=== PATIENT | male | born 1985 | race Caucasian/White ===

== ENCOUNTER 2017-11-04 05:21 | Inpatient (IN) ==
[2017-11-04 05:57] LABS: Baso % (Auto) 0.2 % (0.0-2.0); Eos # (Auto) 0.1 th/mm3 (0.0-0.4); Eos % (Auto) 0.4 % (0.0-4.0); Hematocrit 36.4 % (39.0-51.0); Hemoglobin 12.6 gm/dL (13.0-17.0); Lymph # (Auto) 0.5 th/mm3 (1.0-4.8); Lymph % (Auto) 3.2 % (9.0-44.0); Mean Corpuscular HGB Conc 34.7 % (32.0-36.0); Mean Corpuscular Hemoglobin 28.3 pg (27.0-34.0); Mean Corpuscular Volume 81.5 fL (80.0-100.0); Mean Platelet Volume 10.7 fL (7.0-11.0); Mono # (Auto) 0.8 th/mm3 (0.0-0.9); Mono % (Auto) 4.8 % (0.0-8.0); Neut # (Auto) 14.6 th/mm3 (1.8-7.7); Neut % (Auto) 91.4 % (16.0-70.0); Platelet Count 112 th/mm3 (150-450); Red Blood Count 4.47 mil/mm3 (4.50-5.90); Red Cell Distribution Width 12.9 % (11.6-17.2)
[2017-11-04 06:12] LABS: Activated Partial Thrombo Time 44.8 sec (24.3-30.1); Prothrombin Time 91.7 sec (9.8-11.6)
[2017-11-04 06:14] LABS: INR 9.2 Ratio
--- NOTE | 2017-11-04 06:14 | ED ---
HPI General Chief complaint: Altered Mental Status Stated complaint: Poss OD Time Seen by Provider: 11/04/17 05:39 Source: patient and EMS Mode of arrival: EMS Limitations: altered mental status History of Present Illness HPI narrative: The patient is a 31 year old male who presents to the [facility] emergency department with a history of being found on the kitchen floor by friends prior to arrival. The patient according to ambulance services had suspected overdose, however the patient was unable or unwilling to say what drugs he has taken. The patient was noted to have difficulty moving his right upper and right lower extremity on arrival. The patient also was experiencing an expressive aphasia. Stroke alert was called by me. The patient's history was limited due to the expressive aphasia. The patient was only able to say his name with difficulty. The patient also seem to have difficulty understanding commands as when asked to follow commands he would repeatedly say "when." And again was unable or unwilling to cooperate. The patient was unable to provide any of his past medical history. The patient's medical history was obtained from reviewing the electronic medical record. The patient intermittently is crying on exam on examination. He was able to state that he does not feel well. He denies having any nausea. A review of the electronic medical record reveals that the patient was just recently in the emergency department for evaluation of headache, myalgias, low back pain. Patient had reported IV drug use of heroin at that time. Evaluation was done on October 30, 2017, 5 days ago. The patient underwent blood work which revealed a mild hypokalemia, T scan of the brain that showed no acute abnormality, T-spine and L -spine MRI that showed no patient was noted to be tachycardic and did have blood cultures done at that time that all grew out Staphylococcus aureus. Related Data Home Medications Medication Instructions Recorded Confirmed No Known Home Medications 11/04/17 11/04/17 Allergies Allergy/AdvReac Type Severity Reaction Status Date / Time No Known Allergies Allergy Unverified 10/30/17 21:54 Review of Systems ROS Unobtainable unobtainable due to mental status (Patient is a poor historian with expressive aphasia.) PMFSH History History Provided By: Patient Medical History Medical History IV drug user (Acute) Diabetes (Acute) Hypertension (Acute) Social History Social History Substance History: Unable to Obtain Second Hand Smoke Exposure: No Smoking Status: Unknown if ever smoked How Often Do You Have a Drink Containing Alcohol: Unable to Obtain Recent Travel in [facility] within the Last 8 Weeks: No Recent Out of Country Travel within the Last 8 Weeks: No Exam Const General: no acute distress and well developed Nutritional Appearance: well nourished Orientation: awake, oriented to person, not oriented to place, not oriented to time and confused Limitations: altered mental status [facility] Head: normocephalic and atraumatic Nose: no nasal discharge and no epistaxis Mouth: moist mucous membranes Throat: posterior oropharynx normal Eyes Sclera: normal sclerae Pupils: PERRL Neck Neck: no meningeal signs, trachea midline and no JVD Resp Effort & Inspection: no use of accessory muscles Auscultation: clear to auscultation bilaterally Cardio Rate: regular rate Rhythm: regular rhythm Heart Sounds: no murmurs GI Inspection: non-distended Palpation: soft, no hepatosplenomegaly and nontender Back/Spine/Pelvis Back: no CVA tenderness Cervical Spine: No cervical spinal tenderness Thoracic/Lumbar Spine: No thoracic spinal tenderness and No lumbar spinal tenderness Skin General: dry skin (warm) and other (Patient is noted to have track fan extremities. The patient is noted on examination of his palms to have what appears to be osler's nodes, erythematous nodules palms.) Neuro General: alert, awake and oriented (Person, however not place, time, or situation) Cranial Nerves: CN's II-XI intact bilaterally Speech: expressive aphasia and receptive aphasia Motor: muscle tone abnormal (Flaccid paralysis right lower extremity, paresis of the right upper extremity) Sensory Exam: other (Decreased sensation in the right upper and right lower extremity) Coordination: other (Uncooperative with coordination testing) Extrem General: normal to inspection, no clubbing, no cyanosis and no edema Psych Mood: congruent mood Affect: normal affect Judgment: judgment good Course Consultations Consultation #1: The patient's case including history, pertinent physical examination findings, and laboratory studies were discussed with Dr. Barton, the neurosurgeon, at approximately 6:15 AM. It was agreed that the patient would be admitted to the piano sounding board matcher's service. Consultation #2: The patient's case including history, pertinent physical examination findings, and laboratory studies were discussed with Dr Grimm, the piano sounding board matcher, at approximately 6:20 AM. It was agreed that the patient would be admitted to his service. Initial Documented Vital Signs Pulse Oximetry 98 11/04/17 05:35 Last Documented Vital Signs Temperature 98.9 F 11/04/17 06:05 Pulse Rate 107 H 11/04/17 07:02 Respiratory Rate 16 11/04/17 07:02 Blood Pressure 117/55 L 11/04/17 07:02 Pulse Oximetry 98 11/04/17 07:03 Critical Care Time Critical Care Time: Yes Total Critical Care Time: 38 Attestation: Aggregate critical care time was a 38 minutes. Time to perform other separately billable procedures was not included in the critical care time. My time did not include minutes spent treating any other patients simultaneously or on activities that did not directly contribute to the patient's treatment. The services I provided to this patient were to treat and/or prevent clinically significant deterioration that could result in: I provided critical care services requiring my management, as noted below: Chart data review, documentation time, medication orders and management, vital sign assessments/reviewing monitor data, ordering and reviewing lab tests, ordering and interpreting/reviewing x-rays and diagnostic studies, care of the patient and discussion of the patient with the admitting physicians. NIH Stroke Scale NIHSS Time Completed NIHSS Time Completed: 05:46 NIH Stroke Scale Level of Consciousness: 1-Drowsy Orientation Questions: 1-One task correct Responds to Commands: 1-One task correct Gaze Eye Movement: 0-Horizontal movement WNL Visual Abreu: 0-No visual field defect Facial Movement: 0-Normal Motor Functions Arm LEFT: 0-No drift Motor Functions Arm RIGHT: 2-Falls before 10 seconds Motor Functions Leg LEFT: 0-No drift Motor Functions Leg RIGHT: 3-No effort against gravity Limb Ataxia: 0-No ataxia Sensory Loss: 1-Mild sensory loss Best Language: 1-Mild aphasia Articulation: 0-Normal Extinction or Inattention Sensory: 0-Absent Total: 10 Medical Decision Making MDM Narrative Medical decision making narrative: During the course of the patient's emergency department visit, the patient's history, examination, and differential diagnosis were reviewed with the patient. The patient was placed on a cardiac care unit nurse with oximetry and frequent blood pressure monitoring. The patient had IV access obtained and blood work sent for analysis. A diagnostic evaluation was started regarding this patient's new neurologic symptoms. A stroke alert was called. The patient's case was initially discussed with Dr. Laureano. At the time of onset of symptoms is unknown, he reports that the patient is not a TPA candidate. The patient was initially provided normal saline IV fluids at 70 mL/h. The patient's head of the bed was placed flat. Dr. Ellis, the radiologist, called regarding the patient CT scan of the brain findings. The patient's CT scan of the brain revealed new subcortical white matter infarct posteriorly in the right parietal lobe, also appears to be some faint subarachnoid hemorrhage over the high parietal convexities, no fracture. The patient's INR was noted to be 9.2. A call was placed out to the neurosurgeon. I spoke to Dr. Barton regarding this patient's case. He agreed with the plan to proceed with MRI of the brain with and without contrast after the patient's history, examination, and laboratory to studies were discussed with him. As the hospital is out of [facility], he agreed with the plan to proceed with administration of fresh frozen plasma. I then spoke to Dr. Grimm, the piano sounding board matcher on-call who did agree to have the patient for further evaluation and treatment at this time. The patient's other laboratory studies are remarkable for a white count of 16, toxic vacuolation present, toxic granulation present, platelets 112, neutrophil predominance at 91.4, hemoglobin is 12.6. PT 91.7, fibrinogen 555, PTT 44.8, VBG reveals a pH of 7.48, bicarb 26.2, chemistry is remarkable for a lactic acid of 2.3, troponin I 0.48, sodium 132, potassium 2.9, chloride 94, total protein 8.6, total bilirubin is 1.1, sodium 134, alk phos 149, urinalysis shows 30 protein moderate occult blood few mucus. Salicylate is 28.1. CTA of the head and neck showed no acute abnormality. The patient's chest x- ray shows a patchy left perihilar and right basilar airspace disease with possible developing right-sided effusion. The patient was admitted to the hospital in critical condition and sent to a bed under the care of the piano sounding board matcher's service. Differential Diagnosis Differential Diagnosis: Septic embolization to the brain, versus endocarditis, versus ischemic stroke, versus intracranial hemorrhage, versus encephalopathy related to sepsis Medical Records Medical records reviewed: Yes I reviewed the patient's medical records. Lab Data Lab results reviewed: Yes I reviewed the patient's lab results. Result diagrams: 11/04/17 05:45 Lab Results 11/04/17 11/04/17 11/04/17 Range/Units 05:45 05:45 05:45 WBC 16.0 H (4.0-11.0) th/mm3 RBC 4.47 L (4.50-5.90) mil/mm3 Hgb 12.6 L (13.0-17.0) gm/dL POC Hgb (Calc) 12.6 L (13.0-17.0) g/dL Hct 36.4 L (39.0-51.0) % POC Hct 37.0 L (39-51.0) % MCV 81.5 (80.0-100.0) fL MCH 28.3 (27.0-34.0) pg MCHC 34.7 (32.0-36.0) % RDW 12.9 (11.6-17.2) % Plt Count 112 L (150-450) th/mm3 MPV 10.7 (7.0-11.0) fL Prelim Diff (Auto) Slide review pending Neut % (Auto) 91.4 H (16.0-70.0) % Lymph % (Auto) 3.2 L (9.0-44.0) % [place] % (Auto) 4.8 (0.0-8.0) % Eos % (Auto) 0.4 (0.0-4.0) % Baso % (Auto) 0.2 (0.0-2.0) % Neut # (Auto) 14.6 H (1.8-7.7) th/mm3 Lymph # (Auto) 0.5 L (1.0-4.8) th/mm3 [place] # (Auto) 0.8 (0.0-0.9) th/mm3 Eos # (Auto) 0.1 (0.0-0.4) th/mm3 Baso # (Auto) 0.0 (0.0-0.2) th/mm3 WBC Differential Manual diff final Seg Neuts % (Manual) 79 H (16-70) % Band Neuts % (Manual) 8 H (0-6) % Lymphocytes % (Manual) 5 L (9-44) % Monocytes % (Manual) 6 (0-8) % Metamyelocytes % (Man) 2 H (0-1) % Abs Neuts (Manual) 14.2 H (1.8-7.7) th/mm3 Nucleated RBCs/100 WBC 1 H (0-0) /100 WBC Differential Comment . Toxic Granulation 1+ H (None) Toxic Vacuolation Present H (None) Platelet Estimate Low L (Normal) Platelet Morphology Normal (Normal) RBC Morphology Normal (Normal) PT 91.7 H (9.8-11.6) sec INR 9.2 H* Ratio APTT 44.8 H (24.3-30.1) sec Fibrinogen 555 H (227-377) mg/dL Puncture Site Patient Temperature VBG pH (7.360-7.400) VBG pCO2 (44-48) mmHG VBG pO2 (35-40) mmHG VBG HCO3 (22-26) mmol/L VBG O2 Saturation (70-76) % VBG O2 Content (9.0-17.0) Vol % VBG Base Excess (-2-2) mmol/L VBG Carboxyhemoglobin (0-4) % VBG Methemoglobin (0-2) % Hemoglobin (12.0-16.0) G/DL O2 Delivery Device Liter Flow L/M Inspired O2 % Critical Value POC Sodium 132 L (137-144) mmol/L POC Potassium 2.9 L* (3.6-5.0) mmol/L POC Chloride 94 L (102-111) mmol/L POC BUN 21 (5-21) mg/dL POC Creatinine 1.3 (0.6-1.3) mg/dL POC Glucose 108 (68-110) mg/dL Lactic Acid (0.4-2.0) mmol/L Total Creatine Kinase 52 (39-308) U/L Troponin I 0.48 H (0.02-0.05) ng/mL Urine Color (Yellw/Straw) Urine Clarity (Clear) Urine pH (5.0-8.5) Ur Specific [place] (1.002-1.035) Urine Protein (Neg-Trace) mg/dL Urine Glucose (UA) (Negative) mg/dL Urine Ketones (Negative) mg/dL Urine Occult Blood (Negative) Urine Nitrate (Negative) Urine Bilirubin (Negative) Urine Urobilinogen (Less than 2) mg/dL Ur Leukocyte Esterase (Negative) Urine RBC (0-3) /hpf Urine WBC (0-5) /hpf Amorphous Sediment (None) /hpf Urine Mucus (Occasional) /lpf Micro UA Comment Urine Culture Comments Salicylates (2.8-20.0) mg/dL Serum Alcohol Less than 3 (0-5) mg/dL Blood Type Blood Type Recheck Antibody Screen 11/04/17 11/04/17 11/04/17 Range/Units 05:45 05:45 05:45 WBC (4.0-11.0) th/mm3 RBC (4.50-5.90) mil/mm3 Hgb (13.0-17.0) gm/dL POC Hgb (Calc) (13.0-17.0) g/dL Hct (39.0-51.0) % POC Hct (39-51.0) % MCV (80.0-100.0) fL MCH (27.0-34.0) pg MCHC (32.0-36.0) % RDW (11.6-17.2) % Plt Count (150-450) th/mm3 MPV (7.0-11.0) fL Prelim Diff (Auto) Neut % (Auto) (16.0-70.0) % Lymph % (Auto) (9.0-44.0) % [place] % (Auto) (0.0-8.0) % Eos % (Auto) (0.0-4.0) % Baso % (Auto) (0.0-2.0) % Neut # (Auto) (1.8-7.7) th/mm3 Lymph # (Auto) (1.0-4.8) th/mm3 [place] # (Auto) (0.0-0.9) th/mm3 Eos # (Auto) (0.0-0.4) th/mm3 Baso # (Auto) (0.0-0.2) th/mm3 WBC Differential Seg Neuts % (Manual) (16-70) % Band Neuts % (Manual) (0-6) % Lymphocytes % (Manual) (9-44) % Monocytes % (Manual) (0-8) % Metamyelocytes % (Man) (0-1) % Abs Neuts (Manual) (1.8-7.7) th/mm3 Nucleated RBCs/100 WBC (0-0) /100 WBC Differential Comment Toxic Granulation (None) Toxic Vacuolation (None) Platelet Estimate (Normal) Platelet Morphology (Normal) RBC Morphology (Normal) PT (9.8-11.6) sec INR Ratio APTT (24.3-30.1) sec Fibrinogen (227-377) mg/dL Puncture Site Patient Temperature VBG pH (7.360-7.400) VBG pCO2 (44-48) mmHG VBG pO2 (35-40) mmHG VBG HCO3 (22-26) mmol/L VBG O2 Saturation (70-76) % VBG O2 Content (9.0-17.0) Vol % VBG Base Excess (-2-2) mmol/L VBG Carboxyhemoglobin (0-4) % VBG Methemoglobin (0-2) % Hemoglobin (12.0-16.0) G/DL O2 Delivery Device Liter Flow L/M Inspired O2 % Critical Value POC Sodium (137-144) mmol/L POC Potassium (3.6-5.0) mmol/L POC Chloride (102-111) mmol/L POC BUN (5-21) mg/dL POC Creatinine (0.6-1.3) mg/dL POC Glucose (68-110) mg/dL Lactic Acid (0.4-2.0) mmol/L Total Creatine Kinase (39-308) U/L Troponin I (0.02-0.05) ng/mL Urine Color (Yellw/Straw) Urine Clarity (Clear) Urine pH (5.0-8.5) Ur Specific [place] (1.002-1.035) Urine Protein (Neg-Trace) mg/dL Urine Glucose (UA) (Negative) mg/dL Urine Ketones (Negative) mg/dL Urine Occult Blood (Negative) Urine Nitrate (Negative) Urine Bilirubin (Negative) Urine Urobilinogen (Less than 2) mg/dL Ur Leukocyte Esterase (Negative) Urine RBC (0-3) /hpf Urine WBC (0-5) /hpf Amorphous Sediment (None) /hpf Urine Mucus (Occasional) /lpf Micro UA Comment Urine Culture Comments Salicylates 28.1 H (2.8-20.0) mg/dL Serum Alcohol Cancelled (0-5) mg/dL Blood Type B Positive Blood Type Recheck Required Antibody Screen Negative 07/23/18 07/23/18 07/23/18 Range/Units 05:45 06:20 06:45 WBC (4.0-11.0) th/mm3 RBC (4.50-5.90) mil/mm3 Hgb (13.0-17.0) gm/dL POC Hgb (Calc) (13.0-17.0) g/dL Hct (39.0-51.0) % POC Hct (39-51.0) % MCV (80.0-100.0) fL MCH (27.0-34.0) pg MCHC (32.0-36.0) % RDW (11.6-17.2) % Plt Count (150-450) th/mm3 MPV (7.0-11.0) fL Prelim Diff (Auto) Neut % (Auto) (16.0-70.0) % Lymph % (Auto) (9.0-44.0) % [place] % (Auto) (0.0-8.0) % Eos % (Auto) (0.0-4.0) % Baso % (Auto) (0.0-2.0) % Neut # (Auto) (1.8-7.7) th/mm3 Lymph # (Auto) (1.0-4.8) th/mm3 [place] # (Auto) (0.0-0.9) th/mm3 Eos # (Auto) (0.0-0.4) th/mm3 Baso # (Auto) (0.0-0.2) th/mm3 WBC Differential Seg Neuts % (Manual) (16-70) % Band Neuts % (Manual) (0-6) % Lymphocytes % (Manual) (9-44) % Monocytes % (Manual) (0-8) % Metamyelocytes % (Man) (0-1) % Abs Neuts (Manual) (1.8-7.7) th/mm3 Nucleated RBCs/100 WBC (0-0) /100 WBC Differential Comment Toxic Granulation (None) Toxic Vacuolation (None) Platelet Estimate (Normal) Platelet Morphology (Normal) RBC Morphology (Normal) PT (9.8-11.6) sec INR Ratio APTT (24.3-30.1) sec Fibrinogen Cancelled (227-377) mg/dL Puncture Site Patient Temperature VBG pH (7.360-7.400) VBG pCO2 (44-48) mmHG VBG pO2 (35-40) mmHG VBG HCO3 (22-26) mmol/L VBG O2 Saturation (70-76) % VBG O2 Content (9.0-17.0) Vol % VBG Base Excess (-2-2) mmol/L VBG Carboxyhemoglobin (0-4) % VBG Methemoglobin (0-2) % Hemoglobin (12.0-16.0) G/DL O2 Delivery Device Liter Flow L/M Inspired O2 % Critical Value POC Sodium (137-144) mmol/L POC Potassium (3.6-5.0) mmol/L POC Chloride (102-111) mmol/L POC BUN (5-21) mg/dL POC Creatinine (0.6-1.3) mg/dL POC Glucose (68-110) mg/dL Lactic Acid 2.3 H (0.4-2.0) mmol/L Total Creatine Kinase (39-308) U/L Troponin I (0.02-0.05) ng/mL Urine Color Yellow (Yellw/Straw) Urine Clarity Hazy H (Clear) Urine pH 5.0 (5.0-8.5) Ur Specific [place] 1.017 (1.002-1.035) Urine Protein 30 H (Neg-Trace) mg/dL Urine Glucose (UA) Negative (Negative) mg/dL Urine Ketones Trace (Negative) mg/dL Urine Occult Blood Moderate H (Negative) Urine Nitrate Negative (Negative) Urine Bilirubin Negative (Negative) Urine Urobilinogen 2.0 H (Less than 2) mg/dL Ur Leukocyte Esterase Negative (Negative) Urine RBC 3 (0-3) /hpf Urine WBC 5 (0-5) /hpf Amorphous Sediment Occasional H (None) /hpf Urine Mucus Few H (Occasional) /lpf Micro UA Comment Cath-culture not ind Urine Culture Comments Cath-cult not ind Salicylates (2.8-20.0) mg/dL Serum Alcohol (0-5) mg/dL Blood Type Blood Type Recheck Antibody Screen 11/04/17 Range/Units 06:45 WBC (4.0-11.0) th/mm3 RBC (4.50-5.90) mil/mm3 Hgb (13.0-17.0) gm/dL POC Hgb (Calc) (13.0-17.0) g/dL Hct (39.0-51.0) % POC Hct (39-51.0) % MCV (80.0-100.0) fL MCH (27.0-34.0) pg MCHC (32.0-36.0) % RDW (11.6-17.2) % Plt Count (150-450) th/mm3 MPV (7.0-11.0) fL Prelim Diff (Auto) Neut % (Auto) (16.0-70.0) % Lymph % (Auto) (9.0-44.0) % [place] % (Auto) (0.0-8.0) % Eos % (Auto) (0.0-4.0) % Baso % (Auto) (0.0-2.0) % Neut # (Auto) (1.8-7.7) th/mm3 Lymph # (Auto) (1.0-4.8) th/mm3 [place] # (Auto) (0.0-0.9) th/mm3 Eos # (Auto) (0.0-0.4) th/mm3 Baso # (Auto) (0.0-0.2) th/mm3 WBC Differential Seg Neuts % (Manual) (16-70) % Band Neuts % (Manual) (0-6) % Lymphocytes % (Manual) (9-44) % Monocytes % (Manual) (0-8) % Metamyelocytes % (Man) (0-1) % Abs Neuts (Manual) (1.8-7.7) th/mm3 Nucleated RBCs/100 WBC (0-0) /100 WBC Differential Comment Toxic Granulation (None) Toxic Vacuolation (None) Platelet Estimate (Normal) Platelet Morphology (Normal) RBC Morphology (Normal) PT (9.8-11.6) sec INR Ratio APTT (24.3-30.1) sec Fibrinogen (227-377) mg/dL Puncture Site By electric meter installer from iv Patient Temperature 98.6 VBG pH 7.48 H (7.360-7.400) VBG pCO2 35 L (44-48) mmHG VBG pO2 25 L* (35-40) mmHG VBG HCO3 26 (22-26) mmol/L VBG O2 Saturation 39 L (70-76) % VBG O2 Content 7.1 L (9.0-17.0) Vol % VBG Base Excess 2.9 H (-2-2) mmol/L VBG Carboxyhemoglobin 0.9 (0-4) % VBG Methemoglobin 0.7 (0-2) % Hemoglobin 12.9 (12.0-16.0) G/DL O2 Delivery Device Nasal cannula Liter Flow 2.00 L/M Inspired O2 21 % Critical Value Yes POC Sodium (137-144) mmol/L POC Potassium (3.6-5.0) mmol/L POC Chloride (102-111) mmol/L POC BUN (5-21) mg/dL POC Creatinine (0.6-1.3) mg/dL POC Glucose (68-110) mg/dL Lactic Acid (0.4-2.0) mmol/L Total Creatine Kinase (39-308) U/L Troponin I (0.02-0.05) ng/mL Urine Color (Yellw/Straw) Urine Clarity (Clear) Urine pH (5.0-8.5) Ur Specific [place] (1.002-1.035) Urine Protein (Neg-Trace) mg/dL Urine Glucose (UA) (Negative) mg/dL Urine Ketones (Negative) mg/dL Urine Occult Blood (Negative) Urine Nitrate (Negative) Urine Bilirubin (Negative) Urine Urobilinogen (Less than 2) mg/dL Ur Leukocyte Esterase (Negative) Urine RBC (0-3) /hpf Urine WBC (0-5) /hpf Amorphous Sediment (None) /hpf Urine Mucus (Occasional) /lpf Micro UA Comment Urine Culture Comments Salicylates (2.8-20.0) mg/dL Serum Alcohol (0-5) mg/dL Blood Type Blood Type Recheck Antibody Screen Imaging Data Radiologist's impression: Chest X-Ray 11/04/17 05:39 CONCLUSION: 1. Patchy left perihilar and right basilar airspace disease with possible developing right-sided effusion. 2. Lungs are hypoinflated. Head CT 11/04/17 05:39 CONCLUSION: 1. There appear to be new, subcortical white matter infarct posteriorly in the right parietal lobe. 2. There also appears to be some faint subarachnoid hemorrhage over the high parietal convex cities bilaterally 3. No fractures, Report was called by [ Dr. Ellis to Dr. Sloan in the ED at 0614 hours] Head CTA 11/04/17 05:39 CONCLUSION: 1. Patient is left vertebral dominant. 2. Otherwise, intracranial vessels are all patent without embolic or aneurysmal disease. Neck CTA 11/04/17 05:39 CONCLUSION: 1. Patient is left vertebral dominant. 2. Otherwise, arch and cervical vessels are patent throughout. Discharge Plan Discharge Disposition Patient Disposition: 30 Still Patient Discharge Condition Condition: Critical Discharge Details Diagnosis: Neurologic abnormality, Altered mental status, Sepsis Physicians Team ED Provider: Yodit Sloan Primary Care Provider: Primary Care Anisa Dotson Attending Provider: Stephen Grimm Other Providers: Barrera Robb ; Ambrosio Barton ; Clara Tellez Status ED Status: Admitted Patient
[2017-11-04 06:15] LABS: Creatine Kinase 52 U/L (39-308); Troponin I 0.48 ng/mL (0.02-0.05)
--- NOTE | 2017-11-04 06:16 | CT ---
EXAM DATE: 11/04/2017 6:05 AM EDT AGE/SEX: 31 years / Male INDICATIONS: Stroke Alert. Altered mental status. CLINICAL DATA: This is the patient's initial encounter. Patient reports that signs and symptoms have been present for 1 day and indicates a pain score of 0/10. MEDICAL/SURGICAL HISTORY: None. None. RADIATION DOSE: 56.34 CTDI (mGy) [place] [facility] [place]. . TECHNIQUE: CT of the head without contrast. Using automated exposure control and adjustment of the mA and/or kV according to patient size, radiation dose was kept as low as reasonably achievable to ob tain optimal diagnostic quality images. DICOM format image data is available electronically for revi ew and comparison. FINDINGS: Cerebrum: The ventricles are normal for age. Faint area of hypodensity in the peripheral white matte r posteriorly in the right parietal lobe. There appears to be some faint subarachnoid hemorrhage in the perivertexl sulci bilaterally. No extraaxial fluid collections are seen. Posterior Fossa: The cerebellum and brainstem are intact. The 4th ventricle is midline. The cerebe llopontine angle is unremarkable. Extracranial: The visualized portion of the orbits is intact. Skull: The calvaria is intact. No evidence of skull fracture. CONCLUSION: 1. There appear to be new, subcortical white matter infarct posteriorly in the right parietal lobe. 2. There also appears to be some faint subarachnoid hemorrhage over the high parietal convex cities bilaterally 3. No fractures, Report was called by [ Dr. Ellis to Dr. Sloan in the ED at 0614 hours] Electronically signed by: Javier Ellis MD 11/04/2017 6:15 AM EDT
--- NOTE | 2017-11-04 06:20 | CT ---
EXAM DATE: 11/04/2017 6:07 AM EDT AGE/SEX: 31 years / Male INDICATIONS: Stroke alert; patient is non responsive and does not move his right leg. CLINICAL DATA: This is the patient's initial encounter. Patient reports that signs and symptoms have been present for 1 day and indicates a pain score of Nonresponsive. MEDICAL/SURGICAL HISTORY: Non-responsive. Non-responsive. RADIATION DOSE: 9.74 CTDI (mGy) ; Combined studies [place]PAR[place]: [facility] [place]. . TECHNIQUE: Volumetric scanning was performed using a multi-row detector CT scanner during bolus infu alexsandra of 100 ml Visipaque 320 (iodixanol) nonionic water-soluble contrast as a cumulative dose for mu ltiple exams. The data was post processed with a variety of visualization algorithms including full volume maximum intensity projection, multi-planar sliding thin slab reformation, curved planar refor mation, and surface rendering techniques. Using automated exposure control and adjustment of the mA and/or kV according to patient size, radiation dose was kept as low as reasonably achievable to obtai n optimal diagnostic quality images. DICOM format image data is available electronically for review and comparison. FINDINGS: There is excellent visualization of the major intracranial arteries out to the second-order branch ve ssels. There is no evidence for aneurysm, vessel truncation or stenosis, and no evidence for vascula r malformation. Patient is left vertebral dominant with the right vertebral possibly terminating in PICA branch CONCLUSION: 1. Patient is left vertebral dominant. 2. Otherwise, intracranial vessels are all patent without embolic or aneurysmal disease. Electronically signed by: Javier Ellis MD 11/04/2017 6:19 AM EDT
--- NOTE | 2017-11-04 06:21 | XR ---
EXAM DATE: 11/04/2017 6:16 AM EDT AGE/SEX: 31 years / Male INDICATIONS: Stroke alert. CLINICAL DATA: This is the patient's initial encounter. Patient reports that signs and symptoms have been present for 1 day and indicates a pain score of 0/10. MEDICAL/SURGICAL HISTORY: None. None. COMPARISON: [facility] – [place], CHEST 1V SINGLE AP, 10/30/2017. . FINDINGS: Lungs are hypoinflated. Interval development of some left perihilar density possibly representing ate lectasis. Right basilar consolidation with possible associated effusion CONCLUSION: 1. Patchy left perihilar and right basilar airspace disease with possible developing right-sided eff usion. 2. Lungs are hypoinflated. Electronically signed by: Javier Ellis MD 11/04/2017 6:20 AM EDT
[2017-11-04] MEDS ORDERED: Vancomycin Inj 1 GM/200 ML PIGGYBACK IV.SIG ONE (06:29)
--- NOTE | 2017-11-04 06:31 | CT ---
EXAM DATE: 11/04/2017 6:26 AM EDT AGE/SEX: 31 years / Male INDICATIONS: Stroke alert; patient non responsive. CLINICAL DATA: This is the patient's initial encounter. Patient reports that signs and symptoms have been present for 1 day and indicates a pain score of Nonresponsive. MEDICAL/SURGICAL HISTORY: Non-responsive. Non-responsive. RADIATION DOSE: 9.74 CTDI (mGy) ; Combined studies COMPARISON: No prior exams available for comparison. TECHNIQUE: Volumetric scanning was performed using a multirow detector CT scanner during bolus infus ion of 100 ml Visipaque 320 (iodixanol) nonionic water-soluble contrast as a cumulative dose for mul tiple exams. The data was postprocessed with a variety of visualization algorithms including full-v olume maximum intensity projection, multiplanar sliding thin-slab reformation, curved-planar reformat ion, and surface-rendering techniques. Using automated exposure control and adjustment of the mA and /or kV according to patient size, radiation dose was kept as low as reasonably achievable to obtain o ptimal diagnostic quality images. DICOM format image data is available electronically for review and comparison. Elevated flow velocities and ICA/CCA ratios have been found to correlate with increased degrees of ve ssel stenosis, calculated as percentage of diameter relative to a normal segment of distal ICA/CCA. FINDINGS: Aortic Arch: There is a three-vessel origin of the great vessels from the aorta. No evidence of ost ial narrowing Right Carotid: The common carotid artery is intact. The carotid bulb has a normal configuration wit hout ulceration or narrowing. The internal carotid artery lumen is smooth without stenosis. The ext ernal carotid artery is intact. Left Carotid: The common carotid artery is intact. The carotid bulb has a normal configuration with out ulceration or narrowing. The internal carotid artery lumen is smooth without stenosis. The exte rnal carotid artery is intact. Vertebrals: Patient is left vertebral dominant. Both vertebrals are patent CONCLUSION: 1. Patient is left vertebral dominant. 2. Otherwise, arch and cervical vessels are patent throughout. Electronically signed by: Javier Ellis MD 11/04/2017 6:30 AM EDT
[2017-11-04] MEDS ORDERED: Potassium Chlor 40 mEq Premix 40 MEQ/100 ML PIGGYBACK IV.SIG PRN ×2 (06:34)
[2017-11-04] MEDS ORDERED: Potassium Chlor 20 mEq Premix 20 MEQ/100 ML PIGGYBACK IV.SIG PRN (06:34)
[2017-11-04] MEDS ORDERED: Magnesium Oxide 400 MG Tablet PO PRN (06:34)
[2017-11-04] MEDS ORDERED: Potassium Chloride 25 MEQ Effervescent Tablet PO PRN (06:34)
[2017-11-04] MEDS ORDERED: Sodium Phosphate Inj 30 MMOL in Sodium Chlor 0.9% Inj 250 ML IV.SIG PRN (06:34)
[2017-11-04] MEDS ORDERED: Potassium Phosphate Inj 30 MMOL in Sodium Chlor 0.9% Inj 250 ML IV.SIG PRN (06:34)
[2017-11-04] MEDS ORDERED: Potassium Phosphate 500 MG Soluble Tablet PO PRN ×2 (06:34)
[2017-11-04] MEDS ORDERED: Magnesium Sulfate Inj 2 GM in Sodium Chlor 0.9% Inj 96 ML IV.SIG PRN (06:34)
[2017-11-04] MEDS ORDERED: Magnesium Sulfate Inj 4 GM in Sodium Chlor 0.9% Inj 92 ML IV.SIG PRN (06:34)
[2017-11-04 06:45] LABS: Lymphocytes 5 % (9-44); Metamyelocytes 2 % (0-1); Monocytes 6 % (0-8); Tallied Nucleated RBC 1 (0-0)
[2017-11-04 06:46] LABS: Platelet Morphology Normal (Normal); RBC Morphology Normal (Normal); Toxic Granulation 1+; Toxic Vacuolation Present
[2017-11-04] MEDS: Sod Chloride 0.9% Inj 1,000 ML IV.CONT SCH ×2 (06:47→21:19)
[2017-11-04 06:55] LABS: VBG Base Excess 2.9 mmol/L (-2-2); VBG Blood Gas Oxygen Content 7.1 Vol % (9.0-17.0); VBG PCO2 35 mmHG (44-48); VBG PH 7.48 (7.360-7.400)
[2017-11-04 06:56] LABS: VBG PO2 25 mmHG (35-40)
[2017-11-04] MEDS ORDERED: Sodium Chlor 0.9% Inj 250 ML IV.SIG SCH ×2 (07:00→09:00)
[2017-11-04 07:14] LABS: Amorphous Sediment,Urine Occasional /hpf; Bilirubin,Urine Negative (Negative); Clarity,Urine Hazy (Clear); Color,Urine Yellow (Yellw/Straw); Glucose,Urine (UA) Negative (Negative); Leukocyte Esterase,Urine Negative (Negative); Mucus,Urine Few /lpf (Occasional); Nitrite,Urine Negative (Negative); Specific Gravity,Urine 1.017 (1.002-1.035)
[2017-11-04 07:28] LABS: Amphetamine Urine With Conf Neg (Neg); Benzodiazepine Urine With Conf Neg (Neg)
[2017-11-04] MEDS: Pantoprazole Inj 40 MG Vial IV.PUSH SCH (08:18)
[2017-11-04] MEDS ORDERED: Vancomycin Inj 1,000 MG in Sodium Chlor 0.9% Inj 250 ML IV.SIG ONE (09:00)
--- NOTE | 2017-11-04 09:47 | MB ---
cc: Barrera Hatfield MD DATE: 11/04/2017 HISTORY OF PRESENT ILLNESS: This patient is a 31-year-old man with IV heroin use who came in last night as a possible stroke alert. He was found on the kitchen floor by friends. He couldn't move the right side well. Appeared to have expressive aphasia. CT showed some hemorrhage in the left frontal sulci and what appears to be an old right parietal infarct. CTA of the neck and akhiok of [place] read as negative. He was recently in the ER 10/30/2017 for headache, myalgia low back pain. He had some mild hypokalemia. CT of the brain was negative. MRI of the cervical and LS spine were negative for any abscess. He had Staphylococcus aureus grew out of a blood culture. It is unclear to me what his disposition was after that. Evidently, he had a head CT done on 10/30/2017 but I cannot seem to locate that in the computer in the old or new file, but it is reported that there was a new stroke in the right parietal area. The patient is not a tPA on this admission due to the hemorrhage. Unable to find any other significant past medical history on him. CURRENT MEDICATIONS: 1. Ceftriaxone. 2. Protonix. 3. Vancomycin. PHYSICAL EXAMINATION: VITAL SIGNS: He is afebrile, heart rate 114, sinus rhythm, 132/60. NECK: There are no carotid bruits. HEART: I did not detect a heart murmur. Regular rhythm and rate at this time. NEUROLOGIC: He does appear to be aphasic both receptive and expressive. It is hard to tell if his visual watts are full or not. He does not really follow commands well for me. He is definitely moving his left side much better than the right. He appears to be possibly a 0/5 in the right lower extremity and possibly a 2-3/5 in the right upper extremity. A mild right facial droop is noted. There is some ankle clonus on the right side, but toes are downgoing bilaterally. He is awake and alert, makes good eye contact. IMAGING: CTAs as noted above. LABORATORY DATA: White count 16,000, hematocrit 37, platelet count 112. His INR is 9.2. ABG 7.48, 35 with pO2 of 25. I am not sure that is not a venous stick. Basic metabolic profile, creatinine was normal, potassium 2.9, sodium 132. UA is basically negative. Urine drug screen positive for marijuana, positive for opiates and normal LFTs on 10/30/2017. 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 Seizure could be another possibility. He has a high index suspicion for endocarditis. RECOMMENDATIONS: We will get an echocardiogram, MRI of the brain and EEG and some other blood work. It is unclear to me why his INR is so high. I will repeat that. I would recommend having ID to see. Defer to the med team for that. MD MADIHA Paez/OLIVE , 09:04 AM , 09:45 AM
--- NOTE | 2017-11-04 10:01 | P.HPCC ---
History of Present Illness Service: Critical care medicine Primary Care Physician: No Primary Care Physician Chief Complaint: right sided weakness History of Present Illness: This is a 31yM who recently presented to the emergency department on 10/30 with subjective fevers and back pain. At that time he was given an MRI of the spine due to his IV drug use and concern for endocarditis. His MRI spine was negative and he was discharged home. Blood cultures that were drawn at that time returned 4 out of 4 bottles with MSSA. Patient was attempted to be contacted at his home to return for medical attention, but he was unable to be contacted. He represents today with acute altered mental status and was found on the floor of his apartment. He is aphasic and has significant right-sided hemiparesis/weakness. CT brain demonstrates a small amount of subarachnoid blood and small areas of decreased density suggestive of acute infarcts. MRI confirms multiple small areas of infarct. I evaluated the patient and he is quite altered and aphasic and no additional information is available from him. I performed bedside critical care ultrasonography which demonstrates a large mobile mass on the aortic valve with associated severe aortic regurgitation. No pericardial effusion. In addition all this, the patient has a new finding of an INR of 9.8 as well as an elevated salicylate level of 28. Given there is recent community history seated to suggest that some of the IV drugs in the area have been contaminated with rapid poison and or Coumadin/warfarin, I have a high degree of suspicion that the patient may have injected contaminated IV drugs. I have contacted poison control who is following along. We have ordered 4 units of FFP emergently to be released to the patient. We have called pharmacy and due to a national shortage of the drug, we do not have any [facility]ra available. I have also ordered FEIBA as an alternative to K [facility]ra. Inpatient Certification: I certify that the inpatient services were ordered in accordance with Medicare regulations governing the order. This includes certification that hospital inpatient services are reasonable and necessary and in the case of services not specified as inpatient-only under 42 CFR 419.22(n), that they are appropriately provided as inpatient services in accordance to with the 2-midnight benchmark under 43 CFR 412.3(e) Estimated Total Length of Stay (Days): 7 Plans for Post Hospital Care: Not yet determined Review of Systems unobtainable due to mental condition, unobtainable due to mental status PMFSH - History History Provided By: Medical Record - Medical / Surgical Hx Neg / Unobtainable Medical Problems Denied: Unable to Obtain Surgical History: Unable to Obtain - Medical History Medical History: Medical History (Last Updated 11/04/17 @ 06:18 by Yodit Sloan MD) IV drug user Diabetes Hypertension - Tobacco History Second Hand Smoke Exposure: No Smoking Status: Unknown if ever smoked - Alcohol History How Often Do You Have a Drink Containing Alcohol: Unable to Obtain - Substance Use History Substance History: Unable to Obtain - Travel History Recent Travel in the [place] Within the Last 8 Weeks: No Recent Travel Out of the Country Within the Last 8 Weeks: No - Immunization History Tetanus Immunization: Unable to Assess Hx Influenza Vaccine This Season: Unable to Assess Medications and Allergies Active Medications: Active Medications Albuterol (Duoneb Neb (Prn)) 1 ampul NEB Q2HR NEB PRN PRN Reason: WHEEZING Chlorhexidine Gluconate (Chlorhexidine 2% Cloth) 3 pack TOPICAL DAILY@0400 JONATHON Stop: 11/10/17 03:59 Chlorhexidine Gluconate (Chlorhexidine 2% Cloth) 3 pack TOPICAL DAILY@0400 PRN PRN Reason: Extra cloth needed Stop: 11/10/17 03:59 Sodium Chloride (Ns Inj) 1,000 mls @ 70 mls/hr IV.CONT .[id number] JONATHON Last Admin: 11/04/17 06:47 Dose: 70 mls/hr Sodium Chloride (Ns Inj) 250 mls @ 15 mls/hr IV.SIG ONCE JONATHON Stop: 11/04/17 23:39 Last Admin: 11/04/17 08:44 Dose: Not Given Magnesium Sulfate Inj 4 gm/ (Sodium Chloride) 100 mls @ 50 mls/hr IV.SIG UNSCH PRN PRN Reason: For Magnesium 0.9 - 1.1 mg/dL Magnesium Sulfate Inj 2 gm/ (Sodium Chloride) 100 mls @ 50 mls/hr IV.SIG UNSCH PRN PRN Reason: For Magnesium 1.2 - 1.6 mg/dL Potassium Chloride (Kcl 40 Meq Premix Inj) 40 meq in 100 mls @ 25 mls/hr IV.SIG Q2H PRN PRN Reason: For Potassium 2.8 - 3.2 mEq/L Potassium Chloride (Kcl 20 Meq Premix Inj) 20 meq in 100 mls @ 50 mls/hr IV.SIG Q2H PRN PRN Reason: For Potassium 3.3 - 3.5 mEq/L Potassium Chloride (Kcl 40 Meq Premix Inj) 40 meq in 100 mls @ 25 mls/hr IV.SIG UNSCH PRN PRN Reason: For Potassium 3.3 - 3.5 mEq/L Potassium Chloride (Kcl 20 Meq Premix Inj) 20 meq in 100 mls @ 50 mls/hr IV.SIG Q2H PRN PRN Reason: For Potassium 2.8 - 3.2 mEq/L Last Admin: 11/04/17 08:19 Dose: 50 mls/hr Potassium Phosphate 30 mmol/ (Sodium Chloride) 260 mls @ 42 mls/hr IV.SIG UNSCH PRN PRN Reason: SEE LABEL COMMENTS Sodium Phosphate 30 mmol/ (Sodium Chloride) 260 mls @ 42 mls/hr IV.SIG UNSCH PRN PRN Reason: For Phosphorus < 2.5 mg/dL Ceftriaxone Sodium 2,000 mg/ (Sodium Chloride) 100 mls @ 200 mls/hr IV.SIG Q12H JONATHON Sodium Chloride (Ns Inj) 250 mls @ 15 mls/hr IV.SIG ONCE [facility] Stop: 11/05/17 01:39 Magnesium Oxide (Mag-Ox) 800 mg PO UNSCH PRN PRN Reason: For Magnesium 1.2 - 1.6 mg/dL Ondansetron HCl (Zofran Odt) 4 mg PO Q6H PRN PRN Reason: NAUSEA OR VOMITING Pantoprazole Sodium (Protonix Inj) 40 mg IV.PUSH DAILY [facility] Last Admin: 11/04/17 08:18 Dose: 40 mg Potassium Bicarb/Potassium Chloride (K-Lyte Cl Eff) 50 meq PO UNSCH PRN PRN Reason: For Potassium 3.3 - 3.5 mEq/L Potassium Phosphate (K-Phos Original) 2,000 mg PO UNSCH PRN PRN Reason: SEE LABEL COMMENTS Potassium Phosphate (K-Phos Original) 2,000 mg PO Q4H PRN PRN Reason: Phosphorus Less Than 2.5 mg/dL Sodium Chloride (Ns Flush) 2 ml IV.FLUSH BID [facility] Last Admin: 11/04/17 08:18 Dose: 2 ml Sodium Chloride (Ns Flush) 2 ml IV.FLUSH PRN PRN PRN Reason: FLUSH AFTER USING IV ACCESS Allergies Allergy/AdvReac Type Severity Reaction Status Date / Time No Known Allergies Allergy Unverified 10/30/17 21:54 Home Medications Medication Instructions Recorded Confirmed Type No Known Home Medications 11/04/17 11/04/17 History Results - Labs CBC & Chem 7: 11/04/17 05:45 11/04/17 15:50 Labs: Short CBC 11/04/17 Range/Units 05:45 WBC 16.0 H (4.0-11.0) th/mm3 Hgb 12.6 L (13.0-17.0) gm/dL Hct 36.4 L (39.0-51.0) % Plt Count 112 L (150-450) th/mm3 Cardiac Enzymes 11/04/17 Range/Units 05:45 Total Creatine Kinase 52 (39-308) U/L Troponin I 0.48 H (0.02-0.05) ng/mL Urine 11/04/17 Range/Units 06:20 Urine Color Yellow (Yellw/Straw) Urine Clarity Hazy H (Clear) Urine pH 5.0 (5.0-8.5) Ur Specific [place] 1.017 (1.002-1.035) Urine Protein 30 H (Neg-Trace) mg/dL Urine Glucose (UA) Negative (Negative) mg/dL - Imaging Impressions Chest X-Ray 11/04/17 05:39 CONCLUSION: 1. Patchy left perihilar and right basilar airspace disease with possible developing right-sided effusion. 2. Lungs are hypoinflated. Head CT 11/04/17 05:39 CONCLUSION: 1. There appear to be new, subcortical white matter infarct posteriorly in the right parietal lobe. 2. There also appears to be some faint subarachnoid hemorrhage over the high parietal convex cities bilaterally 3. No fractures, Report was called by [ Dr. Ellis to Dr. Sloan in the ED at 0614 hours] Head CTA 11/04/17 05:39 CONCLUSION: 1. Patient is left vertebral dominant. 2. Otherwise, intracranial vessels are all patent without embolic or aneurysmal disease. Neck CTA 11/04/17 05:39 CONCLUSION: 1. Patient is left vertebral dominant. 2. Otherwise, arch and cervical vessels are patent throughout. Exam Vital signs: Vital Signs 11/04/17 05:35 11/04/17 06:05 11/04/17 06:09 Temperature 37.2 C Pulse Rate 114 H Respiratory Rate 14 Blood Pressure 132/60 Pulse Oximetry 98 98 95 11/04/17 06:19 11/04/17 07:02 11/04/17 07:03 Temperature Pulse Rate 107 H Respiratory Rate 16 Blood Pressure 117/55 L Pulse Oximetry 94 L 98 11/04/17 07:44 11/04/17 09:41 Temperature Pulse Rate 110 H Respiratory Rate 14 Blood Pressure 119/57 L 124/76 Pulse Oximetry 95 Narrative: GENERAL: Young male, lying in bed in distress HEENT: Normocephalic. Atraumatic. Pupils 3 mm, equal, round, reactive, conjugate. Mucous membranes are moist NECK: Trachea is midline. There is no JVD. CHEST: Equal chest rise. Nasal cannula oxygen. CARDIOVASCULAR: Tachycardic rate, regular rhythm. Sinus. ABDOMEN: Soft, nontender, nondistended. No guarding. MUSCULOSKELETAL: Pulses 2+. No peripheral edema. Multiple linear scars over the bilateral upper and lower extremities consistent with needle fan. Positive Jan[place]ay lesions. NEUROLOGICAL: RASS -1. Both expressive and receptive aphasia. Musculoskeletal strength on the right is 1/5 in both the upper and lower extremities. Musculoskeletal strength on the left is 5 out of 5. Sensation is difficult to assess due to the patient's aphasia. Septic Shock Reassessment Septic shock perfusion: reassessment completed Caprini VTE Risk Assessment Caprini VTE Risk Assessment: Moderate/High Risk (score >= 2) VTE Pharmacological Exception Reason: Intracranial lesions Caprini Risk Assessment Model: Point Value = 1 Point Value = 2 Point Value = 3 Point Value = 5 Age 41-60 Minor surgery BMI > 25 kg/m2 Swollen legs Varicose veins or History of unexplained or recurrent spontaneous Oral contraceptives or hormone replacement Sepsis (< 1 month) Serious lung disease, including pneumonia (< 1 month) Abnormal pulmonary function Acute myocardial infarction Congestive heart failure (< 1 month) History of inflammatory bowel disease Medical patient at bed rest Age 61-74 Arthroscopic surgery Major open surgery (> 45 min) Laparoscopic surgery (> 45 min) Malignancy Confined to bed (> 72 hours) Immobilizing plaster cast Central venous access Age >= 75 History of VTE Family history of VTE Factor V Leiden Prothrombin [id number] Lupus anticoagulant Anticardiolipin antibodies Elevated serum homocysteine Heparin-induced thrombocytopenia Other congenital or acquired thrombophilia Stroke (< 1 month) Elective arthroplasty Hip, pelvis, or leg fracture Acute spinal cord injury (< 1 month) Prophylaxis Regimen: Total Risk Factor Score Risk Level Prophylaxis Regimen 0-1 Low Early ambulation 2 Moderate Order ONE of the following: *Sequential Compression Device (SCD) *Heparin 5000 units SQ BID 3-4 Higher Order ONE of the following medications: *Heparin 5000 units SQ TID *Enoxaparin/Lovenox 40 mg SQ daily (WT < 150 kg, CrCl > 30 mL/min) *Enoxaparin/Lovenox 30 mg SQ daily (WT < 150 kg, CrCl > 10-29 mL/min) *Enoxaparin/Lovenox 30 mg SQ BID (WT < 150 kg, CrCl > 30 mL/min) AND/OR *Sequential Compression Device (SCD) 5 or more Highest Order ONE of the following medications: *Heparin 5000 units SQ TID (Preferred with Epidurals) *Enoxaparin/Lovenox 40 mg SQ daily (WT < 150 kg, CrCl > 30 mL/min) *Enoxaparin/Lovenox 30 mg SQ daily (WT < 150 kg, CrCl > 10-29 mL/min) *Enoxaparin/Lovenox 30 mg SQ BID (WT < 150 kg, CrCl > 30 mL/min) AND *Sequential Compression Device (SCD) Assessment and Plan - Assessment and Plan Plan: Assessment: 31-year-old male with 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 Patient remains very critically ill. We will need to admit him to the ICU for frequent neuro monitoring, emergent reversal of coagulopathy, and management of his multiorgan system failure. Plan by systems: Neurologic: Acute 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 Acute aphasia Right sided weakness Hemorrhagic Conversion Subarachnoid hemorrhage IV drug abuse - frequent neuro checks - avoid long-acting sedatives - MRI brain - neurosurgery consultation - EEG: no evidence of ictal activity Respiratory: Wean oxygen for goal SPO2 greater than 92% PT consult Cardiovascular: Mixed septic/cardiogenic shock Severe aortic regurgitation Large aortic valve vegetation 1x1.7cm Mild aortic stenosis from vegetation NS @ 70cc/hr trend lactates Renal: Acute kidney injury - place fontaine - monitor uop - secondary to poor perfusion from cardiac output and severe sepsis -- Strict I/Os FEN/GI: Lactic Acidosis Acute protein calorie malnutrition- severe NPO swallow eval ICU electrolyte protocol mivf trend lactate Heme/ID: Severe coagulopathy: suspected contaminated iv drugs with Rat Poison/Coumadin/ Warfarin Salicylate Poisoning: suspected contaminated IV drugs - recent history is absent for coagulopathy - stat 4 ffp and recheck - vit K 10 SQ - poison control involved - basic UDS +opiates and canabinoids. detailed UDS still pending - there have been reports of contaminated bath salts. in addition to detailed UDS, specific Bath Salts metabolites sent to reference lab. - salicylate levels downtrending. Endocrine: -- SSI Prophylaxis: GI Prophylaxis protonix DVT Prophylaxis -- SCDs holding pharmacologic DVT prophylaxis in the setting of hemorrhagic conversion. Lines: marito fontaine Dispo: admit to ICU. critically ill. This patient remains critically ill with one or more organ systems which are or may become a threat to life. I have spent in excess of 82 minutes discontinuously in the care and management of this patient. This time is exclusive of procedures, and includes, but is not limited to, evaluation of the patient, review of the medical record, discussions with family, consultants, nursing staff, or respiratory therapy, and documentation in the medical record. Frequently reevaluated the patient on a number of discussions with state poison control.
--- NOTE | 2017-11-04 10:58 | P.CONID ---
History of Present Illness Service: Infectious disease Consult date: 11/04/17 Requesting Physician: Stephen Grimm Reason for Consult: Evaluate patient with possible endocarditis Primary Care Provider: No Primary Care Physician Chief Complaint: right sided weakness History of Present Illness: Patient seen and examined. Records reviewed. Patient is a 31-year-old male, who initially presented to [facility] emergency room October 30 complaining of 3 day history of headache. He gave a history of IV drug use. He was not febrile during that visit. WBC was normal. He underwent CT of the brain which was negative. Also underwent MRI of the thoracic and lumbar spine which were both negative for any infection. 2 blood cultures were done at that time and he was discharged. He came back to the hospital after his friends found him on the kitchen floor. He was reportedly unable to move his right side. And he was also noted to have some difficulty speaking. He remains afebrile. His white count is elevated. His CT of the head is now showing some findings in the right parietal area, as well as faint subarachnoid hemorrhage. CTA of the neck is negative. He has evidence of right-sided weakness, as well as expressive aphasia. The 2 blood cultures done on his ED visit is now reported as growing MSSA. Infectious disease consultation has been requested to evaluate the patient. Review of Systems unobtainable due to mental status PMFSH - History History Provided By: Patient - Medical History Medical History: Medical History (Last Updated 11/04/17 @ 06:18 by Yodit Sloan MD) IV drug user Diabetes Hypertension - Tobacco History Second Hand Smoke Exposure: No Smoking Status: Unknown if ever smoked - Alcohol History How Often Do You Have a Drink Containing Alcohol: Unable to Obtain - Substance Use History Substance History: Unable to Obtain - Travel History Recent Travel in the [place] Within the Last 8 Weeks: No Recent Travel Out of the Country Within the Last 8 Weeks: No - Immunization History Tetanus Immunization: Unable to Assess Hx Influenza Vaccine This Season: Unable to Assess Medications and Allergies Active Medications: Active Medications Albuterol (Duoneb Neb (Prn)) 1 ampul NEB Q2HR NEB PRN PRN Reason: WHEEZING Chlorhexidine Gluconate (Chlorhexidine 2% Cloth) 3 pack TOPICAL DAILY@0400 JONATHON Stop: 11/10/17 03:59 Chlorhexidine Gluconate (Chlorhexidine 2% Cloth) 3 pack TOPICAL DAILY@0400 PRN PRN Reason: Extra cloth needed Stop: 11/10/17 03:59 Sodium Chloride (Ns Inj) 1,000 mls @ 70 mls/hr IV.CONT .[id number] JONATHON Last Admin: 11/04/17 06:47 Dose: 70 mls/hr Sodium Chloride (Ns Inj) 250 mls @ 15 mls/hr IV.SIG ONCE JONATHON Stop: 11/04/17 23:39 Last Admin: 11/04/17 08:44 Dose: Not Given Magnesium Sulfate Inj 4 gm/ (Sodium Chloride) 100 mls @ 50 mls/hr IV.SIG UNSCH PRN PRN Reason: For Magnesium 0.9 - 1.1 mg/dL Magnesium Sulfate Inj 2 gm/ (Sodium Chloride) 100 mls @ 50 mls/hr IV.SIG UNSCH PRN PRN Reason: For Magnesium 1.2 - 1.6 mg/dL Potassium Chloride (Kcl 40 Meq Premix Inj) 40 meq in 100 mls @ 25 mls/hr IV.SIG Q2H PRN PRN Reason: For Potassium 2.8 - 3.2 mEq/L Potassium Chloride (Kcl 20 Meq Premix Inj) 20 meq in 100 mls @ 50 mls/hr IV.SIG Q2H PRN PRN Reason: For Potassium 3.3 - 3.5 mEq/L Potassium Chloride (Kcl 40 Meq Premix Inj) 40 meq in 100 mls @ 25 mls/hr IV.SIG UNSCH PRN PRN Reason: For Potassium 3.3 - 3.5 mEq/L Potassium Chloride (Kcl 20 Meq Premix Inj) 20 meq in 100 mls @ 50 mls/hr IV.SIG Q2H PRN PRN Reason: For Potassium 2.8 - 3.2 mEq/L Last Admin: 11/04/17 08:19 Dose: 50 mls/hr Potassium Phosphate 30 mmol/ (Sodium Chloride) 260 mls @ 42 mls/hr IV.SIG UNSCH PRN PRN Reason: SEE LABEL COMMENTS Sodium Phosphate 30 mmol/ (Sodium Chloride) 260 mls @ 42 mls/hr IV.SIG UNSCH PRN PRN Reason: For Phosphorus < 2.5 mg/dL Ceftriaxone Sodium 2,000 mg/ (Sodium Chloride) 100 mls @ 200 mls/hr IV.SIG Q12H JONATHON Sodium Chloride (Ns Inj) 250 mls @ 15 mls/hr IV.SIG ONCE JONATHON Stop: 11/05/17 01:39 Magnesium Oxide (Mag-Ox) 800 mg PO UNSCH PRN PRN Reason: For Magnesium 1.2 - 1.6 mg/dL Ondansetron HCl (Zofran Odt) 4 mg PO Q6H PRN PRN Reason: NAUSEA OR VOMITING Pantoprazole Sodium (Protonix Inj) 40 mg IV.PUSH DAILY JONATHON Last Admin: 11/04/17 08:18 Dose: 40 mg Potassium Bicarb/Potassium Chloride (K-Lyte Cl Eff) 50 meq PO UNSCH PRN PRN Reason: For Potassium 3.3 - 3.5 mEq/L Potassium Phosphate (K-Phos Original) 2,000 mg PO UNSCH PRN PRN Reason: SEE LABEL COMMENTS Potassium Phosphate (K-Phos Original) 2,000 mg PO Q4H PRN PRN Reason: Phosphorus Less Than 2.5 mg/dL Sodium Chloride (Ns Flush) 2 ml IV.FLUSH BID JONATHON Last Admin: 11/04/17 08:18 Dose: 2 ml Sodium Chloride (Ns Flush) 2 ml IV.FLUSH PRN PRN PRN Reason: FLUSH AFTER USING IV ACCESS Allergies Allergy/AdvReac Type Severity Reaction Status Date / Time No Known Allergies Allergy Unverified 10/30/17 21:54 Home Medications Medication Instructions Recorded Confirmed Type No Known Home Medications 11/04/17 11/04/17 History Exam Vital signs: Vital Signs 11/04/17 05:35 11/04/17 06:05 11/04/17 06:09 Temperature 98.9 F Pulse Rate 114 H Respiratory Rate 14 Blood Pressure 132/60 Pulse Oximetry 98 98 95 11/04/17 06:19 11/04/17 07:02 11/04/17 07:03 Temperature Pulse Rate 107 H Respiratory Rate 16 Blood Pressure 117/55 L Pulse Oximetry 94 L 98 11/04/17 07:44 11/04/17 09:41 Temperature Pulse Rate 110 H Respiratory Rate 14 Blood Pressure 119/57 L 124/76 Pulse Oximetry 95 Narrative: Physical Examination GENERAL: Patient is a well-nourished, well-developed male, awake and alert, not in respiratory distress. he is following commands, but did not speak SKIN: Warm and dry. Has red embolic lesions in BLE. Has Embolic lesions on L hand HEAD: Atraumatic. Normocephalic. No temporal wasting, or tenderness. EYES: [place] conjunctiva. Has petechia on L conjunctiva. Pupils equal, round and reactive to light. Extraocular movements full and intact. No scleral icterus. No injection or drainage. EARS, NOSE AND THROAT: Nose without bleeding or purulent nasal discharge. No sinus tenderness. Mucous membranes pink and moist. NECK: Trachea midline. Supple and not tender, no meningeal signs CARDIOVASCULAR: Regular rate and rhythm. Tachycardic. Has murmur L precordium. RESPIRATORY: Clear to auscultation. Breath sounds equal bilaterally. No rales , wheezing or rhonchi ABDOMEN: Soft, non-tender, nondistended. Bowel sounds present and normoactive. No guarding. No rebound. No organomegaly. EXTREMITIES: No clubbing, cyanosis, or edema. No joint effusion. No calf tenderness. Well perfused and warm. NEUROLOGICAL: Awake and alert. Not speaking when I examined him. Following commands. Has decreased nasolabial fold on R side, tongue to R. Not mocing his RUE, has 1/5 on his RLE. Good strength LUE and LLE. PSYCHIATRIC: Cooperative. LINE: No evidence of infection Results - Labs CBC & Chem 7: 11/04/17 05:45 Labs: Laboratory Results - last 24 hr 11/04/17 11/04/17 11/04/17 05:45 05:45 05:45 WBC 16.0 H RBC 4.47 L Hgb 12.6 L POC Hgb (Calc) 12.6 L Hct 36.4 L POC Hct 37.0 L MCV 81.5 MCH 28.3 MCHC 34.7 RDW 12.9 Plt Count 112 L MPV 10.7 Prelim Diff (Auto) Slide review pending Neut % (Auto) 91.4 H Lymph % (Auto) 3.2 L [place] % (Auto) 4.8 Eos % (Auto) 0.4 Baso % (Auto) 0.2 Neut # (Auto) 14.6 H Lymph # (Auto) 0.5 L [place] # (Auto) 0.8 Eos # (Auto) 0.1 Baso # (Auto) 0.0 WBC Differential Manual diff final Seg Neuts % (Manual) 79 H Band Neuts % (Manual) 8 H Lymphocytes % (Manual) 5 L Monocytes % (Manual) 6 Metamyelocytes % (Man) 2 H Abs Neuts (Manual) 14.2 H Nucleated RBCs/100 WBC 1 H Differential Comment . Toxic Granulation 1+ H Toxic Vacuolation Present H Platelet Estimate Low L Platelet Morphology Normal RBC Morphology Normal PT 91.7 H INR 9.2 H* APTT 44.8 H Fibrinogen 555 H Puncture Site Patient Temperature VBG pH VBG pCO2 VBG pO2 VBG HCO3 VBG O2 Saturation VBG O2 Content VBG Base Excess VBG Carboxyhemoglobin VBG Methemoglobin Hemoglobin O2 Delivery Device Liter Flow Inspired O2 Critical Value POC Sodium 132 L POC Potassium 2.9 L* POC Chloride 94 L POC BUN 21 POC Creatinine 1.3 POC Glucose 108 Lactic Acid Total Creatine Kinase 52 Troponin I 0.48 H Urine Color Urine Clarity Urine pH Ur Specific [place] Urine Protein Urine Glucose (UA) Urine Ketones Urine Occult Blood Urine Nitrate Urine Bilirubin Urine Urobilinogen Ur Leukocyte Esterase Urine RBC Urine WBC Amorphous Sediment Urine Mucus Micro UA Comment Urine Culture Comments Salicylates Urine Opiates Screen Acetaminophen Ur Barbiturates Screen Ur Amphetamine Screen U Benzodiazepines Scrn Urine Cocaine Screen U Cannabinoids Screen Serum Alcohol Less than 3 Blood Type Blood Type Recheck Antibody Screen 11/04/17 11/04/17 11/04/17 05:45 05:45 05:45 WBC RBC Hgb POC Hgb (Calc) Hct POC Hct MCV MCH MCHC RDW Plt Count MPV Prelim Diff (Auto) Neut % (Auto) Lymph % (Auto) [place] % (Auto) Eos % (Auto) Baso % (Auto) Neut # (Auto) Lymph # (Auto) [place] # (Auto) Eos # (Auto) Baso # (Auto) WBC Differential Seg Neuts % (Manual) Band Neuts % (Manual) Lymphocytes % (Manual) Monocytes % (Manual) Metamyelocytes % (Man) Abs Neuts (Manual) Nucleated RBCs/100 WBC Differential Comment Toxic Granulation Toxic Vacuolation Platelet Estimate Platelet Morphology RBC Morphology PT INR APTT Fibrinogen Puncture Site Patient Temperature VBG pH VBG pCO2 VBG pO2 VBG HCO3 VBG O2 Saturation VBG O2 Content VBG Base Excess VBG Carboxyhemoglobin VBG Methemoglobin Hemoglobin O2 Delivery Device Liter Flow Inspired O2 Critical Value POC Sodium POC Potassium POC Chloride POC BUN POC Creatinine POC Glucose Lactic Acid Total Creatine Kinase Troponin I Urine Color Urine Clarity Urine pH Ur Specific [place] Urine Protein Urine Glucose (UA) Urine Ketones Urine Occult Blood Urine Nitrate Urine Bilirubin Urine Urobilinogen Ur Leukocyte Esterase Urine RBC Urine WBC Amorphous Sediment Urine Mucus Micro UA Comment Urine Culture Comments Salicylates Urine Opiates Screen Acetaminophen Less than 2.0 L Ur Barbiturates Screen Ur Amphetamine Screen U Benzodiazepines Scrn Urine Cocaine Screen U Cannabinoids Screen Serum Alcohol Cancelled Blood Type B Positive Blood Type Recheck Required Antibody Screen Negative 11/04/17 11/04/17 11/04/17 05:45 05:45 06:20 WBC RBC Hgb POC Hgb (Calc) Hct POC Hct MCV MCH MCHC RDW Plt Count MPV Prelim Diff (Auto) Neut % (Auto) Lymph % (Auto) [place] % (Auto) Eos % (Auto) Baso % (Auto) Neut # (Auto) Lymph # (Auto) [place] # (Auto) Eos # (Auto) Baso # (Auto) WBC Differential Seg Neuts % (Manual) Band Neuts % (Manual) Lymphocytes % (Manual) Monocytes % (Manual) Metamyelocytes % (Man) Abs Neuts (Manual) Nucleated RBCs/100 WBC Differential Comment Toxic Granulation Toxic Vacuolation Platelet Estimate Platelet Morphology RBC Morphology PT INR APTT Fibrinogen Cancelled Puncture Site Patient Temperature VBG pH VBG pCO2 VBG pO2 VBG HCO3 VBG O2 Saturation VBG O2 Content VBG Base Excess VBG Carboxyhemoglobin VBG Methemoglobin Hemoglobin O2 Delivery Device Liter Flow Inspired O2 Critical Value POC Sodium POC Potassium POC Chloride POC BUN POC Creatinine POC Glucose Lactic Acid Total Creatine Kinase Troponin I Urine Color Yellow Urine Clarity Hazy H Urine pH 5.0 Ur Specific [place] 1.017 Urine Protein 30 H Urine Glucose (UA) Negative Urine Ketones Trace Urine Occult Blood Moderate H Urine Nitrate Negative Urine Bilirubin Negative Urine Urobilinogen 2.0 H Ur Leukocyte Esterase Negative Urine RBC 3 Urine WBC 5 Amorphous Sediment Occasional H Urine Mucus Few H Micro UA Comment Cath-culture not ind Urine Culture Comments Cath-cult not ind Salicylates 28.1 H Urine Opiates Screen Acetaminophen Ur Barbiturates Screen Ur Amphetamine Screen U Benzodiazepines Scrn Urine Cocaine Screen U Cannabinoids Screen Serum Alcohol Blood Type Blood Type Recheck Antibody Screen 11/04/17 11/04/17 11/04/17 06:20 06:45 06:45 WBC RBC Hgb POC Hgb (Calc) Hct POC Hct MCV MCH MCHC RDW Plt Count MPV Prelim Diff (Auto) Neut % (Auto) Lymph % (Auto) [place] % (Auto) Eos % (Auto) Baso % (Auto) Neut # (Auto) Lymph # (Auto) [place] # (Auto) Eos # (Auto) Baso # (Auto) WBC Differential Seg Neuts % (Manual) Band Neuts % (Manual) Lymphocytes % (Manual) Monocytes % (Manual) Metamyelocytes % (Man) Abs Neuts (Manual) Nucleated RBCs/100 WBC Differential Comment Toxic Granulation Toxic Vacuolation Platelet Estimate Platelet Morphology RBC Morphology PT INR APTT Fibrinogen Puncture Site By psychiatric rn from iv Patient Temperature 98.6 VBG pH 7.48 H VBG pCO2 35 L VBG pO2 25 L* VBG HCO3 26 VBG O2 Saturation 39 L VBG O2 Content 7.1 L VBG Base Excess 2.9 H VBG Carboxyhemoglobin 0.9 VBG Methemoglobin 0.7 Hemoglobin 12.9 O2 Delivery Device Nasal cannula Liter Flow 2.00 Inspired O2 21 Critical Value Yes POC Sodium POC Potassium POC Chloride POC BUN POC Creatinine POC Glucose Lactic Acid 2.3 H Total Creatine Kinase Troponin I Urine Color Urine Clarity Urine pH Ur Specific [place] Urine Protein Urine Glucose (UA) Urine Ketones Urine Occult Blood Urine Nitrate Urine Bilirubin Urine Urobilinogen Ur Leukocyte Esterase Urine RBC Urine WBC Amorphous Sediment Urine Mucus Micro UA Comment Urine Culture Comments Salicylates Urine Opiates Screen Pos H Acetaminophen Ur Barbiturates Screen Neg Ur Amphetamine Screen Neg U Benzodiazepines Scrn Neg Urine Cocaine Screen Neg U Cannabinoids Screen Pos H Serum Alcohol Blood Type Blood Type Recheck Antibody Screen - Imaging Impressions Chest X-Ray 11/04/17 05:39 CONCLUSION: 1. Patchy left perihilar and right basilar airspace disease with possible developing right-sided effusion. 2. Lungs are hypoinflated. Head CT 11/04/17 05:39 CONCLUSION: 1. There appear to be new, subcortical white matter infarct posteriorly in the right parietal lobe. 2. There also appears to be some faint subarachnoid hemorrhage over the high parietal convex cities bilaterally 3. No fractures, Head CTA 11/04/17 05:39 CONCLUSION: 1. Patient is left vertebral dominant. 2. Otherwise, intracranial vessels are all patent without embolic or aneurysmal disease. Neck CTA 11/04/17 05:39 CONCLUSION: 1. Patient is left vertebral dominant. 2. Otherwise, arch and cervical vessels are patent throughout. Assessment and Plan - Plan Impression MSSA sepsis L sided endocarditis, due to IVDU CVA with R sided weakness, aphasia, due to embolic event from his IE IVDU Recommendation Follow blood C/S to document clearing Echo IV Oxacillin Stop Rocephin Follow results of work-up Monitor progress I will follow along with you Thank you for this consultation
[2017-11-04] MEDS ORDERED: Vancomycin Consult Pharmacy 1 EACH OTHER SCH (10:59)
[2017-11-04 11:45] LABS: Prothrombin Time 100.9 sec (9.8-11.6)
[2017-11-04 11:58] LABS: Albumin 2.1 g/dL (3.4-5.0); T4 (Thyroxine) 5.3 mcg/dL (4.5-12.1)
[2017-11-04 11:59] LABS: Chol/HDL Ratio 9.28 Ratio
[2017-11-04 12:08] LABS: INR 10.1 Ratio
[2017-11-04 12:13] LABS: Thyroid Stimulating Hormone 0.13 uIU/mL (0.358-3.740)
[2017-11-04 12:23] LABS: Total Protein 6.9 g/dL (6.4-8.2)
--- NOTE | 2017-11-04 12:57 | P.CONNS ---
History of Present Illness Service: Neurosurgery Consult date: 11/04/17 Requesting Physician: Yodit Sloan Reason for Consult: Subarachnoid hemorrhage Primary Care Provider: No Primary Care Physician Chief Complaint: right sided weakness History of Present Illness: 31 year old male who presents to the [facility] emergency department with a history of being found on the kitchen floor by friends prior to arrival. The patient according to ambulance services had suspected overdose, however the patient was unable or unwilling to say what drugs he has taken. The patient was noted to have difficulty moving his right upper and right lower extremity on arrival with an expressive aphasia. He was able to state that he does not feel well. He denies having any nausea. A review of the electronic medical record reveals that the patient was just recently in the emergency department for evaluation of headache, myalgias, low back pain. Patient had reported IV drug use of heroin at that time. Evaluation was done on October 30, 2017, 5 days ago. The patient underwent blood work which revealed a mild hypokalemia, CT scan of the brain showed no acute abnormality, patient was noted to be tachycardic and did have blood cultures done at that time that all grew out Staphylococcus aureus. Patient has aphasia with dysarthric speech and cannot relate much of the history. CT of the head obtained reveals right parietal stroke likely embolic as well as small areas of subarachnoid hemorrhage overlying the convexities bilaterally without any mass-effect or midline shift. He also has a severe coagulopathy and FFP transfusions have been ordered but pending. Review of Systems unobtainable due to mental condition Neurologic: Reports abnormal speech, Reports localized weakness, Reports unsteadiness PMFSH - History History Provided By: Patient - Medical History Medical History: Medical History (Last Updated 11/04/17 @ 06:18 by Yodit Sloan MD) IV drug user Diabetes Hypertension - Tobacco History Second Hand Smoke Exposure: No Smoking Status: Unknown if ever smoked - Alcohol History How Often Do You Have a Drink Containing Alcohol: Unable to Obtain - Substance Use History Substance History: Unable to Obtain - Travel History Recent Travel in the [place] Within the Last 8 Weeks: No Recent Travel Out of the Country Within the Last 8 Weeks: No - Immunization History Tetanus Immunization: Unable to Assess Hx Influenza Vaccine This Season: Unable to Assess Medications and Allergies Active Medications: Active Medications Albuterol (Duoneb Neb (Prn)) 1 ampul NEB Q2HR NEB PRN PRN Reason: WHEEZING Chlorhexidine Gluconate (Chlorhexidine 2% Cloth) 3 pack TOPICAL DAILY@0400 JONATHON Stop: 11/10/17 03:59 Chlorhexidine Gluconate (Chlorhexidine 2% Cloth) 3 pack TOPICAL DAILY@0400 PRN PRN Reason: Extra cloth needed Stop: 11/10/17 03:59 Sodium Chloride (Ns Inj) 1,000 mls @ 70 mls/hr IV.CONT .[id number] [facility] Last Admin: 11/04/17 06:47 Dose: 70 mls/hr Sodium Chloride (Ns Inj) 250 mls @ 15 mls/hr IV.SIG ONCE JONATHON Stop: 11/04/17 23:39 Last Admin: 11/04/17 08:44 Dose: Not Given Magnesium Sulfate Inj 4 gm/ (Sodium Chloride) 100 mls @ 50 mls/hr IV.SIG UNSCH PRN PRN Reason: For Magnesium 0.9 - 1.1 mg/dL Magnesium Sulfate Inj 2 gm/ (Sodium Chloride) 100 mls @ 50 mls/hr IV.SIG UNSCH PRN PRN Reason: For Magnesium 1.2 - 1.6 mg/dL Potassium Chloride (Kcl 40 Meq Premix Inj) 40 meq in 100 mls @ 25 mls/hr IV.SIG Q2H PRN PRN Reason: For Potassium 2.8 - 3.2 mEq/L Potassium Chloride (Kcl 20 Meq Premix Inj) 20 meq in 100 mls @ 50 mls/hr IV.SIG Q2H PRN PRN Reason: For Potassium 3.3 - 3.5 mEq/L Potassium Chloride (Kcl 40 Meq Premix Inj) 40 meq in 100 mls @ 25 mls/hr IV.SIG UNSCH PRN PRN Reason: For Potassium 3.3 - 3.5 mEq/L Potassium Chloride (Kcl 20 Meq Premix Inj) 20 meq in 100 mls @ 50 mls/hr IV.SIG Q2H PRN PRN Reason: For Potassium 2.8 - 3.2 mEq/L Last Admin: 11/04/17 08:19 Dose: 50 mls/hr Potassium Phosphate 30 mmol/ (Sodium Chloride) 260 mls @ 42 mls/hr IV.SIG UNSCH PRN PRN Reason: SEE LABEL COMMENTS Sodium Phosphate 30 mmol/ (Sodium Chloride) 260 mls @ 42 mls/hr IV.SIG UNSCH PRN PRN Reason: For Phosphorus < 2.5 mg/dL Sodium Chloride (Ns Inj) 250 mls @ 15 mls/hr IV.SIG ONCE JONATHON Stop: 11/05/17 01:39 Oxacillin Sodium 2 gm/ Sodium (Chloride) 100 mls @ 200 mls/hr IV.SIG Q4H JONATHON Magnesium Oxide (Mag-Ox) 800 mg PO UNSCH PRN PRN Reason: For Magnesium 1.2 - 1.6 mg/dL Ondansetron HCl (Zofran Odt) 4 mg PO Q6H PRN PRN Reason: NAUSEA OR VOMITING Pantoprazole Sodium (Protonix Inj) 40 mg IV.PUSH DAILY JONATHON Last Admin: 11/04/17 08:18 Dose: 40 mg Potassium Bicarb/Potassium Chloride (K-Lyte Cl Eff) 50 meq PO UNSCH PRN PRN Reason: For Potassium 3.3 - 3.5 mEq/L Potassium Phosphate (K-Phos Original) 2,000 mg PO UNSCH PRN PRN Reason: SEE LABEL COMMENTS Potassium Phosphate (K-Phos Original) 2,000 mg PO Q4H PRN PRN Reason: Phosphorus Less Than 2.5 mg/dL Sodium Chloride (Ns Flush) 2 ml IV.FLUSH BID JONATHON Last Admin: 11/04/17 08:18 Dose: 2 ml Sodium Chloride (Ns Flush) 2 ml IV.FLUSH PRN PRN PRN Reason: FLUSH AFTER USING IV ACCESS Allergies Allergy/AdvReac Type Severity Reaction Status Date / Time No Known Allergies Allergy Unverified 10/30/17 21:54 Home Medications Medication Instructions Recorded Confirmed Type No Known Home Medications 11/04/17 11/04/17 History Exam Vital signs: Vital Signs 11/04/17 05:35 11/04/17 06:05 11/04/17 06:09 Temperature 98.9 F Pulse Rate 114 H Respiratory Rate 14 Blood Pressure 132/60 Pulse Oximetry 98 98 95 11/04/17 06:19 11/04/17 07:02 11/04/17 07:03 Temperature Pulse Rate 107 H Respiratory Rate 16 Blood Pressure 117/55 L Pulse Oximetry 94 L 98 11/04/17 07:44 11/04/17 09:41 Temperature Pulse Rate 110 H Respiratory Rate 14 Blood Pressure 119/57 L 124/76 Pulse Oximetry 95 - Constitutional no acute distress, average body habitus, cooperative - Routine HEENT Exam Head: Present: normocephalic, atraumatic Eye: Present: EOMI, PERRL ENT: Present: mucous membranes moist, oropharynx clear, nares patent, external ear normal - Routine Neck Exam Present: supple, full ROM - Routine Respiratory Exam Present: CTA bilaterally - Routine Cardiovascular Exam Present: RRR, S1, S2, murmur - Routine Abdominal Exam Present: soft, normoactive bowel sounds - Routine Extremities Exam Comments: He has several areas of needle fan and ecchymosis in the upper extremities and hands and petechiae in the lower extremities - Routine Skin Exam Present: petechiae, ecchymosis - Routine Neurological Exam Present: alert, sensory deficit, motor deficit, facial asymmetry He is alert with a severe expressive aphasia and dysarthric speech, pupils are equal reactive he has a right facial droop and inability to close the right eye completely, right hemiplegia in the upper extremity and the dense paresis 1/5 in the lower extremity. He moves the left arm and leg spontaneously. Follows simple commands but cannot follow complex commands. - Routine Psychiatric Exam Present: cooperative, unable to assess Results - Laboratory Findings CBC and BMP: 11/04/17 05:45 Abnormal lab findings: Abnormal Labs 11/04/17 11/04/17 11/04/17 05:45 05:45 05:45 WBC 16.0 H RBC 4.47 L Hgb 12.6 L POC Hgb (Calc) 12.6 L Hct 36.4 L POC Hct 37.0 L Plt Count 112 L Neut % (Auto) 91.4 H Lymph % (Auto) 3.2 L Neut # (Auto) 14.6 H Lymph # (Auto) 0.5 L Seg Neuts % (Manual) 79 H Band Neuts % (Manual) 8 H Lymphocytes % (Manual) 5 L Metamyelocytes % (Man) 2 H Abs Neuts (Manual) 14.2 H Nucleated RBCs/100 WBC 1 H Toxic Granulation 1+ H Toxic Vacuolation Present H Platelet Estimate Low L ESR PT 91.7 H INR 9.2 H* APTT 44.8 H Fibrinogen 555 H VBG pH VBG pCO2 VBG pO2 VBG O2 Saturation VBG O2 Content VBG Base Excess POC Sodium 132 L POC Potassium 2.9 L* POC Chloride 94 L Lactic Acid Direct Bilirubin Alkaline Phosphatase Troponin I 0.48 H Albumin Triglycerides Cholesterol HDL Cholesterol TSH Urine Clarity Urine Protein Urine Occult Blood Urine Urobilinogen Amorphous Sediment Urine Mucus Salicylates Urine Opiates Screen Acetaminophen U Cannabinoids Screen 11/04/17 11/04/17 11/04/17 05:45 05:45 05:45 WBC RBC Hgb POC Hgb (Calc) Hct POC Hct Plt Count Neut % (Auto) Lymph % (Auto) Neut # (Auto) Lymph # (Auto) Seg Neuts % (Manual) Band Neuts % (Manual) Lymphocytes % (Manual) Metamyelocytes % (Man) Abs Neuts (Manual) Nucleated RBCs/100 WBC Toxic Granulation Toxic Vacuolation Platelet Estimate ESR 70 H PT INR APTT Fibrinogen VBG pH VBG pCO2 VBG pO2 VBG O2 Saturation VBG O2 Content VBG Base Excess POC Sodium POC Potassium POC Chloride Lactic Acid Direct Bilirubin Alkaline Phosphatase Troponin I Albumin Triglycerides Cholesterol HDL Cholesterol TSH Urine Clarity Urine Protein Urine Occult Blood Urine Urobilinogen Amorphous Sediment Urine Mucus Salicylates 28.1 H Urine Opiates Screen Acetaminophen Less than 2.0 L U Cannabinoids Screen 11/04/17 11/04/17 11/04/17 06:20 06:20 06:45 WBC RBC Hgb POC Hgb (Calc) Hct POC Hct Plt Count Neut % (Auto) Lymph % (Auto) Neut # (Auto) Lymph # (Auto) Seg Neuts % (Manual) Band Neuts % (Manual) Lymphocytes % (Manual) Metamyelocytes % (Man) Abs Neuts (Manual) Nucleated RBCs/100 WBC Toxic Granulation Toxic Vacuolation Platelet Estimate ESR PT INR APTT Fibrinogen VBG pH VBG pCO2 VBG pO2 VBG O2 Saturation VBG O2 Content VBG Base Excess POC Sodium POC Potassium POC Chloride Lactic Acid 2.3 H Direct Bilirubin Alkaline Phosphatase Troponin I Albumin Triglycerides Cholesterol HDL Cholesterol TSH Urine Clarity Hazy H Urine Protein 30 H Urine Occult Blood Moderate H Urine Urobilinogen 2.0 H Amorphous Sediment Occasional H Urine Mucus Few H Salicylates Urine Opiates Screen Pos H Acetaminophen U Cannabinoids Screen Pos H 11/04/17 11/04/17 11/04/17 06:45 11:15 11:15 WBC RBC Hgb POC Hgb (Calc) Hct POC Hct Plt Count Neut % (Auto) Lymph % (Auto) Neut # (Auto) Lymph # (Auto) Seg Neuts % (Manual) Band Neuts % (Manual) Lymphocytes % (Manual) Metamyelocytes % (Man) Abs Neuts (Manual) Nucleated RBCs/100 WBC Toxic Granulation Toxic Vacuolation Platelet Estimate ESR PT 100.9 H INR 10.1 H* APTT Fibrinogen VBG pH 7.48 H VBG pCO2 35 L VBG pO2 25 L* VBG O2 Saturation 39 L VBG O2 Content 7.1 L VBG Base Excess 2.9 H POC Sodium POC Potassium POC Chloride Lactic Acid Direct Bilirubin 0.3 H Alkaline Phosphatase 123 H Troponin I Albumin 2.1 L Triglycerides Cholesterol HDL Cholesterol TSH Urine Clarity Urine Protein Urine Occult Blood Urine Urobilinogen Amorphous Sediment Urine Mucus Salicylates Urine Opiates Screen Acetaminophen U Cannabinoids Screen 11/04/17 11/04/17 11/04/17 11:15 11:15 11:15 WBC RBC Hgb POC Hgb (Calc) Hct POC Hct Plt Count Neut % (Auto) Lymph % (Auto) Neut # (Auto) Lymph # (Auto) Seg Neuts % (Manual) Band Neuts % (Manual) Lymphocytes % (Manual) Metamyelocytes % (Man) Abs Neuts (Manual) Nucleated RBCs/100 WBC Toxic Granulation Toxic Vacuolation Platelet Estimate ESR PT INR APTT Fibrinogen VBG pH VBG pCO2 VBG pO2 VBG O2 Saturation VBG O2 Content VBG Base Excess POC Sodium POC Potassium POC Chloride Lactic Acid Direct Bilirubin Alkaline Phosphatase Troponin I Albumin Triglycerides 190 H Cholesterol 65 L HDL Cholesterol 7.0 L TSH 0.130 L Urine Clarity Urine Protein Urine Occult Blood Urine Urobilinogen Amorphous Sediment Urine Mucus Salicylates 25.0 H Urine Opiates Screen Acetaminophen U Cannabinoids Screen - Diagnostic Findings Additional findings: Impressions Chest X-Ray 11/04/17 05:39 CONCLUSION: 1. Patchy left perihilar and right basilar airspace disease with possible developing right-sided effusion. 2. Lungs are hypoinflated. Head CT 11/04/17 05:39 CONCLUSION: 1. There appear to be new, subcortical white matter infarct posteriorly in the right parietal lobe. 2. There also appears to be some faint subarachnoid hemorrhage over the high parietal convex cities bilaterally 3. No fractures, Report was called by [ Dr. Ellis to Dr. Sloan in the ED at 0614 hours] Head CTA 11/04/17 05:39 CONCLUSION: 1. Patient is left vertebral dominant. 2. Otherwise, intracranial vessels are all patent without embolic or aneurysmal disease. Neck CTA 11/04/17 05:39 CONCLUSION: 1. Patient is left vertebral dominant. 2. Otherwise, arch and cervical vessels are patent throughout. Assessment and Plan - Assessment (1) Stroke, embolic Code(s): I63.9 - Cerebral infarction, unspecified Status: Acute (2) Subarachnoid hemorrhage Code(s): I60.9 - Nontraumatic subarachnoid hemorrhage, unspecified Status: Acute (3) IV drug abuse Code(s): F19.10 - Other psychoactive substance abuse, uncomplicated Status: Acute (4) Coagulopathy Code(s): D68.9 - Coagulation defect, unspecified Status: Acute - Plan 31-year-old gentleman with a history of IV drug abuse and staph aureus septicemia with right parietal embolic stroke. He also has a severely elevated up with the with a small areas of bilateral convexity subarachnoid hemorrhage without any underlying cerebral aneurysm or vascular abnormality and CT angiogram of the brain. Agree with further workup with MRI scan of the brain with and without contrast to evaluate for septic emboli as well as cardiac workup for endocarditis. Correct the coagulopathy to reduce risk of further hemorrhage. He does not require any neurosurgical intervention at this point.
[2017-11-04] MEDS ORDERED: Gadobutrol PF 10 MMOL/10 ML Vial (for RAD) IV.SIG ONE (13:34)
[2017-11-04] MEDS ORDERED: Anti-Inhibitor Coagulant Complex Inj 500 UNITS Vial IV.PUSH STA (13:36)
--- NOTE | 2017-11-04 13:39 | MR ---
EXAM DATE: 11/04/2017 1:12 PM EDT AGE/SEX: 31 years / Male INDICATIONS: Altered mental status. CLINICAL DATA: This is the patient's initial encounter. Patient reports that signs and symptoms have been present for 1 day and indicates a pain score of Nonresponsive. MEDICAL/SURGICAL HISTORY: . IVDA. . unknown COMPARISON: No prior exams available for comparison. TECHNIQUE: Multiplanar, multisequence examination of the brain was performed without and with 8 ml Ga davist (gadobutrol) contrast as a single exam dose. FINDINGS: There is a large area of restricted diffusion in the left posterior MCA distribution involving the th ird fourth and fifth sylvian branches. Focal restricted diffusion is seen in the head of the caudate on the left and the right occipital region. These findings would suggest an embolic process. There is no parenchymal hemorrhage at yet. Small scattered hemosiderin deposits are seen throughout t he brain. Ventricular size is appropriate There are no extra-axial fluid collections appreciated Posterior fossa appears normal The basilar artery is patent. Both carotids are patent at the skull base. The main segments of the an terior cerebral artery middle cerebral arteries are patent by MRI. I cannot confirm subtle hemorrhage with a high parietal areas. Subacute subarachnoid hemorrhage is di fficult to see by MRI. CONCLUSION: 1. Acute infarcts as described above suggesting embolic occlusion as described above. Largest areas in the left posterior sylvian region. Electronically signed by: Jairo Gamez MD 11/04/2017 1:38 PM EDT
--- NOTE | 2017-11-04 16:33 | MG ---
cc: Barrera Hatfield MD EEG NUMBER: [id number] INDICATIONS: Stroke Alert. Bilateral strokes, large left MCA infarct. FINDINGS: Bifrontal 2 Hz delta slowing is noted. Hyperventilation is not performed. This is on a background of normal alpha and beta rhythms. Slowing is a little bit more prominent on the left than the right. No epileptiform or seizure activity is seen. Photic stimulation is performed without significant posterior driving. IMPRESSION: Bifrontal slowing consistent with a moderate diffuse encephalopathy, a little bit more on the left side accounting for the stroke, but no seizure activity is seen. MD MADIHA Paez/SHAWN , 03:59 PM , 04:32 PM
[2017-11-04] MEDS ORDERED: Anti-Inhibitor Coagulant Complex Inj 500 UNITS Vial IV.SIG STA (18:00)
[2017-11-04 18:26] LABS: Activated Partial Thrombo Time 39.1 sec (24.3-30.1); INR 2.1 Ratio; Prothrombin Time 20.9 sec (9.8-11.6)
[2017-11-04 18:29] LABS: Alanine Aminotransferase 18 U/L (12-78); Albumin 2.4 g/dL (3.4-5.0); Alkaline Phosphatase 116 U/L (45-117); Anion Gap 9 meq/L (5-15); Aspartate Aminotransferase 24 U/L (15-37); Blood Urea Nitrogen 19 mg/dL (7-18); Calcium 7.7 mg/dL (8.5-10.1); Carbon Dioxide 26.1 meq/L (21.0-32.0); Chloride 102 meq/L (98-107); Glomerular Filtration Rate 70 mL/min (>89); Glucose,Random 91 mg/dL (74-106); Sodium 137 meq/L (136-145); Total Protein 7.4 g/dL (6.4-8.2)
[2017-11-04 18:35] LABS: Potassium 2.9 meq/L (3.5-5.1)
--- NOTE | 2017-11-04 18:35 | ECHRPT ---
Indication: POSS SEPSIS, ENDOCARDITIS CONCLUSIONS The left ventricular systolic function is normal with an estimated ejection fraction in the range of 60-65%. Trace mitral valve regurgitation. Large vegetation noted on the aortic valve (1.7cm x 1.0cm) Mild obstruction of the aortic valve due to vegetation with a mean gradient of 11 mmHg Severe eccentric aortic regurgitation There is trace tricuspid valve regurgitation. BP: / HR: Rhythm: Sinus MEASUREMENTS (Male / Female) Normal Values Technical Quality:Fair 2D ECHO LV Diastolic Diameter PLAX 5.6 cm 4.2 - 5.9 / 3.9 - 5.3 cm LV Systolic Diameter PLAX 3.7 cm IVS Diastolic Thickness 0.8 cm 0.6 - 1.0 / 0.6 - 0.9 cm LVPW Diastolic Thickness 0.8 cm 0.6 - 1.0 / 0.6 - 0.9 cm LV Relative Wall Thickness 0.3 RV Internal Dim ED PLAX 1.9 cm LVOT Diameter 1.8 cm Aortic Root Diameter 2.5 cm LA Systolic Diameter LX 3.2 cm 3.0 - 4.0 / 2.7 - 3.8 cm M-MODE AV Cusp Separation MM 1.9 cm DOPPLER AV Peak Velocity 216.0 cm/s AV Peak Gradient 18.7 mmHg AV Mean Gradient 11.0 mmHg AV Velocity Time Integral 38.2 cm AI Peak Velocity 406.0 cm/s AI Peak Gradient 65.9 mmHg AI Pressure Half Time 112.0 ms LVOT Peak Velocity 137.0 cm/s LVOT Peak Gradient 7.5 mmHg LVOT Velocity Time Integral 23.8 cm AV Area Cont Eq vti 1.6 cm AV Area Cont Eq pk 1.6 cm Mitral E Point Velocity 117.0 cm/s Mitral A Point Velocity 57.4 cm/s Mitral E to A Ratio 2.0 PV Peak Velocity 70.7 cm/s PV Peak Gradient 2.0 mmHg FINDINGS LEFT VENTRICLE The left ventricular systolic function is normal with an estimated ejection fraction in the range of 60-65%. Normal left ventricular size. Wall thickness is normal. RIGHT VENTRICLE Normal right ventricular size and systolic function. LEFT ATRIUM The left atrial size is normal. RIGHT ATRIUM The right atrial size is normal. ATRIAL SEPTUM No atrial level shunt is demonstrated by color flow Doppler interrogation. AORTA The aortic root and proximal ascending aorta are normal in size on limited imaging. MITRAL VALVE Grossly normal Trace mitral valve regurgitation. No mitral valve stenosis. AORTIC VALVE Trileaflet aortic valve. Large vegetation noted on the aortic valve (1.7cm x 1.0cm) Mild obstruction with a mean gradient of 11 mmHg Severe eccentric aortic regurgitation TRICUSPID VALVE Structurally normal tricuspid valve. There is trace tricuspid valve regurgitation. No tricuspid valve stenosis. PULMONARY VALVE Trivial pulmonary valve regurgitation. VESSELS The inferior vena cava is normal in size. PERICARDIUM No pericardial effusion. Jessee Feng DO (Electronically Signed) Final Date:04 November 2017 18:33
[2017-11-04] MEDS ORDERED: Potassium Chloride 25 MEQ Effervescent Tablet PO SCH (19:15)
[2017-11-04] MEDS ORDERED: Potassium Chlor 40 mEq Premix 40 MEQ/100 ML PIGGYBACK IV.SIG ONE (19:15)
[2017-11-04] MEDS ORDERED: Phytonadione Inj 10 MG/ML Vial SQ ONE (20:17)
[2017-11-04] MEDS: Potassium Chlor 20 mEq Premix 20 MEQ/100 ML PIGGYBACK IV.SIG PRN (21:37)
[2017-11-04 23:07] LABS: Hepatitits B Surface Antigen Nonreactive (Nonreactive)
[2017-11-04 23:37] LABS: Hepatitis A IgM Antibody Nonreactive (Nonreactive)
--- NOTE | 2017-11-04 23:39 | ECG ---
Date Performed: 11/04/2017 Time Performed: 05:42:28 PTAGE: 31 years EKG: SINUS TACHYCARDIA NONSPECIFIC ST & T-WAVE ABNORMALITY ABNORMAL RHYTHM ECG NO PREVIOUS TRACING DOCTOR: Jessee Feng Interpretating Date/Time 11/04/2017 23:38:23
[2017-11-04] MEDS ORDERED: Propofol Inj 500 MG/50 ML Vial ONE (23:46)
[2017-11-04] MEDS ORDERED: Etomidate Inj 40 MG/20 ML Vial IV.PUSH ONE (23:54)
[2017-11-05] MEDS ORDERED: Midazolam 50 MG/50 ML Inj 50 MG/50 ML BAG IV.CONT PRN (00:04)
[2017-11-05] MEDS ORDERED: Propofol 1000 mg/100 ml Inj 1,000 MG/100 ML BOTTLE IV.CONT PRN (00:11)
[2017-11-05] MEDS ORDERED: Propofol Inj 500 MG/50 ML Vial ONE (00:33)
[2017-11-05] MEDS ORDERED: NEED HT & WT OTHER SCH (01:00)
--- NOTE | 2017-11-05 01:07 | XR ---
EXAM DATE: 11/05/2017 1:04 AM EDT AGE/SEX: 31 years / Male INDICATIONS: Central line placement. CLINICAL DATA: This is the patient's subsequent encounter. Patient reports that signs and symptoms h ave been present for 4 - 6 days and indicates a pain score of Nonresponsive. MEDICAL/SURGICAL HISTORY: None. None. COMPARISON: [facility] [place], CHEST 1V SINGLE AP, 11/04/2017. . FINDINGS: A single AP view of the chest demonstrates worsening bilateral patchy airspace disease. Possible smal l right-sided effusion. Interval placement of an endotracheal tube which is appropriately positioned above the delon. Right subclavian central venous catheter with the tip projecting over the central v enous system. No pneumothorax. Nasogastric tube with the tip curled in the gastric fundus CONCLUSION: 1. . Worsening bilateral patchy airspace disease. Probable associated right-sided effusion. 2. Interval placement of a right subclavian central venous catheter, endotracheal and nasogastric tu bes as detailed above. All appear to be appropriately positioned. No pneumothorax. Electronically signed by: Javier Ellis MD 11/05/2017 1:06 AM EDT
[2017-11-05] MEDS: Potassium Chlor 20 mEq Premix 20 MEQ/100 ML PIGGYBACK IV.SIG PRN (01:16)
[2017-11-05] MEDS: fentaNYL 10 mcg/mL Premix Drip 2,500 MCG/250 ML BAG IV.SIG PRN ×2 (01:17→14:27)
[2017-11-05] MEDS: Propofol 1000 mg/100 ml Inj 1,000 MG/100 ML BOTTLE IV.CONT PRN ×3 (01:19→22:41)
[2017-11-05] MEDS: Midazolam 50 MG/50 ML Inj 50 MG/50 ML BAG IV.CONT PRN ×3 (01:20→12:00)
--- NOTE | 2017-11-05 01:20 | P.PCN ---
Date of procedure: 11/05/17 Pre-op diagnosis: Shock Post-op diagnosis: same Procedure: Central line placement A time-out was completed verifying correct patient, procedure, site, positioning , and special equipment if applicable. The patient was placed in a dependent position appropriate for central line placement based on the vein to be cannulated. The patients right shoulder was prepped and draped in sterile fashion. 1% Lidocaine was used to anesthetize the surrounding skin area. A triple lumen 9-Green[place] Cordis catheter was introduced into the the right subclavian vein using the Seldinger technique. The catheter was threaded smoothly over the guide wire and appropriate blood return was obtained. Each lumen of the catheter was evacuated of air and flushed with sterile saline. The catheter was then sutured in place to the skin and a sterile dressing applied. Perfusion to the extremity distal to the point of catheter insertion was checked and found to be adequate. Estimated Blood Loss: 1ml The patient tolerated the procedure well and there were no complications. Anesthesia: local Condition: critical
--- NOTE | 2017-11-05 01:21 | P.PCN ---
Date of procedure: 11/05/17 Pre-op diagnosis: Respiratory failure Post-op diagnosis: same Procedure: Endotracheal Intubation A time-out was completed verifying correct patient, procedure, site, positioning , and special equipment if applicable. The patient was placed in a flat position. Sedation was obtained using Etomidate 20mg. The patient was easily ventilated using an ambu bag. The [employer]/ MAC 4 BLADE was used and inserted into the oropharynx at which time there was a Grade 1 view of the vocal cords. A 8-central african endotracheal tube was inserted and visualized going through the vocal cords. The stylette was removed. Colorimetric change was visualized on the CO2 meter. Breath sounds were heard in both lung watts equally. The endotracheal tube was placed at 23 cm, measured at the teeth. A chest x-ray was ordered to assess for pneumothorax and verify endotrachealtube placement. Estimated Blood Loss: 0 The patient tolerated the procedure well and there were no complications.
[2017-11-05 01:42] LABS: Activated Partial Thrombo Time 28.5 sec (24.3-30.1); INR 1.1 Ratio; Prothrombin Time 11.1 sec (9.8-11.6)
[2017-11-05 01:43] LABS: ABG Base Excess 3.9 mmol/L (-2-2); ABG PCO2 33 mmHg (38-42); ABG PO2 195 mmHg (61-120)
[2017-11-05 01:50] LABS: Hematocrit 26.9 % (39.0-51.0); Hemoglobin 9.4 gm/dL (13.0-17.0)
[2017-11-05 04:49] LABS: Amorphous Sediment,Urine Rare /hpf; Bacteria,Urine Rare /hpf; Bilirubin,Urine Negative (Negative); Clarity,Urine Hazy (Clear); Color,Urine Yellow (Yellw/Straw); Glucose,Urine (UA) Negative (Negative); Hyaline Casts,Urine 1 /lpf (0-3); Leukocyte Esterase,Urine Negative (Negative); Mucus,Urine Few /lpf (Occasional); Nitrite,Urine Negative (Negative); Squamous Epithelial Cell,Urine <1 /hpf (0-5); Urobilinogen,Urine 4 or Greater mg/dL (Less than 2)
[2017-11-05] MEDS: Chlorhexidine Gluconate 2% 1 Pack (2 Cloths) TOPICAL SCH (05:03)
[2017-11-05 05:27] LABS: Hematocrit 27.5 % (39.0-51.0); Hemoglobin 9.6 gm/dL (13.0-17.0); Mean Corpuscular HGB Conc 34.9 % (32.0-36.0); Mean Corpuscular Hemoglobin 28.7 pg (27.0-34.0); Mean Corpuscular Volume 82.4 fL (80.0-100.0); Mean Platelet Volume 11.1 fL (7.0-11.0); Platelet Count 83 th/mm3 (150-450); Red Blood Count 3.34 mil/mm3 (4.50-5.90); Red Cell Distribution Width 12.9 % (11.6-17.2); White Blood Count 9.6 th/mm3 (4.0-11.0)
[2017-11-05 05:35] LABS: Activated Partial Thrombo Time 28.5 sec (24.3-30.1); INR 1.1 Ratio; Prothrombin Time 10.7 sec (9.8-11.6)
[2017-11-05 05:48] LABS: Alanine Aminotransferase 17 U/L (12-78); Albumin 2.4 g/dL (3.4-5.0); Anion Gap 7 meq/L (5-15); Aspartate Aminotransferase 24 U/L (15-37); Blood Urea Nitrogen 23 mg/dL (7-18); Calcium 7.5 mg/dL (8.5-10.1); Carbon Dioxide 29.4 meq/L (21.0-32.0); Chloride 106 meq/L (98-107); Glomerular Filtration Rate 64 mL/min (>89); Glucose,Random 92 mg/dL (74-106); Magnesium 2.9 mg/dL (1.5-2.5); Potassium 3.5 meq/L (3.5-5.1); Sodium 142 meq/L (136-145)
[2017-11-05 05:52] LABS: Alkaline Phosphatase 98 U/L (45-117); Phosphorus 2.8 mg/dL (2.5-4.9); Prealbumin 11 mg/dL (20-40); Total Protein 7.1 g/dL (6.4-8.2)
[2017-11-05] MEDS: Pantoprazole Inj 40 MG Vial IV.PUSH SCH (08:36)
--- NOTE | 2017-11-05 08:43 | P.PNNEU ---
Subjective Subjective Comments: put on vent overnoc for resp disetress Active Medications: Active Medications Albuterol (Duoneb Neb (Prn)) 1 ampul NEB Q2HR NEB PRN PRN Reason: WHEEZING Chlorhexidine Gluconate (Chlorhexidine 2% Cloth) 3 pack TOPICAL DAILY@0400 [facility] Stop: 11/10/17 03:59 Last Admin: 11/05/17 05:03 Dose: 3 pack Chlorhexidine Gluconate (Chlorhexidine 2% Cloth) 3 pack TOPICAL DAILY@0400 PRN PRN Reason: Extra cloth needed Stop: 11/10/17 03:59 Midazolam HCl (Versed Inj) 50 mg in 50 mls @ 2 mls/hr IV.CONT TITRATE PRN; Protocol PRN Reason: Per Protocol Last Admin: 11/05/17 03:45 Dose: 10 mg/hr, 10 mls/hr Fentanyl (Fentanyl 10 Mcg/Ml Premix Drip) 2,500 mcg in 250 mls @ 5 mls/hr IV.SIG TITRATE PRN; Protocol PRN Reason: Per Protocol Last Titration: 11/05/17 03:39 Dose: 150 mcg/hr, 15 mls/hr Propofol (Diprivan 1000 Mg/100 Ml Inj) 1,000 mg in 100 mls @ 2.448 mls/hr IV.CONT TITRATE PRN; Protocol PRN Reason: Per Protocol Last Titration: 11/05/17 01:30 Dose: 30 mcg/kg/min, 14.69 mls/hr Sodium Chloride (Ns Inj) 1,000 mls @ 70 mls/hr IV.CONT .[id number] [facility] Last Admin: 11/04/17 21:19 Dose: 70 mls/hr Magnesium Sulfate Inj 4 gm/ (Sodium Chloride) 100 mls @ 50 mls/hr IV.SIG UNSCH PRN PRN Reason: For Magnesium 0.9 - 1.1 mg/dL Magnesium Sulfate Inj 2 gm/ (Sodium Chloride) 100 mls @ 50 mls/hr IV.SIG UNSCH PRN PRN Reason: For Magnesium 1.2 - 1.6 mg/dL Potassium Chloride (Kcl 40 Meq Premix Inj) 40 meq in 100 mls @ 25 mls/hr IV.SIG Q2H PRN PRN Reason: For Potassium 2.8 - 3.2 mEq/L Potassium Chloride (Kcl 20 Meq Premix Inj) 20 meq in 100 mls @ 50 mls/hr IV.SIG Q2H PRN PRN Reason: For Potassium 3.3 - 3.5 mEq/L Last Infusion: 11/05/17 07:00 Dose: Infused Potassium Chloride (Kcl 40 Meq Premix Inj) 40 meq in 100 mls @ 25 mls/hr IV.SIG UNSCH PRN PRN Reason: For Potassium 3.3 - 3.5 mEq/L Potassium Chloride (Kcl 20 Meq Premix Inj) 20 meq in 100 mls @ 50 mls/hr IV.SIG Q2H PRN PRN Reason: For Potassium 2.8 - 3.2 mEq/L Last Infusion: 11/05/17 07:00 Dose: Infused Potassium Phosphate 30 mmol/ (Sodium Chloride) 260 mls @ 42 mls/hr IV.SIG UNSCH PRN PRN Reason: SEE LABEL COMMENTS Sodium Phosphate 30 mmol/ (Sodium Chloride) 260 mls @ 42 mls/hr IV.SIG UNSCH PRN PRN Reason: For Phosphorus < 2.5 mg/dL Oxacillin Sodium 2 gm/ Sodium (Chloride) 100 mls @ 200 mls/hr IV.SIG Q4H [facility] Last Admin: 11/05/17 08:36 Dose: 200 mls/hr Magnesium Oxide (Mag-Ox) 800 mg PO UNSCH PRN PRN Reason: For Magnesium 1.2 - 1.6 mg/dL Ondansetron HCl (Zofran Odt) 4 mg PO Q6H PRN PRN Reason: NAUSEA OR VOMITING Pantoprazole Sodium (Protonix Inj) 40 mg IV.PUSH DAILY [facility] Last Admin: 11/05/17 08:36 Dose: 40 mg Potassium Bicarb/Potassium Chloride (K-Lyte Cl Eff) 50 meq PO ONCE [facility] Last Admin: 11/04/17 21:31 Dose: 50 meq Potassium Bicarb/Potassium Chloride (K-Lyte Cl Eff) 50 meq PO UNSCH PRN PRN Reason: For Potassium 3.3 - 3.5 mEq/L Potassium Phosphate (K-Phos Original) 2,000 mg PO UNSCH PRN PRN Reason: SEE LABEL COMMENTS Potassium Phosphate (K-Phos Original) 2,000 mg PO Q4H PRN PRN Reason: Phosphorus Less Than 2.5 mg/dL Sodium Chloride (Ns Flush) 2 ml IV.FLUSH BID [facility] Last Admin: 11/05/17 08:37 Dose: 2 ml Sodium Chloride (Ns Flush) 2 ml IV.FLUSH PRN PRN PRN Reason: FLUSH AFTER USING IV ACCESS Allergies/Adverse Reactions: Allergies Allergy/AdvReac Type Severity Reaction Status Date / Time No Known Allergies Allergy Unverified 10/30/17 21:54 Physical Exam Vital signs: Vital Signs 11/04/17 09:41 11/04/17 11:00 11/04/17 12:00 Temperature 98.0 F 98.4 F Pulse Rate 108 H 106 H Respiratory Rate 26 H 28 H Blood Pressure 124/76 124/59 L 125/57 L Pulse Oximetry 94 L 11/04/17 13:00 11/04/17 13:46 11/04/17 13:50 Temperature 98.6 F 98.3 F 98.3 F Pulse Rate 103 H 103 H Respiratory Rate 26 H 27 H Blood Pressure 130/60 130/60 Pulse Oximetry 99 100 11/04/17 13:58 11/04/17 14:00 11/04/17 14:01 Temperature 98.3 F 98.1 F 98.3 F Pulse Rate 101 H 102 H 103 H Respiratory Rate 27 H 27 H 29 H Blood Pressure 124/57 L 128/61 128/61 Pulse Oximetry 97 91 L 98 11/04/17 14:14 11/04/17 14:19 11/04/17 15:00 Temperature 99.5 F 99.0 F 98.0 F Pulse Rate 102 H 10 L 108 H Respiratory Rate 22 30 H 30 H Blood Pressure 129/58 L 127/86 122/56 L Pulse Oximetry 95 98 97 11/04/17 16:00 11/04/17 17:00 11/04/17 18:00 Temperature 97.9 F 98.0 F 97.4 F L Pulse Rate 106 H 104 H 102 H Respiratory Rate 31 H 32 H 30 H Blood Pressure 121/56 L 127/59 L 127/59 L Pulse Oximetry 95 94 L 97 11/04/17 20:00 11/04/17 20:16 11/04/17 21:02 Temperature 99.2 F 98.0 F Pulse Rate 104 H 100 H Respiratory Rate 22 Blood Pressure 134/60 118/57 L Pulse Oximetry 94 L 100 100 11/04/17 21:56 11/04/17 22:02 11/04/17 22:04 Temperature 99.2 F 99.2 F 99.1 F Pulse Rate 103 H 103 H 102 H Respiratory Rate 22 22 24 Blood Pressure 127/58 L 116/57 L 113/56 L Pulse Oximetry 98 96 11/04/17 22:10 11/04/17 22:46 11/04/17 23:02 Temperature 99.1 F 99.1 F 98.9 F Pulse Rate 102 H 103 H 105 H Respiratory Rate 24 25 H Blood Pressure 113/56 L 112/57 L 111/56 L Pulse Oximetry 96 95 93 L 11/05/17 00:00 11/05/17 00:51 11/05/17 04:00 Temperature 99.1 F 99.1 F Pulse Rate 114 H 114 H Respiratory Rate 24 Blood Pressure 147/67 H 147/67 H Pulse Oximetry 87 L 100 87 L 11/05/17 04:37 11/05/17 08:06 Temperature Pulse Rate Respiratory Rate 14 14 Blood Pressure Pulse Oximetry 97 99 Intake & Output 11/04/17 11/05/17 11/05/17 18:59 06:59 18:59 Intake Total 1408 / 1408 2432 / 2432 701 / 701 Output Total 2650 / 2650 600 / 600 Balance -1242 / -1242 1832 / 1832 701 / 701 Weight 81.6 kg Intake: IV 200 / 200 1250 / 1250 701 / 701 Versed Inj 50 mg In 50 ml @ 2 50 / 50 MG/HR 2 mls/hr IV.CONT TITRATE PRN Rx#:[id number] NS Inj 1,000 ML @ 70 mls/hr IV. 1000 / 1000 CONT .[id number] [facility]ONATH[facility] Rx#:[id number] Prostaphlin Inj 2 GM In NS Inj 200 / 200 100 / 100 100 / 100 100 ML @ 200 mls/hr IV.SIG Q4H [facility] Rx#:[id number] KCl 20 mEq Premix Inj 20 meq In 100 / 100 200 / 200 100 ml @ 50 mls/hr IV.SIG Q2H PRN Rx#:[id number] Oral 0 / 0 0 / 0 Intake (Blood Product) Amt 1208 / 1208 1182 / 1182 Liquid Plasma Cp2d Unit 275 / 275 [id number] Plasma Thawed 5 Day Cp2d Unit 339 / 339 [id number] Plasma Thawed 5 Day Cp2d Unit 335 / 335 [id number] Plasma Thawed 5 Day Cp2d Unit 307 / 307 [id number] Plasma Thawed 5 Day Cp2d Unit 307 / 307 [id number] Plasma Thawed 5 Day Cp2d Unit 325 / 325 [id number] Plasma Thawed 5 Day Cp2d Unit 301 / 301 [id number] Plasma Thawed 5 Day Cp2d Unit 201 / 201 [id number] Output: Urine 2650 / 2650 600 / 600 Other: Post Void Residual 1 # Voids 4 1 Weight On Admission 81.6 kg Narrative: pupil pinpoint no clonus fully sedated - Urinary Catheter Management Straight Cath placed during this visit: no Reason for continuing: Not indwelling catheter Objective Laboratory Results - last 24 hr 11/04/17 11/04/17 11/04/17 05:45 11:15 11:15 WBC RBC Hgb Hct MCV MCH MCHC RDW Plt Count MPV ESR 70 H PT INR APTT Puncture Site Patient Temperature O2 Saturation ABG pH ABG pCO2 ABG pO2 ABG HCO3 ABG O2 Content ABG Base Excess ABG Methemoglobin Eliel Test Hemoglobin Carboxyhemoglobin O2 Delivery Device Vent Setting Inspired O2 Critical Value Sodium Potassium Chloride Carbon Dioxide Anion Gap BUN Creatinine Estimated GFR Random Glucose Lactic Acid 1.7 Calcium Phosphorus Magnesium Total Bilirubin Direct Bilirubin Indirect Bilirubin AST ALT Alkaline Phosphatase Total Protein Albumin Prealbumin Triglycerides Cholesterol LDL Cholesterol, Calc HDL Cholesterol Cholesterol/HDL Ratio Vitamin B12 TSH Thyroxine (T4) Urine Color Urine Clarity Urine pH Ur Specific [place] Urine Protein Urine Glucose (UA) Urine Ketones Urine Occult Blood Urine Nitrate Urine Bilirubin Urine Urobilinogen Ur Leukocyte Esterase Urine RBC Urine WBC Ur Squamous Epith Cells Amorphous Sediment Urine Bacteria Hyaline Casts Urine Mucus Micro UA Comment Urine Culture Comments Ur Bath Salts Panel Salicylates Hepatitis A IgM Ab Hep Bs Antigen Hep B Core IgM Ab Hep C IgG Ab Blood Bank Comment 11/04/17 11/04/17 11/04/17 11:15 11:15 11:15 WBC RBC Hgb Hct MCV MCH MCHC RDW Plt Count MPV ESR PT 100.9 H INR 10.1 H* APTT Puncture Site Patient Temperature O2 Saturation ABG pH ABG pCO2 ABG pO2 ABG HCO3 ABG O2 Content ABG Base Excess ABG Methemoglobin Eliel Test Hemoglobin Carboxyhemoglobin O2 Delivery Device Vent Setting Inspired O2 Critical Value Sodium Potassium Chloride Carbon Dioxide Anion Gap BUN Creatinine Estimated GFR Random Glucose Lactic Acid Calcium Phosphorus Magnesium Total Bilirubin 0.5 Direct Bilirubin 0.3 H Indirect Bilirubin 0.2 AST 23 23 ALT 17 Alkaline Phosphatase 123 H Total Protein 6.9 D Albumin 2.1 L Prealbumin Triglycerides Cholesterol LDL Cholesterol, Calc HDL Cholesterol Cholesterol/HDL Ratio Vitamin B12 415 TSH 0.130 L Thyroxine (T4) 5.3 Urine Color Urine Clarity Urine pH Ur Specific [place] Urine Protein Urine Glucose (UA) Urine Ketones Urine Occult Blood Urine Nitrate Urine Bilirubin Urine Urobilinogen Ur Leukocyte Esterase Urine RBC Urine WBC Ur Squamous Epith Cells Amorphous Sediment Urine Bacteria Hyaline Casts Urine Mucus Micro UA Comment Urine Culture Comments Ur Bath Salts Panel Salicylates Hepatitis A IgM Ab Hep Bs Antigen Hep B Core IgM Ab Hep C IgG Ab Blood Bank Comment 11/04/17 11/04/17 11/04/17 11:15 11:15 15:50 WBC RBC Hgb Hct MCV MCH MCHC RDW Plt Count MPV ESR PT INR APTT Puncture Site Patient Temperature O2 Saturation ABG pH ABG pCO2 ABG pO2 ABG HCO3 ABG O2 Content ABG Base Excess ABG Methemoglobin Eliel Test Hemoglobin Carboxyhemoglobin O2 Delivery Device Vent Setting Inspired O2 Critical Value Sodium 137 Potassium 2.9 L* Chloride 102 Carbon Dioxide 26.1 Anion Gap 9 BUN 19 H Creatinine 1.20 Estimated GFR 70 L Random Glucose 91 Lactic Acid Calcium 7.7 L Phosphorus Magnesium Total Bilirubin 0.6 Direct Bilirubin Indirect Bilirubin AST 24 ALT 18 Alkaline Phosphatase 116 Total Protein 7.4 Albumin 2.4 L Prealbumin Triglycerides 190 H Cholesterol 65 L LDL Cholesterol, Calc 20 HDL Cholesterol 7.0 L Cholesterol/HDL Ratio 9.28 Vitamin B12 TSH Thyroxine (T4) Urine Color Urine Clarity Urine pH Ur Specific [place] Urine Protein Urine Glucose (UA) Urine Ketones Urine Occult Blood Urine Nitrate Urine Bilirubin Urine Urobilinogen Ur Leukocyte Esterase Urine RBC Urine WBC Ur Squamous Epith Cells Amorphous Sediment Urine Bacteria Hyaline Casts Urine Mucus Micro UA Comment Urine Culture Comments Ur Bath Salts Panel Salicylates 25.0 H Hepatitis A IgM Ab Hep Bs Antigen Hep B Core IgM Ab Hep C IgG Ab Blood Bank Comment 11/04/17 11/04/17 11/04/17 15:50 19:03 21:00 WBC RBC Hgb Hct MCV MCH MCHC RDW Plt Count MPV ESR PT 20.9 H D INR 2.1 APTT 39.1 H Puncture Site Patient Temperature O2 Saturation ABG pH ABG pCO2 ABG pO2 ABG HCO3 ABG O2 Content ABG Base Excess ABG Methemoglobin Eliel Test Hemoglobin Carboxyhemoglobin O2 Delivery Device Vent Setting Inspired O2 Critical Value Sodium Potassium Chloride Carbon Dioxide Anion Gap BUN Creatinine Estimated GFR Random Glucose Lactic Acid Calcium Phosphorus Magnesium Total Bilirubin Direct Bilirubin Indirect Bilirubin AST ALT Alkaline Phosphatase Total Protein Albumin Prealbumin Triglycerides Cholesterol LDL Cholesterol, Calc HDL Cholesterol Cholesterol/HDL Ratio Vitamin B12 TSH Thyroxine (T4) Urine Color Urine Clarity Urine pH Ur Specific [place] Urine Protein Urine Glucose (UA) Urine Ketones Urine Occult Blood Urine Nitrate Urine Bilirubin Urine Urobilinogen Ur Leukocyte Esterase Urine RBC Urine WBC Ur Squamous Epith Cells Amorphous Sediment Urine Bacteria Hyaline Casts Urine Mucus Micro UA Comment Urine Culture Comments Ur Bath Salts Panel Cancelled Salicylates Hepatitis A IgM Ab Hep Bs Antigen Hep B Core IgM Ab Hep C IgG Ab Blood Bank Comment 11/04/17 11/05/17 11/05/17 21:13 01:11 01:15 WBC RBC Hgb Hct MCV MCH MCHC RDW Plt Count MPV ESR PT 11.1 INR 1.1 APTT 28.5 D Puncture Site Right radial Patient Temperature 98.6 O2 Saturation 98 ABG pH 7.52 H* ABG pCO2 33 L ABG pO2 195 H ABG HCO3 27 H ABG O2 Content 17.9 ABG Base Excess 3.9 H ABG Methemoglobin 0.9 Eliel Test Present Hemoglobin 12.7 Carboxyhemoglobin 0.8 O2 Delivery Device Ventilator Vent Setting Prvc/ac Inspired O2 100 Critical Value Yes Sodium Potassium Chloride Carbon Dioxide Anion Gap BUN Creatinine Estimated GFR Random Glucose Lactic Acid Calcium Phosphorus Magnesium Total Bilirubin Direct Bilirubin Indirect Bilirubin AST ALT Alkaline Phosphatase Total Protein Albumin Prealbumin Triglycerides Cholesterol LDL Cholesterol, Calc HDL Cholesterol Cholesterol/HDL Ratio Vitamin B12 TSH Thyroxine (T4) Urine Color Urine Clarity Urine pH Ur Specific [place] Urine Protein Urine Glucose (UA) Urine Ketones Urine Occult Blood Urine Nitrate Urine Bilirubin Urine Urobilinogen Ur Leukocyte Esterase Urine RBC Urine WBC Ur Squamous Epith Cells Amorphous Sediment Urine Bacteria Hyaline Casts Urine Mucus Micro UA Comment Urine Culture Comments Ur Bath Salts Panel Salicylates Hepatitis A IgM Ab Nonreactive Hep Bs Antigen Nonreactive Hep B Core IgM Ab Nonreactive Hep C IgG Ab Reactive H Blood Bank Comment 11/05/17 11/05/17 11/05/17 01:34 01:34 04:00 WBC 9.6 RBC 3.34 L Hgb 9.4 L D 9.6 L Hct 26.9 L 27.5 L MCV 82.4 MCH 28.7 MCHC 34.9 RDW 12.9 Plt Count 83 L MPV 11.1 H ESR PT INR APTT Puncture Site Patient Temperature O2 Saturation ABG pH ABG pCO2 ABG pO2 ABG HCO3 ABG O2 Content ABG Base Excess ABG Methemoglobin Eliel Test Hemoglobin Carboxyhemoglobin O2 Delivery Device Vent Setting Inspired O2 Critical Value Sodium Potassium Chloride Carbon Dioxide Anion Gap BUN Creatinine Estimated GFR Random Glucose Lactic Acid Calcium Phosphorus Magnesium Total Bilirubin Direct Bilirubin Indirect Bilirubin AST ALT Alkaline Phosphatase Total Protein Albumin Prealbumin Triglycerides Cholesterol LDL Cholesterol, Calc HDL Cholesterol Cholesterol/HDL Ratio Vitamin B12 TSH Thyroxine (T4) Urine Color Yellow Urine Clarity Hazy H Urine pH 5.0 Ur Specific [place] 1.020 Urine Protein 30 H Urine Glucose (UA) Negative Urine Ketones Negative Urine Occult Blood Moderate H Urine Nitrate Negative Urine Bilirubin Negative Urine Urobilinogen 4 or greater Ur Leukocyte Esterase Negative Urine RBC 1 Urine WBC 5 Ur Squamous Epith Cells <1 Amorphous Sediment Rare H Urine Bacteria Rare H Hyaline Casts 1 Urine Mucus Few H Micro UA Comment Cath-culture ind Urine Culture Comments Cath-cult indicated Ur Bath [place] Panel Salicylates Hepatitis A IgM Ab Hep Bs Antigen Hep B Core IgM Ab Hep C IgG Ab Blood Bank Comment 11/05/17 11/05/17 04:00 04:00 WBC RBC Hgb Hct MCV MCH MCHC RDW Plt Count MPV ESR PT 10.7 INR 1.1 APTT 28.5 Puncture Site Patient Temperature O2 Saturation ABG pH ABG pCO2 ABG pO2 ABG HCO3 ABG O2 Content ABG Base Excess ABG Methemoglobin Eliel Test Hemoglobin Carboxyhemoglobin O2 Delivery Device Vent Setting Inspired O2 Critical Value Sodium 142 Potassium 3.5 Chloride 106 Carbon Dioxide 29.4 Anion Gap 7 BUN 23 H Creatinine 1.29 Estimated GFR 64 L Random Glucose 92 Lactic Acid Calcium 7.5 L Phosphorus 2.8 Magnesium 2.9 H Total Bilirubin 0.5 Direct Bilirubin Indirect Bilirubin AST 24 ALT 17 Alkaline Phosphatase 98 Total Protein 7.1 Albumin 2.4 L Prealbumin 11 L Triglycerides Cholesterol LDL Cholesterol, Calc HDL Cholesterol Cholesterol/HDL Ratio Vitamin B12 TSH Thyroxine (T4) Urine Color Urine Clarity Urine pH Ur Specific [place] Urine Protein Urine Glucose (UA) Urine Ketones Urine Occult Blood Urine Nitrate Urine Bilirubin Urine Urobilinogen Ur Leukocyte Esterase Urine RBC Urine WBC Ur Squamous Epith Cells Amorphous Sediment Urine Bacteria Hyaline Casts Urine Mucus Micro UA Comment Urine Culture Comments Ur [place] Panel Salicylates Hepatitis A IgM Ab Hep Bs Antigen Hep B Core IgM Ab Hep C IgG Ab Blood Bank Comment Microbiology 11/04/17 06:40 Aerobic Blood Culture - Preliminary Blood - Peripheral gram positive cocci 11/04/17 06:45 Anaerobic Blood Culture - Preliminary Blood - Peripheral gram positive cocci Review/Management - Review/Management Plan: imp mri mult bilat cva inc large left mca cva recheck ct make sure no mass effect eeg neg likley endocarditis
--- NOTE | 2017-11-05 09:21 | CT ---
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 Please evaluate for mass effect. CLINICAL DATA: This is the patient's subsequent encounter. Patient reports that signs and symptoms h ave been present for 1 day and indicates a pain score of Nonresponsive. MEDICAL/SURGICAL HISTORY: Hypertension. Diabetes. None. RADIATION DOSE: 57.47 CTDI (mGy) COMPARISON: [facility] [place] W/O CONTRAST, 11/04/2017. . TECHNIQUE: CT of the head without contrast. Using automated exposure control and adjustment of the mA and/or kV according to patient size, radiation dose was kept as low as reasonably achievable to ob tain optimal diagnostic quality images. DICOM format image data is available electronically for revi ew and comparison. FINDINGS: Compared to the most recent head CT there is new edema involving the left temporal lobe and area nga uring up to approximately 6.8 x 4.1 cm. There is effacement of the sulci. There is no mass effect on the lateral ventricles which remain within normal limits. There is no midline shift. There is also willis btle low density edema in the right right occipital watershed region best seen on image #18. There is subtle low density edema in the left caudate nucleus the site of small area of restricted diffusion on the MRI. The previously noted apparent subarachnoid hemorrhage seen on the prior CT is no longer d istinctly visualized. There is no new hemorrhage or mass effect. The posterior fossa and brainstem remain unremarkable. The bone windows remain unremarkable. CONCLUSION: 1. New large area of edema in the left middle cerebral artery territory at site of infarction. There is no significant mass effect or midline shift. 2. Cerebellar areas of edema involving the right temporal parietal watershed region as well as the l eft caudate nucleus at site of restricted diffusion seen on MRI. 3. The previously noted apparent subtle subarachnoid hemorrhage over the high parietal convexities i s no longer distinctly visualized. 4. No new hemorrhage. Electronically signed by: Bartolo Yen MD 11/05/2017 9:20 AM EDT
--- NOTE | 2017-11-05 09:40 | P.PNCC ---
Subjective Subjective Remarks/Hospital Course: This is a 31yM who recently presented to the emergency department on 10/30 with subjective fevers and back pain. At that time he was given an MRI of the spine due to his IV drug use and concern for endocarditis. His MRI spine was negative and he was discharged home. Blood cultures that were drawn at that time returned 4 out of 4 bottles with MSSA. Patient was attempted to be contacted at his home to return for medical attention, but he was unable to be contacted. He represents today with acute altered mental status and was found on the floor of his apartment. He is aphasic and has significant right-sided hemiparesis/weakness. CT brain demonstrates a small amount of subarachnoid blood and small areas of decreased density suggestive of acute infarcts. MRI confirms multiple small areas of infarct. I evaluated the patient and he is quite altered and aphasic and no additional information is available from him. I performed bedside critical care ultrasonography which demonstrates a large mobile mass on the aortic valve with associated severe aortic regurgitation. No pericardial effusion. In addition all this, the patient has a new finding of an INR of 9.8 as well as an elevated salicylate level of 28. Given there is recent community history seated to suggest that some of the IV drugs in the area have been contaminated with rapid poison and or Coumadin/warfarin, I have a high degree of suspicion that the patient may have injected contaminated IV drugs. I have contacted poison control who is following along. We have ordered 4 units of FFP emergently to be released to the patient. We have called pharmacy and due to a national shortage of the drug, we do not have any K Centra available. I have also ordered FEIBA as an alternative to K Centra. 11/05: INR has been corrected to normal. Repeat head CT shows no evidence of additional bleed. Noteworthy on head CT is new edema involving most of the temporal lobe on the left side, arising in the area of ischemic infarct. Other smaller defects are noted bilaterally. Blood cultures are growing MSSA, consistent with his IV drug use and aortic valve vegetation. Objective Vital Signs / I&O: Vital Signs 11/04/17 09:41 11/04/17 11:00 11/04/17 12:00 Temperature 98.0 F 98.4 F Pulse Rate 108 H 106 H Respiratory Rate 26 H 28 H Blood Pressure 124/76 124/59 L 125/57 L Pulse Oximetry 94 L 11/04/17 13:00 11/04/17 13:46 11/04/17 13:50 Temperature 98.6 F 98.3 F 98.3 F Pulse Rate 103 H 103 H Respiratory Rate 26 H 27 H Blood Pressure 130/60 130/60 Pulse Oximetry 99 100 11/04/17 13:58 11/04/17 14:00 11/04/17 14:01 Temperature 98.3 F 98.1 F 98.3 F Pulse Rate 101 H 102 H 103 H Respiratory Rate 27 H 27 H 29 H Blood Pressure 124/57 L 128/61 128/61 Pulse Oximetry 97 91 L 98 11/04/17 14:14 11/04/17 14:19 11/04/17 15:00 Temperature 99.5 F 99.0 F 98.0 F Pulse Rate 102 H 10 L 108 H Respiratory Rate 22 30 H 30 H Blood Pressure 129/58 L 127/86 122/56 L Pulse Oximetry 95 98 97 11/04/17 16:00 11/04/17 17:00 11/04/17 18:00 Temperature 97.9 F 98.0 F 97.4 F L Pulse Rate 106 H 104 H 102 H Respiratory Rate 31 H 32 H 30 H Blood Pressure 121/56 L 127/59 L 127/59 L Pulse Oximetry 95 94 L 97 11/04/17 20:00 11/04/17 20:16 11/04/17 21:02 Temperature 99.2 F 98.0 F Pulse Rate 104 H 100 H Respiratory Rate 22 Blood Pressure 134/60 118/57 L Pulse Oximetry 94 L 100 100 11/04/17 21:56 11/04/17 22:02 11/04/17 22:04 Temperature 99.2 F 99.2 F 99.1 F Pulse Rate 103 H 103 H 102 H Respiratory Rate 22 22 24 Blood Pressure 127/58 L 116/57 L 113/56 L Pulse Oximetry 98 96 11/04/17 22:10 11/04/17 22:46 11/04/17 23:02 Temperature 99.1 F 99.1 F 98.9 F Pulse Rate 102 H 103 H 105 H Respiratory Rate 24 25 H Blood Pressure 113/56 L 112/57 L 111/56 L Pulse Oximetry 96 95 93 L 11/05/17 00:00 11/05/17 00:51 11/05/17 04:00 Temperature 99.1 F 99.1 F Pulse Rate 114 H 114 H Respiratory Rate 24 Blood Pressure 147/67 H 147/67 H Pulse Oximetry 87 L 100 87 L 11/05/17 04:37 11/05/17 08:06 Temperature Pulse Rate Respiratory Rate 14 14 Blood Pressure Pulse Oximetry 97 99 Intake & Output 11/04/17 11/05/17 11/05/17 18:59 06:59 18:59 Intake Total 1408 / 1408 2432 / 2432 701 / 701 Output Total 2650 / 2650 600 / 600 Balance -1242 / -1242 1832 / 1832 701 / 701 Weight 81.6 kg Intake: IV 200 / 200 1250 / 1250 701 / 701 Versed Inj 50 mg In 50 ml @ 2 50 / 50 MG/HR 2 mls/hr IV.CONT TITRATE PRN Rx#:[id number] NS Inj 1,000 ML @ 70 mls/hr IV. 1000 / 1000 CONT .[id number] [facility] Rx#:[id number] Prostaphlin Inj 2 GM In NS Inj 200 / 200 100 / 100 100 / 100 100 ML @ 200 mls/hr IV.SIG Q4H [facility] Rx#:[id number] KCl 20 mEq Premix Inj 20 meq In 100 / 100 200 / 200 100 ml @ 50 mls/hr IV.SIG Q2H PRN Rx#:[id number] Oral 0 / 0 0 / 0 Intake (Blood Product) Amt 1208 / 1208 1182 / 1182 Liquid Plasma Cp2d Unit 275 / 275 [id number] Plasma Thawed 5 Day Cp2d Unit 339 / 339 [id number] Plasma Thawed 5 Day Cp2d Unit 335 / 335 [id number] Plasma Thawed 5 Day Cp2d Unit 307 / 307 [id number] Plasma Thawed 5 Day Cp2d Unit 307 / 307 [id number] Plasma Thawed 5 Day Cp2d Unit 325 / 325 [id number] Plasma Thawed 5 Day Cp2d Unit 301 / 301 [id number] Plasma Thawed 5 Day Cp2d Unit 201 / 201 [id number] Output: Urine 2650 / 2650 600 / 600 Other: Post Void Residual 1 # Voids 4 1 Weight On Admission 81.6 kg Result Diagrams: 11/05/17 04:00 11/05/17 04:00 Objective Remarks: - Imaging Impressions Chest X-Ray 11/04/17 05:39 CONCLUSION: 1. Patchy left perihilar and right basilar airspace disease with possible developing right-sided effusion. 2. Lungs are hypoinflated. Head CT 11/04/17 05:39 CONCLUSION: 1. There appear to be new, subcortical white matter infarct posteriorly in the right parietal lobe. 2. There also appears to be some faint subarachnoid hemorrhage over the high parietal convex [place] bilaterally 3. No fractures, Report was called by [ Dr. Ellis to Dr. Sloan in the ED at 0614 hours] Head CTA 11/04/17 05:39 CONCLUSION: 1. Patient is left vertebral dominant. 2. Otherwise, intracranial vessels are all patent without embolic or aneurysmal disease. Neck CTA 11/04/17 05:39 CONCLUSION: 1. Patient is left vertebral dominant. 2. Otherwise, arch and cervical vessels are patent throughout. PE: GENERAL: Young male, intubated and on mechanical ventilation HEENT: Normocephalic. Atraumatic. Pupils 3 mm, equal, round, reactive, conjugate. Mucous membranes are moist NECK: Trachea is midline. Orotracheal route intubation. CHEST: Equal chest rise. Nasal cannula oxygen. Few crackles, no wheezes. CARDIOVASCULAR: Tachycardia, regular rhythm. Sinus. Neck veins are full. ABDOMEN: Soft, nontender, nondistended. No guarding. Bowel sounds sparse. MUSCULOSKELETAL: Pulses dp 2+. No peripheral edema. Multiple linear scars over the bilateral upper and lower extremities consistent with needle fan. Positive [place] lesions. NEUROLOGICAL: RASS -2. Musculoskeletal strength on the right is 1/5 at best in both the upper and lower extremities. Musculoskeletal strength on the left is 5 out of 5. Withdraws left side extremities to noxious stimulation. 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 Patient remains very critically ill. We will need to admit him to the ICU for frequent neuro monitoring, emergent reversal of coagulopathy, and management of his multiorgan system failure. Plan by systems: Neurologic: Acute 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 Acute aphasia Right sided weakness Hemorrhagic Conversion Subarachnoid hemorrhage IV drug abuse - frequent neuro checks - avoid long-acting sedatives - MRI brain - neurosurgery consultation - EEG: no evidence of ictal activity -Worsening edema left temporal lobe on CAT scan. Respiratory: -Required intubation for inability to control airway last night. Cardiovascular: Mixed septic/cardiogenic shock Severe aortic regurgitation Large aortic valve vegetation 1x1.7cm Mild aortic stenosis from vegetation NS @ 50cc/hr Renal: Acute kidney injury - place fontaine - monitor uop - secondary to poor perfusion from cardiac output and severe sepsis -- Strict I/Os FEN/GI: Lactic Acidosis Acute protein calorie malnutrition- severe, temporal muscle wasting Start tube feedings ICU electrolyte protocol mivf trend lactate Heme/ID: Severe coagulopathy: suspected contaminated iv drugs with Rat Poison/Coumadin/ Warfarin Salicylate Poisoning: suspected contaminated IV drugs - recent history is absent for coagulopathy - stat 4 ffp and recheck - vit K 10 SQ - poison control involved - basic UDS +opiates and canabinoids. detailed UDS still pending - there have been reports of contaminated bath salts. in addition to detailed UDS, specific Bath Salts metabolites sent to reference lab. - salicylate levels downtrending. -INR now corrected after Feiba. Endocrine: -- SSI Prophylaxis: GI Prophylaxis protonix DVT Prophylaxis -- SCDs holding pharmacologic DVT prophylaxis due to risks of hemorrhagic conversion Lines: marito fontaine Overall impression: This gentleman is critically ill with systemic sepsis and organ dysfunction. Due to deteriorating status she required intubation and mechanical ventilation last night which will need to be continued. This is clearly bacterial endocarditis involving the [place] aortic valve and associated with embolic brain infarcts. His prognosis is guarded at best. Critical care time 45 minutes aside from procedures.
--- NOTE | 2017-11-05 10:27 | P.PNID ---
Subjective Remarks: Patient is a 31-year-old male, who initially presented to [place] emergency room October 30 complaining of 3 day history of headache. He gave a history of IV drug use. He was not febrile during that visit. WBC was normal. He underwent CT of the brain which was negative. Also underwent MRI of the thoracic and lumbar spine which were both negative for any infection. 2 blood cultures were done at that time and he was discharged. He came back to the hospital after his friends found him on the kitchen floor. He was reportedly unable to move his right side. And he was also noted to have some difficulty speaking. He remains afebrile. His white count is elevated. His CT of the head is now showing some findings in the right parietal area, as well as faint subarachnoid hemorrhage. CTA of the neck is negative. He has evidence of right-sided weakness, as well as expressive aphasia. The 2 blood cultures done on his ED visit is now reported as growing MSSA. Infectious disease consultation has been requested to evaluate the patient. Notes reviewed D/W RN Intubated early AM for increased respiratory distress MRI head, with multiple areas of infarct CT head repeat, with edema in temporal lobe BC with MSSA Temps ok BP ok Sedated on the vent CXR with increased infiltrates Antibiotics: Oxacillin Lines: R central line Past Medical History: Diabetes Hypertension IVDU Allergies/Adverse Reactions: Allergies No Known Allergies Allergy (Unverified 10/30/17 21:54) Objective Vital Signs 11/04/17 11:00 11/04/17 12:00 11/04/17 13:00 Temperature 98.0 F 98.4 F 98.6 F Pulse Rate 108 H 106 H Respiratory Rate 26 H 28 H Blood Pressure 124/59 L 125/57 L Pulse Oximetry 94 L 11/04/17 13:46 11/04/17 13:50 11/04/17 13:58 Temperature 98.3 F 98.3 F 98.3 F Pulse Rate 103 H 103 H 101 H Respiratory Rate 26 H 27 H 27 H Blood Pressure 130/60 130/60 124/57 L Pulse Oximetry 99 100 97 11/04/17 14:00 11/04/17 14:01 11/04/17 14:14 Temperature 98.1 F 98.3 F 99.5 F Pulse Rate 102 H 103 H 102 H Respiratory Rate 27 H 29 H 22 Blood Pressure 128/61 128/61 129/58 L Pulse Oximetry 91 L 98 95 11/04/17 14:19 11/04/17 15:00 11/04/17 16:00 Temperature 99.0 F 98.0 F 97.9 F Pulse Rate 10 L 108 H 106 H Respiratory Rate 30 H 30 H 31 H Blood Pressure 127/86 122/56 L 121/56 L Pulse Oximetry 98 97 95 11/04/17 17:00 11/04/17 18:00 11/04/17 20:00 Temperature 98.0 F 97.4 F L 99.2 F Pulse Rate 104 H 102 H 104 H Respiratory Rate 32 H 30 H Blood Pressure 127/59 L 127/59 L 134/60 Pulse Oximetry 94 L 97 94 L 11/04/17 20:16 11/04/17 21:02 11/04/17 21:56 Temperature 98.0 F 99.2 F Pulse Rate 100 H 103 H Respiratory Rate 22 22 Blood Pressure 118/57 L 127/58 L Pulse Oximetry 100 100 98 11/04/17 22:02 11/04/17 22:04 11/04/17 22:10 Temperature 99.2 F 99.1 F 99.1 F Pulse Rate 103 H 102 H 102 H Respiratory Rate 22 24 24 Blood Pressure 116/57 L 113/56 L 113/56 L Pulse Oximetry 96 96 11/04/17 22:46 11/04/17 23:02 11/05/17 00:00 Temperature 99.1 F 98.9 F 99.1 F Pulse Rate 103 H 105 H 114 H Respiratory Rate 25 H Blood Pressure 112/57 L 111/56 L 147/67 H Pulse Oximetry 95 93 L 87 L 11/05/17 00:51 11/05/17 04:00 11/05/17 04:37 Temperature 99.1 F Pulse Rate 114 H Respiratory Rate 24 14 Blood Pressure 147/67 H Pulse Oximetry 100 87 L 97 11/05/17 08:06 Temperature Pulse Rate Respiratory Rate 14 Blood Pressure Pulse Oximetry 99 Intake & Output 11/04/17 11/05/17 11/05/17 18:59 06:59 18:59 Intake Total 1408 / 1408 2432 / 2432 701 / 701 Output Total 2650 / 2650 600 / 600 Balance -1242 / -1242 1832 / 1832 701 / 701 Weight 81.6 kg Intake: IV 200 / 200 1250 / 1250 701 / 701 Versed Inj 50 mg In 50 ml @ 2 50 / 50 MG/HR 2 mls/hr IV.CONT TITRATE PRN Rx#:[id number] NS Inj 1,000 ML @ 70 mls/hr IV. 1000 / 1000 CONT .[id number] [facility] Rx#:[id number] Prostaphlin Inj 2 GM In NS Inj 200 / 200 100 / 100 100 / 100 100 ML @ 200 mls/hr IV.SIG Q4H [facility] Rx#:[id number] KCl 20 mEq Premix Inj 20 meq In 100 / 100 200 / 200 100 ml @ 50 mls/hr IV.SIG Q2H PRN Rx#:[id number] Oral 0 / 0 0 / 0 Intake (Blood Product) Amt 1208 / 1208 1182 / 1182 Liquid Plasma Cp2d Unit 275 / 275 [id number] Plasma Thawed 5 Day Cp2d Unit 339 / 339 [id number] Plasma Thawed 5 Day Cp2d Unit 335 / 335 [id number] Plasma Thawed 5 Day Cp2d Unit 307 / 307 [id number] Plasma Thawed 5 Day Cp2d Unit 307 / 307 [id number] Plasma Thawed 5 Day Cp2d Unit 325 / 325 [id number] Plasma Thawed 5 Day Cp2d Unit 301 / 301 [id number] Plasma Thawed 5 Day Cp2d Unit 201 / 201 [id number] Output: Urine 2650 / 2650 600 / 600 Other: Post Void Residual 1 # Voids 4 1 Weight On Admission 81.6 kg 11/04/17 06:45 Blood - Peripheral Aerobic Blood Culture - Pending 11/04/17 06:45 Blood - Peripheral Anaerobic Blood Culture - Preliminary Staphylococcus aureus 11/04/17 06:40 Blood - Peripheral Aerobic Blood Culture - Preliminary Staphylococcus aureus 11/04/17 06:40 Blood - Peripheral Anaerobic Blood Culture - Pending 11/05/17 04:22 Blood - Peripheral Aerobic Blood Culture - Pending 11/05/17 04:22 Blood - Peripheral Anaerobic Blood Culture - Pending 11/05/17 01:34 Catheterized Urine Urine Culture - Pending Lab - Hematology Results 11/04/17 11/04/17 11/04/17 05:45 05:45 05:45 WBC 16.0 H RBC 4.47 L Hgb 12.6 L POC Hgb (Calc) 12.6 L Hct 36.4 L POC Hct 37.0 L MCV 81.5 MCH 28.3 MCHC 34.7 RDW 12.9 Plt Count 112 L MPV 10.7 Prelim Diff (Auto) Slide review pending Neut % (Auto) 91.4 H Lymph % (Auto) 3.2 L Dickenson % (Auto) 4.8 Eos % (Auto) 0.4 Baso % (Auto) 0.2 Neut # (Auto) 14.6 H Lymph # (Auto) 0.5 L [place] # (Auto) 0.8 Eos # (Auto) 0.1 Baso # (Auto) 0.0 WBC Differential Manual diff final Seg Neuts % (Manual) 79 H Band Neuts % (Manual) 8 H Lymphocytes % (Manual) 5 L Monocytes % (Manual) 6 Metamyelocytes % (Man) 2 H Abs Neuts (Manual) 14.2 H Nucleated RBCs/100 WBC 1 H Differential Comment . Toxic Granulation 1+ H Toxic Vacuolation Present H Platelet Estimate Low L Platelet Morphology Normal RBC Morphology Normal ESR 70 H 11/05/17 11/05/17 01:34 04:00 WBC 9.6 RBC 3.34 L Hgb 9.4 L D 9.6 L POC Hgb (Calc) Hct 26.9 L 27.5 L POC Hct MCV 82.4 MCH 28.7 MCHC 34.9 RDW 12.9 Plt Count 83 L MPV 11.1 H Prelim Diff (Auto) Neut % (Auto) Lymph % (Auto) Dickenson % (Auto) Eos % (Auto) Baso % (Auto) Neut # (Auto) Lymph # (Auto) [place]enson # (Auto) Eos # (Auto) Baso # (Auto) WBC Differential Seg Neuts % (Manual) Band Neuts % (Manual) Lymphocytes % (Manual) Monocytes % (Manual) Metamyelocytes % (Man) Abs Neuts (Manual) Nucleated RBCs/100 WBC Differential Comment Toxic Granulation Toxic Vacuolation Platelet Estimate Platelet Morphology RBC Morphology ESR Lab - Chemistry Results 11/04/17 11/04/17 11/04/17 05:45 06:45 11:15 POC Sodium 132 L Sodium POC Potassium 2.9 L* Potassium POC Chloride 94 L Chloride Carbon Dioxide Anion Gap POC BUN 21 BUN Creatinine POC Creatinine 1.3 Estimated GFR POC Glucose 108 Random Glucose Lactic Acid 2.3 H 1.7 Calcium Phosphorus Magnesium Total Bilirubin Direct Bilirubin Indirect Bilirubin AST ALT Alkaline Phosphatase Total Creatine Kinase 52 Troponin I 0.48 H Total Protein Albumin Prealbumin Triglycerides Cholesterol LDL Cholesterol, Calc HDL Cholesterol Cholesterol/HDL Ratio Vitamin B12 TSH Thyroxine (T4) 11/04/17 11/04/17 11/04/17 11:15 11:15 11:15 POC Sodium Sodium POC Potassium Potassium POC Chloride Chloride Carbon Dioxide Anion Gap POC BUN BUN Creatinine POC Creatinine Estimated GFR POC Glucose Random Glucose Lactic Acid Calcium Phosphorus Magnesium Total Bilirubin 0.5 Direct Bilirubin 0.3 H Indirect Bilirubin 0.2 AST 23 23 ALT 17 Alkaline Phosphatase 123 H Total Creatine Kinase Troponin I Total Protein 6.9 D Albumin 2.1 L Prealbumin Triglycerides 190 H Cholesterol 65 L LDL Cholesterol, Calc 20 HDL Cholesterol 7.0 L Cholesterol/HDL Ratio 9.28 Vitamin B12 415 TSH 0.130 L Thyroxine (T4) 5.3 11/04/17 11/05/17 15:50 04:00 POC Sodium Sodium 137 142 POC Potassium Potassium 2.9 L* 3.5 POC Chloride Chloride 102 106 Carbon Dioxide 26.1 29.4 Anion Gap 9 7 POC BUN BUN 19 H 23 H Creatinine 1.20 1.29 POC Creatinine Estimated GFR 70 L 64 L POC Glucose Random Glucose 91 92 Lactic Acid Calcium 7.7 L 7.5 L Phosphorus 2.8 Magnesium 2.9 H Total Bilirubin 0.6 0.5 Direct Bilirubin Indirect Bilirubin AST 24 24 ALT 18 17 Alkaline Phosphatase 116 98 Total Creatine Kinase Troponin I Total Protein 7.4 7.1 Albumin 2.4 L 2.4 L Prealbumin 11 L Triglycerides Cholesterol LDL Cholesterol, Calc HDL Cholesterol Cholesterol/HDL Ratio Vitamin B12 TSH Thyroxine (T4) Imaging: ITS Impressions Head CTA 11/04/17 05:39 CONCLUSION: 1. Patient is left vertebral dominant. 2. Otherwise, intracranial vessels are all patent without embolic or aneurysmal disease. Neck CTA 11/04/17 05:39 CONCLUSION: 1. Patient is left vertebral dominant. 2. Otherwise, arch and cervical vessels are patent throughout. Head MRI 11/04/17 06:36 CONCLUSION: 1. Acute infarcts as described above suggesting embolic occlusion as described above. Largest areas in the left posterior [place] region. Chest X-Ray 11/05/17 00:32 CONCLUSION: 1. . Worsening bilateral patchy airspace disease. Probable associated right- sided effusion. 2. Interval placement of a right subclavian central venous catheter, endotracheal and nasogastric tubes as detailed above. All appear to be appropriately positioned. No pneumothorax. Head CT 11/05/17 08:43 CONCLUSION: 1. New large area of edema in the left middle cerebral artery territory at site of infarction. There is no significant mass effect or midline shift. 2. Cerebellar areas of edema involving the right temporal parietal watershed region as well as the left caudate nucleus at site of restricted diffusion seen on MRI. 3. The previously noted apparent subtle subarachnoid hemorrhage over the high parietal convexities is no longer distinctly visualized. 4. No new hemorrhage. Physical Exam: GENERAL: Patient is a well-nourished, well-developed male, sedated on the vent, NAD SKIN: Warm and dry. Has red embolic lesions in BLE. Has Embolic lesions on L hand HEAD: Atraumatic. Normocephalic. No temporal wasting, or tenderness. EYES: [place] conjunctiva. Has petechia on L conjunctiva. Pupils equal, round and reactive to light. Extraocular movements full and intact. No scleral icterus. No injection or drainage. EARS, NOSE AND THROAT: Nose without bleeding or purulent nasal discharge. No sinus tenderness. Mucous membranes pink and moist. NECK: Trachea midline. Supple and not tender, no meningeal signs CARDIOVASCULAR: Regular rate and rhythm. RESPIRATORY: Clear to auscultation. Breath sounds equal bilaterally. No rales , wheezing or rhonchi ABDOMEN: Soft, nondistended. Bowel sounds present and normoactive. No reaction to palpation. EXTREMITIES: No clubbing, cyanosis, or edema. No joint effusion. NEUROLOGICAL: Sedated on the vent PSYCHIATRIC: Unable to assess LINE: No evidence of infection Assessment and Plan - Plan Impression MSSA sepsis L sided endocarditis, due to IVDU CVA with R sided weakness, aphasia, due to embolic event from his IE IVDU Respiratory failure, has bilateral infiltrates Recommendation Follow blood C/S to document clearing Await Echo IV Oxacillin Check sputum C/S Add Levaquin Follow results of work-up Monitor progress D/W HAN
[2017-11-05] MEDS: Sod Chloride 0.9% Inj 1,000 ML IV.CONT SCH (11:58)
--- NOTE | 2017-11-05 12:39 | P.DIET ---
Nutritional Evaluation Type of nutrition evaluation: initial Nutrition consult regarding: Tube Feeding Objective - Diagnosis Sepsis, Stroke Symptoms, r/o septic emboli of the brain - Objective % IBW: 126 (IBW = 142#) Body Weight Used for Calculations: Actual (81.6 kg) Energy Needs - Lower Range (kCal/kg): 25 Energy Needs - Upper Range (kCal/kg): 30 Lower Limit kCal/kg (kCals): 2,040 Lower Limit Protein Factor (Grams per Kg): 1.2 Upper Limit Protein Factor (Grams per Kg): 1.6 Lower Protein Needs (Protein): 98 Upper Protein Needs (Protein): 131 Dietitian Reviewed in Medical Record: Curent medications, Intake & Output, Labs , Tube feeding Objective Comments: Med hx includes IVDU, DM, HTN Assessment Assessment: Pt is critically ill, vented/sedated and needs TFing to meet nutritional needs. Current order is for Glucerna 1.5 @ 55 mls/hr goal. To better meet needs, recommend goal rate of 60 mls/hr to provide 2160 kcals, 119 gms protein and 1093 mls of free water. Some additional kcals will be provided by propofol (1.1 kcal/ml). Recommendations: Glucerna 1.5 @ 60 mls/hr goal Dietitian to Monitor: Lab values, Glucose level, Intake & Output, Tube feeding tolerance, Weight change, Medical course
[2017-11-05] MEDS: Acetaminophen 325 MG Tablet PO PRN (21:31)
[2017-11-06 04:22] LABS: INR 1.1 Ratio
[2017-11-06] MEDS: Chlorhexidine Gluconate 2% 1 Pack (2 Cloths) TOPICAL PRN (04:37)
[2017-11-06] MEDS: Chlorhexidine Gluconate 2% 1 Pack (2 Cloths) TOPICAL SCH (04:37)
[2017-11-06 04:45] LABS: Alanine Aminotransferase 18 U/L (12-78); Albumin 2.1 g/dL (3.4-5.0); Alkaline Phosphatase 103 U/L (45-117); Anion Gap 7 meq/L (5-15); Aspartate Aminotransferase 32 U/L (15-37); Blood Urea Nitrogen 24 mg/dL (7-18); Calcium 7.6 mg/dL (8.5-10.1); Carbon Dioxide 27.7 meq/L (21.0-32.0); Chloride 111 meq/L (98-107); Glomerular Filtration Rate 80 mL/min (>89); Glucose,Random 116 mg/dL (74-106); Magnesium 2.8 mg/dL (1.5-2.5); Phosphorus 4.6 mg/dL (2.5-4.9); Potassium 3.8 meq/L (3.5-5.1); Sodium 146 meq/L (136-145); Total Protein 7.4 g/dL (6.4-8.2)
[2017-11-06 04:53] LABS: Hematocrit 30.1 % (39.0-51.0); Hemoglobin 10.2 gm/dL (13.0-17.0); Mean Corpuscular HGB Conc 33.8 % (32.0-36.0); Mean Corpuscular Hemoglobin 28.3 pg (27.0-34.0); Mean Corpuscular Volume 83.6 fL (80.0-100.0); Platelet Count 113 th/mm3 (150-450); Red Cell Distribution Width 13.1 % (11.6-17.2); White Blood Count 9.7 th/mm3 (4.0-11.0)
--- NOTE | 2017-11-06 07:58 | P.PNNEU ---
Subjective Subjective Comments: sr Active Medications: Active Medications Acetaminophen (Tylenol) 650 mg PO Q6H PRN PRN Reason: TEMPERATURE > 101 F Last Admin: 11/05/17 21:31 Dose: 650 mg Albuterol (Duoneb Neb (Prn)) 1 ampul NEB Q2HR NEB PRN PRN Reason: WHEEZING Chlorhexidine Gluconate (Chlorhexidine 2% Cloth) 3 pack TOPICAL DAILY@0400 JONATHON Stop: 11/10/17 03:59 Last Admin: 11/06/17 04:37 Dose: 3 pack Chlorhexidine Gluconate (Chlorhexidine 2% Cloth) 3 pack TOPICAL DAILY@0400 PRN PRN Reason: Extra cloth needed Stop: 11/10/17 03:59 Last Admin: 11/06/17 04:37 Dose: 3 pack Midazolam HCl (Versed Inj) 50 mg in 50 mls @ 2 mls/hr IV.CONT TITRATE PRN; Protocol PRN Reason: Per Protocol Last Titration: 11/05/17 15:30 Dose: 0 mg/hr, 0 mls/hr Fentanyl (Fentanyl 10 Mcg/Ml Premix Drip) 2,500 mcg in 250 mls @ 5 mls/hr IV.SIG TITRATE PRN; Protocol PRN Reason: Per Protocol Last Titration: 11/05/17 20:01 Dose: 100 mcg/hr, 10 mls/hr Propofol (Diprivan 1000 Mg/100 Ml Inj) 1,000 mg in 100 mls @ 2.448 mls/hr IV.CONT TITRATE PRN; Protocol PRN Reason: Per Protocol Last Admin: 11/05/17 22:41 Dose: 10 mcg/kg/min, 4.9 mls/hr Levofloxacin/Dextrose (Levaquin 750 Mg Premix Inj) 150 mls @ 100 mls/hr IV.SIG Q24H [facility] Last Infusion: 11/05/17 13:31 Dose: Infused Sodium Chloride (Ns Inj) 1,000 mls @ 70 mls/hr IV.CONT .[id number] [facility] Last Admin: 11/05/17 11:58 Dose: 70 mls/hr Magnesium Sulfate Inj 4 gm/ (Sodium Chloride) 100 mls @ 50 mls/hr IV.SIG UNSCH PRN PRN Reason: For Magnesium 0.9 - 1.1 mg/dL Magnesium Sulfate Inj 2 gm/ (Sodium Chloride) 100 mls @ 50 mls/hr IV.SIG UNSCH PRN PRN Reason: For Magnesium 1.2 - 1.6 mg/dL Potassium Chloride (Kcl 40 Meq Premix Inj) 40 meq in 100 mls @ 25 mls/hr IV.SIG Q2H PRN PRN Reason: For Potassium 2.8 - 3.2 mEq/L Potassium Chloride (Kcl 20 Meq Premix Inj) 20 meq in 100 mls @ 50 mls/hr IV.SIG Q2H PRN PRN Reason: For Potassium 3.3 - 3.5 mEq/L Last Infusion: 11/05/17 07:00 Dose: Infused Potassium Chloride (Kcl 40 Meq Premix Inj) 40 meq in 100 mls @ 25 mls/hr IV.SIG UNSCH PRN PRN Reason: For Potassium 3.3 - 3.5 mEq/L Last Infusion: 11/06/17 02:06 Dose: Infused Potassium Chloride (Kcl 20 Meq Premix Inj) 20 meq in 100 mls @ 50 mls/hr IV.SIG Q2H PRN PRN Reason: For Potassium 2.8 - 3.2 mEq/L Last Infusion: 11/05/17 07:00 Dose: Infused Potassium Phosphate 30 mmol/ (Sodium Chloride) 260 mls @ 42 mls/hr IV.SIG UNSCH PRN PRN Reason: SEE LABEL COMMENTS Sodium Phosphate 30 mmol/ (Sodium Chloride) 260 mls @ 42 mls/hr IV.SIG UNSCH PRN PRN Reason: For Phosphorus < 2.5 mg/dL Oxacillin Sodium 2 gm/ Sodium (Chloride) 100 mls @ 200 mls/hr IV.SIG Q4H JONATHON Last Infusion: 11/06/17 05:07 Dose: Infused Magnesium Oxide (Mag-Ox) 800 mg PO UNSCH PRN PRN Reason: For Magnesium 1.2 - 1.6 mg/dL Ondansetron HCl (Zofran Odt) 4 mg PO Q6H PRN PRN Reason: NAUSEA OR VOMITING Pantoprazole Sodium (Protonix Inj) 40 mg IV.PUSH DAILY JONATHON Last Admin: 11/05/17 08:36 Dose: 40 mg Potassium Bicarb/Potassium Chloride (K-Lyte Cl Eff) 50 meq PO ONCE JONATHON Last Admin: 11/04/17 21:31 Dose: 50 meq Potassium Bicarb/Potassium Chloride (K-Lyte Cl Eff) 50 meq PO UNSCH PRN PRN Reason: For Potassium 3.3 - 3.5 mEq/L Potassium Phosphate (K-Phos Original) 2,000 mg PO UNSCH PRN PRN Reason: SEE LABEL COMMENTS Potassium Phosphate (K-Phos Original) 2,000 mg PO Q4H PRN PRN Reason: Phosphorus Less Than 2.5 mg/dL Sodium Chloride (Ns Flush) 2 ml IV.FLUSH BID JONATHON Last Admin: 11/05/17 20:01 Dose: 2 ml Sodium Chloride (Ns Flush) 2 ml IV.FLUSH PRN PRN PRN Reason: FLUSH AFTER USING IV ACCESS Allergies/Adverse Reactions: Allergies Allergy/AdvReac Type Severity Reaction Status Date / Time No Known Allergies Allergy Unverified 10/30/17 21:54 Physical Exam Vital signs: Vital Signs 11/05/17 08:00 11/05/17 08:06 11/05/17 09:00 Temperature 98.2 F Pulse Rate 80 76 Respiratory Rate 14 14 Blood Pressure 101/55 L Pulse Oximetry 99 99 11/05/17 11:11 11/05/17 12:00 11/05/17 15:47 Temperature 97.8 F Pulse Rate 79 Respiratory Rate 14 14 15 Blood Pressure 111/56 L Pulse Oximetry 99 100 11/05/17 16:00 11/05/17 19:59 11/05/17 20:00 Temperature 98.1 F 102.2 F H Pulse Rate 88 96 H Respiratory Rate 15 21 18 Blood Pressure 118/58 L 132/56 L Pulse Oximetry 100 96 96 11/06/17 00:00 11/06/17 03:28 11/06/17 04:00 Temperature 100.4 F H 99.5 F Pulse Rate 92 H 90 Respiratory Rate 17 17 17 Blood Pressure 128/58 L 127/57 L Pulse Oximetry 98 98 99 Intake & Output 11/05/17 11/06/17 11/06/17 18:59 06:59 18:59 Intake Total 2742 / 2742 986 / 986 Output Total 700 / 700 850 / 850 Balance 2041 / 2041 136 / 136 Weight 82.7 kg Intake: IV 2551 / 2551 500 / 500 Versed Inj 50 mg In 50 ml @ 2 50 / 50 MG/HR 2 mls/hr IV.CONT TITRATE PRN Rx#:[id number] Diprivan 1000 mg/100 ml Inj 1, 100 / 100 100 / 100 000 mg In 100 ml @ 5 MCG/KG/MIN 2.448 mls/hr IV.CONT TITRATE PRN Rx#:[id number] NS Inj 1,000 ML @ 70 mls/hr IV. 1000 / 1000 CONT .[id number] JONATHON Rx#:[id number] Levaquin 750 mg Premix Inj 150 150 / 150 ML @ 100 mls/hr IV.SIG Q24H JONATHON Rx#:[id number] Prostaphlin Inj 2 GM In NS Inj 400 / 400 300 / 300 100 ML @ 200 mls/hr IV.SIG Q4H JONATHON Rx#:[id number] KCl 20 mEq Premix Inj 20 meq In 200 / 200 100 ml @ 50 mls/hr IV.SIG Q2H PRN Rx#:[id number] KCl 40 mEq Premix Inj 40 meq In 100 / 100 100 ml @ 25 mls/hr IV.SIG UNSCH PRN Rx#:[id number] fentaNYL 10 mcg/mL Premix Drip 250 / 250 2,500 mcg In 250 ml @ 50 MCG/HR 5 mls/hr IV.SIG TITRATE PRN Rx #:[id number] Tube Feeding 191 / 191 486 / 486 Output: Urine Amount (Catheter) 700 / 700 850 / 850 Straight 700 / 700 850 / 850 Other: Date of Last Bowel Movement 11/05/17 # Bowel Movements 0 0 Narrative: pupil = acc to nurse some left movement on sedation vacation last pm now sedated - Urinary Catheter Management Straight Cath placed during this visit: no Reason for continuing: Not indwelling catheter Objective Laboratory Results - last 24 hr 11/05/17 11/05/17 11/06/17 12:09 19:45 03:40 WBC 9.7 RBC 3.60 L Hgb 10.2 L Hct 30.1 L MCV 83.6 MCH 28.3 MCHC 33.8 RDW 13.1 Plt Count 113 L D MPV 11.0 PT INR Sodium Potassium 3.4 L Chloride Carbon Dioxide Anion Gap BUN Creatinine Estimated GFR Random Glucose Calcium Phosphorus Magnesium Total Bilirubin AST ALT Alkaline Phosphatase Total Protein Albumin Nasal Screen MRSA (PCR) Not detected 11/06/17 11/06/17 03:40 03:40 WBC RBC Hgb Hct MCV MCH MCHC RDW Plt Count MPV PT 11.0 INR 1.1 Sodium 146 H Potassium 3.8 Chloride 111 H Carbon Dioxide 27.7 Anion Gap 7 BUN 24 H Creatinine 1.06 Estimated GFR 80 L Random Glucose 116 H Calcium 7.6 L Phosphorus 4.6 D Magnesium 2.8 H Total Bilirubin 0.6 AST 32 ALT 18 Alkaline Phosphatase 103 Total Protein 7.4 Albumin 2.1 L Nasal Screen MRSA (PCR) Microbiology 11/05/17 04:22 Aerobic Blood Culture - Preliminary Blood - Peripheral gram positive cocci 11/04/17 06:40 Aerobic Blood Culture - Preliminary Blood - Peripheral Staphylococcus aureus Anaerobic Blood Culture - Preliminary gram positive cocci 11/04/17 06:45 Aerobic Blood Culture - Preliminary Blood - Peripheral gram positive cocci Anaerobic Blood Culture - Preliminary Staphylococcus aureus Review/Management - Review/Management Plan: imp mri mult bilat cva inc large left mca cva recheck ct make sure no mass effect yest large but no mass effect recheck today eeg neg aortic valve endocarditis
--- NOTE | 2017-11-06 08:05 | P.PNCC ---
Subjective Subjective Remarks/Hospital Course: This is a 31yM who recently presented to the emergency department on 10/30 with subjective fevers and back pain. At that time he was given an MRI of the spine due to his IV drug use and concern for endocarditis. His MRI spine was negative and he was discharged home. Blood cultures that were drawn at that time returned 4 out of 4 bottles with MSSA. Patient was attempted to be contacted at his home to return for medical attention, but he was unable to be contacted. He represents today with acute altered mental status and was found on the floor of his apartment. He is aphasic and has significant right-sided hemiparesis/weakness. CT brain demonstrates a small amount of subarachnoid blood and small areas of decreased density suggestive of acute infarcts. MRI confirms multiple small areas of infarct. I evaluated the patient and he is quite altered and aphasic and no additional information is available from him. I performed bedside critical care ultrasonography which demonstrates a large mobile mass on the aortic valve with associated severe aortic regurgitation. No pericardial effusion. In addition all this, the patient has a new finding of an INR of 9.8 as well as an elevated salicylate level of 28. Given there is recent community history seated to suggest that some of the IV drugs in the area have been contaminated with rapid poison and or Coumadin/warfarin, I have a high degree of suspicion that the patient may have injected contaminated IV drugs. I have contacted poison control who is following along. We have ordered 4 units of FFP emergently to be released to the patient. We have called pharmacy and due to a national shortage of the drug, we do not have any K [facility]ra available. I have also ordered FEIBA as an alternative to K Centra. 11/05: INR has been corrected to normal. Repeat head CT shows no evidence of additional bleed. Noteworthy on head CT is new edema involving most of the temporal lobe on the left side, arising in the area of ischemic infarct. Other smaller defects are noted bilaterally. Blood cultures are growing MSSA, consistent with his IV drug use and aortic valve vegetation. Bilateral lung infiltrates noted on today's chest x-ray consistent with prehospital aspiration. 11/06: Tolerating spontaneous breathing trial with acceptable pressure support but oxygenation markedly impaired due to prehospital aspiration pneumonitis. No change in neurologic status. Cultures continued to be positive for staph aureus. Objective Vital Signs / I&O: Vital Signs 11/05/17 08:06 11/05/17 09:00 11/05/17 11:11 Temperature Pulse Rate 76 Respiratory Rate 14 14 Blood Pressure Pulse Oximetry 99 99 11/05/17 12:00 11/05/17 15:47 11/05/17 16:00 Temperature 97.8 F 98.1 F Pulse Rate 79 88 Respiratory Rate 14 15 15 Blood Pressure 111/56 L 118/58 L Pulse Oximetry 100 100 11/05/17 19:59 11/05/17 20:00 11/06/17 00:00 Temperature 102.2 F H 100.4 F H Pulse Rate 96 H 92 H Respiratory Rate 21 18 17 Blood Pressure 132/56 L 128/58 L Pulse Oximetry 96 96 98 11/06/17 03:28 11/06/17 04:00 Temperature 99.5 F Pulse Rate 90 Respiratory Rate 17 17 Blood Pressure 127/57 L Pulse Oximetry 98 99 Intake & Output 11/05/17 11/06/17 11/06/17 18:59 06:59 18:59 Intake Total 2742 / 2742 986 / 986 Output Total 700 / 700 850 / 850 Balance 2042 / 2042 136 / 136 Weight 82.7 kg Intake: IV 2551 / 2551 500 / 500 Versed Inj 50 mg In 50 ml @ 2 50 / 50 MG/HR 2 mls/hr IV.CONT TITRATE PRN Rx#:[id number] Diprivan 1000 mg/100 ml Inj 1, 100 / 100 100 / 100 000 mg In 100 ml @ 5 MCG/KG/MIN 2.448 mls/hr IV.CONT TITRATE PRN Rx#:[id number] NS Inj 1,000 ML @ 70 mls/hr IV. 1000 / 1000 CONT .[id number] JONATHON Rx#:[id number] Levaquin 750 mg Premix Inj 150 150 / 150 ML @ 100 mls/hr IV.SIG Q24H JONATHON Rx#:[id number] Prostaphlin Inj 2 GM In NS Inj 400 / 400 300 / 300 100 ML @ 200 mls/hr IV.SIG Q4H JONATHON Rx#:[id number] KCl 20 mEq Premix Inj 20 meq In 200 / 200 100 ml @ 50 mls/hr IV.SIG Q2H PRN Rx#:[id number] KCl 40 mEq Premix Inj 40 meq In 100 / 100 100 ml @ 25 mls/hr IV.SIG UNSCH PRN Rx#:[id number] fentaNYL 10 mcg/mL Premix Drip 250 / 250 2,500 mcg In 250 ml @ 50 MCG/HR 5 mls/hr IV.SIG TITRATE PRN Rx #:[id number] Tube Feeding 191 / 191 486 / 486 Output: Urine Amount (Catheter) 700 / 700 850 / 850 Straight 700 / 700 850 / 850 Other: Date of Last Bowel Movement 11/05/17 # Bowel Movements 0 0 Result Diagrams: 11/06/17 03:40 11/06/17 03:40 Objective Remarks: - Imaging Impressions Chest X-Ray 11/04/17 05:39 CONCLUSION: 1. Patchy left perihilar and right basilar airspace disease with possible developing right-sided effusion. 2. Lungs are hypoinflated. Head CT 11/04/17 05:39 CONCLUSION: 1. There appear to be new, subcortical white matter infarct posteriorly in the right parietal lobe. 2. There also appears to be some faint subarachnoid hemorrhage over the high parietal convex [place] bilaterally 3. No fractures, Report was called by [ Dr. Ellis to Dr. Sloan in the ED at 0614 hours] Head CTA 11/04/17 05:39 CONCLUSION: 1. Patient is left vertebral dominant. 2. Otherwise, intracranial vessels are all patent without embolic or aneurysmal disease. Neck CTA 11/04/17 05:39 CONCLUSION: 1. Patient is left vertebral dominant. 2. Otherwise, arch and cervical vessels are patent throughout. PE: GENERAL: Young male, intubated and on mechanical ventilation HEENT: Normocephalic. Atraumatic. Pupils 3 mm, equal, round, reactive, conjugate. Mucous membranes are moist NECK: Trachea is midline. Orotracheal route intubation. CHEST: Equal chest rise. Nasal cannula oxygen. Few crackles, no wheezes. CARDIOVASCULAR: Tachycardia, regular rhythm. Sinus. Neck veins are full. ABDOMEN: Soft, nontender, nondistended. No guarding. Bowel sounds sparse. MUSCULOSKELETAL: Pulses dp 2+. No peripheral edema. Multiple linear scars over the bilateral upper and lower extremities consistent with needle fan. Positive [place] lesions. NEUROLOGICAL: RASS -2. Musculoskeletal strength on the right is 1/5 at best in both the upper and lower extremities. Musculoskeletal strength on the left is 4 out of 5. Withdraws left side extremities to noxious stimulation. Question left hand grasp. 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 Patient remains very critically ill. We will need to admit him to the ICU for frequent neuro monitoring, emergent reversal of coagulopathy, and management of his multiorgan system failure. Plan by systems: Neurologic: Acute 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 Acute aphasia Right sided weakness Hemorrhagic Conversion Subarachnoid hemorrhage IV drug abuse - frequent neuro checks - avoid long-acting sedatives - MRI brain - neurosurgery consultation - EEG: no evidence of ictal activity -Worsening edema left temporal lobe on CAT scan. Respiratory: Hypoxemic respiratory failure Prehospital aspiration pneumonitis -Required intubation for inability to control airway last night. -Elevated PEEP to 12 required. - Cardiovascular: Mixed septic/cardiogenic shock Severe aortic regurgitation Large aortic valve vegetation 1x1.7cm Mild aortic stenosis from vegetation NS @ 50cc/hr Renal: Acute kidney injury - place fontaine - monitor uop - secondary to poor perfusion from cardiac output and severe sepsis -- Strict I/Os FEN/GI: Lactic Acidosis Acute protein calorie malnutrition- severe, temporal muscle wasting Start tube feedings ICU electrolyte protocol mivf trend lactate Heme/ID: Severe coagulopathy: suspected contaminated iv drugs with Rat Poison/Coumadin/ Warfarin Salicylate Poisoning: suspected contaminated IV drugs - recent history is absent for coagulopathy - stat 4 ffp and recheck - vit K 10 SQ - poison control involved - basic UDS +opiates and canabinoids. detailed UDS still pending - there have been reports of contaminated bath salts. in addition to detailed UDS, specific Bath Salts metabolites sent to reference lab. - salicylate levels downtrending. -INR now corrected after Feiba. Endocrine: -- SSI Prophylaxis: GI Prophylaxis protonix DVT Prophylaxis -- SCDs holding pharmacologic DVT prophylaxis due to risks of hemorrhagic conversion Lines: marito fontaine Overall impression: This gentleman is critically ill with systemic sepsis and organ dysfunction. Due to deteriorating status she required intubation and mechanical ventilation last night which will need to be continued. This is clearly bacterial endocarditis involving the [place] aortic valve and associated with embolic brain infarcts. His prognosis is guarded at best. Critical care time 40 minutes aside from procedures.
[2017-11-06] MEDS: Sod Chloride 0.9% Inj 1,000 ML IV.CONT SCH ×2 (08:22→14:15)
[2017-11-06] MEDS: Pantoprazole Inj 40 MG Vial IV.PUSH SCH (08:23)
--- NOTE | 2017-11-06 08:51 | P.PNID ---
Subjective Remarks: Patient is a 31-year-old male, who initially presented to [facility] emergency room October 30 complaining of 3 day history of headache. He gave a history of IV drug use. He was not febrile during that visit. WBC was normal. He underwent CT of the brain which was negative. Also underwent MRI of the thoracic and lumbar spine which were both negative for any infection. 2 blood cultures were done at that time and he was discharged. He came back to the hospital after his friends found him on the kitchen floor. He was reportedly unable to move his right side. And he was also noted to have some difficulty speaking. He remains afebrile. His white count is elevated. His CT of the head is now showing some findings in the right parietal area, as well as faint subarachnoid hemorrhage. CTA of the neck is negative. He has evidence of right-sided weakness, as well as expressive aphasia. The 2 blood cultures done on his ED visit is now reported as growing MSSA. Infectious disease consultation has been requested to evaluate the patient. Notes reviewed D/W RN Febrile last night BP ok On the vent Not a lot of ET secretions BC still (+) MSSA 11/05 MRI head, with multiple areas of infarct CT head repeat, with edema in temporal lobe CXR with increased infiltrates Echocardiogram: The left ventricular systolic function is normal with an estimated ejection fraction in the range of 60-65%. Trace mitral valve regurgitation. Large vegetation noted on the aortic valve (1.7cm x 1.0cm) Mild obstruction of the aortic valve due to vegetation with a mean gradient of 11 mmHg Severe eccentric aortic regurgitation There is trace tricuspid valve regurgitation. Antibiotics: Oxacillin Levaquin Lines: R central line Past Medical History: Diabetes Hypertension IVDU Allergies/Adverse Reactions: Allergies No Known Allergies Allergy (Unverified 10/30/17 21:54) Objective Vital Signs 11/05/17 09:00 11/05/17 11:11 11/05/17 12:00 Temperature 97.8 F Pulse Rate 76 79 Respiratory Rate 14 14 Blood Pressure 111/56 L Pulse Oximetry 99 100 11/05/17 15:47 11/05/17 16:00 11/05/17 19:59 Temperature 98.1 F Pulse Rate 88 Respiratory Rate 15 15 21 Blood Pressure 118/58 L Pulse Oximetry 100 96 11/05/17 20:00 11/06/17 00:00 11/06/17 03:28 Temperature 102.2 F H 100.4 F H Pulse Rate 96 H 92 H Respiratory Rate 18 17 17 Blood Pressure 132/56 L 128/58 L Pulse Oximetry 96 98 98 11/06/17 04:00 11/06/17 08:14 Temperature 99.5 F Pulse Rate 90 Respiratory Rate 17 Blood Pressure 127/57 L Pulse Oximetry 99 97 Intake & Output 11/05/17 11/06/17 11/06/17 18:59 06:59 18:59 Intake Total 274 / 2742 1985 Output Total 700 / 700 850 / 850 Balance 2041 / 2041 1136 / 1136 Weight 82.7 kg Intake: IV 2551 / 2551 1500 / 1500 Versed Inj 50 mg In 50 ml @ 2 50 / 50 MG/HR 2 mls/hr IV.CONT TITRATE PRN Rx#:[id number] Diprivan 1000 mg/100 ml Inj 1, 100 / 100 100 / 100 000 mg In 100 ml @ 5 MCG/KG/MIN 2.448 mls/hr IV.CONT TITRATE PRN Rx#:[id number] NS Inj 1,000 ML @ 70 mls/hr IV. 1000 / 1000 1000 / 1000 CONT .[id number] JONATHON Rx#:[id number] Levaquin 750 mg Premix Inj 150 150 / 150 ML @ 100 mls/hr IV.SIG Q24H JONATHON Rx#:[id number] Prostaphlin Inj 2 GM In NS Inj 400 / 400 300 / 300 100 ML @ 200 mls/hr IV.SIG Q4H JONATHON Rx#:[id number] KCl 20 mEq Premix Inj 20 meq In 200 / 200 100 ml @ 50 mls/hr IV.SIG Q2H PRN Rx#:[id number] KCl 40 mEq Premix Inj 40 meq In 100 / 100 100 ml @ 25 mls/hr IV.SIG UNSCH PRN Rx#:[id number] fentaNYL 10 mcg/mL Premix Drip 250 / 250 2,500 mcg In 250 ml @ 50 MCG/HR 5 mls/hr IV.SIG TITRATE PRN Rx #:[id number] Tube Feeding 191 / 191 486 / 486 Output: Urine Amount (Catheter) 700 / 700 850 / 850 Straight 700 / 700 850 / 850 Other: Date of Last Bowel Movement 11/05/17 # Bowel Movements 0 0 11/06/17 05:39 Blood - Peripheral Aerobic Blood Culture - Pending 11/06/17 05:39 Blood - Peripheral Anaerobic Blood Culture - Pending 11/05/17 04:22 Blood - Peripheral Aerobic Blood Culture - Preliminary gram positive cocci 11/05/17 04:22 Blood - Peripheral Anaerobic Blood Culture - Pending 11/05/17 11:40 Sputum - Endotracheal Gram Stain - Pending 11/05/17 11:40 Sputum - Endotracheal Sputum Culture - Pending 11/04/17 06:40 Blood - Peripheral Aerobic Blood Culture - Preliminary Staphylococcus aureus 11/04/17 06:40 Blood - Peripheral Anaerobic Blood Culture - Preliminary gram positive cocci 11/04/17 06:45 Blood - Peripheral Aerobic Blood Culture - Preliminary gram positive cocci 11/04/17 06:45 Blood - Peripheral Anaerobic Blood Culture - Preliminary Staphylococcus aureus 11/05/17 01:34 Catheterized Urine Urine Culture - Pending Lab - Hematology Results 11/04/17 11/05/17 11/05/17 05:45 01:34 04:00 WBC 9.6 RBC 3.34 L Hgb 9.4 L D 9.6 L Hct 26.9 L 27.5 L MCV 82.4 MCH 28.7 MCHC 34.9 RDW 12.9 Plt Count 83 L MPV 11.1 H ESR 70 H 11/06/17 03:40 WBC 9.7 RBC 3.60 L Hgb 10.2 L Hct 30.1 L MCV 83.6 MCH 28.3 MCHC 33.8 RDW 13.1 Plt Count 113 L D MPV 11.0 ESR Lab - Chemistry Results 11/04/17 11/04/17 11/04/17 11:15 11:15 11:15 Sodium Potassium Chloride Carbon Dioxide Anion Gap BUN Creatinine Estimated GFR Random Glucose Lactic Acid 1.7 Calcium Phosphorus Magnesium Total Bilirubin 0.5 Direct Bilirubin 0.3 H Indirect Bilirubin 0.2 AST 23 23 ALT 17 Alkaline Phosphatase 123 H Total Protein 6.9 D Albumin 2.1 L Prealbumin Triglycerides Cholesterol LDL Cholesterol, Calc HDL Cholesterol Cholesterol/HDL Ratio Vitamin B12 415 TSH 0.130 L Thyroxine (T4) 5.3 11/04/17 11/04/17 11/05/17 11:15 15:50 04:00 Sodium 137 142 Potassium 2.9 L* 3.5 Chloride 102 106 Carbon Dioxide 26.1 29.4 Anion Gap 9 7 BUN 19 H 23 H Creatinine 1.20 1.29 Estimated GFR 70 L 64 L Random Glucose 91 92 Lactic Acid Calcium 7.7 L 7.5 L Phosphorus 2.8 Magnesium 2.9 H Total Bilirubin 0.6 0.5 Direct Bilirubin Indirect Bilirubin AST 24 24 ALT 18 17 Alkaline Phosphatase 116 98 Total Protein 7.4 7.1 Albumin 2.4 L 2.4 L Prealbumin 11 L Triglycerides 190 H Cholesterol 65 L LDL Cholesterol, Calc 20 HDL Cholesterol 7.0 L Cholesterol/HDL Ratio 9.28 Vitamin B12 TSH Thyroxine (T4) 11/05/17 11/06/17 19:45 03:40 Sodium 146 H Potassium 3.4 L 3.8 Chloride 111 H Carbon Dioxide 27.7 Anion Gap 7 BUN 24 H Creatinine 1.06 Estimated GFR 80 L Random Glucose 116 H Lactic Acid Calcium 7.6 L Phosphorus 4.6 D Magnesium 2.8 H Total Bilirubin 0.6 Direct Bilirubin Indirect Bilirubin AST 32 ALT 18 Alkaline Phosphatase 103 Total Protein 7.4 Albumin 2.1 L Prealbumin Triglycerides Cholesterol LDL Cholesterol, Calc HDL Cholesterol Cholesterol/HDL Ratio Vitamin B12 TSH Thyroxine (T4) Imaging: ITS Impressions Head CTA 11/04/17 05:39 CONCLUSION: 1. Patient is left vertebral dominant. 2. Otherwise, intracranial vessels are all patent without embolic or aneurysmal disease. Neck CTA 11/04/17 05:39 CONCLUSION: 1. Patient is left vertebral dominant. 2. Otherwise, arch and cervical vessels are patent throughout. Head MRI 11/04/17 06:36 CONCLUSION: 1. Acute infarcts as described above suggesting embolic occlusion as described above. Largest areas in the left posterior sylvian region. Chest X-Ray 11/05/17 00:32 CONCLUSION: 1. . Worsening bilateral patchy airspace disease. Probable associated right- sided effusion. 2. Interval placement of a right subclavian central venous catheter, endotracheal and nasogastric tubes as detailed above. All appear to be appropriately positioned. No pneumothorax. Head CT 11/05/17 08:43 CONCLUSION: 1. New large area of edema in the left middle cerebral artery territory at site of infarction. There is no significant mass effect or midline shift. 2. Cerebellar areas of edema involving the right temporal parietal watershed region as well as the left caudate nucleus at site of restricted diffusion seen on MRI. 3. The previously noted apparent subtle subarachnoid hemorrhage over the high parietal convexities is no longer distinctly visualized. 4. No new hemorrhage. Physical Exam: GENERAL: Moves L side spontaneously, on the vent, NAD SKIN: Warm and dry. Has resolving red embolic lesions in BLE. Has Embolic lesions on L hand, improving HEAD: Atraumatic. Normocephalic. No temporal wasting, or tenderness. EYES: [place] conjunctiva. Has petechia on L conjunctiva. Pupils equal, round and reactive to light. No scleral icterus. No injection or drainage. EARS, NOSE AND THROAT: Nose without bleeding or purulent nasal discharge. No sinus tenderness. Mucous membranes pink and moist. NECK: Trachea midline. Supple and not tender, no meningeal signs CARDIOVASCULAR: Regular rate and rhythm. RESPIRATORY: Clear to auscultation. Breath sounds equal bilaterally. No rales , wheezing or rhonchi ABDOMEN: Soft, nondistended. Bowel sounds present and normoactive. No reaction to palpation. EXTREMITIES: No clubbing, cyanosis, or edema. No joint effusion. NEUROLOGICAL: Sedated on the vent, moves L side spontaneously, withdraws to pain on L PSYCHIATRIC: Unable to assess LINE: No evidence of infection Assessment and Plan - Plan Impression MSSA sepsis L sided endocarditis, due to IVDU - has large vegetation AV, causing mild obstruction CVA with R sided weakness, aphasia, due to embolic event from his IE IVDU Respiratory failure, has bilateral infiltrates Recommendation Follow blood C/S to document clearing Continue IV Oxacillin Add Rifampin for synergy Continue Levaquin Check sputum C/S Get CTS to evaluate large AV vegetation Monitor progress D/W HAN
--- NOTE | 2017-11-06 09:39 | CT ---
EXAM DATE: 11/06/2017 9:32 AM EDT AGE/SEX: 31 years / Male INDICATIONS: Hemiparesis. CLINICAL DATA: This is the patient's initial encounter. Patient reports that signs and symptoms have been present for 1 day and indicates a pain score of Nonresponsive. MEDICAL/SURGICAL HISTORY: Hypertension. Diabetes mellitus type II. None. RADIATION DOSE: 37.03 CTDI (mGy) [place] [facility] [place]04/[place]. . No external comparison. TECHNIQUE: CT of the head without contrast. Using automated exposure control and adjustment of the mA and/or kV according to patient size, radiation dose was kept as low as reasonably achievable to ob tain optimal diagnostic quality images. DICOM format image data is available electronically for revi ew and comparison. FINDINGS: There is a persistent large area of cytotoxic edema involving the left temporoparietal lobe as well a s focal edema involving the head of the left caudate nucleus consistent with known acute infarction i nvolving the left middle cerebral artery. There is a small area of edema involving the right posterio r parietal occipital lobe which is stable. No acute hemorrhage, midline shift, extra-axial bleed or v entriculomegaly is noted. CONCLUSION: 1. Persistent large area of cytotoxic edema involving the left temporoparietal lobe as well as focal edema involving the head of the left caudate nucleus consistent with known acute infarction involvin g the left middle cerebral artery. There is a small area of edema involving the right posterior parie keith occipital lobe which is stable. 2. No acute hemorrhage, midline shift, extra-axial bleed or ventriculomegaly. Electronically signed by: Dale Paiz MD 11/06/2017 9:38 AM EDT
[2017-11-06] MEDS: fentaNYL 10 mcg/mL Premix Drip 2,500 MCG/250 ML BAG IV.SIG PRN (13:02)
[2017-11-06] MEDS: Propofol 1000 mg/100 ml Inj 1,000 MG/100 ML BOTTLE IV.CONT PRN (15:45)
--- NOTE | 2017-11-06 16:03 | MR ---
This report includes an Addendum and supersedes previous reports for this exam. ADDENDUM Minimal ischemic changes are present in the left cerebellar hemisphere that may be associated with some subtle hemorrhage as well. Electronically signed by: Jairo Gamez MD 11/04/2017 3:38 PM EDT EXAM DATE: 11/04/2017 1:12 PM EDT AGE/SEX: 31 years / Male INDICATIONS: Altered mental status. CLINICAL DATA: This is the patient's initial encounter. Patient reports that signs and symptoms have been present for 1 day and indicates a pain score of Nonresponsive. MEDICAL/SURGICAL HISTORY: . IVDA. . unknown COMPARISON: No prior exams available for comparison. TECHNIQUE: Multiplanar, multisequence examination of the brain was performed without and with 8 ml Gadavist (gadobutrol) contrast as a single exam dose. FINDINGS: There is a large area of restricted diffusion in the left posterior MCA distribution involving the third fourth and fifth sylvian branches. Focal restricted diffusion is seen in the head of the caudate on the left and the right occipital region. These findings would suggest an embolic process. There is no parenchymal hemorrhage at yet. Small scattered hemosiderin deposits are seen throughout the brain. Ventricular size is appropriate There are no extra-axial fluid collections appreciated Posterior fossa appears normal The basilar artery is patent. Both carotids are patent at the skull base. The main segments of the anterior cerebral artery middle cerebral arteries are patent by MRI. I cannot confirm subtle hemorrhage with a high parietal areas. Subacute subarachnoid hemorrhage is difficult to see by MRI. CONCLUSION: 1. Acute infarcts as described above suggesting embolic occlusion as described above. Largest areas in the left posterior sylvian region. Electronically signed by: Jairo Gamez MD 11/04/2017 1:[address] [facility]
[2017-11-06] MEDS: Acetaminophen 325 MG Tablet PO PRN (16:50)
[2017-11-06] MEDS ORDERED: Famotidine 20 MG Tablet PO SCH (21:00)
[2017-11-06] MEDS: Famotidine 20 MG Tablet NG/OG SCH (23:02)
[2017-11-06] MEDS: Famotidine PF Inj 20 MG/2 ML Vial IV.PUSH SCH (23:02)
--- NOTE | 2017-11-06 23:29 | MB ---
cc: Johanna Durbin DATE: 11/06/2017 HISTORY OF PRESENT ILLNESS: The patient was found on the kitchen floor by his friends, according to the Emergency Department note that he was brought in by ambulance, suspect overdose, unable or unwilling to say what drugs he had taken. It was difficult to move his right upper and lower extremity on arrival, he also was experiencing some excessive aphasia. Stroke alert was called. The patient only was able to say his name with difficulty. He had difficulty understanding commands and was unwilling to cooperate. He was found to be tachycardic. Also had blood cultures, which grew out Staphylococcus aureus. CT showed hemorrhage in the left frontal sulci, which appeared to be an old right parietal infarct. CT of the neck and [place] of [place] was negative. Prior to that, he had been seen in the emergency department on the for headache, malacia in the low back when mild hypokalemia. At that time, a CT of the brain was negative. They did a cervical MRI and lumbosacral spine was negative for any abscesses. The patient did not receive tPA due to the hemorrhage. Further workup included echocardiogram which showed an ejection fraction of 60-65%, a large vegetation on the aortic valve, mild obstruction of the aortic valve due to vegetation. Severe aortic insufficiency and trace tricuspid valve regurgitation. We were consulted for aortic valve endocarditis. PAST MEDICAL HISTORY: Includes diabetes, hypertension, IV drug use, drug screen positive for cannabinoids. A full complete toxicology screen is pending. Note, the salicylates were elevated at 28 on 11/04/2017. ALLERGIES: NO KNOWN ALLERGIES. MEDICATIONS: No home medications documented. REVIEW OF SYSTEMS: Unobtainable. The patient is currently intubated on the vent, sedated. He does grimace to pain, resists opening the eyes to evaluate pupillary reaction. PHYSICAL EXAMINATION: VITAL SIGNS: Blood pressure 127/57, heart rate of 100. He is on 55% FiO2 with saturations 100%. HEENT: Pupils 3 mm, reactive. Orally intubated. NECK: Supple. Neck veins full. HEART: Sounds S1, S2, tachycardic. Soft systolic murmur. Soft systolic murmur. LUNGS: Equal bilaterally. Some coarse breath sounds. ABDOMEN: Soft, nontender. No masses or organomegaly. EXTREMITIES: Reveal +2. Some slight peripheral edema. He does have positive Janeway lesions on his nail beds. NEUROLOGIC: RAST -2, 1/5 on the right strength, left is 5/5. He does withdraw to noxious stimuli on the left. Apparently, per the critical care note that he also had a new finding of an INR of 9.8, again with an elevated salicylate level of 28. There was some suggestion in the community that the IV drugs have been contaminated with rapid poison and/or Coumadin and warfarin, possibly injected contaminated IV drugs. Poison Control was notified and they did order 4 units of FFP and the patient also received FEIBA as an alternative to Concentra which was not available. The INR was corrected. LABORATORY DATA: Shows hemoglobin 10.2, hematocrit of 30. White cell count of 9.7, platelet count of 113. INR was 10.1, now 1.1. Sodium 146, potassium 3.8, BUN of 24, creatinine 1.06, AST 32, ALT 18. Hepatitis B nonreactive. Hep C positive. ASSESSMENT AND PLAN: 1. This is a 31-year-old male with unfortunate overdose, awaiting full complete toxicology screen, acute cerebrovascular accident secondary to septic emboli, acute dysphagia, right-sided weakness, hemorrhagic conversion, subarachnoid hemorrhage. Neuro following. EEG: No evidence of seizure activity, worsening edema in the left temporal lobe. Apparently required intubation for inability to control his airway. 2. Mixed septic cardiogenic shock, severe aortic regurgitation with a large aortic valve vegetation. The patient is not a candidate for aortic valve surgery at this time due to acute subarachnoid hemorrhage and acute CVA, also ongoing septicemia and current positive toxicology screen, which again we are waiting for the full toxicology screen to return. 3. The patient also has acute kidney injury, lactic acidosis, which has resolved. 4. Severe coagulopathy. 5. Suspect contaminated IV drugs with rat poisoning, coumadin or warfarin. 6. Salicylate poisoning, again suspect contaminated IV drugs. 7. The patient is overall critically ill with systemic sepsis and organ dysfunction. PROGNOSIS: Very guarded at this time. He is not surgically a candidate and further plan per Dr. Barton. BRIE Carvalho MD JRT/sj/ll , 04:10 PM , 04:24 PM
[2017-11-07] MEDS: Propofol 1000 mg/100 ml Inj 1,000 MG/100 ML BOTTLE IV.CONT PRN ×3 (01:26→22:30)
[2017-11-07] MEDS ORDERED: Chlorhexidine Gluconate 2% 1 Pack (2 Cloths) TOPICAL PRN (04:00)
[2017-11-07] MEDS ORDERED: Chlorhexidine Gluconate 2% 1 Pack (2 Cloths) TOPICAL SCH (04:00)
[2017-11-07] MEDS: Chlorhexidine Gluconate 2% 1 Pack (2 Cloths) TOPICAL SCH (04:34)
[2017-11-07] MEDS: Sod Chloride 0.9% Inj 1,000 ML IV.CONT SCH (04:35)
[2017-11-07 04:41] LABS: Hemoglobin 9.5 gm/dL (13.0-17.0); Mean Corpuscular HGB Conc 34.1 % (32.0-36.0); Mean Corpuscular Hemoglobin 28.6 pg (27.0-34.0); Mean Platelet Volume 10.6 fL (7.0-11.0); Platelet Count 142 th/mm3 (150-450); Red Blood Count 3.33 mil/mm3 (4.50-5.90); Red Cell Distribution Width 13.5 % (11.6-17.2); White Blood Count 7.9 th/mm3 (4.0-11.0)
[2017-11-07 04:47] LABS: INR 1.1 Ratio; Prothrombin Time 10.7 sec (9.8-11.6)
[2017-11-07 05:00] LABS: Albumin 1.8 g/dL (3.4-5.0); Anion Gap 5 meq/L (5-15); Aspartate Aminotransferase 23 U/L (15-37); Blood Urea Nitrogen 21 mg/dL (7-18); Calcium 7.9 mg/dL (8.5-10.1); Carbon Dioxide 29.8 meq/L (21.0-32.0); Chloride 112 meq/L (98-107); Glomerular Filtration Rate 69 mL/min (>89); Glucose,Random 102 mg/dL (74-106); Magnesium 2.7 mg/dL (1.5-2.5); Sodium 147 meq/L (136-145)
[2017-11-07 05:02] LABS: Alanine Aminotransferase 13 U/L (12-78); Phosphorus 4.3 mg/dL (2.5-4.9)
[2017-11-07 05:04] LABS: Alkaline Phosphatase 85 U/L (45-117); Total Protein 7.4 g/dL (6.4-8.2)
[2017-11-07] MEDS: fentaNYL 10 mcg/mL Premix Drip 2,500 MCG/250 ML BAG IV.SIG PRN ×2 (06:48→21:35)
--- NOTE | 2017-11-07 08:19 | P.PNCC ---
Subjective Subjective Remarks/Hospital Course: This is a 31yM who recently presented to the emergency department on 10/30 with subjective fevers and back pain. At that time he was given an MRI of the spine due to his IV drug use and concern for endocarditis. His MRI spine was negative and he was discharged home. Blood cultures that were drawn at that time returned 4 out of 4 bottles with MSSA. Patient was attempted to be contacted at his home to return for medical attention, but he was unable to be contacted. He represents today with acute altered mental status and was found on the floor of his apartment. He is aphasic and has significant right-sided hemiparesis/weakness. CT brain demonstrates a small amount of subarachnoid blood and small areas of decreased density suggestive of acute infarcts. MRI confirms multiple small areas of infarct. I evaluated the patient and he is quite altered and aphasic and no additional information is available from him. I performed bedside critical care ultrasonography which demonstrates a large mobile mass on the aortic valve with associated severe aortic regurgitation. No pericardial effusion. In addition all this, the patient has a new finding of an INR of 9.8 as well as an elevated salicylate level of 28. Given there is recent community history seated to suggest that some of the IV drugs in the area have been contaminated with rapid poison and or Coumadin/warfarin, I have a high degree of suspicion that the patient may have injected contaminated IV drugs. I have contacted poison control who is following along. We have ordered 4 units of FFP emergently to be released to the patient. We have called pharmacy and due to a national shortage of the drug, we do not have any [facility] available. I have also ordered FEIBA as an alternative to [facility]. 11/05: INR has been corrected to normal. Repeat head CT shows no evidence of additional bleed. Noteworthy on head CT is new edema involving most of the temporal lobe on the left side, arising in the area of ischemic infarct. Other smaller defects are noted bilaterally. Blood cultures are growing MSSA, consistent with his IV drug use and aortic valve vegetation. Bilateral lung infiltrates noted on today's chest x-ray consistent with prehospital aspiration. 11/06: Tolerating spontaneous breathing trial with acceptable pressure support but oxygenation markedly impaired due to prehospital aspiration pneumonitis. No change in neurologic status. Cultures continued to be positive for staph aureus. 11/07: Continues to tolerate spontaneous breathing trials with acceptable pressure support. Minimal change in neurologic status and I cannot get him to follow any commands. Pre-albumin surprisingly low at 11, continue aggressive nutritional support. Objective Vital Signs / I&O: Vital Signs 11/06/17 09:00 11/06/17 11:38 11/06/17 12:00 Temperature 101.6 F H Pulse Rate 96 H 94 H Respiratory Rate 14 17 Blood Pressure 143/65 H Pulse Oximetry 92 L 99 11/06/17 12:16 11/06/17 15:32 11/06/17 16:00 Temperature 101.3 F H Pulse Rate 100 H 94 H Respiratory Rate 14 16 17 Blood Pressure 149/65 H Pulse Oximetry 100 99 11/06/17 20:00 11/06/17 21:06 11/06/17 23:59 Temperature 100.1 F H Pulse Rate 81 Respiratory Rate 14 17 14 Blood Pressure 127/60 Pulse Oximetry 100 99 100 11/07/17 00:00 11/07/17 04:00 11/07/17 04:27 Temperature 98.3 F 99.1 F Pulse Rate 77 91 H Respiratory Rate 14 14 14 Blood Pressure 119/59 L 138/62 Pulse Oximetry 100 100 99 Intake & Output 11/06/17 11/07/17 11/07/17 18:59 06:59 18:59 Intake Total 1258 / 1258 2550 / 2550 100 / 100 Output Total 800 / 800 2550 / 2550 Balance 458 / 458 0 / 0 100 / 100 Weight 86.8 kg Intake: IV 800 / 800 1550 / 1550 100 / 100 Diprivan 1000 mg/100 ml Inj 1, 100 / 100 100 / 100 000 mg In 100 ml @ 5 MCG/KG/MIN 2.448 mls/hr IV.CONT TITRATE PRN Rx#:[id number] NS Inj 1,000 ML @ 70 mls/hr IV. 1000 / 1000 CONT .[id number] [facility] Rx#:[id number] Levaquin 750 mg Premix Inj 150 150 / 150 ML @ 100 mls/hr IV.SIG Q24H [facility] Rx#:[id number] Prostaphlin Inj 2 GM In NS Inj 300 / 300 200 / 200 100 / 100 100 ML @ 200 mls/hr IV.SIG Q4H [facility] Rx#:[id number] fentaNYL 10 mcg/mL Premix Drip 250 / 250 250 / 250 2,500 mcg In 250 ml @ 50 MCG/HR 5 mls/hr IV.SIG TITRATE PRN Rx #:[id number] Oral 0 / 0 Tube Feeding 458 / 458 600 / 600 Water Bolus Amount 400 / 400 Output: Urine 900 / 900 Urine Amount (Catheter) 800 / 800 1650 / 1650 Indwelling Urethral Catheter 800 / 800 800 / 800 Straight 850 / 850 Other: Date of Last Bowel Movement 11/05/17 11/05/17 # Bowel Movements 0 Result Diagrams: 11/07/17 04:10 11/07/17 04:10 Objective Remarks: - Imaging Impressions Chest X-Ray 11/04/17 05:39 CONCLUSION: 1. Patchy left perihilar and right basilar airspace disease with possible developing right-sided effusion. 2. Lungs are hypoinflated. Head CT 11/04/17 05:39 CONCLUSION: 1. There appear to be new, subcortical white matter infarct posteriorly in the right parietal lobe. 2. There also appears to be some faint subarachnoid hemorrhage over the high parietal [place] bilaterally 3. No fractures, Report was called by [ Dr. Ellis to Dr. Sloan in the ED at 0614 hours] Head CTA 11/04/17 05:39 CONCLUSION: 1. Patient is left vertebral dominant. 2. Otherwise, intracranial vessels are all patent without embolic or aneurysmal disease. Neck CTA 11/04/17 05:39 CONCLUSION: 1. Patient is left vertebral dominant. 2. Otherwise, arch and cervical vessels are patent throughout. PE: GENERAL: Young male, intubated and on mechanical ventilation HEENT: Normocephalic. Atraumatic. Pupils 3 mm, equal, round, reactive, conjugate. Mucous membranes are moist NECK: Trachea is midline. Orotracheal route intubation. CHEST: Equal chest rise. Nasal cannula oxygen. Few crackles, no wheezes. CARDIOVASCULAR: Tachycardia, regular rhythm. Sinus. Neck veins are full. ABDOMEN: Soft, nontender, nondistended. No guarding. Bowel sounds sparse. MUSCULOSKELETAL: Pulses dp 2+. No peripheral edema. Multiple linear scars over the bilateral upper and lower extremities consistent with needle fan. Positive [place] lesions. NEUROLOGICAL: RASS -2. Musculoskeletal strength on the right is 1/5 at best in both the upper and lower extremities. Musculoskeletal strength on the left is 4 out of 5. Withdraws left side extremities to noxious stimulation. Question left hand grasp. 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 Patient remains very critically ill. We will need to admit him to the ICU for frequent neuro monitoring, emergent reversal of coagulopathy, and management of his multiorgan system failure. Plan by systems: Neurologic: Acute 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 Acute aphasia Right sided weakness Hemorrhagic Conversion Subarachnoid hemorrhage IV drug abuse - frequent neuro checks - avoid long-acting sedatives - MRI brain - neurosurgery consultation - EEG: no evidence of ictal activity -Worsening edema left temporal lobe on CAT scan. -Remains /26 Respiratory: Hypoxemic respiratory failure Prehospital aspiration pneumonitis -Required intubation for inability to control airway last night. -Elevated PEEP to 12 required to create oxygenation greater than 90%. -Able to reduce PEEP to 10 this morning. - Cardiovascular: Mixed septic/cardiogenic shock Severe aortic regurgitation Large aortic valve vegetation 1x1.7cm Mild aortic stenosis from vegetation NS @ 50cc/hr, mild AK I Renal: Acute kidney injury - place fontaine - monitor uop - secondary to poor perfusion from cardiac output and severe sepsis -- Strict I/Os FEN/GI: Lactic Acidosis Acute protein calorie malnutrition- severe, temporal muscle wasting Start tube feedings ICU electrolyte protocol mivf trend lactate Heme/ID: Severe coagulopathy: suspected contaminated iv drugs with Rat Poison/Coumadin/ Warfarin Salicylate Poisoning: suspected contaminated IV drugs - recent history is absent for coagulopathy - stat 4 ffp and recheck - vit K 10 SQ - poison control involved - basic UDS +opiates and canabinoids. detailed UDS still pending - there have been reports of contaminated bath salts. in addition to detailed UDS, specific Bath Salts metabolites sent to reference lab. - salicylate levels downtrending. -INR now corrected after Feiba. Endocrine: -- SSI Prophylaxis: GI Prophylaxis protonix DVT Prophylaxis -- SCDs holding pharmacologic DVT prophylaxis due to risks of hemorrhagic conversion Lines: piv fontaine Overall impression: This gentleman is critically ill with systemic sepsis and organ dysfunction. Due to deteriorating status he required intubation and mechanical ventilation last night which will need to be continued. This is clearly bacterial endocarditis involving the [place] aortic valve and associated with embolic brain infarcts. His prognosis is guarded at best. We will continue to hold DVT prophylaxis anticoagulation until repeat CAT scan confirms no additional bleeding. His neurologic status remains unstable. He will clearly have a profound correction neurological disability . Critical care time 45 minutes aside from procedures.
--- NOTE | 2017-11-07 08:25 | P.PNID ---
Subjective Remarks: Patient is a 31-year-old male, who initially presented to [facility] emergency room October 30 complaining of 3 day history of headache. He gave a history of IV drug use. He was not febrile during that visit. WBC was normal. He underwent CT of the brain which was negative. Also underwent MRI of the thoracic and lumbar spine which were both negative for any infection. 2 blood cultures were done at that time and he was discharged. He came back to the hospital after his friends found him on the kitchen floor. He was reportedly unable to move his right side. And he was also noted to have some difficulty speaking. He remains afebrile. His white count is elevated. His CT of the head is now showing some findings in the right parietal area, as well as faint subarachnoid hemorrhage. CTA of the neck is negative. He has evidence of right-sided weakness, as well as expressive aphasia. The 2 blood cultures done on his ED visit is now reported as growing MSSA. Infectious disease consultation has been requested to evaluate the patient. Notes reviewed Temps better BP ok On the vent Not a lot of ET secretions Sputum with Staph aureus CTS evaluation noted - not a surgical candidate BC still (+) MSSA 11/05 MRI head, with multiple areas of infarct CT head repeat, with edema in temporal lobe CXR with increased infiltrates Echocardiogram: The left ventricular systolic function is normal with an estimated ejection fraction in the range of 60-65%. Trace mitral valve regurgitation. Large vegetation noted on the aortic valve (1.7cm x 1.0cm) Mild obstruction of the aortic valve due to vegetation with a mean gradient of 11 mmHg Severe eccentric aortic regurgitation There is trace tricuspid valve regurgitation. Antibiotics: Oxacillin Levaquin Lines: R central line Past Medical History: Diabetes Hypertension IVDU Allergies/Adverse Reactions: Allergies No Known Allergies Allergy (Unverified 10/30/17 21:54) Objective Vital Signs 11/06/17 09:00 11/06/17 11:38 11/06/17 12:00 Temperature 101.6 F H Pulse Rate 96 H 94 H Respiratory Rate 14 17 Blood Pressure 143/65 H Pulse Oximetry 92 L 99 11/06/17 12:16 11/06/17 15:32 11/06/17 16:00 Temperature 101.3 F H Pulse Rate 100 H 94 H Respiratory Rate 14 16 17 Blood Pressure 149/65 H Pulse Oximetry 100 99 11/06/17 20:00 11/06/17 21:06 11/06/17 23:59 Temperature 100.1 F H Pulse Rate 81 Respiratory Rate 14 17 14 Blood Pressure 127/60 Pulse Oximetry 100 99 100 11/07/17 00:00 11/07/17 04:00 11/07/17 04:27 Temperature 98.3 F 99.1 F Pulse Rate 77 91 H Respiratory Rate 14 14 14 Blood Pressure 119/59 L 138/62 Pulse Oximetry 100 100 99 Intake & Output 11/06/17 11/07/17 11/07/17 18:59 06:59 18:59 Intake Total 1258 / 1258 2550 / 2550 100 / 100 Output Total 800 / 800 2550 / 2550 Balance 458 / 458 0 / 0 100 / 100 Weight 86.8 kg Intake: IV 800 / 800 1550 / 1550 100 / 100 Diprivan 1000 mg/100 ml Inj 1, 100 / 100 100 / 100 000 mg In 100 ml @ 5 MCG/KG/MIN 2.448 mls/hr IV.CONT TITRATE PRN Rx#:[id number] NS Inj 1,000 ML @ 70 mls/hr IV. 1000 / 1000 CONT .[id number] COUNTS INCLUDE 234 BEDS AT [facility] Rx#:[id number] Levaquin 750 mg Premix Inj 150 150 / 150 ML @ 100 mls/hr IV.SIG Q24H COUNTS INCLUDE 234 BEDS AT THE [facility] Rx#:[id number] Prostaphlin Inj 2 GM In NS Inj 300 / 300 200 / 200 100 / 100 100 ML @ 200 mls/hr IV.SIG Q4H COUNTS INCLUDE 234 BEDS AT THE [facility] Rx#:[id number] fentaNYL 10 mcg/mL Premix Drip 250 / 250 250 / 250 2,500 mcg In 250 ml @ 50 MCG/HR 5 mls/hr IV.SIG TITRATE PRN Rx #:[id number] Oral 0 / 0 Tube Feeding 458 / 458 600 / 600 Water Bolus Amount 400 / 400 Output: Urine 900 / 900 Urine Amount (Catheter) 800 / 800 1650 / 1650 Indwelling Urethral Catheter 800 / 800 800 / 800 Straight 850 / 850 Other: Date of Last Bowel Movement 11/05/17 11/05/17 # Bowel Movements 0 11/07/17 06:20 Blood - Peripheral Aerobic Blood Culture - Pending 11/07/17 06:20 Blood - Peripheral Anaerobic Blood Culture - Pending 11/06/17 08:55 Sputum - Endotracheal Gram Stain - Pending 11/06/17 08:55 Sputum - Endotracheal Sputum Culture - Pending 11/05/17 11:40 Sputum - Endotracheal Gram Stain - Final 11/05/17 11:40 Sputum - Endotracheal Sputum Culture - Preliminary Staphylococcus aureus 11/05/17 01:34 Catheterized Urine Urine Culture - Preliminary No growth in 24 hours 11/05/17 04:22 Blood - Peripheral Aerobic Blood Culture - Final Staphylococcus aureus 11/05/17 04:22 Blood - Peripheral Anaerobic Blood Culture - Preliminary No growth in 1 day 11/04/17 06:45 Blood - Peripheral Aerobic Blood Culture - Final Staphylococcus aureus 11/04/17 06:45 Blood - Peripheral Anaerobic Blood Culture - Final Staphylococcus aureus 11/04/17 06:40 Blood - Peripheral Aerobic Blood Culture - Final Staphylococcus aureus 11/04/17 06:40 Blood - Peripheral Anaerobic Blood Culture - Final Staphylococcus aureus 11/06/17 05:39 Blood - Peripheral Aerobic Blood Culture - Pending 11/06/17 05:39 Blood - Peripheral Anaerobic Blood Culture - Pending Lab - Hematology Results 11/06/17 11/07/17 03:40 04:10 WBC 9.7 7.9 RBC 3.60 L 3.33 L Hgb 10.2 L 9.5 L Hct 30.1 L 28.0 L MCV 83.6 84.0 MCH 28.3 28.6 MCHC 33.8 34.1 RDW 13.1 13.5 Plt Count 113 L D 142 L MPV 11.0 10.6 Lab - Chemistry Results 11/04/17 11/05/17 11/06/17 11:15 19:45 03:40 Sodium 146 H Potassium 3.4 L 3.8 Chloride 111 H Carbon Dioxide 27.7 Anion Gap 7 BUN 24 H Creatinine 1.06 Estimated GFR 80 L Random Glucose 116 H Calcium 7.6 L Phosphorus 4.6 D Magnesium 2.8 H Total Bilirubin 0.6 Direct Bilirubin Indirect Bilirubin AST 32 ALT 18 Alkaline Phosphatase 103 Total Protein 7.4 Albumin 2.1 L Thiamine 105 11/07/17 04:10 Sodium 147 H Potassium 4.0 Chloride 112 H Carbon Dioxide 29.8 Anion Gap 5 BUN 21 H Creatinine 1.21 Estimated GFR 69 L Random Glucose 102 Calcium 7.9 L Phosphorus 4.3 Magnesium 2.7 H Total Bilirubin 1.0 Direct Bilirubin 0.7 H Indirect Bilirubin 0.3 AST 23 ALT 13 Alkaline Phosphatase 85 Total Protein 7.4 Albumin 1.8 L Thiamine Imaging: ITS Impressions Head CTA 11/04/17 05:39 CONCLUSION: 1. Patient is left vertebral dominant. 2. Otherwise, intracranial vessels are all patent without embolic or aneurysmal disease. Neck CTA 11/04/17 05:39 CONCLUSION: 1. Patient is left vertebral dominant. 2. Otherwise, arch and cervical vessels are patent throughout. Head MRI 11/04/17 06:36 CONCLUSION: 1. Acute infarcts as described above suggesting embolic occlusion as described above. Largest areas in the left posterior [place] region. Chest X-Ray 11/05/17 00:32 CONCLUSION: 1. . Worsening bilateral patchy airspace disease. Probable associated right- sided effusion. 2. Interval placement of a right subclavian central venous catheter, endotracheal and nasogastric tubes as detailed above. All appear to be appropriately positioned. No pneumothorax. Head CT 11/06/17 07:54 CONCLUSION: 1. Persistent large area of cytotoxic edema involving the left temporoparietal lobe as well as focal edema involving the head of the left caudate nucleus consistent with known acute infarction involving the left middle cerebral artery. There is a small area of edema involving the right posterior parietal occipital lobe which is stable. 2. No acute hemorrhage, midline shift, extra-axial bleed or ventriculomegaly. Physical Exam: GENERAL: Moves L side spontaneously, on the vent, NAD SKIN: Warm and dry. Has resolving red embolic lesions in BLE. Has Embolic lesions on L hand, improving HEAD: Atraumatic. Normocephalic. No temporal wasting, or tenderness. EYES: [place] conjunctiva. Has petechia on L conjunctiva. Pupils equal, round and reactive to light. No scleral icterus. No injection or drainage. EARS, NOSE AND THROAT: Nose without bleeding or purulent nasal discharge. No sinus tenderness. Mucous membranes pink and moist. NECK: Trachea midline. Supple and not tender, no meningeal signs CARDIOVASCULAR: Regular rate and rhythm. RESPIRATORY: Clear to auscultation. Breath sounds equal bilaterally. No rales , wheezing or rhonchi ABDOMEN: Soft, nondistended. Bowel sounds present and normoactive. No reaction to palpation. EXTREMITIES: No clubbing, cyanosis, or edema. No joint effusion. NEUROLOGICAL: Sedated on the vent, moves L side spontaneously, withdraws to pain on L PSYCHIATRIC: Unable to assess LINE: No evidence of infection Assessment and Plan - Plan Impression MSSA sepsis L sided endocarditis, due to IVDU - has large vegetation AV, causing mild obstruction CVA with R sided weakness, aphasia, due to embolic event from his IE IVDU Respiratory failure, has bilateral infiltrates Recommendation Follow blood C/S to document clearing Continue IV Oxacillin Continue Rifampin for synergy Continue Levaquin Follow C/S Monitor progress
[2017-11-07] MEDS: Famotidine 20 MG Tablet NG/OG SCH (09:43)
[2017-11-07] MEDS: Pantoprazole Inj 40 MG Vial IV.PUSH SCH (09:43)
[2017-11-07] MEDS: Famotidine PF Inj 20 MG/2 ML Vial IV.PUSH SCH ×2 (09:43→21:00)
[2017-11-07] MEDS: Acetaminophen 325 MG Tablet PO PRN (09:44)
[2017-11-07] MEDS ORDERED: LORazepam 1 MG Tablet PO PRN (17:18)
[2017-11-07] MEDS ORDERED: Haloperidol Inj 5 MG/ML Ampul IV.PUSH PRN (17:18)
[2017-11-07] MEDS ORDERED: Etomidate Inj 40 MG/20 ML Vial IV.PUSH ONE (20:59)
[2017-11-07] MEDS ORDERED: Succinylcholine Inj 100 MG/5 ML Syringe IV.PUSH ONE (21:10)
[2017-11-07] MEDS ORDERED: Etomidate Inj 20 MG/10 ML Ampul IV.PUSH ONE (21:10)
[2017-11-07] MEDS ORDERED: Propofol Inj 500 MG/50 ML Vial ONE (21:19)
--- NOTE | 2017-11-07 21:44 | XR ---
EXAM DATE: 11/07/2017 9:35 PM EDT AGE/SEX: 31 years / Male INDICATIONS: Evaluate intubation and OG tube placement CLINICAL DATA: This is the patient's subsequent encounter. Patient reports that signs and symptoms h ave been present for 3 days and indicates a pain score of Nonresponsive. MEDICAL/SURGICAL HISTORY: . Hypertension. Diabetes mellitus type II. None. COMPARISON: C, CHEST 1V SINGLE AP, 11/05/2017. . FINDINGS: The ET tube tip is 4 cm from the delon. The NG tube is tracking into the stomach. There is a right s ubclavian line in place with tip overlying the SVC. The heart size is normal. The lungs exhibit diffu se mixed interstitial alveolar consolidation. There is silhouetting of the hemidiaphragms. CONCLUSION: Diffuse pulmonary consolidation likely representing diffuse processes such as edema. This is clearly worsened since the prior exam. Electronically signed by: Ysosi Thacker MD 11/07/2017 9:43 PM EDT
[2017-11-07 22:26] LABS: ABG Base Excess 2.4 mmol/L (-2-2); ABG PCO2 28 mmHg (38-42); ABG PO2 119 mmHg (61-120)
[2017-11-08] MEDS: Propofol 1000 mg/100 ml Inj 1,000 MG/100 ML BOTTLE IV.CONT PRN ×5 (02:31→18:38)
[2017-11-08] MEDS: Famotidine 20 MG Tablet NG/OG SCH ×2 (02:57→08:35)
[2017-11-08] MEDS: Chlorhexidine Gluconate 2% 1 Pack (2 Cloths) TOPICAL PRN (03:07)
[2017-11-08] MEDS: Chlorhexidine Gluconate 2% 1 Pack (2 Cloths) TOPICAL SCH (03:07)
[2017-11-08] MEDS: Sod Chloride 0.9% Inj 1,000 ML IV.CONT SCH ×2 (03:09→11:09)
[2017-11-08] MEDS: Acetaminophen 325 MG Tablet PO PRN (03:21)
[2017-11-08] MEDS: Oral Hygiene Kit OROPHARYNG SCH ×4 (03:43→16:46)
[2017-11-08 04:34] LABS: Hematocrit 27.6 % (39.0-51.0); Hemoglobin 9.2 gm/dL (13.0-17.0); Mean Corpuscular HGB Conc 33.5 % (32.0-36.0); Mean Corpuscular Hemoglobin 28.5 pg (27.0-34.0); Mean Platelet Volume 10.4 fL (7.0-11.0); Platelet Count 168 th/mm3 (150-450); Red Blood Count 3.24 mil/mm3 (4.50-5.90); Red Cell Distribution Width 13.2 % (11.6-17.2); White Blood Count 7.4 th/mm3 (4.0-11.0)
[2017-11-08 04:35] LABS: INR 1.1 Ratio; Prothrombin Time 11.3 sec (9.8-11.6)
[2017-11-08 04:46] LABS: Albumin 1.7 g/dL (3.4-5.0); Anion Gap 9 meq/L (5-15); Aspartate Aminotransferase 24 U/L (15-37); Blood Urea Nitrogen 20 mg/dL (7-18); Calcium 7.9 mg/dL (8.5-10.1); Carbon Dioxide 25.3 meq/L (21.0-32.0); Chloride 114 meq/L (98-107); Glomerular Filtration Rate 60 mL/min (>89); Glucose,Random 105 mg/dL (74-106); Magnesium 2.4 mg/dL (1.5-2.5); Potassium 4.1 meq/L (3.5-5.1); Sodium 148 meq/L (136-145)
[2017-11-08 04:48] LABS: Alanine Aminotransferase 12 U/L (12-78); Phosphorus 3.4 mg/dL (2.5-4.9)
[2017-11-08 04:50] LABS: Alkaline Phosphatase 70 U/L (45-117); Total Protein 7.6 g/dL (6.4-8.2)
[2017-11-08] MEDS: Pantoprazole Inj 40 MG Vial IV.PUSH SCH (08:35)
[2017-11-08] MEDS: Famotidine PF Inj 20 MG/2 ML Vial IV.PUSH SCH (08:35)
[2017-11-08] MEDS: Chlorhexidine 0.12% Oral Kit 15 ML UDC OROPHARYNG SCH ×2 (08:35→21:09)
--- NOTE | 2017-11-08 08:58 | P.PNID ---
Subjective Remarks: Patient is a 31-year-old male, who initially presented to [place] emergency room October 30 complaining of 3 day history of headache. He gave a history of IV drug use. He was not febrile during that visit. WBC was normal. He underwent CT of the brain which was negative. Also underwent MRI of the thoracic and lumbar spine which were both negative for any infection. 2 blood cultures were done at that time and he was discharged. He came back to the hospital after his friends found him on the kitchen floor. He was reportedly unable to move his right side. And he was also noted to have some difficulty speaking. He remains afebrile. His white count is elevated. His CT of the head is now showing some findings in the right parietal area, as well as faint subarachnoid hemorrhage. CTA of the neck is negative. He has evidence of right-sided weakness, as well as expressive aphasia. The 2 blood cultures done on his ED visit is now reported as growing MSSA. Infectious disease consultation has been requested to evaluate the patient. Notes reviewed D/W RN febrile last night Self extubated yesterday, required reintubation last night Sedated on the vent BC still (+) BP ok On the vent Not a lot of ET secretions Sputum with Staph aureus CTS evaluation noted - not a surgical candidate MRI head, with multiple areas of infarct CT head repeat, with edema in temporal lobe CXR with increased infiltrates Echocardiogram: The left ventricular systolic function is normal with an estimated ejection fraction in the range of 60-65%. Trace mitral valve regurgitation. Large vegetation noted on the aortic valve (1.7cm x 1.0cm) Mild obstruction of the aortic valve due to vegetation with a mean gradient of 11 mmHg Severe eccentric aortic regurgitation There is trace tricuspid valve regurgitation. Antibiotics: Oxacillin Rifampin Levaquin Lines: R central line Past Medical History: Diabetes Hypertension IVDU Allergies/Adverse Reactions: Allergies No Known Allergies Allergy (Unverified 10/30/17 21:54) Objective Vital Signs 11/07/17 09:00 11/07/17 11:41 11/07/17 12:00 Temperature 99.3 F Pulse Rate 96 H 86 Respiratory Rate 15 15 Blood Pressure 129/60 Pulse Oximetry 97 99 11/07/17 16:00 11/07/17 20:00 11/07/17 20:27 Temperature 99.9 F H 101.0 F H Pulse Rate 96 H 116 H Respiratory Rate 32 H 28 H Blood Pressure 145/64 H 180/74 H Pulse Oximetry 96 83 L 90 L 11/07/17 21:49 11/08/17 00:00 11/08/17 00:12 Temperature 101.0 F H Pulse Rate 98 H Respiratory Rate 30 H 10 L 10 L Blood Pressure 115/57 L Pulse Oximetry 94 L 100 100 11/08/17 04:00 11/08/17 04:12 11/08/17 07:52 Temperature 101.1 F H Pulse Rate 97 H 81 Respiratory Rate 10 L 10 L Blood Pressure 114/53 L Pulse Oximetry 100 100 11/08/17 07:58 11/08/17 08:00 11/08/17 08:32 Temperature 99.1 F Pulse Rate 87 Respiratory Rate 10 L 10 L Blood Pressure 128/60 Pulse Oximetry 100 100 100 Intake & Output 11/07/17 11/08/17 11/08/17 18:59 06:59 18:59 Intake Total 1503 / 1503 1700 / 1700 Output Total 1250 / 1250 700 / 700 Balance 253 / 253 1000 / 1000 Weight 84.9 kg Intake: IV 590 / 590 1700 / 1700 Diprivan 1000 mg/100 ml Inj 1, 90 / 90 300 / 300 000 mg In 100 ml @ 5 MCG/KG/MIN 2.448 mls/hr IV.CONT TITRATE PRN Rx#:[id number] NS Inj 1,000 ML @ 70 mls/hr IV. 1000 / 1000 CONT .[id number] [facility] Rx#:[id number] Levaquin 750 mg Premix Inj 150 150 / 150 ML @ 100 mls/hr IV.SIG Q24H [facility] Rx#:[id number] Prostaphlin Inj 2 GM In NS Inj 300 / 300 400 / 400 100 ML @ 200 mls/hr IV.SIG Q4H [facility] Rx#:[id number] fentaNYL 10 mcg/mL Premix Drip 50 / 50 2,500 mcg In 250 ml @ 50 MCG/HR 5 mls/hr IV.SIG TITRATE PRN Rx #:[id number] Tube Feeding 713 / 713 Water Bolus Amount 200 / 200 Output: Urine 1250 / 1250 Urine Amount (Catheter) 700 / 700 Indwelling Urethral Catheter 700 / 700 Other: Date of Last Bowel Movement 11/07/17 11/08/1711/07/18 # Bowel Movements 1 # Incontinent Bowel Movements 2 11/06/17 08:55 Sputum - Endotracheal Gram Stain - Final 11/06/17 08:55 Sputum - Endotracheal Sputum Culture - Final Staphylococcus aureus 11/05/17 11:40 Sputum - Endotracheal Gram Stain - Final 11/05/17 11:40 Sputum - Endotracheal Sputum Culture - Final Staphylococcus aureus 11/06/17 05:39 Blood - Peripheral Aerobic Blood Culture - Preliminary gram positive cocci 11/06/17 05:39 Blood - Peripheral Anaerobic Blood Culture - Preliminary No growth in 1 day 11/05/17 04:22 Blood - Peripheral Aerobic Blood Culture - Final Staphylococcus aureus 11/05/17 04:22 Blood - Peripheral Anaerobic Blood Culture - Preliminary No growth in 2 days 11/05/17 01:34 Catheterized Urine Urine Culture - Final No growth in 48 hours 11/07/17 06:20 Blood - Peripheral Aerobic Blood Culture - Pending 11/07/17 06:20 Blood - Peripheral Anaerobic Blood Culture - Pending 11/04/17 06:45 Blood - Peripheral Aerobic Blood Culture - Final Staphylococcus aureus 11/04/17 06:45 Blood - Peripheral Anaerobic Blood Culture - Final Staphylococcus aureus 11/04/17 06:40 Blood - Peripheral Aerobic Blood Culture - Final Staphylococcus aureus 11/04/17 06:40 Blood - Peripheral Anaerobic Blood Culture - Final Staphylococcus aureus Lab - Hematology Results 11/07/17 11/08/17 04:10 04:11 WBC 7.9 7.4 RBC 3.33 L 3.24 L Hgb 9.5 L 9.2 L Hct 28.0 L 27.6 L MCV 84.0 85.0 MCH 28.6 28.5 MCHC 34.1 33.5 RDW 13.5 13.2 Plt Count 142 L 168 MPV 10.6 10.4 Lab - Chemistry Results 11/04/17 11/07/17 11/08/17 11:15 04:10 04:11 Sodium 147 H 148 H Potassium 4.0 4.1 Chloride 112 H 114 H Carbon Dioxide 29.8 25.3 Anion Gap 5 9 BUN 21 H 20 H Creatinine 1.21 1.37 H Estimated GFR 69 L 60 L Random Glucose 102 105 Calcium 7.9 L 7.9 L Phosphorus 4.3 3.4 Magnesium 2.7 H 2.4 Total Bilirubin 1.0 1.0 Direct Bilirubin 0.7 H Indirect Bilirubin 0.3 AST 23 24 ALT 13 12 Alkaline Phosphatase 85 70 Total Protein 7.4 7.6 Albumin 1.8 L 1.7 L Thiamine 105 Imaging: ITS Impressions Head CTA 11/04/17 05:39 CONCLUSION: 1. Patient is left vertebral dominant. 2. Otherwise, intracranial vessels are all patent without embolic or aneurysmal disease. Neck CTA 11/04/17 05:39 CONCLUSION: 1. Patient is left vertebral dominant. 2. Otherwise, arch and cervical vessels are patent throughout. Head MRI 11/04/17 06:36 CONCLUSION: 1. Acute infarcts as described above suggesting embolic occlusion as described above. Largest areas in the left posterior sylvian region. Head CT 11/06/17 07:54 CONCLUSION: 1. Persistent large area of cytotoxic edema involving the left temporoparietal lobe as well as focal edema involving the head of the left caudate nucleus consistent with known acute infarction involving the left middle cerebral artery. There is a small area of edema involving the right posterior parietal occipital lobe which is stable. 2. No acute hemorrhage, midline shift, extra-axial bleed or ventriculomegaly. Chest X-Ray 11/07/17 21:17 CONCLUSION: Physical Exam: GENERAL: Sedated on the vent SKIN: Warm and dry. Has resolving red embolic lesions in BLE. Has Embolic lesions on L hand, improving HEAD: Atraumatic. Normocephalic. No temporal wasting, or tenderness. EYES: [place] conjunctiva. Has petechia on L conjunctiva. Pupils equal, round and reactive to light. No scleral icterus. No injection or drainage. EARS, NOSE AND THROAT: Nose without bleeding or purulent nasal discharge. No sinus tenderness. Mucous membranes pink and moist. NECK: Trachea midline. Supple and not tender, no meningeal signs CARDIOVASCULAR: Regular rate and rhythm. RESPIRATORY: Decreased breath sounds bila ABDOMEN: Soft, nondistended. Bowel sounds present and normoactive. No reaction to palpation. EXTREMITIES: No clubbing, cyanosis, or edema. No joint effusion. NEUROLOGICAL: Sedated on the vent, PSYCHIATRIC: Unable to assess LINE: No evidence of infection Assessment and Plan - Plan Impression MSSA sepsis L sided endocarditis AV, due to IVDU - has large vegetation AV, causing mild obstruction CVA with R sided weakness, aphasia, due to embolic event from his IE IVDU Respiratory failure, has bilateral infiltrates MSSA PNA Recommendation Follow blood C/S to document clearing Continue IV Oxacillin Continue Rifampin for synergy Continue Levaquin Follow C/S Follow temps Monitor progress Per CTS not surgical candidate
--- NOTE | 2017-11-08 10:03 | P.PNCC ---
Subjective Subjective Remarks/Hospital Course: This is a 31yM who recently presented to the emergency department on 10/30 with subjective fevers and back pain. At that time he was given an MRI of the spine due to his IV drug use and concern for endocarditis. His MRI spine was negative and he was discharged home. Blood cultures that were drawn at that time returned 4 out of 4 bottles with MSSA. Patient was attempted to be contacted at his home to return for medical attention, but he was unable to be contacted. He represents today with acute altered mental status and was found on the floor of his apartment. He is aphasic and has significant right-sided hemiparesis/weakness. CT brain demonstrates a small amount of subarachnoid blood and small areas of decreased density suggestive of acute infarcts. MRI confirms multiple small areas of infarct. I evaluated the patient and he is quite altered and aphasic and no additional information is available from him. I performed bedside critical care ultrasonography which demonstrates a large mobile mass on the aortic valve with associated severe aortic regurgitation. No pericardial effusion. In addition all this, the patient has a new finding of an INR of 9.8 as well as an elevated salicylate level of 28. Given there is recent community history seated to suggest that some of the IV drugs in the area have been contaminated with rapid poison and or Coumadin/warfarin, I have a high degree of suspicion that the patient may have injected contaminated IV drugs. I have contacted poison control who is following along. We have ordered 4 units of FFP emergently to be released to the patient. We have called pharmacy and due to a national shortage of the drug, we do not have any [facility]ra available. I have also ordered FEIBA as an alternative to K [facility]ra. 11/05: INR has been corrected to normal. Repeat head CT shows no evidence of additional bleed. Noteworthy on head CT is new edema involving most of the temporal lobe on the left side, arising in the area of ischemic infarct. Other smaller defects are noted bilaterally. Blood cultures are growing MSSA, consistent with his IV drug use and aortic valve vegetation. Bilateral lung infiltrates noted on today's chest x-ray consistent with prehospital aspiration. 11/06: Tolerating spontaneous breathing trial with acceptable pressure support but oxygenation markedly impaired due to prehospital aspiration pneumonitis. No change in neurologic status. Cultures continued to be positive for staph aureus. 11/07: Continues to tolerate spontaneous breathing trials with acceptable pressure support. Minimal change in neurologic status and I cannot get him to follow any commands. Pre-albumin surprisingly low at 11, continue aggressive nutritional support. 11/08: Extubated himself yesterday morning and tolerated spontaneous breathing with supplemental oxygen during the day. In the early evening he became unable to protect his airway and his respiratory effort became much weaker. He required endotracheal intubation and mechanical ventilation thereafter. While extubated he did respond to simple commands including moving his left hand. He did repeat simple 2 and 3 word statements. The chest x-ray following reintubation and is consistent with heart failure although the hemodynamics belie that, more consistent with an inflammatory process. Objective Vital Signs / I&O: Vital Signs 11/07/17 11:41 11/07/17 12:00 11/07/17 16:00 Temperature 99.3 F 99.9 F H Pulse Rate 86 96 H Respiratory Rate 15 15 32 H Blood Pressure 129/60 145/64 H Pulse Oximetry 97 99 96 11/07/17 20:00 11/07/17 20:27 11/07/17 21:49 Temperature 101.0 F H Pulse Rate 116 H Respiratory Rate 28 H 30 H Blood Pressure 180/74 H Pulse Oximetry 83 L 90 L 94 L 11/08/17 00:00 11/08/17 00:12 11/08/17 04:00 Temperature 101.0 F H 101.1 F H Pulse Rate 98 H 97 H Respiratory Rate 10 L 10 L 10 L Blood Pressure 115/57 L 114/53 L Pulse Oximetry 100 100 100 11/08/17 04:12 11/08/17 07:52 11/08/17 07:58 Temperature Pulse Rate 81 Respiratory Rate 10 L Blood Pressure Pulse Oximetry 100 100 11/08/17 08:00 11/08/17 08:32 Temperature 99.1 F Pulse Rate 87 Respiratory Rate 10 L 10 L Blood Pressure 128/60 Pulse Oximetry 100 100 Intake & Output 11/07/17 11/08/17 11/08/17 18:59 06:59 18:59 Intake Total 1503 / 1503 1700 / 1700 Output Total 1250 / 1250 700 / 700 Balance 253 / 253 1000 / 1000 Weight 84.9 kg Intake: IV 590 / 590 1700 / 1700 Diprivan 1000 mg/100 ml Inj 1, 90 / 90 300 / 300 000 mg In 100 ml @ 5 MCG/KG/MIN 2.448 mls/hr IV.CONT TITRATE PRN Rx#:[id number] NS Inj 1,000 ML @ 70 mls/hr IV. 1000 / 1000 CONT .[id number] [facility] Rx#:[id number] Levaquin 750 mg Premix Inj 150 150 / 150 ML @ 100 mls/hr IV.SIG Q24H [facility] Rx#:[id number] Prostaphlin Inj 2 GM In NS Inj 300 / 300 400 / 400 100 ML @ 200 mls/hr IV.SIG Q4H [facility] Rx#:[id number] fentaNYL 10 mcg/mL Premix Drip 50 / 50 2,500 mcg In 250 ml @ 50 MCG/HR 5 mls/hr IV.SIG TITRATE PRN Rx #:[id number] Tube Feeding 713 / 713 Water Bolus Amount 200 / 200 Output: Urine 1250 / 1250 Urine Amount (Catheter) 700 / 700 Indwelling Urethral Catheter 700 / 700 Other: Date of Last Bowel Movement 11/07/17 11/08/17 11/07/17 # Bowel Movements 1 # Incontinent Bowel Movements 2 Result Diagrams: 11/08/17 04:11 11/08/17 04:11 Objective Remarks: - Imaging Impressions Chest X-Ray 11/04/17 05:39 CONCLUSION: 1. Patchy left perihilar and right basilar airspace disease with possible developing right-sided effusion. 2. Lungs are hypoinflated. Head CT 11/04/17 05:39 CONCLUSION: 1. There appear to be new, subcortical white matter infarct posteriorly in the right parietal lobe. 2. There also appears to be some faint subarachnoid hemorrhage over the high parietal [place] bilaterally 3. No fractures, Report was called by [ Dr. Ellis to Dr. Sloan in the ED at 0614 hours] Head CTA 11/04/17 05:39 CONCLUSION: 1. Patient is left vertebral dominant. 2. Otherwise, intracranial vessels are all patent without embolic or aneurysmal disease. Neck CTA 11/04/17 05:39 CONCLUSION: 1. Patient is left vertebral dominant. 2. Otherwise, arch and cervical vessels are patent throughout. PE: GENERAL: Young male, reintubated and on mechanical ventilation HEENT: Normocephalic. Atraumatic. Pupils 2 mm, equal, round, reactive, conjugate. Mucous membranes are moist NECK: Trachea is midline. Orotracheal route intubation. CHEST: Equal chest rise. Nasal cannula oxygen. Diffuse crackles, no wheezes. CARDIOVASCULAR: Tachycardia, regular rhythm. Sinus. Neck veins are full. ABDOMEN: Soft, nontender, nondistended. No guarding. Bowel sounds present. MUSCULOSKELETAL: Pulses dp 2+. No peripheral edema. Multiple linear scars over the bilateral upper and lower extremities consistent with needle fan. Positive [place] lesions. NEUROLOGICAL: RASS -1. Musculoskeletal strength on the right is 1/5 at best in both the upper and lower extremities. Musculoskeletal strength on the left is 4 out of 5. Withdraws left side extremities to noxious stimulation. Intermittent left hand grasp to command. 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 Patient remains very critically ill. We will need to admit him to the ICU for frequent neuro monitoring, emergent reversal of coagulopathy, and management of his multiorgan system failure. Worsening pulmonary function manifested as diffuse bilateral lung infiltrates and dependence on mechanical ventilation. Plan by systems: Neurologic: Acute 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 Acute aphasia Right sided weakness Hemorrhagic Conversion Subarachnoid hemorrhage IV drug abuse - frequent neuro checks - avoid long-acting sedatives - MRI brain - neurosurgery consultation - EEG: no evidence of ictal activity -Worsening edema left temporal lobe on CAT scan. -Spoke simple 2 and 3 word sentences yesterday following extubation. Appears confused. Respiratory: Hypoxemic respiratory failure Prehospital aspiration pneumonitis -Required intubation for inability to control airway last night. -Elevated PEEP to 12 required to create oxygenation greater than 90%. -Able to reduce PEEP to 5 this morning. -Converted to airway pressure release ventilation with good oxygen diffusion. - Cardiovascular: Mixed septic/cardiogenic shock Severe aortic regurgitation Large aortic valve vegetation 1x1.7cm Mild aortic stenosis from vegetation NS @ 50cc/hr, mild AK I Renal: Acute kidney injury - place fontaine - monitor uop - secondary to poor perfusion from cardiac output and severe sepsis -- Strict I/Os FEN/GI: Lactic Acidosis Acute protein calorie malnutrition- severe, temporal muscle wasting Start tube feedings ICU electrolyte protocol mivf trend lactate Although radiographic picture would disagree his renal function appears to indicate prerenal azotemia. Heme/ID: Severe coagulopathy: suspected contaminated iv drugs with Rat Poison/Coumadin/ Warfarin Salicylate Poisoning: suspected contaminated IV drugs - recent history is absent for coagulopathy - stat 4 ffp and recheck - vit K 10 SQ - poison control involved - basic UDS +opiates and canabinoids. detailed UDS still pending - there have been reports of contaminated bath salts. in addition to detailed UDS, specific Bath Salts metabolites sent to reference lab. - salicylate levels downtrending. -INR now corrected after Feiba. Endocrine: -- SSI Prophylaxis: GI Prophylaxis protonix DVT Prophylaxis -- SCDs holding pharmacologic DVT prophylaxis due to risks of hemorrhagic conversion Lines: marito fontaine Overall impression: This gentleman is critically ill with systemic sepsis and organ dysfunction. Due to deteriorating status he required intubation and mechanical ventilation last night which will need to be continued. This is clearly bacterial endocarditis involving the [place] aortic valve and associated with embolic brain infarcts. His prognosis is guarded at best. We will continue to hold DVT prophylaxis anticoagulation until repeat CAT scan confirms no additional bleeding. His neurologic status remains unstable. He will clearly have a profound detention neurological disability . At this juncture it looks like he will require a tracheostomy but would certainly like to defer that should he become stable enough to tolerate a sternotomy for aortic valve replacement. Critical care time 40 minutes aside from procedures.
--- NOTE | 2017-11-08 12:15 | P.PNNEU ---
Subjective Subjective Comments: extubate self yest and stayed off vent for few hours and interacted and moved left side well tried to talk Active Medications: Active Medications Acetaminophen (Tylenol) 650 mg PO Q6H PRN PRN Reason: TEMPERATURE > 101 F Last Admin: 11/08/17 03:21 Dose: 650 mg Albuterol (Duoneb Neb (Prn)) 1 ampul NEB Q2HR NEB PRN PRN Reason: WHEEZING Last Admin: 11/06/17 12:12 Dose: 1 ampul Chlorhexidine Gluconate (Peridex 0.12% Oral Kit) 15 ml OROPHARYNG BID@0800, 2000 [facility] Last Admin: 11/08/17 08:35 Dose: 15 ml Chlorhexidine Gluconate (Chlorhexidine 2% Cloth) 3 pack TOPICAL DAILY@0400 [facility] Stop: 11/10/17 03:59 Last Admin: 11/08/17 03:07 Dose: 3 pack Chlorhexidine Gluconate (Chlorhexidine 2% Cloth) 3 pack TOPICAL DAILY@0400 PRN PRN Reason: Extra cloth needed Stop: 11/10/17 03:59 Last Admin: 11/08/17 03:07 Dose: 3 pack Flumazenil (Romazecon Inj) 0.2 mg IV.PUSH Q1M PRN PRN Reason: OVERSEDATION Haloperidol Lactate (Haldol Inj) 1 mg IV.PUSH Q15M PRN PRN Reason: for severe agitation Midazolam HCl (Versed Inj) 50 mg in 50 mls @ 2 mls/hr IV.CONT TITRATE PRN; Protocol PRN Reason: Per Protocol Last Titration: 11/05/17 15:30 Dose: 0 mg/hr, 0 mls/hr Levofloxacin/Dextrose (Levaquin 750 Mg Premix Inj) 150 mls @ 100 mls/hr IV.SIG Q24H [facility] Last Infusion: 11/07/17 13:22 Dose: Infused Fentanyl (Fentanyl 10 Mcg/Ml Premix Drip) 2,500 mcg in 250 mls @ 5 mls/hr IV.SIG TITRATE PRN; Protocol PRN Reason: Per Protocol Last Admin: 11/07/17 21:35 Dose: 50 mcg/hr, 5 mls/hr Propofol (Diprivan 1000 Mg/100 Ml Inj) 1,000 mg in 100 mls @ 2.448 mls/hr IV.CONT TITRATE PRN; Protocol PRN Reason: Per Protocol Last Admin: 11/08/17 11:09 Dose: 50 mcg/kg/min, 24.48 mls/hr Sodium Chloride (Ns Inj) 1,000 mls @ 70 mls/hr IV.CONT .[id number] [facility] Last Admin: 11/08/17 11:09 Dose: 70 mls/hr Magnesium Sulfate Inj 4 gm/ (Sodium Chloride) 100 mls @ 50 mls/hr IV.SIG UNSCH PRN PRN Reason: For Magnesium 0.9 - 1.1 mg/dL Magnesium Sulfate Inj 2 gm/ (Sodium Chloride) 100 mls @ 50 mls/hr IV.SIG UNSCH PRN PRN Reason: For Magnesium 1.2 - 1.6 mg/dL Potassium Chloride (Kcl 40 Meq Premix Inj) 40 meq in 100 mls @ 25 mls/hr IV.SIG Q2H PRN PRN Reason: For Potassium 2.8 - 3.2 mEq/L Potassium Chloride (Kcl 20 Meq Premix Inj) 20 meq in 100 mls @ 50 mls/hr IV.SIG Q2H PRN PRN Reason: For Potassium 3.3 - 3.5 mEq/L Last Infusion: 11/05/17 07:00 Dose: Infused Potassium Chloride (Kcl 40 Meq Premix Inj) 40 meq in 100 mls @ 25 mls/hr IV.SIG UNSCH PRN PRN Reason: For Potassium 3.3 - 3.5 mEq/L Last Infusion: 11/06/17 02:06 Dose: Infused Potassium Chloride (Kcl 20 Meq Premix Inj) 20 meq in 100 mls @ 50 mls/hr IV.SIG Q2H PRN PRN Reason: For Potassium 2.8 - 3.2 mEq/L Last Infusion: 11/05/17 07:00 Dose: Infused Potassium Phosphate 30 mmol/ (Sodium Chloride) 260 mls @ 42 mls/hr IV.SIG UNSCH PRN PRN Reason: SEE LABEL COMMENTS Sodium Phosphate 30 mmol/ (Sodium Chloride) 260 mls @ 42 mls/hr IV.SIG UNSCH PRN PRN Reason: For Phosphorus < 2.5 mg/dL Oxacillin Sodium 2 gm/ Sodium (Chloride) 100 mls @ 200 mls/hr IV.SIG Q4H [facility] Last Admin: 11/08/17 08:36 Dose: 200 mls/hr Lorazepam (Ativan) 1 mg PO Q4H PRN PRN Reason: for CIWA 8-10 Lorazepam (Ativan) 2 mg PO Q2H PRN PRN Reason: for CIWA 11-14 Lorazepam (Ativan Inj) 2 mg IV.PUSH Q2H PRN PRN Reason: for CIWA 11-14 Lorazepam (Ativan Inj) 2 mg IV.PUSH Q15M PRN PRN Reason: for CIWA > 20 Last Admin: 11/07/17 18:37 Dose: 2 mg Lorazepam (Ativan Inj) 1 mg IV.PUSH Q4H PRN PRN Reason: for CIWA 8-10 Lorazepam (Ativan Inj) 2 mg IV.PUSH Q1H PRN PRN Reason: for CIWA 15-20 Magnesium Oxide (Mag-Ox) 800 mg PO UNSCH PRN PRN Reason: For Magnesium 1.2 - 1.6 mg/dL Ondansetron HCl (Zofran Odt) 4 mg PO Q6H PRN PRN Reason: NAUSEA OR VOMITING Pantoprazole Sodium (Protonix Inj) 40 mg IV.PUSH DAILY [facility] Last Admin: 11/08/17 08:35 Dose: 40 mg Potassium Bicarb/Potassium Chloride (K-Lyte Cl Eff) 50 meq PO ONCE [facility] Last Admin: 11/04/17 21:31 Dose: 50 meq Potassium Bicarb/Potassium Chloride (K-Lyte Cl Eff) 50 meq PO UNSCH PRN PRN Reason: For Potassium 3.3 - 3.5 mEq/L Potassium Phosphate (K-Phos Original) 2,000 mg PO UNSCH PRN PRN Reason: SEE LABEL COMMENTS Potassium Phosphate (K-Phos Original) 2,000 mg PO Q4H PRN PRN Reason: Phosphorus Less Than 2.5 mg/dL Rifampin (Rifampin) 300 mg PO Q12HR [facility] Last Admin: 11/08/17 08:37 Dose: 300 mg Sodium Chloride (Ns Flush) 2 ml IV.FLUSH BID [facility] Last Admin: 11/08/17 08:35 Dose: 2 ml Sodium Chloride (Ns Flush) 2 ml IV.FLUSH PRN PRN PRN Reason: FLUSH AFTER USING IV ACCESS Allergies/Adverse Reactions: Allergies Allergy/AdvReac Type Severity Reaction Status Date / Time No Known Allergies Allergy Unverified 10/30/17 21:54 Physical Exam Vital signs: Vital Signs 11/07/17 16:00 11/07/17 20:00 11/07/17 20:27 Temperature 99.9 F H 101.0 F H Pulse Rate 96 H 116 H Respiratory Rate 32 H 28 H Blood Pressure 145/64 H 180/74 H Pulse Oximetry 96 83 L 90 L 11/07/17 21:49 11/08/17 00:00 11/08/17 00:12 Temperature 101.0 F H Pulse Rate 98 H Respiratory Rate 30 H 10 L 10 L Blood Pressure 115/57 L Pulse Oximetry 94 L 100 100 11/08/17 04:00 11/08/17 04:12 11/08/17 07:52 Temperature 101.1 F H Pulse Rate 97 H 81 Respiratory Rate 10 L 10 L Blood Pressure 114/53 L Pulse Oximetry 100 100 11/08/17 07:58 11/08/17 08:00 11/08/17 08:32 Temperature 99.1 F Pulse Rate 87 Respiratory Rate 10 L 10 L Blood Pressure 128/60 Pulse Oximetry 100 100 100 11/08/17 09:00 Temperature Pulse Rate 87 Respiratory Rate Blood Pressure Pulse Oximetry Intake & Output 11/07/17 11/08/17 11/08/17 18:59 06:59 18:59 Intake Total 1503 / 1503 1700 / 1700 800 / 800 Output Total 1250 / 1250 700 / 700 Balance 253 / 253 1000 / 1000 800 / 800 Weight 84.9 kg Intake: IV 590 / 590 1700 / 1700 800 / 800 Diprivan 1000 mg/100 ml Inj 1, 90 / 90 300 / 300 100 / 100 000 mg In 100 ml @ 5 MCG/KG/MIN 2.448 mls/hr IV.CONT TITRATE PRN Rx#:[id number] NS Inj 1,000 ML @ 70 mls/hr IV. 1000 / 1000 700 / 700 CONT .[id number] JONATHON Rx#:[id number] Levaquin 750 mg Premix Inj 150 150 / 150 ML @ 100 mls/hr IV.SIG Q24H JONATHON Rx#:[id number] Prostaphlin Inj 2 GM In NS Inj 300 / 300 400 / 400 100 ML @ 200 mls/hr IV.SIG Q4H JONATHON Rx#:[id number] fentaNYL 10 mcg/mL Premix Drip 50 / 50 2,500 mcg In 250 ml @ 50 MCG/HR 5 mls/hr IV.SIG TITRATE PRN Rx #:[id number] Tube Feeding 713 / 713 Water Bolus Amount 200 / 200 Output: Urine 1250 / 1250 Urine Amount (Catheter) 700 / 700 Indwelling Urethral Catheter 700 / 700 Other: Date of Last Bowel Movement 11/07/17 11/08/17 11/07/17 # Bowel Movements 1 # Incontinent Bowel Movements 2 Narrative: now back on vent sedted pupil = - Urinary Catheter Management Indwelling Urethral Catheter Cath placed during this visit: no Reason for continuing: Hourly intake/output Straight Cath placed during this visit: no Reason for continuing: Hourly intake/output Objective Laboratory Results - last 24 hr 11/04/17 11/07/17 11/08/17 06:20 22:15 04:11 WBC 7.4 RBC 3.24 L Hgb 9.2 L Hct 27.6 L MCV 85.0 MCH 28.5 MCHC 33.5 RDW 13.2 Plt Count 168 MPV 10.4 PT INR Puncture Site Left radial Patient Temperature 98.6 O2 Saturation 97 ABG pH 7.55 H* ABG pCO2 28 L ABG pO2 119 ABG HCO3 25 ABG O2 Content 14.1 ABG Base Excess 2.4 H ABG Methemoglobin 1.1 Eliel Test Present Hemoglobin 10.2 L Carboxyhemoglobin 1.0 O2 Delivery Device Ventilator Vent Setting Belevel Inspired O2 100 Critical Value Yes Sodium Potassium Chloride Carbon Dioxide Anion Gap BUN Creatinine Estimated GFR Random Glucose Calcium Phosphorus Magnesium Total Bilirubin AST ALT Alkaline Phosphatase Total Protein Albumin Ur Opiates Confirm Positive A Ur Buprenorphine Negative Ur Heroin Screen Negative Urine Oxycodone Negative Ur Methadone Negative U Hydromorphone Confirm Negative Urine Fentanyl Positive A Urine Gabapentin Negative Ur Phencyclidine (PCP) Negative Urine MDPV Negative Ur MDMA & Metabolites Negative U Cannabinoids Confirm Positive A Ur Synth THC (K2) Negative 11/08/17 11/08/17 04:11 04:11 WBC RBC Hgb Hct MCV MCH MCHC RDW Plt Count MPV PT 11.3 INR 1.1 Puncture Site Patient Temperature O2 Saturation ABG pH ABG pCO2 ABG pO2 ABG HCO3 ABG O2 Content ABG Base Excess ABG Methemoglobin Eliel Test Hemoglobin Carboxyhemoglobin O2 Delivery Device Vent Setting Inspired O2 Critical Value Sodium 148 H Potassium 4.1 Chloride 114 H Carbon Dioxide 25.3 Anion Gap 9 BUN 20 H Creatinine 1.37 H Estimated GFR 60 L Random Glucose 105 Calcium 7.9 L Phosphorus 3.4 Magnesium 2.4 Total Bilirubin 1.0 AST 24 ALT 12 Alkaline Phosphatase 70 Total Protein 7.6 Albumin 1.7 L Ur Opiates Confirm Ur Buprenorphine Ur Heroin Screen Urine Oxycodone Ur Methadone U Hydromorphone Confirm Urine Fentanyl Urine Gabapentin Ur Phencyclidine (PCP) Urine MDPV Ur MDMA & Metabolites U Cannabinoids Confirm Ur Synth THC (K2) Microbiology 11/07/17 06:20 Aerobic Blood Culture - Preliminary Blood - Peripheral No growth in 1 day Anaerobic Blood Culture - Preliminary No growth in 1 day 11/06/17 05:39 Aerobic Blood Culture - Final Blood - Peripheral Staphylococcus aureus Anaerobic Blood Culture - Preliminary No growth in 2 days 11/05/17 04:22 Aerobic Blood Culture - Final Blood - Peripheral Staphylococcus aureus Anaerobic Blood Culture - Preliminary No growth in 3 days 11/06/17 08:55 Gram Stain - Final Sputum - Endotracheal Sputum Culture - Final Staphylococcus aureus 11/05/17 11:40 Gram Stain - Final Sputum - Endotracheal Sputum Culture - Final Staphylococcus aureus 11/05/17 01:34 Urine Culture - Final Catheterized Urine No growth in 48 hours Review/Management - Review/Management Plan: imp mri mult bilat cva inc large left mca cva recheck ct make sure no mass effect yest large but no mass effect recheck today eeg neg aortic valve endocarditis 11/08/17 ct stable i dw mom px aphasia rhp stable neuro will need rehab eventually
[2017-11-09] MEDS: Propofol 1000 mg/100 ml Inj 1,000 MG/100 ML BOTTLE IV.CONT PRN ×4 (00:12→21:10)
[2017-11-09] MEDS: Oral Hygiene Kit OROPHARYNG SCH ×4 (00:13→15:35)
[2017-11-09] MEDS: Chlorhexidine Gluconate 2% 1 Pack (2 Cloths) TOPICAL SCH (04:00)
[2017-11-09 04:49] LABS: Hemoglobin 9.4 gm/dL (13.0-17.0); Mean Corpuscular HGB Conc 33.7 % (32.0-36.0); Mean Platelet Volume 10.3 fL (7.0-11.0); Platelet Count 177 th/mm3 (150-450); Red Blood Count 3.25 mil/mm3 (4.50-5.90); Red Cell Distribution Width 13.5 % (11.6-17.2); White Blood Count 6.9 th/mm3 (4.0-11.0)
[2017-11-09 04:56] LABS: INR 1.1 Ratio; Prothrombin Time 10.7 sec (9.8-11.6)
[2017-11-09 05:12] LABS: Albumin 1.8 g/dL (3.4-5.0); Anion Gap 6 meq/L (5-15); Aspartate Aminotransferase 39 U/L (15-37); Blood Urea Nitrogen 25 mg/dL (7-18); Calcium 7.7 mg/dL (8.5-10.1); Chloride 115 meq/L (98-107); Glomerular Filtration Rate 65 mL/min (>89); Glucose,Random 139 mg/dL (74-106); Magnesium 2.6 mg/dL (1.5-2.5); Potassium 4.3 meq/L (3.5-5.1); Sodium 148 meq/L (136-145)
[2017-11-09 05:13] LABS: Alanine Aminotransferase 22 U/L (12-78)
[2017-11-09 05:15] LABS: Alkaline Phosphatase 72 U/L (45-117); Total Protein 8.5 g/dL (6.4-8.2)
[2017-11-09] MEDS: Pantoprazole Inj 40 MG Vial IV.PUSH SCH (08:56)
[2017-11-09] MEDS: Sod Chloride 0.9% Inj 1,000 ML IV.CONT SCH ×2 (08:57→17:34)
[2017-11-09] MEDS: Chlorhexidine 0.12% Oral Kit 15 ML UDC OROPHARYNG SCH ×2 (08:57→20:36)
--- NOTE | 2017-11-09 10:02 | P.PNID ---
Subjective Remarks: Patient is a 31-year-old male, who initially presented to [facility] emergency room October 30 complaining of 3 day history of headache. He gave a history of IV drug use. He was not febrile during that visit. WBC was normal. He underwent CT of the brain which was negative. Also underwent MRI of the thoracic and lumbar spine which were both negative for any infection. 2 blood cultures were done at that time and he was discharged. He came back to the hospital after his friends found him on the kitchen floor. He was reportedly unable to move his right side. And he was also noted to have some difficulty speaking. He remains afebrile. His white count is elevated. His CT of the head is now showing some findings in the right parietal area, as well as faint subarachnoid hemorrhage. CTA of the neck is negative. He has evidence of right-sided weakness, as well as expressive aphasia. The 2 blood cultures done on his ED visit is now reported as growing MSSA. Infectious disease consultation has been requested to evaluate the patient. Notes reviewed Low grade temps overnight Sedated on the vent BC (+) 11/04-11/07 Sputum with MSSA WBC normal Platelets improving BP ok CTS evaluation noted - not a surgical candidate MRI head, with multiple areas of infarct CT head repeat, with edema in temporal lobe CXR with increased infiltrates Echocardiogram: The left ventricular systolic function is normal with an estimated ejection fraction in the range of 60-65%. Trace mitral valve regurgitation. Large vegetation noted on the aortic valve (1.7cm x 1.0cm) Mild obstruction of the aortic valve due to vegetation with a mean gradient of 11 mmHg Severe eccentric aortic regurgitation There is trace tricuspid valve regurgitation. Antibiotics: Oxacillin Rifampin Levaquin Lines: R central line Past Medical History: Diabetes Hypertension IVDU Allergies/Adverse Reactions: Allergies No Known Allergies Allergy (Unverified 10/30/17 21:54) Objective Vital Signs 11/08/17 12:00 11/08/17 15:51 11/08/17 16:00 Temperature 98.3 F 98.5 F Pulse Rate 93 H 90 Respiratory Rate 11 L 15 22 Blood Pressure 141/65 H 135/63 Pulse Oximetry 100 99 11/08/17 20:00 11/08/17 20:28 11/09/17 00:00 Temperature 99.4 F 100.7 F H Pulse Rate 94 H 90 Respiratory Rate 21 22 19 Blood Pressure 152/66 H 156/67 H Pulse Oximetry 100 100 100 11/09/17 01:12 11/09/17 04:00 11/09/17 04:09 Temperature 100.4 F H Pulse Rate 90 Respiratory Rate 21 25 H 19 Blood Pressure 157/68 H Pulse Oximetry 100 100 100 11/09/17 08:00 11/09/17 08:14 Temperature 98.1 F Pulse Rate 85 Respiratory Rate 17 21 Blood Pressure 141/72 H Pulse Oximetry 100 100 Intake & Output 11/08/17 11/09/17 11/09/17 18:59 06:59 18:59 Intake Total 1770 / 1770 1300 / 1300 100 / 100 Output Total 525 / 525 500 / 500 Balance 1245 / 1245 800 / 800 100 / 100 Weight 86.5 kg Intake: IV 1450 / 1450 1300 / 1300 100 / 100 Diprivan 1000 mg/100 ml Inj 1, 300 / 300 100 / 100 000 mg In 100 ml @ 5 MCG/KG/MIN 2.448 mls/hr IV.CONT TITRATE PRN Rx#:[id number] NS Inj 1,000 ML @ 70 mls/hr IV. 700 / 700 1000 / 1000 CONT .[id number] JONATHON Rx#:[id number] Levaquin 750 mg Premix Inj 150 150 / 150 ML @ 100 mls/hr IV.SIG Q24H JONATHON Rx#:[id number] Prostaphlin Inj 2 GM In NS Inj 300 / 300 200 / 200 100 / 100 100 ML @ 200 mls/hr IV.SIG Q4H JONATHON Rx#:[id number] Tube Feeding 320 / 320 Output: Urine 500 / 500 Urine Amount (Catheter) 525 / 525 Condom 525 / 525 Other: Date of Last Bowel Movement 11/07/17 11/08/17 11/08/17 # Bowel Movements 0 11/07/17 06:20 Blood - Peripheral Aerobic Blood Culture - Preliminary gram positive cocci 11/07/17 06:20 Blood - Peripheral Anaerobic Blood Culture - Preliminary No growth in 1 day 11/06/17 05:39 Blood - Peripheral Aerobic Blood Culture - Final Staphylococcus aureus 11/06/17 05:39 Blood - Peripheral Anaerobic Blood Culture - Preliminary No growth in 2 days 11/05/17 04:22 Blood - Peripheral Aerobic Blood Culture - Final Staphylococcus aureus 11/05/17 04:22 Blood - Peripheral Anaerobic Blood Culture - Preliminary No growth in 3 days 11/08/17 10:49 Blood - Peripheral Aerobic Blood Culture - Pending 11/08/17 10:49 Blood - Peripheral Anaerobic Blood Culture - Pending 11/06/17 08:55 Sputum - Endotracheal Gram Stain - Final 11/06/17 08:55 Sputum - Endotracheal Sputum Culture - Final Staphylococcus aureus 11/05/17 11:40 Sputum - Endotracheal Gram Stain - Final 11/05/17 11:40 Sputum - Endotracheal Sputum Culture - Final Staphylococcus aureus 11/05/17 01:34 Catheterized Urine Urine Culture - Final No growth in 48 hours 11/04/17 06:45 Blood - Peripheral Aerobic Blood Culture - Final Staphylococcus aureus 11/04/17 06:45 Blood - Peripheral Anaerobic Blood Culture - Final Staphylococcus aureus 11/04/17 06:40 Blood - Peripheral Aerobic Blood Culture - Final Staphylococcus aureus 11/04/17 06:40 Blood - Peripheral Anaerobic Blood Culture - Final Staphylococcus aureus Lab - Hematology Results 11/08/17 11/09/17 04:11 04:30 WBC 7.4 6.9 RBC 3.24 L 3.25 L Hgb 9.2 L 9.4 L Hct 27.6 L 28.0 L MCV 85.0 86.0 MCH 28.5 29.0 MCHC 33.5 33.7 RDW 13.2 13.5 Plt Count 168 177 MPV 10.4 10.3 Lab - Chemistry Results 11/08/17 11/09/17 04:11 04:30 Sodium 148 H 148 H Potassium 4.1 4.3 Chloride 114 H 115 H Carbon Dioxide 25.3 27.0 Anion Gap 9 6 BUN 20 H 25 H Creatinine 1.37 H 1.27 Estimated GFR 60 L 65 L Random Glucose 105 139 H Calcium 7.9 L 7.7 L Phosphorus 3.4 4.0 Magnesium 2.4 2.6 H Total Bilirubin 1.0 0.6 AST 24 39 H ALT 12 22 Alkaline Phosphatase 70 72 Total Protein 7.6 8.5 H D Albumin 1.7 L 1.8 L Imaging: ITS Impressions Head CTA 11/04/17 05:39 CONCLUSION: 1. Patient is left vertebral dominant. 2. Otherwise, intracranial vessels are all patent without embolic or aneurysmal disease. Neck CTA 11/04/17 05:39 CONCLUSION: 1. Patient is left vertebral dominant. 2. Otherwise, arch and cervical vessels are patent throughout. Head MRI 11/04/17 06:36 CONCLUSION: 1. Acute infarcts as described above suggesting embolic occlusion as described above. Largest areas in the left posterior sylvian region. Head CT 11/06/17 07:54 CONCLUSION: 1. Persistent large area of cytotoxic edema involving the left temporoparietal lobe as well as focal edema involving the head of the left caudate nucleus consistent with known acute infarction involving the left middle cerebral artery. There is a small area of edema involving the right posterior parietal occipital lobe which is stable. 2. No acute hemorrhage, midline shift, extra-axial bleed or ventriculomegaly. Chest X-Ray 11/07/17 21:17 CONCLUSION: Diffuse pulmonary consolidation likely representing diffuse processes such as edema. This is clearly worsened since the prior exam. Physical Exam: GENERAL: Sedated on the vent SKIN: Warm and dry. No generalized rash Embolic lesions better HEAD: Atraumatic. Normocephalic. No temporal wasting, or tenderness. EYES: [place] conjunctiva. Has petechia on L conjunctiva. Pupils equal, round and reactive to light. No scleral icterus. No injection or drainage. EARS, NOSE AND THROAT: Nose without bleeding or purulent nasal discharge. No sinus tenderness. Mucous membranes pink and moist. NECK: Trachea midline. Supple and not tender, no meningeal signs CARDIOVASCULAR: Regular rate and rhythm. RESPIRATORY: Decreased breath sounds bila ABDOMEN: Soft, nondistended. Bowel sounds present and normoactive. No reaction to palpation. EXTREMITIES: No clubbing, cyanosis, or edema. No joint effusion. 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
--- NOTE | 2017-11-09 10:27 | P.PNNEU ---
Subjective Subjective Comments: on vent sedated Active Medications: Active Medications Acetaminophen (Tylenol) 650 mg PO Q6H PRN PRN Reason: TEMPERATURE > 101 F Last Admin: 11/08/17 03:21 Dose: 650 mg Albuterol (Duoneb Neb (Prn)) 1 ampul NEB Q2HR NEB PRN PRN Reason: WHEEZING Last Admin: 11/06/17 12:12 Dose: 1 ampul Chlorhexidine Gluconate (Peridex 0.12% Oral Kit) 15 ml OROPHARYNG BID@0800, 2000 [facility] Last Admin: 11/09/17 08:57 Dose: 15 ml Chlorhexidine Gluconate (Chlorhexidine 2% Cloth) 3 pack TOPICAL DAILY@0400 JONATHON Stop: 11/10/17 03:59 Last Admin: 11/09/17 04:00 Dose: 3 pack Chlorhexidine Gluconate (Chlorhexidine 2% Cloth) 3 pack TOPICAL DAILY@0400 PRN PRN Reason: Extra cloth needed Stop: 11/10/17 03:59 Last Admin: 11/08/17 03:07 Dose: 3 pack Flumazenil (Romazecon Inj) 0.2 mg IV.PUSH Q1M PRN PRN Reason: OVERSEDATION Haloperidol Lactate (Haldol Inj) 1 mg IV.PUSH Q15M PRN PRN Reason: for severe agitation Midazolam HCl (Versed Inj) 50 mg in 50 mls @ 2 mls/hr IV.CONT TITRATE PRN; Protocol PRN Reason: Per Protocol Last Titration: 11/05/17 15:30 Dose: 0 mg/hr, 0 mls/hr Levofloxacin/Dextrose (Levaquin 750 Mg Premix Inj) 150 mls @ 100 mls/hr IV.SIG Q24H [facility] Stop: 11/11/17 23:00 Last Infusion: 11/08/17 17:08 Dose: Infused Fentanyl (Fentanyl 10 Mcg/Ml Premix Drip) 2,500 mcg in 250 mls @ 5 mls/hr IV.SIG TITRATE PRN; Protocol PRN Reason: Per Protocol Last Admin: 11/07/17 21:35 Dose: 50 mcg/hr, 5 mls/hr Propofol (Diprivan 1000 Mg/100 Ml Inj) 1,000 mg in 100 mls @ 2.448 mls/hr IV.CONT TITRATE PRN; Protocol PRN Reason: Per Protocol Last Admin: 11/09/17 00:12 Dose: 35 mcg/kg/min, 17.14 mls/hr Sodium Chloride (Ns Inj) 1,000 mls @ 70 mls/hr IV.CONT .[id number] [facility] Last Admin: 11/09/17 08:57 Dose: 70 mls/hr Magnesium Sulfate Inj 4 gm/ (Sodium Chloride) 100 mls @ 50 mls/hr IV.SIG UNSCH PRN PRN Reason: For Magnesium 0.9 - 1.1 mg/dL Magnesium Sulfate Inj 2 gm/ (Sodium Chloride) 100 mls @ 50 mls/hr IV.SIG UNSCH PRN PRN Reason: For Magnesium 1.2 - 1.6 mg/dL Potassium Chloride (Kcl 40 Meq Premix Inj) 40 meq in 100 mls @ 25 mls/hr IV.SIG Q2H PRN PRN Reason: For Potassium 2.8 - 3.2 mEq/L Potassium Chloride (Kcl 20 Meq Premix Inj) 20 meq in 100 mls @ 50 mls/hr IV.SIG Q2H PRN PRN Reason: For Potassium 3.3 - 3.5 mEq/L Last Infusion: 11/05/17 07:00 Dose: Infused Potassium Chloride (Kcl 40 Meq Premix Inj) 40 meq in 100 mls @ 25 mls/hr IV.SIG UNSCH PRN PRN Reason: For Potassium 3.3 - 3.5 mEq/L Last Infusion: 11/06/17 02:06 Dose: Infused Potassium Chloride (Kcl 20 Meq Premix Inj) 20 meq in 100 mls @ 50 mls/hr IV.SIG Q2H PRN PRN Reason: For Potassium 2.8 - 3.2 mEq/L Last Infusion: 11/05/17 07:00 Dose: Infused Potassium Phosphate 30 mmol/ (Sodium Chloride) 260 mls @ 42 mls/hr IV.SIG UNSCH PRN PRN Reason: SEE LABEL COMMENTS Sodium Phosphate 30 mmol/ (Sodium Chloride) 260 mls @ 42 mls/hr IV.SIG UNSCH PRN PRN Reason: For Phosphorus < 2.5 mg/dL Oxacillin Sodium 2 gm/ Sodium (Chloride) 100 mls @ 200 mls/hr IV.SIG Q4H [facility] Last Admin: 11/09/17 08:56 Dose: 200 mls/hr Lorazepam (Ativan) 1 mg PO Q4H PRN PRN Reason: for CIWA 8-10 Lorazepam (Ativan) 2 mg PO Q2H PRN PRN Reason: for CIWA 11-14 Lorazepam (Ativan Inj) 2 mg IV.PUSH Q2H PRN PRN Reason: for CIWA 11-14 Lorazepam (Ativan Inj) 2 mg IV.PUSH Q15M PRN PRN Reason: for CIWA > 20 Last Admin: 11/07/17 18:37 Dose: 2 mg Lorazepam (Ativan Inj) 1 mg IV.PUSH Q4H PRN PRN Reason: for CIWA 8-10 Lorazepam (Ativan Inj) 2 mg IV.PUSH Q1H PRN PRN Reason: for CIWA 15-20 Magnesium Oxide (Mag-Ox) 800 mg PO UNSCH PRN PRN Reason: For Magnesium 1.2 - 1.6 mg/dL Ondansetron HCl (Zofran Odt) 4 mg PO Q6H PRN PRN Reason: NAUSEA OR VOMITING Pantoprazole Sodium (Protonix Inj) 40 mg IV.PUSH DAILY [facility] Last Admin: 11/09/17 08:56 Dose: 40 mg Potassium Bicarb/Potassium Chloride (K-Lyte Cl Eff) 50 meq PO ONCE [facility] Last Admin: 11/04/17 21:31 Dose: 50 meq Potassium Bicarb/Potassium Chloride (K-Lyte Cl Eff) 50 meq PO UNSCH PRN PRN Reason: For Potassium 3.3 - 3.5 mEq/L Potassium Phosphate (K-Phos Original) 2,000 mg PO UNSCH PRN PRN Reason: SEE LABEL COMMENTS Potassium Phosphate (K-Phos Original) 2,000 mg PO Q4H PRN PRN Reason: Phosphorus Less Than 2.5 mg/dL Rifampin (Rifampin) 300 mg PO Q12HR [facility] Last Admin: 11/09/17 08:56 Dose: 300 mg Sodium Chloride (Ns Flush) 2 ml IV.FLUSH BID [facility] Last Admin: 11/09/17 08:57 Dose: 2 ml Sodium Chloride (Ns Flush) 2 ml IV.FLUSH PRN PRN PRN Reason: FLUSH AFTER USING IV ACCESS Allergies/Adverse Reactions: Allergies Allergy/AdvReac Type Severity Reaction Status Date / Time No Known Allergies Allergy Unverified 10/30/17 21:54 Physical Exam Vital signs: Vital Signs 11/08/17 12:00 11/08/17 15:51 11/08/17 16:00 Temperature 98.3 F 98.5 F Pulse Rate 93 H 90 Respiratory Rate 11 L 15 22 Blood Pressure 141/65 H 135/63 Pulse Oximetry 100 99 11/08/17 20:00 11/08/17 20:28 11/09/17 00:00 Temperature 99.4 F 100.7 F H Pulse Rate 94 H 90 Respiratory Rate 21 22 19 Blood Pressure 152/66 H 156/67 H Pulse Oximetry 100 100 100 11/09/17 01:12 11/09/17 04:00 11/09/17 04:09 Temperature 100.4 F H Pulse Rate 90 Respiratory Rate 21 25 H 19 Blood Pressure 157/68 H Pulse Oximetry 100 100 100 11/09/17 08:00 11/09/17 08:14 Temperature 98.1 F Pulse Rate 85 Respiratory Rate 17 21 Blood Pressure 141/72 H Pulse Oximetry 100 100 Intake & Output 11/08/17 11/09/17 11/09/17 18:59 06:59 18:59 Intake Total 1770 / 1770 1300 / 1300 100 / 100 Output Total 525 / 525 500 / 500 Balance 1245 / 1245 800 / 800 100 / 100 Weight 86.5 kg Intake: IV 1450 / 1450 1300 / 1300 100 / 100 Diprivan 1000 mg/100 ml Inj 1, 300 / 300 100 / 100 000 mg In 100 ml @ 5 MCG/KG/MIN 2.448 mls/hr IV.CONT TITRATE PRN Rx#:[id number] NS Inj 1,000 ML @ 70 mls/hr IV. 700 / 700 1000 / 1000 CONT .[id number] JONATHON Rx#:[id number] Levaquin 750 mg Premix Inj 150 150 / 150 ML @ 100 mls/hr IV.SIG Q24H [facility]ONATHON Rx#:[id number] Prostaphlin Inj 2 GM In NS Inj 300 / 300 200 / 200 100 / 100 100 ML @ 200 mls/hr IV.SIG Q4H JONATHON Rx#:[id number] Tube Feeding 320 / 320 Output: Urine 500 / 500 Urine Amount (Catheter) 525 / 525 Condom 525 / 525 Other: Date of Last Bowel Movement 11/07/17 11/08/17 11/08/17 # Bowel Movements 0 Narrative: pupil = no rxt pain sedated fully - Urinary Catheter Management Indwelling Urethral Catheter Cath placed during this visit: no Reason for continuing: Not indwelling catheter Condom Cath placed during this visit: no Reason for continuing: Not indwelling catheter Straight Cath placed during this visit: no Reason for continuing: Not indwelling catheter Objective Laboratory Results - last 24 hr 11/09/17 11/09/17 11/09/17 04:30 04:30 04:30 WBC 6.9 RBC 3.25 L Hgb 9.4 L Hct 28.0 L MCV 86.0 MCH 29.0 MCHC 33.7 RDW 13.5 Plt Count 177 MPV 10.3 PT 10.7 INR 1.1 Sodium 148 H Potassium 4.3 Chloride 115 H Carbon Dioxide 27.0 Anion Gap 6 BUN 25 H Creatinine 1.27 Estimated GFR 65 L Random Glucose 139 H Calcium 7.7 L Phosphorus 4.0 Magnesium 2.6 H Total Bilirubin 0.6 AST 39 H ALT 22 Alkaline Phosphatase 72 Total Protein 8.5 H D Albumin 1.8 L Microbiology 11/07/17 06:20 Aerobic Blood Culture - Preliminary Blood - Peripheral gram positive cocci Anaerobic Blood Culture - Preliminary No growth in 1 day 11/06/17 05:39 Aerobic Blood Culture - Final Blood - Peripheral Staphylococcus aureus Anaerobic Blood Culture - Preliminary No growth in 2 days 11/05/17 04:22 Aerobic Blood Culture - Final Blood - Peripheral Staphylococcus aureus Anaerobic Blood Culture - Preliminary No growth in 3 days 11/06/17 08:55 Gram Stain - Final Sputum - Endotracheal Sputum Culture - Final Staphylococcus aureus Review/Management - Review/Management Plan: imp mri mult bilat cva inc large left mca cva recheck ct make sure no mass effect yest large but no mass effect recheck today eeg neg aortic valve endocarditis 11/08/17 ct stable i dw mom px aphasia rhp stable neuro will need rehab eventually 11/09/17 no change i await sedation dc
--- NOTE | 2017-11-09 11:46 | P.PNCC ---
Subjective Subjective Remarks/Hospital Course: This is a 31yM who recently presented to the emergency department on 10/30 with subjective fevers and back pain. At that time he was given an MRI of the spine due to his IV drug use and concern for endocarditis. His MRI spine was negative and he was discharged home. Blood cultures that were drawn at that time returned 4 out of 4 bottles with MSSA. Patient was attempted to be contacted at his home to return for medical attention, but he was unable to be contacted. He represents today with acute altered mental status and was found on the floor of his apartment. He is aphasic and has significant right-sided hemiparesis/weakness. CT brain demonstrates a small amount of subarachnoid blood and small areas of decreased density suggestive of acute infarcts. MRI confirms multiple small areas of infarct. I evaluated the patient and he is quite altered and aphasic and no additional information is available from him. I performed bedside critical care ultrasonography which demonstrates a large mobile mass on the aortic valve with associated severe aortic regurgitation. No pericardial effusion. In addition all this, the patient has a new finding of an INR of 9.8 as well as an elevated salicylate level of 28. Given there is recent community history seated to suggest that some of the IV drugs in the area have been contaminated with rapid poison and or Coumadin/warfarin, I have a high degree of suspicion that the patient may have injected contaminated IV drugs. I have contacted poison control who is following along. We have ordered 4 units of FFP emergently to be released to the patient. We have called pharmacy and due to a national shortage of the drug, we do not have any K Centra available. I have also ordered FEIBA as an alternative to K Centra. 11/05: INR has been corrected to normal. Repeat head CT shows no evidence of additional bleed. Noteworthy on head CT is new edema involving most of the temporal lobe on the left side, arising in the area of ischemic infarct. Other smaller defects are noted bilaterally. Blood cultures are growing MSSA, consistent with his IV drug use and aortic valve vegetation. Bilateral lung infiltrates noted on today's chest x-ray consistent with prehospital aspiration. 11/06: Tolerating spontaneous breathing trial with acceptable pressure support but oxygenation markedly impaired due to prehospital aspiration pneumonitis. No change in neurologic status. Cultures continued to be positive for staph aureus. 11/07: Continues to tolerate spontaneous breathing trials with acceptable pressure support. Minimal change in neurologic status and I cannot get him to follow any commands. Pre-albumin surprisingly low at 11, continue aggressive nutritional support. 11/08: Extubated himself yesterday morning and tolerated spontaneous breathing with supplemental oxygen during the day. In the early evening he became unable to protect his airway and his respiratory effort became much weaker. He required endotracheal intubation and mechanical ventilation thereafter. While extubated he did respond to simple commands including moving his left hand. He did repeat simple 2 and 3 word statements. The chest x-ray following reintubation is consistent with heart failure although the hemodynamics belie that, more consistent with an inflammatory process. 11/09: Tolerating ongoing diuresis. Gas exchange improving. Difficult to assess while sedated we will aim for re-extubation. Objective Vital Signs / I&O: Vital Signs 11/08/17 12:00 11/08/17 15:51 11/08/17 16:00 Temperature 98.3 F 98.5 F Pulse Rate 93 H 90 Respiratory Rate 11 L 15 22 Blood Pressure 141/65 H 135/63 Pulse Oximetry 100 99 11/08/17 20:00 11/08/17 20:28 11/09/17 00:00 Temperature 99.4 F 100.7 F H Pulse Rate 94 H 90 Respiratory Rate 21 22 19 Blood Pressure 152/66 H 156/67 H Pulse Oximetry 100 100 100 11/09/17 01:12 11/09/17 04:00 11/09/17 04:09 Temperature 100.4 F H Pulse Rate 90 Respiratory Rate 21 25 H 19 Blood Pressure 157/68 H Pulse Oximetry 100 100 100 11/09/17 08:00 11/09/17 08:14 11/09/17 09:20 Temperature 98.1 F Pulse Rate 85 Respiratory Rate 17 21 17 Blood Pressure 141/72 H Pulse Oximetry 100 100 100 11/09/17 10:33 11/09/17 11:34 Temperature Pulse Rate Respiratory Rate Blood Pressure Pulse Oximetry 100 100 Intake & Output 11/08/17 11/09/17 11/09/17 18:59 06:59 18:59 Intake Total 1770 / 1770 1300 / 1300 200 / 200 Output Total 525 / 525 500 / 500 Balance 1245 / 1245 800 / 800 200 / 200 Weight 86.5 kg Intake: IV 1450 / 1450 1300 / 1300 200 / 200 Diprivan 1000 mg/100 ml Inj 1, 300 / 300 100 / 100 000 mg In 100 ml @ 5 MCG/KG/MIN 2.448 mls/hr IV.CONT TITRATE PRN Rx#:[id number] NS Inj 1,000 ML @ 70 mls/hr IV. 700 / 700 1000 / 1000 CONT .[id number] JONATHON Rx#:[id number] Levaquin 750 mg Premix Inj 150 150 / 150 ML @ 100 mls/hr IV.SIG Q24H [facility]ONATHON Rx#:[id number] Prostaphlin Inj 2 GM In NS Inj 300 / 300 200 / 200 200 / 200 100 ML @ 200 mls/hr IV.SIG Q4H [facility]ONATH[facility] Rx#:[id number] Tube Feeding 320 / 320 Output: Urine 500 / 500 Urine Amount (Catheter) 525 / 525 Condom 525 / 525 Other: Date of Last Bowel Movement 11/07/17 11/08/17 11/08/17 # Bowel Movements 0 Result Diagrams: 11/09/17 04:30 11/09/17 04:30 Objective Remarks: - Imaging Impressions Chest X-Ray 11/04/17 05:39 CONCLUSION: 1. Patchy left perihilar and right basilar airspace disease with possible developing right-sided effusion. 2. Lungs are hypoinflated. Head CT 11/04/17 05:39 CONCLUSION: 1. There appear to be new, subcortical white matter infarct posteriorly in the right parietal lobe. 2. There also appears to be some faint subarachnoid hemorrhage over the high parietal convex [place] bilaterally 3. No fractures, Report was called by [ Dr. Ellis to Dr. Sloan in the ED at 0614 hours] Head CTA 11/04/17 05:39 CONCLUSION: 1. Patient is left vertebral dominant. 2. Otherwise, intracranial vessels are all patent without embolic or aneurysmal disease. Neck CTA 11/04/17 05:39 CONCLUSION: 1. Patient is left vertebral dominant. 2. Otherwise, arch and cervical vessels are patent throughout. PE: GENERAL: Young male, reintubated and on mechanical ventilation HEENT: Normocephalic. Atraumatic. Pupils 2 mm, equal, round, reactive, conjugate. Mucous membranes are moist NECK: Trachea is midline. Orotracheal route intubation. CHEST: Equal chest rise. Nasal cannula oxygen. Diffuse crackles, no wheezes. CARDIOVASCULAR: Tachycardia, regular rhythm. Sinus. No JVD. ABDOMEN: Soft, nontender, nondistended. No guarding. Bowel sounds present. MUSCULOSKELETAL: Pulses dp 2+. No peripheral edema. Multiple linear scars over the bilateral upper and lower extremities consistent with needle fan. Positive [place] lesions. NEUROLOGICAL: RASS -1. Musculoskeletal strength on the right is 1/5 at best in both the upper and lower extremities. Musculoskeletal strength on the left is 4 out of 5. Withdraws left side extremities to noxious stimulation. Intermittent left hand grasp to command, unable to check today. 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 Patient remains very critically ill. We will need to admit him to the ICU for frequent neuro monitoring, emergent reversal of coagulopathy, and management of his multiorgan system failure. Worsening pulmonary function manifested as diffuse bilateral lung infiltrates and dependence on mechanical ventilation. Plan by systems: Neurologic: Acute 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 Acute aphasia Right sided weakness Hemorrhagic Conversion Subarachnoid hemorrhage IV drug abuse - frequent neuro checks - avoid long-acting sedatives - MRI brain - neurosurgery consultation - EEG: no evidence of ictal activity -Worsening edema left temporal lobe on CAT scan. -Spoke simple 2 and 3 word sentences yesterday following extubation. Appears confused. Respiratory: Hypoxemic respiratory failure Prehospital aspiration pneumonitis -Required intubation for inability to control airway last night. -Elevated PEEP to 12 required to create oxygenation greater than 90%. -Able to reduce PEEP to 5 this morning. -Converted to airway pressure release ventilation with good oxygen diffusion. - Cardiovascular: Mixed septic/cardiogenic shock Severe aortic regurgitation Large aortic valve vegetation 1x1.7cm Mild aortic stenosis from vegetation NS @ 50cc/hr, mild AK I Renal: Acute kidney injury - place fontaine - monitor uop - secondary to poor perfusion from cardiac output and severe sepsis -- Strict I/Os FEN/GI: Lactic Acidosis Acute protein calorie malnutrition- severe, temporal muscle wasting Start tube feedings ICU electrolyte protocol mivf trend lactate Although radiographic picture would disagree his renal function appears to indicate prerenal azotemia. Heme/ID: Severe coagulopathy: suspected contaminated iv drugs with Rat Poison/Coumadin/ Warfarin Salicylate Poisoning: suspected contaminated IV drugs - recent history is absent for coagulopathy - stat 4 ffp and recheck - vit K 10 SQ - poison control involved - basic UDS +opiates and canabinoids. detailed UDS still pending - there have been reports of contaminated bath salts. in addition to detailed UDS, specific Bath Salts metabolites sent to reference lab. - salicylate levels downtrending. -INR now corrected after Feiba. Endocrine: -- SSI Prophylaxis: GI Prophylaxis protonix DVT Prophylaxis -- SCDs holding pharmacologic DVT prophylaxis due to risks of hemorrhagic conversion Lines: marito fontaine Overall impression: This gentleman is critically ill with systemic sepsis and organ dysfunction. Due to deteriorating status he required intubation and mechanical ventilation last night which will need to be continued. This is clearly bacterial endocarditis involving the [place] aortic valve and associated with embolic brain infarcts. His prognosis is guarded at best. We will continue to hold DVT prophylaxis anticoagulation until repeat CAT scan confirms no additional bleeding. His neurologic status remains unstable. He will clearly have a profound correction neurological disability At this juncture it looks like he will require a tracheostomy but would certainly like to defer that should he become stable enough to tolerate a sternotomy for aortic valve replacement. Bloodstream continues to be positive for staph. Low-level sepsis present. Critical care time 38 minutes aside from procedures.
[2017-11-09] MEDS: fentaNYL 10 mcg/mL Premix Drip 2,500 MCG/250 ML BAG IV.SIG PRN (15:28)
[2017-11-10] MEDS: Oral Hygiene Kit OROPHARYNG SCH ×4 (00:23→15:50)
[2017-11-10] MEDS: Propofol 1000 mg/100 ml Inj 1,000 MG/100 ML BOTTLE IV.CONT PRN ×5 (01:49→21:36)
[2017-11-10 04:36] LABS: Hematocrit 26.6 % (39.0-51.0); Hemoglobin 8.9 gm/dL (13.0-17.0); Mean Corpuscular HGB Conc 33.5 % (32.0-36.0); Mean Corpuscular Hemoglobin 28.8 pg (27.0-34.0); Mean Corpuscular Volume 85.9 fL (80.0-100.0); Platelet Count 181 th/mm3 (150-450); Red Blood Count 3.09 mil/mm3 (4.50-5.90); Red Cell Distribution Width 13.5 % (11.6-17.2); White Blood Count 7.2 th/mm3 (4.0-11.0)
[2017-11-10] MEDS: Sod Chloride 0.9% Inj 1,000 ML IV.CONT SCH ×2 (04:43→18:49)
[2017-11-10 04:45] LABS: INR 1.1 Ratio; Prothrombin Time 10.7 sec (9.8-11.6)
[2017-11-10 05:00] LABS: Alanine Aminotransferase 17 U/L (12-78); Albumin 1.6 g/dL (3.4-5.0); Alkaline Phosphatase 61 U/L (45-117); Anion Gap 5 meq/L (5-15); Aspartate Aminotransferase 27 U/L (15-37); Blood Urea Nitrogen 17 mg/dL (7-18); Calcium 7.6 mg/dL (8.5-10.1); Carbon Dioxide 25.9 meq/L (21.0-32.0); Chloride 117 meq/L (98-107); Glomerular Filtration Rate 80 mL/min (>89); Glucose,Random 128 mg/dL (74-106); Magnesium 2.3 mg/dL (1.5-2.5); Phosphorus 2.8 mg/dL (2.5-4.9); Potassium 3.8 meq/L (3.5-5.1); Sodium 148 meq/L (136-145); Total Protein 7.8 g/dL (6.4-8.2)
[2017-11-10] MEDS: Pantoprazole Inj 40 MG Vial IV.PUSH SCH (08:35)
[2017-11-10] MEDS: Chlorhexidine 0.12% Oral Kit 15 ML UDC OROPHARYNG SCH ×2 (08:36→20:02)
--- NOTE | 2017-11-10 11:05 | P.PNID ---
Subjective Remarks: Patient is a 31-year-old male, who initially presented to [facility] emergency room October 30 complaining of 3 day history of headache. He gave a history of IV drug use. He was not febrile during that visit. WBC was normal. He underwent CT of the brain which was negative. Also underwent MRI of the thoracic and lumbar spine which were both negative for any infection. 2 blood cultures were done at that time and he was discharged. He came back to the hospital after his friends found him on the kitchen floor. He was reportedly unable to move his right side. And he was also noted to have some difficulty speaking. He remains afebrile. His white count is elevated. His CT of the head is now showing some findings in the right parietal area, as well as faint subarachnoid hemorrhage. CTA of the neck is negative. He has evidence of right-sided weakness, as well as expressive aphasia. The 2 blood cultures done on his ED visit is now reported as growing MSSA. Infectious disease consultation has been requested to evaluate the patient. Notes reviewed Low grade temps overnight Sedated on the vent Per RN he does follow some commands when sedation lightened BP ok No new (+) BC BC (+) 11/04-11/07 Sputum with MSSA WBC normal Platelets improving CTS evaluation noted - not a surgical candidate MRI head, with multiple areas of infarct CT head repeat, with edema in temporal lobe CXR with increased infiltrates Echocardiogram: The left ventricular systolic function is normal with an estimated ejection fraction in the range of 60-65%. Trace mitral valve regurgitation. Large vegetation noted on the aortic valve (1.7cm x 1.0cm) Mild obstruction of the aortic valve due to vegetation with a mean gradient of 11 mmHg Severe eccentric aortic regurgitation There is trace tricuspid valve regurgitation. Antibiotics: Oxacillin Rifampin Levaquin Lines: R central line Past Medical History: Diabetes Hypertension IVDU Allergies/Adverse Reactions: Allergies No Known Allergies Allergy (Unverified 10/30/17 21:54) Objective Vital Signs 11/09/17 11:34 11/09/17 12:00 11/09/17 12:50 Temperature 98.3 F Pulse Rate 85 Respiratory Rate 17 Blood Pressure 142/65 H Pulse Oximetry 100 100 100 11/09/17 14:00 11/09/17 16:00 11/09/17 16:27 Temperature 98.3 F Pulse Rate 87 Respiratory Rate 19 19 Blood Pressure 152/65 H Pulse Oximetry 99 100 100 11/09/17 20:00 11/09/17 20:44 11/10/17 00:00 Temperature 100.5 F H 100.0 F H Pulse Rate 88 85 Respiratory Rate 18 19 17 Blood Pressure 147/64 H 151/65 H Pulse Oximetry 100 100 99 11/10/17 00:33 11/10/17 04:00 11/10/17 04:11 Temperature 100.8 F H Pulse Rate 89 Respiratory Rate 17 19 20 Blood Pressure 150/65 H Pulse Oximetry 100 97 97 11/10/17 07:51 11/10/17 08:00 Temperature 99.1 F Pulse Rate 91 H Respiratory Rate 20 21 Blood Pressure 157/84 H Pulse Oximetry 98 98 Intake & Output 11/09/17 11/10/17 11/10/17 18:59 06:59 18:59 Intake Total 1309 / 1309 2028 / 2028 400 / 400 Output Total 650 / 650 1100 / 1100 Balance 659 / 659 928 / 928 400 / 400 Weight 90.2 kg Intake: IV 900 / 900 1400 / 1400 400 / 400 Diprivan 1000 mg/100 ml Inj 1, 100 / 100 200 / 200 200 / 200 000 mg In 100 ml @ 5 MCG/KG/MIN 2.448 mls/hr IV.CONT TITRATE PRN Rx#:[id number] NS Inj 1,000 ML @ 70 mls/hr IV. 1000 / 1000 CONT .[id number] JONATHON Rx#:[id number] Levaquin 750 mg Premix Inj 150 150 / 150 ML @ 100 mls/hr IV.SIG Q24H JONATHON Rx#:[id number] Prostaphlin Inj 2 GM In NS Inj 400 / 400 200 / 200 200 / 200 100 ML @ 200 mls/hr IV.SIG Q4H JONATHON Rx#:[id number] fentaNYL 10 mcg/mL Premix Drip 250 / 250 2,500 mcg In 250 ml @ 50 MCG/HR 5 mls/hr IV.SIG TITRATE PRN Rx #:[id number] Tube Feeding 409 / 409 508 / 508 Tube Irrigant 120 / 120 Output: Urine Amount (Catheter) 650 / 650 1100 / 1100 Condom 650 / 650 1100 / 1100 Other: Date of Last Bowel Movement 11/08/17 11/08/17 11/08/17 # Bowel Movements 0 0 11/09/17 10:20 Blood - Peripheral Aerobic Blood Culture - Preliminary No growth in 1 day 11/09/17 10:20 Blood - Peripheral Anaerobic Blood Culture - Final QNS - See aerobic report. 11/08/17 10:49 Blood - Peripheral Aerobic Blood Culture - Preliminary No growth in 2 days 11/08/17 10:49 Blood - Peripheral Anaerobic Blood Culture - Preliminary No growth in 2 days 11/07/17 06:20 Blood - Peripheral Aerobic Blood Culture - Final Staphylococcus aureus 11/07/17 06:20 Blood - Peripheral Anaerobic Blood Culture - Preliminary No growth in 3 days 11/06/17 05:39 Blood - Peripheral Aerobic Blood Culture - Final Staphylococcus aureus 11/06/17 05:39 Blood - Peripheral Anaerobic Blood Culture - Preliminary No growth in 4 days 11/05/17 04:22 Blood - Peripheral Aerobic Blood Culture - Final Staphylococcus aureus 11/05/17 04:22 Blood - Peripheral Anaerobic Blood Culture - Final No growth in 5 days 11/06/17 08:55 Sputum - Endotracheal Gram Stain - Final 11/06/17 08:55 Sputum - Endotracheal Sputum Culture - Final Staphylococcus aureus 11/05/17 11:40 Sputum - Endotracheal Gram Stain - Final 11/05/17 11:40 Sputum - Endotracheal Sputum Culture - Final Staphylococcus aureus 11/05/17 01:34 Catheterized Urine Urine Culture - Final No growth in 48 hours Lab - Hematology Results 11/09/17 11/10/17 04:30 04:10 WBC 6.9 7.2 RBC 3.25 L 3.09 L Hgb 9.4 L 8.9 L Hct 28.0 L 26.6 L MCV 86.0 85.9 MCH 29.0 28.8 MCHC 33.7 33.5 RDW 13.5 13.5 Plt Count 177 181 MPV 10.3 10.0 Lab - Chemistry Results 11/09/17 11/10/17 04:30 04:10 Sodium 148 H 148 H Potassium 4.3 3.8 Chloride 115 H 117 H Carbon Dioxide 27.0 25.9 Anion Gap 6 5 BUN 25 H 17 Creatinine 1.27 1.06 Estimated GFR 65 L 80 L Random Glucose 139 H 128 H Calcium 7.7 L 7.6 L Phosphorus 4.0 2.8 D Magnesium 2.6 H 2.3 Total Bilirubin 0.6 0.6 AST 39 H 27 ALT 22 17 Alkaline Phosphatase 72 61 Total Protein 8.5 H D 7.8 D Albumin 1.8 L 1.6 L Imaging: ITS Impressions Head CTA 11/04/17 05:39 CONCLUSION: 1. Patient is left vertebral dominant. 2. Otherwise, intracranial vessels are all patent without embolic or aneurysmal disease. Neck CTA 11/04/17 05:39 CONCLUSION: 1. Patient is left vertebral dominant. 2. Otherwise, arch and cervical vessels are patent throughout. Head MRI 11/04/17 06:36 CONCLUSION: 1. Acute infarcts as described above suggesting embolic occlusion as described above. Largest areas in the left posterior sylvian region. Head CT 11/06/17 07:54 CONCLUSION: 1. Persistent large area of cytotoxic edema involving the left temporoparietal lobe as well as focal edema involving the head of the left caudate nucleus consistent with known acute infarction involving the left middle cerebral artery. There is a small area of edema involving the right posterior parietal occipital lobe which is stable. 2. No acute hemorrhage, midline shift, extra-axial bleed or ventriculomegaly. Chest X-Ray 11/07/17 21:17 CONCLUSION: Diffuse pulmonary consolidation likely representing diffuse processes such as edema. This is clearly worsened since the prior exam. Physical Exam: GENERAL: Sedated on the vent SKIN: Warm and dry. No generalized rash. Embolic lesions better HEAD: Atraumatic. Normocephalic. No temporal wasting, or tenderness. EYES: [place] conjunctiva. Has petechia on L conjunctiva. Pupils equal, round and reactive to light. No scleral icterus. No injection or drainage. EARS, NOSE AND THROAT: Nose without bleeding or purulent nasal discharge. No sinus tenderness. Mucous membranes pink and moist. NECK: Trachea midline. Supple and not tender, no meningeal signs CARDIOVASCULAR: Regular rate and rhythm. RESPIRATORY: Bilateral coarse breath sounds ABDOMEN: Soft, nondistended. Bowel sounds present and normoactive. No reaction to palpation. EXTREMITIES: No clubbing, cyanosis, or edema. No joint effusion. NEUROLOGICAL: Sedated on the vent, PSYCHIATRIC: Unable to assess LINE: No evidence of infection Assessment and Plan - Plan Impression MSSA sepsis L sided endocarditis AV, due to IVDU - has large vegetation AV, causing mild obstruction CVA with R sided weakness, aphasia, due to embolic event from his IE IVDU Respiratory failure, has bilateral infiltrates MSSA PNA Recommendation Follow blood C/S to document clearing Continue IV Oxacillin Continue Rifampin for synergy Continue Levaquin, plan 7 days Follow C/S Follow temps - ?trending down Monitor progress Per CTS not surgical candidate D/W RN
--- NOTE | 2017-11-10 14:10 | P.PNCC ---
Subjective Subjective Remarks/Hospital Course: This is a 31yM who recently presented to the emergency department on 10/30 with subjective fevers and back pain. At that time he was given an MRI of the spine due to his IV drug use and concern for endocarditis. His MRI spine was negative and he was discharged home. Blood cultures that were drawn at that time returned 4 out of 4 bottles with MSSA. Patient was attempted to be contacted at his home to return for medical attention, but he was unable to be contacted. He represents today with acute altered mental status and was found on the floor of his apartment. He is aphasic and has significant right-sided hemiparesis/weakness. CT brain demonstrates a small amount of subarachnoid blood and small areas of decreased density suggestive of acute infarcts. MRI confirms multiple small areas of infarct. I evaluated the patient and he is quite altered and aphasic and no additional information is available from him. I performed bedside critical care ultrasonography which demonstrates a large mobile mass on the aortic valve with associated severe aortic regurgitation. No pericardial effusion. In addition all this, the patient has a new finding of an INR of 9.8 as well as an elevated salicylate level of 28. Given there is recent community history seated to suggest that some of the IV drugs in the area have been contaminated with rapid poison and or Coumadin/warfarin, I have a high degree of suspicion that the patient may have injected contaminated IV drugs. I have contacted poison control who is following along. We have ordered 4 units of FFP emergently to be released to the patient. We have called pharmacy and due to a national shortage of the drug, we do not have any [facility]ra available. I have also ordered FEIBA as an alternative to K [facility]ra. 11/05: INR has been corrected to normal. Repeat head CT shows no evidence of additional bleed. Noteworthy on head CT is new edema involving most of the temporal lobe on the left side, arising in the area of ischemic infarct. Other smaller defects are noted bilaterally. Blood cultures are growing MSSA, consistent with his IV drug use and aortic valve vegetation. Bilateral lung infiltrates noted on today's chest x-ray consistent with prehospital aspiration. 11/06: Tolerating spontaneous breathing trial with acceptable pressure support but oxygenation markedly impaired due to prehospital aspiration pneumonitis. No change in neurologic status. Cultures continued to be positive for staph aureus. 11/07: Continues to tolerate spontaneous breathing trials with acceptable pressure support. Minimal change in neurologic status and I cannot get him to follow any commands. Pre-albumin surprisingly low at 11, continue aggressive nutritional support. 11/08: Extubated himself yesterday morning and tolerated spontaneous breathing with supplemental oxygen during the day. In the early evening he became unable to protect his airway and his respiratory effort became much weaker. He required endotracheal intubation and mechanical ventilation thereafter. While extubated he did respond to simple commands including moving his left hand. He did repeat simple 2 and 3 word statements. The chest x-ray following reintubation is consistent with heart failure although the hemodynamics belie that, more consistent with an inflammatory process. 11/09: Tolerating ongoing diuresis. Gas exchange improving. Difficult to assess while sedated we will aim for re-extubation. 11/10: Ongoing septic pattern. First extubation was poorly tolerated by the patient and he remains to obtunded to extubate at this time. Converted from APRV back to conventional ventilation and now reducing PEEP. Objective Vital Signs / I&O: Vital Signs 11/09/17 14:00 11/09/17 16:00 11/09/17 16:27 Temperature 98.3 F Pulse Rate 87 Respiratory Rate 19 19 Blood Pressure 152/65 H Pulse Oximetry 99 100 100 11/09/17 20:00 11/09/17 20:44 11/10/17 00:00 Temperature 100.5 F H 100.0 F H Pulse Rate 88 85 Respiratory Rate 18 19 17 Blood Pressure 147/64 H 151/65 H Pulse Oximetry 100 100 99 11/10/17 00:33 11/10/17 04:00 11/10/17 04:11 Temperature 100.8 F H Pulse Rate 89 Respiratory Rate 17 19 20 Blood Pressure 150/65 H Pulse Oximetry 100 97 97 11/10/17 07:51 11/10/17 08:00 11/10/17 11:18 Temperature 99.1 F Pulse Rate 91 H Respiratory Rate 20 21 17 Blood Pressure 157/84 H Pulse Oximetry 98 98 100 11/10/17 12:00 Temperature 99.5 F Pulse Rate 80 Respiratory Rate 17 Blood Pressure 135/63 Pulse Oximetry 100 Intake & Output 11/09/17 11/10/17 11/10/17 18:59 06:59 18:59 Intake Total 1309 / 1309 2028 / 2028 550 / 550 Output Total 650 / 650 1100 / 1100 Balance 659 / 659 928 / 928 550 / 550 Weight 90.2 kg Intake: IV 900 / 900 1400 / 1400 550 / 550 Diprivan 1000 mg/100 ml Inj 1, 100 / 100 200 / 200 200 / 200 000 mg In 100 ml @ 5 MCG/KG/MIN 2.448 mls/hr IV.CONT TITRATE PRN Rx#:[id number] NS Inj 1,000 ML @ 70 mls/hr IV. 1000 / 1000 CONT .[id number] JONATHON Rx#:[id number] Levaquin 750 mg Premix Inj 150 150 / 150 150 / 150 ML @ 100 mls/hr IV.SIG Q24H JONATHON Rx#:[id number] Prostaphlin Inj 2 GM In NS Inj 400 / 400 200 / 200 200 / 200 100 ML @ 200 mls/hr IV.SIG Q4H JONATHON Rx#:[id number] fentaNYL 10 mcg/mL Premix Drip 250 / 250 2,500 mcg In 250 ml @ 50 MCG/HR 5 mls/hr IV.SIG TITRATE PRN Rx #:[id number] Tube Feeding 409 / 409 508 / 508 Tube Irrigant 120 / 120 Output: Urine Amount (Catheter) 650 / 650 1100 / 1100 Condom 650 / 650 1100 / 1100 Other: Date of Last Bowel Movement 11/08/17 11/08/17 11/08/17 # Bowel Movements 0 0 Result Diagrams: 11/10/17 04:10 11/10/17 04:10 Objective Remarks: - Imaging Impressions Chest X-Ray 11/04/17 05:39 CONCLUSION: 1. Patchy left perihilar and right basilar airspace disease with possible developing right-sided effusion. 2. Lungs are hypoinflated. Head CT 11/04/17 05:39 CONCLUSION: 1. There appear to be new, subcortical white matter infarct posteriorly in the right parietal lobe. 2. There also appears to be some faint subarachnoid hemorrhage over the high parietal [place] bilaterally 3. No fractures, Report was called by [ Dr. Ellis to Dr. Sloan in the ED at 0614 hours] Head CTA 11/04/17 05:39 CONCLUSION: 1. Patient is left vertebral dominant. 2. Otherwise, intracranial vessels are all patent without embolic or aneurysmal disease. Neck CTA 11/04/17 05:39 CONCLUSION: 1. Patient is left vertebral dominant. 2. Otherwise, arch and cervical vessels are patent throughout. PE: GENERAL: Young male, reintubated and on mechanical ventilation HEENT: Normocephalic. Atraumatic. Pupils 2 mm, equal, round, reactive, conjugate. Mucous membranes are moist NECK: Trachea is midline. Orotracheal route intubation. CHEST: Equal chest rise. Nasal cannula oxygen. Diffuse crackles, no wheezes. CARDIOVASCULAR: Tachycardia, regular rhythm. Sinus. No JVD. ABDOMEN: Soft, nontender, nondistended. No guarding. Bowel sounds present. MUSCULOSKELETAL: Pulses dp 2+. No peripheral edema. Multiple linear scars over the bilateral upper and lower extremities consistent with needle fan. Positive [place] lesions. NEUROLOGICAL: RASS -1. Musculoskeletal strength on the right is 1/5 at best in both the upper and lower extremities. Musculoskeletal strength on the left is 4 out of 5. Withdraws left side extremities to noxious stimulation. Intermittent left hand grasp to command, unable to check today. 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 Patient remains very critically ill. We will need to admit him to the ICU for frequent neuro monitoring, emergent reversal of coagulopathy, and management of his multiorgan system failure. Worsening pulmonary function manifested as diffuse bilateral lung infiltrates and dependence on mechanical ventilation. Plan by systems: Neurologic: Acute 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 Acute aphasia Right sided weakness Hemorrhagic Conversion Subarachnoid hemorrhage IV drug abuse - frequent neuro checks - avoid long-acting sedatives - MRI brain - neurosurgery consultation - EEG: no evidence of ictal activity -Worsening edema left temporal lobe on CAT scan. -Spoke simple 2 and 3 word sentences yesterday following extubation. Appears confused. -Reintubated for inability to protect airway, does not appear to follow commands. Respiratory: Hypoxemic respiratory failure Prehospital aspiration pneumonitis -Required intubation for inability to control airway last night. -Elevated PEEP to 12 required to create oxygenation greater than 90%. -Able to reduce PEEP to 5 this morning. -Converted to airway pressure release ventilation with good oxygen diffusion. -Converted back to conventional ventilation and now weaning heat. Cardiovascular: Mixed septic/cardiogenic shock Severe aortic regurgitation Large aortic valve vegetation 1x1.7cm Mild aortic stenosis from vegetation NS @ 50cc/hr, mild [place] I is resolving. Renal: Acute kidney injury - place fontaine - monitor uop - secondary to poor perfusion from cardiac output and severe sepsis -- Strict I/Os FEN/GI: Lactic Acidosis Acute protein calorie malnutrition- severe, temporal muscle wasting Start tube feedings ICU electrolyte protocol mivf trend lactate Although radiographic picture would disagree his renal function appears to indicate prerenal azotemia. Heme/ID: Severe coagulopathy: suspected contaminated iv drugs with Rat Poison/Coumadin/ Warfarin Salicylate Poisoning: suspected contaminated IV drugs - recent history is absent for coagulopathy - stat 4 ffp and recheck - vit K 10 SQ - poison control involved - basic UDS +opiates and canabinoids. detailed UDS still pending - there have been reports of contaminated bath salts. in addition to detailed UDS, specific Bath Salts metabolites sent to reference lab. - salicylate levels downtrending. -INR remains corrected after Feiba. Endocrine: -- SSI Prophylaxis: GI Prophylaxis protonix DVT Prophylaxis -- SCDs holding pharmacologic DVT prophylaxis due to risks of hemorrhagic conversion Lines: marito fontaine Overall impression: This gentleman is critically ill with systemic sepsis and organ dysfunction. Due to deteriorating status he required intubation and mechanical ventilation last night which will need to be continued. This is clearly bacterial endocarditis involving the [place] aortic valve and associated with embolic brain infarcts. His prognosis is guarded at best. We will continue to hold DVT prophylaxis anticoagulation until repeat CAT scan confirms no additional bleeding. His neurologic status remains unstable. He will clearly have a profound mcfp neurological disability At this juncture it looks like he will require a tracheostomy but would certainly like to defer that should he become stable enough to tolerate a sternotomy for aortic valve replacement. Bloodstream continues to be positive for staph. Low-level sepsis present. Critical care time 38 minutes aside from procedures.
[2017-11-11] MEDS: Oral Hygiene Kit OROPHARYNG SCH ×4 (00:38→15:51)
[2017-11-11] MEDS: Propofol 1000 mg/100 ml Inj 1,000 MG/100 ML BOTTLE IV.CONT PRN ×4 (05:57→19:40)
[2017-11-11] MEDS: Acetaminophen 325 MG Tablet PO PRN ×3 (06:06→18:15)
[2017-11-11 06:25] LABS: Hematocrit 27.9 % (39.0-51.0); Hemoglobin 9.3 gm/dL (13.0-17.0); Mean Corpuscular HGB Conc 33.3 % (32.0-36.0); Mean Corpuscular Hemoglobin 28.6 pg (27.0-34.0); Mean Platelet Volume 9.4 fL (7.0-11.0); Platelet Count 200 th/mm3 (150-450); Red Blood Count 3.24 mil/mm3 (4.50-5.90); Red Cell Distribution Width 13.6 % (11.6-17.2); White Blood Count 7.7 th/mm3 (4.0-11.0)
[2017-11-11 06:32] LABS: Prothrombin Time 10.5 sec (9.8-11.6)
[2017-11-11 06:38] LABS: Albumin 1.6 g/dL (3.4-5.0); Anion Gap 6 meq/L (5-15); Aspartate Aminotransferase 23 U/L (15-37); Blood Urea Nitrogen 14 mg/dL (7-18); Calcium 7.6 mg/dL (8.5-10.1); Carbon Dioxide 24.9 meq/L (21.0-32.0); Chloride 116 meq/L (98-107); Glomerular Filtration Rate 87 mL/min (>89); Glucose,Random 104 mg/dL (74-106); Magnesium 2.1 mg/dL (1.5-2.5); Sodium 147 meq/L (136-145)
[2017-11-11 06:39] LABS: Alanine Aminotransferase 15 U/L (12-78); Phosphorus 3.7 mg/dL (2.5-4.9)
[2017-11-11 06:41] LABS: Alkaline Phosphatase 60 U/L (45-117); Total Protein 7.9 g/dL (6.4-8.2)
[2017-11-11] MEDS: Pantoprazole Inj 40 MG Vial IV.PUSH SCH (08:52)
[2017-11-11] MEDS: Chlorhexidine 0.12% Oral Kit 15 ML UDC OROPHARYNG SCH ×2 (08:52→20:52)
[2017-11-11] MEDS: Sod Chloride 0.9% Inj 1,000 ML IV.CONT SCH (08:54)
[2017-11-11] MEDS: fentaNYL 10 mcg/mL Premix Drip 2,500 MCG/250 ML BAG IV.SIG PRN (08:59)
--- NOTE | 2017-11-11 10:19 | P.PNID ---
Subjective Remarks: Patient is a 31-year-old male, who initially presented to [facility] emergency room October 30 complaining of 3 day history of headache. He gave a history of IV drug use. He was not febrile during that visit. WBC was normal. He underwent CT of the brain which was negative. Also underwent MRI of the thoracic and lumbar spine which were both negative for any infection. 2 blood cultures were done at that time and he was discharged. He came back to the hospital after his friends found him on the kitchen floor. He was reportedly unable to move his right side. And he was also noted to have some difficulty speaking. He remains afebrile. His white count is elevated. His CT of the head is now showing some findings in the right parietal area, as well as faint subarachnoid hemorrhage. CTA of the neck is negative. He has evidence of right-sided weakness, as well as expressive aphasia. The 2 blood cultures done on his ED visit is now reported as growing MSSA. Infectious disease consultation has been requested to evaluate the patient. Notes reviewed One high fever overnight Sedated on the vent BP ok No new (+) BC BC (+) 11/04-11/07 Sputum with MSSA WBC normal Platelets improving CTS evaluation noted - not a surgical candidate MRI head, with multiple areas of infarct CT head repeat, with edema in temporal lobe CXR with increased infiltrates Echocardiogram: The left ventricular systolic function is normal with an estimated ejection fraction in the range of 60-65%. Trace mitral valve regurgitation. Large vegetation noted on the aortic valve (1.7cm x 1.0cm) Mild obstruction of the aortic valve due to vegetation with a mean gradient of 11 mmHg Severe eccentric aortic regurgitation There is trace tricuspid valve regurgitation. Antibiotics: Oxacillin Rifampin Levaquin Lines: R central line Past Medical History: Diabetes Hypertension IVDU Allergies/Adverse Reactions: Allergies No Known Allergies Allergy (Unverified 10/30/17 21:54) Objective Vital Signs 11/10/17 11:18 11/10/17 12:00 11/10/17 15:52 Temperature 99.5 F Pulse Rate 80 Respiratory Rate 17 17 19 Blood Pressure 135/63 Pulse Oximetry 100 100 99 11/10/17 16:00 11/10/17 19:40 11/10/17 20:00 Temperature 99.1 F 99.3 F Pulse Rate 88 92 H Respiratory Rate 20 18 Blood Pressure 145/64 H 146/63 H Pulse Oximetry 99 99 100 11/10/17 22:00 11/10/17 22:18 11/11/17 00:00 Temperature 99.6 F Pulse Rate 83 94 H Respiratory Rate 18 21 Blood Pressure 160/68 H Pulse Oximetry 100 100 11/11/17 01:20 11/11/17 04:00 11/11/17 04:15 Temperature 101 F H Pulse Rate 88 Respiratory Rate 20 17 18 Blood Pressure 124/59 L Pulse Oximetry 97 100 97 11/11/17 07:51 Temperature Pulse Rate Respiratory Rate 17 Blood Pressure Pulse Oximetry 97 Intake & Output 11/10/17 11/11/17 11/11/17 18:59 06:59 18:59 Intake Total 2386 / 2386 1237 / 1237 1350 / 1350 Output Total 1900 / 1900 1250 / 1250 Balance 486 / 486 -13 / -13 1350 / 1350 Weight 92.6 kg Intake: IV 1850 / 1850 500 / 500 1350 / 1350 Diprivan 1000 mg/100 ml Inj 1, 300 / 300 200 / 200 100 / 100 000 mg In 100 ml @ 5 MCG/KG/MIN 2.448 mls/hr IV.CONT TITRATE PRN Rx#:[id number] NS Inj 1,000 ML @ 70 mls/hr IV. 1000 / 1000 1000 / 1000 CONT .[id number] JONATHON Rx#:[id number] Levaquin 750 mg Premix Inj 150 150 / 150 ML @ 100 mls/hr IV.SIG Q24H JONATHON Rx#:[id number] Prostaphlin Inj 2 GM In NS Inj 400 / 400 300 / 300 100 ML @ 200 mls/hr IV.SIG Q4H JONATHON Rx#:[id number] fentaNYL 10 mcg/mL Premix Drip 250 / 250 2,500 mcg In 250 ml @ 50 MCG/HR 5 mls/hr IV.SIG TITRATE PRN Rx #:[id number] Oral 0 / 0 Tube Feeding 536 / 536 537 / 537 Tube Irrigant 200 / 200 Output: Urine Amount (Catheter) 1900 / 1900 1250 / 1250 Condom 1900 / 1900 1250 / 1250 Other: Date of Last Bowel Movement 11/08/17 11/08/17 # Bowel Movements 0 0 11/09/17 10:20 Blood - Peripheral Aerobic Blood Culture - Preliminary No growth in 1 day 11/09/17 10:20 Blood - Peripheral Anaerobic Blood Culture - Final QNS - See aerobic report. 11/08/17 10:49 Blood - Peripheral Aerobic Blood Culture - Preliminary No growth in 2 days 11/08/17 10:49 Blood - Peripheral Anaerobic Blood Culture - Preliminary No growth in 2 days 11/07/17 06:20 Blood - Peripheral Aerobic Blood Culture - Final Staphylococcus aureus 11/07/17 06:20 Blood - Peripheral Anaerobic Blood Culture - Preliminary No growth in 3 days 11/06/17 05:39 Blood - Peripheral Aerobic Blood Culture - Final Staphylococcus aureus 11/06/17 05:39 Blood - Peripheral Anaerobic Blood Culture - Preliminary No growth in 4 days 11/05/17 04:22 Blood - Peripheral Aerobic Blood Culture - Final Staphylococcus aureus 11/05/17 04:22 Blood - Peripheral Anaerobic Blood Culture - Final No growth in 5 days 11/06/17 08:55 Sputum - Endotracheal Gram Stain - Final 11/06/17 08:55 Sputum - Endotracheal Sputum Culture - Final Staphylococcus aureus Lab - Hematology Results 11/10/17 11/11/17 04:10 06:06 WBC 7.2 7.7 RBC 3.09 L 3.24 L Hgb 8.9 L 9.3 L Hct 26.6 L 27.9 L MCV 85.9 86.0 MCH 28.8 28.6 MCHC 33.5 33.3 RDW 13.5 13.6 Plt Count 181 200 MPV 10.0 9.4 Lab - Chemistry Results 11/10/17 11/11/17 04:10 06:06 Sodium 148 H 147 H Potassium 3.8 4.0 Chloride 117 H 116 H Carbon Dioxide 25.9 24.9 Anion Gap 5 6 BUN 17 14 Creatinine 1.06 0.99 Estimated GFR 80 L 87 L Random Glucose 128 H 104 Calcium 7.6 L 7.6 L Phosphorus 2.8 D 3.7 Magnesium 2.3 2.1 Total Bilirubin 0.6 0.5 AST 27 23 ALT 17 15 Alkaline Phosphatase 61 60 Total Protein 7.8 D 7.9 Albumin 1.6 L 1.6 L Imaging: ITS Impressions Head CTA 11/04/17 05:39 CONCLUSION: 1. Patient is left vertebral dominant. 2. Otherwise, intracranial vessels are all patent without embolic or aneurysmal disease. Neck CTA 11/04/17 05:39 CONCLUSION: 1. Patient is left vertebral dominant. 2. Otherwise, arch and cervical vessels are patent throughout. Head MRI 11/04/17 06:36 CONCLUSION: 1. Acute infarcts as described above suggesting embolic occlusion as described above. Largest areas in the left posterior sylvian region. Head CT 11/06/17 07:54 CONCLUSION: 1. Persistent large area of cytotoxic edema involving the left temporoparietal lobe as well as focal edema involving the head of the left caudate nucleus consistent with known acute infarction involving the left middle cerebral artery. There is a small area of edema involving the right posterior parietal occipital lobe which is stable. 2. No acute hemorrhage, midline shift, extra-axial bleed or ventriculomegaly. Chest X-Ray 11/07/17 21:17 CONCLUSION: Diffuse pulmonary consolidation likely representing diffuse processes such as edema. This is clearly worsened since the prior exam. Physical Exam: GENERAL: Sedated on the vent SKIN: Warm and dry. No generalized rash. Embolic lesions better HEAD: Atraumatic. Normocephalic. No temporal wasting, or tenderness. EYES: [place] conjunctiva. Has petechia on L conjunctiva. Pupils equal, round and reactive to light. No scleral icterus. No injection or drainage. EARS, NOSE AND THROAT: Nose without bleeding or purulent nasal discharge. No sinus tenderness. Mucous membranes pink and moist. NECK: Trachea midline. Supple and not tender, no meningeal signs CARDIOVASCULAR: Regular rate and rhythm. RESPIRATORY: Bilateral coarse breath sounds ABDOMEN: Soft, nondistended. Bowel sounds present and normoactive. No reaction to palpation. EXTREMITIES: No clubbing, cyanosis, or edema. No joint effusion. NEUROLOGICAL: Sedated on the vent, PSYCHIATRIC: Unable to assess LINE: No evidence of infection Assessment and Plan - Plan Impression MSSA sepsis L sided endocarditis AV, due to IVDU - has large vegetation AV, causing mild obstruction CVA with R sided weakness, aphasia, due to embolic event from his IE Intermittent fevers IVDU Respiratory failure, has bilateral infiltrates MSSA PNA Recommendation Follow blood C/S to document clearing Continue IV Oxacillin Continue Rifampin for synergy Continue Levaquin, plan 7 days - to finish today Follow C/S Monitor progress Per CTS not surgical candidate
--- NOTE | 2017-11-11 20:00 | P.PNCC ---
Subjective Subjective Remarks/Hospital Course: This is a 31yM who recently presented to the emergency department on 10/30 with subjective fevers and back pain. At that time he was given an MRI of the spine due to his IV drug use and concern for endocarditis. His MRI spine was negative and he was discharged home. Blood cultures that were drawn at that time returned 4 out of 4 bottles with MSSA. Patient was attempted to be contacted at his home to return for medical attention, but he was unable to be contacted. He represents today with acute altered mental status and was found on the floor of his apartment. He is aphasic and has significant right-sided hemiparesis/weakness. CT brain demonstrates a small amount of subarachnoid blood and small areas of decreased density suggestive of acute infarcts. MRI confirms multiple small areas of infarct. I evaluated the patient and he is quite altered and aphasic and no additional information is available from him. I performed bedside critical care ultrasonography which demonstrates a large mobile mass on the aortic valve with associated severe aortic regurgitation. No pericardial effusion. In addition all this, the patient has a new finding of an INR of 9.8 as well as an elevated salicylate level of 28. Given there is recent community history seated to suggest that some of the IV drugs in the area have been contaminated with rapid poison and or Coumadin/warfarin, I have a high degree of suspicion that the patient may have injected contaminated IV drugs. I have contacted poison control who is following along. We have ordered 4 units of FFP emergently to be released to the patient. We have called pharmacy and due to a national shortage of the drug, we do not have any [facility]ra available. I have also ordered FEIBA as an alternative to K Centra. 11/05: INR has been corrected to normal. Repeat head CT shows no evidence of additional bleed. Noteworthy on head CT is new edema involving most of the temporal lobe on the left side, arising in the area of ischemic infarct. Other smaller defects are noted bilaterally. Blood cultures are growing MSSA, consistent with his IV drug use and aortic valve vegetation. Bilateral lung infiltrates noted on today's chest x-ray consistent with prehospital aspiration. 11/06: Tolerating spontaneous breathing trial with acceptable pressure support but oxygenation markedly impaired due to prehospital aspiration pneumonitis. No change in neurologic status. Cultures continued to be positive for staph aureus. 11/07: Continues to tolerate spontaneous breathing trials with acceptable pressure support. Minimal change in neurologic status and I cannot get him to follow any commands. Pre-albumin surprisingly low at 11, continue aggressive nutritional support. 11/08: Extubated himself yesterday morning and tolerated spontaneous breathing with supplemental oxygen during the day. In the early evening he became unable to protect his airway and his respiratory effort became much weaker. He required endotracheal intubation and mechanical ventilation thereafter. While extubated he did respond to simple commands including moving his left hand. He did repeat simple 2 and 3 word statements. The chest x-ray following reintubation is consistent with heart failure although the hemodynamics belie that, more consistent with an inflammatory process. 11/09: Tolerating ongoing diuresis. Gas exchange improving. Difficult to assess while sedated we will aim for re-extubation. 11/10: Ongoing septic pattern. First extubation was poorly tolerated by the patient and he remains to obtunded to extubate at this time. Converted from APRV back to conventional ventilation and now reducing PEEP. SUBJECTIVE: 11/11: Seen and examined. Remains febrile T-max of 101. Hemodynamically stable. Positive BM today. Tolerating tube feeding. Objective Vital Signs / I&O: Vital Signs 11/10/17 20:00 11/10/17 22:00 11/10/17 22:18 Temperature 99.3 F Pulse Rate 92 H 83 Respiratory Rate 18 18 Blood Pressure 146/63 H Pulse Oximetry 100 100 11/11/17 00:00 11/11/17 01:20 11/11/17 04:00 Temperature 99.6 F 101 F H Pulse Rate 94 H 88 Respiratory Rate 21 20 17 Blood Pressure 160/68 H 124/59 L Pulse Oximetry 100 97 100 11/11/17 04:15 11/11/17 07:51 11/11/17 08:00 Temperature 99.5 F Pulse Rate 83 Respiratory Rate 18 17 16 Blood Pressure 119/56 L Pulse Oximetry 97 97 98 11/11/17 10:00 11/11/17 12:00 11/11/17 12:47 Temperature 100.8 F H Pulse Rate 99 H Respiratory Rate 19 20 27 H Blood Pressure 140/62 Pulse Oximetry 95 11/11/17 16:00 11/11/17 16:31 Temperature 101.0 F H Pulse Rate 103 H Respiratory Rate 22 21 Blood Pressure 147/65 H Pulse Oximetry 98 99 Intake & Output 07/11/11/17 11/12/17 06:59 18:59 06:59 Intake Total 1237 / 1237 2608 / 2608 200 / 200 Output Total 1250 / 1250 2049 Balance -13 / -13 558 / 558 200 / 200 Weight 92.6 kg Intake: IV 500 / 500 1800 / 1800 200 / 200 Diprivan 1000 mg/100 ml Inj 1, 200 / 200 200 / 200 100 / 100 000 mg In 100 ml @ 5 MCG/KG/MIN 2.448 mls/hr IV.CONT TITRATE PRN Rx#:[id number] NS Inj 1,000 ML @ 70 mls/hr IV. 1000 / 1000 CONT .[id number] JONATHON Rx#:[id number] Levaquin 750 mg Premix Inj 150 150 / 150 ML @ 100 mls/hr IV.SIG Q24H JONATHON Rx#:[id number] Prostaphlin Inj 2 GM In NS Inj 300 / 300 200 / 200 100 / 100 100 ML @ 200 mls/hr IV.SIG Q4H JONATHON Rx#:[id number] fentaNYL 10 mcg/mL Premix Drip 250 / 250 2,500 mcg In 250 ml @ 50 MCG/HR 5 mls/hr IV.SIG TITRATE PRN Rx #:[id number] Oral 0 / 0 Tube Feeding 537 / 537 608 / 608 Tube Irrigant 200 / 200 Water Bolus Amount 200 / 200 Output: Urine Amount (Catheter) 1250 / 1250 2049 Condom 1250 / 1250 2049 Other: # Voids 1 Date of Last Bowel Movement 11/08/17 11/11/17 # Bowel Movements 0 1 Result Diagrams: 11/11/17 06:06 11/11/17 06:06 Other Results: Microbiology 11/09/17 10:20 Blood - Peripheral Aerobic Blood Culture - Preliminary No growth in 2 days 11/09/17 10:20 Blood - Peripheral Anaerobic Blood Culture - Final QNS - See aerobic report. 11/08/17 10:49 Blood - Peripheral Aerobic Blood Culture - Preliminary No growth in 3 days 11/08/17 10:49 Blood - Peripheral Anaerobic Blood Culture - Preliminary No growth in 3 days 11/07/17 06:20 Blood - Peripheral Aerobic Blood Culture - Final Staphylococcus aureus 11/07/17 06:20 Blood - Peripheral Anaerobic Blood Culture - Preliminary No growth in 4 days 11/06/17 05:39 Blood - Peripheral Aerobic Blood Culture - Final Staphylococcus aureus 11/06/17 05:39 Blood - Peripheral Anaerobic Blood Culture - Final No growth in 5 days 11/05/17 04:22 Blood - Peripheral Aerobic Blood Culture - Final Staphylococcus aureus 11/05/17 04:22 Blood - Peripheral Anaerobic Blood Culture - Final No growth in 5 days 11/06/17 08:55 Sputum - Endotracheal Gram Stain - Final 11/06/17 08:55 Sputum - Endotracheal Sputum Culture - Final Staphylococcus aureus 11/05/17 11:40 Sputum - Endotracheal Gram Stain - Final 11/05/17 11:40 Sputum - Endotracheal Sputum Culture - Final Staphylococcus aureus 11/05/17 01:34 Catheterized Urine Urine Culture - Final No growth in 48 hours 11/04/17 06:45 Blood - Peripheral Aerobic Blood Culture - Final Staphylococcus aureus 11/04/17 06:45 Blood - Peripheral Anaerobic Blood Culture - Final Staphylococcus aureus 11/04/17 06:40 Blood - Peripheral Aerobic Blood Culture - Final Staphylococcus aureus 11/04/17 06:40 Blood - Peripheral Anaerobic Blood Culture - Final Staphylococcus aureus Imaging: Chest X-Ray 11/04/17 05:39 CONCLUSION: 1. Patchy left perihilar and right basilar airspace disease with possible developing right-sided effusion. 2. Lungs are hypoinflated. Head CT 11/04/17 05:39 CONCLUSION: 1. There appear to be new, subcortical white matter infarct posteriorly in the right parietal lobe. 2. There also appears to be some faint subarachnoid hemorrhage over the high parietal convex [place] bilaterally 3. No fractures, Report was called by [ Dr. Ellis to Dr. Sloan in the ED at 0614 hours] Head CTA 11/04/17 05:39 CONCLUSION: 1. Patient is left vertebral dominant. 2. Otherwise, intracranial vessels are all patent without embolic or aneurysmal disease. Neck CTA 11/04/17 05:39 CONCLUSION: 1. Patient is left vertebral dominant. 2. Otherwise, arch and cervical vessels are patent throughout. Head MRI 11/04/17 06:36 CONCLUSION: 1. Acute infarcts as described above suggesting embolic occlusion as described above. Largest areas in the left posterior sylvian region. Chest X-Ray 11/05/17 00:32 CONCLUSION: 1. . Worsening bilateral patchy airspace disease. Probable associated right- sided effusion. 2. Interval placement of a right subclavian central venous catheter, endotracheal and nasogastric tubes as detailed above. All appear to be appropriately positioned. No pneumothorax. Head CT 11/05/17 08:43 CONCLUSION: 1. New large area of edema in the left middle cerebral artery territory at site of infarction. There is no significant mass effect or midline shift. 2. Cerebellar areas of edema involving the right temporal parietal watershed region as well as the left caudate nucleus at site of restricted diffusion seen on MRI. 3. The previously noted apparent subtle subarachnoid hemorrhage over the high parietal convexities is no longer distinctly visualized. 4. No new hemorrhage. Head CT 11/06/17 07:54 CONCLUSION: 1. Persistent large area of cytotoxic edema involving the left temporoparietal lobe as well as focal edema involving the head of the left caudate nucleus consistent with known acute infarction involving the left middle cerebral artery. There is a small area of edema involving the right posterior parietal occipital lobe which is stable. 2. No acute hemorrhage, midline shift, extra-axial bleed or ventriculomegaly. Chest X-Ray 11/07/17 21:17 CONCLUSION: Diffuse pulmonary consolidation likely representing diffuse processes such as edema. This is clearly worsened since the prior exam. Objective Remarks: GENERAL: 31-year-old male currently orotracheally intubated HEENT: Normocephalic. Atraumatic. Pupils 2 mm, equal, round, reactive, conjugate. Mucous membranes are moist NECK: Trachea is midline. Orotracheal route intubation. CHEST: Equal chest rise. Diffuse crackles throughout. No wheezing CARDIOVASCULAR: Tachycardia, regular rhythm. S1, S2. No S4. 2/6 murmur right upper sternal border ABDOMEN: Soft, nontender, nondistended. No guarding. Bowel sounds present. MUSCULOSKELETAL: Pulses dp 2+. No peripheral edema. Multiple linear scars over the bilateral upper and lower extremities consistent with needle fan. Positive [place] lesions. NEUROLOGICAL: RASS -1. Musculoskeletal strength on the right is 1/5 at best in both the upper and lower extremities. Musculoskeletal strength on the left is 4 out of 5. Withdraws left side extremities to noxious stimulation. Intermittent left hand grasp to command, previously not able to check today Assessment and Plan - Assessment and Plan Plan: Neurologic/Psych: Acute 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 Acute aphasia Right sided weakness Hemorrhagic Conversion? Subarachnoid hemorrhage IV drug abuse THC use Currently on propofol at 35 mcg/kg/min/fentanyl drips 50 mg an hour for sedation /analgesia while intubated Goal of RA SS -2 Daily sedation vacation - MRI brain revealed left posterior MCA CVA also involving the right occipital region and left caudate nucleus likely embolic - neurosurgery/neurology consultation completed. Dr. Barton no intervention. Dr. Hatfield intermittently following - EEG: no evidence of ictal activity -Worsening edema left temporal lobe on CAT scan. Urine drug screen positive for fentanyl and salicylates and THC Respiratory: Hypoxemic respiratory failure Prehospital aspiration pneumonitis/MSSA -Required intubation for inability to control airway PRVC 14/600/1.2/ Ventilator bundle Albuterol/ipratropium aerosols every 4 hours with albuterol aerosols every 2 hours as needed for dyspnea Ventilator bundle A.m. chest x-ray and ABG ordered Cardiovascular: Mixed septic/cardiogenic shock Severe aortic regurgitation Large aortic valve vegetation 1x1.7cm Mild aortic stenosis from vegetation NS @ 50cc/hr, mild AK I is resolving. 2D echocardiogram 11/04 revealed EF 60-65%. Severe AR. Vegetation 1.01.7 cm Currently not requiring vasopressors and/or antihypertensives Renal/: Acute kidney injury -Continue Fontaine catheter - monitor uop - secondary to poor perfusion from cardiac output and severe sepsis -- Strict I/Os FEN/GI: Lactic Acidosis -resolved Acute protein calorie malnutrition- severe, temporal muscle wasting Hypoalbuminemia Start tube feedings with Glucerna 1.5 goal 60 cc hours per nutrition recommendations ICU electrolyte protocol mivf Lansoprazole for GI prophylaxis Docusate sodium/senna 1 tablet twice daily for bowel regimen. Heme/ID: Severe coagulopathy: suspected contaminated iv drugs with Rat Poison/Coumadin/ Warfarin Salicylate Poisoning: suspected contaminated IV drugs MSSA sepsis/pneumonia -INR remains corrected after Feibavitamin K and FFP Continue oxacillin drip and rifampin 300 mg twice daily per infectious disease. Complete levofloxacin stop date 11/11 Blood cultures positive for MSSA 11/07, and . Subsequent 11/11/11/09 and no growth to date. Sputum positive for MSSA Endocrine: -- SSI aspart low protocol every 6 hours MSK Elevated BMI Weight loss encouraged Prophylaxis: GI Prophylaxis Lansoprazole DVT Prophylaxis -- SCDs holding pharmacologic DVT prophylaxis due to risks of hemorrhagic conversion Lines: Right subclavian CVL fontaine Critical care time 30 minutes aside from procedures.
[2017-11-11] MEDS ORDERED: Dextrose 50% in Water 50 ML Vial IV.PUSH PRN (20:11)
[2017-11-11] MEDS ORDERED: Labetalol HCl Inj 100 MG/20 ML Vial IV.PUSH PRN (20:35)
[2017-11-11] MEDS: Senna/Docusate Sodium 8.6/50 MG Tablet PO SCH (20:51)
[2017-11-11] MEDS: Hypromellose 0.3% Opth Gel 10 GM Bottle EACH EYE SCH (20:51)
[2017-11-12] MEDS: Propofol 1000 mg/100 ml Inj 1,000 MG/100 ML BOTTLE IV.CONT PRN ×5 (00:09→21:27)
[2017-11-12] MEDS: Oral Hygiene Kit OROPHARYNG SCH ×5 (00:58→23:59)
[2017-11-12] MEDS: Insulin NovoLOG Aspart Correctional Sugar Inj SQ SCH ×5 (00:59→23:59)
[2017-11-12] MEDS: Acetaminophen 325 MG Tablet PO PRN (01:19)
--- NOTE | 2017-11-12 04:15 | XR ---
EXAM DATE: 11/12/2017 4:09 AM EDT AGE/SEX: 31 years / Male INDICATIONS: Respiratory failure. Follow-up pulmonary edema. CLINICAL DATA: This is the patient's subsequent encounter. Patient reports that signs and symptoms h ave been present for 1 week and indicates a pain score of Nonresponsive. MEDICAL/SURGICAL HISTORY: . Hypertension. Diabetes mellitus type II None. COMPARISON: C, CHEST 1V SINGLE AP, 11/07/2017. . FINDINGS: A single AP portable supine view of the chest was obtained and again demonstrates an endotracheal tub e in place with the tip 4 cm above the delon. The nasogastric tube and right subclavian central veno us catheter are unchanged. There is been interval improvement in the bilateral alveolar opacities wit h moderate residual remaining in the perihilar regions and lung bases. The left costophrenic angle ap pears mildly blunted. The bony thorax appears intact with multiple overlying electrocardiogram leads. CONCLUSION: 1. Interval improvement in pulmonary edema. 2. Moderate residual airspace disease remains as well as an apparent small left effusion. Electronically signed by: Bartolo Yen MD 11/12/2017 4:14 AM EDT
[2017-11-12] MEDS: Sod Chloride 0.9% Inj 1,000 ML IV.CONT SCH ×2 (04:32→16:03)
[2017-11-12 05:51] LABS: Baso # (Auto) 0.1 th/mm3 (0.0-0.2); Baso % (Auto) 0.8 % (0.0-2.0); Eos # (Auto) 0.1 th/mm3 (0.0-0.4); Eos % (Auto) 1.5 % (0.0-4.0); Hematocrit 26.4 % (39.0-51.0); Hemoglobin 8.7 gm/dL (13.0-17.0); Lymph # (Auto) 1.4 th/mm3 (1.0-4.8); Lymph % (Auto) 18.2 % (9.0-44.0); Mean Corpuscular HGB Conc 32.9 % (32.0-36.0); Mean Corpuscular Hemoglobin 28.5 pg (27.0-34.0); Mean Corpuscular Volume 86.4 fL (80.0-100.0); Mean Platelet Volume 9.1 fL (7.0-11.0); Mono # (Auto) 0.5 th/mm3 (0.0-0.9); Mono % (Auto) 5.9 % (0.0-8.0); Neut # (Auto) 5.8 th/mm3 (1.8-7.7); Neut % (Auto) 73.6 % (16.0-70.0); Platelet Count 179 th/mm3 (150-450); Red Blood Count 3.06 mil/mm3 (4.50-5.90); Red Cell Distribution Width 13.5 % (11.6-17.2); White Blood Count 7.9 th/mm3 (4.0-11.0)
[2017-11-12 05:54] LABS: Activated Partial Thrombo Time 26.6 sec (24.3-30.1); Prothrombin Time 10.5 sec (9.8-11.6)
[2017-11-12 06:07] LABS: Anion Gap 6 meq/L (5-15); Blood Urea Nitrogen 11 mg/dL (7-18); Calcium 7.7 mg/dL (8.5-10.1); Carbon Dioxide 24.5 meq/L (21.0-32.0); Chloride 112 meq/L (98-107); Glomerular Filtration Rate Greater Than 89 mL/min (>89); Glucose,Random 120 mg/dL (74-106); Magnesium 2.2 mg/dL (1.5-2.5); Potassium 3.7 meq/L (3.5-5.1); Sodium 142 meq/L (136-145)
[2017-11-12 06:08] LABS: Albumin 1.5 g/dL (3.4-5.0)
[2017-11-12 06:12] LABS: Alanine Aminotransferase 13 U/L (12-78); Alkaline Phosphatase 56 U/L (45-117); Aspartate Aminotransferase 26 U/L (15-37); Phosphorus 3.6 mg/dL (2.5-4.9); Total Protein 7.7 g/dL (6.4-8.2)
[2017-11-12 06:18] LABS: ABG PCO2 33 mmHg (38-42); ABG PO2 97 mmHg (61-120)
--- NOTE | 2017-11-12 08:13 | P.PNNEU ---
Subjective Subjective Comments: on vent fully sedated Active Medications: Active Medications Acetaminophen (Tylenol) 650 mg PO Q6H PRN PRN Reason: TEMPERATURE > 101 F Last Admin: 11/12/17 01:19 Dose: 650 mg Albuterol (Duoneb Neb (John)) 1 ampul NEB Q4HR NEB [facility] Last Admin: 11/12/17 03:32 Dose: 1 ampul Albuterol (Albuterol Neb (Prn)) 2.5 mg NEB Q2HR NEB PRN PRN Reason: DYSPNEA Artificial Tears (Genteal Severe Dry Eye Relief 0.3% Opth Gel) 1 drops EACH EYE BID [facility] Last Admin: 11/11/17 20:51 Dose: 1 drops Chlorhexidine Gluconate (Peridex 0.12% Oral Kit) 15 ml OROPHARYNG BID@0800, 2000 [facility] Last Admin: 11/11/17 20:52 Dose: 15 ml Clonidine HCl (Catapres) 0.1 mg PO Q6H PRN PRN Reason: SBP>160, DBP>90 Dextrose (D50w Vial) 50 ml IV.PUSH UNSCH PRN PRN Reason: PER HYPOGLYCEMIA PROTOCOL Flumazenil (Romazecon Inj) 0.2 mg IV.PUSH Q1M PRN PRN Reason: OVERSEDATION Glucagon (Glucagon Inj) 1 mg OTHER PRN PRN PRN Reason: for Hypoglycemia Protocol Midazolam HCl (Versed Inj) 50 mg in 50 mls @ 2 mls/hr IV.CONT TITRATE PRN; Protocol PRN Reason: Per Protocol Last Titration: 11/05/17 15:30 Dose: 0 mg/hr, 0 mls/hr Fentanyl (Fentanyl 10 Mcg/Ml Premix Drip) 2,500 mcg in 250 mls @ 5 mls/hr IV.SIG TITRATE PRN; Protocol PRN Reason: Per Protocol Last Titration: 11/11/17 11:18 Dose: 50 mcg/hr, 5 mls/hr Propofol (Diprivan 1000 Mg/100 Ml Inj) 1,000 mg in 100 mls @ 2.448 mls/hr IV.CONT TITRATE PRN; Protocol PRN Reason: Per Protocol Last Admin: 11/12/17 05:42 Dose: 35 mcg/kg/min, 17.14 mls/hr Sodium Chloride (Ns Inj) 1,000 mls @ 70 mls/hr IV.CONT .[id number] [facility] Last Admin: 11/12/17 04:32 Dose: 70 mls/hr Magnesium Sulfate Inj 4 gm/ (Sodium Chloride) 100 mls @ 50 mls/hr IV.SIG UNSCH PRN PRN Reason: For Magnesium 0.9 - 1.1 mg/dL Magnesium Sulfate Inj 2 gm/ (Sodium Chloride) 100 mls @ 50 mls/hr IV.SIG UNSCH PRN PRN Reason: For Magnesium 1.2 - 1.6 mg/dL Potassium Chloride (Kcl 40 Meq Premix Inj) 40 meq in 100 mls @ 25 mls/hr IV.SIG Q2H PRN PRN Reason: For Potassium 2.8 - 3.2 mEq/L Potassium Chloride (Kcl 20 Meq Premix Inj) 20 meq in 100 mls @ 50 mls/hr IV.SIG Q2H PRN PRN Reason: For Potassium 3.3 - 3.5 mEq/L Last Infusion: 11/05/17 07:00 Dose: Infused Potassium Chloride (Kcl 40 Meq Premix Inj) 40 meq in 100 mls @ 25 mls/hr IV.SIG UNSCH PRN PRN Reason: For Potassium 3.3 - 3.5 mEq/L Last Infusion: 11/06/17 02:06 Dose: Infused Potassium Chloride (Kcl 20 Meq Premix Inj) 20 meq in 100 mls @ 50 mls/hr IV.SIG Q2H PRN PRN Reason: For Potassium 2.8 - 3.2 mEq/L Last Infusion: 11/05/17 07:00 Dose: Infused Potassium Phosphate 30 mmol/ (Sodium Chloride) 260 mls @ 42 mls/hr IV.SIG UNSCH PRN PRN Reason: SEE LABEL COMMENTS Sodium Phosphate 30 mmol/ (Sodium Chloride) 260 mls @ 42 mls/hr IV.SIG UNSCH PRN PRN Reason: For Phosphorus < 2.5 mg/dL Oxacillin Sodium 2 gm/ Sodium (Chloride) 100 mls @ 200 mls/hr IV.SIG Q4H JOHN Last Infusion: 11/12/17 06:15 Dose: Infused Insulin Aspart (Novolog Insulin Correctional Sugar Inj) 0 unit SQ Q6HR JOHN; Protocol Last Admin: 11/12/17 07:03 Dose: Not Given Labetalol HCl (Trandate Inj) 10 mg IV.PUSH Q1H PRN PRN Reason: SYS BP GREATER THAN 160 MMHG Lansoprazole (Prevacid Solutab) 30 mg NG/OG DAILY [facility] Magnesium Oxide (Mag-Ox) 800 mg PO UNSCH PRN PRN Reason: For Magnesium 1.2 - 1.6 mg/dL Ondansetron HCl (Zofran Odt) 4 mg PO Q6H PRN PRN Reason: NAUSEA OR VOMITING Potassium Bicarb/Potassium Chloride (K-Lyte Cl Eff) 50 meq PO ONCE [facility] Last Admin: 11/04/17 21:31 Dose: 50 meq Potassium Bicarb/Potassium Chloride (K-Lyte Cl Eff) 50 meq PO UNSCH PRN PRN Reason: For Potassium 3.3 - 3.5 mEq/L Potassium Phosphate (K-Phos Original) 2,000 mg PO UNSCH PRN PRN Reason: SEE LABEL COMMENTS Potassium Phosphate (K-Phos Original) 2,000 mg PO Q4H PRN PRN Reason: Phosphorus Less Than 2.5 mg/dL Rifampin (Rifampin) 300 mg PO Q12HR [facility] Last Admin: 11/11/17 22:38 Dose: 300 mg Senna/Docusate Sodium (Liv-Colace) 1 tab PO BID [facility] Last Admin: 11/11/17 20:51 Dose: 1 tab Sodium Chloride (Ns Flush) 2 ml IV.FLUSH BID [facility] Last Admin: 11/11/17 20:52 Dose: 2 ml Sodium Chloride (Ns Flush) 2 ml IV.FLUSH PRN PRN PRN Reason: FLUSH AFTER USING IV ACCESS Allergies/Adverse Reactions: Allergies Allergy/AdvReac Type Severity Reaction Status Date / Time No Known Allergies Allergy Unverified 10/30/17 21:54 Physical Exam Vital signs: Vital Signs 11/11/17 10:00 11/11/17 12:00 11/11/17 12:47 Temperature 100.8 F H Pulse Rate 99 H Respiratory Rate 19 20 27 H Blood Pressure 140/62 Pulse Oximetry 95 11/11/17 16:00 11/11/17 16:31 11/11/17 20:00 Temperature 101.0 F H 100.5 F H Pulse Rate 103 H 96 H Respiratory Rate 22 21 22 Blood Pressure 147/65 H 138/60 Pulse Oximetry 98 99 96 11/11/17 21:59 11/11/17 23:32 11/12/17 00:00 Temperature 101.4 F H Pulse Rate 98 H 100 H Respiratory Rate 24 22 20 Blood Pressure 150/65 H Pulse Oximetry 100 100 100 11/12/17 01:19 11/12/17 03:32 11/12/17 04:00 Temperature 101.1 F H Pulse Rate 87 96 H Respiratory Rate 23 16 18 Blood Pressure 146/66 H Pulse Oximetry 100 96 Intake & Output 11/11/17 11/12/17 11/12/17 18:59 06:59 18:59 Intake Total 2608 / 2608 2394 / 2394 Output Total 2049 215 / 215 Balance 558 / 558 244 / 244 Weight 92 kg Intake: IV 1800 / 1800 1700 / 1700 Diprivan 1000 mg/100 ml Inj 1, 200 / 200 300 / 300 000 mg In 100 ml @ 5 MCG/KG/MIN 2.448 mls/hr IV.CONT TITRATE PRN Rx#:[id number] NS Inj 1,000 ML @ 70 mls/hr IV. 1000 / 1000 1000 / 1000 CONT .[id number] JOHN Rx#:[id number] Levaquin 750 mg Premix Inj 150 150 / 150 ML @ 100 mls/hr IV.SIG Q24H JOHN Rx#:[id number] Prostaphlin Inj 2 GM In NS Inj 200 / 200 400 / 400 100 ML @ 200 mls/hr IV.SIG Q4H JOHN Rx#:[id number] fentaNYL 10 mcg/mL Premix Drip 250 / 250 2,500 mcg In 250 ml @ 50 MCG/HR 5 mls/hr IV.SIG TITRATE PRN Rx #:[id number] Tube Feeding 608 / 608 574 / 574 Water Bolus Amount 200 / 200 120 / 120 Output: Urine Amount (Catheter) 2049 / 2149 Condom 2049 Other: # Voids 1 Date of Last Bowel Movement 11/11/17 11/12/17 # Bowel Movements 1 # Incontinent Bowel Movements 1 Narrative: pupil = fully sedated on vent - Urinary Catheter Management Indwelling Urethral Catheter Cath placed during this visit: no Reason for continuing: Not indwelling catheter Condom Cath placed during this visit: yes Reason for continuing: Not indwelling catheter Insertion date: 11/11/17 Straight Cath placed during this visit: no Reason for continuing: Not indwelling catheter Objective Laboratory Results - last 24 hr 11/12/17 11/12/17 11/12/17 00:51 04:50 04:56 WBC 7.9 RBC 3.06 L Hgb 8.7 L Hct 26.4 L MCV 86.4 MCH 28.5 MCHC 32.9 RDW 13.5 Plt Count 179 MPV 9.1 Neut % (Auto) 73.6 H Lymph % (Auto) 18.2 Kidder % (Auto) 5.9 Eos % (Auto) 1.5 Baso % (Auto) 0.8 Neut # (Auto) 5.8 Lymph # (Auto) 1.4 Kidder # (Auto) 0.5 Eos # (Auto) 0.1 Baso # (Auto) 0.1 WBC Differential . Differential Comment Auto diff final PT INR APTT Puncture Site Patient Temperature O2 Saturation ABG pH ABG pCO2 ABG pO2 ABG HCO3 ABG O2 Content ABG Base Excess ABG Methemoglobin Eliel Test Hemoglobin Carboxyhemoglobin O2 Delivery Device Vent Setting Inspired O2 Critical Value Sodium Potassium Chloride Carbon Dioxide Anion Gap BUN Creatinine Estimated GFR POC Glucose 102 Random Glucose Calcium Phosphorus Magnesium Total Bilirubin AST ALT Alkaline Phosphatase Ammonia 32 Total Protein Albumin 11/12/17 11/12/17 11/12/17 04:56 04:56 06:07 WBC RBC Hgb Hct MCV MCH MCHC RDW Plt Count MPV Neut % (Auto) Lymph % (Auto) Kidder % (Auto) Eos % (Auto) Baso % (Auto) Neut # (Auto) Lymph # (Auto) Kidder # (Auto) Eos # (Auto) Baso # (Auto) WBC Differential Differential Comment PT 10.5 INR 1.0 APTT 26.6 Puncture Site Right radial Patient Temperature 98.6 O2 Saturation 96 ABG pH 7.45 H ABG pCO2 33 L ABG pO2 97 ABG HCO3 23 ABG O2 Content 11.8 L ABG Base Excess -1.0 ABG Methemoglobin 1.1 Eliel Test Present Hemoglobin 8.7 L Carboxyhemoglobin 1.3 O2 Delivery Device Vent Vent Setting Prvc/ac Inspired O2 35 Critical Value No Sodium 142 Potassium 3.7 Chloride 112 H Carbon Dioxide 24.5 Anion Gap 6 BUN 11 Creatinine 0.92 Estimated GFR Greater than 89 POC Glucose Random Glucose 120 H Calcium 7.7 L Phosphorus 3.6 Magnesium 2.2 Total Bilirubin 0.6 AST 26 ALT 13 Alkaline Phosphatase 56 Ammonia Total Protein 7.7 Albumin 1.5 L 11/12/17 07:00 WBC RBC Hgb Hct MCV MCH MCHC RDW Plt Count MPV Neut % (Auto) Lymph % (Auto) Kidder % (Auto) Eos % (Auto) Baso % (Auto) Neut # (Auto) Lymph # (Auto) Kidder # (Auto) Eos # (Auto) Baso # (Auto) WBC Differential Differential Comment PT INR APTT Puncture Site Patient Temperature O2 Saturation ABG pH ABG pCO2 ABG pO2 ABG HCO3 ABG O2 Content ABG Base Excess ABG Methemoglobin Eliel Test Hemoglobin Carboxyhemoglobin O2 Delivery Device Vent Setting Inspired O2 Critical Value Sodium Potassium Chloride Carbon Dioxide Anion Gap BUN Creatinine Estimated GFR POC Glucose 116 H Random Glucose Calcium Phosphorus Magnesium Total Bilirubin AST ALT Alkaline Phosphatase Ammonia Total Protein Albumin Microbiology 11/09/17 10:20 Aerobic Blood Culture - Preliminary Blood - Peripheral No growth in 2 days Anaerobic Blood Culture - Final QNS - See aerobic report. 11/08/17 10:49 Aerobic Blood Culture - Preliminary Blood - Peripheral No growth in 3 days Anaerobic Blood Culture - Preliminary No growth in 3 days 11/07/17 06:20 Aerobic Blood Culture - Final Blood - Peripheral Staphylococcus aureus Anaerobic Blood Culture - Preliminary No growth in 4 days 11/06/17 05:39 Aerobic Blood Culture - Final Blood - Peripheral Staphylococcus aureus Anaerobic Blood Culture - Final No growth in 5 days Review/Management - Review/Management Plan: imp mri 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 when off sedatives?
--- NOTE | 2017-11-12 08:49 | P.PNCC ---
Subjective Subjective Remarks/Hospital Course: This is a 31yM who recently presented to the emergency department on 10/30 with subjective fevers and back pain. At that time he was given an MRI of the spine due to his IV drug use and concern for endocarditis. His MRI spine was negative and he was discharged home. Blood cultures that were drawn at that time returned 4 out of 4 bottles with MSSA. Patient was attempted to be contacted at his home to return for medical attention, but he was unable to be contacted. He represents today with acute altered mental status and was found on the floor of his apartment. He is aphasic and has significant right-sided hemiparesis/weakness. CT brain demonstrates a small amount of subarachnoid blood and small areas of decreased density suggestive of acute infarcts. MRI confirms multiple small areas of infarct. I evaluated the patient and he is quite altered and aphasic and no additional information is available from him. I performed bedside critical care ultrasonography which demonstrates a large mobile mass on the aortic valve with associated severe aortic regurgitation. No pericardial effusion. In addition all this, the patient has a new finding of an INR of 9.8 as well as an elevated salicylate level of 28. Given there is recent community history seated to suggest that some of the IV drugs in the area have been contaminated with rapid poison and or Coumadin/warfarin, I have a high degree of suspicion that the patient may have injected contaminated IV drugs. I have contacted poison control who is following along. We have ordered 4 units of FFP emergently to be released to the patient. We have called pharmacy and due to a national shortage of the drug, we do not have any K Centra available. I have also ordered FEIBA as an alternative to K Centra. 11/05: INR has been corrected to normal. Repeat head CT shows no evidence of additional bleed. Noteworthy on head CT is new edema involving most of the temporal lobe on the left side, arising in the area of ischemic infarct. Other smaller defects are noted bilaterally. Blood cultures are growing MSSA, consistent with his IV drug use and aortic valve vegetation. Bilateral lung infiltrates noted on today's chest x-ray consistent with prehospital aspiration. 11/06: Tolerating spontaneous breathing trial with acceptable pressure support but oxygenation markedly impaired due to prehospital aspiration pneumonitis. No change in neurologic status. Cultures continued to be positive for staph aureus. 11/07: Continues to tolerate spontaneous breathing trials with acceptable pressure support. Minimal change in neurologic status and I cannot get him to follow any commands. Pre-albumin surprisingly low at 11, continue aggressive nutritional support. 11/08: Extubated himself yesterday morning and tolerated spontaneous breathing with supplemental oxygen during the day. In the early evening he became unable to protect his airway and his respiratory effort became much weaker. He required endotracheal intubation and mechanical ventilation thereafter. While extubated he did respond to simple commands including moving his left hand. He did repeat simple 2 and 3 word statements. The chest x-ray following reintubation is consistent with heart failure although the hemodynamics belie that, more consistent with an inflammatory process. 11/09: Tolerating ongoing diuresis. Gas exchange improving. Difficult to assess while sedated we will aim for re-extubation. 11/10: Ongoing septic pattern. First extubation was poorly tolerated by the patient and he remains to obtunded to extubate at this time. Converted from APRV back to conventional ventilation and now reducing PEEP. SUBJECTIVE: 11/11: Seen and examined. Remains febrile T-max of 101. Hemodynamically stable. Positive BM today. Tolerating tube feeding. 11/12: Remains intubated sedated with propofol and fentanyl. T-max 101.4. FiO2 35% but PEEP remains high at 12. Start weaning PEEP as tolerated. Attempt CPAP trials Objective Vital Signs / I&O: Vital Signs 11/11/17 10:00 11/11/17 12:00 11/11/17 12:47 Temperature 100.8 F H Pulse Rate 99 H Respiratory Rate 19 20 27 H Blood Pressure 140/62 Pulse Oximetry 95 11/11/17 16:00 11/11/17 16:31 11/11/17 20:00 Temperature 101.0 F H 100.5 F H Pulse Rate 103 H 96 H Respiratory Rate 22 21 22 Blood Pressure 147/65 H 138/60 Pulse Oximetry 98 99 96 11/11/17 21:59 11/11/17 23:32 11/12/17 00:00 Temperature 101.4 F H Pulse Rate 98 H 100 H Respiratory Rate 24 22 20 Blood Pressure 150/65 H Pulse Oximetry 100 100 100 11/12/17 01:19 11/12/17 03:32 11/12/17 04:00 Temperature 101.1 F H Pulse Rate 87 96 H Respiratory Rate 23 16 18 Blood Pressure 146/66 H Pulse Oximetry 100 96 Intake & Output 11/11/17 11/12/17 11/12/17 18:59 06:59 18:59 Intake Total 2608 / 2608 2394 / 2394 Output Total 2049 / 2149 Balance 558 / 558 244 / 244 Weight 92 kg Intake: IV 1800 / 1800 1700 / 1700 Diprivan 1000 mg/100 ml Inj 1, 200 / 200 300 / 300 000 mg In 100 ml @ 5 MCG/KG/MIN 2.448 mls/hr IV.CONT TITRATE PRN Rx#:[id number] NS Inj 1,000 ML @ 70 mls/hr IV. 1000 / 1000 1000 / 1000 CONT .[id number] JONATHON Rx#:[id number] Levaquin 750 mg Premix Inj 150 150 / 150 ML @ 100 mls/hr IV.SIG Q24H JONATHON Rx#:[id number] Prostaphlin Inj 2 GM In NS Inj 200 / 200 400 / 400 100 ML @ 200 mls/hr IV.SIG Q4H JONATHON Rx#:[id number] fentaNYL 10 mcg/mL Premix Drip 250 / 250 2,500 mcg In 250 ml @ 50 MCG/HR 5 mls/hr IV.SIG TITRATE PRN Rx #:[id number] Tube Feeding 608 / 608 574 / 574 Water Bolus Amount 200 / 200 120 / 120 Output: Urine Amount (Catheter) 2049 Condom 2049 Other: # Voids 1 Date of Last Bowel Movement 11/11/17 11/12/17 # Bowel Movements 1 # Incontinent Bowel Movements 1 Result Diagrams: 11/12/17 04:56 11/12/17 04:56 Objective Remarks: GENERAL: 31-year-old male currently orotracheally intubated HEENT: Normocephalic. Atraumatic. Pupils 4 mm, equal, round, reactive, conjugate. Mucous membranes are moist NECK: Trachea is midline. Orotracheal route intubation. CHEST: Equal chest rise. Few crackles throughout. No wheezing CARDIOVASCULAR: S1, S2. No S4. 2/6 murmur right upper sternal border ABDOMEN: Soft, nontender, nondistended. No guarding. Bowel sounds present. MUSCULOSKELETAL: No peripheral edema. Multiple linear scars over the bilateral upper and lower extremities consistent with needle fan. Positive Janeway lesions. NEUROLOGICAL: RASS -2. Musculoskeletal strength on the right is 1/5 at best in both the upper and lower extremities. Musculoskeletal strength on the left is 4 out of 5. Withdraws left side extremities to noxious stimulation. Intermittent left hand grasp to command on sedation hold previously Assessment and Plan - Assessment and Plan Plan: Neurologic/Psych: Acute 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 Aphasia Hemorrhagic Conversion? Subarachnoid hemorrhage IV drug abuse THC use Currently on propofol at 35 mcg/kg/min/fentanyl drips 50 mg an hour for sedation /analgesia while intubated Daily sedation vacation. Use Precedex if needed to facilitate weaning trials - MRI brain revealed left posterior MCA CVA also involving the right occipital region and left caudate nucleus likely embolic - neurosurgery/neurology consultation completed. Dr. Barton no intervention. Dr. Hatfield following - EEG: no evidence of ictal activity -Worsening edema left temporal lobe on CAT scan. Urine drug screen positive for fentanyl and salicylates and THC Respiratory: Hypoxemic respiratory failure Prehospital aspiration pneumonitis/MSSA -Required intubation for inability to control airway PRVC 14/600/1.2/, reduce PEEP to 8 Ventilator bundle Albuterol/ipratropium aerosols every 4 hours with albuterol aerosols every 2 hours as needed for dyspnea Ventilator bundle Chest x-ray stable Cardiovascular: Mixed septic/cardiogenic shock Severe aortic regurgitation Large aortic valve vegetation 1x1.7cm Mild aortic stenosis from vegetation NS @ 50cc/hr, mild AK I is resolved. Discontinue IV fluid, give Lasix 40 mg IV 1 for some fluid overload on chest x-ray 2D echocardiogram 11/04 revealed EF 60-65%. Severe AR. Vegetation 1.01.7 cm Currently not requiring vasopressors and/or antihypertensives At present he is not a candidate for valve replacement surgery Renal/: Acute kidney injury -Continue Fontaine catheter - monitor uop - secondary to poor perfusion from cardiac output and severe sepsis -- Strict I/Os FEN/GI: Lactic Acidosis -resolved Acute protein calorie malnutrition- severe, temporal muscle wasting Hypoalbuminemia Tube feedings with Glucerna 1.5 goal 60 cc hours per nutrition recommendations ICU electrolyte protocol. Lansoprazole for GI prophylaxis Docusate sodium/senna 1 tablet twice daily for bowel regimen. 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 Complete levofloxacin stop date 11/11 Blood cultures positive for MSSA 11/07, and . Subsequent 11/11/11/09 and no growth to date. Sputum positive for MSSA At present he is not a candidate for valve replacement surgery, seen by Dr. Barton before Endocrine: -- SSI aspart low protocol every 6 hours Prophylaxis: GI Prophylaxis Lansoprazole DVT Prophylaxis -- SCDs holding pharmacologic DVT prophylaxis due to risks of hemorrhagic conversion, until cleared by neurology and neurosurgery Lines: Right subclavian CVL fontaine Critical care time 30 minutes aside from procedures.
[2017-11-12] MEDS: Chlorhexidine 0.12% Oral Kit 15 ML UDC OROPHARYNG SCH ×2 (09:12→20:07)
[2017-11-12] MEDS: Senna/Docusate Sodium 8.6/50 MG Tablet PO SCH ×2 (09:13→20:07)
--- NOTE | 2017-11-12 11:04 | CT ---
EXAM DATE: 11/12/2017 10:49 AM EDT AGE/SEX: 31 years / Male INDICATIONS: Follow up stroke. CLINICAL DATA: This is the patient's subsequent encounter. Patient reports that signs and symptoms h ave been present for 1 week and indicates a pain score of Nonresponsive. MEDICAL/SURGICAL HISTORY: Hypertension. Diabetes. Stroke. None. RADIATION DOSE: 38.41 CTDI (mGy) COMPARISON: [facility] [place], CT HEAD W/O CONTRAST, 11/06/2017. . TECHNIQUE: CT of the head without contrast. Using automated exposure control and adjustment of the mA and/or kV according to patient size, radiation dose was kept as low as reasonably achievable to ob tain optimal diagnostic quality images. DICOM format image data is available electronically for revi ew and comparison. FINDINGS: The examination demonstrates a sizable area of edema within the left posterior parietal cortex. This is similar in appearance to the patient's previous examination dated 11/06/2017. There is no evidence of hemorrhage within this. There is minimal associated mass effect. There is no significant midline s hift. No abnormal extra-axial fluid collections are seen. The appearance of the posterior fossa is unremarkable. The osseous structures of the skull are grossly intact. CONCLUSION: 1. Moderate-sized area of edema involving the left posterior parietal cortex unchanged from previous of 11/06/2017. Findings are most consistent with cortical infarct. There is no evidence of hemorrhage within this. . Electronically signed by: Thiago Gamez MD 11/12/2017 11:02 AM EDT
[2017-11-12] MEDS: Hypromellose 0.3% Opth Gel 10 GM Bottle EACH EYE SCH ×2 (11:39→20:07)
[2017-11-12] MEDS: levETIRAcetam 1000mg/100mL Inj 100 ML IV.SIG SCH ×2 (12:23→21:58)
--- NOTE | 2017-11-12 13:26 | MG ---
cc: Kelsey Grande MD EEG NUMBER: [id number] PATIENT INFORMATION: In room 1311 intubated with 35 mcg of Diprivan, 50 mcg of fentanyl with photic stimulation performed. EEG is done on sedation as stated. 11/04/2017 EEG showed bifrontal slowing, moderate encephalopathy. CT shows edema, moderate sized area of edema involving the left posterior parietal cortex unchanged from prior CT from 11/06/2017 consistent with cortical infarct. The patient apparently had a seizure this morning described as quivering downward gaze given Ativan, paralyzed. He is hemiparetic on the right side. A 31-year-old male admitted with history of IV drug use, hypertension, diabetes, on Diprivan, fentanyl, Tylenol, oxacillin and rifampin. DESCRIPTION OF RECORD: There is overall moderate slowing of background 1-2 Hz. A lot of artifact. Some movements of the leg, but no apparent epileptic discharges. There is some more slowing on the left hemisphere compared to the right. Right side is more reactive. Photic stimulation does show a posterior driving response. IMPRESSION: Abnormal EEG at times with moderate slowing more left compared to the right, likely due to structural lesion such as stroke, but no apparent evidence of any epileptiform features. Some of the slowing may be due to sedation. Clinical correlation. Kelsey Grande MD DF/DL , 01:12 PM , 01:19 PM
--- NOTE | 2017-11-12 13:53 | P.DIET ---
Nutritional Evaluation Type of nutrition evaluation: follow-up Nutrition consult regarding: Tube Feeding Objective - Diagnosis Sepsis, Stroke Symptoms, r/o septic emboli of the brain - Objective % IBW: 126 (IBW = 142#) Body Weight Used for Calculations: Actual (81.6 kg) Energy Needs - Lower Range (kCal/kg): 25 Energy Needs - Upper Range (kCal/kg): 30 Lower Limit kCal/kg (kCals): 2,040 Lower Limit Protein Factor (Grams per Kg): 1.2 Upper Limit Protein Factor (Grams per Kg): 1.6 Lower Protein Needs (Protein): 98 Upper Protein Needs (Protein): 131 Dietitian Reviewed in Medical Record: Curent medications, Intake & Output, Labs , Tube feeding Objective Comments: Med hx includes IVDU, DM, HTN Feeding - Current Tube Feeding Tube Feeding Rate: 55 Assessment Assessment: Pt remains vented/sedated and needs TFing to meet nutritional needs. Pt is currently receiving Jevity 1.5 @ 55 mls/hr. Recommend goal rate of 60 mls/hr to provide 2160 kcals, 92 gms protein and 1094 mls of free water. Some additional kcals will be provided by propofol (1.1 kcal/ml). Pt with (+) BM and CBW = 92 kg. Recommendations: Jevity 1.5 @ 60 mls/hr goal Dietitian to Monitor: Lab values, Intake & Output, Tube feeding tolerance, Weight change, Medical course
--- NOTE | 2017-11-12 14:18 | P.PNID ---
Subjective Remarks: Patient is a 31-year-old male, who initially presented to [facility] emergency room October 30 complaining of 3 day history of headache. He gave a history of IV drug use. He was not febrile during that visit. WBC was normal. He underwent CT of the brain which was negative. Also underwent MRI of the thoracic and lumbar spine which were both negative for any infection. 2 blood cultures were done at that time and he was discharged. He came back to the hospital after his friends found him on the kitchen floor. He was reportedly unable to move his right side. And he was also noted to have some difficulty speaking. He remains afebrile. His white count is elevated. His CT of the head is now showing some findings in the right parietal area, as well as faint subarachnoid hemorrhage. CTA of the neck is negative. He has evidence of right-sided weakness, as well as expressive aphasia. The 2 blood cultures done on his ED visit is now reported as growing MSSA. Infectious disease consultation has been requested to evaluate the patient. Notes reviewed Febrile all night, Temps 99+ today Sedated on the vent BP ok CT head no change in edema No new (+) BC BC (+) 11/04-11/07 Sputum with MSSA WBC normal Platelets improving CTS evaluation noted - not a surgical candidate MRI head, with multiple areas of infarct CT head repeat, with edema in temporal lobe CXR with increased infiltrates Echocardiogram: The left ventricular systolic function is normal with an estimated ejection fraction in the range of 60-65%. Trace mitral valve regurgitation. Large vegetation noted on the aortic valve (1.7cm x 1.0cm) Mild obstruction of the aortic valve due to vegetation with a mean gradient of 11 mmHg Severe eccentric aortic regurgitation There is trace tricuspid valve regurgitation. Antibiotics: Oxacillin Rifampin Levaquin - finished 11/11 Lines: R central line Past Medical History: Diabetes Hypertension IVDU Allergies/Adverse Reactions: Allergies No Known Allergies Allergy (Unverified 10/30/17 21:54) Objective Vital Signs 11/11/17 16:00 11/11/17 16:31 11/11/17 20:00 Temperature 101.0 F H 100.5 F H Pulse Rate 103 H 96 H Respiratory Rate 22 21 22 Blood Pressure 147/65 H 138/60 Pulse Oximetry 98 99 96 11/11/17 21:59 11/11/17 23:32 11/12/17 00:00 Temperature 101.4 F H Pulse Rate 98 H 100 H Respiratory Rate 24 22 20 Blood Pressure 150/65 H Pulse Oximetry 100 100 100 11/12/17 01:19 11/12/17 03:32 11/12/17 04:00 Temperature 101.1 F H Pulse Rate 87 96 H Respiratory Rate 23 16 18 Blood Pressure 146/66 H Pulse Oximetry 100 96 11/12/17 08:32 11/12/17 11:14 11/12/17 11:15 Temperature Pulse Rate 99 H 100 H Respiratory Rate 22 22 Blood Pressure Pulse Oximetry 100 100 98 Intake & Output 11/11/17 11/12/17 11/12/17 18:59 06:59 18:59 Intake Total 2608 / 2608 2394 / 2394 200 / 200 Output Total 2049 / 2149 Balance 558 / 558 244 / 244 200 / 200 Weight 92 kg Intake: IV 1800 / 1800 1700 / 1700 200 / 200 Diprivan 1000 mg/100 ml Inj 1, 200 / 200 300 / 300 100 / 100 000 mg In 100 ml @ 5 MCG/KG/MIN 2.448 mls/hr IV.CONT TITRATE PRN Rx#:[id number] NS Inj 1,000 ML @ 70 mls/hr IV. 1000 / 1000 1000 / 1000 CONT .[id number] JONATHON Rx#:[id number] Levaquin 750 mg Premix Inj 150 150 / 150 ML @ 100 mls/hr IV.SIG Q24H JONATHON Rx#:[id number] Prostaphlin Inj 2 GM In NS Inj 200 / 200 400 / 400 100 / 100 100 ML @ 200 mls/hr IV.SIG Q4H JONATHON Rx#:[id number] fentaNYL 10 mcg/mL Premix Drip 250 / 250 2,500 mcg In 250 ml @ 50 MCG/HR 5 mls/hr IV.SIG TITRATE PRN Rx #:[id number] Tube Feeding 608 / 608 574 / 574 Water Bolus Amount 200 / 200 120 / 120 Output: Urine Amount (Catheter) 2049 Condom 2049 Other: # Voids 1 Date of Last Bowel Movement 11/11/17 11/12/17 # Bowel Movements 1 # Incontinent Bowel Movements 1 11/11/17 11:55 Blood - Peripheral Aerobic Blood Culture - Preliminary No growth in 1 day 11/11/17 11:55 Blood - Peripheral Anaerobic Blood Culture - Preliminary No growth in 1 day 11/11/17 11:50 Blood - Peripheral Aerobic Blood Culture - Preliminary No growth in 1 day 11/11/17 11:50 Blood - Peripheral Anaerobic Blood Culture - Preliminary No growth in 1 day 11/09/17 10:20 Blood - Peripheral Aerobic Blood Culture - Preliminary No growth in 3 days 11/09/17 10:20 Blood - Peripheral Anaerobic Blood Culture - Final QNS - See aerobic report. 11/08/17 10:49 Blood - Peripheral Aerobic Blood Culture - Preliminary No growth in 4 days 11/08/17 10:49 Blood - Peripheral Anaerobic Blood Culture - Preliminary No growth in 4 days 11/07/17 06:20 Blood - Peripheral Aerobic Blood Culture - Final Staphylococcus aureus 11/07/17 06:20 Blood - Peripheral Anaerobic Blood Culture - Final No growth in 5 days 11/06/17 05:39 Blood - Peripheral Aerobic Blood Culture - Final Staphylococcus aureus 11/06/17 05:39 Blood - Peripheral Anaerobic Blood Culture - Final No growth in 5 days 11/05/17 04:22 Blood - Peripheral Aerobic Blood Culture - Final Staphylococcus aureus 11/05/17 04:22 Blood - Peripheral Anaerobic Blood Culture - Final No growth in 5 days Lab - Hematology Results 11/11/17 11/12/17 06:06 04:56 WBC 7.7 7.9 RBC 3.24 L 3.06 L Hgb 9.3 L 8.7 L Hct 27.9 L 26.4 L MCV 86.0 86.4 MCH 28.6 28.5 MCHC 33.3 32.9 RDW 13.6 13.5 Plt Count 200 179 MPV 9.4 9.1 Neut % (Auto) 73.6 H Lymph % (Auto) 18.2 Wharton % (Auto) 5.9 Eos % (Auto) 1.5 Baso % (Auto) 0.8 Neut # (Auto) 5.8 Lymph # (Auto) 1.4 Wharton # (Auto) 0.5 Eos # (Auto) 0.1 Baso # (Auto) 0.1 WBC Differential . Differential Comment Auto diff final Lab - Chemistry Results 11/11/17 11/12/17 11/12/17 06:06 00:51 04:50 Sodium 147 H Potassium 4.0 Chloride 116 H Carbon Dioxide 24.9 Anion Gap 6 BUN 14 Creatinine 0.99 Estimated GFR 87 L POC Glucose 102 Random Glucose 104 Calcium 7.6 L Phosphorus 3.7 Magnesium 2.1 Total Bilirubin 0.5 AST 23 ALT 15 Alkaline Phosphatase 60 Ammonia 32 Total Protein 7.9 Albumin 1.6 L 11/12/17 11/12/17 11/12/17 04:56 07:00 12:44 Sodium 142 Potassium 3.7 Chloride 112 H Carbon Dioxide 24.5 Anion Gap 6 BUN 11 Creatinine 0.92 Estimated GFR Greater than 89 POC Glucose 116 H 96 Random Glucose 120 H Calcium 7.7 L Phosphorus 3.6 Magnesium 2.2 Total Bilirubin 0.6 AST 26 ALT 13 Alkaline Phosphatase 56 Ammonia Total Protein 7.7 Albumin 1.5 L Imaging: ITS Impressions Head CTA 11/04/17 05:39 CONCLUSION: 1. Patient is left vertebral dominant. 2. Otherwise, intracranial vessels are all patent without embolic or aneurysmal disease. Neck CTA 11/04/17 05:39 CONCLUSION: 1. Patient is left vertebral dominant. 2. Otherwise, arch and cervical vessels are patent throughout. Head MRI 11/04/17 06:36 CONCLUSION: 1. Acute infarcts as described above suggesting embolic occlusion as described above. Largest areas in the left posterior sylvian region. Chest X-Ray 11/12/17 06:00 CONCLUSION: 1. Interval improvement in pulmonary edema. 2. Moderate residual airspace disease remains as well as an apparent small left effusion. Head CT 11/12/17 09:37 CONCLUSION: 1. Moderate-sized area of edema involving the left posterior parietal cortex unchanged from previous of 11/06/2017. Findings are most consistent with cortical infarct. There is no evidence of hemorrhage within this. . Physical Exam: GENERAL: Sedated on the vent SKIN: Warm and dry. No generalized rash. Embolic lesions better HEAD: Atraumatic. Normocephalic. No temporal wasting, or tenderness. EYES: [place] conjunctiva. Has petechia on L conjunctiva. Pupils equal, round and reactive to light. No scleral icterus. No injection or drainage. EARS, NOSE AND THROAT: Nose without bleeding or purulent nasal discharge. No sinus tenderness. Mucous membranes pink and moist. NECK: Trachea midline. Supple and not tender, no meningeal signs CARDIOVASCULAR: Regular rate and rhythm. RESPIRATORY: Bilateral coarse breath sounds ABDOMEN: Soft, nondistended. Bowel sounds present and normoactive. No reaction to palpation. EXTREMITIES: No clubbing, cyanosis, or edema. No joint effusion. 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
[2017-11-12] MEDS: ceFAZolin 2 GM Premix Inj 2 GM/50 ML PIGGYBACK IV.SIG SCH ×2 (16:03→23:32)
[2017-11-13] MEDS: Propofol 1000 mg/100 ml Inj 1,000 MG/100 ML BOTTLE IV.CONT PRN (02:11)
[2017-11-13] MEDS: fentaNYL 10 mcg/mL Premix Drip 2,500 MCG/250 ML BAG IV.SIG PRN (04:29)
[2017-11-13] MEDS: Oral Hygiene Kit OROPHARYNG SCH ×3 (06:43→21:07)
[2017-11-13] MEDS: Insulin NovoLOG Aspart Correctional Sugar Inj SQ SCH ×3 (06:43→21:07)
--- NOTE | 2017-11-13 08:20 | P.PNNEU ---
Subjective Subjective Comments: some leg shakes yest coming off sedation ? sz or not Active Medications: Active Medications Acetaminophen (Tylenol) 650 mg PO Q6H PRN PRN Reason: TEMPERATURE > 101 F Last Admin: 11/12/17 01:19 Dose: 650 mg Albuterol (Duoneb Neb (John)) 1 ampul NEB Q4HR NEB [facility] Last Admin: 11/13/17 03:31 Dose: 1 ampul Albuterol (Albuterol Neb (Prn)) 2.5 mg NEB Q2HR NEB PRN PRN Reason: DYSPNEA Artificial Tears (Genteal Severe Dry Eye Relief 0.3% Opth Gel) 1 drops EACH EYE BID [facility] Last Admin: 11/12/17 20:07 Dose: 1 drops Chlorhexidine Gluconate (Peridex 0.12% Oral Kit) 15 ml OROPHARYNG BID@0800, 2000 [facility] Last Admin: 11/12/17 20:07 Dose: 15 ml Clonidine HCl (Catapres) 0.1 mg PO Q6H PRN PRN Reason: SBP>160, DBP>90 Dextrose (D50w Vial) 50 ml IV.PUSH UNSCH PRN PRN Reason: PER HYPOGLYCEMIA PROTOCOL Flumazenil (Romazecon Inj) 0.2 mg IV.PUSH Q1M PRN PRN Reason: OVERSEDATION Glucagon (Glucagon Inj) 1 mg OTHER PRN PRN PRN Reason: for Hypoglycemia Protocol Midazolam HCl (Versed Inj) 50 mg in 50 mls @ 2 mls/hr IV.CONT TITRATE PRN; Protocol PRN Reason: Per Protocol Last Titration: 11/05/17 15:30 Dose: 0 mg/hr, 0 mls/hr Fentanyl (Fentanyl 10 Mcg/Ml Premix Drip) 2,500 mcg in 250 mls @ 5 mls/hr IV.SIG TITRATE PRN; Protocol PRN Reason: Per Protocol Last Admin: 11/13/17 04:29 Dose: 50 mcg/hr, 5 mls/hr Propofol (Diprivan 1000 Mg/100 Ml Inj) 1,000 mg in 100 mls @ 2.448 mls/hr IV.CONT TITRATE PRN; Protocol PRN Reason: Per Protocol Last Admin: 11/13/17 02:11 Dose: 35 mcg/kg/min, 17.14 mls/hr Levetiracetam (Keppra 1000 Mg/100 Ml Premix) 100 mls @ 400 mls/hr IV.SIG Q12H [facility] Last Infusion: 11/12/17 22:45 Dose: Infused Cefazolin Sodium/Dextrose (Ancef 2 Gm Premix Inj) 2 gm in 50 mls @ 100 mls/hr IV.SIG Q8H [facility] Last Infusion: 11/13/17 00:35 Dose: Infused Sodium Chloride (Ns Inj) 1,000 mls @ 70 mls/hr IV.CONT .[id number] [facility] Last Admin: 11/12/17 16:03 Dose: 70 mls/hr Magnesium Sulfate Inj 4 gm/ (Sodium Chloride) 100 mls @ 50 mls/hr IV.SIG UNSCH PRN PRN Reason: For Magnesium 0.9 - 1.1 mg/dL Magnesium Sulfate Inj 2 gm/ (Sodium Chloride) 100 mls @ 50 mls/hr IV.SIG UNSCH PRN PRN Reason: For Magnesium 1.2 - 1.6 mg/dL Potassium Chloride (Kcl 40 Meq Premix Inj) 40 meq in 100 mls @ 25 mls/hr IV.SIG Q2H PRN PRN Reason: For Potassium 2.8 - 3.2 mEq/L Potassium Chloride (Kcl 20 Meq Premix Inj) 20 meq in 100 mls @ 50 mls/hr IV.SIG Q2H PRN PRN Reason: For Potassium 3.3 - 3.5 mEq/L Last Infusion: 11/05/17 07:00 Dose: Infused Potassium Chloride (Kcl 40 Meq Premix Inj) 40 meq in 100 mls @ 25 mls/hr IV.SIG UNSCH PRN PRN Reason: For Potassium 3.3 - 3.5 mEq/L Last Infusion: 11/06/17 02:06 Dose: Infused Potassium Chloride (Kcl 20 Meq Premix Inj) 20 meq in 100 mls @ 50 mls/hr IV.SIG Q2H PRN PRN Reason: For Potassium 2.8 - 3.2 mEq/L Last Infusion: 11/05/17 07:00 Dose: Infused Potassium Phosphate 30 mmol/ (Sodium Chloride) 260 mls @ 42 mls/hr IV.SIG UNSCH PRN PRN Reason: SEE LABEL COMMENTS Sodium Phosphate 30 mmol/ (Sodium Chloride) 260 mls @ 42 mls/hr IV.SIG UNSCH PRN PRN Reason: For Phosphorus < 2.5 mg/dL Insulin Aspart (Novolog Insulin Correctional Sugar Inj) 0 unit SQ Q6HR [facility]; Protocol Last Admin: 11/13/17 06:43 Dose: Not Given Labetalol HCl (Trandate Inj) 10 mg IV.PUSH Q1H PRN PRN Reason: SYS BP GREATER THAN 160 MMHG Lansoprazole (Prevacid Solutab) 30 mg NG/OG DAILY [facility] Last Admin: 11/12/17 09:12 Dose: 30 mg Magnesium Oxide (Mag-Ox) 800 mg PO UNSCH PRN PRN Reason: For Magnesium 1.2 - 1.6 mg/dL Ondansetron HCl (Zofran Odt) 4 mg PO Q6H PRN PRN Reason: NAUSEA OR VOMITING Potassium Bicarb/Potassium Chloride (K-Lyte Cl Eff) 50 meq PO ONCE [facility] Last Admin: 11/04/17 21:31 Dose: 50 meq Potassium Bicarb/Potassium Chloride (K-Lyte Cl Eff) 50 meq PO UNSCH PRN PRN Reason: For Potassium 3.3 - 3.5 mEq/L Potassium Phosphate (K-Phos Original) 2,000 mg PO UNSCH PRN PRN Reason: SEE LABEL COMMENTS Potassium Phosphate (K-Phos Original) 2,000 mg PO Q4H PRN PRN Reason: Phosphorus Less Than 2.5 mg/dL Rifampin (Rifampin) 300 mg PO Q12HR [facility] Last Admin: 11/12/17 20:06 Dose: 300 mg Senna/Docusate Sodium (Liv-Colace) 1 tab PO BID [facility] Last Admin: 11/12/17 20:07 Dose: 1 tab Sodium Chloride (Ns Flush) 2 ml IV.FLUSH BID [facility] Last Admin: 11/12/17 20:07 Dose: 2 ml Sodium Chloride (Ns Flush) 2 ml IV.FLUSH PRN PRN PRN Reason: FLUSH AFTER USING IV ACCESS Allergies/Adverse Reactions: Allergies Allergy/AdvReac Type Severity Reaction Status Date / Time No Known Allergies Allergy Unverified 10/30/17 21:54 Physical Exam Vital signs: Vital Signs 11/12/17 08:32 11/12/17 11:14 11/12/17 11:15 Temperature Pulse Rate 99 H 100 H Respiratory Rate 22 22 Blood Pressure Pulse Oximetry 100 100 98 11/12/17 12:00 11/12/17 16:00 11/12/17 16:38 Temperature 99.9 F H 98.4 F Pulse Rate 102 H 90 103 H Respiratory Rate 17 15 24 Blood Pressure 144/66 H 134/60 Pulse Oximetry 100 100 100 11/12/17 20:00 11/12/17 20:28 11/12/17 22:01 Temperature 101.1 F H Pulse Rate 90 97 H Respiratory Rate 19 22 20 Blood Pressure 144/63 H Pulse Oximetry 100 97 95 11/12/17 23:43 11/13/17 00:00 11/13/17 02:12 Temperature 100.9 F H Pulse Rate 96 H 102 H Respiratory Rate 17 20 15 Blood Pressure 151/67 H Pulse Oximetry 100 100 11/13/17 03:34 11/13/17 04:00 11/13/17 04:39 Temperature 100.9 F H Pulse Rate 97 H 94 H Respiratory Rate 15 16 16 Blood Pressure 136/63 Pulse Oximetry 100 97 Intake & Output 11/12/17 11/13/17 11/13/17 18:59 06:59 18:59 Intake Total 2336 / 2336 1289 / 1289 Output Total 4950 / 4950 1650 / 1650 Balance -2614 / -2614 -361 / -361 Weight 88.4 kg Intake: IV 1550 / 1550 600 / 600 Diprivan 1000 mg/100 ml Inj 1, 200 / 200 200 / 200 000 mg In 100 ml @ 5 MCG/KG/MIN 2.448 mls/hr IV.CONT TITRATE PRN Rx#:[id number] NS Inj 1,000 ML @ 70 mls/hr IV. 1000 / 1000 CONT .[id number] JOHN Rx#:[id number] Prostaphlin Inj 2 GM In NS Inj 200 / 200 100 ML @ 200 mls/hr IV.SIG Q4H JOHN Rx#:[id number] Ancef 2 GM Premix Inj 2 gm In 50 / 50 50 / 50 50 ml @ 100 mls/hr IV.SIG Q8H JONH Rx#:[id number] fentaNYL 10 mcg/mL Premix Drip 250 / 250 2,500 mcg In 250 ml @ 50 MCG/HR 5 mls/hr IV.SIG TITRATE PRN Rx #:[id number] Keppra 1000 mg/100 mL Premix 100 / 100 100 / 100 100 ML @ 400 mls/hr IV.SIG Q12H JOHN Rx#:[id number] Tube Feeding 586 / 586 599 / 599 Tube Irrigant 200 / 200 Water Bolus Amount 90 / 90 Output: Urine Amount (Catheter) 4950 / 4950 1650 / 1650 Condom 4950 / 4950 1650 / 1650 Other: # Voids 1 Date of Last Bowel Movement 11/12/17 11/12/17 # Bowel Movements 1 0 Narrative: pupil = fully sedated on vent still - Urinary Catheter Management Indwelling Urethral Catheter Cath placed during this visit: no Reason for continuing: Not indwelling catheter Condom Cath placed during this visit: yes Reason for continuing: Not indwelling catheter Insertion date: 11/12/17 Straight Cath placed during this visit: no Reason for continuing: Not indwelling catheter Objective Laboratory Results - last 24 hr 11/12/17 11/12/17 11/12/17 12:44 18:19 23:42 POC Glucose 96 129 H 121 H 11/13/17 06:10 POC Glucose 132 H Microbiology 11/11/17 11:55 Aerobic Blood Culture - Preliminary Blood - Peripheral No growth in 1 day Anaerobic Blood Culture - Preliminary No growth in 1 day 11/11/17 11:50 Aerobic Blood Culture - Preliminary Blood - Peripheral No growth in 1 day Anaerobic Blood Culture - Preliminary No growth in 1 day 11/09/17 10:20 Aerobic Blood Culture - Preliminary Blood - Peripheral No growth in 3 days Anaerobic Blood Culture - Final QNS - See aerobic report. 11/08/17 10:49 Aerobic Blood Culture - Preliminary Blood - Peripheral No growth in 4 days Anaerobic Blood Culture - Preliminary No growth in 4 days 11/07/17 06:20 Aerobic Blood Culture - Final Blood - Peripheral Staphylococcus aureus Anaerobic Blood Culture - Final No growth in 5 days Review/Management - Review/Management Plan: imp mri 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 when off sedatives? -- 11/13/17 no change leg tremor vs sz yest ct stable eeg neg sz on keppra pk to dc sedatives today on keppa 1000 bid
[2017-11-13] MEDS: ceFAZolin 2 GM Premix Inj 2 GM/50 ML PIGGYBACK IV.SIG SCH (09:21)
[2017-11-13] MEDS: levETIRAcetam 1000mg/100mL Inj 100 ML IV.SIG SCH ×2 (09:21→22:09)
[2017-11-13] MEDS: Senna/Docusate Sodium 8.6/50 MG Tablet PO SCH (09:22)
--- NOTE | 2017-11-13 10:40 | P.PNID ---
Subjective Remarks: Patient is a 31-year-old male, who initially presented to [facility] emergency room October 30 complaining of 3 day history of headache. He gave a history of IV drug use. He was not febrile during that visit. WBC was normal. He underwent CT of the brain which was negative. Also underwent MRI of the thoracic and lumbar spine which were both negative for any infection. 2 blood cultures were done at that time and he was discharged. He came back to the hospital after his friends found him on the kitchen floor. He was reportedly unable to move his right side. And he was also noted to have some difficulty speaking. He remains afebrile. His white count is elevated. His CT of the head is now showing some findings in the right parietal area, as well as faint subarachnoid hemorrhage. CTA of the neck is negative. He has evidence of right-sided weakness, as well as expressive aphasia. The 2 blood cultures done on his ED visit is now reported as growing MSSA. Infectious disease consultation has been requested to evaluate the patient. Notes reviewed Still with fevers On the vent, L eye open, not following Drooling BP ok, not on pressors CT head no change in edema To have Brain MRI today No new (+) BC BC (+) 11/04-11/07 Sputum with MSSA 11/05 Last CXR much improved, still with significant infiltrate yeni on R side WBC normal Platelets improving LFT ok CTS evaluation noted - not a surgical candidate Echocardiogram: The left ventricular systolic function is normal with an estimated ejection fraction in the range of 60-65%. Trace mitral valve regurgitation. Large vegetation noted on the aortic valve (1.7cm x 1.0cm) Mild obstruction of the aortic valve due to vegetation with a mean gradient of 11 mmHg Severe eccentric aortic regurgitation There is trace tricuspid valve regurgitation. Antibiotics: Oxacillin Rifampin Lines: [facility] central line - 11/05 Past Medical History: Diabetes Hypertension IVDU Allergies/Adverse Reactions: Allergies No Known Allergies Allergy (Unverified 10/30/17 21:54) Objective Vital Signs 11/12/17 11:14 11/12/17 11:15 11/12/17 12:00 Temperature 99.9 F H Pulse Rate 100 H 102 H Respiratory Rate 22 17 Blood Pressure 144/66 H Pulse Oximetry 100 98 100 11/12/17 16:00 11/12/17 16:38 11/12/17 20:00 Temperature 98.4 F 101.1 F H Pulse Rate 90 103 H 90 Respiratory Rate 15 24 19 Blood Pressure 134/60 144/63 H Pulse Oximetry 100 100 100 11/12/17 20:28 11/12/17 22:01 11/12/17 23:43 Temperature Pulse Rate 97 H 96 H Respiratory Rate 22 20 17 Blood Pressure Pulse Oximetry 97 95 11/13/17 00:00 11/13/17 02:12 11/13/17 03:34 Temperature 100.9 F H Pulse Rate 102 H 97 H Respiratory Rate 20 15 15 Blood Pressure 151/67 H Pulse Oximetry 100 100 11/13/17 04:00 11/13/17 04:39 11/13/17 08:45 Temperature 100.9 F H Pulse Rate 94 H 94 H Respiratory Rate 16 16 14 Blood Pressure 136/63 Pulse Oximetry 100 97 100 Intake & Output 11/12/17 11/13/17 11/13/17 18:59 06:59 18:59 Intake Total 2336 / 2336 1289 / 1289 Output Total 4950 / 4950 1650 / 1650 Balance -2614 / -2614 -361 / -361 Weight 88.4 kg Intake: IV 1550 / 1550 600 / 600 Diprivan 1000 mg/100 ml Inj 1, 200 / 200 200 / 200 000 mg In 100 ml @ 5 MCG/KG/MIN 2.448 mls/hr IV.CONT TITRATE PRN Rx#:[id number] NS Inj 1,000 ML @ 70 mls/hr IV. 1000 / 1000 CONT .[id number] [facility] Rx#:[id number] Prostaphlin Inj 2 GM In NS Inj 200 / 200 100 ML @ 200 mls/hr IV.SIG Q4H [facility] Rx#:[id number] Ancef 2 GM Premix Inj 2 gm In 50 / 50 50 / 50 50 ml @ 100 mls/hr IV.SIG Q8H [facility] Rx#:[id number] fentaNYL 10 mcg/mL Premix Drip 250 / 250 2,500 mcg In 250 ml @ 50 MCG/HR 5 mls/hr IV.SIG TITRATE PRN Rx #:[id number] Keppra 1000 mg/100 mL Premix 100 / 100 100 / 100 100 ML @ 400 mls/hr IV.SIG Q12H [facility] Rx#:[id number] Tube Feeding 586 / 586 599 / 599 Tube Irrigant 200 / 200 Water Bolus Amount 90 / 90 Output: Urine Amount (Catheter) 4950 / 4950 1650 / 1650 Condom 4950 / 4950 1650 / 1650 Other: # Voids 1 Date of Last Bowel Movement 11/12/17 11/12/17 # Bowel Movements 1 0 11/11/17 11:55 Blood - Peripheral Aerobic Blood Culture - Preliminary No growth in 1 day 11/11/17 11:55 Blood - Peripheral Anaerobic Blood Culture - Preliminary No growth in 1 day 11/11/17 11:50 Blood - Peripheral Aerobic Blood Culture - Preliminary No growth in 1 day 11/11/17 11:50 Blood - Peripheral Anaerobic Blood Culture - Preliminary No growth in 1 day 11/09/17 10:20 Blood - Peripheral Aerobic Blood Culture - Preliminary No growth in 3 days 11/09/17 10:20 Blood - Peripheral Anaerobic Blood Culture - Final QNS - See aerobic report. 11/08/17 10:49 Blood - Peripheral Aerobic Blood Culture - Preliminary No growth in 4 days 11/08/17 10:49 Blood - Peripheral Anaerobic Blood Culture - Preliminary No growth in 4 days 11/07/17 06:20 Blood - Peripheral Aerobic Blood Culture - Final Staphylococcus aureus 11/07/17 06:20 Blood - Peripheral Anaerobic Blood Culture - Final No growth in 5 days 11/06/17 05:39 Blood - Peripheral Aerobic Blood Culture - Final Staphylococcus aureus 11/06/17 05:39 Blood - Peripheral Anaerobic Blood Culture - Final No growth in 5 days 11/05/17 04:22 Blood - Peripheral Aerobic Blood Culture - Final Staphylococcus aureus 11/05/17 04:22 Blood - Peripheral Anaerobic Blood Culture - Final No growth in 5 days Lab - Hematology Results 11/12/17 04:56 WBC 7.9 RBC 3.06 L Hgb 8.7 L Hct 26.4 L MCV 86.4 MCH 28.5 MCHC 32.9 RDW 13.5 Plt Count 179 MPV 9.1 Neut % (Auto) 73.6 H Lymph % (Auto) 18.2 Meagher % (Auto) 5.9 Eos % (Auto) 1.5 Baso % (Auto) 0.8 Neut # (Auto) 5.8 Lymph # (Auto) 1.4 Meagher # (Auto) 0.5 Eos # (Auto) 0.1 Baso # (Auto) 0.1 WBC Differential . Differential Comment Auto diff final Lab - Chemistry Results 11/12/17 11/12/17 11/12/17 00:51 04:50 04:56 Sodium 142 Potassium 3.7 Chloride 112 H Carbon Dioxide 24.5 Anion Gap 6 BUN 11 Creatinine 0.92 Estimated GFR Greater than 89 POC Glucose 102 Random Glucose 120 H Calcium 7.7 L Phosphorus 3.6 Magnesium 2.2 Total Bilirubin 0.6 AST 26 ALT 13 Alkaline Phosphatase 56 Ammonia 32 Total Protein 7.7 Albumin 1.5 L 11/12/17 11/12/17 11/12/17 07:00 12:44 18:19 Sodium Potassium Chloride Carbon Dioxide Anion Gap BUN Creatinine Estimated GFR POC Glucose 116 H 96 129 H Random Glucose Calcium Phosphorus Magnesium Total Bilirubin AST ALT Alkaline Phosphatase Ammonia Total Protein Albumin 11/12/17 11/13/17 23:42 06:10 Sodium Potassium Chloride Carbon Dioxide Anion Gap BUN Creatinine Estimated GFR POC Glucose 121 H 132 H Random Glucose Calcium Phosphorus Magnesium Total Bilirubin AST ALT Alkaline Phosphatase Ammonia Total Protein Albumin Imaging: ITS Impressions Head CTA 11/04/17 05:39 CONCLUSION: 1. Patient is left vertebral dominant. 2. Otherwise, intracranial vessels are all patent without embolic or aneurysmal disease. Neck CTA 11/04/17 05:39 CONCLUSION: 1. Patient is left vertebral dominant. 2. Otherwise, arch and cervical vessels are patent throughout. Head MRI 11/04/17 06:36 CONCLUSION: 1. Acute infarcts as described above suggesting embolic occlusion as described above. Largest areas in the left posterior sylvian region. Chest X-Ray 11/12/17 06:00 CONCLUSION: 1. Interval improvement in pulmonary edema. 2. Moderate residual airspace disease remains as well as an apparent small left effusion. Head CT 11/12/17 09:37 CONCLUSION: 1. Moderate-sized area of edema involving the left posterior parietal cortex unchanged from previous of 11/06/2017. Findings are most consistent with cortical infarct. There is no evidence of hemorrhage within this. . Physical Exam: GENERAL: Sedated on the vent, L eye open SKIN: Warm and dry. No generalized rash. Embolic lesions better HEAD: Atraumatic. Normocephalic. No temporal wasting, or tenderness. EYES: [place] conjunctiva. Has petechia on L conjunctiva. Pupils equal, round and reactive to light. No scleral icterus. No injection or drainage. EARS, NOSE AND THROAT: Nose without bleeding or purulent nasal discharge. No sinus tenderness. Mucous membranes pink and moist. NECK: Trachea midline. Supple and not tender, no meningeal signs CARDIOVASCULAR: Regular rate and rhythm. RESPIRATORY: Bilateral coarse breath sounds ABDOMEN: Soft, nondistended. Bowel sounds present and normoactive. No reaction to palpation. EXTREMITIES: No clubbing, cyanosis, or edema. No joint effusion. NEUROLOGICAL: Sedated on the vent, R sided facial weakness PSYCHIATRIC: Unable to assess LINE: No evidence of infection Assessment and Plan - Plan Impression MSSA sepsis L sided endocarditis AV, due to IVDU - has large vegetation AV, causing mild obstruction CVA with R sided weakness, aphasia, due to embolic event from his IE Persistent fevers - nothing new on C/S - ?drug fever IVDU Respiratory failure, has bilateral infiltrates MSSA PNA, S/P Rx Recommendation Follow blood C/S to document clearing Continue Ancef Continue Rifampin for synergy Repeat sputum G/S C/S Follow temps Follow C/S Monitor progress Per CTS not surgical candidate D/W RN I will be off 11/14-11/17, other ID MD covering in my absence
--- NOTE | 2017-11-13 10:57 | P.PNCC ---
Subjective Subjective Remarks/Hospital Course: This is a 31yM who recently presented to the emergency department on 10/30 with subjective fevers and back pain. At that time he was given an MRI of the spine due to his IV drug use and concern for endocarditis. His MRI spine was negative and he was discharged home. Blood cultures that were drawn at that time returned 4 out of 4 bottles with MSSA. Patient was attempted to be contacted at his home to return for medical attention, but he was unable to be contacted. He represents today with acute altered mental status and was found on the floor of his apartment. He is aphasic and has significant right-sided hemiparesis/weakness. CT brain demonstrates a small amount of subarachnoid blood and small areas of decreased density suggestive of acute infarcts. MRI confirms multiple small areas of infarct. I evaluated the patient and he is quite altered and aphasic and no additional information is available from him. I performed bedside critical care ultrasonography which demonstrates a large mobile mass on the aortic valve with associated severe aortic regurgitation. No pericardial effusion. In addition all this, the patient has a new finding of an INR of 9.8 as well as an elevated salicylate level of 28. Given there is recent community history seated to suggest that some of the IV drugs in the area have been contaminated with rapid poison and or Coumadin/warfarin, I have a high degree of suspicion that the patient may have injected contaminated IV drugs. I have contacted poison control who is following along. We have ordered 4 units of FFP emergently to be released to the patient. We have called pharmacy and due to a national shortage of the drug, we do not have any [facility] Centra available. I have also ordered FEIBA as an alternative to K Centra. 11/05: INR has been corrected to normal. Repeat head CT shows no evidence of additional bleed. Noteworthy on head CT is new edema involving most of the temporal lobe on the left side, arising in the area of ischemic infarct. Other smaller defects are noted bilaterally. Blood cultures are growing MSSA, consistent with his IV drug use and aortic valve vegetation. Bilateral lung infiltrates noted on today's chest x-ray consistent with prehospital aspiration. 11/06: Tolerating spontaneous breathing trial with acceptable pressure support but oxygenation markedly impaired due to prehospital aspiration pneumonitis. No change in neurologic status. Cultures continued to be positive for staph aureus. 11/07: Continues to tolerate spontaneous breathing trials with acceptable pressure support. Minimal change in neurologic status and I cannot get him to follow any commands. Pre-albumin surprisingly low at 11, continue aggressive nutritional support. 11/08: Extubated himself yesterday morning and tolerated spontaneous breathing with supplemental oxygen during the day. In the early evening he became unable to protect his airway and his respiratory effort became much weaker. He required endotracheal intubation and mechanical ventilation thereafter. While extubated he did respond to simple commands including moving his left hand. He did repeat simple 2 and 3 word statements. The chest x-ray following reintubation is consistent with heart failure although the hemodynamics belie that, more consistent with an inflammatory process. 11/09: Tolerating ongoing diuresis. Gas exchange improving. Difficult to assess while sedated we will aim for re-extubation. 11/10: Ongoing septic pattern. First extubation was poorly tolerated by the patient and he remains to obtunded to extubate at this time. Converted from APRV back to conventional ventilation and now reducing PEEP. SUBJECTIVE: 11/11: Seen and examined. Remains febrile T-max of 101. Hemodynamically stable. Positive BM today. Tolerating tube feeding. 11/12: Remains intubated sedated with propofol and fentanyl. T-max 101.4. FiO2 35% but PEEP remains high at 12. Start weaning PEEP as tolerated. Attempt CPAP trials 11/13: Currently on propofol and fentanyl but more awake moving left upper and lower extremities spontaneously following some commands. Tolerating CPAP at high settings. Getting MRI per Dr. Hatfield, CT of the head yesterday was unchanged. T-max 101.1 Objective Vital Signs / I&O: Vital Signs 11/12/17 11:14 11/12/17 11:15 11/12/17 12:00 Temperature 99.9 F H Pulse Rate 100 H 102 H Respiratory Rate 22 17 Blood Pressure 144/66 H Pulse Oximetry 100 98 100 11/12/17 16:00 11/12/17 16:38 11/12/17 20:00 Temperature 98.4 F 101.1 F H Pulse Rate 90 103 H 90 Respiratory Rate 15 24 19 Blood Pressure 134/60 144/63 H Pulse Oximetry 100 100 100 11/12/17 20:28 11/12/17 22:01 11/12/17 23:43 Temperature Pulse Rate 97 H 96 H Respiratory Rate 22 20 17 Blood Pressure Pulse Oximetry 97 95 11/13/17 00:00 11/13/17 02:12 11/13/17 03:34 Temperature 100.9 F H Pulse Rate 102 H 97 H Respiratory Rate 20 15 15 Blood Pressure 151/67 H Pulse Oximetry 100 100 11/13/17 04:00 11/13/17 04:39 11/13/17 08:45 Temperature 100.9 F H Pulse Rate 94 H 94 H Respiratory Rate 16 16 14 Blood Pressure 136/63 Pulse Oximetry 100 97 100 Intake & Output 11/12/17 11/13/17 11/13/17 18:59 06:59 18:59 Intake Total 2336 / 2336 1289 / 1289 Output Total 4950 / 4950 1650 / 1650 Balance -2614 / -2614 -361 / -361 Weight 88.4 kg Intake: IV 1550 / 1550 600 / 600 Diprivan 1000 mg/100 ml Inj 1, 200 / 200 200 / 200 000 mg In 100 ml @ 5 MCG/KG/MIN 2.448 mls/hr IV.CONT TITRATE PRN Rx#:[id number] NS Inj 1,000 ML @ 70 mls/hr IV. 1000 / 1000 CONT .[id number] [facility] Rx#:[id number] Prostaphlin Inj 2 GM In NS Inj 200 / 200 100 ML @ 200 mls/hr IV.SIG Q4H [facility] Rx#:[id number] Ancef 2 GM Premix Inj 2 gm In 50 / 50 50 / 50 50 ml @ 100 mls/hr IV.SIG Q8H [facility] Rx#:[id number] fentaNYL 10 mcg/mL Premix Drip 250 / 250 2,500 mcg In 250 ml @ 50 MCG/HR 5 mls/hr IV.SIG TITRATE PRN Rx #:[id number] Keppra 1000 mg/100 mL Premix 100 / 100 100 / 100 100 ML @ 400 mls/hr IV.SIG Q12H [facility] Rx#:[id number] Tube Feeding 586 / 586 599 / 599 Tube Irrigant 200 / 200 Water Bolus Amount 90 / 90 Output: Urine Amount (Catheter) 4950 / 4950 1650 / 1650 Condom 4950 / 4950 1650 / 1650 Other: # Voids 1 Date of Last Bowel Movement 11/12/17 11/12/17 # Bowel Movements 1 0 Result Diagrams: 11/12/17 04:56 11/12/17 04:56 Objective Remarks: GENERAL: 31-year-old male currently orotracheally intubated HEENT: Normocephalic. Atraumatic. Pupils 4 mm, equal, round, reactive, conjugate. NECK: Trachea is midline. Orotracheal route intubated. CHEST: Equal chest rise. Few crackles throughout. No wheezing CARDIOVASCULAR: S1, S2. No S4. 2/6 murmur right upper sternal border ABDOMEN: Soft, nontender, nondistended. No guarding. Bowel sounds present. MUSCULOSKELETAL: No peripheral edema. Multiple linear scars over the bilateral upper and lower extremities consistent with needle fan. [place] lesions+ NEUROLOGICAL: RASS -1. Musculoskeletal strength on the right is 1/5 at best in both the upper and lower extremities. Musculoskeletal strength on the left is 4 out of 5. Appears to follow commands on the left upper and lower extremity even on sedation Assessment and Plan - Assessment and Plan Plan: Neurologic/Psych: Acute 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 Aphasia Subarachnoid hemorrhage IV drug abuse THC use Currently on propofol and fentanyl for sedation and vent synchrony Daily sedation vacation. Use Precedex if needed to facilitate weaning trials - MRI brain revealed left posterior MCA CVA also involving the right occipital region and left caudate nucleus likely embolic -CT brain yesterday after seizures did not show any acute changes. MRI brain ordered by Dr. Hatfield - neurosurgery/neurology consultation completed. Dr. Barton no intervention. Dr. Hatfield following - EEG: no evidence of ictal activity, repeated 11/13 -Continue [facility] Urine drug screen positive for fentanyl and salicylates and THC Respiratory: Hypoxemic respiratory failure Prehospital aspiration pneumonitis/MSSA -Required intubation for inability to control airway PRVC 14/600/1.2/, PEEP to 8. Daily CPAP trials Ventilator bundle Albuterol/ipratropium aerosols every 4 hours with albuterol aerosols every 2 hours as needed for dyspnea Chest x-ray stable Cardiovascular: Mixed septic/cardiogenic shock Severe aortic regurgitation Large aortic valve vegetation 1x1.7cm Mild aortic stenosis from vegetation s/p Lasix 40 mg IV 1 for some fluid overload on chest x-ray 2D echocardiogram 11/04 revealed EF 60-65%. Severe AR. Vegetation 1.01.7 cm Currently not requiring vasopressors and/or antihypertensives At present he is not a candidate for valve replacement surgery, per CTS Renal/: Acute kidney injury -Continue Fontaine catheter - monitor uop -- Strict I/Os FEN/GI: Lactic Acidosis -resolved Acute protein calorie malnutrition- severe, temporal muscle wasting Hypoalbuminemia Tube feedings with Glucerna 1.5 goal 60 cc hours per nutrition recommendations ICU electrolyte protocol. Lansoprazole for GI prophylaxis Docusate sodium/senna 1 tablet twice daily for bowel regimen. Heme/ID: Severe coagulopathy: suspected contaminated iv drugs with Rat Poison/Coumadin/ Warfarin Salicylate Poisoning: suspected contaminated IV drugs MSSA sepsis/pneumonia Infective endocarditis with large aortic valve vegetation Persistent fever -INR remains corrected after Feibavitamin K and FFP Continue cefazolin and rifampin 300 mg twice daily per infectious disease. Complete levofloxacin stop date 11/11 Blood cultures positive for MSSA 11/07, and . Subsequent 11/11/11/09 and no growth to date. Sputum positive for MSSA, repeat sputum culture today At present he is not a candidate for valve replacement surgery, seen by Dr. Barton before Endocrine: -- SSI aspart low protocol every 6 hours Prophylaxis: GI Prophylaxis Lansoprazole DVT Prophylaxis -- SCDs holding pharmacologic DVT prophylaxis due to risks of hemorrhagic conversion, until cleared by neurology and neurosurgery Lines: Right subclavian CVL fontaine Level 3 Code Status: Full
--- NOTE | 2017-11-13 12:02 | MR ---
EXAM DATE: 11/13/2017 11:44 AM EDT AGE/SEX: 31 years / Male INDICATIONS: . Seizure activity. CLINICAL DATA: This is the patient's subsequent encounter. Patient reports that signs and symptoms h ave been present for 1 week and indicates a pain score of Nonresponsive. MEDICAL/SURGICAL HISTORY: Diabetes mellitus type II. Hypertension. Hepatitis C. None. COMPARISON: [facility], CT HEAD W/O CONTRAST, 11/12/2017. [facility], CT HEAD W/O CONTRAST, 11/06/2017. [facility], CT HEAD W/O CONTRAST, 11/05/2017. [facility], MR HEAD W & W/O CONTRAST, 11/04/2017. . TECHNIQUE: Multiplanar, multisequence examination of the brain was performed without and with 9 ml Ga davist (gadobutrol) contrast as a single exam dose. FINDINGS: Diffusion weighted images demonstrate a large area restricted diffusion involving the left insular co rtex, frontal and parietal regions, as well as a focal area of restricted diffusion with surrounding edema in the right parietal/occipital region. There is mild mass effect on the left lateral ventricle from the evolving left cerebral infarct. There is increased T1 signal in a serpiginous fashion along the cortex of the left cerebral hemisphere the areas of infarction felt to represent laminar necrosi s and possibly methemoglobin. Scattered areas of restricted diffusion noted previously have resolved. Reidentified are scattered foci of blooming artifact throughout the brain. CONCLUSION: 1. Evolving bilateral areas of infarction. There is mild mass effect on the left lateral ventricle p articularly the posterior horn which is effaced. Electronically signed by: Casa Lechuga MD 11/13/2017 11:54 AM EDT
[2017-11-13] MEDS ORDERED: Gadobutrol PF 10 MMOL/10 ML Vial (for RAD) IV.SIG ONE (13:05)
[2017-11-13 16:08] LABS: ABG Base Excess 0.7 mmol/L (-2-2); ABG PCO2 33 mmHg (38-42); ABG PO2 108 mmHg (61-120)
[2017-11-13] MEDS ORDERED: Hyoscyamine Liq Drops 0.125 MG/ML 15 ML Bottle SL PRN (16:53)
[2017-11-13] MEDS: Hypromellose 0.3% Opth Gel 10 GM Bottle EACH EYE SCH ×2 (21:00→21:06)
[2017-11-13] MEDS: Sod Chloride 0.9% Inj 1,000 ML IV.CONT SCH (21:06)
[2017-11-13] MEDS: Chlorhexidine 0.12% Oral Kit 15 ML UDC OROPHARYNG SCH (21:06)
[2017-11-14] MEDS: Sod Chloride 0.9% Inj 1,000 ML IV.CONT SCH ×2 (01:52→08:33)
[2017-11-14] MEDS: Chlorhexidine 0.12% Oral Kit 15 ML UDC OROPHARYNG SCH ×3 (01:52→21:35)
[2017-11-14] MEDS: Senna/Docusate Sodium 8.6/50 MG Tablet PO SCH ×3 (01:54→21:02)
[2017-11-14] MEDS: Oral Hygiene Kit OROPHARYNG SCH ×4 (01:56→16:16)
--- NOTE | 2017-11-14 04:50 | XR ---
EXAM DATE: 11/14/2017 4:07 AM EDT AGE/SEX: 31 years / Male INDICATIONS: Respiratory failure patient is status post extubation. CLINICAL DATA: This is the patient's subsequent encounter. Patient reports that signs and symptoms h ave been present for 2 weeks and indicates a pain score of Nonresponsive. MEDICAL/SURGICAL HISTORY: . Hypertension. Diabetes mellitus type II None. COMPARISON: [facility], CHEST 1V SINGLE AP, 11/12/2017. . FINDINGS: A single AP portable erect view of the chest was obtained and demonstrates interval extubation and re moval of the nasogastric tube. The right subclavian central venous line remains in place. Hazy opacit y is noted in both lungs greatest in the perihilar regions. Is appears mildly increased. There is no distinct effusion. The heart size remains mildly prominent. The bony thorax is intact. CONCLUSION: 1. Interval extubation and removal of the nasogastric tube. 2. Mild interval increase in hazy opacity in both lungs most characteristic of pulmonary edema. Electronically signed by: Bartolo Yen MD 11/14/2017 4:48 AM EDT
[2017-11-14 05:52] LABS: Hematocrit 25.7 % (39.0-51.0); Hemoglobin 8.6 gm/dL (13.0-17.0); Mean Corpuscular HGB Conc 33.7 % (32.0-36.0); Mean Corpuscular Hemoglobin 28.8 pg (27.0-34.0); Mean Corpuscular Volume 85.5 fL (80.0-100.0); Platelet Count 226 th/mm3 (150-450); Red Cell Distribution Width 13.3 % (11.6-17.2); White Blood Count 8.6 th/mm3 (4.0-11.0)
[2017-11-14 06:04] LABS: Albumin 1.7 g/dL (3.4-5.0); Anion Gap 10 meq/L (5-15); Aspartate Aminotransferase 28 U/L (15-37); Blood Urea Nitrogen 11 mg/dL (7-18); Calcium 7.8 mg/dL (8.5-10.1); Carbon Dioxide 22.3 meq/L (21.0-32.0); Chloride 111 meq/L (98-107); Glomerular Filtration Rate Greater Than 89 mL/min (>89); Glucose,Random 91 mg/dL (74-106); Magnesium 2.1 mg/dL (1.5-2.5); Potassium 3.5 meq/L (3.5-5.1); Sodium 143 meq/L (136-145)
[2017-11-14 06:05] LABS: Alanine Aminotransferase 11 U/L (12-78)
[2017-11-14 06:07] LABS: Alkaline Phosphatase 51 U/L (45-117); Total Protein 8.4 g/dL (6.4-8.2)
[2017-11-14] MEDS: Insulin NovoLOG Aspart Correctional Sugar Inj SQ SCH ×4 (08:32→18:04)
--- NOTE | 2017-11-14 08:47 | P.PNCC ---
Subjective Subjective Remarks/Hospital Course: This is a 31yM who recently presented to the emergency department on 10/30 with subjective fevers and back pain. At that time he was given an MRI of the spine due to his IV drug use and concern for endocarditis. His MRI spine was negative and he was discharged home. Blood cultures that were drawn at that time returned 4 out of 4 bottles with MSSA. Patient was attempted to be contacted at his home to return for medical attention, but he was unable to be contacted. He represents today with acute altered mental status and was found on the floor of his apartment. He is aphasic and has significant right-sided hemiparesis/weakness. CT brain demonstrates a small amount of subarachnoid blood and small areas of decreased density suggestive of acute infarcts. MRI confirms multiple small areas of infarct. I evaluated the patient and he is quite altered and aphasic and no additional information is available from him. I performed bedside critical care ultrasonography which demonstrates a large mobile mass on the aortic valve with associated severe aortic regurgitation. No pericardial effusion. In addition all this, the patient has a new finding of an INR of 9.8 as well as an elevated salicylate level of 28. Given there is recent community history seated to suggest that some of the IV drugs in the area have been contaminated with rapid poison and or Coumadin/warfarin, I have a high degree of suspicion that the patient may have injected contaminated IV drugs. I have contacted poison control who is following along. We have ordered 4 units of FFP emergently to be released to the patient. We have called pharmacy and due to a national shortage of the drug, we do not have any [facility]ra available. I have also ordered FEIBA as an alternative to K Centra. 11/05: INR has been corrected to normal. Repeat head CT shows no evidence of additional bleed. Noteworthy on head CT is new edema involving most of the temporal lobe on the left side, arising in the area of ischemic infarct. Other smaller defects are noted bilaterally. Blood cultures are growing MSSA, consistent with his IV drug use and aortic valve vegetation. Bilateral lung infiltrates noted on today's chest x-ray consistent with prehospital aspiration. 11/06: Tolerating spontaneous breathing trial with acceptable pressure support but oxygenation markedly impaired due to prehospital aspiration pneumonitis. No change in neurologic status. Cultures continued to be positive for staph aureus. 11/07: Continues to tolerate spontaneous breathing trials with acceptable pressure support. Minimal change in neurologic status and I cannot get him to follow any commands. Pre-albumin surprisingly low at 11, continue aggressive nutritional support. 11/08: Extubated himself yesterday morning and tolerated spontaneous breathing with supplemental oxygen during the day. In the early evening he became unable to protect his airway and his respiratory effort became much weaker. He required endotracheal intubation and mechanical ventilation thereafter. While extubated he did respond to simple commands including moving his left hand. He did repeat simple 2 and 3 word statements. The chest x-ray following reintubation is consistent with heart failure although the hemodynamics belie that, more consistent with an inflammatory process. 11/09: Tolerating ongoing diuresis. Gas exchange improving. Difficult to assess while sedated we will aim for re-extubation. 11/10: Ongoing septic pattern. First extubation was poorly tolerated by the patient and he remains to obtunded to extubate at this time. Converted from APRV back to conventional ventilation and now reducing PEEP. 11/11: Seen and examined. Remains febrile T-max of 101. Hemodynamically stable. Positive BM today. Tolerating tube feeding. 11/12: Remains intubated sedated with propofol and fentanyl. T-max 101.4. FiO2 35% but PEEP remains high at 12. Start weaning PEEP as tolerated. Attempt CPAP trials 11/13: Currently on propofol and fentanyl but more awake moving left upper and lower extremities spontaneously following some commands. Tolerating CPAP at high settings. Getting MRI per Dr. Hatfield, CT of the head yesterday was unchanged. T-max 101.1 SUBJECTIVE: 11/14: Extubated 11/13 without complication. T-max 100.8. Continues with expressive aphasia. Right leg is out of bed. Objective Vital Signs / I&O: Vital Signs 11/13/17 12:00 11/13/17 12:37 11/13/17 15:55 Temperature 99.6 F Pulse Rate 94 H 89 97 H Respiratory Rate 21 19 19 Blood Pressure 117/56 L Pulse Oximetry 100 100 100 11/13/17 16:00 11/13/17 16:54 11/13/17 19:00 Temperature 99.2 F Pulse Rate 96 H 100 H Respiratory Rate 24 20 Blood Pressure 132/63 Pulse Oximetry 97 11/13/17 20:00 11/13/17 22:00 11/14/17 00:00 Temperature 100.8 F H 100.4 F H Pulse Rate 104 H 110 H 109 H Respiratory Rate 24 25 H Blood Pressure 143/63 H 136/63 Pulse Oximetry 95 97 11/14/17 00:35 11/14/17 02:00 11/14/17 04:00 Temperature 97.5 F L Pulse Rate 106 H 108 H 101 H Respiratory Rate 20 17 Blood Pressure 179/79 H Pulse Oximetry 11/14/17 04:05 11/14/17 08:22 Temperature Pulse Rate 103 H 102 H Respiratory Rate 14 Blood Pressure Pulse Oximetry 95 Intake & Output 11/13/17 11/14/17 11/14/17 18:59 06:59 18:59 Intake Total 3500 / 3500 1100 / 1100 1120 / 1120 Output Total 1949 Balance 3500 / 3500 -850 / -850 1120 / 1120 Weight 82.9 kg Intake: IV 1220 / 1220 1100 / 1100 1120 / 1120 NS Inj 1,000 ML @ 70 mls/hr IV. 1000 / 1000 1000 / 1000 1000 / 1000 CONT .[id number] JONATHON Rx#:[id number] Ancef Inj 2,000 MG In NS Inj 120 / 120 120 / 120 100 ML @ 240 mls/hr IV.SIG Q8H JONATHON Rx#:[id number] Keppra 1000 mg/100 mL Premix 100 / 100 100 / 100 100 ML @ 400 mls/hr IV.SIG Q12H JONATHON Rx#:[id number] Tube Feeding 2250 / 2250 Water Bolus Amount 30 / 30 Output: Urine Amount (Catheter) 1949 Condom 1949 Other: Date of Last Bowel Movement 11/13/17 # Bowel Movements 3 Result Diagrams: 11/14/17 05:35 11/14/17 05:35 Other Results: Microbiology 11/13/17 12:54 Sputum - Endotracheal Gram Stain - Final 11/11/17 11:55 Blood - Peripheral Aerobic Blood Culture - Preliminary No growth in 2 days 11/11/17 11:55 Blood - Peripheral Anaerobic Blood Culture - Preliminary No growth in 2 days 11/11/17 11:50 Blood - Peripheral Aerobic Blood Culture - Preliminary No growth in 2 days 11/11/17 11:50 Blood - Peripheral Anaerobic Blood Culture - Preliminary No growth in 2 days 11/09/17 10:20 Blood - Peripheral Aerobic Blood Culture - Preliminary No growth in 4 days 11/09/17 10:20 Blood - Peripheral Anaerobic Blood Culture - Final QNS - See aerobic report. 11/08/17 10:49 Blood - Peripheral Aerobic Blood Culture - Final No growth in 5 days 11/08/17 10:49 Blood - Peripheral Anaerobic Blood Culture - Final No growth in 5 days 11/07/17 06:20 Blood - Peripheral Aerobic Blood Culture - Final Staphylococcus aureus 11/07/17 06:20 Blood - Peripheral Anaerobic Blood Culture - Final No growth in 5 days 11/06/17 05:39 Blood - Peripheral Aerobic Blood Culture - Final Staphylococcus aureus 11/06/17 05:39 Blood - Peripheral Anaerobic Blood Culture - Final No growth in 5 days 11/05/17 04:22 Blood - Peripheral Aerobic Blood Culture - Final Staphylococcus aureus 11/05/17 04:22 Blood - Peripheral Anaerobic Blood Culture - Final No growth in 5 days 11/06/17 08:55 Sputum - Endotracheal Gram Stain - Final 11/06/17 08:55 Sputum - Endotracheal Sputum Culture - Final Staphylococcus aureus 11/05/17 11:40 Sputum - Endotracheal Gram Stain - Final 11/05/17 11:40 Sputum - Endotracheal Sputum Culture - Final Staphylococcus aureus 11/05/17 01:34 Catheterized Urine Urine Culture - Final No growth in 48 hours 11/04/17 06:45 Blood - Peripheral Aerobic Blood Culture - Final Staphylococcus aureus 11/04/17 06:45 Blood - Peripheral Anaerobic Blood Culture - Final Staphylococcus aureus 11/04/17 06:40 Blood - Peripheral Aerobic Blood Culture - Final Staphylococcus aureus 11/04/17 06:40 Blood - Peripheral Anaerobic Blood Culture - Final Staphylococcus aureus Imaging: ITS Impressions Head CTA 11/04/17 05:39 CONCLUSION: 1. Patient is left vertebral dominant. 2. Otherwise, intracranial vessels are all patent without embolic or aneurysmal disease. Neck CTA 11/04/17 05:39 CONCLUSION: 1. Patient is left vertebral dominant. 2. Otherwise, arch and cervical vessels are patent throughout. Head CT 11/12/17 09:37 CONCLUSION: 1. Moderate-sized area of edema involving the left posterior parietal cortex unchanged from previous of 11/06/2017. Findings are most consistent with cortical infarct. There is no evidence of hemorrhage within this. . Head MRI 11/13/17 00:00 CONCLUSION: 1. Evolving bilateral areas of infarction. There is mild mass effect on the left lateral ventricle particularly the posterior horn which is effaced. Chest X-Ray 11/14/17 06:00 CONCLUSION: 1. Interval extubation and removal of the nasogastric tube. 2. Mild interval increase in hazy opacity in both lungs most characteristic of pulmonary edema. Objective Remarks: GENERAL: 31-year-old male currently resting in bed on nasal cannula in no acute distress HEENT: Normocephalic. Atraumatic. Pupils 4 mm, equal, round, reactive, conjugate. NECK: Trachea is midline. No JVD or thyromegaly CHEST: Equal chest rise. Few scattered anterior crackles throughout. No wheezing CARDIOVASCULAR: S1, S2. No S4. 2/6 murmur right upper sternal border ABDOMEN: Soft, nontender, nondistended. No guarding. Bowel sounds present. MUSCULOSKELETAL: No peripheral edema. Multiple linear scars over the bilateral upper and lower extremities consistent with needle fan. [place]ay lesions+ NEUROLOGICAL: RASS -1. Musculoskeletal strength on the right is 1/5 in both the upper and lower extremities. Musculoskeletal strength on the left is 4 out of 5. 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 Restriction effusion right parietal /occipital region. Evolving infarcts with mild mass-effect in left lateral ventricle/effacement of the posterior horn. - MRI brain revealed left posterior MCA CVA also involving the right occipital region and left caudate nucleus likely embolic -CT brain yesterday after seizures did not show any acute changes. MRI brain ordered by Dr. Hatfield - neurosurgery/neurology consultation completed. Dr. Barton no intervention. Dr. Hatfield following - EEG: Abnormal EEG at times with moderate slowing more left compared to the right, likely due to structural lesion such as stroke, but no apparent evidence of any epileptiform features. Some of the slowing may be dueto sedation. Clinical correlation -Continue levetiracetam 1000 mg IV twice daily Acetaminophen 650 mg every 6 hours as needed fever/pain 1 through 10 Urine drug screen positive for fentanyl and salicylates and THC Respiratory: Hypoxemic respiratory failure Prehospital aspiration pneumonitis/MSSA -Required intubation for inability to control airway. Extubated 11/13 Nasal cannula to maintain saturations greater than equal to 92% I incentive spirometry while awake Albuterol/ipratropium aerosols every 4 hours with albuterol aerosols every 2 hours as needed for dyspnea Chest x-ray 11/14 revealed pulmonary edema. Will give furosemide 20 mg IV 1 now. Cardiovascular: Mixed septic/cardiogenic shock Severe aortic regurgitation Large aortic valve vegetation 1x1.7cm Mild aortic stenosis from vegetation 2D echocardiogram 11/04 revealed EF 60-65%. Severe AR. Vegetation 1.01.7 cm Currently not requiring vasopressors and/or antihypertensives At present he is not a candidate for valve replacement surgery, per CTSDr. Oralia 11/06 note Currently on normal saline at 70 cc an hour Renal/: Acute kidney injury -Continue Fontaine catheter - monitor uop -- Strict I/Os Repeat BMP in a.m. 11/15 FEN/GI: Lactic Acidosis -resolved Acute protein calorie malnutrition- severe, temporal muscle wasting Hypoalbuminemia Currently extubated. Speech therapy evaluate and treat for swallowing Pantoprazole for GI prophylaxis Docusate sodium/senna 1 tablet twice daily for bowel regimen. 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 Complete levofloxacin stop date 11/11 Blood cultures positive for MSSA 11/07, and . Subsequent 11/13, 11/11/11/09 and 11/08 no growth to date. Sputum positive for MSSA, 11/05 At present he is not a candidate for valve replacement surgery, seen by Dr. Barton 11/06 Endocrine: Low TSH 0.13 -- SSI aspart low protocol every 6 hours Free T4 was normal at 5.3. Recheck TSH in 2-4 weeks Prophylaxis: GI Prophylaxis Pantoprazole DVT Prophylaxis -- SCDs holding pharmacologic DVT prophylaxis due to risks of hemorrhagic conversion, until cleared by neurology and neurosurgery Lines: Right subclavian CVL fontaine Level 2 follow-up
[2017-11-14] MEDS ORDERED: Potassium Chlor 40 mEq Premix 40 MEQ/100 ML PIGGYBACK IV.SIG ONE (08:48)
[2017-11-14] MEDS: levETIRAcetam 1000mg/100mL Inj 100 ML IV.SIG SCH ×2 (09:13→21:42)
[2017-11-14] MEDS: Pantoprazole Inj 40 MG Vial IV.PUSH SCH (09:54)
[2017-11-14] MEDS: Potassium Chlor 10 mEq Premix 10 MEQ/100 ML PIGGYBACK IV.SIG SCH ×4 (10:25→13:25)
[2017-11-14] MEDS: Potassium Chlor 20 mEq Premix 20 MEQ/100 ML PIGGYBACK IV.SIG SCH ×2 (10:25→10:26)
--- NOTE | 2017-11-14 12:48 | P.PNID ---
Subjective Remarks: ID coverage: Patient is a 31-year-old male, who initially presented to [place] emergency room October 30 complaining of 3 day history of headache. He gave a history of IV drug use. He was not febrile during that visit. WBC was normal. He underwent CT of the brain which was negative. Also underwent MRI of the thoracic and lumbar spine which were both negative for any infection. 2 blood cultures were done at that time and he was discharged. He came back to the hospital after his friends found him on the kitchen floor. He was reportedly unable to move his right side. And he was also noted to have some difficulty speaking. He remains afebrile. His white count is elevated. His CT of the head is now showing some findings in the right parietal area, as well as faint subarachnoid hemorrhage. CTA of the neck is negative. He has evidence of right-sided weakness, as well as expressive aphasia. The 2 blood cultures done on his ED visit is now reported as growing MSSA. Infectious disease consultation has been requested to evaluate the patient. Notes reviewed Low grade fever. On room air. Following commands. Not moving the right side. Not verbally interacting. But makes noises when asked questions CT head no change in edema Blood culture from 11/09 and 11/11 has no growth. BC (+) 11/04-11/07 Sputum with MSSA 11/05 WBC normal CTS evaluation noted - not a surgical candidate Echocardiogram: The left ventricular systolic function is normal with an estimated ejection fraction in the range of 60-65%. Trace mitral valve regurgitation. Large vegetation noted on the aortic valve (1.7cm x 1.0cm) Mild obstruction of the aortic valve due to vegetation with a mean gradient of 11 mmHg Severe eccentric aortic regurgitation There is trace tricuspid valve regurgitation. Antibiotics: Oxacillin Rifampin Lines: [facility] central line - 11/05 Past Medical History: Diabetes Hypertension IVDU Allergies/Adverse Reactions: Allergies No Known Allergies Allergy (Unverified 10/30/17 21:54) Objective Vital Signs 11/13/17 15:55 11/13/17 16:00 11/13/17 16:54 Temperature 99.2 F Pulse Rate 97 H 96 H Respiratory Rate 19 24 Blood Pressure 132/63 Pulse Oximetry 100 97 11/13/17 19:00 11/13/17 20:00 11/13/17 22:00 Temperature 100.8 F H Pulse Rate 100 H 104 H 110 H Respiratory Rate 20 24 Blood Pressure 143/63 H Pulse Oximetry 95 11/14/17 00:00 11/14/17 00:35 11/14/17 02:00 Temperature 100.4 F H Pulse Rate 109 H 106 H 108 H Respiratory Rate 25 H 20 Blood Pressure 136/63 Pulse Oximetry 97 11/14/17 04:00 11/14/17 04:05 11/14/17 08:00 Temperature 97.5 F L 98.6 F Pulse Rate 101 H 103 H 100 H Respiratory Rate 17 26 H Blood Pressure 179/79 H 143/64 H Pulse Oximetry 11/14/17 08:22 11/14/17 11:15 11/14/17 12:00 Temperature 98.6 F Pulse Rate 102 H 105 H 106 H Respiratory Rate 14 16 27 H Blood Pressure 130/60 Pulse Oximetry 95 96 Intake & Output 11/13/17 11/14/17 11/14/17 18:59 06:59 18:59 Intake Total 3500 / 3500 1100 / 1100 1590 / 1590 Output Total 1949 Balance 3500 / 3500 -850 / -850 1590 / 1590 Weight 82.9 kg Intake: IV 1220 / 1220 1100 / 1100 1590 / 1590 NS Inj 1,000 ML @ 70 mls/hr IV. 1000 / 1000 1000 / 1000 1000 / 1000 CONT .[id number] JONATHON Rx#:[id number] KCl 10 mEq Premix Inj 10 meq In 200 / 200 100 ml @ 100 mls/hr IV.SIG Q1H JONATHON Rx#:[id number] Ancef Inj 2,000 MG In NS Inj 120 / 120 240 / 240 100 ML @ 240 mls/hr IV.SIG Q8H JONATHON Rx#:[id number] Keppra 1000 mg/100 mL Premix 100 / 100 100 / 100 100 / 100 100 ML @ 400 mls/hr IV.SIG Q12H JONATHON Rx#:[id number] Tube Feeding 2250 / 2250 Water Bolus Amount 30 / 30 Output: Urine Amount (Catheter) 1949 Condom 1949 Other: Date of Last Bowel Movement 11/13/17 # Bowel Movements 3 11/11/17 11:55 Blood - Peripheral Aerobic Blood Culture - Preliminary No growth in 3 days 11/11/17 11:55 Blood - Peripheral Anaerobic Blood Culture - Preliminary No growth in 3 days 11/11/17 11:50 Blood - Peripheral Aerobic Blood Culture - Preliminary No growth in 3 days 11/11/17 11:50 Blood - Peripheral Anaerobic Blood Culture - Preliminary No growth in 3 days 11/09/17 10:20 Blood - Peripheral Aerobic Blood Culture - Final No growth in 5 days 11/09/17 10:20 Blood - Peripheral Anaerobic Blood Culture - Final QNS - See aerobic report. 11/13/17 12:54 Sputum - Endotracheal Gram Stain - Final 11/13/17 12:54 Sputum - Endotracheal Sputum Culture - Pending 11/08/17 10:49 Blood - Peripheral Aerobic Blood Culture - Final No growth in 5 days 11/08/17 10:49 Blood - Peripheral Anaerobic Blood Culture - Final No growth in 5 days 11/07/17 06:20 Blood - Peripheral Aerobic Blood Culture - Final Staphylococcus aureus 11/07/17 06:20 Blood - Peripheral Anaerobic Blood Culture - Final No growth in 5 days 11/06/17 05:39 Blood - Peripheral Aerobic Blood Culture - Final Staphylococcus aureus 11/06/17 05:39 Blood - Peripheral Anaerobic Blood Culture - Final No growth in 5 days Lab - Hematology Results 11/14/17 05:35 WBC 8.6 RBC 3.00 L Hgb 8.6 L Hct 25.7 L MCV 85.5 MCH 28.8 MCHC 33.7 RDW 13.3 Plt Count 226 MPV 9.0 Lab - Chemistry Results 11/12/17 11/12/17 11/12/17 12:44 18:19 23:42 Sodium Potassium Chloride Carbon Dioxide Anion Gap BUN Creatinine Estimated GFR POC Glucose 96 129 H 121 H Random Glucose Calcium Magnesium Total Bilirubin AST ALT Alkaline Phosphatase Total Protein Albumin 11/13/17 11/14/17 11/14/17 06:10 00:38 05:35 Sodium 143 Potassium 3.5 Chloride 111 H Carbon Dioxide 22.3 Anion Gap 10 BUN 11 Creatinine 0.80 Estimated GFR Greater than 89 POC Glucose 132 H 106 Random Glucose 91 Calcium 7.8 L Magnesium 2.1 Total Bilirubin 0.7 AST 28 ALT 11 L Alkaline Phosphatase 51 Total Protein 8.4 H D Albumin 1.7 L 11/14/17 11/14/17 07:44 11:35 Sodium Potassium Chloride Carbon Dioxide Anion Gap BUN Creatinine Estimated GFR POC Glucose 88 94 Random Glucose Calcium Magnesium Total Bilirubin AST ALT Alkaline Phosphatase Total Protein Albumin Imaging: ITS Impressions Head CTA 11/04/17 05:39 CONCLUSION: 1. Patient is left vertebral dominant. 2. Otherwise, intracranial vessels are all patent without embolic or aneurysmal disease. Neck CTA 11/04/17 05:39 CONCLUSION: 1. Patient is left vertebral dominant. 2. Otherwise, arch and cervical vessels are patent throughout. Head CT 11/12/17 09:37 CONCLUSION: 1. Moderate-sized area of edema involving the left posterior parietal cortex unchanged from previous of 11/06/2017. Findings are most consistent with cortical infarct. There is no evidence of hemorrhage within this. . Head MRI 11/13/17 00:00 CONCLUSION: 1. Evolving bilateral areas of infarction. There is mild mass effect on the left lateral ventricle particularly the posterior horn which is effaced. Chest X-Ray 11/14/17 06:00 CONCLUSION: 1. Interval extubation and removal of the nasogastric tube. 2. Mild interval increase in hazy opacity in both lungs most characteristic of pulmonary edema. Physical Exam: GENERAL: Awake, following commands. SKIN: Warm and dry. No generalized rash. HEAD: Atraumatic. Normocephalic. No temporal wasting, or tenderness. EYES: [place] conjunctiva. Has petechia on L conjunctiva. Pupils equal, round and reactive to light. No scleral icterus. EARS, NOSE AND THROAT: Nose without bleeding or purulent nasal discharge. No sinus tenderness. Mucous membranes pink and moist. NECK: Trachea midline. Supple and not tender, no meningeal signs CARDIOVASCULAR: Regular rate and rhythm. Systolic murmur at the left sternal border. RESPIRATORY: Bilateral coarse breath sounds ABDOMEN: Soft, nondistended. Bowel sounds present and normoactive. No reaction to palpation. EXTREMITIES: No clubbing, cyanosis. Swelling of the right upper and lower extremities. No joint effusion. NEUROLOGICAL: Not moving the right upper and lower extremity. PSYCHIATRIC: Unable to assess LINE: No evidence of infection Assessment and Plan - Plan Impression MSSA sepsis L sided endocarditis AV, due to IVDU - has large vegetation AV, causing mild obstruction CVA with R sided weakness, aphasia, due to embolic event from his IE Persistent fevers - nothing new on C/S - ?drug fever IVDU Respiratory failure, has bilateral infiltrates MSSA PNA, S/P Rx Recommendation Follow blood C/S to document clearing Continue Ancef Continue Rifampin for synergy Follow temps Follow C/S Monitor progress Per CTS not surgical candidate D/W RN
[2017-11-14] MEDS: Hypromellose 0.3% Opth Gel 10 GM Bottle EACH EYE SCH (21:41)
[2017-11-15] MEDS: Sod Chloride 0.9% Inj 1,000 ML IV.CONT SCH ×3 (01:18→17:29)
[2017-11-15] MEDS: Insulin NovoLOG Aspart Correctional Sugar Inj SQ SCH ×4 (01:18→21:02)
[2017-11-15 06:09] LABS: Baso # (Auto) 0.1 th/mm3 (0.0-0.2); Baso % (Auto) 0.8 % (0.0-2.0); Eos # (Auto) 0.1 th/mm3 (0.0-0.4); Eos % (Auto) 1.2 % (0.0-4.0); Hematocrit 26.1 % (39.0-51.0); Hemoglobin 8.9 gm/dL (13.0-17.0); Lymph # (Auto) 1.6 th/mm3 (1.0-4.8); Lymph % (Auto) 16.2 % (9.0-44.0); Mean Corpuscular Hemoglobin 28.8 pg (27.0-34.0); Mean Corpuscular Volume 84.9 fL (80.0-100.0); Mean Platelet Volume 8.9 fL (7.0-11.0); Mono # (Auto) 0.5 th/mm3 (0.0-0.9); Mono % (Auto) 4.9 % (0.0-8.0); Neut # (Auto) 7.5 th/mm3 (1.8-7.7); Neut % (Auto) 76.9 % (16.0-70.0); Platelet Count 251 th/mm3 (150-450); Red Blood Count 3.07 mil/mm3 (4.50-5.90); Red Cell Distribution Width 13.1 % (11.6-17.2); White Blood Count 9.7 th/mm3 (4.0-11.0)
[2017-11-15 06:25] LABS: Alanine Aminotransferase 12 U/L (12-78); Albumin 1.9 g/dL (3.4-5.0); Anion Gap 10 meq/L (5-15); Aspartate Aminotransferase 28 U/L (15-37); Blood Urea Nitrogen 12 mg/dL (7-18); Calcium 7.7 mg/dL (8.5-10.1); Carbon Dioxide 21.2 meq/L (21.0-32.0); Chloride 111 meq/L (98-107); Glomerular Filtration Rate Greater Than 89 mL/min (>89); Glucose,Random 91 mg/dL (74-106); Magnesium 2.2 mg/dL (1.5-2.5); Phosphorus 3.1 mg/dL (2.5-4.9); Potassium 3.5 meq/L (3.5-5.1); Sodium 142 meq/L (136-145)
[2017-11-15 06:29] LABS: Alkaline Phosphatase 55 U/L (45-117); Total Protein 8.3 g/dL (6.4-8.2)
--- NOTE | 2017-11-15 07:38 | P.PNNEU ---
Subjective Subjective Comments: off sedatives off vent Active Medications: Active Medications Acetaminophen (Tylenol) 650 mg PO Q6H PRN PRN Reason: TEMPERATURE > 101 F Last Admin: 11/12/17 01:19 Dose: 650 mg Albuterol (Duoneb Neb (John)) 1 ampul NEB Q4HR NEB [facility] Last Admin: 11/15/17 04:25 Dose: 1 ampul Albuterol (Albuterol Neb (Prn)) 2.5 mg NEB Q2HR NEB PRN PRN Reason: DYSPNEA Artificial Tears (Genteal Severe Dry Eye Relief 0.3% Opth Gel) 1 drops EACH EYE HS [facility] Last Admin: 11/14/17 21:41 Dose: 1 drops Chlorhexidine Gluconate (Peridex 0.12% Oral Kit) 15 ml OROPHARYNG BID@0800, 1999 [facility] Last Admin: 11/14/17 21:35 Dose: Not Given Clonidine HCl (Catapres) 0.1 mg PO Q6H PRN PRN Reason: SBP>160, DBP>90 Dextrose (D50w Vial) 50 ml IV.PUSH UNSCH PRN PRN Reason: PER HYPOGLYCEMIA PROTOCOL Flumazenil (Romazecon Inj) 0.2 mg IV.PUSH Q1M PRN PRN Reason: OVERSEDATION Glucagon (Glucagon Inj) 1 mg OTHER PRN PRN PRN Reason: for Hypoglycemia Protocol Hyoscyamine (Levsin Liq) 0.125 mg SL Q4H PRN PRN Reason: SECRETIONS Propofol (Diprivan 1000 Mg/100 Ml Inj) 1,000 mg in 100 mls @ 2.448 mls/hr IV.CONT TITRATE PRN; Protocol PRN Reason: Per Protocol Last Titration: 11/14/17 07:00 Dose: Infused Levetiracetam (Keppra 1000 Mg/100 Ml Premix) 100 mls @ 400 mls/hr IV.SIG Q12H [facility] Last Infusion: 11/14/17 23:57 Dose: Infused Cefazolin Sodium 2,000 mg/ (Sodium Chloride) 120 mls @ 240 mls/hr IV.SIG Q8H [facility] Last Admin: 11/15/17 01:17 Dose: 240 mls/hr Sodium Chloride (Ns Inj) 1,000 mls @ 70 mls/hr IV.CONT .[id number] [facility] Last Admin: 11/15/17 01:18 Dose: 70 mls/hr Magnesium Sulfate Inj 4 gm/ (Sodium Chloride) 100 mls @ 50 mls/hr IV.SIG UNSCH PRN PRN Reason: For Magnesium 0.9 - 1.1 mg/dL Magnesium Sulfate Inj 2 gm/ (Sodium Chloride) 100 mls @ 50 mls/hr IV.SIG UNSCH PRN PRN Reason: For Magnesium 1.2 - 1.6 mg/dL Potassium Chloride (Kcl 40 Meq Premix Inj) 40 meq in 100 mls @ 25 mls/hr IV.SIG Q2H PRN PRN Reason: For Potassium 2.8 - 3.2 mEq/L Potassium Chloride (Kcl 20 Meq Premix Inj) 20 meq in 100 mls @ 50 mls/hr IV.SIG Q2H PRN PRN Reason: For Potassium 3.3 - 3.5 mEq/L Last Infusion: 11/05/17 07:00 Dose: Infused Potassium Chloride (Kcl 40 Meq Premix Inj) 40 meq in 100 mls @ 25 mls/hr IV.SIG UNSCH PRN PRN Reason: For Potassium 3.3 - 3.5 mEq/L Last Infusion: 11/06/17 02:06 Dose: Infused Potassium Chloride (Kcl 20 Meq Premix Inj) 20 meq in 100 mls @ 50 mls/hr IV.SIG Q2H PRN PRN Reason: For Potassium 2.8 - 3.2 mEq/L Last Infusion: 11/05/17 07:00 Dose: Infused Potassium Phosphate 30 mmol/ (Sodium Chloride) 260 mls @ 42 mls/hr IV.SIG UNSCH PRN PRN Reason: SEE LABEL COMMENTS Sodium Phosphate 30 mmol/ (Sodium Chloride) 260 mls @ 42 mls/hr IV.SIG UNSCH PRN PRN Reason: For Phosphorus < 2.5 mg/dL Insulin Aspart (Novolog Insulin Correctional Sugar Inj) 0 unit SQ Q6HR [facility]; Protocol Last Admin: 11/15/17 01:18 Dose: Not Given Labetalol HCl (Trandate Inj) 10 mg IV.PUSH Q1H PRN PRN Reason: SYS BP GREATER THAN 160 MMHG Magnesium Oxide (Mag-Ox) 800 mg PO UNSCH PRN PRN Reason: For Magnesium 1.2 - 1.6 mg/dL Nitroglycerin (Nitro-Bid 2% Oint) 1 inch TOPICAL Q6HR PRN PRN Reason: SBP>160, DBP>90 Ondansetron HCl (Zofran Odt) 4 mg PO Q6H PRN PRN Reason: NAUSEA OR VOMITING Pantoprazole Sodium (Protonix Inj) 40 mg IV.PUSH DAILY [facility] Last Admin: 11/14/17 09:54 Dose: 40 mg Potassium Bicarb/Potassium Chloride (K-Lyte Cl Eff) 50 meq PO ONCE [facility] Last Admin: 11/04/17 21:31 Dose: 50 meq Potassium Bicarb/Potassium Chloride (K-Lyte Cl Eff) 50 meq PO UNSCH PRN PRN Reason: For Potassium 3.3 - 3.5 mEq/L Potassium Phosphate (K-Phos Original) 2,000 mg PO UNSCH PRN PRN Reason: SEE LABEL COMMENTS Potassium Phosphate (K-Phos Original) 2,000 mg PO Q4H PRN PRN Reason: Phosphorus Less Than 2.5 mg/dL Rifampin (Rifampin) 300 mg PO Q12HR [facility] Last Admin: 11/14/17 21:02 Dose: 300 mg Senna/Docusate Sodium (Liv-Colace) 1 tab PO BID [facility] Last Admin: 11/14/17 21:02 Dose: 1 tab Sodium Chloride (Ns Flush) 2 ml IV.FLUSH BID [facility] Last Admin: 11/14/17 21:35 Dose: 2 ml Sodium Chloride (Ns Flush) 2 ml IV.FLUSH PRN PRN PRN Reason: FLUSH AFTER USING IV ACCESS Allergies/Adverse Reactions: Allergies Allergy/AdvReac Type Severity Reaction Status Date / Time No Known Allergies Allergy Unverified 10/30/17 21:54 Physical Exam Vital signs: Vital Signs 11/14/17 08:00 11/14/17 08:22 11/14/17 11:15 Temperature 98.6 F Pulse Rate 100 H 102 H 105 H Respiratory Rate 26 H 14 16 Blood Pressure 143/64 H Pulse Oximetry 95 11/14/17 12:00 11/14/17 16:00 11/14/17 16:05 Temperature 98.6 F 98.5 F Pulse Rate 106 H 99 H 74 Respiratory Rate 27 H 28 H 16 Blood Pressure 130/60 140/63 Pulse Oximetry 96 95 11/14/17 20:00 11/14/17 20:44 11/15/17 00:00 Temperature 98.4 F 98.0 F Pulse Rate 100 H 99 H 106 H Respiratory Rate 24 20 25 H Blood Pressure 152/68 H 140/62 Pulse Oximetry 95 94 L 95 11/15/17 00:29 11/15/17 02:16 11/15/17 04:00 Temperature 99.6 F Pulse Rate 101 H 80 Respiratory Rate 19 26 H Blood Pressure 151/67 H Pulse Oximetry 96 94 L 11/15/17 04:16 11/15/17 04:26 11/15/17 06:00 Temperature Pulse Rate 102 H 102 H 106 H Respiratory Rate 22 Blood Pressure Pulse Oximetry Intake & Output 11/14/17 11/15/17 11/15/17 18:59 06:59 18:59 Intake Total 2980 / 2980 1100 / 1100 Output Total 1700 / 1700 1450 / 1450 Balance 1280 / 1280 -350 / -350 Weight 98.1 kg Intake: IV 2260 / 2260 1100 / 1100 Diprivan 1000 mg/100 ml Inj 1, 100 / 100 000 mg In 100 ml @ 5 MCG/KG/MIN 2.448 mls/hr IV.CONT TITRATE PRN Rx#:[id number] NS Inj 1,000 ML @ 70 mls/hr IV. 1000 / 1000 1000 / 1000 CONT .[id number] JOHN Rx#:[id number] KCl 10 mEq Premix Inj 10 meq In 400 / 400 100 ml @ 100 mls/hr IV.SIG Q1H JOHN Rx#:[id number] Ancef Inj 2,000 MG In NS Inj 360 / 360 100 ML @ 240 mls/hr IV.SIG Q8H JOHN Rx#:[id number] fentaNYL 10 mcg/mL Premix Drip 250 / 250 2,500 mcg In 250 ml @ 50 MCG/HR 5 mls/hr IV.SIG TITRATE PRN Rx #:[id number] Keppra 1000 mg/100 mL Premix 100 / 100 100 / 100 100 ML @ 400 mls/hr IV.SIG Q12H JOHN Rx#:[id number] Oral 720 / 720 Output: Urine Amount (Catheter) 1700 / 1700 1450 / 1450 Condom 1700 / 1700 1450 / 1450 Other: Date of Last Bowel Movement 11/14/17 # Bowel Movements 0 # Incontinent Bowel Movements 3 1 Narrative: moving left well not r awake alert - Urinary Catheter Management Indwelling Urethral Catheter Cath placed during this visit: no Reason for continuing: Not indwelling catheter Condom Cath placed during this visit: yes Reason for continuing: Not indwelling catheter Insertion date: 11/12/17 Straight Cath placed during this visit: no Reason for continuing: Not indwelling catheter Objective Laboratory Results - last 24 hr 11/14/17 11/14/17 11/15/17 07:44 11:35 00:09 WBC RBC Hgb Hct MCV MCH MCHC RDW Plt Count MPV Neut % (Auto) Lymph % (Auto) [place] % (Auto) Eos % (Auto) Baso % (Auto) Neut # (Auto) Lymph # (Auto) [place] # (Auto) Eos # (Auto) Baso # (Auto) WBC Differential Differential Comment Sodium Potassium Chloride Carbon Dioxide Anion Gap BUN Creatinine Estimated GFR POC Glucose 88 94 107 Random Glucose Calcium Phosphorus Magnesium Total Bilirubin AST ALT Alkaline Phosphatase Total Protein Albumin 11/15/17 11/15/17 05:05 05:05 WBC 9.7 RBC 3.07 L Hgb 8.9 L Hct 26.1 L MCV 84.9 MCH 28.8 MCHC 34.0 RDW 13.1 Plt Count 251 MPV 8.9 Neut % (Auto) 76.9 H Lymph % (Auto) 16.2 [place] % (Auto) 4.9 Eos % (Auto) 1.2 Baso % (Auto) 0.8 Neut # (Auto) 7.5 Lymph # (Auto) 1.6 [place] # (Auto) 0.5 Eos # (Auto) 0.1 Baso # (Auto) 0.1 WBC Differential . Differential Comment Auto diff final Sodium 142 Potassium 3.5 Chloride 111 H Carbon Dioxide 21.2 Anion Gap 10 BUN 12 Creatinine 0.78 Estimated GFR Greater than 89 POC Glucose Random Glucose 91 Calcium 7.7 L Phosphorus 3.1 Magnesium 2.2 Total Bilirubin 1.0 AST 28 ALT 12 Alkaline Phosphatase 55 Total Protein 8.3 H Albumin 1.9 L Microbiology 11/13/17 12:54 Gram Stain - Final Sputum - Endotracheal Sputum Culture - Preliminary Immature growth - reincubate 11/11/17 11:55 Aerobic Blood Culture - Preliminary Blood - Peripheral No growth in 3 days Anaerobic Blood Culture - Preliminary No growth in 3 days 11/11/17 11:50 Aerobic Blood Culture - Preliminary Blood - Peripheral No growth in 3 days Anaerobic Blood Culture - Preliminary No growth in 3 days 11/09/17 10:20 Aerobic Blood Culture - Final Blood - Peripheral No growth in 5 days Anaerobic Blood Culture - Final QNS - See aerobic report. 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 when off sedatives? -- 11/13/17 no change leg tremor vs sz yest ct stable eeg neg sz on keppra pk to dc sedatives today on keppa 1000 bid 11/15/17 no sz loks well on keppra eeg neg stable neuro left mca cva endocarditis ready for rehab neurowise
--- NOTE | 2017-11-15 09:05 | P.PNCC ---
Subjective Subjective Remarks/Hospital Course: This is a 31yM who recently presented to the emergency department on 10/30 with subjective fevers and back pain. At that time he was given an MRI of the spine due to his IV drug use and concern for endocarditis. His MRI spine was negative and he was discharged home. Blood cultures that were drawn at that time returned 4 out of 4 bottles with MSSA. Patient was attempted to be contacted at his home to return for medical attention, but he was unable to be contacted. He represents today with acute altered mental status and was found on the floor of his apartment. He is aphasic and has significant right-sided hemiparesis/weakness. CT brain demonstrates a small amount of subarachnoid blood and small areas of decreased density suggestive of acute infarcts. MRI confirms multiple small areas of infarct. I evaluated the patient and he is quite altered and aphasic and no additional information is available from him. I performed bedside critical care ultrasonography which demonstrates a large mobile mass on the aortic valve with associated severe aortic regurgitation. No pericardial effusion. In addition all this, the patient has a new finding of an INR of 9.8 as well as an elevated salicylate level of 28. Given there is recent community history seated to suggest that some of the IV drugs in the area have been contaminated with rapid poison and or Coumadin/warfarin, I have a high degree of suspicion that the patient may have injected contaminated IV drugs. I have contacted poison control who is following along. We have ordered 4 units of FFP emergently to be released to the patient. We have called pharmacy and due to a national shortage of the drug, we do not have any [facility]ra available. I have also ordered FEIBA as an alternative to K [facility]ra. 11/05: INR has been corrected to normal. Repeat head CT shows no evidence of additional bleed. Noteworthy on head CT is new edema involving most of the temporal lobe on the left side, arising in the area of ischemic infarct. Other smaller defects are noted bilaterally. Blood cultures are growing MSSA, consistent with his IV drug use and aortic valve vegetation. Bilateral lung infiltrates noted on today's chest x-ray consistent with prehospital aspiration. 11/06: Tolerating spontaneous breathing trial with acceptable pressure support but oxygenation markedly impaired due to prehospital aspiration pneumonitis. No change in neurologic status. Cultures continued to be positive for staph aureus. 11/07: Continues to tolerate spontaneous breathing trials with acceptable pressure support. Minimal change in neurologic status and I cannot get him to follow any commands. Pre-albumin surprisingly low at 11, continue aggressive nutritional support. 11/08: Extubated himself yesterday morning and tolerated spontaneous breathing with supplemental oxygen during the day. In the early evening he became unable to protect his airway and his respiratory effort became much weaker. He required endotracheal intubation and mechanical ventilation thereafter. While extubated he did respond to simple commands including moving his left hand. He did repeat simple 2 and 3 word statements. The chest x-ray following reintubation is consistent with heart failure although the hemodynamics belie that, more consistent with an inflammatory process. 11/09: Tolerating ongoing diuresis. Gas exchange improving. Difficult to assess while sedated we will aim for re-extubation. 11/10: Ongoing septic pattern. First extubation was poorly tolerated by the patient and he remains to obtunded to extubate at this time. Converted from APRV back to conventional ventilation and now reducing PEEP. 11/11: Seen and examined. Remains febrile T-max of 101. Hemodynamically stable. Positive BM today. Tolerating tube feeding. 11/12: Remains intubated sedated with propofol and fentanyl. T-max 101.4. FiO2 35% but PEEP remains high at 12. Start weaning PEEP as tolerated. Attempt CPAP trials 11/13: Currently on propofol and fentanyl but more awake moving left upper and lower extremities spontaneously following some commands. Tolerating CPAP at high settings. Getting MRI per Dr. Hatfield, CT of the head yesterday was unchanged. T-max 101.1 11/14: Extubated 11/13 without complication. T-max 100.8. Continues with expressive aphasia. Right leg is out of bed. SUBJECTIVE: 11/15: Resting comfortably in bed. Advance to clear liquid diet. Replace potassium today. Neurologically cleared for rehab per neurologist Objective Vital Signs / I&O: Vital Signs 11/14/17 11:15 11/14/17 12:00 11/14/17 16:00 Temperature 98.6 F 98.5 F Pulse Rate 105 H 106 H 99 H Respiratory Rate 16 27 H 28 H Blood Pressure 130/60 140/63 Pulse Oximetry 96 95 11/14/17 16:05 11/14/17 20:00 11/14/17 20:44 Temperature 98.4 F Pulse Rate 74 100 H 99 H Respiratory Rate 16 24 20 Blood Pressure 152/68 H Pulse Oximetry 95 94 L 11/15/17 00:00 11/15/17 00:29 11/15/17 02:16 Temperature 98.0 F Pulse Rate 106 H 101 H 80 Respiratory Rate 25 H 19 Blood Pressure 140/62 Pulse Oximetry 95 96 11/15/17 04:00 11/15/17 04:16 11/15/17 04:26 Temperature 99.6 F Pulse Rate 102 H 102 H Respiratory Rate 26 H 22 Blood Pressure 151/67 H Pulse Oximetry 94 L 11/15/17 06:00 11/15/17 08:00 11/15/17 08:24 Temperature Pulse Rate 106 H 104 H 101 H Respiratory Rate 28 H Blood Pressure Pulse Oximetry 34 L Intake & Output 11/14/17 11/15/17 11/15/17 18:59 06:59 18:59 Intake Total 2980 / 2980 1220 / 1220 Output Total 1700 / 1700 1450 / 1450 Balance 1280 / 1280 -230 / -230 Weight 98.1 kg Intake: IV 2260 / 2260 1220 / 1220 Diprivan 1000 mg/100 ml Inj 1, 100 / 100 000 mg In 100 ml @ 5 MCG/KG/MIN 2.448 mls/hr IV.CONT TITRATE PRN Rx#:[id number] NS Inj 1,000 ML @ 70 mls/hr IV. 1000 / 1000 1000 / 1000 CONT .[id number] JONATHON Rx#:[id number] KCl 10 mEq Premix Inj 10 meq In 400 / 400 100 ml @ 100 mls/hr IV.SIG Q1H JONATHON Rx#:[id number] Ancef Inj 2,000 MG In NS Inj 360 / 360 120 / 120 100 ML @ 240 mls/hr IV.SIG Q8H JONATHON Rx#:[id number] fentaNYL 10 mcg/mL Premix Drip 250 / 250 2,500 mcg In 250 ml @ 50 MCG/HR 5 mls/hr IV.SIG TITRATE PRN Rx #:[id number] Keppra 1000 mg/100 mL Premix 100 / 100 100 / 100 100 ML @ 400 mls/hr IV.SIG Q12H JONATHON Rx#:[id number] Oral 720 / 720 Output: Urine Amount (Catheter) 1700 / 1700 1450 / 1450 Condom 1700 / 1700 1450 / 1450 Other: Date of Last Bowel Movement 11/14/17 11/14/17 # Bowel Movements 0 # Incontinent Bowel Movements 3 1 Result Diagrams: 11/15/17 05:05 11/15/17 05:05 Other Results: Microbiology 11/13/17 12:54 Sputum - Endotracheal Gram Stain - Final 11/13/17 12:54 Sputum - Endotracheal Sputum Culture - Preliminary Immature growth - reincubate 11/11/17 11:55 Blood - Peripheral Aerobic Blood Culture - Preliminary No growth in 3 days 11/11/17 11:55 Blood - Peripheral Anaerobic Blood Culture - Preliminary No growth in 3 days 11/11/17 11:50 Blood - Peripheral Aerobic Blood Culture - Preliminary No growth in 3 days 11/11/17 11:50 Blood - Peripheral Anaerobic Blood Culture - Preliminary No growth in 3 days 11/09/17 10:20 Blood - Peripheral Aerobic Blood Culture - Final No growth in 5 days 11/09/17 10:20 Blood - Peripheral Anaerobic Blood Culture - Final QNS - See aerobic report. 11/08/17 10:49 Blood - Peripheral Aerobic Blood Culture - Final No growth in 5 days 11/08/17 10:49 Blood - Peripheral Anaerobic Blood Culture - Final No growth in 5 days 11/07/17 06:20 Blood - Peripheral Aerobic Blood Culture - Final Staphylococcus aureus 11/07/17 06:20 Blood - Peripheral Anaerobic Blood Culture - Final No growth in 5 days 11/06/17 05:39 Blood - Peripheral Aerobic Blood Culture - Final Staphylococcus aureus 11/06/17 05:39 Blood - Peripheral Anaerobic Blood Culture - Final No growth in 5 days 11/05/17 04:22 Blood - Peripheral Aerobic Blood Culture - Final Staphylococcus aureus 11/05/17 04:22 Blood - Peripheral Anaerobic Blood Culture - Final No growth in 5 days 11/06/17 08:55 Sputum - Endotracheal Gram Stain - Final 11/06/17 08:55 Sputum - Endotracheal Sputum Culture - Final Staphylococcus aureus 11/05/17 11:40 Sputum - Endotracheal Gram Stain - Final 11/05/17 11:40 Sputum - Endotracheal Sputum Culture - Final Staphylococcus aureus 11/05/17 01:34 Catheterized Urine Urine Culture - Final No growth in 48 hours 11/04/17 06:45 Blood - Peripheral Aerobic Blood Culture - Final Staphylococcus aureus 11/04/17 06:45 Blood - Peripheral Anaerobic Blood Culture - Final Staphylococcus aureus 11/04/17 06:40 Blood - Peripheral Aerobic Blood Culture - Final Staphylococcus aureus 11/04/17 06:40 Blood - Peripheral Anaerobic Blood Culture - Final Staphylococcus aureus Imaging: Chest X-Ray 11/04/17 05:39 CONCLUSION: 1. Patchy left perihilar and right basilar airspace disease with possible developing right-sided effusion. 2. Lungs are hypoinflated. Head CT 11/04/17 05:39 CONCLUSION: 1. There appear to be new, subcortical white matter infarct posteriorly in the right parietal lobe. 2. There also appears to be some faint subarachnoid hemorrhage over the high parietal convex cities bilaterally 3. No fractures, Report was called by [ Dr. Ellis to Dr. Sloan in the ED at 0614 hours] Head CTA 11/04/17 05:39 CONCLUSION: 1. Patient is left vertebral dominant. 2. Otherwise, intracranial vessels are all patent without embolic or aneurysmal disease. Neck CTA 11/04/17 05:39 CONCLUSION: 1. Patient is left vertebral dominant. 2. Otherwise, arch and cervical vessels are patent throughout. Head MRI 11/04/17 06:36 CONCLUSION: 1. Acute infarcts as described above suggesting embolic occlusion as described above. Largest areas in the left posterior sylvian region. Chest X-Ray 11/05/17 00:32 CONCLUSION: 1. . Worsening bilateral patchy airspace disease. Probable associated right- sided effusion. 2. Interval placement of a right subclavian central venous catheter, endotracheal and nasogastric tubes as detailed above. All appear to be appropriately positioned. No pneumothorax. Head CT 11/05/17 08:43 CONCLUSION: 1. New large area of edema in the left middle cerebral artery territory at site of infarction. There is no significant mass effect or midline shift. 2. Cerebellar areas of edema involving the right temporal parietal watershed region as well as the left caudate nucleus at site of restricted diffusion seen on MRI. 3. The previously noted apparent subtle subarachnoid hemorrhage over the high parietal convexities is no longer distinctly visualized. 4. No new hemorrhage. Head CT 11/06/17 07:54 CONCLUSION: 1. Persistent large area of cytotoxic edema involving the left temporoparietal lobe as well as focal edema involving the head of the left caudate nucleus consistent with known acute infarction involving the left middle cerebral artery. There is a small area of edema involving the right posterior parietal occipital lobe which is stable. 2. No acute hemorrhage, midline shift, extra-axial bleed or ventriculomegaly. Chest X-Ray 11/07/17 21:17 CONCLUSION: Diffuse pulmonary consolidation likely representing diffuse processes such as edema. This is clearly worsened since the prior exam. Chest X-Ray 11/12/17 06:00 CONCLUSION: 1. Interval improvement in pulmonary edema. 2. Moderate residual airspace disease remains as well as an apparent small left effusion. Head CT 11/12/17 09:37 CONCLUSION: 1. Moderate-sized area of edema involving the left posterior parietal cortex unchanged from previous of 11/06/2017. Findings are most consistent with cortical infarct. There is no evidence of hemorrhage within this. . Head MRI 11/13/17 00:00 CONCLUSION: 1. Evolving bilateral areas of infarction. There is mild mass effect on the left lateral ventricle particularly the posterior horn which is effaced. Chest X-Ray 11/14/17 06:00 CONCLUSION: 1. Interval extubation and removal of the nasogastric tube. 2. Mild interval increase in hazy opacity in both lungs most characteristic of pulmonary edema. Objective Remarks: GENERAL: 31-year-old male currently resting in bed on nasal cannula in no acute distress HEENT: Normocephalic. Atraumatic. Pupils 4 mm, equal, round, reactive, conjugate. NECK: Trachea is midline. No JVD or thyromegaly CHEST: Equal chest rise. Few scattered anterior crackles throughout. No wheezing CARDIOVASCULAR: S1, S2. No S4. 2/6 murmur right upper sternal border ABDOMEN: Soft, nontender, nondistended. No guarding. Bowel sounds present. MUSCULOSKELETAL: No peripheral edema. Multiple linear scars over the bilateral upper and lower extremities consistent with needle fan. [place] lesions+ NEUROLOGICAL Musculoskeletal strength on the right is 1/5 in both the upper and lower extremities. Musculoskeletal strength on the left is 4 out of 5. 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 Restriction effusion right parietal /occipital region. Evolving infarcts with mild mass-effect in left lateral ventricle/effacement of the posterior horn. - MRI brain revealed left posterior MCA CVA also involving the right occipital region and left caudate nucleus likely embolic -CT brain yesterday after seizures did not show any acute changes. MRI brain ordered by Dr. Hatfield - neurosurgery/neurology consultation completed. Dr. Barton no intervention. Dr. Hatfield following - EEG: Abnormal EEG at times with moderate slowing more left compared to the right, likely due to structural lesion such as stroke, but no apparent evidence of any epileptiform features. Some of the slowing may be dueto sedation. Clinical correlation -Continue levetiracetam 1000 mg IV twice daily Acetaminophen 650 mg every 6 hours as needed fever/pain 1 through 10 Urine drug screen positive for fentanyl and salicylates and THC Respiratory: Hypoxemic respiratory failure Prehospital aspiration pneumonitis/MSSA -Required intubation for inability to control airway. Extubated 11/13 Nasal cannula to maintain saturations greater than equal to 92% I incentive spirometry while awake Albuterol/ipratropium aerosols every 4 hours with albuterol aerosols every 2 hours as needed for dyspnea Chest x-ray 11/14 revealed pulmonary edema. Recheck in a.m. 11/16. Cardiovascular: Mixed septic/cardiogenic shock Severe aortic regurgitation Large aortic valve vegetation 1x1.7cm Mild aortic stenosis from vegetation 2D echocardiogram 11/04 revealed EF 60-65%. Severe AR. Vegetation 1.01.7 cm Currently not requiring vasopressors and/or antihypertensives At present he is not a candidate for valve replacement surgery, per CTSDr. Oralia 11/06 note Currently on normal saline at 70 cc an hour Renal/: Acute kidney injury -Continue Fontaine catheter - monitor uop -- Strict I/Os Repeat BMP in a.m. 11/15 FEN/GI: Lactic Acidosis -resolved Acute protein calorie malnutrition- severe, temporal muscle wasting Hypoalbuminemia Clear liquid diet. Speech therapy evaluate and treat for swallowing/effusion Pantoprazole for GI prophylaxis Docusate sodium/senna 1 tablet twice daily for bowel regimen. 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 Complete levofloxacin stop date 11/11 Blood cultures positive for MSSA 11/07, and . Subsequent 11/13, 11/11/11/09 and 11/08 no growth to date. Sputum positive for MSSA, 11/05 At present he is not a candidate for valve replacement surgery, seen by Dr. Barton 11/06 Endocrine: Low TSH 0.13 -- SSI aspart low protocol every 6 hours Free T4 was normal at 5.3. Recheck TSH in 2-4 weeks Prophylaxis: GI Prophylaxis Pantoprazole DVT Prophylaxis -- SCDs holding pharmacologic DVT prophylaxis due to risks of hemorrhagic conversion, until cleared by neurology and neurosurgery Lines: Right subclavian CVL fontaine Level 2 follow-up
[2017-11-15] MEDS: Chlorhexidine 0.12% Oral Kit 15 ML UDC OROPHARYNG SCH ×2 (09:18→21:02)
[2017-11-15] MEDS: levETIRAcetam 500 MG Tablet PO SCH ×2 (09:28→21:03)
[2017-11-15] MEDS: Pantoprazole Inj 40 MG Vial IV.PUSH SCH (09:33)
[2017-11-15] MEDS: Senna/Docusate Sodium 8.6/50 MG Tablet PO SCH ×2 (09:33→21:05)
--- NOTE | 2017-11-15 15:27 | P.PNID ---
Subjective Remarks: ID coverage: Patient is a 31-year-old male, who initially presented to [place] emergency room October 30 complaining of 3 day history of headache. He gave a history of IV drug use. He was not febrile during that visit. WBC was normal. He underwent CT of the brain which was negative. Also underwent MRI of the thoracic and lumbar spine which were both negative for any infection. 2 blood cultures were done at that time and he was discharged. He came back to the hospital after his friends found him on the kitchen floor. He was reportedly unable to move his right side. And he was also noted to have some difficulty speaking. He remains afebrile. His white count is elevated. His CT of the head is now showing some findings in the right parietal area, as well as faint subarachnoid hemorrhage. CTA of the neck is negative. He has evidence of right-sided weakness, as well as expressive aphasia. The 2 blood cultures done on his ED visit is now reported as growing MSSA. Infectious disease consultation has been requested to evaluate the patient. Notes reviewed Afebrile. On room air. Following commands. Not moving the right side. Not verbally interacting. CT head no change in edema Blood culture from 11/09 and 11/11 has no growth. BC (+) 11/04-11/07 Sputum with MSSA 11/05 WBC normal CTS evaluation noted - not a surgical candidate Echocardiogram: The left ventricular systolic function is normal with an estimated ejection fraction in the range of 60-65%. Trace mitral valve regurgitation. Large vegetation noted on the aortic valve (1.7cm x 1.0cm) Mild obstruction of the aortic valve due to vegetation with a mean gradient of 11 mmHg Severe eccentric aortic regurgitation There is trace tricuspid valve regurgitation. Antibiotics: Cefazolin Rifampin Past Medical History: Diabetes Hypertension IVDU Allergies/Adverse Reactions: Allergies No Known Allergies Allergy (Unverified 10/30/17 21:54) Objective Vital Signs 11/14/17 16:00 11/14/17 16:05 11/14/17 20:00 Temperature 98.5 F 98.4 F Pulse Rate 99 H 74 100 H Respiratory Rate 28 H 16 24 Blood Pressure 140/63 152/68 H Pulse Oximetry 95 95 11/14/17 20:44 11/15/17 00:00 11/15/17 00:29 Temperature 98.0 F Pulse Rate 99 H 106 H 101 H Respiratory Rate 20 25 H 19 Blood Pressure 140/62 Pulse Oximetry 94 L 95 96 11/15/17 02:16 11/15/17 04:00 11/15/17 04:16 Temperature 99.6 F Pulse Rate 80 102 H Respiratory Rate 26 H Blood Pressure 151/67 H Pulse Oximetry 94 L 11/15/17 04:26 11/15/17 06:00 11/15/17 08:00 Temperature 98.4 F Pulse Rate 102 H 106 H 103 H Respiratory Rate 22 30 H Blood Pressure 148/65 H Pulse Oximetry 94 L 11/15/17 08:24 11/15/17 10:00 11/15/17 12:00 Temperature 98.2 F Pulse Rate 101 H 105 H 96 H Respiratory Rate 28 H 27 H Blood Pressure 138/68 Pulse Oximetry 34 L 96 11/15/17 12:32 11/15/17 14:00 Temperature Pulse Rate 99 H 98 H Respiratory Rate 30 H Blood Pressure Pulse Oximetry Intake & Output 11/14/17 11/15/17 11/15/17 18:59 06:59 18:59 Intake Total 2980 / 2980 1220 / 1220 120 / 120 Output Total 1700 / 1700 1450 / 1450 Balance 1280 / 1280 -230 / -230 120 / 120 Weight 98.1 kg Intake: IV 2260 / 2260 1220 / 1220 120 / 120 Diprivan 1000 mg/100 ml Inj 1, 100 / 100 000 mg In 100 ml @ 5 MCG/KG/MIN 2.448 mls/hr IV.CONT TITRATE PRN Rx#:[id number] NS Inj 1,000 ML @ 70 mls/hr IV. 1000 / 1000 1000 / 1000 CONT .[id number] JONATH[facility] Rx#:[id number] KCl 10 mEq Premix Inj 10 meq In 400 / 400 100 ml @ 100 mls/hr IV.SIG Q1H JONATH[facility] Rx#:[id number] Ancef Inj 2,000 MG In NS Inj 360 / 360 120 / 120 120 / 120 100 ML @ 240 mls/hr IV.SIG Q8H JONATHON Rx#:[id number] fentaNYL 10 mcg/mL Premix Drip 250 / 250 2,500 mcg In 250 ml @ 50 MCG/HR 5 mls/hr IV.SIG TITRATE PRN Rx #:[id number] Keppra 1000 mg/100 mL Premix 100 / 100 100 / 100 100 ML @ 400 mls/hr IV.SIG Q12H [facility] Rx#:[id number] Oral 720 / 720 Output: Urine Amount (Catheter) 1700 / 1700 1450 / 1450 Condom 1700 / 1700 1450 / 1450 Other: Date of Last Bowel Movement 11/14/17 11/14/17 # Bowel Movements 0 # Incontinent Bowel Movements 3 1 11/13/17 12:54 Sputum - Endotracheal Gram Stain - Final 11/13/17 12:54 Sputum - Endotracheal Sputum Culture - Final 11/11/17 11:55 Blood - Peripheral Aerobic Blood Culture - Preliminary No growth in 4 days 11/11/17 11:55 Blood - Peripheral Anaerobic Blood Culture - Preliminary No growth in 4 days 11/11/17 11:50 Blood - Peripheral Aerobic Blood Culture - Preliminary No growth in 4 days 11/11/17 11:50 Blood - Peripheral Anaerobic Blood Culture - Preliminary No growth in 4 days 11/09/17 10:20 Blood - Peripheral Aerobic Blood Culture - Final No growth in 5 days 11/09/17 10:20 Blood - Peripheral Anaerobic Blood Culture - Final QNS - See aerobic report. 11/08/17 10:49 Blood - Peripheral Aerobic Blood Culture - Final No growth in 5 days 11/08/17 10:49 Blood - Peripheral Anaerobic Blood Culture - Final No growth in 5 days Lab - Hematology Results 11/14/17 11/15/17 05:35 05:05 WBC 8.6 9.7 RBC 3.00 L 3.07 L Hgb 8.6 L 8.9 L Hct 25.7 L 26.1 L MCV 85.5 84.9 MCH 28.8 28.8 MCHC 33.7 34.0 RDW 13.3 13.1 Plt Count 226 251 MPV 9.0 8.9 Neut % (Auto) 76.9 H Lymph % (Auto) 16.2 Rains % (Auto) 4.9 Eos % (Auto) 1.2 Baso % (Auto) 0.8 Neut # (Auto) 7.5 Lymph # (Auto) 1.6 Rains # (Auto) 0.5 Eos # (Auto) 0.1 Baso # (Auto) 0.1 WBC Differential . Differential Comment Auto diff final Lab - Chemistry Results 11/14/17 11/14/17 11/14/17 00:38 05:35 07:44 Sodium 143 Potassium 3.5 Chloride 111 H Carbon Dioxide 22.3 Anion Gap 10 BUN 11 Creatinine 0.80 Estimated GFR Greater than 89 POC Glucose 106 88 Random Glucose 91 Calcium 7.8 L Phosphorus Magnesium 2.1 Total Bilirubin 0.7 AST 28 ALT 11 L Alkaline Phosphatase 51 Total Protein 8.4 H D Albumin 1.7 L 11/14/17 11/15/17 11/15/17 11:35 00:09 05:05 Sodium 142 Potassium 3.5 Chloride 111 H Carbon Dioxide 21.2 Anion Gap 10 BUN 12 Creatinine 0.78 Estimated GFR Greater than 89 POC Glucose 94 107 Random Glucose 91 Calcium 7.7 L Phosphorus 3.1 Magnesium 2.2 Total Bilirubin 1.0 AST 28 ALT 12 Alkaline Phosphatase 55 Total Protein 8.3 H Albumin 1.9 L Imaging: ITS Impressions Head CTA 11/04/17 05:39 CONCLUSION: 1. Patient is left vertebral dominant. 2. Otherwise, intracranial vessels are all patent without embolic or aneurysmal disease. Neck CTA 11/04/17 05:39 CONCLUSION: 1. Patient is left vertebral dominant. 2. Otherwise, arch and cervical vessels are patent throughout. Head CT 11/12/17 09:37 CONCLUSION: 1. Moderate-sized area of edema involving the left posterior parietal cortex unchanged from previous of 11/06/2017. Findings are most consistent with cortical infarct. There is no evidence of hemorrhage within this. . Head MRI 11/13/17 00:00 CONCLUSION: 1. Evolving bilateral areas of infarction. There is mild mass effect on the left lateral ventricle particularly the posterior horn which is effaced. Chest X-Ray 11/14/17 06:00 CONCLUSION: 1. Interval extubation and removal of the nasogastric tube. 2. Mild interval increase in hazy opacity in both lungs most characteristic of pulmonary edema. Physical Exam: GENERAL: Awake, following commands. SKIN: Warm and dry. No generalized rash. HEAD: Atraumatic. Normocephalic. No temporal wasting, or tenderness. EYES: Pace conjunctiva. Has petechia on L conjunctiva. Pupils equal, round and reactive to light. No scleral icterus. EARS, NOSE AND THROAT: Nose without bleeding or purulent nasal discharge. No sinus tenderness. Mucous membranes pink and moist. NECK: Trachea midline. Supple and not tender, no meningeal signs CARDIOVASCULAR: Regular rate and rhythm. 2/6 systolic murmur at the left sternal border. RESPIRATORY: Bilateral coarse breath sounds ABDOMEN: Soft, nondistended. Bowel sounds present and normoactive. No reaction to palpation. EXTREMITIES: No clubbing, cyanosis. Swelling of the right upper and lower extremities. No joint effusion. NEUROLOGICAL: Not moving the right upper and lower extremity. PSYCHIATRIC: Unable to assess LINE: No evidence of infection Assessment and Plan - Plan Impression MSSA sepsis L sided endocarditis AV, due to IVDU - has large vegetation AV, causing mild obstruction CVA with R sided weakness, aphasia, due to embolic event from his IE Persistent fevers - nothing new on C/S - ?drug fever. Is lower. IVDU Respiratory failure, has bilateral infiltrates MSSA PNA, S/P Rx Recommendation Continue Ancef Continue Rifampin for synergy Follow temps Monitor progress Per CTS not surgical candidate
[2017-11-15] MEDS: Oral Hygiene Kit OROPHARYNG SCH ×3 (15:38→21:01)
[2017-11-15] MEDS: Hypromellose 0.3% Opth Gel 10 GM Bottle EACH EYE SCH (21:34)
[2017-11-16] MEDS: Insulin NovoLOG Aspart Correctional Sugar Inj SQ SCH ×3 (03:03→22:54)
[2017-11-16] MEDS: Oral Hygiene Kit OROPHARYNG SCH ×4 (03:04→22:54)
--- NOTE | 2017-11-16 06:01 | XR ---
EXAM DATE: 11/16/2017 5:38 AM EDT AGE/SEX: 31 years / Male INDICATIONS: Respiratory failure. CLINICAL DATA: This is the patient's subsequent encounter. Patient reports that signs and symptoms h ave been present for 2 weeks and indicates a pain score of Nonresponsive. MEDICAL/SURGICAL HISTORY: . Hypertension. Diabetes mellitus type II None. COMPARISON: [facility], CHEST 1V SINGLE AP, 11/14/2017. . FINDINGS: Right subclavian catheter tip projects in the right atrium. There is increased indistinctness and haz iness to the bronchopulmonary markings in the central and middle one third of both lungs. Both hemidi aphragms remain well delineated. The heart is upper limits normal size for AP technique. CONCLUSION: Increasing indistinctness and engorgement of the central bronchopulmonary markings suggestive of pulm onary edema. Electronically signed by: Nicolas Hairston MD 11/16/2017 6:00 AM EDT
[2017-11-16 06:07] LABS: Baso # (Auto) 0.1 th/mm3 (0.0-0.2); Baso % (Auto) 0.9 % (0.0-2.0); Eos # (Auto) 0.1 th/mm3 (0.0-0.4); Eos % (Auto) 1.3 % (0.0-4.0); Hematocrit 27.5 % (39.0-51.0); Hemoglobin 9.2 gm/dL (13.0-17.0); Lymph # (Auto) 1.7 th/mm3 (1.0-4.8); Lymph % (Auto) 16.8 % (9.0-44.0); Mean Corpuscular HGB Conc 33.4 % (32.0-36.0); Mean Corpuscular Hemoglobin 28.4 pg (27.0-34.0); Mean Corpuscular Volume 85.1 fL (80.0-100.0); Mean Platelet Volume 8.9 fL (7.0-11.0); Mono # (Auto) 0.5 th/mm3 (0.0-0.9); Mono % (Auto) 4.8 % (0.0-8.0); Neut # (Auto) 7.6 th/mm3 (1.8-7.7); Neut % (Auto) 76.2 % (16.0-70.0); Platelet Count 299 th/mm3 (150-450); Red Blood Count 3.23 mil/mm3 (4.50-5.90); Red Cell Distribution Width 13.3 % (11.6-17.2)
[2017-11-16 06:34] LABS: Anion Gap 10 meq/L (5-15); Blood Urea Nitrogen 12 mg/dL (7-18); Calcium 7.9 mg/dL (8.5-10.1); Carbon Dioxide 19.8 meq/L (21.0-32.0); Chloride 111 meq/L (98-107); Glomerular Filtration Rate Greater Than 89 mL/min (>89); Glucose,Random 91 mg/dL (74-106); Potassium 3.4 meq/L (3.5-5.1); Sodium 141 meq/L (136-145)
[2017-11-16] MEDS: Sod Chloride 0.9% Inj 1,000 ML IV.CONT SCH (09:44)
--- NOTE | 2017-11-16 09:49 | P.PNCC ---
Subjective Subjective Remarks/Hospital Course: This is a 31yM who recently presented to the emergency department on 10/30 with subjective fevers and back pain. At that time he was given an MRI of the spine due to his IV drug use and concern for endocarditis. His MRI spine was negative and he was discharged home. Blood cultures that were drawn at that time returned 4 out of 4 bottles with MSSA. Patient was attempted to be contacted at his home to return for medical attention, but he was unable to be contacted. He represents today with acute altered mental status and was found on the floor of his apartment. He is aphasic and has significant right-sided hemiparesis/weakness. CT brain demonstrates a small amount of subarachnoid blood and small areas of decreased density suggestive of acute infarcts. MRI confirms multiple small areas of infarct. I evaluated the patient and he is quite altered and aphasic and no additional information is available from him. I performed bedside critical care ultrasonography which demonstrates a large mobile mass on the aortic valve with associated severe aortic regurgitation. No pericardial effusion. In addition all this, the patient has a new finding of an INR of 9.8 as well as an elevated salicylate level of 28. Given there is recent community history seated to suggest that some of the IV drugs in the area have been contaminated with rapid poison and or Coumadin/warfarin, I have a high degree of suspicion that the patient may have injected contaminated IV drugs. I have contacted poison control who is following along. We have ordered 4 units of FFP emergently to be released to the patient. We have called pharmacy and due to a national shortage of the drug, we do not have any K Centra available. I have also ordered FEIBA as an alternative to K Centra. 11/05: INR has been corrected to normal. Repeat head CT shows no evidence of additional bleed. Noteworthy on head CT is new edema involving most of the temporal lobe on the left side, arising in the area of ischemic infarct. Other smaller defects are noted bilaterally. Blood cultures are growing MSSA, consistent with his IV drug use and aortic valve vegetation. Bilateral lung infiltrates noted on today's chest x-ray consistent with prehospital aspiration. 11/06: Tolerating spontaneous breathing trial with acceptable pressure support but oxygenation markedly impaired due to prehospital aspiration pneumonitis. No change in neurologic status. Cultures continued to be positive for staph aureus. 11/07: Continues to tolerate spontaneous breathing trials with acceptable pressure support. Minimal change in neurologic status and I cannot get him to follow any commands. Pre-albumin surprisingly low at 11, continue aggressive nutritional support. 11/08: Extubated himself yesterday morning and tolerated spontaneous breathing with supplemental oxygen during the day. In the early evening he became unable to protect his airway and his respiratory effort became much weaker. He required endotracheal intubation and mechanical ventilation thereafter. While extubated he did respond to simple commands including moving his left hand. He did repeat simple 2 and 3 word statements. The chest x-ray following reintubation is consistent with heart failure although the hemodynamics belie that, more consistent with an inflammatory process. 11/09: Tolerating ongoing diuresis. Gas exchange improving. Difficult to assess while sedated we will aim for re-extubation. 11/10: Ongoing septic pattern. First extubation was poorly tolerated by the patient and he remains to obtunded to extubate at this time. Converted from APRV back to conventional ventilation and now reducing PEEP. 11/11: Seen and examined. Remains febrile T-max of 101. Hemodynamically stable. Positive BM today. Tolerating tube feeding. 11/12: Remains intubated sedated with propofol and fentanyl. T-max 101.4. FiO2 35% but PEEP remains high at 12. Start weaning PEEP as tolerated. Attempt CPAP trials 11/13: Currently on propofol and fentanyl but more awake moving left upper and lower extremities spontaneously following some commands. Tolerating CPAP at high settings. Getting MRI per Dr. Hatfield, CT of the head yesterday was unchanged. T-max 101.1 11/14: Extubated 11/13 without complication. T-max 100.8. Continues with expressive aphasia. Right leg is out of bed. 11/15: Resting comfortably in bed. Advance to clear liquid diet. Replace potassium today. Neurologically cleared for rehab per neurologist SUBJECTIVE: 11/16: T-max 99.9. Currently 99. Currently on nasal cannula 2 L. Tolerated diet. Positive BM. Objective Vital Signs / I&O: Vital Signs 11/15/17 10:00 11/15/17 12:00 11/15/17 12:32 Temperature 98.2 F Pulse Rate 105 H 96 H 99 H Respiratory Rate 27 H 30 H Blood Pressure 138/68 Pulse Oximetry 96 11/15/17 14:00 11/15/17 16:00 11/15/17 16:16 Temperature 98.6 F Pulse Rate 98 H 104 H 89 Respiratory Rate 28 H 28 H Blood Pressure 142/63 H Pulse Oximetry 96 11/15/17 16:29 11/15/17 18:00 11/15/17 20:00 Temperature 99.9 F H Pulse Rate 103 H 100 H Respiratory Rate 21 Blood Pressure 145/63 H Pulse Oximetry 96 94 L 11/15/17 20:16 11/15/17 22:00 11/15/17 23:59 Temperature Pulse Rate 97 H 97 H 92 H Respiratory Rate 19 19 Blood Pressure Pulse Oximetry 94 L 11/16/17 00:00 11/16/17 02:00 11/16/17 03:52 Temperature 99 F Pulse Rate 102 H 100 H 100 H Respiratory Rate 24 20 Blood Pressure 151/65 H Pulse Oximetry 94 L 11/16/17 04:00 11/16/17 06:00 11/16/17 08:12 Temperature 99 F Pulse Rate 103 H 110 H 94 H Respiratory Rate 25 H 22 Blood Pressure 148/67 H Pulse Oximetry 95 11/16/17 08:13 Temperature Pulse Rate Respiratory Rate Blood Pressure Pulse Oximetry 98 Intake & Output 11/15/17 11/16/17 11/16/17 18:59 06:59 18:59 Intake Total 1240 / 1240 220 / 220 Output Total 1500 / 1500 1400 / 1400 Balance -260 / -260 -1180 / -1180 Weight 76.7 kg Intake: IV 1120 / 1120 100 / 100 NS Inj 1,000 ML @ 70 mls/hr IV. 1000 / 1000 CONT .[id number] [facility]ATH[facility] Rx#:[id number] Ancef Inj 2,000 MG In NS Inj 120 / 120 100 / 100 100 ML @ 240 mls/hr IV.SIG Q8H [facility] Rx#:[id number] Oral 120 / 120 120 / 120 Output: Urine Amount (Catheter) 1500 / 1500 1400 / 1400 Condom 1500 / 1500 1400 / 1400 Other: Date of Last Bowel Movement 11/15/17 11/15/17 # Bowel Movements 0 # Incontinent Bowel Movements 3 Result Diagrams: 11/16/17 05:30 11/16/17 05:30 Other Results: Microbiology 11/13/17 12:54 Sputum - Endotracheal Gram Stain - Final 11/13/17 12:54 Sputum - Endotracheal Sputum Culture - Final 11/11/17 11:55 Blood - Peripheral Aerobic Blood Culture - Preliminary No growth in 4 days 11/11/17 11:55 Blood - Peripheral Anaerobic Blood Culture - Preliminary No growth in 4 days 11/11/17 11:50 Blood - Peripheral Aerobic Blood Culture - Preliminary No growth in 4 days 11/11/17 11:50 Blood - Peripheral Anaerobic Blood Culture - Preliminary No growth in 4 days 11/09/17 10:20 Blood - Peripheral Aerobic Blood Culture - Final No growth in 5 days 11/09/17 10:20 Blood - Peripheral Anaerobic Blood Culture - Final QNS - See aerobic report. 11/08/17 10:49 Blood - Peripheral Aerobic Blood Culture - Final No growth in 5 days 11/08/17 10:49 Blood - Peripheral Anaerobic Blood Culture - Final No growth in 5 days 11/07/17 06:20 Blood - Peripheral Aerobic Blood Culture - Final Staphylococcus aureus 11/07/17 06:20 Blood - Peripheral Anaerobic Blood Culture - Final No growth in 5 days 11/06/17 05:39 Blood - Peripheral Aerobic Blood Culture - Final Staphylococcus aureus 11/06/17 05:39 Blood - Peripheral Anaerobic Blood Culture - Final No growth in 5 days 11/05/17 04:22 Blood - Peripheral Aerobic Blood Culture - Final Staphylococcus aureus 11/05/17 04:22 Blood - Peripheral Anaerobic Blood Culture - Final No growth in 5 days 11/06/17 08:55 Sputum - Endotracheal Gram Stain - Final 11/06/17 08:55 Sputum - Endotracheal Sputum Culture - Final Staphylococcus aureus 11/05/17 11:40 Sputum - Endotracheal Gram Stain - Final 11/05/17 11:40 Sputum - Endotracheal Sputum Culture - Final Staphylococcus aureus 11/05/17 01:34 Catheterized Urine Urine Culture - Final No growth in 48 hours 11/04/17 06:45 Blood - Peripheral Aerobic Blood Culture - Final Staphylococcus aureus 11/04/17 06:45 Blood - Peripheral Anaerobic Blood Culture - Final Staphylococcus aureus 11/04/17 06:40 Blood - Peripheral Aerobic Blood Culture - Final Staphylococcus aureus 11/04/17 06:40 Blood - Peripheral Anaerobic Blood Culture - Final Staphylococcus aureus Imaging: ITS Impressions Head CTA 11/04/17 05:39 CONCLUSION: 1. Patient is left vertebral dominant. 2. Otherwise, intracranial vessels are all patent without embolic or aneurysmal disease. Neck CTA 11/04/17 05:39 CONCLUSION: 1. Patient is left vertebral dominant. 2. Otherwise, arch and cervical vessels are patent throughout. Head CT 11/12/17 09:37 CONCLUSION: 1. Moderate-sized area of edema involving the left posterior parietal cortex unchanged from previous of 11/06/2017. Findings are most consistent with cortical infarct. There is no evidence of hemorrhage within this. . Head MRI 11/13/17 00:00 CONCLUSION: 1. Evolving bilateral areas of infarction. There is mild mass effect on the left lateral ventricle particularly the posterior horn which is effaced. Chest X-Ray 11/16/17 06:00 CONCLUSION: Increasing indistinctness and engorgement of the central bronchopulmonary markings suggestive of pulmonary edema. Objective Remarks: GENERAL: 31-year-old male currently resting in bed on nasal cannula in no acute distress HEENT: Normocephalic. Atraumatic. Pupils 4 mm, equal, round, reactive, conjugate. NECK: Trachea is midline. No JVD or thyromegaly CHEST: Equal chest rise. Few scattered anterior crackles throughout. No wheezing CARDIOVASCULAR: S1, S2. No S4. 2/6 murmur right upper sternal border ABDOMEN: Soft, nontender, nondistended. No guarding. Bowel sounds present. MUSCULOSKELETAL: No peripheral edema. Multiple linear scars over the bilateral upper and lower extremities consistent with needle fan. Janeway lesions+ NEUROLOGICAL Musculoskeletal strength on the right is 1/5 in both the upper and lower extremities. Musculoskeletal strength on the left is 4 out of 5. Following commands on the left upper and lower extremity. Assessment and Plan - Assessment and Plan Plan: Neurologic/Psych: Acute 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 Aphasia Subarachnoid hemorrhage IV drug abuse THC use MRI brain 11/13 revealed restricted diffusion in the left insular cortex involving the left frontal parietal region. Restriction effusion right parietal /occipital region. Evolving infarcts with mild mass-effect in left lateral ventricle/effacement of the posterior horn. - MRI brain revealed left posterior MCA CVA also involving the right occipital region and left caudate nucleus likely embolic -CT brain yesterday after seizures did not show any acute changes. MRI brain ordered by Dr. Hatfield - neurosurgery/neurology consultation completed. Dr. Barton no intervention. Dr. Hatfield following - EEG: Abnormal EEG at times with moderate slowing more left compared to the right, likely due to structural lesion such as stroke, but no apparent evidence of any epileptiform features. Some of the slowing may be dueto sedation. Clinical correlation -Continue levetiracetam 1000 mg IV twice daily Acetaminophen 650 mg every 6 hours as needed fever/pain 1 through 10 Urine drug screen positive for fentanyl and salicylates and THC Respiratory: Hypoxemic respiratory failure Prehospital aspiration pneumonitis/MSSA -Required intubation for inability to control airway. Extubated 11/13 Nasal cannula to maintain saturations greater than equal to 92% I incentive spirometry while awake Albuterol/ipratropium aerosols every 4 hours with albuterol aerosols every 2 hours as needed for dyspnea Chest x-ray 11/14 revealed pulmonary edema. Recheck in a.m. 11/16. Cardiovascular: Mixed septic/cardiogenic shock Severe aortic regurgitation Large aortic valve vegetation 1x1.7cm Mild aortic stenosis from vegetation 2D echocardiogram 11/04 revealed EF 60-65%. Severe AR. Vegetation 1.01.7 cm Currently not requiring vasopressors and/or antihypertensives At present he is not a candidate for valve replacement surgery, per CTSDr. Oralia 11/06 note Currently on normal saline at 70 cc an hour. Discontinue. Renal/: Acute kidney injury -Continue Fontaine catheter - monitor uop -- Strict I/Os Repeat BMP in a.m. 11/17 FEN/GI: Lactic Acidosis -resolved Acute protein calorie malnutrition- severe, temporal muscle wasting Hypoalbuminemia Hypopotassemia Clear liquid diet. Speech therapy evaluate and treat for swallowing/effusion Pantoprazole for GI prophylaxis Docusate sodium/senna 1 tablet twice daily for bowel regimen. 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 Complete levofloxacin stop date 11/11 Blood cultures positive for MSSA 11/07, and . Subsequent 11/13, 11/11/11/09 and 11/08 no growth to date. Sputum positive for MSSA, 11/05 At present he is not a candidate for valve replacement surgery, seen by Dr. Barton 11/06 Endocrine: Low TSH 0.13 -- SSI aspart low protocol every 6 hours Free T4 was normal at 5.3. Recheck TSH in 2-4 weeks Prophylaxis: GI Prophylaxis Pantoprazole DVT Prophylaxis -- SCDs holding pharmacologic DVT prophylaxis due to risks of hemorrhagic conversion, until cleared by neurology and neurosurgery Lines: Right subclavian CVL fontaine Level 2 follow-up
[2017-11-16] MEDS: levETIRAcetam 500 MG Tablet PO SCH ×2 (09:50→20:13)
[2017-11-16] MEDS: Pantoprazole Inj 40 MG Vial IV.PUSH SCH (09:54)
--- NOTE | 2017-11-16 12:57 | P.PNID ---
Subjective Remarks: ID coverage: Patient is a 31-year-old male, who initially presented to [facility] emergency room October 30 complaining of 3 day history of headache. He gave a history of IV drug use. He was not febrile during that visit. WBC was normal. He underwent CT of the brain which was negative. Also underwent MRI of the thoracic and lumbar spine which were both negative for any infection. 2 blood cultures were done at that time and he was discharged. He came back to the hospital after his friends found him on the kitchen floor. He was reportedly unable to move his right side. And he was also noted to have some difficulty speaking. He remains afebrile. His white count is elevated. His CT of the head is now showing some findings in the right parietal area, as well as faint subarachnoid hemorrhage. CTA of the neck is negative. He has evidence of right-sided weakness, as well as expressive aphasia. The 2 blood cultures done on his ED visit is now reported as growing MSSA. Infectious disease consultation has been requested to evaluate the patient. Notes reviewed Afebrile. On room air. Following commands. Not moving the right side. Trying to communicate but not getting words out. CT head no change in edema Blood culture from 11/09 and 11/11 has no growth. BC (+) 11/04-11/07 Sputum with MSSA 11/05 WBC normal Not a surgical candidate per CTS evaluation. Echocardiogram: The left ventricular systolic function is normal with an estimated ejection fraction in the range of 60-65%. Trace mitral valve regurgitation. Large vegetation noted on the aortic valve (1.7cm x 1.0cm) Mild obstruction of the aortic valve due to vegetation with a mean gradient of 11 mmHg Severe eccentric aortic regurgitation There is trace tricuspid valve regurgitation. Antibiotics: Cefazolin Rifampin Lines: [facility] central line - 11/05 Past Medical History: Diabetes Hypertension IVDU Allergies/Adverse Reactions: Allergies No Known Allergies Allergy (Unverified 10/30/17 21:54) Objective Vital Signs 11/15/17 14:00 11/15/17 16:00 11/15/17 16:16 Temperature 98.6 F Pulse Rate 98 H 104 H 89 Respiratory Rate 28 H 28 H Blood Pressure 142/63 H Pulse Oximetry 96 11/15/17 16:29 11/15/17 18:00 11/15/17 20:00 Temperature 99.9 F H Pulse Rate 103 H 100 H Respiratory Rate 21 Blood Pressure 145/63 H Pulse Oximetry 96 94 L 11/15/17 20:16 11/15/17 22:00 11/15/17 23:59 Temperature Pulse Rate 97 H 97 H 92 H Respiratory Rate 19 19 Blood Pressure Pulse Oximetry 94 L 11/16/17 00:00 11/16/17 02:00 11/16/17 03:52 Temperature 99 F Pulse Rate 102 H 100 H 100 H Respiratory Rate 24 20 Blood Pressure 151/65 H Pulse Oximetry 94 L 11/16/17 04:00 11/16/17 06:00 11/16/17 08:12 Temperature 99 F Pulse Rate 103 H 110 H 94 H Respiratory Rate 25 H 22 Blood Pressure 148/67 H Pulse Oximetry 95 11/16/17 08:13 11/16/17 12:46 Temperature Pulse Rate 97 H Respiratory Rate 25 H Blood Pressure Pulse Oximetry 98 Intake & Output 11/15/17 11/16/17 11/16/17 18:59 06:59 18:59 Intake Total 1240 / 1240 220 / 220 1000 / 1000 Output Total 1500 / 1500 1400 / 1400 Balance -260 / -260 -1180 / -1180 1000 / 1000 Weight 76.7 kg Intake: IV 1120 / 1120 100 / 100 1000 / 1000 NS Inj 1,000 ML @ 70 mls/hr IV. 1000 / 1000 1000 / 1000 CONT .[id number] [facility] Rx#:[id number] Ancef Inj 2,000 MG In NS Inj 120 / 120 100 / 100 100 ML @ 240 mls/hr IV.SIG Q8H [facility] Rx#:[id number] Oral 120 / 120 120 / 120 Output: Urine Amount (Catheter) 1500 / 1500 1400 / 1400 Condom 1500 / 1500 1400 / 1400 Other: Date of Last Bowel Movement 11/15/17 11/15/17 # Bowel Movements 0 # Incontinent Bowel Movements 3 11/11/17 11:55 Blood - Peripheral Aerobic Blood Culture - Final No growth in 5 days 11/11/17 11:55 Blood - Peripheral Anaerobic Blood Culture - Final No growth in 5 days 11/11/17 11:50 Blood - Peripheral Aerobic Blood Culture - Final No growth in 5 days 11/11/17 11:50 Blood - Peripheral Anaerobic Blood Culture - Final No growth in 5 days 11/13/17 12:54 Sputum - Endotracheal Gram Stain - Final 11/13/17 12:54 Sputum - Endotracheal Sputum Culture - Final 11/09/17 10:20 Blood - Peripheral Aerobic Blood Culture - Final No growth in 5 days 11/09/17 10:20 Blood - Peripheral Anaerobic Blood Culture - Final QNS - See aerobic report. 11/08/17 10:49 Blood - Peripheral Aerobic Blood Culture - Final No growth in 5 days 11/08/17 10:49 Blood - Peripheral Anaerobic Blood Culture - Final No growth in 5 days Lab - Hematology Results 11/15/17 11/16/17 05:05 05:30 WBC 9.7 10.0 RBC 3.07 L 3.23 L Hgb 8.9 L 9.2 L Hct 26.1 L 27.5 L MCV 84.9 85.1 MCH 28.8 28.4 MCHC 34.0 33.4 RDW 13.1 13.3 Plt Count 251 299 MPV 8.9 8.9 Neut % (Auto) 76.9 H 76.2 H Lymph % (Auto) 16.2 16.8 [place] % (Auto) 4.9 4.8 Eos % (Auto) 1.2 1.3 Baso % (Auto) 0.8 0.9 Neut # (Auto) 7.5 7.6 Lymph # (Auto) 1.6 1.7 [place] # (Auto) 0.5 0.5 Eos # (Auto) 0.1 0.1 Baso # (Auto) 0.1 0.1 WBC Differential . . Differential Comment Auto diff final Auto diff final Lab - Chemistry Results 11/15/17 11/15/17 11/16/17 00:09 05:05 00:22 Sodium 142 Potassium 3.5 Chloride 111 H Carbon Dioxide 21.2 Anion Gap 10 BUN 12 Creatinine 0.78 Estimated GFR Greater than 89 POC Glucose 107 87 Random Glucose 91 Calcium 7.7 L Phosphorus 3.1 Magnesium 2.2 Total Bilirubin 1.0 AST 28 ALT 12 Alkaline Phosphatase 55 Total Protein 8.3 H Albumin 1.9 L 11/16/17 05:30 Sodium 141 Potassium 3.4 L Chloride 111 H Carbon Dioxide 19.8 L Anion Gap 10 BUN 12 Creatinine 0.78 Estimated GFR Greater than 89 POC Glucose Random Glucose 91 Calcium 7.9 L Phosphorus Magnesium Total Bilirubin AST ALT Alkaline Phosphatase Total Protein Albumin Imaging: ITS Impressions Head CTA 11/04/17 05:39 CONCLUSION: 1. Patient is left vertebral dominant. 2. Otherwise, intracranial vessels are all patent without embolic or aneurysmal disease. Neck CTA 11/04/17 05:39 CONCLUSION: 1. Patient is left vertebral dominant. 2. Otherwise, arch and cervical vessels are patent throughout. Head CT 11/12/17 09:37 CONCLUSION: 1. Moderate-sized area of edema involving the left posterior parietal cortex unchanged from previous of 11/06/2017. Findings are most consistent with cortical infarct. There is no evidence of hemorrhage within this. . Head MRI 11/13/17 00:00 CONCLUSION: 1. Evolving bilateral areas of infarction. There is mild mass effect on the left lateral ventricle particularly the posterior horn which is effaced. Chest X-Ray 11/16/17 06:00 CONCLUSION: Increasing indistinctness and engorgement of the central bronchopulmonary markings suggestive of pulmonary edema. Physical Exam: GENERAL: Awake, following commands. SKIN: Warm and dry. No generalized rash. HEAD: Atraumatic. Normocephalic. No temporal wasting, or tenderness. EYES: [place] conjunctiva. Has petechia on L conjunctiva. Pupils equal, round and reactive to light. No scleral icterus. OROPHARYNX: Moist mucosa. NECK: Trachea midline. Supple and not tender, no meningeal signs CARDIOVASCULAR: Regular rate and rhythm. Systolic murmur at the left sternal border. RESPIRATORY: Bilateral coarse breath sounds ABDOMEN: Soft, nondistended. Bowel sounds present and normoactive. No reaction to palpation. EXTREMITIES: No clubbing, cyanosis. Swelling of the right upper and lower extremities. No joint effusion. NEUROLOGICAL: Not moving the right upper and lower extremity. PSYCHIATRIC: Unable to assess LINE: No evidence of infection Assessment and Plan - Plan Impression MSSA sepsis L sided endocarditis AV, due to IVDU - has large vegetation AV, causing mild obstruction CVA with R sided weakness, aphasia, due to embolic event from his IE Persistent fevers. Temp lower. - nothing new on C/S - ?drug fever IVDU Respiratory failure, has bilateral infiltrates MSSA PNA, S/P Rx Recommendation Follow blood C/S to document clearing Continue Ancef Continue Rifampin for synergy Follow temps Monitor progress Per CTS not surgical candidate D/W HAN
[2017-11-16] MEDS: Chlorhexidine 0.12% Oral Kit 15 ML UDC OROPHARYNG SCH (22:53)
[2017-11-16] MEDS: Senna/Docusate Sodium 8.6/50 MG Tablet PO SCH (22:53)
[2017-11-16] MEDS: Hypromellose 0.3% Opth Gel 10 GM Bottle EACH EYE SCH (22:54)
[2017-11-17] MEDS: Oral Hygiene Kit OROPHARYNG SCH ×4 (01:13→16:51)
[2017-11-17] MEDS: Insulin NovoLOG Aspart Correctional Sugar Inj SQ SCH ×4 (01:13→18:22)
--- NOTE | 2017-11-17 07:53 | P.PN ---
Subjective Interval history: Pt seen and examined for f/u of IVDU resulting in AV endocarditis, septic emboli , and CVA. Afebrile, BPs and HR elevated. Pt resting in bed in NAD. No acute events overnight per RN. Pt tends to be impulsive. Pulled out condom cath today. Lower extremities in soft restraints. Following simple commands but still with significant aphasia and R hemiparesis. He has had no diarrhea or vomiting. He denies pain. Physical Exam Vital signs: Vital Signs 11/16/17 08:00 11/16/17 08:12 11/16/17 08:13 Temperature 98.4 F Pulse Rate 100 H 94 H Respiratory Rate 24 22 Blood Pressure 148/69 H Pulse Oximetry 94 L 98 11/16/17 10:00 11/16/17 12:00 11/16/17 12:46 Temperature 98.4 F Pulse Rate 97 H 102 H 97 H Respiratory Rate 25 H Blood Pressure 155/67 H Pulse Oximetry 95 11/16/17 16:00 11/16/17 16:07 11/16/17 17:03 Temperature 98 F Pulse Rate 94 H 99 H 94 H Respiratory Rate 20 18 Blood Pressure 152/65 H Pulse Oximetry 94 L 11/16/17 19:50 11/16/17 20:00 11/16/17 21:03 Temperature 98.3 F Pulse Rate 103 H 98 H 102 H Respiratory Rate 24 26 H Blood Pressure 146/67 H Pulse Oximetry 98 97 11/16/17 23:16 11/17/17 00:00 11/17/17 01:00 Temperature 98.5 F Pulse Rate 92 H 93 H 106 H Respiratory Rate 24 22 Blood Pressure 142/66 H Pulse Oximetry 100 11/17/17 03:15 11/17/17 04:00 11/17/17 05:00 Temperature 98.7 F Pulse Rate 92 H 99 H 99 H Respiratory Rate 21 22 Blood Pressure 168/71 H Pulse Oximetry 95 Intake & Output 11/16/17 11/17/17 11/17/17 18:59 06:59 18:59 Intake Total 1890 / 1890 480 / 480 Output Total 1999 / 1999 1800 / 1800 Balance -110 / -110 -1320 / -1320 Weight 78.4 kg Intake: IV 1240 / 1240 NS Inj 1,000 ML @ 70 mls/hr IV. 1000 / 1000 CONT .[id number] [facility] Rx#:[id number] Ancef Inj 2,000 MG In NS Inj 240 / 240 100 ML @ 240 mls/hr IV.SIG Q8H [facility] Rx#:[id number] Oral 650 / 650 480 / 480 Output: Urine Amount (Catheter) 1999 1800 Condom 1999 Other: Date of Last Bowel Movement 11/15/17 11/16/17 # Bowel Movements 0 Narrative: GENERAL: WN, WD male resting in bed in NAD. SKIN: Warm and dry. HEENT: AT/NC. Pupils equal and round. Pupils about 5 mm bilaterally and minimally reactive. HEART: Tachycardic with 2/6 CRISTINA. LUNGS: CTAB without wheezes or crackles. ABDOMEN: +BS, soft, NT, ND. EXTREMITIES: No LE edema. 2+ pedal pulses. NEURO: Awake and alert. Expressive aphasia. R hemiparesis. Moving LUE, does not move LLE but per RN he is able to. - Urinary Catheter Management Indwelling Urethral Catheter Cath placed during this visit: no Reason for continuing: Not indwelling catheter Condom Cath placed during this visit: yes Reason for continuing: Not indwelling catheter Insertion date: 11/12/17 Straight Cath placed during this visit: no Reason for continuing: Not indwelling catheter Results - Labs CBC & Chem 7: 11/16/17 05:30 11/16/17 05:30 Laboratory Results - last 24 hr 11/17/17 11/17/17 00:10 06:01 POC Glucose 86 97 Microbiology 11/11/17 11:55 Blood - Peripheral Aerobic Blood Culture - Final No growth in 5 days 11/11/17 11:55 Blood - Peripheral Anaerobic Blood Culture - Final No growth in 5 days 11/11/17 11:50 Blood - Peripheral Aerobic Blood Culture - Final No growth in 5 days 11/11/17 11:50 Blood - Peripheral Anaerobic Blood Culture - Final No growth in 5 days Assessment and Plan - Assessment (1) Endocarditis Code(s): I38 - Endocarditis, valve unspecified Status: Acute (2) Sepsis Code(s): A41.9 - Sepsis, unspecified organism Status: Acute (3) Stroke, embolic Code(s): I63.9 - Cerebral infarction, unspecified Status: Acute (4) IV drug abuse Code(s): F19.10 - Other psychoactive substance abuse, uncomplicated Status: Acute (5) MSSA bacteremia Code(s): R78.81 - Bacteremia Status: Acute - Plan 31 year old male with history of IVDU admitted 11/04 after he was found on the floor of his apartment altered with right-sided hemiparesis. The patient had originally presented to the ER on 10/30 with fevers and back pain. At that visit , MRI of the back was negative and he was discharged home. Blood cultures ended up returning positive for MSSA in 4 out of the 4 bottles. The patient was attempted to be contacted but unfortunately he could not be reached. Upon presentation back to the ED, CT brain demonstrated a small amount of subarachnoid blood and small areas of decreased density suggestive of acute infarcts, and MRI confirmed multiple small areas of infarct. He was admitted to the [facility] where bedside echocardiogram revealed a large mobile mass ont he aortic valve with associated severe AV regurgitation. He was also found to have an INR of 9.8 with a concern that the IV drugs he was using were contaminated. He was transfused 4 units of FFP and FEIBA with normalization of his INR. He was intubated on 11/05 for acute respiratory failure, self-extubated 11/07 with subsequent reintubation later that day, and has since been extubated on 11/13. Infectious MSSA bacteremia [place] AV endocarditis Septic emboli Pneumonia Lactic acidosis - resolved - Blood cultures from 10/30, 11/04, 11/05, 11/06, and 11/07 + for MSSA - Repeat blood culture from 11/08, 11/09, and 11/11 NGTD - WBC normal - 2D echo demonstrating EF of 60-65% and a 1.7 x 1.0 cm large vegetation on the aortic valve with severe AV regurgitation - ID following - On cefazolin and Rifampin Respiratory Acute respiratory failure - resolved Aspiration PNA MSSA sputum - Extubated since 11/13 - CXR 11/16 w/ findings suggestive of pulmonary edema - Supplemental O2 to maintain sats >92% - Completed course of Levaquin for aspiration - Bronchodilators Cardiovascular Cardiogenic shock Severe AV regurgitation Hypertension - BPs running high - start amlodipine 5 mg - CT surgery evaluated 11/06; not a candidate for valve replacement Renal MEDARDO - resolved Hypokalemia - Monitor UOP - Replete potassium 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 Subarachnoid bleed - resolved IVDU Seizures - Imaging: * Head CT 11/04 with new infarct R parietal lobe, faint subarachnoid hemorrhage over high parietal convex bilaterally * Head and neck CTA negative * MRI 11/04 with multiple infarcts suggesting embolic occlusion * Repeat head CT 11/05 with new large area of edema in L MCA territory with no significant mass effect or midline shift, cerebellar areas of edema, and apparent resolution of SAH * Repeat head CT 11/06 and 11/12 with stable edema, no new hemorrhage or infarct * MRI brain 11/13 showing evolving bilateral areas of infarction with mild mass effect on L lateral ventricle * EEG 11/04 w/ moderate diffuse encephalopathy but no seizure activity * Repeat EEG 11/12 abnormal but no apparent evidence of epileptiform features - Neurosurgery consulted, no surgical intervention at this time - Neurology following, ready for rehab neuro-mcdaniels - Continue Keppra BID Heme Elevated INR at 9.8 - resolved Salicylate elevation Anemia - Elevated INR likely secondary to IV drug contamination - Corrected after 4 units FFP and FEIBA - Anemia likely secondary to acute illness - H&H stable - Hemodynamically stable - No signs of acute bleeding DVT prophylaxis: holding pharmacologic DVT prophylaxis due to risks of hemorrhagic conversion GI prophylaxis: PPI Disposition: Transfer to med/surg Code Status: Full Discussed Condition With: RN (2) Sepsis Qualifiers: Sepsis type: sepsis due to unspecified organism Qualified Code(s): A41.9 - Sepsis, unspecified organism
[2017-11-17] MEDS: Chlorhexidine 0.12% Oral Kit 15 ML UDC OROPHARYNG SCH ×3 (09:36→20:02)
[2017-11-17] MEDS: Senna/Docusate Sodium 8.6/50 MG Tablet PO SCH ×3 (09:36→20:03)
[2017-11-17] MEDS: Midazolam 50 MG/50 ML Inj 50 MG/50 ML BAG IV.CONT PRN (09:41)
[2017-11-17] MEDS: levETIRAcetam 500 MG Tablet PO SCH ×2 (09:53→20:02)
[2017-11-17] MEDS: Pantoprazole Inj 40 MG Vial IV.PUSH SCH (09:54)
[2017-11-17] MEDS: amLODIPine 5 MG Tablet PO SCH (09:57)
--- NOTE | 2017-11-17 16:24 | CT ---
EXAM DATE: 11/17/2017 4:10 PM EDT AGE/SEX: 31 years / Male INDICATIONS: Trauma, fall from bed. CLINICAL DATA: This is the patient's initial encounter. Patient reports that signs and symptoms have been present for 1 day and indicates a pain score of Nonresponsive. MEDICAL/SURGICAL HISTORY: Diabetes. Hypertension. None. RADIATION DOSE: 37.22 CTDI (mGy) COMPARISON: [facility] [place], CT HEAD W/O CONTRAST, 11/12/2017. . TECHNIQUE: CT of the head without contrast. Using automated exposure control and adjustment of the mA and/or kV according to patient size, radiation dose was kept as low as reasonably achievable to ob tain optimal diagnostic quality images. DICOM format image data is available electronically for revi ew and comparison. FINDINGS: There is an evolving infarct in the left MCA distribution. There is also a smaller evolving infarct i n the right parietal lobe. There is some localized edema and sulcal effacement. No significant midlin e shift. No hydrocephalus. No abnormal extra-axial fluid. Probable small areas of petechial hemorrhag e associated with the left MCA infarct. CONCLUSION: 1. Evolving left MCA territory and right parietal lobe infarcts as above with localized mass effect and probable petechial hemorrhage. No significant midline shift. . Electronically signed by: Hector Palacios MD 11/17/2017 4:22 PM EDT
--- NOTE | 2017-11-17 16:43 | P.EN ---
Notified by RN that the patient somehow raised his bed to the highest position and subsequently fell out of the bed. She heard a noise in the room and when she ran in she found him on the floor, and the bed was at max elevation. He had fallen off the left side of the bed and he was found on his right side. He was in one LLE soft restraint. His body appeared to have twisted. On initial nursing assessment, no gross abnormalities were seen but the patient was noted to be somewhat more "out of it" than previously in the day. A stat head CT was ordered while I was en route to see the patient. On evaluation, the patient is seen lying in bed just arrived back from radiology. He is able to follow simple commands for me such as hand gripping on the left and moving his LLE when asked. He is still with right-sided hemiparesis but seems to be withdrawing the RLE when his knee is palpated. Continues to have expressive aphasia and does not respond appropriately when asked if he is in any pain therefore assessment somewhat challenging. AFVSS GEN: WN WD male laying in bed in NAD SKIN: Warm and dry HEENT: There is an approximately 3x3 cm hematoma over R zygomatic arch. No abrasions, open wounds, or bleeding of the scalp or face. Pupils 5 mm bilaterally, equal, round, and reactive to light. Tracks my fingers. EOMI. No tongue lacerations NECK: No gross bony cervical abnormalities. No crepitus or step-off. Pt's face or heart rate doesn't change with palpation of his cervical spine HEART: Tachycardic with 2/6 CRISTINA. LUNGS: CTAB ABDOMEN: Soft, NT, ND EXTREMITIES: R hemiparesis. Does not pot operator with his R hand but will pot operator with his left. There is an old abrasion inferior to his R anterolateral knee around the tibial plateau but now there seems to be some bruising and swelling in that region. Clavicles are intact and symmetric in appearance with no step-off or crepitus. His R shoulder appears somewhat more puffy than the left but I do not appreciate any gross abnormalities. No bony abnormalities of the remainder of his upper extremities. NEURO: Awake and alert. Does not appear Expressive aphasia. R hemiparesis PLAN: Fall - Post-fall nursing protocol - CT head showing evolving infarct in LMCA distribution with a smaller evolving infarct in the R parietal lobe. There is some localized edema with no significant midline shift. Probably small areas of petechial hemorrhage associated with the left MCA infarct - Obtain XR of R shoulder and R knee - Apply ice PRN to R knee - 4P soft restraints - Fall precautions - Neuro checks - D/W nursing who is updating Dr. Rosado - Will continue to monitor on neuro ICU - Occurrence report complete
--- NOTE | 2017-11-17 17:04 | XR ---
EXAM DATE: 11/17/2017 4:51 PM EDT AGE/SEX: 31 years / Male INDICATIONS: Right knee swelling, unknown trauma. CLINICAL DATA: This is the patient's initial encounter. Patient reports that signs and symptoms have been present for 1 week and indicates a pain score of Nonresponsive. MEDICAL/SURGICAL HISTORY: Diabetes mellitus type II. Hypertension. None. COMPARISON: No prior exams available for comparison. FINDINGS: Bony structures are intact and in normal alignment. Joints are intact without dislocation or signifi cant arthropathy. Osseous density is normal. Soft tissues are unremarkable. No radiopaque foreign bodies seen. CONCLUSION: No acute findings. Electronically signed by: Hector Palacios MD 11/17/2017 5:02 PM EDT
--- NOTE | 2017-11-17 17:05 | XR ---
EXAM DATE: 11/17/2017 4:52 PM EDT AGE/SEX: 31 years / Male INDICATIONS: Right shoulder swelling, unknown trauma. CLINICAL DATA: This is the patient's initial encounter. Patient reports that signs and symptoms have been present for 1 week and indicates a pain score of Nonresponsive. MEDICAL/SURGICAL HISTORY: Hypertension. Diabetes mellitus type II. None. COMPARISON: No prior exams available for comparison. FINDINGS: No acute fracture or dislocation. No bony destructive changes. Right subclavian catheter present. CONCLUSION: No acute bony abnormalities. Electronically signed by: Hector Palacios MD 11/17/2017 5:03 PM EDT
[2017-11-17] MEDS: Hypromellose 0.3% Opth Gel 10 GM Bottle EACH EYE SCH (20:03)
[2017-11-18] MEDS: Oral Hygiene Kit OROPHARYNG SCH ×5 (00:35→23:12)
[2017-11-18] MEDS: Insulin NovoLOG Aspart Correctional Sugar Inj SQ SCH ×5 (00:35→23:12)
[2017-11-18 06:20] LABS: Hematocrit 28.6 % (39.0-51.0); Hemoglobin 9.9 gm/dL (13.0-17.0); Mean Corpuscular HGB Conc 34.5 % (32.0-36.0); Mean Corpuscular Hemoglobin 29.2 pg (27.0-34.0); Mean Corpuscular Volume 84.5 fL (80.0-100.0); Mean Platelet Volume 8.4 fL (7.0-11.0); Platelet Count 353 th/mm3 (150-450); Red Blood Count 3.39 mil/mm3 (4.50-5.90); Red Cell Distribution Width 13.4 % (11.6-17.2); White Blood Count 9.5 th/mm3 (4.0-11.0)
[2017-11-18 07:05] LABS: Anion Gap 7 meq/L (5-15); Blood Urea Nitrogen 14 mg/dL (7-18); Calcium 8.2 mg/dL (8.5-10.1); Carbon Dioxide 24.1 meq/L (21.0-32.0); Chloride 107 meq/L (98-107); Glomerular Filtration Rate Greater Than 89 mL/min (>89); Glucose,Random 96 mg/dL (74-106); Sodium 138 meq/L (136-145)
[2017-11-18 07:08] LABS: Potassium 3.9 meq/L (3.5-5.1)
--- NOTE | 2017-11-18 08:53 | P.PNNEU ---
Subjective Subjective Comments: fell oob yest ct no change Active Medications: Active Medications Acetaminophen (Tylenol) 650 mg PO Q6H PRN PRN Reason: TEMPERATURE > 101 F Last Admin: 11/12/17 01:19 Dose: 650 mg Albuterol (Duoneb Neb (John)) 1 ampul NEB Q4HR NEB [facility] Last Admin: 11/18/17 08:33 Dose: 1 ampul Albuterol (Albuterol Neb (Prn)) 2.5 mg NEB Q2HR NEB PRN PRN Reason: DYSPNEA Amlodipine Besylate (Norvasc) 5 mg PO DAILY [facility] Last Admin: 11/17/17 09:57 Dose: 5 mg Artificial Tears (Genteal Severe Dry Eye Relief 0.3% Opth Gel) 1 drops EACH EYE HS [facility] Last Admin: 11/17/17 20:03 Dose: 1 drops Chlorhexidine Gluconate (Peridex 0.12% Oral Kit) 15 ml OROPHARYNG BID@0800, 2000 [facility] Last Admin: 11/17/17 20:02 Dose: Not Given Clonidine HCl (Catapres) 0.1 mg PO Q6H PRN PRN Reason: SBP>160, DBP>90 Dextrose (D50w Vial) 50 ml IV.PUSH UNSCH PRN PRN Reason: PER HYPOGLYCEMIA PROTOCOL Flumazenil (Romazecon Inj) 0.2 mg IV.PUSH Q1M PRN PRN Reason: OVERSEDATION Glucagon (Glucagon Inj) 1 mg OTHER PRN PRN PRN Reason: for Hypoglycemia Protocol Hyoscyamine (Levsin Liq) 0.125 mg SL Q4H PRN PRN Reason: SECRETIONS Cefazolin Sodium 2,000 mg/ (Sodium Chloride) 120 mls @ 240 mls/hr IV.SIG Q8H [facility] Last Infusion: 11/18/17 07:48 Dose: Infused Magnesium Sulfate Inj 4 gm/ (Sodium Chloride) 100 mls @ 50 mls/hr IV.SIG UNSCH PRN PRN Reason: For Magnesium 0.9 - 1.1 mg/dL Magnesium Sulfate Inj 2 gm/ (Sodium Chloride) 100 mls @ 50 mls/hr IV.SIG UNSCH PRN PRN Reason: For Magnesium 1.2 - 1.6 mg/dL Potassium Chloride (Kcl 40 Meq Premix Inj) 40 meq in 100 mls @ 25 mls/hr IV.SIG Q2H PRN PRN Reason: For Potassium 2.8 - 3.2 mEq/L Potassium Chloride (Kcl 20 Meq Premix Inj) 20 meq in 100 mls @ 50 mls/hr IV.SIG Q2H PRN PRN Reason: For Potassium 3.3 - 3.5 mEq/L Last Infusion: 11/05/17 07:00 Dose: Infused Potassium Chloride (Kcl 40 Meq Premix Inj) 40 meq in 100 mls @ 25 mls/hr IV.SIG UNSCH PRN PRN Reason: For Potassium 3.3 - 3.5 mEq/L Last Infusion: 11/06/17 02:06 Dose: Infused Potassium Chloride (Kcl 20 Meq Premix Inj) 20 meq in 100 mls @ 50 mls/hr IV.SIG Q2H PRN PRN Reason: For Potassium 2.8 - 3.2 mEq/L Last Infusion: 11/05/17 07:00 Dose: Infused Potassium Phosphate 30 mmol/ (Sodium Chloride) 260 mls @ 42 mls/hr IV.SIG UNSCH PRN PRN Reason: SEE LABEL COMMENTS Sodium Phosphate 30 mmol/ (Sodium Chloride) 260 mls @ 42 mls/hr IV.SIG UNSCH PRN PRN Reason: For Phosphorus < 2.5 mg/dL Insulin Aspart (Novolog Insulin Correctional Sugar Inj) 0 unit SQ Q6HR JOHN; Protocol Last Admin: 11/18/17 07:48 Dose: Not Given Labetalol HCl (Trandate Inj) 10 mg IV.PUSH Q1H PRN PRN Reason: SYS BP GREATER THAN 160 MMHG Levetiracetam (Keppra) 1,000 mg PO BID [facility] Last Admin: 11/17/17 20:02 Dose: 1,000 mg Magnesium Oxide (Mag-Ox) 800 mg PO UNSCH PRN PRN Reason: For Magnesium 1.2 - 1.6 mg/dL Nitroglycerin (Nitro-Bid 2% Oint) 1 inch TOPICAL Q6HR PRN PRN Reason: SBP>160, DBP>90 Ondansetron HCl (Zofran Odt) 4 mg PO Q6H PRN PRN Reason: NAUSEA OR VOMITING Pantoprazole Sodium (Protonix Inj) 40 mg IV.PUSH DAILY JOHN Last Admin: 11/17/17 09:54 Dose: 40 mg Potassium Bicarb/Potassium Chloride (K-Lyte Cl Eff) 50 meq PO ONCE JOHN Last Admin: 11/04/17 21:31 Dose: 50 meq Potassium Bicarb/Potassium Chloride (K-Lyte Cl Eff) 50 meq PO UNSCH PRN PRN Reason: For Potassium 3.3 - 3.5 mEq/L Potassium Phosphate (K-Phos Original) 2,000 mg PO UNSCH PRN PRN Reason: SEE LABEL COMMENTS Potassium Phosphate (K-Phos Original) 2,000 mg PO Q4H PRN PRN Reason: Phosphorus Less Than 2.5 mg/dL Rifampin (Rifampin) 300 mg PO Q12HR [facility] Last Admin: 11/17/17 20:03 Dose: 300 mg Senna/Docusate Sodium (Liv-Colace) 1 tab PO BID [facility] Last Admin: 11/17/17 20:03 Dose: 1 tab Sodium Chloride (Ns Flush) 2 ml IV.FLUSH BID [facility] Last Admin: 11/17/17 20:03 Dose: 2 ml Sodium Chloride (Ns Flush) 2 ml IV.FLUSH PRN PRN PRN Reason: FLUSH AFTER USING IV ACCESS Allergies/Adverse Reactions: Allergies Allergy/AdvReac Type Severity Reaction Status Date / Time No Known Allergies Allergy Unverified 10/30/17 21:54 Physical Exam Vital signs: Vital Signs 11/17/17 09:00 11/17/17 11:20 11/17/17 11:21 Temperature Pulse Rate 94 H 99 H Respiratory Rate 20 Blood Pressure Pulse Oximetry 96 11/17/17 12:00 11/17/17 13:00 11/17/17 15:36 Temperature 98.4 F Pulse Rate 89 94 H 97 H Respiratory Rate 25 H 24 Blood Pressure 133/60 Pulse Oximetry 95 11/17/17 15:46 11/17/17 16:00 11/17/17 16:46 Temperature 97.7 F 98.4 F Pulse Rate 95 H 89 93 H Respiratory Rate 16 25 H 14 Blood Pressure 137/62 133/60 140/61 Pulse Oximetry 95 99 11/17/17 17:00 11/17/17 17:46 11/17/17 18:46 Temperature Pulse Rate 95 H 99 H 98 H Respiratory Rate 22 28 H Blood Pressure 139/65 137/62 Pulse Oximetry 99 95 11/17/17 19:26 11/17/17 20:00 11/17/17 21:00 Temperature 98.3 F Pulse Rate 89 100 H 100 H Respiratory Rate 23 20 Blood Pressure 131/59 L Pulse Oximetry 97 98 11/17/17 22:46 11/17/17 23:45 11/18/17 00:00 Temperature 99 F Pulse Rate 100 H 100 H 99 H Respiratory Rate 20 20 25 H Blood Pressure 148/61 H 147/65 H Pulse Oximetry 98 97 11/18/17 01:00 11/18/17 02:46 11/18/17 03:37 Temperature Pulse Rate 101 H 94 H 102 H Respiratory Rate 24 20 Blood Pressure 128/61 Pulse Oximetry 98 11/18/17 04:00 11/18/17 05:00 11/18/17 06:46 Temperature 98.6 F Pulse Rate 98 H 96 H 96 H Respiratory Rate 26 H 19 Blood Pressure 138/63 139/64 Pulse Oximetry 100 93 L 11/18/17 08:36 Temperature Pulse Rate 98 H Respiratory Rate 15 Blood Pressure Pulse Oximetry 93 L Intake & Output 11/17/17 11/18/17 11/18/17 18:59 06:59 18:59 Intake Total 1840 / 1840 500 / 500 120 / 120 Output Total 800 / 800 800 / 800 Balance 1040 / 1040 -300 / -300 120 / 120 Weight 75.9 kg Intake: IV 1360 / 1360 120 / 120 Ancef Inj 2,000 MG In NS Inj 360 / 360 120 / 120 100 ML @ 240 mls/hr IV.SIG Q8H JOHN Rx#:[id number] Oral 480 / 480 500 / 500 Output: Urine 800 / 800 Stool 0 / 0 Urine Amount (Catheter) 800 / 800 Condom 800 / 800 Other: # Voids 6 # Incontinent Voids 3 Date of Last Bowel Movement 11/16/17 11/17/17 # Bowel Movements 1 Narrative: vocal;izing aphasic moves left well and rle some and minimal rue not follow commands - Urinary Catheter Management Indwelling Urethral Catheter Cath placed during this visit: no Reason for continuing: Not indwelling catheter Condom Cath placed during this visit: yes Reason for continuing: Not indwelling catheter Insertion date: 11/12/17 Straight Cath placed during this visit: no Reason for continuing: Not indwelling catheter Objective Laboratory Results - last 24 hr 11/17/17 11/17/17 11/17/17 10:15 11:18 17:43 WBC RBC Hgb Hct MCV MCH MCHC RDW Plt Count MPV Sodium Potassium 3.6 Chloride Carbon Dioxide Anion Gap BUN Creatinine Estimated GFR POC Glucose 103 81 Random Glucose Calcium 11/18/17 11/18/17 11/18/17 00:14 05:56 06:00 WBC 9.5 RBC 3.39 L Hgb 9.9 L Hct 28.6 L MCV 84.5 MCH 29.2 MCHC 34.5 RDW 13.4 Plt Count 353 MPV 8.4 Sodium Potassium Chloride Carbon Dioxide Anion Gap BUN Creatinine Estimated GFR POC Glucose 87 103 Random Glucose Calcium 11/18/17 06:00 WBC RBC Hgb Hct MCV MCH MCHC RDW Plt Count MPV Sodium 138 Potassium 3.9 Chloride 107 Carbon Dioxide 24.1 Anion Gap 7 BUN 14 Creatinine 0.84 Estimated GFR Greater than 89 POC Glucose Random Glucose 96 Calcium 8.2 L Review/Management - Review/Management Plan: imp mri 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 when off sedatives? -- 11/13/17 no change leg tremor vs sz yest ct stable eeg neg sz on keppra pk to dc sedatives today on keppa 1000 bid 11/15/17 no sz loks well on keppra eeg neg stable neuro left mca cva endocarditis ready for rehab neurowise 11/18/17 dong better oob with sitter in room to prevent falls ? to floor?
[2017-11-18] MEDS: Senna/Docusate Sodium 8.6/50 MG Tablet PO SCH ×2 (08:56→21:15)
[2017-11-18] MEDS: amLODIPine 5 MG Tablet PO SCH (08:56)
[2017-11-18] MEDS: Chlorhexidine 0.12% Oral Kit 15 ML UDC OROPHARYNG SCH ×2 (08:57→21:10)
[2017-11-18] MEDS: levETIRAcetam 500 MG Tablet PO SCH ×2 (08:57→21:15)
[2017-11-18] MEDS: Pantoprazole Inj 40 MG Vial IV.PUSH SCH (08:57)
--- NOTE | 2017-11-18 15:18 | P.PN ---
Subjective Interval history: Pt seen and examined earlier this morning. S/P fall yesterday afternoon. No further events overnight. Pt awake and alert. Answers some simple questions but otherwise with expressive aphasia. Denies pain. Physical Exam Vital signs: Vital Signs 11/17/17 15:36 11/17/17 15:46 11/17/17 16:00 Temperature 97.7 F 98.4 F Pulse Rate 97 H 95 H 89 Respiratory Rate 24 16 25 H Blood Pressure 137/62 133/60 Pulse Oximetry 95 11/17/17 16:46 11/17/17 17:00 11/17/17 17:46 Temperature Pulse Rate 93 H 95 H 99 H Respiratory Rate 14 22 Blood Pressure 140/61 139/65 Pulse Oximetry 99 99 11/17/17 18:46 11/17/17 19:26 11/17/17 20:00 Temperature 98.3 F Pulse Rate 98 H 89 100 H Respiratory Rate 28 H 23 20 Blood Pressure 137/62 131/59 L Pulse Oximetry 95 97 98 11/17/17 21:00 11/17/17 22:46 11/17/17 23:45 Temperature Pulse Rate 100 H 100 H 100 H Respiratory Rate 20 20 Blood Pressure 148/61 H Pulse Oximetry 98 11/18/17 00:00 11/18/17 01:00 11/18/17 02:46 Temperature 99 F Pulse Rate 99 H 101 H 94 H Respiratory Rate 25 H 24 Blood Pressure 147/65 H 128/61 Pulse Oximetry 97 98 11/18/17 03:37 11/18/17 04:00 11/18/17 05:00 Temperature 98.6 F Pulse Rate 102 H 98 H 96 H Respiratory Rate 20 26 H Blood Pressure 138/63 Pulse Oximetry 100 11/18/17 06:46 11/18/17 08:00 11/18/17 08:36 Temperature 98.0 F Pulse Rate 96 H 94 H 98 H Respiratory Rate 19 28 H 15 Blood Pressure 139/64 138/63 Pulse Oximetry 93 L 99 93 L 11/18/17 11:21 Temperature Pulse Rate 97 H Respiratory Rate 15 Blood Pressure Pulse Oximetry Intake & Output 11/17/17 11/18/17 11/18/17 18:59 06:59 18:59 Intake Total 1840 / 1840 500 / 500 240 / 240 Output Total 800 / 800 800 / 800 Balance 1040 / 1040 -300 / -300 240 / 240 Weight 75.9 kg Intake: IV 1360 / 1360 240 / 240 Ancef Inj 2,000 MG In NS Inj 360 / 360 240 / 240 100 ML @ 240 mls/hr IV.SIG Q8H JONATHON Rx#:[id number] Oral 480 / 480 500 / 500 Output: Urine 800 / 800 Stool 0 / 0 Urine Amount (Catheter) 800 / 800 Condom 800 / 800 Other: # Voids 6 # Incontinent Voids 3 Date of Last Bowel Movement 11/16/17 11/17/17 11/16/17 # Bowel Movements 1 Narrative: GENERAL: WN, WD male resting in bed in NAD. SKIN: Warm and dry. HEENT: PERRLA. HEART: Tachycardic with 2/6 CRISTINA. LUNGS: CTAB without wheezes or crackles. ABDOMEN: +BS, soft, NT, ND. EXTREMITIES: No LE edema. 2+ pedal pulses. NEURO: Awake and alert. Expressive aphasia. R hemiparesis. Moving LUE and LLE. Some movement of the RLE. Does not move RUE. Favors the L side but will track to the right. - Urinary Catheter Management Indwelling Urethral Catheter Cath placed during this visit: no Reason for continuing: Not indwelling catheter Condom Cath placed during this visit: yes Reason for continuing: Not indwelling catheter Insertion date: 11/12/17 Straight Cath placed during this visit: no Reason for continuing: Not indwelling catheter Results - Labs CBC & Chem 7: 11/18/17 06:00 11/18/17 06:00 Laboratory Results - last 24 hr 11/17/17 11/18/17 11/18/17 17:43 00:14 05:56 WBC RBC Hgb Hct MCV MCH MCHC RDW Plt Count MPV Sodium Potassium Chloride Carbon Dioxide Anion Gap BUN Creatinine Estimated GFR POC Glucose 81 87 103 Random Glucose Calcium 11/18/17 11/18/17 11/18/17 06:00 06:00 11:53 WBC 9.5 RBC 3.39 L Hgb 9.9 L Hct 28.6 L MCV 84.5 MCH 29.2 MCHC 34.5 RDW 13.4 Plt Count 353 MPV 8.4 Sodium 138 Potassium 3.9 Chloride 107 Carbon Dioxide 24.1 Anion Gap 7 BUN 14 Creatinine 0.84 Estimated GFR Greater than 89 POC Glucose 103 Random Glucose 96 Calcium 8.2 L - Imaging Impressions Knee X-Ray 11/17/17 00:00 CONCLUSION: No acute findings. Shoulder X-Ray 11/17/17 00:00 CONCLUSION: No acute bony abnormalities. Head CT 11/17/17 15:46 CONCLUSION: 1. Evolving left MCA territory and right parietal lobe infarcts as above with localized mass effect and probable petechial hemorrhage. No significant midline shift. . Assessment and Plan - Assessment (1) Endocarditis Code(s): I38 - Endocarditis, valve unspecified Status: Acute (2) Sepsis Code(s): A41.9 - Sepsis, unspecified organism Status: Acute (3) Stroke, embolic Code(s): I63.9 - Cerebral infarction, unspecified Status: Acute (4) IV drug abuse Code(s): F19.10 - Other psychoactive substance abuse, uncomplicated Status: Acute (5) MSSA bacteremia Code(s): R78.81 - Bacteremia Status: Acute - Plan 31 year old male with history of IVDU admitted 11/04 after he was found on the floor of his apartment altered with right-sided hemiparesis. The patient had originally presented to the ER on 10/30 with fevers and back pain. At that visit , MRI of the back was negative and he was discharged home. Blood cultures ended up returning positive for MSSA in 4 out of the 4 bottles. The patient was attempted to be contacted but unfortunately he could not be reached. Upon presentation back to the ED, CT brain demonstrated a small amount of subarachnoid blood and small areas of decreased density suggestive of acute infarcts, and MRI confirmed multiple small areas of infarct. He was admitted to the [facility] where bedside echocardiogram revealed a large mobile mass ont he aortic valve with associated severe AV regurgitation. He was also found to have an INR of 9.8 with a concern that the IV drugs he was using were contaminated. He was transfused 4 units of FFP and FEIBA with normalization of his INR. He was intubated on 11/05 for acute respiratory failure, self-extubated 11/07 with subsequent reintubation later that day, and has since been extubated on 11/13. Infectious MSSA bacteremia [place] AV endocarditis Septic emboli Pneumonia Lactic acidosis - resolved - Blood cultures from 10/30, 11/04, 11/05, 11/06, and 11/07 + for MSSA - Repeat blood culture from 11/08, 11/09, and 11/11 NGTD - WBC normal - 2D echo demonstrating EF of 60-65% and a 1.7 x 1.0 cm large vegetation on the aortic valve with severe AV regurgitation - ID following - On cefazolin and Rifampin Respiratory Acute respiratory failure - resolved Aspiration PNA MSSA sputum - Extubated since 11/13 - CXR 11/16 w/ findings suggestive of pulmonary edema - Supplemental O2 to maintain sats >92% - Completed course of Levaquin for aspiration - Bronchodilators Cardiovascular Cardiogenic shock Severe AV regurgitation Hypertension - BPs running high - started amlodipine 5 mg - CT surgery evaluated 11/06; not a candidate for valve replacement Renal MEDARDO - resolved Hypokalemia - Monitor UOP - Replete potassium 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 Subarachnoid bleed - resolved IVDU Seizures Fall 11/17 - Imaging: * Head CT 11/04 with new infarct R parietal lobe, faint subarachnoid hemorrhage over high parietal convex bilaterally * Head and neck CTA negative * MRI 11/04 with multiple infarcts suggesting embolic occlusion * Repeat head CT 11/05 with new large area of edema in L MCA territory with no significant mass effect or midline shift, cerebellar areas of edema, and apparent resolution of SAH * Repeat head CT 11/06 and 11/12 with stable edema, no new hemorrhage or infarct * MRI brain 11/13 showing evolving bilateral areas of infarction with mild mass effect on L lateral ventricle * EEG 11/04 w/ moderate diffuse encephalopathy but no seizure activity * Repeat EEG 11/12 abnormal but no apparent evidence of epileptiform features * CT head 11/17 after patient fell out of bed showing evolving left MCA territory and R parietal lobe infarcts with localized mass effect and probably petechial hemorrhage. No significant midline shift - Neurosurgery consulted, no surgical intervention at this time - Neurology following, ready for rehab neuro-mcdaniels - Continue Keppra BID - PT recommending rehab - ST recommending pureed, thin liquids Heme Elevated INR at 9.8 - resolved Salicylate elevation Anemia - Elevated INR likely secondary to IV drug contamination - Corrected after 4 units FFP and FEIBA - Anemia likely secondary to acute illness - H&H stable - Hemodynamically stable - No signs of acute bleeding DVT prophylaxis: holding pharmacologic DVT prophylaxis due to risks of hemorrhagic conversion GI prophylaxis: PPI Disposition: Transfer to med/surg (2) Sepsis Qualifiers: Sepsis type: sepsis due to unspecified organism Qualified Code(s): A41.9 - Sepsis, unspecified organism
[2017-11-18] MEDS: Hypromellose 0.3% Opth Gel 10 GM Bottle EACH EYE SCH (21:15)
[2017-11-19] MEDS: Oral Hygiene Kit OROPHARYNG SCH ×3 (03:01→15:05)
[2017-11-19] MEDS: Insulin NovoLOG Aspart Correctional Sugar Inj SQ SCH ×3 (07:57→17:11)
[2017-11-19] MEDS: Pantoprazole Inj 40 MG Vial IV.PUSH SCH (08:43)
[2017-11-19] MEDS: levETIRAcetam 500 MG Tablet PO SCH ×2 (08:43→21:26)
[2017-11-19] MEDS: Senna/Docusate Sodium 8.6/50 MG Tablet PO SCH ×2 (08:43→21:26)
[2017-11-19] MEDS: Chlorhexidine 0.12% Oral Kit 15 ML UDC OROPHARYNG SCH ×2 (08:44→21:27)
[2017-11-19] MEDS: amLODIPine 5 MG Tablet PO SCH (08:44)
--- NOTE | 2017-11-19 10:11 | P.PNID ---
Subjective Remarks: Patient is a 31-year-old male, who initially presented to [place] emergency room October 30 complaining of 3 day history of headache. He gave a history of IV drug use. He was not febrile during that visit. WBC was normal. He underwent CT of the brain which was negative. Also underwent MRI of the thoracic and lumbar spine which were both negative for any infection. 2 blood cultures were done at that time and he was discharged. He came back to the hospital after his friends found him on the kitchen floor. He was reportedly unable to move his right side. And he was also noted to have some difficulty speaking. He remains afebrile. His white count is elevated. His CT of the head is now showing some findings in the right parietal area, as well as faint subarachnoid hemorrhage. CTA of the neck is negative. He has evidence of right-sided weakness, as well as expressive aphasia. The 2 blood cultures done on his ED visit is now reported as growing MSSA. Infectious disease consultation has been requested to evaluate the patient. Notes reviewed Extubated 11/13 and doing well Afebrile. On room air. Following commands. Not moving the right side. Trying to communicate but not getting words out. Last CT head no change in edema Blood culture from 11/09 and 11/11 has no growth. BC (+) 11/04-11/07 Sputum with MSSA 11/05 Not a surgical candidate per CTS evaluation. Echocardiogram: The left ventricular systolic function is normal with an estimated ejection fraction in the range of 60-65%. Trace mitral valve regurgitation. Large vegetation noted on the aortic valve (1.7cm x 1.0cm) Mild obstruction of the aortic valve due to vegetation with a mean gradient of 11 mmHg Severe eccentric aortic regurgitation There is trace tricuspid valve regurgitation. Antibiotics: Cefazolin Rifampin Lines: [facility] central line - 11/05 Past Medical History: Diabetes Hypertension IVDU Allergies/Adverse Reactions: Allergies No Known Allergies Allergy (Unverified 10/30/17 21:54) Objective Vital Signs 11/18/17 10:46 11/18/17 11:21 11/18/17 12:00 Temperature 98.1 F Pulse Rate 92 H 97 H 98 H Respiratory Rate 21 15 24 Blood Pressure 138/64 132/61 Pulse Oximetry 95 96 11/18/17 14:46 11/18/17 15:38 11/18/17 16:00 Temperature 98.3 F Pulse Rate 95 H 97 H 96 H Respiratory Rate 20 15 22 Blood Pressure 135/61 137/63 Pulse Oximetry 95 100 11/18/17 18:46 11/18/17 19:20 11/18/17 20:00 Temperature 98.5 F Pulse Rate 94 H 100 H Respiratory Rate 20 21 Blood Pressure 137/63 132/58 L Pulse Oximetry 94 L 99 11/18/17 20:47 11/18/17 23:08 11/19/17 00:00 Temperature 98.7 F Pulse Rate 102 H 95 H 94 H Respiratory Rate 19 20 20 Blood Pressure 137/63 Pulse Oximetry 11/19/17 03:47 11/19/17 04:00 11/19/17 07:50 Temperature 98.6 F Pulse Rate 95 H 96 H 95 H Respiratory Rate 18 22 15 Blood Pressure 144/71 H Pulse Oximetry 100 Intake & Output 11/18/17 11/19/17 11/19/17 18:59 06:59 18:59 Intake Total 960 / 960 240 / 240 Output Total 800 / 800 950 / 950 Balance 160 / 160 -710 / -710 Weight 74.6 kg Intake: IV 240 / 240 240 / 240 Ancef Inj 2,000 MG In NS Inj 240 / 240 240 / 240 100 ML @ 240 mls/hr IV.SIG Q8H JONATHON Rx#:[id number] Oral 720 / 720 Output: Urine 950 / 950 Urine Amount (Catheter) 800 / 800 Condom 800 / 800 Other: Date of Last Bowel Movement 11/18/17 # Bowel Movements 3 11/11/17 11:55 Blood - Peripheral Aerobic Blood Culture - Final No growth in 5 days 11/11/17 11:55 Blood - Peripheral Anaerobic Blood Culture - Final No growth in 5 days 11/11/17 11:50 Blood - Peripheral Aerobic Blood Culture - Final No growth in 5 days 11/11/17 11:50 Blood - Peripheral Anaerobic Blood Culture - Final No growth in 5 days Lab - Hematology Results 11/18/17 06:00 WBC 9.5 RBC 3.39 L Hgb 9.9 L Hct 28.6 L MCV 84.5 MCH 29.2 MCHC 34.5 RDW 13.4 Plt Count 353 MPV 8.4 Lab - Chemistry Results 11/17/17 11/17/17 11/17/17 10:15 11:18 17:43 Sodium Potassium 3.6 Chloride Carbon Dioxide Anion Gap BUN Creatinine Estimated GFR POC Glucose 103 81 Random Glucose Calcium 11/18/17 11/18/17 11/18/17 00:14 05:56 06:00 Sodium 138 Potassium 3.9 Chloride 107 Carbon Dioxide 24.1 Anion Gap 7 BUN 14 Creatinine 0.84 Estimated GFR Greater than 89 POC Glucose 87 103 Random Glucose 96 Calcium 8.2 L 11/18/17 11/18/17 11/18/17 11:53 18:21 23:08 Sodium Potassium Chloride Carbon Dioxide Anion Gap BUN Creatinine Estimated GFR POC Glucose 103 91 95 Random Glucose Calcium 11/19/17 06:44 Sodium Potassium Chloride Carbon Dioxide Anion Gap BUN Creatinine Estimated GFR POC Glucose 83 Random Glucose Calcium Imaging: ITS Impressions Head CTA 11/04/17 05:39 CONCLUSION: 1. Patient is left vertebral dominant. 2. Otherwise, intracranial vessels are all patent without embolic or aneurysmal disease. Neck CTA 11/04/17 05:39 CONCLUSION: 1. Patient is left vertebral dominant. 2. Otherwise, arch and cervical vessels are patent throughout. Head MRI 11/13/17 00:00 CONCLUSION: 1. Evolving bilateral areas of infarction. There is mild mass effect on the left lateral ventricle particularly the posterior horn which is effaced. Chest X-Ray 11/16/17 06:00 CONCLUSION: Increasing indistinctness and engorgement of the central bronchopulmonary markings suggestive of pulmonary edema. Knee X-Ray 11/17/17 00:00 CONCLUSION: No acute findings. Shoulder X-Ray 11/17/17 00:00 CONCLUSION: No acute bony abnormalities. Head CT 11/17/17 15:46 CONCLUSION: 1. Evolving left MCA territory and right parietal lobe infarcts as above with localized mass effect and probable petechial hemorrhage. No significant midline shift. Physical Exam: GENERAL: Awake, following commands. Has expressive aphasia SKIN: Warm and dry. No generalized rash. HEAD: Atraumatic. Normocephalic. No temporal wasting, or tenderness. EYES: [place] conjunctiva. Has petechia on L conjunctiva. Pupils equal, round and reactive to light. No scleral icterus. OROPHARYNX: Moist mucosa. NECK: Trachea midline. Supple and not tender, no meningeal signs CARDIOVASCULAR: Regular rate and rhythm. Systolic murmur at the left sternal border. RESPIRATORY: Bilateral coarse breath sounds ABDOMEN: Soft, nondistended. Bowel sounds present and normoactive.Not tender EXTREMITIES: No clubbing, cyanosis. Swelling of the right upper and lower extremities. No joint effusion. NEUROLOGICAL: Not moving the right upper and lower extremity. PSYCHIATRIC: Unable to assess LINE: No evidence of infection Assessment and Plan - Plan Impression MSSA sepsis L sided endocarditis AV, due to IVDU - has large vegetation AV, causing mild obstruction CVA with R sided weakness, aphasia, due to embolic event from his IE Persistent fevers. Resolved Respiratory failure, has bilateral infiltrates - doing well post extubation MSSA PNA, S/P Rx Recommendation Continue Ancef Continue Rifampin for synergy Will need long course of IV Abx - anticipate Abx until Dec 18 Remove central line and place PICC Monitor progress Per CTS not surgical candidate D/W RN
--- NOTE | 2017-11-19 10:30 | P.PN ---
Subjective Interval history: Pt seen and examined. AFVSS. D/W RN. No acute events overnight. Pt with expressive aphasia but seems to be trying to communicate somewhat purposefully. Moving RUE and RLE somewhat today on my encounter. Follows simple commands. Physical Exam Vital signs: Vital Signs 11/18/17 10:46 11/18/17 11:21 11/18/17 12:00 Temperature 98.1 F Pulse Rate 92 H 97 H 98 H Respiratory Rate 21 15 24 Blood Pressure 138/64 132/61 Pulse Oximetry 95 96 11/18/17 14:46 11/18/17 15:38 11/18/17 16:00 Temperature 98.3 F Pulse Rate 95 H 97 H 96 H Respiratory Rate 20 15 22 Blood Pressure 135/61 137/63 Pulse Oximetry 95 100 11/18/17 18:46 11/18/17 19:20 11/18/17 20:00 Temperature 98.5 F Pulse Rate 94 H 100 H Respiratory Rate 20 21 Blood Pressure 137/63 132/58 L Pulse Oximetry 94 L 99 11/18/17 20:47 11/18/17 23:08 11/19/17 00:00 Temperature 98.7 F Pulse Rate 102 H 95 H 94 H Respiratory Rate 19 20 20 Blood Pressure 137/63 Pulse Oximetry 11/19/17 03:47 11/19/17 04:00 11/19/17 07:50 Temperature 98.6 F Pulse Rate 95 H 96 H 95 H Respiratory Rate 18 22 15 Blood Pressure 144/71 H Pulse Oximetry 100 Intake & Output 11/18/17 11/19/17 11/19/17 18:59 06:59 18:59 Intake Total 960 / 960 240 / 240 Output Total 800 / 800 950 / 950 Balance 160 / 160 -710 / -710 Weight 74.6 kg Intake: IV 240 / 240 240 / 240 Ancef Inj 2,000 MG In NS Inj 240 / 240 240 / 240 100 ML @ 240 mls/hr IV.SIG Q8H JONATHON Rx#:[id number] Oral 720 / 720 Output: Urine 950 / 950 Urine Amount (Catheter) 800 / 800 Condom 800 / 800 Other: Date of Last Bowel Movement 11/18/17 # Bowel Movements 3 Narrative: GENERAL: WN, WD male resting in bed in NAD. SKIN: Warm and dry. HEENT: PERRLA. HEART: Tachycardic with 2/6 CRISTINA. LUNGS: CTAB without wheezes or crackles. ABDOMEN: +BS, soft, NT, ND. EXTREMITIES: No LE edema. 2+ pedal pulses. NEURO: Awake and alert. Expressive aphasia. Moving LUE and LLE when asked. Some spontaneous movement of RUE and RLE. Favors the L side but will track to the right. - Urinary Catheter Management Indwelling Urethral Catheter Cath placed during this visit: no Reason for continuing: Not indwelling catheter Condom Cath placed during this visit: yes Reason for continuing: Not indwelling catheter Insertion date: 11/12/17 Straight Cath placed during this visit: no Reason for continuing: Not indwelling catheter Results - Labs CBC & Chem 7: 11/18/17 06:00 11/18/17 06:00 Laboratory Results - last 24 hr 11/18/17 11/18/17 11/18/17 11:53 12:00 18:21 POC Glucose 103 91 RPR Nonreactive 11/18/17 11/19/17 23:08 06:44 POC Glucose 95 83 RPR Assessment and Plan - Assessment (1) Endocarditis Code(s): I38 - Endocarditis, valve unspecified Status: Acute (2) Sepsis Code(s): A41.9 - Sepsis, unspecified organism Status: Acute (3) Stroke, embolic Code(s): I63.9 - Cerebral infarction, unspecified Status: Acute (4) IV drug abuse Code(s): F19.10 - Other psychoactive substance abuse, uncomplicated Status: Acute (5) MSSA bacteremia Code(s): R78.81 - Bacteremia Status: Acute - Plan 31 year old male with history of IVDU admitted 11/04 after he was found on the floor of his apartment altered with right-sided hemiparesis. The patient had originally presented to the ER on 10/30 with fevers and back pain. At that visit , MRI of the back was negative and he was discharged home. Blood cultures ended up returning positive for MSSA in 4 out of the 4 bottles. The patient was attempted to be contacted but unfortunately he could not be reached. Upon presentation back to the ED, CT brain demonstrated a small amount of subarachnoid blood and small areas of decreased density suggestive of acute infarcts, and MRI confirmed multiple small areas of infarct. 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 He was also found to have an INR of 9.8 with a concern that the IV drugs he was using were contaminated. He was transfused 4 units of FFP and FEIBA with normalization of his INR. He was intubated on 11/05 for acute respiratory failure, self-extubated 11/07 with subsequent reintubation later that day, and has since been extubated on 11/13. Infectious MSSA bacteremia [place] AV endocarditis Septic emboli Pneumonia Lactic acidosis - resolved - Blood cultures from 10/30, 11/04, 11/05, 11/06, and 11/07 + for MSSA - Repeat blood culture from 11/08, 11/09, and 11/11 NGTD - WBC normal - 2D echo demonstrating EF of 60-65% and a 1.7 x 1.0 cm large vegetation on the aortic valve with severe AV regurgitation - ID following - On cefazolin and Rifampin until 12/18 - Place PICC line Respiratory Acute respiratory failure - resolved Aspiration PNA MSSA sputum - Extubated since 11/13 - CXR 11/16 w/ findings suggestive of pulmonary edema - Supplemental O2 to maintain sats >92% - Completed course of Levaquin for aspiration - Bronchodilators Cardiovascular Cardiogenic shock Severe AV regurgitation Hypertension - Continue amlodipine 5 mg 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 Subarachnoid bleed - resolved IVDU Seizures Fall 11/17 - Imaging: * Head CT 11/04 with new infarct R parietal lobe, faint subarachnoid hemorrhage over high parietal convex bilaterally * Head and neck CTA negative * MRI 11/04 with multiple infarcts suggesting embolic occlusion * Repeat head CT 11/05 with new large area of edema in L MCA territory with no significant mass effect or midline shift, cerebellar areas of edema, and apparent resolution of SAH * Repeat head CT 11/06 and 11/12 with stable edema, no new hemorrhage or infarct * MRI brain 11/13 showing evolving bilateral areas of infarction with mild mass effect on L lateral ventricle * EEG 11/04 w/ moderate diffuse encephalopathy but no seizure activity * Repeat EEG 11/12 abnormal but no apparent evidence of epileptiform features * CT head 11/17 after patient fell out of bed showing evolving left MCA territory and R parietal lobe infarcts with localized mass effect and probably petechial hemorrhage. No significant midline shift - Neurosurgery consulted, no surgical intervention at this time - Neurology following, ready for rehab neuro-mcdaniels - Continue Keppra BID - PT recommending rehab - ST recommending pureed, thin liquids Heme Elevated INR at 9.8 - resolved Salicylate elevation Anemia - Elevated INR likely secondary to IV drug contamination - Corrected after 4 units FFP and FEIBA - Anemia likely secondary to acute illness - H&H stable - Hemodynamically stable - No signs of acute bleeding DVT prophylaxis: holding pharmacologic DVT prophylaxis due to risks of hemorrhagic conversion GI prophylaxis: PPI Disposition: Transfer to med/surg Discussed Condition With: registry rn Planning: Needs IV antibiotics until 12/18 Will need placement to rehab (2) Sepsis Qualifiers: Sepsis type: sepsis due to unspecified organism Qualified Code(s): A41.9 - Sepsis, unspecified organism
--- NOTE | 2017-11-19 12:25 | P.DIET ---
Nutritional Evaluation Type of nutrition evaluation: follow-up (Previous TF) Nutrition consult regarding: Tube Feeding Subjective Subjective Comments: Pt is extubated and on a Pureed diet. He is unable to really communicate and provide any intelligible information unfortunately. PO intake is relatively poor. Objective - Diagnosis Sepsis, Stroke Symptoms, r/o septic emboli of the brain - Objective % IBW: 116 (IBW = 142#) Body Weight Used for Calculations: Actual (81.6 kg) Energy Needs - Lower Range (kCal/kg): 25 Energy Needs - Upper Range (kCal/kg): 30 Lower Limit kCal/kg (kCals): 2,040 Upper Limit kCal/kg (kCals): 2,448 Lower Limit Protein Factor (Grams per Kg): 1.2 Upper Limit Protein Factor (Grams per Kg): 1.6 Lower Protein Needs (Protein): 98 Upper Protein Needs (Protein): 131 Dietitian Reviewed in Medical Record: Current diet, Curent medications, Intake & Output, Labs Diet Order: Heart Healthy, Pureed Speech Therapy Recommendations: Yes (Pureed) Assessment Assessment: Pt is now extubated and is on a Heart Healthy, Pureed diet per ST recs. He currently is unable to really communicate enough to be understood. His PO intake is relatively poor and I have added Enlive TID to his trays. Will monitor his tolerance and acceptance to PO supplements. Wt loss noted, likely r/ t fluid. +BM. Dietitian following. Recommendations: 1. Continue Heart Healthy diet, consistency per ST recs. 2. Enlive TID. Dietitian to Monitor: Lab values, Supplement acceptance, Intake & Output, Diet tolerance, Weight change, PO Intake, Swallow recommendations, Medical course
[2017-11-19] MEDS: Hypromellose 0.3% Opth Gel 10 GM Bottle EACH EYE SCH (21:34)
[2017-11-20] MEDS: Insulin NovoLOG Aspart Correctional Sugar Inj SQ SCH ×4 (00:27→21:29)
[2017-11-20] MEDS: Oral Hygiene Kit OROPHARYNG SCH ×3 (01:44→17:31)
--- NOTE | 2017-11-20 09:36 | P.PN ---
Physical Exam Vital signs: Vital Signs 11/19/17 12:00 11/19/17 16:00 11/19/17 18:05 Temperature 98.3 F 98.4 F 98.4 F Pulse Rate 106 H 85 96 H Respiratory Rate 20 20 18 Blood Pressure 124/59 L 138/63 135/60 Pulse Oximetry 94 L 99 94 L 11/19/17 20:00 11/20/17 00:00 11/20/17 05:11 Temperature 97.7 F 97.4 F L Pulse Rate 96 H 92 H 105 H Respiratory Rate 18 18 Blood Pressure 141/62 H 138/62 Pulse Oximetry 94 L 94 L 11/20/17 07:33 Temperature 98 F Pulse Rate 99 H Respiratory Rate 18 Blood Pressure 135/63 Pulse Oximetry 95 Intake & Output 11/19/17 11/20/17 11/20/17 18:59 06:59 18:59 Intake Total 1080 / 1080 240 / 240 Output Total 800 / 800 1000 / 1000 Balance 280 / 280 240 / 240 -1000 / -1000 Weight 78.8 kg 78.6 kg Intake: IV 120 / 120 240 / 240 Ancef Inj 2,000 MG In NS Inj 120 / 120 240 / 240 100 ML @ 240 mls/hr IV.SIG Q8H JONATHON Rx#:[id number] Oral 960 / 960 Output: Urine 800 / 800 1000 / 1000 Other: Date of Last Bowel Movement 11/19/17 11/19/17 Narrative: Subjective AFVSS. No acute events overnight. Expressive aphasia, improving. Moving RUE and RLE. Follows some simple commands. Physical Exam GENERAL: Middle age male resting in bed in NAD. SKIN: Warm and dry. HEENT: PERRLA. HEART: Tachycardic with 2/6 CRISTINA. LUNGS: CTAB. no wheezes or crackles. ABDOMEN: +BS, soft, NT, ND. EXTREMITIES: No LE edema. 2+ pedal pulses. NEURO: Awake and alert. Expressive aphasia. Moving LUE and LLE when asked. Some spontaneous movement of RUE and RLE. Favors the L side but will track to the right. Assessment and Plan 31 year old male with history of IVDU admitted 11/04 after he was found on the floor of his apartment altered with right-sided hemiparesis. The patient had originally presented to the ER on 10/30 with fevers and back pain. At that visit , MRI of the back was negative and he was discharged home. Blood cultures ended up returning positive for MSSA in 4 out of the 4 bottles. The patient was attempted to be contacted but unfortunately he could not be reached. Upon presentation back to the ED, CT brain demonstrated a small amount of subarachnoid blood and small areas of decreased density suggestive of acute infarcts, and MRI confirmed multiple small areas of infarct. 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 He was also found to have an INR of 9.8 with a concern that the IV drugs he was using were contaminated. He was transfused 4 units of FFP and FEIBA with normalization of his INR. He was intubated on 11/05 for acute respiratory failure, self-extubated 11/07 with subsequent reintubation later that day, and has since been extubated on 11/13. Infectious MSSA bacteremia [place] AV endocarditis Septic emboli Pneumonia Lactic acidosis - resolved - Blood cultures from 10/30, 11/04, 11/05, 11/06, and 11/07 + for MSSA - Repeat blood culture from 11/08, 11/09, and 11/11 NGTD - WBC normal - 2D echo demonstrating EF of 60-65% and a 1.7 x 1.0 cm large vegetation on the aortic valve with severe AV regurgitation - ID following - On cefazolin and Rifampin until 12/18 - Place PICC line Respiratory Acute respiratory failure - resolved Aspiration PNA MSSA sputum - Extubated since 11/13 - CXR 11/16 w/ findings suggestive of pulmonary edema - Supplemental O2 to maintain sats >92% - Completed course of Levaquin for aspiration - Bronchodilators Cardiovascular Cardiogenic shock Severe AV regurgitation Hypertension - Continue amlodipine 5 mg 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 Subarachnoid bleed - resolved IVDU Seizures Fall 11/17 - Imaging: * Head CT 11/04 with new infarct R parietal lobe, faint subarachnoid hemorrhage over high parietal convex bilaterally * Head and neck CTA negative * MRI 11/04 with multiple infarcts suggesting embolic occlusion * Repeat head CT 11/05 with new large area of edema in L MCA territory with no significant mass effect or midline shift, cerebellar areas of edema, and apparent resolution of SAH * Repeat head CT 11/06 and 11/12 with stable edema, no new hemorrhage or infarct * MRI brain 11/13 showing evolving bilateral areas of infarction with mild mass effect on L lateral ventricle * EEG 11/04 w/ moderate diffuse encephalopathy but no seizure activity * Repeat EEG 11/12 abnormal but no apparent evidence of epileptiform features * CT head 11/17 after patient fell out of bed showing evolving left MCA territory and R parietal lobe infarcts with localized mass effect and probably petechial hemorrhage. No significant midline shift - Neurosurgery consulted, no surgical intervention at this time - Neurology following, ready for rehab neuro-mcdaniels - Continue Keppra BID - PT recommending rehab - ST recommending pureed, thin liquids - add seroquel Heme Elevated INR at 9.8 - resolved Salicylate elevation Anemia - Elevated INR likely secondary to IV drug contamination - Corrected after 4 units FFP and FEIBA - Anemia likely secondary to acute illness - H&H stable - Hemodynamically stable - No signs of acute bleeding DVT prophylaxis: holding pharmacologic DVT prophylaxis due to risks of hemorrhagic conversion GI prophylaxis: PPI Disposition: Transfer to med/surg Discussed 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 Planning: Needs IV antibiotics until 12/18 Will need placement to rehab - Urinary Catheter Management Indwelling Urethral Catheter Cath placed during this visit: no Reason for continuing: Not indwelling catheter Condom Cath placed during this visit: yes Reason for continuing: Not indwelling catheter Insertion date: 11/12/17 Straight Cath placed during this visit: no Reason for continuing: Not indwelling catheter Results - Labs CBC & Chem 7: 11/18/17 06:00 11/18/17 06:00 Laboratory Results - last 24 hr 11/18/17 11/19/17 11/19/17 12:00 12:05 16:50 POC Glucose 95 98 RPR Nonreactive 11/20/17 11/20/17 00:13 05:36 POC Glucose 84 89 RPR Assessment and Plan - Assessment (1) Endocarditis Code(s): I38 - Endocarditis, valve unspecified Status: Acute (2) Sepsis Code(s): A41.9 - Sepsis, unspecified organism Status: Acute (3) Stroke, embolic Code(s): I63.9 - Cerebral infarction, unspecified Status: Acute (4) IV drug abuse Code(s): F19.10 - Other psychoactive substance abuse, uncomplicated Status: Acute (5) MSSA bacteremia Code(s): R78.81 - Bacteremia Status: Acute (2) Sepsis Qualifiers: Sepsis type: sepsis due to unspecified organism Qualified Code(s): A41.9 - Sepsis, unspecified organism
[2017-11-20] MEDS: levETIRAcetam 500 MG Tablet PO SCH ×2 (09:47→21:55)
[2017-11-20] MEDS: Pantoprazole Inj 40 MG Vial IV.PUSH SCH (09:48)
[2017-11-20] MEDS: Senna/Docusate Sodium 8.6/50 MG Tablet PO SCH ×2 (09:48→21:56)
[2017-11-20] MEDS: amLODIPine 5 MG Tablet PO SCH (09:48)
--- NOTE | 2017-11-20 11:12 | P.PNID ---
Subjective Remarks: Patient is a 31-year-old male, who initially presented to [place] emergency room October 30 complaining of 3 day history of headache. He gave a history of IV drug use. He was not febrile during that visit. WBC was normal. He underwent CT of the brain which was negative. Also underwent MRI of the thoracic and lumbar spine which were both negative for any infection. 2 blood cultures were done at that time and he was discharged. He came back to the hospital after his friends found him on the kitchen floor. He was reportedly unable to move his right side. And he was also noted to have some difficulty speaking. He remains afebrile. His white count is elevated. His CT of the head is now showing some findings in the right parietal area, as well as faint subarachnoid hemorrhage. CTA of the neck is negative. He has evidence of right-sided weakness, as well as expressive aphasia. The 2 blood cultures done on his ED visit is now reported as growing MSSA. Infectious disease consultation has been requested to evaluate the patient. Notes reviewed Extubated 11/13 and doing well Out of ICU Afebrile. On room air. Following commands. Not moving the right side. Central line out, has PIV Trying to communicate but not getting words out. Last CT head no change in edema Blood culture from 11/09 and 11/11 has no growth. BC (+) 11/04-11/07 Sputum with MSSA 11/05 Not a surgical candidate per CTS evaluation. Echocardiogram: The left ventricular systolic function is normal with an estimated ejection fraction in the range of 60-65%. Trace mitral valve regurgitation. Large vegetation noted on the aortic valve (1.7cm x 1.0cm) Mild obstruction of the aortic valve due to vegetation with a mean gradient of 11 mmHg Severe eccentric aortic regurgitation There is trace tricuspid valve regurgitation. Antibiotics: Cefazolin Rifampin Lines: [facility] central line - 11/05 Past Medical History: Diabetes Hypertension IVDU Allergies/Adverse Reactions: Allergies No Known Allergies Allergy (Unverified 10/30/17 21:54) Objective Vital Signs 11/19/17 12:00 11/19/17 16:00 11/19/17 18:05 Temperature 98.3 F 98.4 F 98.4 F Pulse Rate 106 H 85 96 H Respiratory Rate 20 20 18 Blood Pressure 124/59 L 138/63 135/60 Pulse Oximetry 94 L 99 94 L 11/19/17 20:00 11/20/17 00:00 11/20/17 05:11 Temperature 97.7 F 97.4 F L Pulse Rate 96 H 92 H 105 H Respiratory Rate 18 18 Blood Pressure 141/62 H 138/62 Pulse Oximetry 94 L 94 L 11/20/17 07:33 11/20/17 08:00 Temperature 98 F 98 F Pulse Rate 99 H 90 Respiratory Rate 18 20 Blood Pressure 135/63 128/60 Pulse Oximetry 95 96 Intake & Output 11/19/17 11/20/17 11/20/17 18:59 06:59 18:59 Intake Total 1080 / 1080 240 / 240 Output Total 800 / 800 1000 / 1000 Balance 280 / 280 240 / 240 -1000 / -1000 Weight 78.8 kg 78.6 kg Intake: IV 120 / 120 240 / 240 Ancef Inj 2,000 MG In NS Inj 120 / 120 240 / 240 100 ML @ 240 mls/hr IV.SIG Q8H JONATHON Rx#:[id number] Oral 960 / 960 Output: Urine 800 / 800 1000 / 1000 Other: Date of Last Bowel Movement 11/19/17 11/19/17 Lab - Chemistry Results 11/18/17 11/18/17 11/18/17 11:53 18:21 23:08 POC Glucose 103 91 95 11/19/17 11/19/17 11/19/17 06:44 12:05 16:50 POC Glucose 83 95 98 11/20/17 11/20/17 00:13 05:36 POC Glucose 84 89 Imaging: ITS Impressions Head CTA 11/04/17 05:39 CONCLUSION: 1. Patient is left vertebral dominant. 2. Otherwise, intracranial vessels are all patent without embolic or aneurysmal disease. Neck CTA 11/04/17 05:39 CONCLUSION: 1. Patient is left vertebral dominant. 2. Otherwise, arch and cervical vessels are patent throughout. Head MRI 11/13/17 00:00 CONCLUSION: 1. Evolving bilateral areas of infarction. There is mild mass effect on the left lateral ventricle particularly the posterior horn which is effaced. Chest X-Ray 11/16/17 06:00 CONCLUSION: Increasing indistinctness and engorgement of the central bronchopulmonary markings suggestive of pulmonary edema. Knee X-Ray 11/17/17 00:00 CONCLUSION: No acute findings. Shoulder X-Ray 11/17/17 00:00 CONCLUSION: No acute bony abnormalities. Head CT 11/17/17 15:46 CONCLUSION: 1. Evolving left MCA territory and right parietal lobe infarcts as above with localized mass effect and probable petechial hemorrhage. No significant midline shift. . Physical Exam: GENERAL: Awake, following commands. Has expressive aphasia SKIN: Warm and dry. No generalized rash. HEAD: Atraumatic. Normocephalic. No temporal wasting, or tenderness. EYES: [place] conjunctiva. Has petechia on L conjunctiva. Pupils equal, round and reactive to light. No scleral icterus. OROPHARYNX: Moist mucosa. NECK: Trachea midline. Supple and not tender, no meningeal signs CARDIOVASCULAR: Regular rate and rhythm. Systolic murmur at the left sternal border. RESPIRATORY: Bilateral coarse breath sounds ABDOMEN: Soft, nondistended. Bowel sounds present and normoactive.Not tender EXTREMITIES: No clubbing, cyanosis. Swelling of the right upper and lower extremities. No joint effusion. NEUROLOGICAL: Not moving the right upper and lower extremity. PSYCHIATRIC: Unable to assess LINE: PIV no evidence of infection Assessment and Plan - Plan Impression MSSA sepsis L sided endocarditis AV, due to IVDU - has large vegetation AV, causing mild obstruction CVA with R sided weakness, aphasia, due to embolic event from his IE Persistent fevers. Resolved Respiratory failure, has bilateral infiltrates - doing well post extubation MSSA PNA, S/P Rx Recommendation Continue Ancef Continue Rifampin for synergy Labs weekly while on Abx: CBC, creatinine and LFT Will need long course of IV Abx - anticipate Abx until Dec 18 PICC Monitor progress Per CTS not surgical candidate
[2017-11-20] MEDS: Chlorhexidine 0.12% Oral Kit 15 ML UDC OROPHARYNG SCH ×2 (17:31→21:29)
[2017-11-20] MEDS: Hypromellose 0.3% Opth Gel 10 GM Bottle EACH EYE SCH (21:57)
[2017-11-21] MEDS: Insulin NovoLOG Aspart Correctional Sugar Inj SQ SCH ×3 (01:33→12:32)
[2017-11-21] MEDS: Oral Hygiene Kit OROPHARYNG SCH ×3 (01:33→17:24)
[2017-11-21] MEDS: Pantoprazole Inj 40 MG Vial IV.PUSH SCH (08:32)
[2017-11-21] MEDS: Senna/Docusate Sodium 8.6/50 MG Tablet PO SCH ×2 (08:33→21:53)
[2017-11-21] MEDS: amLODIPine 5 MG Tablet PO SCH (08:33)
[2017-11-21] MEDS: QUEtiapine 25 MG Tablet PO SCH (08:33)
[2017-11-21] MEDS: levETIRAcetam 500 MG Tablet PO SCH ×2 (08:33→20:22)
[2017-11-21] MEDS: Chlorhexidine 0.12% Oral Kit 15 ML UDC OROPHARYNG SCH ×2 (08:33→20:23)
--- NOTE | 2017-11-21 08:57 | P.PNNEU ---
Subjective Subjective Comments: No acute events reported Active Medications: Active Medications Acetaminophen (Tylenol) 650 mg PO Q6H PRN PRN Reason: TEMPERATURE > 101 F Last Admin: 11/12/17 01:19 Dose: 650 mg Albuterol (Albuterol Neb (Prn)) 2.5 mg NEB Q2HR NEB PRN PRN Reason: DYSPNEA Amlodipine Besylate (Norvasc) 5 mg PO DAILY [facility] Last Admin: 11/21/17 08:33 Dose: 5 mg Artificial Tears (Genteal Severe Dry Eye Relief 0.3% Opth Gel) 1 drops EACH EYE [facility] Last Admin: 11/20/17 21:57 Dose: Not Given Chlorhexidine Gluconate (Peridex 0.12% Oral Kit) 15 ml OROPHARYNG BID@0800, 2000 [facility] Last Admin: 11/21/17 08:33 Dose: Not Given Clonidine HCl (Catapres) 0.1 mg PO Q6H PRN PRN Reason: SBP>160, DBP>90 Dextrose (D50w Vial) 50 ml IV.PUSH UNSCH PRN PRN Reason: PER HYPOGLYCEMIA PROTOCOL Flumazenil (Romazecon Inj) 0.2 mg IV.PUSH Q1M PRN PRN Reason: OVERSEDATION Glucagon (Glucagon Inj) 1 mg OTHER PRN PRN PRN Reason: for Hypoglycemia Protocol Hyoscyamine (Levsin Liq) 0.125 mg SL Q4H PRN PRN Reason: SECRETIONS Cefazolin Sodium 2,000 mg/ (Sodium Chloride) 120 mls @ 240 mls/hr IV.SIG Q8H [facility] Last Admin: 11/21/17 08:32 Dose: 100 mls/hr Insulin Aspart (Novolog Insulin Correctional Sugar Inj) 0 unit SQ Q6HR [facility]; Protocol Last Admin: 11/21/17 06:04 Dose: Not Given Labetalol HCl (Trandate Inj) 10 mg IV.PUSH Q1H PRN PRN Reason: SYS BP GREATER THAN 160 MMHG Levetiracetam (Keppra) 1,000 mg PO BID [facility] Last Admin: 11/21/17 08:33 Dose: 1,000 mg Nitroglycerin (Nitro-Bid 2% Oint) 1 inch TOPICAL Q6HR PRN PRN Reason: SBP>160, DBP>90 Ondansetron HCl (Zofran Odt) 4 mg PO Q6H PRN PRN Reason: NAUSEA OR VOMITING Pantoprazole Sodium (Protonix Inj) 40 mg IV.PUSH DAILY [facility] Last Admin: 11/21/17 08:32 Dose: 40 mg Potassium Bicarb/Potassium Chloride (K-Lyte Cl Eff) 50 meq PO ONCE [facility] Last Admin: 11/04/17 21:31 Dose: 50 meq Quetiapine Fumarate (Seroquel) 25 mg PO DAILY [facility] Last Admin: 11/21/17 08:33 Dose: 25 mg Rifampin (Rifampin) 300 mg PO Q12HR [facility] Last Admin: 11/21/17 08:32 Dose: 300 mg Senna/Docusate Sodium (Liv-Colace) 1 tab PO BID [facility] Last Admin: 11/21/17 08:33 Dose: Not Given Sodium Chloride (Ns Flush) 2 ml IV.FLUSH BID [facility] Last Admin: 11/21/17 08:34 Dose: 2 ml Sodium Chloride (Ns Flush) 2 ml IV.FLUSH PRN PRN PRN Reason: FLUSH AFTER USING IV ACCESS Allergies/Adverse Reactions: Allergies Allergy/AdvReac Type Severity Reaction Status Date / Time No Known Allergies Allergy Unverified 10/30/17 21:54 Physical Exam Vital signs: Vital Signs 11/20/17 12:00 11/20/17 16:00 11/20/17 20:00 Temperature 97.9 F 98 F 98.7 F Pulse Rate 100 H 95 H 101 H Respiratory Rate 20 21 18 Blood Pressure 120/58 L 125/59 L 111/51 L Pulse Oximetry 97 95 95 11/21/17 00:00 Temperature 98.4 F Pulse Rate 89 Respiratory Rate 18 Blood Pressure 109/52 L Pulse Oximetry 95 Intake & Output 11/20/17 11/21/17 11/21/17 18:59 06:59 18:59 Intake Total 240 / 240 120 / 120 Output Total 1200 / 1200 Balance -960 / -960 120 / 120 Weight 78.6 kg 78.6 kg Intake: IV 240 / 240 120 / 120 Ancef Inj 2,000 MG In NS Inj 240 / 240 120 / 120 100 ML @ 240 mls/hr IV.SIG Q8H [facility] Rx#:[id number] Output: Urine 1200 / 1200 Stool 0 / 0 Other: # Voids 4 4 Date of Last Bowel Movement 11/19/17 11/20/17 11/21/17 # Bowel Movements 1 Narrative: can move rle some awake octaviano can say an occasional phrase not following commands some agitation - Urinary Catheter Management Indwelling Urethral Catheter Cath placed during this visit: no Reason for continuing: Not indwelling catheter Condom Cath placed during this visit: yes Reason for continuing: Not indwelling catheter Insertion date: 11/12/17 Straight Cath placed during this visit: no Reason for continuing: Not indwelling catheter Objective Laboratory Results - last 24 hr 11/20/17 11/20/17 11/20/17 12:44 18:03 23:10 POC Glucose 113 H 87 84 11/21/17 05:49 POC Glucose 105 Review/Management - Review/Management Plan: imp mri 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 when off sedatives? -- 11/13/17 no change leg tremor vs sz yest ct stable eeg neg sz on keppra pk to dc sedatives today on keppa 1000 bid 11/15/17 no sz loks well on keppra eeg neg stable neuro left mca cva endocarditis ready for rehab neurowise 11/18/17 dong better oob with sitter in room to prevent falls ? to floor? 11/21/17 looks much better really should be in a chair add lexapro to seroquel may calm him down some he did not have PT see him yesterday and they should work with him daily and get oob to chair he should be less agitated if in chair but hi needs sitter to prevent him form getting up on own
[2017-11-21] MEDS: Escitalopram 10 MG Tablet PO SCH (09:43)
--- NOTE | 2017-11-21 11:21 | P.PN ---
Physical Exam Vital signs: Vital Signs 11/20/17 12:00 11/20/17 16:00 11/20/17 20:00 Temperature 97.9 F 98 F 98.7 F Pulse Rate 100 H 95 H 101 H Respiratory Rate 20 21 18 Blood Pressure 120/58 L 125/59 L 111/51 L Pulse Oximetry 97 95 95 11/21/17 00:00 11/21/17 08:00 Temperature 98.4 F 98.0 F Pulse Rate 89 100 H Respiratory Rate 18 20 Blood Pressure 109/52 L 147/78 H Pulse Oximetry 95 95 Intake & Output 11/20/17 11/21/17 11/21/17 18:59 06:59 18:59 Intake Total 240 / 240 120 / 120 Output Total 1200 / 1200 Balance -960 / -960 120 / 120 Weight 78.6 kg 78.6 kg Intake: IV 240 / 240 120 / 120 Ancef Inj 2,000 MG In NS Inj 240 / 240 120 / 120 100 ML @ 240 mls/hr IV.SIG Q8H [facility] Rx#:[id number] Output: Urine 1200 / 1200 Stool 0 / 0 Other: # Voids 4 4 Date of Last Bowel Movement 11/19/17 11/20/17 11/21/17 # Bowel Movements 1 Narrative: Subjective AFVSS. No acute events overnight. Expressive aphasia, improving. Moving RUE and RLE. Follows some simple commands. Agitated in restraints. Add seroquel Physical Exam GENERAL: Middle age male resting in bed in NAD. SKIN: Warm and dry. HEENT: PERRLA. HEART: Tachycardic with 2/6 CRISTINA. LUNGS: CTAB. no wheezes or crackles. ABDOMEN: +BS, soft, NT, ND. EXTREMITIES: No LE edema. 2+ pedal pulses. NEURO: Awake and alert. Expressive aphasia. Moving LUE and LLE when asked. Some spontaneous movement of RUE and RLE. Favors the L side but will track to the right. Assessment and Plan 31 year old male with history of IVDU admitted 11/04 after he was found on the floor of his apartment altered with right-sided hemiparesis. The patient had originally presented to the ER on 10/30 with fevers and back pain. At that visit , MRI of the back was negative and he was discharged home. Blood cultures ended up returning positive for MSSA in 4 out of the 4 bottles. The patient was attempted to be contacted but unfortunately he could not be reached. Upon presentation back to the ED, CT brain demonstrated a small amount of subarachnoid blood and small areas of decreased density suggestive of acute infarcts, and MRI confirmed multiple small areas of infarct. 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 He was also found to have an INR of 9.8 with a concern that the IV drugs he was using were contaminated. He was transfused 4 units of FFP and FEIBA with normalization of his INR. He was intubated on 11/05 for acute respiratory failure, self-extubated 11/07 with subsequent reintubation later that day, and has since been extubated on 11/13. Infectious MSSA bacteremia [place] AV endocarditis Septic emboli Pneumonia Lactic acidosis - resolved - Blood cultures from 10/30, 11/04, 11/05, 11/06, and 11/07 + for MSSA - Repeat blood culture from 11/08, 11/09, and 11/11 NGTD - WBC normal - 2D echo demonstrating EF of 60-65% and a 1.7 x 1.0 cm large vegetation on the aortic valve with severe AV regurgitation - ID following - On cefazolin and Rifampin until 12/18 - Place PICC line Respiratory Acute respiratory failure - resolved Aspiration PNA MSSA sputum - Extubated since 11/13 - CXR 11/16 w/ findings suggestive of pulmonary edema - Supplemental O2 to maintain sats >92% - Completed course of Levaquin for aspiration - Bronchodilators Cardiovascular Cardiogenic shock Severe AV regurgitation Hypertension - Continue amlodipine 5 mg 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 Subarachnoid bleed - resolved IVDU Seizures Fall 11/17 - Imaging: * Head CT 11/04 with new infarct R parietal lobe, faint subarachnoid hemorrhage over high parietal convex bilaterally * Head and neck CTA negative * MRI 11/04 with multiple infarcts suggesting embolic occlusion * Repeat head CT 11/05 with new large area of edema in L MCA territory with no significant mass effect or midline shift, cerebellar areas of edema, and apparent resolution of SAH * Repeat head CT 11/06 and 11/12 with stable edema, no new hemorrhage or infarct * MRI brain 11/13 showing evolving bilateral areas of infarction with mild mass effect on L lateral ventricle * EEG 11/04 w/ moderate diffuse encephalopathy but no seizure activity * Repeat EEG 11/12 abnormal but no apparent evidence of epileptiform features * CT head 11/17 after patient fell out of bed showing evolving left MCA territory and R parietal lobe infarcts with localized mass effect and probably petechial hemorrhage. No significant midline shift - Neurosurgery consulted, no surgical intervention at this time - Neurology following, ready for rehab neuro-mcdaniels - Continue Keppra BID - PT recommending rehab - ST recommending pureed, thin liquids - add seroquel Heme Elevated INR at 9.8 - resolved Salicylate elevation Anemia - Elevated INR likely secondary to IV drug contamination - Corrected after 4 units FFP and FEIBA - Anemia likely secondary to acute illness - H&H stable - Hemodynamically stable - No signs of acute bleeding DVT prophylaxis: holding pharmacologic DVT prophylaxis due to risks of hemorrhagic conversion GI prophylaxis: PPI Disposition: Transfer to med/surg Discussed 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 Planning: Needs IV antibiotics until 12/18 Will need placement to rehab In restraints agitated on/off - Urinary Catheter Management Indwelling Urethral Catheter Cath placed during this visit: no Reason for continuing: Not indwelling catheter Condom Cath placed during this visit: yes Reason for continuing: Not indwelling catheter Insertion date: 11/12/17 Straight Cath placed during this visit: no Reason for continuing: Not indwelling catheter Results - Labs CBC & Chem 7: 11/18/17 06:00 11/18/17 06:00 Laboratory Results - last 24 hr 11/20/17 11/20/17 11/20/17 12:44 18:03 23:10 POC Glucose 113 H 87 84 11/21/17 05:49 POC Glucose 105 Assessment and Plan - Assessment (1) Endocarditis Code(s): I38 - Endocarditis, valve unspecified Status: Acute (2) Sepsis Code(s): A41.9 - Sepsis, unspecified organism Status: Acute (3) Stroke, embolic Code(s): I63.9 - Cerebral infarction, unspecified Status: Acute (4) IV drug abuse Code(s): F19.10 - Other psychoactive substance abuse, uncomplicated Status: Acute (5) MSSA bacteremia Code(s): R78.81 - Bacteremia Status: Acute (2) Sepsis Qualifiers: Sepsis type: sepsis due to unspecified organism Qualified Code(s): A41.9 - Sepsis, unspecified organism
[2017-11-21] MEDS: Hypromellose 0.3% Opth Gel 10 GM Bottle EACH EYE SCH (20:23)
[2017-11-22] MEDS: Oral Hygiene Kit OROPHARYNG SCH ×5 (01:34→23:25)
[2017-11-22] MEDS: QUEtiapine 25 MG Tablet PO SCH (08:32)
[2017-11-22] MEDS: Pantoprazole Inj 40 MG Vial IV.PUSH SCH (08:32)
[2017-11-22] MEDS: amLODIPine 5 MG Tablet PO SCH (08:32)
[2017-11-22] MEDS: Chlorhexidine 0.12% Oral Kit 15 ML UDC OROPHARYNG SCH ×2 (08:32→21:29)
[2017-11-22] MEDS: levETIRAcetam 500 MG Tablet PO SCH ×2 (08:32→21:30)
[2017-11-22] MEDS: Escitalopram 10 MG Tablet PO SCH (08:32)
[2017-11-22] MEDS: Senna/Docusate Sodium 8.6/50 MG Tablet PO SCH ×2 (08:33→21:30)
--- NOTE | 2017-11-22 09:44 | P.PN ---
Physical Exam Vital signs: Vital Signs 11/21/17 12:00 11/21/17 16:00 11/21/17 20:00 Temperature 99.3 F 98.1 F 98 F Pulse Rate 109 H 107 H 108 H Respiratory Rate 20 20 20 Blood Pressure 119/55 L 125/58 L 139/60 Pulse Oximetry 94 L 95 96 11/22/17 00:00 11/22/17 04:00 11/22/17 08:00 Temperature 98.1 F 98.5 F 98.8 F Pulse Rate 99 H 90 99 H Respiratory Rate 18 19 15 Blood Pressure 121/88 131/61 117/56 L Pulse Oximetry 97 96 94 L Intake & Output 11/21/17 11/22/17 11/22/17 18:59 06:59 18:59 Intake Total 720 / 720 120 / 120 Output Total 552 / 552 Balance 168 / 168 120 / 120 Weight 78.6 kg 75.8 kg Intake: IV 240 / 240 120 / 120 Ancef Inj 2,000 MG In NS Inj 240 / 240 120 / 120 100 ML @ 240 mls/hr IV.SIG Q8H [facility] Rx#:[id number] Oral 480 / 480 Output: Urine 550 / 550 Stool 2 / 2 Other: Post Void Residual 1 # Voids 4 # Incontinent Voids 3 2 Date of Last Bowel Movement 11/21/17 11/21/17 11/21/17 # Bowel Movements 1 # Incontinent Bowel Movements 3 Narrative: Subjective AFVSS. No acute events overnight. Expressive aphasia, improving. Moving RUE and RLE. Follows some simple commands. Less agitated discussed with the nurse, will keep off restraints with close monitoring as high risk of falls. On seroquel Physical Exam GENERAL: Middle age male resting in bed in NAD. Off restraints SKIN: Warm and dry. HEENT: PERRLA. HEART: Tachycardic with 2/6 CRISTINA. LUNGS: CTAB. no wheezes or crackles. ABDOMEN: +BS, soft, NT, ND. EXTREMITIES: No LE edema. 2+ pedal pulses. NEURO: Awake and alert. Expressive aphasia. Moving LUE and LLE when asked. Some spontaneous movement of RUE and RLE. Favors the L side but will track to the right. Assessment and Plan 31 year old male with history of IVDU admitted 11/04 after he was found on the floor of his apartment altered with right-sided hemiparesis. The patient had originally presented to the ER on 10/30 with fevers and back pain. At that visit , MRI of the back was negative and he was discharged home. Blood cultures ended up returning positive for MSSA in 4 out of the 4 bottles. The patient was attempted to be contacted but unfortunately he could not be reached. Upon presentation back to the ED, CT brain demonstrated a small amount of subarachnoid blood and small areas of decreased density suggestive of acute infarcts, and MRI confirmed multiple small areas of infarct. He was admitted to the [facility] where bedside echocardiogram revealed a large mobile mass ont he aortic valve with associated severe AV regurgitation. He was also found to have an INR of 9.8 with a concern that the IV drugs he was using were contaminated. He was transfused 4 units of FFP and FEIBA with normalization of his INR. He was intubated on 11/05 for acute respiratory failure, self-extubated 11/07 with subsequent reintubation later that day, and has since been extubated on 11/13. Infectious MSSA bacteremia [place] AV endocarditis Septic emboli Pneumonia Lactic acidosis - resolved - Blood cultures from 10/30, 11/04, 11/05, 11/06, and 11/07 + for MSSA - Repeat blood culture from 11/08, 11/09, and 11/11 NGTD - WBC normal - 2D echo demonstrating EF of 60-65% and a 1.7 x 1.0 cm large vegetation on the aortic valve with severe AV regurgitation - ID following - On cefazolin and Rifampin until 12/18 - Place PICC line Respiratory Acute respiratory failure - resolved Aspiration PNA MSSA sputum - Extubated since 11/13 - CXR 11/16 w/ findings suggestive of pulmonary edema - Supplemental O2 to maintain sats >92% - Completed course of Levaquin for aspiration - Bronchodilators Cardiovascular Cardiogenic shock Severe AV regurgitation Hypertension - Continue amlodipine 5 mg 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 Subarachnoid bleed - resolved IVDU Seizures Fall 11/17 - Imaging: * Head CT 11/04 with new infarct R parietal lobe, faint subarachnoid hemorrhage over high parietal convex bilaterally * Head and neck CTA negative * MRI 11/04 with multiple infarcts suggesting embolic occlusion * Repeat head CT 11/05 with new large area of edema in L MCA territory with no significant mass effect or midline shift, cerebellar areas of edema, and apparent resolution of SAH * Repeat head CT 11/06 and 11/12 with stable edema, no new hemorrhage or infarct * MRI brain 11/13 showing evolving bilateral areas of infarction with mild mass effect on L lateral ventricle * EEG 11/04 w/ moderate diffuse encephalopathy but no seizure activity * Repeat EEG 11/12 abnormal but no apparent evidence of epileptiform features * CT head 11/17 after patient fell out of bed showing evolving left MCA territory and R parietal lobe infarcts with localized mass effect and probably petechial hemorrhage. No significant midline shift - Neurosurgery consulted, no surgical intervention at this time - Neurology following, ready for rehab neuro-mcdaniels - Continue Keppra BID - PT recommending rehab - ST recommending pureed, thin liquids - add seroquel Heme Elevated INR at 9.8 - resolved Salicylate elevation Anemia - Elevated INR likely secondary to IV drug contamination - Corrected after 4 units FFP and FEIBA - Anemia likely secondary to acute illness - H&H stable - Hemodynamically stable - No signs of acute bleeding DVT prophylaxis: holding pharmacologic DVT prophylaxis due to risks of hemorrhagic conversion GI prophylaxis: PPI Disposition: Transfer to med/surg Discussed 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 Monitor closely as nacho risk of falls. - Urinary Catheter Management Indwelling Urethral Catheter Cath placed during this visit: no Reason for continuing: Not indwelling catheter Condom Cath placed during this visit: yes Reason for continuing: Not indwelling catheter Insertion date: 11/12/17 Straight Cath placed during this visit: no Reason for continuing: Not indwelling catheter Results - Labs CBC & Chem 7: 11/18/17 06:00 11/18/17 06:00 Assessment and Plan - Assessment (1) Endocarditis Code(s): I38 - Endocarditis, valve unspecified Status: Acute (2) Sepsis Code(s): A41.9 - Sepsis, unspecified organism Status: Acute (3) Stroke, embolic Code(s): I63.9 - Cerebral infarction, unspecified Status: Acute (4) IV drug abuse Code(s): F19.10 - Other psychoactive substance abuse, uncomplicated Status: Acute (5) MSSA bacteremia Code(s): R78.81 - Bacteremia Status: Acute (2) Sepsis Qualifiers: Sepsis type: sepsis due to unspecified organism Qualified Code(s): A41.9 - Sepsis, unspecified organism
--- NOTE | 2017-11-22 16:05 | P.PNID ---
Subjective Remarks: Patient is a 31-year-old male, who initially presented to [facility] emergency room October 30 complaining of 3 day history of headache. He gave a history of IV drug use. He was not febrile during that visit. WBC was normal. He underwent CT of the brain which was negative. Also underwent MRI of the thoracic and lumbar spine which were both negative for any infection. 2 blood cultures were done at that time and he was discharged. He came back to the hospital after his friends found him on the kitchen floor. He was reportedly unable to move his right side. And he was also noted to have some difficulty speaking. He remains afebrile. His white count is elevated. His CT of the head is now showing some findings in the right parietal area, as well as faint subarachnoid hemorrhage. CTA of the neck is negative. He has evidence of right-sided weakness, as well as expressive aphasia. The 2 blood cultures done on his ED visit is now reported as growing MSSA. Infectious disease consultation has been requested to evaluate the patient. Notes reviewed Doing well [place] ok Blood culture from 11/09 and 11/11 has no growth. BC (+) 11/04-11/07 Sputum with MSSA 11/05 Not a surgical candidate per CTS evaluation. Echocardiogram: The left ventricular systolic function is normal with an estimated ejection fraction in the range of 60-65%. Trace mitral valve regurgitation. Large vegetation noted on the aortic valve (1.7cm x 1.0cm) Mild obstruction of the aortic valve due to vegetation with a mean gradient of 11 mmHg Severe eccentric aortic regurgitation There is trace tricuspid valve regurgitation. Antibiotics: Cefazolin Rifampin Lines: [facility] central line - 11/05 Past Medical History: Diabetes Hypertension IVDU Allergies/Adverse Reactions: Allergies No Known Allergies Allergy (Unverified 10/30/17 21:54) Objective Vital Signs 11/21/17 20:00 11/22/17 00:00 11/22/17 04:00 Temperature 98 F 98.1 F 98.5 F Pulse Rate 108 H 99 H 90 Respiratory Rate 20 18 19 Blood Pressure 139/60 121/88 131/61 Pulse Oximetry 96 97 96 11/22/17 08:00 11/22/17 12:00 Temperature 98.8 F 98.5 F Pulse Rate 99 H 105 H Respiratory Rate 15 14 Blood Pressure 117/56 L 137/59 L Pulse Oximetry 94 L 94 L Intake & Output 08/09/18 08/10/18 08/10/18 18:59 06:59 18:59 Intake Total 720 / 720 120 / 120 Output Total 552 / 552 Balance 168 / 168 120 / 120 Weight 78.6 kg 75.8 kg Intake: IV 240 / 240 120 / 120 Ancef Inj 2,000 MG In NS Inj 240 / 240 120 / 120 100 ML @ 240 mls/hr IV.SIG Q8H [facility] Rx#:[id number] Oral 480 / 480 Output: Urine 550 / 550 Stool 2 / 2 Other: Post Void Residual 1 # Voids 4 # Incontinent Voids 3 2 Date of Last Bowel Movement 11/21/17 11/21/17 11/21/17 # Bowel Movements 1 # Incontinent Bowel Movements 3 Lab - Chemistry Results 11/20/17 11/20/17 11/21/17 18:03 23:10 05:49 POC Glucose 87 84 105 Imaging: ITS Impressions Head CTA 11/04/17 05:39 CONCLUSION: 1. Patient is left vertebral dominant. 2. Otherwise, intracranial vessels are all patent without embolic or aneurysmal disease. Neck CTA 11/04/17 05:39 CONCLUSION: 1. Patient is left vertebral dominant. 2. Otherwise, arch and cervical vessels are patent throughout. Head MRI 11/13/17 00:00 CONCLUSION: 1. Evolving bilateral areas of infarction. There is mild mass effect on the left lateral ventricle particularly the posterior horn which is effaced. Chest X-Ray 11/16/17 06:00 CONCLUSION: Increasing indistinctness and engorgement of the central bronchopulmonary markings suggestive of pulmonary edema. Knee X-Ray 11/17/17 00:00 CONCLUSION: No acute findings. Shoulder X-Ray 11/17/17 00:00 CONCLUSION: No acute bony abnormalities. Head CT 11/17/17 15:46 CONCLUSION: 1. Evolving left MCA territory and right parietal lobe infarcts as above with localized mass effect and probable petechial hemorrhage. No significant midline shift. . Physical Exam: GENERAL: Awake, following commands. Has expressive aphasia SKIN: Warm and dry. No generalized rash. HEAD: Atraumatic. Normocephalic. No temporal wasting, or tenderness. EYES: [place] conjunctiva. Has petechia on L conjunctiva. Pupils equal, round and reactive to light. No scleral icterus. OROPHARYNX: Moist mucosa. NECK: Trachea midline. Supple and not tender, no meningeal signs CARDIOVASCULAR: Regular rate and rhythm. Systolic murmur at the left sternal border. RESPIRATORY: Decreased at bases ABDOMEN: Soft, nondistended. Bowel sounds present and normoactive.Not tender EXTREMITIES: No clubbing, cyanosis. Swelling of the right upper and lower extremities. No joint effusion. NEUROLOGICAL: Not moving the right upper and lower extremity. PSYCHIATRIC: Unable to assess LINE: PIV no evidence of infection Assessment and Plan - Plan Impression MSSA sepsis L sided endocarditis AV, due to IVDU - has large vegetation AV, causing mild obstruction CVA with R sided weakness, aphasia, due to embolic event from his IE Persistent fevers. Resolved Respiratory failure, has bilateral infiltrates - doing well post extubation MSSA PNA, S/P Rx Recommendation Continue Ancef Continue Rifampin for synergy Labs weekly while on Abx: CBC, creatinine and LFT Will need long course of IV Abx - anticipate Abx until Dec 18 PICC Monitor progress Per CTS not surgical candidate Clinically doing well from ID standpoint
[2017-11-22] MEDS: Hypromellose 0.3% Opth Gel 10 GM Bottle EACH EYE SCH (21:30)
[2017-11-23] MEDS: Oral Hygiene Kit OROPHARYNG SCH ×3 (06:20→17:31)
[2017-11-23] MEDS: levETIRAcetam 500 MG Tablet PO SCH ×2 (09:43→22:28)
[2017-11-23] MEDS: Escitalopram 10 MG Tablet PO SCH (09:43)
[2017-11-23] MEDS: QUEtiapine 25 MG Tablet PO SCH (09:43)
[2017-11-23] MEDS: amLODIPine 5 MG Tablet PO SCH (09:43)
[2017-11-23] MEDS: Senna/Docusate Sodium 8.6/50 MG Tablet PO SCH ×2 (09:44→22:29)
[2017-11-23] MEDS: Pantoprazole Inj 40 MG Vial IV.PUSH SCH (09:44)
[2017-11-23] MEDS: Chlorhexidine 0.12% Oral Kit 15 ML UDC OROPHARYNG SCH ×2 (09:44→22:28)
--- NOTE | 2017-11-23 11:21 | P.PN ---
Physical Exam Vital signs: Vital Signs 11/22/17 12:00 11/22/17 16:00 11/22/17 20:00 Temperature 98.5 F 98.2 F 98.2 F Pulse Rate 105 H 97 H 104 H Respiratory Rate 14 16 16 Blood Pressure 137/59 L 121/55 L 144/65 H Pulse Oximetry 94 L 96 96 11/23/17 00:00 11/23/17 04:00 11/23/17 08:00 Temperature 98.3 F 98.6 F 98.5 F Pulse Rate 92 H 94 H 92 H Respiratory Rate 18 18 16 Blood Pressure 127/60 126/60 123/58 L Pulse Oximetry 96 96 94 L Intake & Output 11/22/17 11/23/17 11/23/17 18:59 06:59 18:59 Intake Total 240 / 240 120 / 120 Output Total 400 / 400 400 / 400 Balance -160 / -160 -280 / -280 Weight 77.5 kg Intake: IV 240 / 240 120 / 120 Ancef Inj 2,000 MG In NS Inj 240 / 240 120 / 120 100 ML @ 240 mls/hr IV.SIG Q8H JONATHON Rx#:[id number] Output: Urine 400 / 400 400 / 400 Other: # Voids 2 1 Date of Last Bowel Movement 11/21/17 11/21/17 11/21/17 Narrative: Subjective AFVSS. No acute events overnight. Expressive aphasia, improving. Sleepy today Moving RUE and RLE. Follows some simple commands. Off restraints so far with close monitoring as high risk of falls. On seroquel Physical Exam GENERAL: Middle age male resting in bed in [facility]. Off restraints SKIN: Warm and dry. HEENT: PERRLA. HEART: Tachycardic with 2/6 CRISTINA. LUNGS: CTAB. no wheezes or crackles. ABDOMEN: +BS, soft, NT, ND. EXTREMITIES: No LE edema. 2+ pedal pulses. NEURO: Awake and alert. Expressive aphasia. Moving LUE and LLE when asked. Some spontaneous movement of RUE and RLE. Favors the L side but will track to the right. Assessment and Plan 31 year old male with history of IVDU admitted 11/04 after he was found on the floor of his apartment altered with right-sided hemiparesis. The patient had originally presented to the ER on 10/30 with fevers and back pain. At that visit , MRI of the back was negative and he was discharged home. Blood cultures ended up returning positive for MSSA in 4 out of the 4 bottles. The patient was attempted to be contacted but unfortunately he could not be reached. Upon presentation back to the ED, CT brain demonstrated a small amount of subarachnoid blood and small areas of decreased density suggestive of acute infarcts, and MRI confirmed multiple small areas of infarct. 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 He was also found to have an INR of 9.8 with a concern that the IV drugs he was using were contaminated. He was transfused 4 units of FFP and FEIBA with normalization of his INR. He was intubated on 11/05 for acute respiratory failure, self-extubated 11/07 with subsequent reintubation later that day, and has since been extubated on 11/13. Infectious MSSA bacteremia [place] AV endocarditis Septic emboli Pneumonia Lactic acidosis - resolved - Blood cultures from 10/30, 11/04, 11/05, 11/06, and 11/07 + for MSSA - Repeat blood culture from 11/08, 11/09, and 11/11 NGTD - WBC normal - 2D echo demonstrating EF of 60-65% and a 1.7 x 1.0 cm large vegetation on the aortic valve with severe AV regurgitation - ID following - On cefazolin and Rifampin until 12/18 - Place PICC line Respiratory Acute respiratory failure - resolved Aspiration PNA MSSA sputum - Extubated since 11/13 - CXR 11/16 w/ findings suggestive of pulmonary edema - Supplemental O2 to maintain sats >92% - Completed course of Levaquin for aspiration - Bronchodilators Cardiovascular Cardiogenic shock Severe AV regurgitation Hypertension - Continue amlodipine 5 mg 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 Subarachnoid bleed - resolved IVDU Seizures Fall 11/17 - Imaging: * Head CT 11/04 with new infarct R parietal lobe, faint subarachnoid hemorrhage over high parietal convex bilaterally * Head and neck CTA negative * MRI 11/04 with multiple infarcts suggesting embolic occlusion * Repeat head CT 11/05 with new large area of edema in L MCA territory with no significant mass effect or midline shift, cerebellar areas of edema, and apparent resolution of SAH * Repeat head CT 11/06 and 11/12 with stable edema, no new hemorrhage or infarct * MRI brain 11/13 showing evolving bilateral areas of infarction with mild mass effect on L lateral ventricle * EEG 11/04 w/ moderate diffuse encephalopathy but no seizure activity * Repeat EEG 11/12 abnormal but no apparent evidence of epileptiform features * CT head 11/17 after patient fell out of bed showing evolving left MCA territory and R parietal lobe infarcts with localized mass effect and probably petechial hemorrhage. No significant midline shift - Neurosurgery consulted, no surgical intervention at this time - Neurology following, ready for rehab neuro-mcdaniels - Continue Keppra BID - PT recommending rehab - ST recommending pureed, thin liquids - add seroquel Heme Elevated INR at 9.8 - resolved Salicylate elevation Anemia - Elevated INR likely secondary to IV drug contamination - Corrected after 4 units FFP and FEIBA - Anemia likely secondary to acute illness - H&H stable - Hemodynamically stable - No signs of acute bleeding DVT prophylaxis: holding pharmacologic DVT prophylaxis due to risks of hemorrhagic conversion GI prophylaxis: PPI Disposition: Transfer to med/surg Discussed 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 Monitor closely as nacho risk of falls. - Urinary Catheter Management Indwelling Urethral Catheter Cath placed during this visit: no Reason for continuing: Not indwelling catheter Condom Cath placed during this visit: yes Reason for continuing: Not indwelling catheter Insertion date: 11/12/17 Straight Cath placed during this visit: no Reason for continuing: Not indwelling catheter Results - Labs CBC & Chem 7: 11/18/17 06:00 11/18/17 06:00 Assessment and Plan - Assessment (1) Endocarditis Code(s): I38 - Endocarditis, valve unspecified Status: Acute (2) Sepsis Code(s): A41.9 - Sepsis, unspecified organism Status: Acute (3) Stroke, embolic Code(s): I63.9 - Cerebral infarction, unspecified Status: Acute (4) IV drug abuse Code(s): F19.10 - Other psychoactive substance abuse, uncomplicated Status: Acute (5) MSSA bacteremia Code(s): R78.81 - Bacteremia Status: Acute (2) Sepsis Qualifiers: Sepsis type: sepsis due to unspecified organism Qualified Code(s): A41.9 - Sepsis, unspecified organism
[2017-11-23] MEDS: Hypromellose 0.3% Opth Gel 10 GM Bottle EACH EYE SCH (22:28)
[2017-11-24] MEDS: Oral Hygiene Kit OROPHARYNG SCH ×3 (01:32→17:03)
--- NOTE | 2017-11-24 03:24 | CT ---
EXAM DATE: 11/24/2017 3:06 AM EDT AGE/SEX: 31 years / Male INDICATIONS: Trauma; fall. CLINICAL DATA: This is the patient's initial encounter. Patient reports that signs and symptoms have been present for 1 day and indicates a pain score of 3/10. MEDICAL/SURGICAL HISTORY: HIV. Stroke. IV drug None. RADIATION DOSE: 52.13 CTDI (mGy) COMPARISON: [facility] [place], CT HEAD W/O CONTRAST, 11/17/2017. [facility] [place], MR HEAD W & W/O CONTRAST, 11/13/2017. . TECHNIQUE: CT of the head without contrast. Using automated exposure control and adjustment of the mA and/or kV according to patient size, radiation dose was kept as low as reasonably achievable to ob tain optimal diagnostic quality images. DICOM format image data is available electronically for revi ew and comparison. FINDINGS: Cerebrum: The ventricles are normal in size. There is persistent edema in the left frontal and parie keith high and mid convexity and extending into the left basal ganglia region. There is also stable fabricio ma in the right parietal high convexity. No midline shift, mass lesion, hemorrhage. No extraaxial fl uid collections are seen. Posterior Fossa: The cerebellum and brainstem demonstrate no acute abnormality. The 4th ventricle is midline. The cerebellopontine angle is within normal limits. Extracranial: The visualized sinuses are clear. Skull: The calvaria is intact. No skull fracture. CONCLUSION: Stable head CT with bilateral parietal and left frontal lobe edema reportedly related to recent infar cts. There is no midline shift or herniation. . Electronically signed by: Yossi Bello MD 11/24/2017 3:22 AM EDT
[2017-11-24] MEDS: Escitalopram 10 MG Tablet PO SCH (08:28)
[2017-11-24] MEDS: levETIRAcetam 500 MG Tablet PO SCH ×2 (08:28→21:16)
[2017-11-24] MEDS: Pantoprazole Inj 40 MG Vial IV.PUSH SCH (08:28)
[2017-11-24] MEDS: QUEtiapine 25 MG Tablet PO SCH (08:28)
[2017-11-24] MEDS: amLODIPine 5 MG Tablet PO SCH (08:28)
[2017-11-24] MEDS: Chlorhexidine 0.12% Oral Kit 15 ML UDC OROPHARYNG SCH ×2 (08:29→21:15)
[2017-11-24] MEDS: Senna/Docusate Sodium 8.6/50 MG Tablet PO SCH ×2 (08:29→21:16)
--- NOTE | 2017-11-24 08:37 | P.PN ---
Physical Exam Vital signs: Vital Signs 11/23/17 12:00 11/23/17 16:00 11/23/17 20:00 Temperature 98.5 F 99.0 F 98.7 F Pulse Rate 107 H 106 H 94 H Respiratory Rate 16 16 17 Blood Pressure 120/56 L 121/58 L 122/59 L Pulse Oximetry 95 96 95 11/24/17 00:00 11/24/17 04:00 Temperature 98.6 F 98.7 F Pulse Rate 92 H 92 H Respiratory Rate 17 17 Blood Pressure 121/58 L 129/61 Pulse Oximetry 95 Intake & Output 11/23/17 11/24/17 11/24/17 18:59 06:59 18:59 Intake Total 240 / 240 120 / 120 Output Total 400 / 400 Balance -160 / -160 120 / 120 Weight 77.4 kg Intake: IV 240 / 240 120 / 120 Ancef Inj 2,000 MG In NS Inj 240 / 240 120 / 120 100 ML @ 240 mls/hr IV.SIG Q8H JONATHON Rx#:[id number] Output: Urine 400 / 400 Other: # Voids 3 # Incontinent Voids 2 Date of Last Bowel Movement 11/21/17 11/21/17 # Incontinent Bowel Movements 1 Narrative: Subjective AFVSS. No acute events overnight. Expressive aphasia, improving. He is agitated on and off however she is off restraints so far. Moving RUE and RLE. Follows some simple commands. Off restraints so far with close monitoring as high risk of falls. On seroquel Physical Exam GENERAL: Middle age male resting in bed in [facility]. Off restraints SKIN: Warm and dry. HEENT: PERRLA. HEART: Tachycardic with 2/6 CRISTINA. LUNGS: CTAB. no wheezes or crackles. ABDOMEN: +BS, soft, NT, ND. EXTREMITIES: No LE edema. 2+ pedal pulses. NEURO: Awake and alert. Expressive aphasia. Moving LUE and LLE when asked. Some spontaneous movement of RUE and RLE. Favors the L side but will track to the right. Assessment and Plan 31 year old male with history of IVDU admitted 11/04 after he was found on the floor of his apartment altered with right-sided hemiparesis. The patient had originally presented to the ER on 10/30 with fevers and back pain. At that visit , MRI of the back was negative and he was discharged home. Blood cultures ended up returning positive for MSSA in 4 out of the 4 bottles. The patient was attempted to be contacted but unfortunately he could not be reached. Upon presentation back to the ED, CT brain demonstrated a small amount of subarachnoid blood and small areas of decreased density suggestive of acute infarcts, and MRI confirmed multiple small areas of infarct. 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 He was also found to have an INR of 9.8 with a concern that the IV drugs he was using were contaminated. He was transfused 4 units of FFP and FEIBA with normalization of his INR. He was intubated on 11/05 for acute respiratory failure, self-extubated 11/07 with subsequent reintubation later that day, and has since been extubated on 11/13. Infectious MSSA bacteremia [place] AV endocarditis Septic emboli Pneumonia Lactic acidosis - resolved - Blood cultures from 10/30, 11/04, 11/05, 11/06, and 11/07 + for MSSA - Repeat blood culture from 11/08, 11/09, and 11/11 NGTD - WBC normal - 2D echo demonstrating EF of 60-65% and a 1.7 x 1.0 cm large vegetation on the aortic valve with severe AV regurgitation - ID following - On cefazolin and Rifampin until 12/18 - Place PICC line Respiratory Acute respiratory failure - resolved Aspiration PNA MSSA sputum - Extubated since 11/13 - CXR 11/16 w/ findings suggestive of pulmonary edema - Supplemental O2 to maintain sats >92% - Completed course of Levaquin for aspiration - Bronchodilators Cardiovascular Cardiogenic shock Severe AV regurgitation Hypertension - Continue amlodipine 5 mg 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 Subarachnoid bleed - resolved IVDU Seizures Fall 11/17 - Imaging: * Head CT 11/04 with new infarct R parietal lobe, faint subarachnoid hemorrhage over high parietal convex bilaterally * Head and neck CTA negative * MRI 11/04 with multiple infarcts suggesting embolic occlusion * Repeat head CT 11/05 with new large area of edema in L MCA territory with no significant mass effect or midline shift, cerebellar areas of edema, and apparent resolution of SAH * Repeat head CT 11/06 and 11/12 with stable edema, no new hemorrhage or infarct * MRI brain 11/13 showing evolving bilateral areas of infarction with mild mass effect on L lateral ventricle * EEG 11/04 w/ moderate diffuse encephalopathy but no seizure activity * Repeat EEG 11/12 abnormal but no apparent evidence of epileptiform features * CT head 11/17 after patient fell out of bed showing evolving left MCA territory and R parietal lobe infarcts with localized mass effect and probably petechial hemorrhage. No significant midline shift - Neurosurgery consulted, no surgical intervention at this time - Neurology following, ready for rehab neuro-mcdaniels - Continue Keppra BID - PT recommending rehab - ST recommending pureed, thin liquids - add seroquel Heme Elevated INR at 9.8 - resolved Salicylate elevation Anemia - Elevated INR likely secondary to IV drug contamination - Corrected after 4 units FFP and FEIBA - Anemia likely secondary to acute illness - H&H stable - Hemodynamically stable - No signs of acute bleeding DVT prophylaxis: holding pharmacologic DVT prophylaxis due to risks of hemorrhagic conversion GI prophylaxis: PPI Disposition: Transfer to med/surg Discussed 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 Monitor closely as nacho risk of falls. - Urinary Catheter Management Indwelling Urethral Catheter Cath placed during this visit: no Reason for continuing: Not indwelling catheter Condom Cath placed during this visit: yes Reason for continuing: Not indwelling catheter Insertion date: 11/12/17 Straight Cath placed during this visit: no Reason for continuing: Not indwelling catheter Results - Labs CBC & Chem 7: 11/18/17 06:00 11/18/17 06:00 - Imaging Impressions Head CT 11/24/17 02:28 CONCLUSION: Stable head CT with bilateral parietal and left frontal lobe edema reportedly related to recent infarcts. There is no midline shift or herniation. . Assessment and Plan - Assessment (1) Endocarditis Code(s): I38 - Endocarditis, valve unspecified Status: Acute (2) Sepsis Code(s): A41.9 - Sepsis, unspecified organism Status: Acute (3) Stroke, embolic Code(s): I63.9 - Cerebral infarction, unspecified Status: Acute (4) IV drug abuse Code(s): F19.10 - Other psychoactive substance abuse, uncomplicated Status: Acute (5) MSSA bacteremia Code(s): R78.81 - Bacteremia Status: Acute (2) Sepsis Qualifiers: Sepsis type: sepsis due to unspecified organism Qualified Code(s): A41.9 - Sepsis, unspecified organism
--- NOTE | 2017-11-24 09:10 | P.PNNEU ---
Subjective Active Medications: Active Medications Acetaminophen (Tylenol) 650 mg PO Q6H PRN PRN Reason: TEMPERATURE > 101 F Last Admin: 11/12/17 01:19 Dose: 650 mg Albuterol (Albuterol Neb (Prn)) 2.5 mg NEB Q2HR NEB PRN PRN Reason: DYSPNEA Amlodipine Besylate (Norvasc) 5 mg PO DAILY [facility] Last Admin: 11/24/17 08:28 Dose: 5 mg Artificial Tears (Genteal Severe Dry Eye Relief 0.3% Opth Gel) 1 drops EACH EYE HS [facility] Last Admin: 11/23/17 22:28 Dose: Not Given Chlorhexidine Gluconate (Peridex 0.12% Oral Kit) 15 ml OROPHARYNG BID@0800, 2000 [facility] Last Admin: 11/24/17 08:29 Dose: Not Given Clonidine HCl (Catapres) 0.1 mg PO Q6H PRN PRN Reason: SBP>160, DBP>90 Escitalopram Oxalate (Lexapro) 10 mg PO DAILY [facility] Last Admin: 11/24/17 08:28 Dose: 10 mg Flumazenil (Romazecon Inj) 0.2 mg IV.PUSH Q1M PRN PRN Reason: OVERSEDATION Hyoscyamine (Levsin Liq) 0.125 mg SL Q4H PRN PRN Reason: SECRETIONS Cefazolin Sodium 2,000 mg/ (Sodium Chloride) 120 mls @ 240 mls/hr IV.SIG Q8H [facility] Last Admin: 11/24/17 08:28 Dose: 100 mls/hr Labetalol HCl (Trandate Inj) 10 mg IV.PUSH Q1H PRN PRN Reason: SYS BP GREATER THAN 160 MMHG Levetiracetam (Keppra) 1,000 mg PO BID [facility] Last Admin: 11/24/17 08:28 Dose: 1,000 mg Nitroglycerin (Nitro-Bid 2% Oint) 1 inch TOPICAL Q6HR PRN PRN Reason: SBP>160, DBP>90 Ondansetron HCl (Zofran Odt) 4 mg PO Q6H PRN PRN Reason: NAUSEA OR VOMITING Pantoprazole Sodium (Protonix Inj) 40 mg IV.PUSH DAILY [facility] Last Admin: 11/24/17 08:28 Dose: 40 mg Potassium Bicarb/Potassium Chloride (K-Lyte Cl Eff) 50 meq PO ONCE [facility] Last Admin: 11/04/17 21:31 Dose: 50 meq Quetiapine Fumarate (Seroquel) 25 mg PO DAILY [facility] Last Admin: 11/24/17 08:28 Dose: 25 mg Rifampin (Rifampin) 300 mg PO Q12HR [facility] Last Admin: 11/24/17 08:28 Dose: 300 mg Senna/Docusate Sodium (Liv-Colace) 1 tab PO BID [facility] Last Admin: 11/24/17 08:29 Dose: Not Given Sodium Chloride (Ns Flush) 2 ml IV.FLUSH BID [facility] Last Admin: 11/24/17 08:29 Dose: 2 ml Sodium Chloride (Ns Flush) 2 ml IV.FLUSH PRN PRN PRN Reason: FLUSH AFTER USING IV ACCESS Allergies/Adverse Reactions: Allergies Allergy/AdvReac Type Severity Reaction Status Date / Time No Known Allergies Allergy Unverified 10/30/17 21:54 Physical Exam Vital signs: Vital Signs 11/23/17 12:00 11/23/17 16:00 11/23/17 20:00 Temperature 98.5 F 99.0 F 98.7 F Pulse Rate 107 H 106 H 94 H Respiratory Rate 16 16 17 Blood Pressure 120/56 L 121/58 L 122/59 L Pulse Oximetry 95 96 95 11/24/17 00:00 11/24/17 04:00 11/24/17 08:00 Temperature 98.6 F 98.7 F 98.5 F Pulse Rate 92 H 92 H 101 H Respiratory Rate 17 17 16 Blood Pressure 121/58 L 129/61 120/56 L Pulse Oximetry 95 97 Intake & Output 11/23/17 11/24/17 11/24/17 18:59 06:59 18:59 Intake Total 240 / 240 120 / 120 Output Total 400 / 400 Balance -160 / -160 120 / 120 Weight 77.4 kg Intake: IV 240 / 240 120 / 120 Ancef Inj 2,000 MG In NS Inj 240 / 240 120 / 120 100 ML @ 240 mls/hr IV.SIG Q8H [facility] Rx#:[id number] Output: Urine 400 / 400 Other: # Voids 3 # Incontinent Voids 2 Date of Last Bowel Movement 11/21/17 11/21/17 # Incontinent Bowel Movements 1 Narrative: moving r side a lot better and taling better - Urinary Catheter Management Indwelling Urethral Catheter Cath placed during this visit: no Reason for continuing: Not indwelling catheter Condom Cath placed during this visit: yes Reason for continuing: Not indwelling catheter Insertion date: 11/12/17 Straight Cath placed during this visit: no Reason for continuing: Not indwelling catheter Review/Management - Review/Management Plan: imp mri 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 when off sedatives? -- 11/13/17 no change leg tremor vs sz yest ct stable eeg neg sz on keppra pk to dc sedatives today on keppa 1000 bid 11/15/17 no sz loks well on keppra eeg neg stable neuro left mca cva endocarditis ready for rehab neurowise 11/18/17 dong better oob with sitter in room to prevent falls ? to floor? 11/21/17 looks much better really should be in a chair add lexapro to seroquel may calm him down some he did not have PT see him yesterday and they should work with him daily and get oob to chair he should be less agitated if in chair but hi needs sitter to prevent him form getting up on own 11/24/17 dong well overall impulsive gets agitated if needs to pee ow really much improved cont PT
[2017-11-24] MEDS: Hypromellose 0.3% Opth Gel 10 GM Bottle EACH EYE SCH (21:19)
[2017-11-25] MEDS: Oral Hygiene Kit OROPHARYNG SCH ×4 (00:35→17:27)
[2017-11-25] MEDS: Senna/Docusate Sodium 8.6/50 MG Tablet PO SCH ×2 (09:23→20:29)
[2017-11-25] MEDS: QUEtiapine 25 MG Tablet PO SCH (09:23)
[2017-11-25] MEDS: levETIRAcetam 500 MG Tablet PO SCH ×2 (09:23→20:29)
[2017-11-25] MEDS: amLODIPine 5 MG Tablet PO SCH (09:23)
[2017-11-25] MEDS: Escitalopram 10 MG Tablet PO SCH (09:23)
[2017-11-25] MEDS: Chlorhexidine 0.12% Oral Kit 15 ML UDC OROPHARYNG SCH ×2 (09:24→20:28)
[2017-11-25] MEDS: Pantoprazole Inj 40 MG Vial IV.PUSH SCH (09:24)
[2017-11-25 09:28] LABS: Baso # (Auto) 0.1 th/mm3 (0.0-0.2); Baso % (Auto) 1.3 % (0.0-2.0); Eos # (Auto) 0.3 th/mm3 (0.0-0.4); Eos % (Auto) 4.4 % (0.0-4.0); Hematocrit 29.1 % (39.0-51.0); Hemoglobin 9.7 gm/dL (13.0-17.0); Lymph % (Auto) 27.9 % (9.0-44.0); Mean Corpuscular HGB Conc 33.3 % (32.0-36.0); Mean Corpuscular Hemoglobin 28.5 pg (27.0-34.0); Mean Corpuscular Volume 85.5 fL (80.0-100.0); Mean Platelet Volume 9.2 fL (7.0-11.0); Mono # (Auto) 0.6 th/mm3 (0.0-0.9); Mono % (Auto) 7.7 % (0.0-8.0); Neut # (Auto) 4.3 th/mm3 (1.8-7.7); Neut % (Auto) 58.7 % (16.0-70.0); Platelet Count 241 th/mm3 (150-450); Red Cell Distribution Width 14.1 % (11.6-17.2); White Blood Count 7.3 th/mm3 (4.0-11.0)
[2017-11-25 09:51] LABS: Albumin 2.4 g/dL (3.4-5.0); Anion Gap 8 meq/L (5-15); Aspartate Aminotransferase 15 U/L (15-37); Blood Urea Nitrogen 12 mg/dL (7-18); Calcium 8.6 mg/dL (8.5-10.1); Carbon Dioxide 26.3 meq/L (21.0-32.0); Chloride 103 meq/L (98-107); Glomerular Filtration Rate Greater Than 89 mL/min (>89); Glucose,Random 79 mg/dL (74-106); Potassium 3.6 meq/L (3.5-5.1); Sodium 137 meq/L (136-145)
[2017-11-25 09:56] LABS: Alanine Aminotransferase 9 U/L (12-78); Alkaline Phosphatase 59 U/L (45-117); Total Protein 8.8 g/dL (6.4-8.2)
--- NOTE | 2017-11-25 10:58 | P.PNID ---
Subjective Remarks: Patient is a 31-year-old male, who initially presented to [facility] emergency room October 30 complaining of 3 day history of headache. He gave a history of IV drug use. He was not febrile during that visit. WBC was normal. He underwent CT of the brain which was negative. Also underwent MRI of the thoracic and lumbar spine which were both negative for any infection. 2 blood cultures were done at that time and he was discharged. He came back to the hospital after his friends found him on the kitchen floor. He was reportedly unable to move his right side. And he was also noted to have some difficulty speaking. He remains afebrile. His white count is elevated. His CT of the head is now showing some findings in the right parietal area, as well as faint subarachnoid hemorrhage. CTA of the neck is negative. He has evidence of right-sided weakness, as well as expressive aphasia. The 2 blood cultures done on his ED visit is now reported as growing MSSA. Infectious disease consultation has been requested to evaluate the patient. Notes reviewed D/W RN IV access L arm not very good Doing well Temps ok Blood culture from 11/09 and 11/11 has no growth. BC (+) 11/04-11/07 Sputum with MSSA 11/05 Not a surgical candidate per CTS evaluation. Echocardiogram: The left ventricular systolic function is normal with an estimated ejection fraction in the range of 60-65%. Trace mitral valve regurgitation. Large vegetation noted on the aortic valve (1.7cm x 1.0cm) Mild obstruction of the aortic valve due to vegetation with a mean gradient of 11 mmHg Severe eccentric aortic regurgitation There is trace tricuspid valve regurgitation. Antibiotics: Cefazolin Rifampin [facility] Past Medical History: Diabetes Hypertension IVDU Allergies/Adverse Reactions: Allergies No Known Allergies Allergy (Unverified 10/30/17 21:54) Objective Vital Signs 11/24/17 12:00 11/24/17 16:00 11/24/17 20:00 Temperature 97.5 F L 97.7 F 98.5 F Pulse Rate 107 H 98 H 103 H Respiratory Rate 16 18 16 Blood Pressure 108/56 L 122/57 L 125/58 L Pulse Oximetry 97 96 95 11/25/17 00:00 11/25/17 04:00 11/25/17 07:48 Temperature 98.3 F 98.4 F 98.9 F Pulse Rate 94 H 92 H 96 H Respiratory Rate 18 17 14 Blood Pressure 121/60 106/53 L 101/46 L Pulse Oximetry 97 97 95 11/25/17 09:00 Temperature 98.3 F Pulse Rate 93 H Respiratory Rate 20 Blood Pressure 127/58 L Pulse Oximetry 94 L Intake & Output 11/24/17 11/25/17 11/25/17 18:59 06:59 18:59 Intake Total 240 / 240 720 / 720 120 / 120 Output Total 800 / 800 1075 / 1075 300 / 300 Balance -560 / -560 -355 / -355 -180 / -180 Weight 77.4 kg Intake: IV 240 / 240 120 / 120 Ancef Inj 2,000 MG In NS Inj 240 / 240 120 / 120 100 ML @ 240 mls/hr IV.SIG Q8H JONATHON Rx#:[id number] Oral 720 / 720 Output: Urine 800 / 800 1075 / 1075 300 / 300 Other: # Voids 3 # Incontinent Voids 1 Date of Last Bowel Movement 11/21/17 Lab - Hematology Results 11/25/17 07:35 WBC 7.3 RBC 3.40 L Hgb 9.7 L Hct 29.1 L MCV 85.5 MCH 28.5 MCHC 33.3 RDW 14.1 Plt Count 241 D MPV 9.2 Neut % (Auto) 58.7 Lymph % (Auto) 27.9 [place] % (Auto) 7.7 Eos % (Auto) 4.4 H Baso % (Auto) 1.3 Neut # (Auto) 4.3 Lymph # (Auto) 2.0 [place] # (Auto) 0.6 Eos # (Auto) 0.3 Baso # (Auto) 0.1 WBC Differential . Differential Comment Auto diff final Lab - Chemistry Results 11/25/17 07:35 Sodium 137 Potassium 3.6 Chloride 103 Carbon Dioxide 26.3 Anion Gap 8 BUN 12 Creatinine 0.75 Estimated GFR Greater than 89 Random Glucose 79 Calcium 8.6 Total Bilirubin 0.4 AST 15 ALT 9 L Alkaline Phosphatase 59 Total Protein 8.8 H Albumin 2.4 L Imaging: ITS Impressions Head CTA 11/04/17 05:39 CONCLUSION: 1. Patient is left vertebral dominant. 2. Otherwise, intracranial vessels are all patent without embolic or aneurysmal disease. Neck CTA 11/04/17 05:39 CONCLUSION: 1. Patient is left vertebral dominant. 2. Otherwise, arch and cervical vessels are patent throughout. Head MRI 11/13/17 00:00 CONCLUSION: 1. Evolving bilateral areas of infarction. There is mild mass effect on the left lateral ventricle particularly the posterior horn which is effaced. Chest X-Ray 11/16/17 06:00 CONCLUSION: Increasing indistinctness and engorgement of the central bronchopulmonary markings suggestive of pulmonary edema. Knee X-Ray 11/17/17 00:00 CONCLUSION: No acute findings. Shoulder X-Ray 11/17/17 00:00 CONCLUSION: No acute bony abnormalities. Head CT 11/24/17 02:28 CONCLUSION: Stable head CT with bilateral parietal and left frontal lobe edema reportedly related to recent infarcts. There is no midline shift or herniation. . Physical Exam: GENERAL: Awakens easily, following commands. Has expressive aphasia SKIN: Warm and dry. No generalized rash. HEAD: Atraumatic. Normocephalic. No temporal wasting, or tenderness. EYES: [place] conjunctiva. Has petechia on L conjunctiva. Pupils equal, round and reactive to light. No scleral icterus. OROPHARYNX: Moist mucosa. NECK: Trachea midline. Supple and not tender, no meningeal signs CARDIOVASCULAR: Regular rate and rhythm. Systolic murmur at the left sternal border. RESPIRATORY: Decreased at bases ABDOMEN: Soft, nondistended. Bowel sounds present and normoactive.Not tender EXTREMITIES: No clubbing, cyanosis. No joint effusion. NEUROLOGICAL: Not moving the right upper and lower extremity. PSYCHIATRIC: Unable to assess LINE: PIV no evidence of infection Assessment and Plan - Plan Impression MSSA sepsis L sided endocarditis AV, due to IVDU - has large vegetation AV, causing mild obstruction CVA with R sided weakness, aphasia, due to embolic event from his IE Persistent fevers. Resolved Respiratory failure, has bilateral infiltrates - doing well post extubation MSSA PNA, S/P Rx Recommendation Continue Ancef Continue Rifampin for synergy Labs weekly while on Abx: CBC, creatinine and LFT Will need long course of IV Abx - anticipate Abx until Dec 18 PICC Monitor progress Per CTS not surgical candidate Clinically doing well from ID standpoint D/W RN
--- NOTE | 2017-11-25 13:08 | P.NPEVAL ---
Patient History - Record/History Review Reason for Referral: The patient is a 31 year old male with history of IVDU admitted 11/04 after he was found on the floor of his apartment altered with right-sided hemiparesis. The patient had originally presented to the ER on 10/30 with fevers and back pain. At that visit, MRI of the back was negative and he was discharged home. Blood cultures ended up returning positive for MSSA in 4 out of the 4 bottles. The patient was attempted to be contacted but unfortunately he could not be reached. Upon presentation back to the ED, CT brain demonstrated a small amount of subarachnoid blood and small areas of decreased density suggestive of acute infarcts, and MRI confirmed multiple small areas of infarct. He was admitted to the rehabilitation aide/scheduler service where bedside echocardiogram revealed a large mobile mass ont he aortic valve with associated severe AV regurgitation. He was also found to have an INR of 9.8 with a concern that the IV drugs he was using were contaminated. He was transfused 4 units of FFP and FEIBA with normalization of his INR. He was intubated on 11/05 for acute respiratory failure, self-extubated 11/07 with subsequent reintubation later that day, and has since been extubated on 11/13. He is referred for baseline neurobehavioral status examination to assess cognitive, behavioral and emotional aspects of the injury and to provide treatment recommendations. PMFSH - History History Provided By: Family Member - Medical / Surgical Hx Neg / Unobtainable Medical Problems Denied: Unable to Obtain - Medical History Medical History: Medical History (Last Reviewed 11/25/17 @ 12:47 by Elaina Boyce) IV drug user Diabetes Hypertension - Tobacco History Second Hand Smoke Exposure: Yes Tobacco Use In Past 30 Days: Yes Smoking Status: Current every day smoker Tobacco Type: Cigarettes - Alcohol History How Often Do You Have a Drink Containing Alcohol: 4 or more times a week - Substance Use History Substance History: Active Abuse - Substance Use Type Heroin Status: Active Route Used: Intravenously - Travel History Recent Travel in the [place] Within the Last 8 Weeks: No Recent Travel Out of the Country Within the Last 8 Weeks: No - Immunization History Tetanus Immunization: <5 Years Hx Influenza Vaccine This Season: Unable to Assess Medications Active Medications Acetaminophen (Tylenol) 650 mg PO Q6H PRN PRN Reason: TEMPERATURE > 101 F Last Admin: 11/12/17 01:19 Dose: 650 mg Albuterol (Albuterol Neb (Prn)) 2.5 mg NEB Q2HR NEB PRN PRN Reason: DYSPNEA Amlodipine Besylate (Norvasc) 5 mg PO DAILY [facility] Last Admin: 11/25/17 09:23 Dose: 5 mg Artificial Tears (Genteal Severe Dry Eye Relief 0.3% Opth Gel) 1 drops EACH EYE HS [facility] Last Admin: 11/24/17 21:19 Dose: Not Given Chlorhexidine Gluconate (Peridex 0.12% Oral Kit) 15 ml OROPHARYNG BID@0800, 2000 [facility] Last Admin: 11/25/17 09:24 Dose: Not Given Clonidine HCl (Catapres) 0.1 mg PO Q6H PRN PRN Reason: SBP>160, DBP>90 Escitalopram Oxalate (Lexapro) 10 mg PO DAILY [facility] Last Admin: 11/25/17 09:23 Dose: 10 mg Flumazenil (Romazecon Inj) 0.2 mg IV.PUSH Q1M PRN PRN Reason: OVERSEDATION Hyoscyamine (Levsin Liq) 0.125 mg SL Q4H PRN PRN Reason: SECRETIONS Cefazolin Sodium 2,000 mg/ (Sodium Chloride) 120 mls @ 240 mls/hr IV.SIG Q8H [facility] Stop: 12/18/17 23:00 Last Infusion: 11/25/17 11:29 Dose: Infused Labetalol HCl (Trandate Inj) 10 mg IV.PUSH Q1H PRN PRN Reason: SYS BP GREATER THAN 160 MMHG Levetiracetam (Keppra) 1,000 mg PO BID [facility] Last Admin: 11/25/17 09:23 Dose: 1,000 mg Nitroglycerin (Nitro-Bid 2% Oint) 1 inch TOPICAL Q6HR PRN PRN Reason: SBP>160, DBP>90 Ondansetron HCl (Zofran Odt) 4 mg PO Q6H PRN PRN Reason: NAUSEA OR VOMITING Pantoprazole Sodium (Protonix Inj) 40 mg IV.PUSH DAILY [facility] Last Admin: 11/25/17 09:24 Dose: 40 mg Potassium Bicarb/Potassium Chloride (K-Lyte Cl Eff) 50 meq PO ONCE [facility] Last Admin: 11/04/17 21:31 Dose: 50 meq Quetiapine Fumarate (Seroquel) 25 mg PO DAILY [facility] Last Admin: 11/25/17 09:23 Dose: 25 mg Rifampin (Rifampin) 300 mg PO Q12HR [facility] Last Admin: 11/25/17 09:23 Dose: 300 mg Senna/Docusate Sodium (Liv-Colace) 1 tab PO BID [facility] Last Admin: 11/25/17 09:23 Dose: 1 tab Sodium Chloride (Ns Flush) 2 ml IV.FLUSH BID [facility] Last Admin: 11/25/17 09:24 Dose: 2 ml Sodium Chloride (Ns Flush) 2 ml IV.FLUSH PRN PRN PRN Reason: FLUSH AFTER USING IV ACCESS Mental Status Assessment - Mental Status Orientation: unable to assess: Self, Place, Time, Situation Mental Status: Impaired: Thought processing, Language/interactions, Attention, Learning/memory, Problem-solving Absent: Hallucinations, Delusions Adjustment/Coping Assessment - Adjustment/Coping Adjustment/Coping: Severe: Awareness, Insight, Not Assessed: Depression, Anxiety - Observation In terms of emotional functioning, the patient demonstrated significant challenges. This patient demonstrated no signs of agitation, impulsivity or disinhibition. Assessment of underlying formal thought disorder or psychosis was not able to be determined. There was no evidence of depression or anxiety. Thought content appeared free from suicidal, homicidal or paranoid ideation, and thought processes were bradyphrenic. The patients mood was apathetic, and his affect was flat. The patient appears to possess minimal insight and awareness into their situation and within the limits of this brief evaluation, poor judgment. - Goals/Team Members LTG Status: Deferred STG Status: Deferred Team Members: Neuropsychologist Behavior - Behavior Agitation: Mild Treatment Engagement: Minimal - Observation Behaviorally, the patient demonstrated no signs of agitation, impulsivity or disinhibition. However, he is being monitored for agitation/restlessness and he is on the borderline for mild agitation. He has Seroquel 25 BID to facilitate management. - Goals LTG Status: Deferred STG Status: Deferred - Team Members Team Members: Neuropsychologist Feedback/Education - Barriers to Treatment Aphasia, Awareness, Capacity to Self-Determine, Communication Diagnosis/Discharge Plan - Diagnosis (1) Major neurocognitive disorder due to vascular disease, without behavioral disturbance, severe Status: Acute Impression: This patient is a 31 year old male with a complicated medical history resulting in stroke due to septic emboli. He is now aphasic and cognitively and neurobehaviorally impaired. Disinhibition Score: 21.00 Aggression Score: 14.00 Lability Score: 14.00 Agitated Behavior Total Score: 18 Maximizing Acute Care Outcome: It is recommended that the patient be monitored for emergent behavioral impulsivity as the medical condition evolves. This patients neuropathological challenges may limit rehabilitation potential going forward, and these challenges will require specialized therapeutic skills to maximize outcome. Additionally, the patients family is experiencing ongoing issues of adjustment given the traumatic nature of the injury, and they may benefit from ongoing psychological assistance. At this point in the recovery process, the patient does not have cognitive capacity as the patient is unable to understand a situation and its likely consequences, nor is the patient able to manipulate information rationally. Cognitive capacity will be assessed throughout the recovery process. - Discharge Planning Anticipated Problems: Ongoing areas of concern will include behavioral impulsivity, lack of insight and judgment, which may or may not improve with time and treatment. Presently , the patient is not following greater than one-step commands. Given the severity of the patient's injuries it is my clinical opinion that this patient will be unable to return to any type of productive employment for at least one year, perhaps longer and likely never. This patient is not considered safe to discharge home without supervision. Treatment Plan: This clinician will continue to follow with you throughout the course of this patients acute care treatment, and I will be available to meet with the patient s family/support system to facilitate their understanding and the ongoing care of their family member. The goals of neuropsychological intervention shall be both educational and supportive to the family/support system as is deemed clinically appropriate. Thank you for the opportunity to assist in this patients care. Obie Flores, Ph.D., ABPP Board Certified in Clinical Neuropsychology [place] [employer] [place] Licensed Psychologist #[id number]
[2017-11-25] MEDS ORDERED: Heparin Central Flush 100 UNIT/ML 5 ML Vial IV.FLUSH PRN (15:35)
--- NOTE | 2017-11-25 16:30 | P.PN ---
Subjective Interval history: Follow-up on patient with MSSA bacteremia, endocarditis, septic emboli, CVA. Patient seen and examined. Patient's mother Marcie is at the bedside. She is concerned about him having poor oral intake. She states he appears to be improving cognitively. Patient appears comfortable. Discussed with nursing staff, no acute issues noted. Physical Exam Vital signs: Vital Signs 11/24/17 20:00 11/25/17 00:00 11/25/17 04:00 Temperature 98.5 F 98.3 F 98.4 F Pulse Rate 103 H 94 H 92 H Respiratory Rate 16 18 17 Blood Pressure 125/58 L 121/60 106/53 L Pulse Oximetry 95 97 97 11/25/17 07:48 11/25/17 09:00 11/25/17 12:00 Temperature 98.9 F 98.3 F 98.6 F Pulse Rate 96 H 93 H 69 Respiratory Rate 14 20 18 Blood Pressure 101/46 L 127/58 L 126/65 Pulse Oximetry 95 94 L 95 Intake & Output 11/24/17 11/25/17 11/25/17 18:59 06:59 18:59 Intake Total 240 / 240 720 / 720 240 / 240 Output Total 800 / 800 1075 / 1075 300 / 300 Balance -560 / -560 -355 / -355 -60 / -60 Weight 77.4 kg Intake: IV 240 / 240 240 / 240 Ancef Inj 2,000 MG In NS Inj 240 / 240 240 / 240 100 ML @ 240 mls/hr IV.SIG Q8H JONATHON Rx#:[id number] Oral 720 / 720 Output: Urine 800 / 800 1075 / 1075 300 / 300 Other: # Voids 3 # Incontinent Voids 1 Date of Last Bowel Movement 11/21/17 Narrative: GENERAL: WDWN male patient, INAD. Lethargic but awakens easily. Follows some commands. +Expressive aphasia. SKIN: Warm and dry. No generalized rash. HEAD: Atraumatic. Normocephalic. EYES: Pupils equal and round. No scleral icterus. ENT: No nasal bleeding or discharge. Mucous membranes pink and moist. NECK: Trachea midline. CARDIOVASCULAR: Regular rate and rhythm. +Systolic murmur. RESPIRATORY: No accessory muscle use. Clear to auscultation anteriorly. Breath sounds equal bilaterally. GASTROINTESTINAL: Abdomen soft, non-tender, nondistended. +BS. MUSCULOSKELETAL: Extremities without clubbing, cyanosis, or edema. No obvious deformities. NEUROLOGICAL: Lethargic but awakens easily to voice. Able to spontaneously move left upper and lower extremity. Does not move the right side. + expressive aphasia. PSYCHIATRIC: Calm. - Urinary Catheter Management Indwelling Urethral Catheter Cath placed during this visit: no Reason for continuing: Not indwelling catheter Condom Cath placed during this visit: yes Reason for continuing: Not indwelling catheter Insertion date: 11/12/17 Straight Cath placed during this visit: no Reason for continuing: Not indwelling catheter Results - Labs CBC & Chem 7: 11/25/17 07:35 11/25/17 07:35 Laboratory Results - last 24 hr 11/25/17 11/25/17 07:35 07:35 WBC 7.3 RBC 3.40 L Hgb 9.7 L Hct 29.1 L MCV 85.5 MCH 28.5 MCHC 33.3 RDW 14.1 Plt Count 241 D MPV 9.2 Neut % (Auto) 58.7 Lymph % (Auto) 27.9 [place] % (Auto) 7.7 Eos % (Auto) 4.4 H Baso % (Auto) 1.3 Neut # (Auto) 4.3 Lymph # (Auto) 2.0 [place] # (Auto) 0.6 Eos # (Auto) 0.3 Baso # (Auto) 0.1 WBC Differential . Differential Comment Auto diff final Sodium 137 Potassium 3.6 Chloride 103 Carbon Dioxide 26.3 Anion Gap 8 BUN 12 Creatinine 0.75 Estimated GFR Greater than 89 Random Glucose 79 Calcium 8.6 Total Bilirubin 0.4 AST 15 ALT 9 L Alkaline Phosphatase 59 Total Protein 8.8 H Albumin 2.4 L - Imaging ITS Impressions Head CTA 11/04/17 05:39 CONCLUSION: 1. Patient is left vertebral dominant. 2. Otherwise, intracranial vessels are all patent without embolic or aneurysmal disease. Neck CTA 11/04/17 05:39 CONCLUSION: 1. Patient is left vertebral dominant. 2. Otherwise, arch and cervical vessels are patent throughout. Head MRI 11/13/17 00:00 CONCLUSION: 1. Evolving bilateral areas of infarction. There is mild mass effect on the left lateral ventricle particularly the posterior horn which is effaced. Chest X-Ray 11/16/17 06:00 CONCLUSION: Increasing indistinctness and engorgement of the central bronchopulmonary markings suggestive of pulmonary edema. Knee X-Ray 11/17/17 00:00 CONCLUSION: No acute findings. Shoulder X-Ray 11/17/17 00:00 CONCLUSION: No acute bony abnormalities. Head CT 11/24/17 02:28 CONCLUSION: Stable head CT with bilateral parietal and left frontal lobe edema reportedly related to recent infarcts. There is no midline shift or herniation. . Assessment and Plan - Assessment (1) Endocarditis Code(s): I38 - Endocarditis, valve unspecified Status: Acute (2) Sepsis Code(s): A41.9 - Sepsis, unspecified organism Status: Acute (3) Stroke, embolic Code(s): I63.9 - Cerebral infarction, unspecified Status: Acute (4) IV drug abuse Code(s): F19.10 - Other psychoactive substance abuse, uncomplicated Status: Acute (5) MSSA bacteremia Code(s): R78.81 - Bacteremia Status: Acute - Plan 31 year old male with history of IVDU admitted 11/04 after he was found on the floor of his apartment altered with right-sided hemiparesis. The patient had originally presented to the ER on 10/30 with fevers and back pain. At that visit , MRI of the back was negative and he was discharged home. Blood cultures ended up returning positive for MSSA in 4 out of the 4 bottles. The patient was attempted to be contacted but unfortunately he could not be reached. Upon presentation back to the ED, CT brain demonstrated a small amount of subarachnoid blood and small areas of decreased density suggestive of acute infarcts, and MRI confirmed multiple small areas of infarct. He was admitted to the film waxer service where bedside echocardiogram revealed a large mobile mass ont he aortic valve with associated severe AV regurgitation. He was also found to have an INR of 9.8 with a concern that the IV drugs he was using were contaminated. He was transfused 4 units of FFP and FEIBA with normalization of his INR. He was intubated on 11/05 for acute respiratory failure, self-extubated 11/07 with subsequent reintubation later that day, and has since been extubated on 11/13. Infectious MSSA bacteremia [place] AV endocarditis secondary to IV drug use Septic emboli Pneumonia Lactic acidosis - resolved - Blood cultures from 10/30, 11/04, 11/05, 11/06, and 11/07 + for MSSA - Repeat blood culture from 11/08, 11/09, and 11/11 NGTD - WBC normal - 2D echo demonstrating EF of 60-65% and a 1.7 x 1.0 cm large vegetation on the aortic valve with severe AV regurgitation - ID following, appreciate assistance. PICC line ordered. - On cefazolin and Rifampin until 12/18 - Weekly CBC, creatinine and LFTs Respiratory Acute respiratory failure - resolved Aspiration PNA MSSA sputum - Extubated since 11/13 - CXR 11/16 w/ findings suggestive of pulmonary edema - Supplemental O2 to maintain sats >92% - Completed course of Levaquin for aspiration - Bronchodilators Cardiovascular Cardiogenic shock Severe AV regurgitation Hypertension - Continue amlodipine 5 mg 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 Subarachnoid bleed - resolved IVDU Seizures Fall 11/17 - Imaging: * Head CT 11/04 with new infarct R parietal lobe, faint subarachnoid hemorrhage over high parietal convex bilaterally * Head and neck CTA negative * MRI 11/04 with multiple infarcts suggesting embolic occlusion * Repeat head CT 11/05 with new large area of edema in L MCA territory with no significant mass effect or midline shift, cerebellar areas of edema, and apparent resolution of SAH * Repeat head CT 11/06 and 11/12 with stable edema, no new hemorrhage or infarct * MRI brain 11/13 showing evolving bilateral areas of infarction with mild mass effect on L lateral ventricle * EEG 11/04 w/ moderate diffuse encephalopathy but no seizure activity * Repeat EEG 11/12 abnormal but no apparent evidence of epileptiform features * CT head 11/17 after patient fell out of bed showing evolving left MCA territory and R parietal lobe infarcts with localized mass effect and probably petechial hemorrhage. No significant midline shift. Repeat CT Head 11/24 stable - Neurosurgery consulted, no surgical intervention at this time - Neurology following, ready for rehab neuro-mcdaniels. - Continue Keppra 1000mg BID - Continue on Seroquel and Lexapro - PT recommending rehab - ST recommending regular, thin liquids Heme Elevated INR at 9.8 - resolved Salicylate elevation Anemia - Elevated INR likely secondary to IV drug contamination - Corrected after 4 units FFP and FEIBA - Anemia likely secondary to acute illness - H&H stable - Hemodynamically stable - No signs of acute bleeding DVT prophylaxis: holding pharmacologic DVT prophylaxis due to risks of hemorrhagic conversion GI prophylaxis: PPI Code Status: Full Discussed Condition With: patient, mother at bedside, RN, CM Discharge Planning: PT HAS NO INSURANCE FOR REHAB SERVICES. DISABILITY PAPERWORK WILL BE FILLED PER [facility]. (2) Sepsis Qualifiers: Sepsis type: sepsis due to unspecified organism Qualified Code(s): A41.9 - Sepsis, unspecified organism
[2017-11-25] MEDS: Famotidine 20 MG Tablet PO SCH (20:29)
[2017-11-25] MEDS: Hypromellose 0.3% Opth Gel 10 GM Bottle EACH EYE SCH (20:31)
[2017-11-26] MEDS: Oral Hygiene Kit OROPHARYNG SCH ×4 (01:49→17:53)
[2017-11-26] MEDS: Senna/Docusate Sodium 8.6/50 MG Tablet PO SCH ×2 (10:11→20:56)
[2017-11-26] MEDS: Famotidine 20 MG Tablet PO SCH ×2 (10:11→20:57)
[2017-11-26] MEDS: QUEtiapine 25 MG Tablet PO SCH (10:11)
[2017-11-26] MEDS: amLODIPine 5 MG Tablet PO SCH (10:11)
[2017-11-26] MEDS: levETIRAcetam 500 MG Tablet PO SCH ×2 (10:12→20:56)
[2017-11-26] MEDS: Chlorhexidine 0.12% Oral Kit 15 ML UDC OROPHARYNG SCH ×2 (10:12→20:59)
[2017-11-26] MEDS: Heparin Central Flush 100 UNIT/ML 5 ML Vial IV.FLUSH SCH (10:12)
[2017-11-26] MEDS: Escitalopram 10 MG Tablet PO SCH (10:12)
--- NOTE | 2017-11-26 10:27 | P.PNID ---
Subjective Remarks: Patient is a 31-year-old male, who initially presented to [facility] emergency room October 30 complaining of 3 day history of headache. He gave a history of IV drug use. He was not febrile during that visit. WBC was normal. He underwent CT of the brain which was negative. Also underwent MRI of the thoracic and lumbar spine which were both negative for any infection. 2 blood cultures were done at that time and he was discharged. He came back to the hospital after his friends found him on the kitchen floor. He was reportedly unable to move his right side. And he was also noted to have some difficulty speaking. He remains afebrile. His white count is elevated. His CT of the head is now showing some findings in the right parietal area, as well as faint subarachnoid hemorrhage. CTA of the neck is negative. He has evidence of right-sided weakness, as well as expressive aphasia. The 2 blood cultures done on his ED visit is now reported as growing MSSA. Infectious disease consultation has been requested to evaluate the patient. Notes reviewed D/W RN Has PICC in [facility] (could not locate procedure note) Doing well [facility] (+) 11/04-11/07 Not a surgical candidate per CTS evaluation. Echocardiogram: The left ventricular systolic function is normal with an estimated ejection fraction in the range of 60-65%. Trace mitral valve regurgitation. Large vegetation noted on the aortic valve (1.7cm x 1.0cm) Mild obstruction of the aortic valve due to vegetation with a mean gradient of 11 mmHg Severe eccentric aortic regurgitation There is trace tricuspid valve regurgitation. Antibiotics: Cefazolin Rifampin Lines: PICC Past Medical History: Diabetes Hypertension IVDU Allergies/Adverse Reactions: Allergies No Known Allergies Allergy (Unverified 10/30/17 21:54) Objective Vital Signs 11/25/17 12:00 11/25/17 16:00 11/25/17 20:22 Temperature 98.6 F 98.7 F 98.4 F Pulse Rate 69 106 H 107 H Respiratory Rate 18 18 16 Blood Pressure 126/65 155/83 H 115/54 L Pulse Oximetry 95 98 11/26/17 00:18 11/26/17 04:35 11/26/17 08:00 Temperature 97.7 F 98.3 F 97.6 F Pulse Rate 98 H 105 H 97 H Respiratory Rate 16 16 16 Blood Pressure 126/57 L 124/56 L 119/56 L Pulse Oximetry 99 95 94 L Intake & Output 11/25/17 11/26/17 11/26/17 18:59 06:59 18:59 Intake Total 240 / 240 240 / 240 Output Total 700 / 700 700 / 700 Balance -460 / -460 -460 / -460 Weight 76.4 kg Intake: IV 240 / 240 240 / 240 Ancef Inj 2,000 MG In NS Inj 240 / 240 240 / 240 100 ML @ 240 mls/hr IV.SIG Q8H [facility] Rx#:[id number] Output: Urine 700 / 700 700 / 700 Lab - Hematology Results 11/25/17 07:35 WBC 7.3 RBC 3.40 L Hgb 9.7 L Hct 29.1 L MCV 85.5 MCH 28.5 MCHC 33.3 RDW 14.1 Plt Count 241 D MPV 9.2 Neut % (Auto) 58.7 Lymph % (Auto) 27.9 [place] % (Auto) 7.7 Eos % (Auto) 4.4 H Baso % (Auto) 1.3 Neut # (Auto) 4.3 Lymph # (Auto) 2.0 [place] # (Auto) 0.6 Eos # (Auto) 0.3 Baso # (Auto) 0.1 WBC Differential . Differential Comment Auto diff final Lab - Chemistry Results 11/25/17 07:35 Sodium 137 Potassium 3.6 Chloride 103 Carbon Dioxide 26.3 Anion Gap 8 BUN 12 Creatinine 0.75 Estimated GFR Greater than 89 Random Glucose 79 Calcium 8.6 Total Bilirubin 0.4 AST 15 ALT 9 L Alkaline Phosphatase 59 Total Protein 8.8 H Albumin 2.4 L Imaging: ITS Impressions Head CTA 11/04/17 05:39 CONCLUSION: 1. Patient is left vertebral dominant. 2. Otherwise, intracranial vessels are all patent without embolic or aneurysmal disease. Neck CTA 11/04/17 05:39 CONCLUSION: 1. Patient is left vertebral dominant. 2. Otherwise, arch and cervical vessels are patent throughout. Head MRI 11/13/17 00:00 CONCLUSION: 1. Evolving bilateral areas of infarction. There is mild mass effect on the left lateral ventricle particularly the posterior horn which is effaced. Chest X-Ray 11/16/17 06:00 CONCLUSION: Increasing indistinctness and engorgement of the central bronchopulmonary markings suggestive of pulmonary edema. Knee X-Ray 11/17/17 00:00 CONCLUSION: No acute findings. Shoulder X-Ray 11/17/17 00:00 CONCLUSION: No acute bony abnormalities. Head CT 11/24/17 02:28 CONCLUSION: Stable head CT with bilateral parietal and left frontal lobe edema reportedly related to recent infarcts. There is no midline shift or herniation. . Physical Exam: GENERAL: Awake, and following, NAD. Has expressive aphasia SKIN: Warm and dry. No generalized rash. HEAD: Atraumatic. Normocephalic. No temporal wasting, or tenderness. EYES: [place] conjunctiva. Has petechia on L conjunctiva. Pupils equal, round and reactive to light. No scleral icterus. OROPHARYNX: Moist mucosa. NECK: Trachea midline. Supple and not tender, no meningeal signs CARDIOVASCULAR: Regular rate and rhythm. Systolic murmur at the left sternal border. RESPIRATORY: Decreased at bases ABDOMEN: Soft, nondistended. Bowel sounds present and normoactive.Not tender EXTREMITIES: No clubbing, cyanosis. No joint effusion. NEUROLOGICAL: Not moving the right upper and lower extremity. PSYCHIATRIC: Unable to assess LINE: PICC no evidence of infection Assessment and Plan - Plan Impression MSSA sepsis L sided endocarditis AV, due to IVDU - has large vegetation AV, causing mild obstruction CVA with R sided weakness, aphasia, due to embolic event from his IE Persistent fevers. Resolved Respiratory failure, has bilateral infiltrates - doing well post extubation MSSA PNA, S/P Rx Recommendation Continue Ancef Continue Rifampin for synergy Labs weekly while on Abx: CBC, creatinine and LFT Will need long course of IV Abx - anticipate Abx until Dec 18 Monitor progress Per CTS not surgical candidate Clinically doing well from ID standpoint Discharge planning - still being determined D/W RN
--- NOTE | 2017-11-26 10:42 | P.PN ---
Subjective Interval history: Follow-up on patient with MSSA bacteremia, endocarditis, septic emboli, CVA. Patient seen and examined. Much more alert today. He is frustrated because he has not been able to get assistance with his breakfast. Otherwise, he appears comfortable. Discussed with nursing staff, no acute issues noted. Physical Exam Vital signs: Vital Signs 11/25/17 12:00 11/25/17 16:00 11/25/17 20:22 Temperature 98.6 F 98.7 F 98.4 F Pulse Rate 69 106 H 107 H Respiratory Rate 18 18 16 Blood Pressure 126/65 155/83 H 115/54 L Pulse Oximetry 95 98 11/26/17 00:18 11/26/17 04:35 11/26/17 08:00 Temperature 97.7 F 98.3 F 97.6 F Pulse Rate 98 H 105 H 97 H Respiratory Rate 16 16 16 Blood Pressure 126/57 L 124/56 L 119/56 L Pulse Oximetry 99 95 94 L Intake & Output 11/25/17 11/26/17 11/26/17 18:59 06:59 18:59 Intake Total 240 / 240 240 / 240 Output Total 700 / 700 700 / 700 Balance -460 / -460 -460 / -460 Weight 76.4 kg Intake: IV 240 / 240 240 / 240 Ancef Inj 2,000 MG In NS Inj 240 / 240 240 / 240 100 ML @ 240 mls/hr IV.SIG Q8H [facility] Rx#:[id number] Output: Urine 700 / 700 700 / 700 Narrative: GENERAL: WDWN male patient, INAD. Awake and alert. Follows some commands. +Expressive aphasia. SKIN: Warm and dry. No generalized rash. HEENT: Atraumatic. Normocephalic. Pupils equal and round. No scleral icterus. No nasal bleeding or discharge. Mucous membranes pink and moist. NECK: Trachea midline. Airway patent. CARDIOVASCULAR: Regular rate and rhythm. +Systolic murmur. RESPIRATORY: No accessory muscle use. Clear to auscultation anteriorly. Breath sounds equal bilaterally. GASTROINTESTINAL: Abdomen soft, non-tender, nondistended. +BS. MUSCULOSKELETAL: Extremities without clubbing, cyanosis, or edema. No obvious deformities. NEUROLOGICAL: Awake and alert. Able to spontaneously move left upper and lower extremity. +Expressive aphasia. PSYCHIATRIC: Mildly agitated. - Urinary Catheter Management Indwelling Urethral Catheter Cath placed during this visit: no Reason for continuing: Not indwelling catheter Condom Cath placed during this visit: yes Reason for continuing: Not indwelling catheter Insertion date: 11/12/17 Straight Cath placed during this visit: no Reason for continuing: Not indwelling catheter Results - Labs CBC & Chem 7: 11/25/17 07:35 11/25/17 07:35 - Imaging ITS Impressions Head CTA 11/04/17 05:39 CONCLUSION: 1. Patient is left vertebral dominant. 2. Otherwise, intracranial vessels are all patent without embolic or aneurysmal disease. Neck CTA 11/04/17 05:39 CONCLUSION: 1. Patient is left vertebral dominant. 2. Otherwise, arch and cervical vessels are patent throughout. Head MRI 11/13/17 00:00 CONCLUSION: 1. Evolving bilateral areas of infarction. There is mild mass effect on the left lateral ventricle particularly the posterior horn which is effaced. Chest X-Ray 11/16/17 06:00 CONCLUSION: Increasing indistinctness and engorgement of the central bronchopulmonary markings suggestive of pulmonary edema. Knee X-Ray 11/17/17 00:00 CONCLUSION: No acute findings. Shoulder X-Ray 11/17/17 00:00 CONCLUSION: No acute bony abnormalities. Head CT 11/24/17 02:28 CONCLUSION: Stable head CT with bilateral parietal and left frontal lobe edema reportedly related to recent infarcts. There is no midline shift or herniation. . Assessment and Plan - Assessment (1) Endocarditis Code(s): I38 - Endocarditis, valve unspecified Status: Acute (2) Sepsis Code(s): A41.9 - Sepsis, unspecified organism Status: Acute (3) Stroke, embolic Code(s): I63.9 - Cerebral infarction, unspecified Status: Acute (4) IV drug abuse Code(s): F19.10 - Other psychoactive substance abuse, uncomplicated Status: Acute (5) MSSA bacteremia Code(s): R78.81 - Bacteremia Status: Acute - Plan 31 year old male with history of IVDU admitted 11/04 after he was found on the floor of his apartment altered with right-sided hemiparesis. The patient had originally presented to the ER on 10/30 with fevers and back pain. At that visit , MRI of the back was negative and he was discharged home. Blood cultures ended up returning positive for MSSA in 4 out of the 4 bottles. The patient was attempted to be contacted but unfortunately he could not be reached. Upon presentation back to the ED, CT brain demonstrated a small amount of subarachnoid blood and small areas of decreased density suggestive of acute infarcts, and MRI confirmed multiple small areas of infarct. He was admitted to the assistant store manager operations service where bedside echocardiogram revealed a large mobile mass ont he aortic valve with associated severe AV regurgitation. He was also found to have an INR of 9.8 with a concern that the IV drugs he was using were contaminated. He was transfused 4 units of FFP and FEIBA with normalization of his INR. He was intubated on 11/05 for acute respiratory failure, self-extubated 11/07 with subsequent reintubation later that day, and has since been extubated on 11/13. Infectious MSSA bacteremia [place] AV endocarditis secondary to IV drug use Septic emboli Pneumonia Lactic acidosis - resolved - Blood cultures from 10/30, 11/04, 11/05, 11/06, and 11/07 + for MSSA - Repeat blood culture from 11/08, 11/09, and 11/11 NGTD - WBC normal - 2D echo demonstrating EF of 60-65% and a 1.7 x 1.0 cm large vegetation on the aortic valve with severe AV regurgitation - ID following, appreciate assistance. s/p PICC line placement. Discharge planning still in progress. - On cefazolin and Rifampin until 12/18 - Weekly CBC, creatinine and LFTs. Respiratory Acute respiratory failure - resolved Aspiration PNA MSSA sputum - Extubated since 11/13 - CXR 11/16 w/ findings suggestive of pulmonary edema - Supplemental O2 to maintain sats >92% - Completed course of Levaquin for aspiration - Bronchodilators Cardiovascular Cardiogenic shock Severe AV regurgitation Hypertension - Continue amlodipine 5 mg 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 Subarachnoid bleed - resolved IVDU Seizures Fall 11/17 - Imaging: * Head CT 11/04 with new infarct R parietal lobe, faint subarachnoid hemorrhage over high parietal convex bilaterally * Head and neck CTA negative * MRI 11/04 with multiple infarcts suggesting embolic occlusion * Repeat head CT 11/05 with new large area of edema in L MCA territory with no significant mass effect or midline shift, cerebellar areas of edema, and apparent resolution of SAH * Repeat head CT 11/06 and 11/12 with stable edema, no new hemorrhage or infarct * MRI brain 11/13 showing evolving bilateral areas of infarction with mild mass effect on L lateral ventricle * EEG 11/04 w/ moderate diffuse encephalopathy but no seizure activity * Repeat EEG 11/12 abnormal but no apparent evidence of epileptiform features * CT head 11/17 after patient fell out of bed showing evolving left MCA territory and R parietal lobe infarcts with localized mass effect and probably petechial hemorrhage. No significant midline shift. Repeat CT Head 11/24 stable - Neurosurgery consulted, no surgical intervention at this time - Neurology following, ready for rehab neuro-mcdaniels. - Continue Keppra 1000mg BID - Continue on Seroquel and Lexapro - PT recommending rehab - ST recommending regular, thin liquids - Poor po intake. 11lb wt loss since admission. Shipyard Painting Supervisor consulted for calorie count 11/26 to 11/29. Will await recommendations. Heme Elevated INR at 9.8 - resolved Salicylate elevation Anemia - Elevated INR likely secondary to IV drug contamination - Corrected after 4 units FFP and FEIBA - Anemia likely secondary to acute illness - H&H stable - Hemodynamically stable - No signs of acute bleeding DVT prophylaxis: holding pharmacologic DVT prophylaxis due to risks of hemorrhagic conversion GI prophylaxis: PPI Code Status: FULL Discussed Condition With: patient, nursing staff, Dr. Mojica Discharge Planning: PT HAS NO INSURANCE FOR REHAB SERVICES. DISABILITY PAPERWORK WILL BE FILLED PER [facility]. (2) Sepsis Qualifiers: Sepsis type: sepsis due to unspecified organism Qualified Code(s): A41.9 - Sepsis, unspecified organism
--- NOTE | 2017-11-26 11:56 | P.PNNPSY ---
- Behavior Mild: Impulsive/agitated - Cognitive Severe: Cognitive, Attention/concentration, Confused/orientation, Insight/ awareness, Judgment/problem solving, Memory - Psychosocial Severe: Psychosocial, Family/other adjustment, Realistic expectation - Progress Notes/Response to Treatment Contents of Sessions: Adjustment, Level of consciousness Premorbid Psychological Status: Premorbid Cognitive, Emotional and Behavioral Status: [Tenuous / Stable / Unstable / Deferred / Unable to Assess] The patient has [] years of education and a [solid / sporadic] work history prior to this injury. The patient has [ no / prior] psychiatric difficulties, as described above. Substance abuse history includes []. Behavioral Reactions of Patient and Family/Support System: [Tenuous / Stable / Unstable / Deferred / Unable to Assess] The patients family is experiencing ongoing issues of adjustment given the nature of the injury, and this aspect of recovery will require ongoing monitoring. Emotional/Behavioral Status of Patient and Family/Support System: [Tenuous / Stable / Unstable / Deferred / Unable to Assess] Pertinent issues, if appropriate to this patients clinical care, are described in detail above. Maximizing Acute Care Outcome: It is recommended that the patient be monitored for emergent behavioral impulsivity as the medical condition evolves. This patients neuropathological challenges may limit rehabilitation potential going forward, and these challenges will require specialized therapeutic skills to maximize outcome. Additionally, the patients family is experiencing ongoing issues of adjustment given the traumatic nature of the injury, and they may benefit from ongoing psychological assistance. At this point in the recovery process, the patient does not have cognitive capacity as the patient is unable to understand a situation and its likely consequences, nor is the patient able to manipulate information rationally. Cognitive capacity will be assessed throughout the recovery process. Anticipated Problems: Ongoing areas of concern will include behavioral impulsivity, lack of insight and judgment, which may or may not improve with time and treatment. Presently , the patient is not following greater than one-step commands. Given the severity of the patient's injuries it is my clinical opinion that this patient will be unable to return to any type of productive employment for at least one year, perhaps longer and likely never. This patient is not considered safe to discharge home without supervision. Treatment Plan: This clinician will continue to follow with you throughout the course of this patients rehabilitation treatment, and I will be available to meet with the patients family/support system to facilitate their understanding and the ongoing care of their family member. The goals of neuropsychological intervention shall be both educational and supportive to the family/support system as is deemed clinically appropriate. Additionally, I would recommend a referral to Dr. Frost for ongoing patient and family adjustment issues if they are coming to [place]. Disinhibition Score: 26.25 Aggression Score: 17.50 Lability Score: 23.32 Agitated Behavior Total Score: 23 Impression: This patient is a 31 year old male with a complicated medical history resulting in stroke due to septic emboli. He is now aphasic and cognitively and neurobehaviorally impaired. Progress Note Narrative: Day 22 of hospitalization. This patient is becoming increasingly restless and agitated, with recent ABS scores of 23 (26.3,17.5,23.3) which is mild agitation , consistent with clinical presentation. He remains globally aphasic. He is presently on Seroquel 25 BID, and consider increasing to Seroquel 50 BID, unless medically contraindicated, utilizing the ABS score 21 or below as a goal. I will follow. - Diagnosis (1) Major neurocognitive disorder due to vascular disease, without behavioral disturbance, severe Status: Acute
--- NOTE | 2017-11-26 13:06 | P.DIET ---
Nutritional Evaluation Type of nutrition evaluation: follow-up (Previous TF) Nutrition consult regarding: Tube Feeding Nutrition screening: MDC (Calorie Counting) Subjective Subjective Comments: PO intake has been 25-50%. Pt's mother has voiced concern about his poor po intake. Objective - Diagnosis Sepsis, Stroke Symptoms, r/o septic emboli of the brain - Objective % IBW: 116 (IBW = 142#) Body Weight Used for Calculations: Actual (81.6 kg) Energy Needs - Lower Range (kCal/kg): 25 Energy Needs - Upper Range (kCal/kg): 30 Lower Limit kCal/kg (kCals): 2,040 Upper Limit kCal/kg (kCals): 2,448 Lower Limit Protein Factor (Grams per Kg): 1.2 Upper Limit Protein Factor (Grams per Kg): 1.6 Lower Protein Needs (Protein): 98 Upper Protein Needs (Protein): 131 Dietitian Reviewed in Medical Record: Current diet, Curent medications, Intake & Output, Labs Diet Order: Heart Healthy Objective Comments: Med hx includes IVDU, DM, HTN Assessment Assessment: Pt was extubated on 11/13 and is on a Heart Healthy diet. He currently is unable to really communicate well. His PO intake is relatively poor and he is receiving Ensure Enlive TID on his trays. Weights reviewed: CBW 76.4 kg which indicates ~11# wt loss since admission. Calorie count initiated per Dr's order. Will assess results on 11/29 and make recommendations accordingly. Recommendations: 1. Continue Heart Healthy diet 2. Ensure Enlive TID. 3. Calorie counts 11/26-11/29 Dietitian to Monitor: Lab values, Supplement acceptance, Intake & Output, Diet tolerance, Weight change, PO Intake, Swallow recommendations, Medical course
[2017-11-26] MEDS: Hypromellose 0.3% Opth Gel 10 GM Bottle EACH EYE SCH (20:58)
[2017-11-27] MEDS: Oral Hygiene Kit OROPHARYNG SCH ×4 (01:53→17:43)
--- NOTE | 2017-11-27 08:35 | P.PNNPSY ---
- Progress Notes/Response to Treatment Time with Patient: 15 minutes Premorbid Psychological Status: Premorbid Cognitive, Emotional and Behavioral Status: [Tenuous / Stable / Unstable / Deferred / Unable to Assess] The patient has [] years of education and a [solid / sporadic] work history prior to this injury. The patient has [ no / prior] psychiatric difficulties, as described above. Substance abuse history includes []. Behavioral Reactions of Patient and Family/Support System: [Tenuous / Stable / Unstable / Deferred / Unable to Assess] The patients family is experiencing ongoing issues of adjustment given the nature of the injury, and this aspect of recovery will require ongoing monitoring. Emotional/Behavioral Status of Patient and Family/Support System: [Tenuous / Stable / Unstable / Deferred / Unable to Assess] Pertinent issues, if appropriate to this patients clinical care, are described in detail above. Maximizing Acute Care Outcome: It is recommended that the patient be monitored for emergent behavioral impulsivity as the medical condition evolves. This patients neuropathological challenges may limit rehabilitation potential going forward, and these challenges will require specialized therapeutic skills to maximize outcome. Additionally, the patients family is experiencing ongoing issues of adjustment given the traumatic nature of the injury, and they may benefit from ongoing psychological assistance. At this point in the recovery process, the patient does not have cognitive capacity as the patient is unable to understand a situation and its likely consequences, nor is the patient able to manipulate information rationally. Cognitive capacity will be assessed throughout the recovery process. Anticipated Problems: Ongoing areas of concern will include behavioral impulsivity, lack of insight and judgment, which may or may not improve with time and treatment. Presently , the patient is not following greater than one-step commands. Given the severity of the patient's injuries it is my clinical opinion that this patient will be unable to return to any type of productive employment for at least one year, perhaps longer and likely never. This patient is not considered safe to discharge home without supervision. Treatment Plan: This clinician will continue to follow with you throughout the course of this patients rehabilitation treatment, and I will be available to meet with the patients family/support system to facilitate their understanding and the ongoing care of their family member. The goals of neuropsychological intervention shall be both educational and supportive to the family/support system as is deemed clinically appropriate. Additionally, I would recommend a referral to Dr. Frost for ongoing patient and family adjustment issues if they are coming to [place]. Disinhibition Score: 22.75 Aggression Score: 17.50 Lability Score: 14.00 Agitated Behavior Total Score: 19 Impression: This patient is a 31 year old male with a complicated medical history resulting in stroke due to septic emboli. He is now aphasic and cognitively and neurobehaviorally impaired. Progress Note Narrative: Day 23 of hospitalization. There is minimal change neurocognitively. Neurobehaviorally, his agitation/restlessness is improved. Today's ABS is 19 ( 22.8,17.5,14). He is managed on Lexapro 10 qD and Keppra for seizure control. I will follow. - Diagnosis (1) Major neurocognitive disorder due to vascular disease, without behavioral disturbance, severe Status: Acute
[2017-11-27] MEDS: Chlorhexidine 0.12% Oral Kit 15 ML UDC OROPHARYNG SCH ×2 (09:54→21:57)
[2017-11-27] MEDS: Heparin Central Flush 100 UNIT/ML 5 ML Vial IV.FLUSH SCH (09:59)
[2017-11-27] MEDS: levETIRAcetam 500 MG Tablet PO SCH ×2 (10:01→22:02)
[2017-11-27] MEDS: QUEtiapine 25 MG Tablet PO SCH (10:02)
[2017-11-27] MEDS: Escitalopram 10 MG Tablet PO SCH (10:02)
[2017-11-27] MEDS: Famotidine 20 MG Tablet PO SCH ×2 (10:02→22:02)
[2017-11-27] MEDS: Senna/Docusate Sodium 8.6/50 MG Tablet PO SCH ×2 (10:02→22:03)
[2017-11-27] MEDS: amLODIPine 5 MG Tablet PO SCH (10:02)
--- NOTE | 2017-11-27 12:54 | P.PN ---
Subjective Interval history: Follow-up on patient with MSSA bacteremia, endocarditis, septic emboli, CVA. Patient seen and examined. Patient encountered awake lying in bed. Appears comfortable. He does not have any acute medical complaints. VSS. Afebrile. Physical Exam Vital signs: Vital Signs 11/26/17 20:00 11/27/17 00:00 11/27/17 04:00 Temperature 98.8 F 98.2 F 98.6 F Pulse Rate 100 H 99 H 98 H Respiratory Rate 18 18 18 Blood Pressure 112/53 L 115/54 L 120/53 L Pulse Oximetry 96 98 100 11/27/17 08:00 Temperature 98.8 F Pulse Rate 95 H Respiratory Rate 18 Blood Pressure 120/60 Pulse Oximetry 98 Intake & Output 11/26/17 11/27/17 11/27/17 18:59 06:59 18:59 Intake Total 480 / 480 120 / 120 120 / 120 Output Total 450 / 450 Balance 480 / 480 -330 / -330 120 / 120 Weight 76.7 kg Intake: IV 240 / 240 120 / 120 120 / 120 Ancef Inj 2,000 MG In NS Inj 240 / 240 120 / 120 120 / 120 100 ML @ 240 mls/hr IV.SIG Q8H JONATHON Rx#:[id number] Oral 240 / 240 Output: Urine 450 / 450 Other: # Voids 3 Date of Last Bowel Movement 11/26/17 11/26/17 # Bowel Movements 1 Narrative: GENERAL: WDWN male patient, INAD. Awake and alert. +Expressive aphasia. Appear comfortable. SKIN: Warm and dry. No generalized rash. HEENT: Atraumatic. Normocephalic. Pupils equal and round. No scleral icterus. No nasal bleeding or discharge. Mucous membranes pink and moist. NECK: Trachea midline. Airway patent. CARDIOVASCULAR: Regular rate and rhythm. +Systolic murmur. RESPIRATORY: No accessory muscle use. Clear to auscultation anteriorly. Breath sounds equal bilaterally. GASTROINTESTINAL: Abdomen soft, non-tender, nondistended. +BS. MUSCULOSKELETAL: Extremities without clubbing, cyanosis, or edema. No obvious deformities. NEUROLOGICAL: Awake and alert. Able to spontaneously move right upper and lower extremity some. Good motor and sensory function in left upper and lower extremity. Follows commands. +Expressive aphasia. PSYCHIATRIC: Calm and cooperative with exam. - Urinary Catheter Management Indwelling Urethral Catheter Cath placed during this visit: no Reason for continuing: Not indwelling catheter Condom Cath placed during this visit: yes Reason for continuing: Not indwelling catheter Insertion date: 11/12/17 Straight Cath placed during this visit: no Reason for continuing: Not indwelling catheter Results - Labs CBC & Chem 7: 11/25/17 07:35 11/25/17 07:35 - Imaging ITS Impressions Head CTA 11/04/17 05:39 CONCLUSION: 1. Patient is left vertebral dominant. 2. Otherwise, intracranial vessels are all patent without embolic or aneurysmal disease. Neck CTA 11/04/17 05:39 CONCLUSION: 1. Patient is left vertebral dominant. 2. Otherwise, arch and cervical vessels are patent throughout. Head MRI 11/13/17 00:00 CONCLUSION: 1. Evolving bilateral areas of infarction. There is mild mass effect on the left lateral ventricle particularly the posterior horn which is effaced. Chest X-Ray 11/16/17 06:00 CONCLUSION: Increasing indistinctness and engorgement of the central bronchopulmonary markings suggestive of pulmonary edema. Knee X-Ray 11/17/17 00:00 CONCLUSION: No acute findings. Shoulder X-Ray 11/17/17 00:00 CONCLUSION: No acute bony abnormalities. Head CT 11/24/17 02:28 CONCLUSION: Stable head CT with bilateral parietal and left frontal lobe edema reportedly related to recent infarcts. There is no midline shift or herniation. . Assessment and Plan - Assessment (1) Endocarditis Code(s): I38 - Endocarditis, valve unspecified Status: Acute (2) Sepsis Code(s): A41.9 - Sepsis, unspecified organism Status: Acute (3) Stroke, embolic Code(s): I63.9 - Cerebral infarction, unspecified Status: Acute (4) IV drug abuse Code(s): F19.10 - Other psychoactive substance abuse, uncomplicated Status: Acute (5) MSSA bacteremia Code(s): R78.81 - Bacteremia Status: Acute - Plan 31 year old male with history of IVDU admitted 11/04 after he was found on the floor of his apartment altered with right-sided hemiparesis. The patient had originally presented to the ER on 10/30 with fevers and back pain. At that visit , MRI of the back was negative and he was discharged home. Blood cultures ended up returning positive for MSSA in 4 out of the 4 bottles. The patient was attempted to be contacted but unfortunately he could not be reached. Upon presentation back to the ED, CT brain demonstrated a small amount of subarachnoid blood and small areas of decreased density suggestive of acute infarcts, and MRI confirmed multiple small areas of infarct. He was admitted to the cork molder service where bedside echocardiogram revealed a large mobile mass ont he aortic valve with associated severe AV regurgitation. He was also found to have an INR of 9.8 with a concern that the IV drugs he was using were contaminated. He was transfused 4 units of FFP and FEIBA with normalization of his INR. He was intubated on 11/05 for acute respiratory failure, self-extubated 11/07 with subsequent reintubation later that day, and has since been extubated on 11/13. 11/27 No significant change. Continue IV abx. Discussed with nursing staff, no acute issues noted. 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 s/p PICC line placement. Discharge planning still in progress. - On cefazolin and Rifampin until 12/18 - Weekly CBC, creatinine and LFTs - next lab draw 12/02/17 Respiratory Acute respiratory failure - resolved Aspiration PNA MSSA sputum - Extubated since 11/13 - CXR 11/16 w/ findings suggestive of pulmonary edema - Supplemental O2 to maintain sats >92% - Completed course of Levaquin for aspiration - Bronchodilators Cardiovascular Cardiogenic shock Severe AV regurgitation Hypertension - Continue amlodipine 5 mg 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 Subarachnoid bleed - resolved IVDU Seizures Fall 11/17 - Imaging: * Head CT 11/04 with new infarct R parietal lobe, faint subarachnoid hemorrhage over high parietal convex bilaterally * Head and neck CTA negative * MRI 11/04 with multiple infarcts suggesting embolic occlusion * Repeat head CT 11/05 with new large area of edema in L MCA territory with no significant mass effect or midline shift, cerebellar areas of edema, and apparent resolution of SAH * Repeat head CT 11/06 and 11/12 with stable edema, no new hemorrhage or infarct * MRI brain 11/13 showing evolving bilateral areas of infarction with mild mass effect on L lateral ventricle * EEG 11/04 w/ moderate diffuse encephalopathy but no seizure activity * Repeat EEG 11/12 abnormal but no apparent evidence of epileptiform features * CT head 11/17 after patient fell out of bed showing evolving left MCA territory and R parietal lobe infarcts with localized mass effect and probably petechial hemorrhage. No significant midline shift. Repeat CT Head 11/24 stable - Neurosurgery consulted, no surgical intervention at this time - Neurology following, ready for rehab neuro-mcdaniels. - Continue Keppra 1000mg BID - Continue on Seroquel and Lexapro - PT recommending rehab - ST recommending regular, thin liquids - Poor po intake. 11lb wt loss since admission. Cutter Operator Tile consulted for calorie count 11/26 to 11/29. Will await recommendations. Heme Elevated INR at 9.8 - resolved Salicylate elevation Anemia - Elevated INR likely secondary to IV drug contamination - Corrected after 4 units FFP and FEIBA - Anemia likely secondary to acute illness - H&H stable - Hemodynamically stable - No signs of acute bleeding DVT prophylaxis: holding pharmacologic DVT prophylaxis due to risks of hemorrhagic conversion GI prophylaxis: PPI Code Status: FULL Discussed Condition With: patient, nursing staff, Dr. Mojica Discharge Planning: PT HAS NO INSURANCE FOR REHAB SERVICES. DISABILITY PAPERWORK WILL BE FILLED PER [facility] AT [facility] [place]. (2) Sepsis Qualifiers: Sepsis type: sepsis due to unspecified organism Qualified Code(s): A41.9 - Sepsis, unspecified organism
[2017-11-27] MEDS: Hypromellose 0.3% Opth Gel 10 GM Bottle EACH EYE SCH (22:15)
[2017-11-28] MEDS: Oral Hygiene Kit OROPHARYNG SCH ×3 (00:21→16:32)
--- NOTE | 2017-11-28 06:57 | P.PN ---
Subjective Interval history: Follow-up on patient with MSSA bacteremia, endocarditis, septic emboli, CVA. Patient seen and examined. Patient sleeping in bed. Appears comfortable. DW RN, no acute events noted. Physical Exam Vital signs: Vital Signs 11/27/17 08:00 11/27/17 12:00 11/27/17 16:00 Temperature 98.8 F 98.3 F 98.5 F Pulse Rate 95 H 105 H 93 H Respiratory Rate 18 18 Blood Pressure 120/60 123/57 L 114/56 L Pulse Oximetry 98 95 95 11/27/17 20:00 11/28/17 00:00 11/28/17 04:00 Temperature 98.7 F 98.2 F 99.7 F H Pulse Rate 99 H 101 H 96 H Respiratory Rate 18 18 18 Blood Pressure 120/56 L 130/60 108/54 L Pulse Oximetry 95 96 97 Intake & Output 11/27/17 11/27/17 11/28/17 06:59 18:59 06:59 Intake Total 120 / 120 120 / 120 720 / 720 Output Total 450 / 450 1 / 1 800 / 800 Balance -330 / -330 119 / 119 -80 / -80 Weight 76.7 kg 78.2 kg Intake: IV 120 / 120 120 / 120 240 / 240 Ancef Inj 2,000 MG In NS Inj 120 / 120 120 / 120 240 / 240 100 ML @ 240 mls/hr IV.SIG Q8H JONATHON Rx#:[id number] Oral 480 / 480 Output: Urine 450 / 450 800 / 800 Stool 1 / 1 Urine/Stool Mix 0 / 0 Other: Date of Last Bowel Movement 11/27/17 11/26/17 # Bowel Movements 1 # Incontinent Bowel Movements 1 Narrative: GENERAL: WDWN male patient, INAD. Asleep but easily awakens to voice. +Expressive aphasia. Appears comfortable. SKIN: Warm and dry. No generalized rash. HEENT: Atraumatic. Normocephalic. Pupils equal and round. No scleral icterus. No nasal bleeding or discharge. Mucous membranes pink and moist. NECK: Trachea midline. Airway patent. CARDIOVASCULAR: Regular rate and rhythm. +Systolic murmur. RESPIRATORY: No accessory muscle use. Clear to auscultation anteriorly. Breath sounds equal bilaterally. GASTROINTESTINAL: Abdomen soft, non-tender, nondistended. +BS. MUSCULOSKELETAL: Extremities without clubbing, cyanosis, or edema. No obvious deformities. NEUROLOGICAL: Awake. Able to spontaneously move right upper and lower extremity some. Good motor and sensory function in left upper and lower extremity. Follows commands. +Expressive aphasia. PSYCHIATRIC: Calm and cooperative with exam. - Urinary Catheter Management Indwelling Urethral Catheter Cath placed during this visit: no Reason for continuing: Not indwelling catheter Condom Cath placed during this visit: yes Reason for continuing: Not indwelling catheter Insertion date: 11/12/17 Straight Cath placed during this visit: no Reason for continuing: Not indwelling catheter Results - Labs CBC & Chem 7: 11/25/17 07:35 11/25/17 07:35 Assessment and Plan - Assessment (1) Endocarditis Code(s): I38 - Endocarditis, valve unspecified Status: Acute (2) Sepsis Code(s): A41.9 - Sepsis, unspecified organism Status: Acute (3) Stroke, embolic Code(s): I63.9 - Cerebral infarction, unspecified Status: Acute (4) IV drug abuse Code(s): F19.10 - Other psychoactive substance abuse, uncomplicated Status: Acute (5) MSSA bacteremia Code(s): R78.81 - Bacteremia Status: Acute - Plan 31 year old male with history of IVDU admitted 11/04 after he was found on the floor of his apartment altered with right-sided hemiparesis. The patient had originally presented to the ER on 10/30 with fevers and back pain. At that visit , MRI of the back was negative and he was discharged home. Blood cultures ended up returning positive for MSSA in 4 out of the 4 bottles. The patient was attempted to be contacted but unfortunately he could not be reached. Upon presentation back to the ED, CT brain demonstrated a small amount of subarachnoid blood and small areas of decreased density suggestive of acute infarcts, and MRI confirmed multiple small areas of infarct. He was admitted to the sanitation worker cleaning equipment service where bedside echocardiogram revealed a large mobile mass ont he aortic valve with associated severe AV regurgitation. He was also found to have an INR of 9.8 with a concern that the IV drugs he was using were contaminated. He was transfused 4 units of FFP and FEIBA with normalization of his INR. He was intubated on 11/05 for acute respiratory failure, self-extubated 11/07 with subsequent reintubation later that day, and has since been extubated on 11/13. 11/28 No change. Patient is stable. Without any complaints. Continue IV abx. Discussed with nursing staff, no acute issues noted. 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 s/p PICC line placement. Discharge planning still in progress. - On cefazolin and Rifampin until 12/18 - Weekly CBC, creatinine and LFTs - next lab draw 12/02/17 Respiratory Acute respiratory failure - resolved Aspiration PNA MSSA sputum - Extubated since 11/13 - CXR 11/16 w/ findings suggestive of pulmonary edema - Supplemental O2 to maintain sats >92% - Completed course of Levaquin for aspiration - Bronchodilators Cardiovascular Cardiogenic shock Severe AV regurgitation Hypertension - Continue amlodipine 5 mg 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 Subarachnoid bleed - resolved IVDU Seizures Fall 11/17 - Imaging: * Head CT 11/04 with new infarct R parietal lobe, faint subarachnoid hemorrhage over high parietal convex bilaterally * Head and neck CTA negative * MRI 11/04 with multiple infarcts suggesting embolic occlusion * Repeat head CT 11/05 with new large area of edema in L MCA territory with no significant mass effect or midline shift, cerebellar areas of edema, and apparent resolution of SAH * Repeat head CT 11/06 and 11/12 with stable edema, no new hemorrhage or infarct * MRI brain 11/13 showing evolving bilateral areas of infarction with mild mass effect on L lateral ventricle * EEG 11/04 w/ moderate diffuse encephalopathy but no seizure activity * Repeat EEG 11/12 abnormal but no apparent evidence of epileptiform features * CT head 11/17 after patient fell out of bed showing evolving left MCA territory and R parietal lobe infarcts with localized mass effect and probably petechial hemorrhage. No significant midline shift. Repeat CT Head 11/24 stable - Neurosurgery consulted, no surgical intervention at this time - Neurology following, ready for rehab neuro-mcdaniels. - Continue Keppra 1000mg BID - Continue on Seroquel and Lexapro - PT recommending rehab - ST recommending regular, thin liquids - Poor po intake. 11lb wt loss since admission. Latex Foam Worker consulted for calorie count 11/26 to 11/29. Will await recommendations. Heme Elevated INR at 9.8 - resolved Salicylate elevation Anemia - Elevated INR likely secondary to IV drug contamination - Corrected after 4 units FFP and FEIBA - Anemia likely secondary to acute illness - H&H stable - Hemodynamically stable - No signs of acute bleeding DVT prophylaxis: holding pharmacologic DVT prophylaxis due to risks of hemorrhagic conversion GI prophylaxis: PPI Code Status: FULL Discharge Planning: PT HAS NO INSURANCE FOR REHAB SERVICES. DISABILITY PAPERWORK WILL BE FILLED PER [facility] AT [facility]. (2) Sepsis Qualifiers: Sepsis type: sepsis due to unspecified organism Qualified Code(s): A41.9 - Sepsis, unspecified organism
[2017-11-28] MEDS: QUEtiapine 25 MG Tablet PO SCH (09:37)
[2017-11-28] MEDS: Senna/Docusate Sodium 8.6/50 MG Tablet PO SCH ×2 (09:38→20:31)
[2017-11-28] MEDS: Heparin Central Flush 100 UNIT/ML 5 ML Vial IV.FLUSH SCH (09:38)
[2017-11-28] MEDS: levETIRAcetam 500 MG Tablet PO SCH ×2 (09:38→20:30)
[2017-11-28] MEDS: Escitalopram 10 MG Tablet PO SCH (09:38)
[2017-11-28] MEDS: amLODIPine 5 MG Tablet PO SCH (09:38)
[2017-11-28] MEDS: Famotidine 20 MG Tablet PO SCH ×2 (09:38→20:31)
[2017-11-28] MEDS: Chlorhexidine 0.12% Oral Kit 15 ML UDC OROPHARYNG SCH ×2 (09:39→20:30)
[2017-11-28] MEDS: Hypromellose 0.3% Opth Gel 10 GM Bottle EACH EYE SCH (20:32)
[2017-11-29] MEDS: Oral Hygiene Kit OROPHARYNG SCH ×3 (01:01→18:11)
[2017-11-29] MEDS: Chlorhexidine 0.12% Oral Kit 15 ML UDC OROPHARYNG SCH ×2 (07:15→21:08)
--- NOTE | 2017-11-29 07:39 | P.PN ---
Subjective Interval history: Follow-up on patient with MSSA bacteremia, endocarditis, septic emboli, CVA. Patient seen and examined. No significant change. Patient is stable. DW nursing staff, no acute issues. Physical Exam Vital signs: Vital Signs 11/28/17 08:00 11/28/17 12:00 11/28/17 16:00 Temperature 97.9 F 97.9 F 97.9 F Pulse Rate 98 H 95 H 109 H Respiratory Rate 18 18 Blood Pressure 123/59 L 119/55 L 130/60 Pulse Oximetry 96 95 96 11/28/17 20:00 11/29/17 00:00 11/29/17 04:00 Temperature 98.7 F 98.1 F 97.8 F Pulse Rate 99 H 97 H 100 H Respiratory Rate 18 18 Blood Pressure 122/55 L 118/55 L 108/57 L Pulse Oximetry 98 95 96 Intake & Output 11/28/17 11/29/17 11/29/17 18:59 06:59 18:59 Intake Total 1200 / 1200 120 / 120 Output Total 850 / 850 650 / 650 Balance 350 / 350 -530 / -530 Weight 78.2 kg Intake: IV 240 / 240 120 / 120 Ancef Inj 2,000 MG In NS Inj 240 / 240 120 / 120 100 ML @ 240 mls/hr IV.SIG Q8H JONATHON Rx#:[id number] Oral 720 / 720 Other 240 / 240 Output: Urine 850 / 850 650 / 650 Other: Other Intake Source Saline Solution # Voids 3 # Incontinent Voids 2 Date of Last Bowel Movement 11/28/17 11/26/17 # Bowel Movements 1 Narrative: GENERAL: WDWN male patient, INAD. Awake and alert. +Expressive aphasia. Appears comfortable. SKIN: Warm and dry. No generalized rash. HEENT: Atraumatic. Normocephalic. Pupils equal and round. No scleral icterus. No nasal bleeding or discharge. Mucous membranes pink and moist. NECK: Trachea midline. Airway patent. CARDIOVASCULAR: Regular rate and rhythm. +Systolic murmur. RESPIRATORY: No accessory muscle use. Clear to auscultation anteriorly. Breath sounds equal bilaterally. GASTROINTESTINAL: Abdomen soft, non-tender, nondistended. +BS. MUSCULOSKELETAL: Extremities without clubbing, cyanosis, or edema. No obvious deformities. NEUROLOGICAL: Awake. Able to spontaneously move right upper and lower extremity some. Good motor and sensory function in left upper and lower extremity. Follows commands. +Expressive aphasia. PSYCHIATRIC: Calm and cooperative with exam. - Urinary Catheter Management Indwelling Urethral Catheter Cath placed during this visit: no Reason for continuing: Not indwelling catheter Condom Cath placed during this visit: yes Reason for continuing: Not indwelling catheter Insertion date: 11/12/17 Straight Cath placed during this visit: no Reason for continuing: Not indwelling catheter Results - Labs CBC & Chem 7: 11/25/17 07:35 11/25/17 07:35 Assessment and Plan - Assessment (1) Endocarditis Code(s): I38 - Endocarditis, valve unspecified Status: Acute (2) Sepsis Code(s): A41.9 - Sepsis, unspecified organism Status: Acute (3) Stroke, embolic Code(s): I63.9 - Cerebral infarction, unspecified Status: Acute (4) IV drug abuse Code(s): F19.10 - Other psychoactive substance abuse, uncomplicated Status: Acute (5) MSSA bacteremia Code(s): R78.81 - Bacteremia Status: Acute - Plan 31 year old male with history of IVDU admitted 11/04 after he was found on the floor of his apartment altered with right-sided hemiparesis. The patient had originally presented to the ER on 10/30 with fevers and back pain. At that visit , MRI of the back was negative and he was discharged home. Blood cultures ended up returning positive for MSSA in 4 out of the 4 bottles. The patient was attempted to be contacted but unfortunately he could not be reached. Upon presentation back to the ED, CT brain demonstrated a small amount of subarachnoid blood and small areas of decreased density suggestive of acute infarcts, and MRI confirmed multiple small areas of infarct. He was admitted to the screedman/laborer service where bedside echocardiogram revealed a large mobile mass ont he aortic valve with associated severe AV regurgitation. He was also found to have an INR of 9.8 with a concern that the IV drugs he was using were contaminated. He was transfused 4 units of FFP and FEIBA with normalization of his INR. He was intubated on 11/05 for acute respiratory failure, self-extubated 11/07 with subsequent reintubation later that day, and has since been extubated on 11/13. 11/29 Patient is stable. No change. Without any complaints. Continue IV abx. Discussed with nursing staff, no acute issues noted. 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 s/p PICC line placement. Discharge planning still in progress. - On cefazolin and Rifampin until 12/18 - Weekly CBC, creatinine and LFTs - next lab draw 12/02/17 Respiratory Acute respiratory failure - resolved Aspiration PNA MSSA sputum - Extubated since 11/13 - CXR 11/16 w/ findings suggestive of pulmonary edema - Supplemental O2 to maintain sats >92% - Completed course of Levaquin for aspiration - Bronchodilators Cardiovascular Cardiogenic shock Severe AV regurgitation Hypertension - Continue amlodipine 5 mg 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 Subarachnoid bleed - resolved IVDU Seizures Fall 11/17 - Imaging: * Head CT 11/04 with new infarct R parietal lobe, faint subarachnoid hemorrhage over high parietal convex bilaterally * Head and neck CTA negative * MRI 11/04 with multiple infarcts suggesting embolic occlusion * Repeat head CT 11/05 with new large area of edema in L MCA territory with no significant mass effect or midline shift, cerebellar areas of edema, and apparent resolution of SAH * Repeat head CT 11/06 and 11/12 with stable edema, no new hemorrhage or infarct * MRI brain 11/13 showing evolving bilateral areas of infarction with mild mass effect on L lateral ventricle * EEG 11/04 w/ moderate diffuse encephalopathy but no seizure activity * Repeat EEG 11/12 abnormal but no apparent evidence of epileptiform features * CT head 11/17 after patient fell out of bed showing evolving left MCA territory and R parietal lobe infarcts with localized mass effect and probably petechial hemorrhage. No significant midline shift. Repeat CT Head 11/24 stable - Neurosurgery consulted, no surgical intervention at this time - Neurology following, ready for rehab neuro-mcdaniels. - Continue Keppra 1000mg BID - Continue on Seroquel and Lexapro - PT recommending rehab - ST recommending regular, thin liquids - Poor po intake. 11lb wt loss since admission. Barrel Reamer consulted for calorie count 11/26 to 11/29. Per note today, no meals recorded. Plan to repeat calorie count next week. Heme Elevated INR at 9.8 - resolved Salicylate elevation Anemia - Elevated INR likely secondary to IV drug contamination - Corrected after 4 units FFP and FEIBA - Anemia likely secondary to acute illness - H&H stable - Hemodynamically stable - No signs of acute bleeding DVT prophylaxis: holding pharmacologic DVT prophylaxis due to risks of hemorrhagic conversion GI prophylaxis: PPI Code Status: FULL Discussed Condition With: patient, nursing staff, Dr. Mojica Discharge Planning: PT HAS NO INSURANCE FOR REHAB SERVICES. DISABILITY PAPERWORK WILL BE FILLED PER [facility] AT [facility] [place]. (2) Sepsis Qualifiers: Sepsis type: sepsis due to unspecified organism Qualified Code(s): A41.9 - Sepsis, unspecified organism
[2017-11-29] MEDS: amLODIPine 5 MG Tablet PO SCH (08:07)
[2017-11-29] MEDS: Escitalopram 10 MG Tablet PO SCH (08:07)
[2017-11-29] MEDS: levETIRAcetam 500 MG Tablet PO SCH ×2 (08:08→21:10)
[2017-11-29] MEDS: Famotidine 20 MG Tablet PO SCH ×2 (08:08→21:10)
[2017-11-29] MEDS: QUEtiapine 25 MG Tablet PO SCH (08:08)
[2017-11-29] MEDS: Heparin Central Flush 100 UNIT/ML 5 ML Vial IV.FLUSH SCH (08:09)
--- NOTE | 2017-11-29 12:26 | P.PNID ---
Subjective Remarks: Patient is a 31-year-old male, who initially presented to [facility] emergency room October 30 complaining of 3 day history of headache. He gave a history of IV drug use. He was not febrile during that visit. WBC was normal. He underwent CT of the brain which was negative. Also underwent MRI of the thoracic and lumbar spine which were both negative for any infection. 2 blood cultures were done at that time and he was discharged. He came back to the hospital after his friends found him on the kitchen floor. He was reportedly unable to move his right side. And he was also noted to have some difficulty speaking. He remains afebrile. His white count is elevated. His CT of the head is now showing some findings in the right parietal area, as well as faint subarachnoid hemorrhage. CTA of the neck is negative. He has evidence of right-sided weakness, as well as expressive aphasia. The 2 blood cultures done on his ED visit is now reported as growing MSSA. Infectious disease consultation has been requested to evaluate the patient. Notes reviewed Doing well Temps ok Working with PT and OT BC (+) 11/04-11/07 Not a surgical candidate per CTS evaluation. Echocardiogram: The left ventricular systolic function is normal with an estimated ejection fraction in the range of 60-65%. Trace mitral valve regurgitation. Large vegetation noted on the aortic valve (1.7cm x 1.0cm) Mild obstruction of the aortic valve due to vegetation with a mean gradient of 11 mmHg Severe eccentric aortic regurgitation There is trace tricuspid valve regurgitation. Antibiotics: Cefazolin Rifampin Lines: PICC Past Medical History: Diabetes Hypertension IVDU Allergies/Adverse Reactions: Allergies No Known Allergies Allergy (Unverified 10/30/17 21:54) Objective Vital Signs 11/28/17 16:00 11/28/17 20:00 11/29/17 00:00 Temperature 97.9 F 98.7 F 98.1 F Pulse Rate 109 H 99 H 97 H Respiratory Rate 18 18 18 Blood Pressure 130/60 122/55 L 118/55 L Pulse Oximetry 96 98 95 11/29/17 04:00 11/29/17 08:00 Temperature 97.8 F 97.9 F Pulse Rate 100 H 99 H Respiratory Rate 18 17 Blood Pressure 108/57 L 134/63 Pulse Oximetry 96 97 Intake & Output 11/28/17 11/29/17 11/29/17 18:59 06:59 18:59 Intake Total 1200 / 1200 120 / 120 Output Total 850 / 850 650 / 650 Balance 350 / 350 -530 / -530 Weight 78.2 kg Intake: IV 240 / 240 120 / 120 Ancef Inj 2,000 MG In NS Inj 240 / 240 120 / 120 100 ML @ 240 mls/hr IV.SIG Q8H JONATHON Rx#:[id number] Oral 720 / 720 Other 240 / 240 Output: Urine 850 / 850 650 / 650 Other: Other Intake Source Saline Solution # Voids 3 # Incontinent Voids 2 Date of Last Bowel Movement 11/28/17 11/26/17 11/28/17 # Bowel Movements 1 Imaging: ITS Impressions Head CTA 11/04/17 05:39 CONCLUSION: 1. Patient is left vertebral dominant. 2. Otherwise, intracranial vessels are all patent without embolic or aneurysmal disease. Neck CTA 11/04/17 05:39 CONCLUSION: 1. Patient is left vertebral dominant. 2. Otherwise, arch and cervical vessels are patent throughout. Head MRI 11/13/17 00:00 CONCLUSION: 1. Evolving bilateral areas of infarction. There is mild mass effect on the left lateral ventricle particularly the posterior horn which is effaced. Chest X-Ray 11/16/17 06:00 CONCLUSION: Increasing indistinctness and engorgement of the central bronchopulmonary markings suggestive of pulmonary edema. Knee X-Ray 11/17/17 00:00 CONCLUSION: No acute findings. Shoulder X-Ray 11/17/17 00:00 CONCLUSION: No acute bony abnormalities. Head CT 11/24/17 02:28 CONCLUSION: Stable head CT with bilateral parietal and left frontal lobe edema reportedly related to recent infarcts. There is no midline shift or herniation. . Physical Exam: GENERAL: Awake, and following, NAD. Has expressive aphasia SKIN: Warm and dry. No generalized rash. EYES: [place] conjunctiva. Has petechia on L conjunctiva. Pupils equal, round and reactive to light. No scleral icterus. OROPHARYNX: Moist mucosa. NECK: Trachea midline. Supple and not tender, no meningeal signs CARDIOVASCULAR: Regular rate and rhythm. Systolic murmur at the left sternal border. RESPIRATORY: Decreased at bases ABDOMEN: Soft, nondistended. Bowel sounds present and normoactive.Not tender EXTREMITIES: No clubbing, cyanosis. No joint effusion. NEUROLOGICAL: Not moving the right upper and lower extremity. PSYCHIATRIC: Cooperative LINE: PICC no evidence of infection Assessment and Plan - Plan Impression MSSA sepsis L sided endocarditis AV, due to IVDU - has large vegetation AV, causing mild obstruction CVA with R sided weakness, aphasia, due to embolic event from his IE Persistent fevers. Resolved Respiratory failure, has bilateral infiltrates - doing well post extubation MSSA PNA, S/P Rx Recommendation Continue Ancef Continue Rifampin for synergy Labs weekly while on Abx: CBC, creatinine and LFT - will order for Saturday Will need long course of IV Abx - anticipate Abx until Dec 18 Monitor progress Per CTS not surgical candidate Clinically doing well from ID standpoint Discharge planning - still being determined
--- NOTE | 2017-11-29 13:40 | P.DIET ---
Nutritional Evaluation Type of nutrition evaluation: follow-up (Previous TF) Nutrition consult regarding: Tube Feeding Nutrition screening: MDC (Calorie Counting) Screening comments: Calorie counts ran from 11/26- today. Unfortunately, no information was recorded on the meal tickets. Will need to re-run the calorie counts next week. Subjective Subjective Comments: PO intake has been 25-50%. Pt's mother has voiced concern about his poor po intake. Objective - Diagnosis Sepsis, Stroke Symptoms, r/o septic emboli of the brain - Objective % IBW: 116 (IBW = 142#) Body Weight Used for Calculations: Actual (81.6 kg) Energy Needs - Lower Range (kCal/kg): 25 Energy Needs - Upper Range (kCal/kg): 30 Lower Limit kCal/kg (kCals): 2,040 Upper Limit kCal/kg (kCals): 2,448 Lower Limit Protein Factor (Grams per Kg): 1.2 Upper Limit Protein Factor (Grams per Kg): 1.6 Lower Protein Needs (Protein): 98 Upper Protein Needs (Protein): 131 Dietitian Reviewed in Medical Record: Current diet, Curent medications, Intake & Output, Labs Diet Order: Heart Healthy Objective Comments: Med hx includes IVDU, DM, HTN Feeding - Current Tube Feeding Tube Feeding Rate: 55 Assessment Assessment: Pt was extubated on 11/13 and is on a Heart Healthy diet. He currently is unable to really communicate well. His PO intake is relatively poor and he is receiving Ensure Enlive TID on his trays. Weights reviewed: CBW 78.2 kg which indicates ~10# wt loss since admission. Calorie count initiated per Dr's order, however, no meals were recorded. Will repeat calorie counts next week. Recommendations: 1. Continue Heart Healthy diet 2. Ensure Enlive TID. 3. Repeat Calorie counts next week Dietitian to Monitor: Lab values, Supplement acceptance, Intake & Output, Diet tolerance, Weight change, PO Intake, Swallow recommendations, Medical course
[2017-11-29] MEDS: Senna/Docusate Sodium 8.6/50 MG Tablet PO SCH ×2 (18:11→21:11)
[2017-11-29] MEDS: Hypromellose 0.3% Opth Gel 10 GM Bottle EACH EYE SCH (21:11)
[2017-11-30] MEDS: Oral Hygiene Kit OROPHARYNG SCH ×4 (00:05→17:10)
--- NOTE | 2017-11-30 07:37 | P.PN ---
Subjective Interval history: Follow-up on patient with MSSA bacteremia, endocarditis, septic emboli, CVA. Patient seen and examined. Patient sitting up on side of bed eating breakfast. Moving his RUE and RLE much better today. He denies any acute medical complaints. DW nursing staff, no acute issues noted. Physical Exam Vital signs: Vital Signs 11/29/17 08:00 11/29/17 12:00 11/29/17 16:00 Temperature 97.9 F 99.2 F 98.6 F Pulse Rate 99 H 98 H 104 H Respiratory Rate 16 Blood Pressure 134/63 109/55 L 123/58 L Pulse Oximetry 97 96 94 L 11/29/17 20:00 11/30/17 00:00 11/30/17 04:00 Temperature 98.2 F 98.1 F 97.5 F L Pulse Rate 100 H 99 H 111 H Respiratory Rate 18 Blood Pressure 120/56 L 127/59 L 127/59 L Pulse Oximetry 94 L 98 97 11/30/17 07:16 Temperature Pulse Rate Respiratory Rate 15 Blood Pressure Pulse Oximetry Intake & Output 11/29/17 11/30/17 11/30/17 18:59 06:59 18:59 Intake Total 1260 / 1260 240 / 240 Output Total 650 / 650 650 / 650 Balance 610 / 610 -410 / -410 Weight 78.2 kg Intake: IV 120 / 120 240 / 240 Ancef Inj 2,000 MG In NS Inj 120 / 120 240 / 240 100 ML @ 240 mls/hr IV.SIG Q8H JONATHON Rx#:[id number] Oral 900 / 900 Other 240 / 240 Output: Urine 650 / 650 650 / 650 Other: Other Intake Source Saline Solution # Voids 3 # Incontinent Voids 1 Date of Last Bowel Movement 11/28/17 11/26/17 Narrative: GENERAL: WDWN male patient, INAD. Awake and alert. +Expressive aphasia. Sitting up in bed eating breakfast. SKIN: Warm and dry. No generalized rash. HEENT: Atraumatic. Normocephalic. Pupils equal and round. No scleral icterus. No nasal bleeding or discharge. Mucous membranes pink and moist. NECK: Trachea midline. Airway patent. CARDIOVASCULAR: Regular rate and rhythm. +Systolic murmur. RESPIRATORY: No accessory muscle use. Clear to auscultation anteriorly. Breath sounds equal bilaterally. GASTROINTESTINAL: Abdomen soft, non-tender, nondistended. +BS. MUSCULOSKELETAL: Extremities without clubbing, cyanosis, or edema. No obvious deformities. NEUROLOGICAL: Awake. Able to spontaneously move right upper and lower extremity some. Good motor and sensory function in left upper and lower extremity. Follows commands. +Expressive aphasia. PSYCHIATRIC: Calm and cooperative with exam. - Urinary Catheter Management Indwelling Urethral Catheter Cath placed during this visit: no Reason for continuing: Not indwelling catheter Condom Cath placed during this visit: yes Reason for continuing: Not indwelling catheter Insertion date: 11/12/17 Straight Cath placed during this visit: no Reason for continuing: Not indwelling catheter Results - Labs CBC & Chem 7: 11/25/17 07:35 11/25/17 07:35 Assessment and Plan - Assessment (1) Endocarditis Code(s): I38 - Endocarditis, valve unspecified Status: Acute (2) Sepsis Code(s): A41.9 - Sepsis, unspecified organism Status: Acute (3) Stroke, embolic Code(s): I63.9 - Cerebral infarction, unspecified Status: Acute (4) IV drug abuse Code(s): F19.10 - Other psychoactive substance abuse, uncomplicated Status: Acute (5) MSSA bacteremia Code(s): R78.81 - Bacteremia Status: Acute - Plan 31 year old male with history of IVDU admitted 11/04 after he was found on the floor of his apartment altered with right-sided hemiparesis. The patient had originally presented to the ER on 10/30 with fevers and back pain. At that visit , MRI of the back was negative and he was discharged home. Blood cultures ended up returning positive for MSSA in 4 out of the 4 bottles. The patient was attempted to be contacted but unfortunately he could not be reached. Upon presentation back to the ED, CT brain demonstrated a small amount of subarachnoid blood and small areas of decreased density suggestive of acute infarcts, and MRI confirmed multiple small areas of infarct. He was admitted to the typesetter perforator operator service where bedside echocardiogram revealed a large mobile mass ont he aortic valve with associated severe AV regurgitation. He was also found to have an INR of 9.8 with a concern that the IV drugs he was using were contaminated. He was transfused 4 units of FFP and FEIBA with normalization of his INR. He was intubated on 11/05 for acute respiratory failure, self-extubated 11/07 with subsequent reintubation later that day, and has since been extubated on 11/13. 11/30 Moving his RUE and RLE better. He is stable. He denies any complaints. Continue IV abx per ID. Discussed with nursing staff, no acute issues noted. Infectious MSSA bacteremia [place] AV endocarditis secondary to IV drug use Septic emboli Pneumonia Lactic acidosis - resolved - Blood cultures from 10/30, 11/04, 11/05, 11/06, and 11/07 + for MSSA - Repeat blood culture from 11/08, 11/09, and 11/11 NGTD - WBC normal - 2D echo demonstrating EF of 60-65% and a 1.7 x 1.0 cm large vegetation on the aortic valve with severe AV regurgitation - ID following, appreciate assistance. s/p PICC line placement. Discharge planning still in progress. - On cefazolin and Rifampin until 12/18 - Weekly CBC, creatinine and LFTs - next lab draw 12/02/17 Respiratory Acute respiratory failure - resolved Aspiration PNA MSSA sputum - Extubated since 11/13 - CXR 11/16 w/ findings suggestive of pulmonary edema - Supplemental O2 to maintain sats >92% - Completed course of Levaquin for aspiration - Bronchodilators Cardiovascular Cardiogenic shock Severe AV regurgitation Hypertension - Continue amlodipine 5 mg 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 Subarachnoid bleed - resolved IVDU Seizures Fall 11/17 - Imaging: * Head CT 11/04 with new infarct R parietal lobe, faint subarachnoid hemorrhage over high parietal convex bilaterally * Head and neck CTA negative * MRI 11/04 with multiple infarcts suggesting embolic occlusion * Repeat head CT 11/05 with new large area of edema in L MCA territory with no significant mass effect or midline shift, cerebellar areas of edema, and apparent resolution of SAH * Repeat head CT 11/06 and 11/12 with stable edema, no new hemorrhage or infarct * MRI brain 11/13 showing evolving bilateral areas of infarction with mild mass effect on L lateral ventricle * EEG 11/04 w/ moderate diffuse encephalopathy but no seizure activity * Repeat EEG 11/12 abnormal but no apparent evidence of epileptiform features * CT head 11/17 after patient fell out of bed showing evolving left MCA territory and R parietal lobe infarcts with localized mass effect and probably petechial hemorrhage. No significant midline shift. Repeat CT Head 11/24 stable - Neurosurgery consulted, no surgical intervention at this time - Neurology following, ready for rehab neuro-mcdaniels. - Continue Keppra 1000mg BID - Continue on Seroquel and Lexapro - PT recommending rehab - ST recommending regular, thin liquids - Poor po intake. 11lb wt loss since admission. Needle Board Repairer consulted for calorie count 11/26 to 11/29. Per note, no meals recorded. Plan to repeat calorie count next week. Heme Elevated INR at 9.8 - resolved Salicylate elevation Anemia - Elevated INR likely secondary to IV drug contamination - Corrected after 4 units FFP and FEIBA - Anemia likely secondary to acute illness - H&H stable - Hemodynamically stable - No signs of acute bleeding DVT prophylaxis: holding pharmacologic DVT prophylaxis due to risks of hemorrhagic conversion GI prophylaxis: PPI Discharge Planning: PT HAS NO INSURANCE FOR REHAB SERVICES. DISABILITY PAPERWORK WILL BE FILLED PER [facility] AT [facility]. (2) Sepsis Qualifiers: Sepsis type: sepsis due to unspecified organism Qualified Code(s): A41.9 - Sepsis, unspecified organism
[2017-11-30] MEDS: QUEtiapine 25 MG Tablet PO SCH (09:02)
[2017-11-30] MEDS: Famotidine 20 MG Tablet PO SCH ×2 (09:02→21:31)
[2017-11-30] MEDS: amLODIPine 5 MG Tablet PO SCH (09:02)
[2017-11-30] MEDS: levETIRAcetam 500 MG Tablet PO SCH ×2 (09:02→21:31)
[2017-11-30] MEDS: Senna/Docusate Sodium 8.6/50 MG Tablet PO SCH ×2 (09:02→21:31)
[2017-11-30] MEDS: Escitalopram 10 MG Tablet PO SCH (09:02)
[2017-11-30] MEDS: Heparin Central Flush 100 UNIT/ML 5 ML Vial IV.FLUSH SCH (09:02)
[2017-11-30] MEDS: Chlorhexidine 0.12% Oral Kit 15 ML UDC OROPHARYNG SCH ×2 (09:03→21:30)
[2017-11-30] MEDS: Hypromellose 0.3% Opth Gel 10 GM Bottle EACH EYE SCH (21:32)
[2017-12-01] MEDS: Oral Hygiene Kit OROPHARYNG SCH ×4 (00:33→19:05)
--- NOTE | 2017-12-01 03:18 | XR ---
EXAM DATE: 12/01/2017 3:15 AM EDT AGE/SEX: 31 years / Male INDICATIONS: PICC line placement. CLINICAL DATA: This is the patient's subsequent encounter. Patient reports that signs and symptoms h ave been present for 1 month and indicates a pain score of 0/10. MEDICAL/SURGICAL HISTORY: . Hypertension. HIV. Stroke. IV drug Diabetes mellitus type II None . COMPARISON: [facility], CHEST 1V SINGLE AP, 11/16/2017. . FINDINGS: There is a PICC line in place from the left arm with the tip overlying the SVC. A pneumothorax is not seen. The heart size is normal. The lungs are grossly clear. CONCLUSION: PICC line in good position. Electronically signed by: Yossi Thacker MD 12/01/2017 3:16 AM EDT
--- NOTE | 2017-12-01 07:40 | P.PN ---
Subjective Interval history: Patient is stable. No significant changes. He is not in any distress. C/o right arm pain difficult to fully assess due to patients severe aphasia. VSS, afebrile. DW nursing staff, no acute issues. Physical Exam Vital signs: Vital Signs 11/30/17 08:00 11/30/17 12:00 11/30/17 16:00 Temperature 98.2 F 97.9 F 97.8 F Pulse Rate 102 H 111 H 104 H Respiratory Rate 18 Blood Pressure 117/56 L 115/58 L 125/60 Pulse Oximetry 93 L 94 L 95 11/30/17 20:00 12/01/17 00:00 12/01/17 04:00 Temperature 98.8 F 98.6 F 98.8 F Pulse Rate 98 H 99 H 100 H Respiratory Rate 16 16 16 Blood Pressure 116/78 102/48 L 119/50 L Pulse Oximetry 97 95 96 Intake & Output 11/30/17 12/01/17 12/01/17 18:59 06:59 18:59 Intake Total 900 / 900 1012 / 1012 Output Total 750 / 750 600 / 600 Balance 150 / 150 412 / 412 Weight 77 kg Intake: IV 120 / 120 240 / 240 Ancef Inj 2,000 MG In NS Inj 120 / 120 240 / 240 100 ML @ 240 mls/hr IV.SIG Q8H JONATHON Rx#:[id number] Oral 780 / 780 772 / 772 Output: Urine 750 / 750 600 / 600 Other: # Voids 4 Date of Last Bowel Movement 11/29/17 11/26/17 # Bowel Movements 1 Narrative: GENERAL: WDWN male patient. Awake and alert. +Expressive aphasia. Appears comfortable. Not in any distress. SKIN: Warm and dry. No generalized rash. HEENT: Atraumatic. Normocephalic. Pupils equal and round. No scleral icterus. No nasal bleeding or discharge. Mucous membranes pink and moist. NECK: Trachea midline. Airway patent. CARDIOVASCULAR: Regular rate and rhythm. +Systolic murmur. RESPIRATORY: No accessory muscle use. Clear to auscultation anteriorly. Breath sounds equal bilaterally. GASTROINTESTINAL: Abdomen soft, non-tender, nondistended. +BS. MUSCULOSKELETAL: Extremities without clubbing, cyanosis, or edema. No obvious deformities. NEUROLOGICAL: Awake. Able to spontaneously move right upper and lower extremity some. Good motor and sensory function in left upper and lower extremity. Follows commands. +Expressive aphasia. PSYCHIATRIC: Calm and cooperative with exam. - Urinary Catheter Management Indwelling Urethral Catheter Cath placed during this visit: no Reason for continuing: Not indwelling catheter Condom Cath placed during this visit: yes Reason for continuing: Not indwelling catheter Insertion date: 11/12/17 Straight Cath placed during this visit: no Reason for continuing: Not indwelling catheter Results - Labs CBC & Chem 7: 11/25/17 07:35 11/25/17 07:35 - Imaging Impressions Chest X-Ray 12/01/17 02:57 CONCLUSION: PICC line in good position. Assessment and Plan - Assessment (1) Endocarditis Code(s): I38 - Endocarditis, valve unspecified Status: Acute (2) Sepsis Code(s): A41.9 - Sepsis, unspecified organism Status: Acute (3) Stroke, embolic Code(s): I63.9 - Cerebral infarction, unspecified Status: Acute (4) IV drug abuse Code(s): F19.10 - Other psychoactive substance abuse, uncomplicated Status: Acute (5) MSSA bacteremia Code(s): R78.81 - Bacteremia Status: Acute - Plan 31 year old male with history of IVDU admitted 11/04 after he was found on the floor of his apartment altered with right-sided hemiparesis. The patient had originally presented to the ER on 10/30 with fevers and back pain. At that visit , MRI of the back was negative and he was discharged home. Blood cultures ended up returning positive for MSSA in 4 out of the 4 bottles. The patient was attempted to be contacted but unfortunately he could not be reached. Upon presentation back to the ED, CT brain demonstrated a small amount of subarachnoid blood and small areas of decreased density suggestive of acute infarcts, and MRI confirmed multiple small areas of infarct. He was admitted to the senior environmental technician service where bedside echocardiogram revealed a large mobile mass ont he aortic valve with associated severe AV regurgitation. He was also found to have an INR of 9.8 with a concern that the IV drugs he was using were contaminated. He was transfused 4 units of FFP and FEIBA with normalization of his INR. He was intubated on 11/05 for acute respiratory failure, self-extubated 11/07 with subsequent reintubation later that day, and has since been extubated on 11/13. 12/01 C/O right arm pain ?neuropathic. Will start low dose Gabapentin scheduled and muscle relaxant prn. DW nursing staff. Infectious MSSA bacteremia [place] AV endocarditis secondary to IV drug use Septic emboli Pneumonia Lactic acidosis - resolved - Blood cultures from 10/30, 11/04, 11/05, 11/06, and 11/07 + for MSSA - Repeat blood culture from 11/08, 11/09, and 11/11 NGTD - WBC normal - 2D echo demonstrating EF of 60-65% and a 1.7 x 1.0 cm large vegetation on the aortic valve with severe AV regurgitation - ID following, appreciate assistance. s/p PICC line placement. Discharge planning still in progress. - On cefazolin and Rifampin until 12/18 - Weekly CBC, creatinine and LFTs - next lab draw 12/02/17 Respiratory Acute respiratory failure - resolved Aspiration PNA MSSA sputum - Extubated since 11/13 - CXR 11/16 w/ findings suggestive of pulmonary edema - Supplemental O2 to maintain sats >92% - Completed course of Levaquin for aspiration - Bronchodilators Cardiovascular Cardiogenic shock Severe AV regurgitation Hypertension - Continue amlodipine 5 mg 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 Subarachnoid bleed - resolved IVDU Seizures Fall 11/17 - Imaging: * Head CT 11/04 with new infarct R parietal lobe, faint subarachnoid hemorrhage over high parietal convex bilaterally * Head and neck CTA negative * MRI 11/04 with multiple infarcts suggesting embolic occlusion * Repeat head CT 11/05 with new large area of edema in L MCA territory with no significant mass effect or midline shift, cerebellar areas of edema, and apparent resolution of SAH * Repeat head CT 11/06 and 11/12 with stable edema, no new hemorrhage or infarct * MRI brain 11/13 showing evolving bilateral areas of infarction with mild mass effect on L lateral ventricle * EEG 11/04 w/ moderate diffuse encephalopathy but no seizure activity * Repeat EEG 11/12 abnormal but no apparent evidence of epileptiform features * CT head 11/17 after patient fell out of bed showing evolving left MCA territory and R parietal lobe infarcts with localized mass effect and probably petechial hemorrhage. No significant midline shift. Repeat CT Head 11/24 stable - Neurosurgery consulted, no surgical intervention at this time - Neurology following, ready for rehab neuro-mcdaniels. - Continue Keppra 1000mg BID - Continue on Seroquel and Lexapro - PT recommending rehab - ST recommending regular, thin liquids - Poor po intake. 11lb wt loss since admission. Line Production Cook consulted for calorie count 11/26 to 11/29. Per note, no meals recorded. Plan to repeat calorie count next week. Heme Elevated INR at 9.8 - resolved Salicylate elevation Anemia - Elevated INR likely secondary to IV drug contamination - Corrected after 4 units FFP and FEIBA - Anemia likely secondary to acute illness - H&H stable - Hemodynamically stable - No signs of acute bleeding DVT prophylaxis: holding pharmacologic DVT prophylaxis due to risks of hemorrhagic conversion GI prophylaxis: PPI Code Status: FULL Discussed Condition With: patient, nursing staff, Dr. Mojica Discharge Planning: PT HAS NO INSURANCE FOR REHAB SERVICES. DISABILITY PAPERWORK WILL BE FILLED PER [facility] AT [facility]. (2) Sepsis Qualifiers: Sepsis type: sepsis due to unspecified organism Qualified Code(s): A41.9 - Sepsis, unspecified organism
[2017-12-01] MEDS: levETIRAcetam 500 MG Tablet PO SCH ×2 (08:42→21:35)
[2017-12-01] MEDS: Escitalopram 10 MG Tablet PO SCH (08:43)
[2017-12-01] MEDS: Senna/Docusate Sodium 8.6/50 MG Tablet PO SCH ×2 (08:43→21:42)
[2017-12-01] MEDS: amLODIPine 5 MG Tablet PO SCH (08:43)
[2017-12-01] MEDS: Famotidine 20 MG Tablet PO SCH ×2 (08:43→21:42)
[2017-12-01] MEDS: QUEtiapine 25 MG Tablet PO SCH (08:43)
[2017-12-01] MEDS: Heparin Central Flush 100 UNIT/ML 5 ML Vial IV.FLUSH SCH (08:44)
[2017-12-01] MEDS: Chlorhexidine 0.12% Oral Kit 15 ML UDC OROPHARYNG SCH ×2 (08:44→21:45)
[2017-12-01] MEDS: Gabapentin 100 MG Capsule PO SCH (19:05)
[2017-12-01] MEDS: Hypromellose 0.3% Opth Gel 10 GM Bottle EACH EYE SCH (21:47)
[2017-12-02] MEDS: Oral Hygiene Kit OROPHARYNG SCH ×3 (04:48→17:19)
[2017-12-02 06:42] LABS: Baso # (Auto) 0.1 th/mm3 (0.0-0.2); Baso % (Auto) 1.2 % (0.0-2.0); Eos # (Auto) 0.2 th/mm3 (0.0-0.4); Eos % (Auto) 2.8 % (0.0-4.0); Hematocrit 29.3 % (39.0-51.0); Hemoglobin 9.6 gm/dL (13.0-17.0); Lymph # (Auto) 2.3 th/mm3 (1.0-4.8); Lymph % (Auto) 29.2 % (9.0-44.0); Mean Corpuscular HGB Conc 32.8 % (32.0-36.0); Mean Corpuscular Hemoglobin 28.7 pg (27.0-34.0); Mean Corpuscular Volume 87.4 fL (80.0-100.0); Mean Platelet Volume 9.3 fL (7.0-11.0); Mono # (Auto) 0.6 th/mm3 (0.0-0.9); Mono % (Auto) 7.6 % (0.0-8.0); Neut # (Auto) 4.6 th/mm3 (1.8-7.7); Neut % (Auto) 59.2 % (16.0-70.0); Platelet Count 188 th/mm3 (150-450); Red Blood Count 3.36 mil/mm3 (4.50-5.90); Red Cell Distribution Width 14.3 % (11.6-17.2); White Blood Count 7.8 th/mm3 (4.0-11.0)
[2017-12-02 07:08] LABS: Albumin 2.3 g/dL (3.4-5.0); Anion Gap 11 meq/L (5-15); Aspartate Aminotransferase 17 U/L (15-37); Blood Urea Nitrogen 11 mg/dL (7-18); Calcium 8.6 mg/dL (8.5-10.1); Carbon Dioxide 23.1 meq/L (21.0-32.0); Chloride 105 meq/L (98-107); Glomerular Filtration Rate Greater Than 89 mL/min (>89); Glucose,Random 82 mg/dL (74-106); Potassium 3.8 meq/L (3.5-5.1); Sodium 139 meq/L (136-145)
[2017-12-02 07:13] LABS: Alanine Aminotransferase 13 U/L (12-78); Alkaline Phosphatase 59 U/L (45-117); Total Protein 8.1 g/dL (6.4-8.2)
--- NOTE | 2017-12-02 07:22 | P.PN ---
Subjective Interval history: Patient encountered working in his room with therapy. Patient appears comfortable. Does not appear to have any new complaints. Afebrile. VSS. Physical Exam Vital signs: Vital Signs 12/01/17 08:00 12/01/17 12:00 12/01/17 16:00 Temperature 97.5 F L 97.5 F L 98.1 F Pulse Rate 99 H 99 H 98 H Respiratory Rate 18 19 Blood Pressure 124/57 L 124/57 L 112/78 Pulse Oximetry 95 95 96 12/01/17 20:00 12/02/17 00:00 12/02/17 04:00 Temperature 98.1 F 98.1 F 98.2 F Pulse Rate 104 H 107 H 102 H Respiratory Rate Blood Pressure 109/53 L 96/47 L 96/46 L Pulse Oximetry 96 97 95 Intake & Output 12/01/17 12/02/17 12/02/17 18:59 06:59 18:59 Intake Total 900 / 900 240 / 240 Output Total 550 / 550 500 / 500 Balance 350 / 350 -260 / -260 Weight 78.8 kg Intake: IV 120 / 120 240 / 240 Ancef Inj 2,000 MG In NS Inj 120 / 120 240 / 240 100 ML @ 240 mls/hr IV.SIG Q8H JONATHON Rx#:[id number] Oral 780 / 780 Output: Urine 550 / 550 500 / 500 Other: # Voids 3 Date of Last Bowel Movement 11/29/17 12/01/17 Narrative: GENERAL: WDWN male patient, INAD. Awake and alert. +Expressive aphasia. Working with therapy. SKIN: Warm and dry. No generalized rash. HEENT: Atraumatic. Normocephalic. Pupils equal and round. No scleral icterus. No nasal bleeding or discharge. Mucous membranes pink and moist. NECK: Trachea midline. Airway patent. CARDIOVASCULAR: Regular rate and rhythm. +Systolic murmur. RESPIRATORY: No accessory muscle use. Clear to auscultation anteriorly. Breath sounds equal bilaterally. GASTROINTESTINAL: Abdomen soft, non-tender, nondistended. +BS. MUSCULOSKELETAL: Extremities without clubbing, cyanosis, or edema. No obvious deformities. NEUROLOGICAL: Awake. Able to spontaneously move right upper and lower extremity spontaneously. Good motor and sensory function in left upper and lower extremity. Follows commands. +Expressive aphasia. PSYCHIATRIC: Calm and cooperative with exam. - Urinary Catheter Management Indwelling Urethral Catheter Cath placed during this visit: no Reason for continuing: Not indwelling catheter Condom Cath placed during this visit: yes Reason for continuing: Not indwelling catheter Insertion date: 11/12/17 Straight Cath placed during this visit: no Reason for continuing: Not indwelling catheter Results - Labs CBC & Chem 7: 12/02/17 06:00 12/02/17 06:00 Laboratory Results - last 24 hr 12/02/17 12/02/17 06:00 06:00 WBC 7.8 RBC 3.36 L Hgb 9.6 L Hct 29.3 L MCV 87.4 MCH 28.7 MCHC 32.8 RDW 14.3 Plt Count 188 MPV 9.3 Neut % (Auto) 59.2 Lymph % (Auto) 29.2 [place] % (Auto) 7.6 Eos % (Auto) 2.8 Baso % (Auto) 1.2 Neut # (Auto) 4.6 Lymph # (Auto) 2.3 [place] # (Auto) 0.6 Eos # (Auto) 0.2 Baso # (Auto) 0.1 WBC Differential . Differential Comment Auto diff final Sodium 139 Potassium 3.8 Chloride 105 Carbon Dioxide 23.1 Anion Gap 11 BUN 11 Creatinine 0.74 Estimated GFR Greater than 89 Random Glucose 82 Calcium 8.6 Total Bilirubin 0.5 AST 17 ALT 13 Alkaline Phosphatase 59 Total Protein 8.1 D Albumin 2.3 L Assessment and Plan - Assessment (1) Endocarditis Code(s): I38 - Endocarditis, valve unspecified Status: Acute (2) Sepsis Code(s): A41.9 - Sepsis, unspecified organism Status: Acute (3) Stroke, embolic Code(s): I63.9 - Cerebral infarction, unspecified Status: Acute (4) IV drug abuse Code(s): F19.10 - Other psychoactive substance abuse, uncomplicated Status: Acute (5) MSSA bacteremia Code(s): R78.81 - Bacteremia Status: Acute - Plan 31 year old male with history of IVDU admitted 11/04 after he was found on the floor of his apartment altered with right-sided hemiparesis. The patient had originally presented to the ER on 10/30 with fevers and back pain. At that visit , MRI of the back was negative and he was discharged home. Blood cultures ended up returning positive for MSSA in 4 out of the 4 bottles. The patient was attempted to be contacted but unfortunately he could not be reached. Upon presentation back to the ED, CT brain demonstrated a small amount of subarachnoid blood and small areas of decreased density suggestive of acute infarcts, and MRI confirmed multiple small areas of infarct. He was admitted to the per diem physical therapist assistant service where bedside echocardiogram revealed a large mobile mass ont he aortic valve with associated severe AV regurgitation. He was also found to have an INR of 9.8 with a concern that the IV drugs he was using were contaminated. He was transfused 4 units of FFP and FEIBA with normalization of his INR. He was intubated on 11/05 for acute respiratory failure, self-extubated 11/07 with subsequent reintubation later that day, and has since been extubated on 11/13. 12/02 Not in any acute distress. No significant change. Afebrile, VSS. DW nursing staff, no acute issues. 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 s/p PICC line placement. Discharge planning still in progress. - On cefazolin and Rifampin until 12/18 - Weekly CBC, creatinine and LFTs - next lab draw 12/09/17 Respiratory Acute respiratory failure - resolved Aspiration PNA MSSA sputum - Extubated since 11/13 - CXR 11/16 w/ findings suggestive of pulmonary edema - Supplemental O2 to maintain sats >92% - Completed course of Levaquin for aspiration - Bronchodilators Cardiovascular Cardiogenic shock Severe AV regurgitation Hypertension - Continue amlodipine 5 mg 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 Subarachnoid bleed - resolved Right sided hemiparesis, resolving IVDU Seizures Fall 11/17 - Imaging: * Head CT 11/04 with new infarct R parietal lobe, faint subarachnoid hemorrhage over high parietal convex bilaterally * Head and neck CTA negative * MRI 11/04 with multiple infarcts suggesting embolic occlusion * Repeat head CT 11/05 with new large area of edema in L MCA territory with no significant mass effect or midline shift, cerebellar areas of edema, and apparent resolution of SAH * Repeat head CT 11/06 and 11/12 with stable edema, no new hemorrhage or infarct * MRI brain 11/13 showing evolving bilateral areas of infarction with mild mass effect on L lateral ventricle * EEG 11/04 w/ moderate diffuse encephalopathy but no seizure activity * Repeat EEG 11/12 abnormal but no apparent evidence of epileptiform features * CT head 11/17 after patient fell out of bed showing evolving left MCA territory and R parietal lobe infarcts with localized mass effect and probably petechial hemorrhage. No significant midline shift. Repeat CT Head 11/24 stable - Neurosurgery consulted, no surgical intervention at this time - Neurology following, ready for rehab neuro-mcdaniels. - Continue Keppra 1000mg BID. No seizure activity reported - Continue on Seroquel and Lexapro - Continue with PT/OT. Started on Gabapentin low dose for neuropathic pain RUE. Will plan to increase dose in the next several days. - ST recommending regular, thin liquids - Poor po intake. 11lb wt loss since admission. Nurse Technician consulted for calorie count 11/26 to 11/29. Per note, no meals recorded. Plan to repeat calorie count this week. Nurse Technician reconsulted. Heme Elevated INR at 9.8 - resolved Salicylate elevation Anemia - Elevated INR likely secondary to IV drug contamination - Corrected after 4 units FFP and FEIBA - Anemia likely secondary to acute illness - H&H stable - Hemodynamically stable - No signs of acute bleeding DVT prophylaxis: holding pharmacologic DVT prophylaxis due to risks of hemorrhagic conversion GI prophylaxis: PPI Code Status: FULL Discussed Condition With: patient, nursing staff, Dr. Elizabeth Discharge Planning: PT HAS NO INSURANCE FOR REHAB SERVICES. DISABILITY PAPERWORK WILL BE FILLED PER [facility]. (2) Sepsis Qualifiers: Sepsis type: sepsis due to unspecified organism Qualified Code(s): A41.9 - Sepsis, unspecified organism
--- NOTE | 2017-12-02 09:04 | P.PNNEU ---
Subjective Active Medications: Active Medications Acetaminophen (Tylenol) 650 mg PO Q6H PRN PRN Reason: TEMPERATURE > 101 F Last Admin: 11/12/17 01:19 Dose: 650 mg Albuterol (Albuterol Neb (Prn)) 2.5 mg NEB Q2HR NEB PRN PRN Reason: DYSPNEA Amlodipine Besylate (Norvasc) 5 mg PO DAILY [facility] Last Admin: 12/01/17 08:43 Dose: 5 mg Artificial Tears (Genteal Severe Dry Eye Relief 0.3% Opth Gel) 1 drops EACH EYE HS [facility] Last Admin: 12/01/17 21:47 Dose: 1 drops Chlorhexidine Gluconate (Peridex 0.12% Oral Kit) 15 ml OROPHARYNG BID@0800, 2000 [facility] Last Admin: 12/01/17 21:45 Dose: Not Given Clonidine HCl (Catapres) 0.1 mg PO Q6H PRN PRN Reason: SBP>160, DBP>90 Cyclobenzaprine HCl (Flexeril) 5 mg PO BID PRN PRN Reason: SPASM Escitalopram Oxalate (Lexapro) 10 mg PO DAILY [facility] Last Admin: 12/01/17 08:43 Dose: 10 mg Famotidine (Pepcid) 20 mg PO BID [facility] Last Admin: 12/01/17 21:42 Dose: 20 mg Flumazenil (Romazecon Inj) 0.2 mg IV.PUSH Q1M PRN PRN Reason: OVERSEDATION Gabapentin (Neurontin) 100 mg PO TID [facility] Last Admin: 12/01/17 19:05 Dose: 100 mg Heparin Sodium (Porcine) (Heparin Central Flush) 0 unit IV.FLUSH DAILY [facility] Last Admin: 12/01/17 08:44 Dose: 200 unit Heparin Sodium (Porcine) (Heparin Central Flush) 0 unit IV.FLUSH PRN PRN PRN Reason: Flush PICC Line Hyoscyamine (Levsin Liq) 0.125 mg SL Q4H PRN PRN Reason: SECRETIONS Cefazolin Sodium 2,000 mg/ (Sodium Chloride) 120 mls @ 240 mls/hr IV.SIG Q8H [facility] Stop: 12/18/17 23:00 Last Infusion: 12/02/17 04:30 Dose: Infused Labetalol HCl (Trandate Inj) 10 mg IV.PUSH Q1H PRN PRN Reason: SYS BP GREATER THAN 160 MMHG Levetiracetam (Keppra) 1,000 mg PO BID [facility] Last Admin: 12/01/17 21:35 Dose: 1,000 mg Nitroglycerin (Nitro-Bid 2% Oint) 1 inch TOPICAL Q6HR PRN PRN Reason: SBP>160, DBP>90 Ondansetron HCl (Zofran Odt) 4 mg PO Q6H PRN PRN Reason: NAUSEA OR VOMITING Potassium Bicarb/Potassium Chloride (K-Lyte Cl Eff) 50 meq PO ONCE [facility] Last Admin: 11/04/17 21:31 Dose: 50 meq Quetiapine Fumarate (Seroquel) 25 mg PO DAILY [facility] Last Admin: 12/01/17 08:43 Dose: 25 mg Rifampin (Rifampin) 300 mg PO Q12HR [facility] Last Admin: 12/01/17 21:42 Dose: 300 mg Senna/Docusate Sodium (Liv-Colace) 1 tab PO BID [facility] Last Admin: 12/01/17 21:42 Dose: 1 tab Sodium Chloride (Ns Flush) 0 ml IV.FLUSH PRN PRN PRN Reason: Flush After Blood Draws Sodium Chloride (Ns Flush) 0 ml IV.FLUSH PRN PRN PRN Reason: FLUSH AFTER USING IV ACCESS Sodium Chloride (Ns Flush) 0 ml IV.FLUSH DAILY [facility] Last Admin: 12/01/17 08:44 Dose: 10 ml Sodium Chloride (Ns Flush) 2 ml IV.FLUSH BID [facility] Last Admin: 12/01/17 21:42 Dose: 2 ml Sodium Chloride (Ns Flush) 2 ml IV.FLUSH PRN PRN PRN Reason: FLUSH AFTER USING IV ACCESS Allergies/Adverse Reactions: Allergies Allergy/AdvReac Type Severity Reaction Status Date / Time No Known Allergies Allergy Unverified 10/30/17 21:54 Physical Exam Vital signs: Vital Signs 12/01/17 12:00 12/01/17 16:00 12/01/17 20:00 Temperature 97.5 F L 98.1 F 98.1 F Pulse Rate 99 H 98 H 104 H Respiratory Rate 18 19 21 Blood Pressure 124/57 L 112/78 109/53 L Pulse Oximetry 95 96 96 12/02/17 00:00 12/02/17 04:00 Temperature 98.1 F 98.2 F Pulse Rate 107 H 102 H Respiratory Rate 18 18 Blood Pressure 96/47 L 96/46 L Pulse Oximetry 97 95 Intake & Output 12/01/17 12/02/17 12/02/17 18:59 06:59 18:59 Intake Total 900 / 900 240 / 240 Output Total 550 / 550 500 / 500 Balance 350 / 350 -260 / -260 Weight 78.8 kg Intake: IV 120 / 120 240 / 240 Ancef Inj 2,000 MG In NS Inj 120 / 120 240 / 240 100 ML @ 240 mls/hr IV.SIG Q8H JONATHON Rx#:[id number] Oral 780 / 780 Output: Urine 550 / 550 500 / 500 Other: # Voids 3 Date of Last Bowel Movement 11/29/17 12/01/17 Narrative: alert talking better moves all 4 well - Urinary Catheter Management Indwelling Urethral Catheter Cath placed during this visit: no Reason for continuing: Not indwelling catheter Condom Cath placed during this visit: yes Reason for continuing: Not indwelling catheter Insertion date: 11/12/17 Straight Cath placed during this visit: no Reason for continuing: Not indwelling catheter Objective Laboratory Results - last 24 hr 12/02/17 12/02/17 06:00 06:00 WBC 7.8 RBC 3.36 L Hgb 9.6 L Hct 29.3 L MCV 87.4 MCH 28.7 MCHC 32.8 RDW 14.3 Plt Count 188 MPV 9.3 Neut % (Auto) 59.2 Lymph % (Auto) 29.2 [place] % (Auto) 7.6 Eos % (Auto) 2.8 Baso % (Auto) 1.2 Neut # (Auto) 4.6 Lymph # (Auto) 2.3 [place] # (Auto) 0.6 Eos # (Auto) 0.2 Baso # (Auto) 0.1 WBC Differential . Differential Comment Auto diff final Sodium 139 Potassium 3.8 Chloride 105 Carbon Dioxide 23.1 Anion Gap 11 BUN 11 Creatinine 0.74 Estimated GFR Greater than 89 Random Glucose 82 Calcium 8.6 Total Bilirubin 0.5 AST 17 ALT 13 Alkaline Phosphatase 59 Total Protein 8.1 D Albumin 2.3 L Review/Management - Review/Management Plan: imp mri 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 when off sedatives? -- 11/13/17 no change leg tremor vs sz yest ct stable eeg neg sz on keppra pk to dc sedatives today on keppa 1000 bid 11/15/17 no sz loks well on keppra eeg neg stable neuro left mca cva endocarditis ready for rehab neurowise 11/18/17 dong better oob with sitter in room to prevent falls ? to floor? 11/21/17 looks much better really should be in a chair add lexapro to seroquel may calm him down some he did not have PT see him yesterday and they should work with him daily and get oob to chair he should be less agitated if in chair but hi needs sitter to prevent him form getting up on own 11/24/17 dong well overall impulsive gets agitated if needs to pee ow really much improved cont PT 12/02/17 improved neuro still some aphasia moving really well r side
[2017-12-02] MEDS: levETIRAcetam 500 MG Tablet PO SCH ×2 (09:18→21:10)
[2017-12-02] MEDS: Senna/Docusate Sodium 8.6/50 MG Tablet PO SCH ×2 (09:19→21:10)
[2017-12-02] MEDS: Famotidine 20 MG Tablet PO SCH ×2 (09:19→21:10)
[2017-12-02] MEDS: QUEtiapine 25 MG Tablet PO SCH (09:19)
[2017-12-02] MEDS: Escitalopram 10 MG Tablet PO SCH (09:19)
[2017-12-02] MEDS: Gabapentin 100 MG Capsule PO SCH ×3 (09:19→17:19)
[2017-12-02] MEDS: Heparin Central Flush 100 UNIT/ML 5 ML Vial IV.FLUSH SCH (09:20)
[2017-12-02] MEDS: amLODIPine 5 MG Tablet PO SCH (13:29)
[2017-12-02] MEDS: Chlorhexidine 0.12% Oral Kit 15 ML UDC OROPHARYNG SCH ×2 (13:29→22:48)
--- NOTE | 2017-12-02 15:26 | P.DIET ---
Nutritional Evaluation Type of nutrition evaluation: follow-up (Previous TF) Nutrition consult regarding: Tube Feeding Nutrition screening: MDC (Calorie Counting) Screening comments: Repeat Calorie Counts will run from 12/02-12/05 Subjective Subjective Comments: Per EMR Feeding Assessment the pt has been eating 75% for the past 2 days. Objective - Diagnosis Sepsis, Stroke Symptoms, r/o septic emboli of the brain - Objective % IBW: 116 (IBW = 142#) Body Weight Used for Calculations: Actual (81.6 kg) Energy Needs - Lower Range (kCal/kg): 25 Energy Needs - Upper Range (kCal/kg): 30 Lower Limit kCal/kg (kCals): 2,040 Upper Limit kCal/kg (kCals): 2,448 Lower Limit Protein Factor (Grams per Kg): 1.2 Upper Limit Protein Factor (Grams per Kg): 1.6 Lower Protein Needs (Protein): 98 Upper Protein Needs (Protein): 131 Dietitian Reviewed in Medical Record: Current diet, Curent medications, Intake & Output, Labs Diet Order: Heart Healthy Speech Therapy Recommendations: Yes Objective Comments: Med hx includes IVDU, DM, HTN Assessment Assessment: Pt was extubated on 11/13 and is on a Heart Healthy diet. He currently is unable to really communicate well. His PO intake has been poor but appears to show an improving trend. He is receiving Ensure Enlive TID on his trays. Weights reviewed: CBW 78.8 kg which indicates ~10# wt loss since admission. Repeat Calorie count initiated per Dr's order. Discussed with Dietary Supervisors to ensure that calorie counts are completed this time. LBM 12/01 Recommendations: 1. Continue Heart Healthy diet 2. Ensure Enlive TID. 3. Repeat Calorie counts 12/02-12/05 Dietitian to Monitor: Lab values, Supplement acceptance, Intake & Output, Diet tolerance, Weight change, PO Intake, Swallow recommendations, Medical course
[2017-12-02] MEDS: Hypromellose 0.3% Opth Gel 10 GM Bottle EACH EYE SCH (22:49)
[2017-12-03] MEDS: Oral Hygiene Kit OROPHARYNG SCH ×4 (01:00→17:25)
--- NOTE | 2017-12-03 07:01 | P.PN ---
Subjective Interval history: Patient is stable. No significant change. Still with significant expressive aphasia. Movement in RUE and RLE much improved. Physical Exam Vital signs: Vital Signs 12/02/17 08:00 12/02/17 12:00 12/02/17 16:00 Temperature 98.4 F 97.9 F 98.9 F Pulse Rate 94 H 107 H 103 H Respiratory Rate 18 20 20 Blood Pressure 97/46 L 121/56 L 112/53 L Pulse Oximetry 94 L 96 94 L 12/02/17 20:00 12/02/17 23:29 12/03/17 04:00 Temperature 98.9 F 99 F 97.8 F Pulse Rate 108 H 107 H 101 H Respiratory Rate 16 17 16 Blood Pressure 107/53 L 116/52 L 107/53 L Pulse Oximetry 95 94 L Intake & Output 12/02/17 12/03/17 12/03/17 18:59 06:59 18:59 Intake Total 600 / 600 240 / 240 Output Total 600 / 600 550 / 550 Balance 0 / 0 -310 / -310 Weight 76.4 kg Intake: IV 120 / 120 240 / 240 Ancef Inj 2,000 MG In NS Inj 120 / 120 240 / 240 100 ML @ 240 mls/hr IV.SIG Q8H JONATHON Rx#:[id number] Oral 480 / 480 Output: Urine 600 / 600 550 / 550 Other: # Voids 1 Date of Last Bowel Movement 12/01/17 12/01/17 # Bowel Movements 1 Narrative: GENERAL: WDWN male patient, INAD. Awake and alert, lying in bed watching tv. +Expressive aphasia. SKIN: Warm and dry. No generalized rash. HEENT: Atraumatic. Normocephalic. Pupils equal and round. No scleral icterus. No nasal bleeding or discharge. Mucous membranes pink and moist. NECK: Trachea midline. Airway patent. CARDIOVASCULAR: Regular rate and rhythm. +Systolic murmur. RESPIRATORY: No accessory muscle use. Clear to auscultation anteriorly. Breath sounds equal bilaterally. GASTROINTESTINAL: Abdomen soft, non-tender, nondistended. +BS. MUSCULOSKELETAL: Extremities without clubbing, cyanosis, or edema. No obvious deformities. NEUROLOGICAL: Awake. Able to spontaneously move right upper and lower extremity. Good motor and sensory function in left upper and lower extremity. Follows commands. +Expressive aphasia. PSYCHIATRIC: Calm and cooperative with exam. - Urinary Catheter Management Indwelling Urethral Catheter Cath placed during this visit: no Reason for continuing: Not indwelling catheter Condom Cath placed during this visit: yes Reason for continuing: Not indwelling catheter Insertion date: 11/12/17 Straight Cath placed during this visit: no Reason for continuing: Not indwelling catheter Results - Labs CBC & Chem 7: 12/02/17 06:00 12/02/17 06:00 Laboratory Results - last 24 hr 12/02/17 06:00 Sodium 139 Potassium 3.8 Chloride 105 Carbon Dioxide 23.1 Anion Gap 11 BUN 11 Creatinine 0.74 Estimated GFR Greater than 89 Random Glucose 82 Calcium 8.6 Total Bilirubin 0.5 AST 17 ALT 13 Alkaline Phosphatase 59 Total Protein 8.1 D Albumin 2.3 L Assessment and Plan - Assessment (1) Endocarditis Code(s): I38 - Endocarditis, valve unspecified Status: Acute (2) Sepsis Code(s): A41.9 - Sepsis, unspecified organism Status: Acute (3) Stroke, embolic Code(s): I63.9 - Cerebral infarction, unspecified Status: Acute (4) IV drug abuse Code(s): F19.10 - Other psychoactive substance abuse, uncomplicated Status: Acute (5) MSSA bacteremia Code(s): R78.81 - Bacteremia Status: Acute - Plan 31 year old male with history of IVDU admitted 11/04 after he was found on the floor of his apartment altered with right-sided hemiparesis. The patient had originally presented to the ER on 10/30 with fevers and back pain. At that visit , MRI of the back was negative and he was discharged home. Blood cultures ended up returning positive for MSSA in 4 out of the 4 bottles. The patient was attempted to be contacted but unfortunately he could not be reached. Upon presentation back to the ED, CT brain demonstrated a small amount of subarachnoid blood and small areas of decreased density suggestive of acute infarcts, and MRI confirmed multiple small areas of infarct. He was admitted to the produce manager service where bedside echocardiogram revealed a large mobile mass ont he aortic valve with associated severe AV regurgitation. He was also found to have an INR of 9.8 with a concern that the IV drugs he was using were contaminated. He was transfused 4 units of FFP and FEIBA with normalization of his INR. He was intubated on 11/05 for acute respiratory failure, self-extubated 11/07 with subsequent reintubation later that day, and has since been extubated on 11/13. 12/03 Patient is doing well. He is stable. Not in any distress. DW nursing staff, no overnight events. 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 s/p PICC line placement. Discharge planning still in progress. - On cefazolin and Rifampin until 12/18 - Weekly CBC, creatinine and LFTs - next lab draw 12/09/17 Respiratory Acute respiratory failure - resolved Aspiration PNA, completed course of Levaquin MSSA sputum - Extubated since 11/13 - CXR 11/16 w/ findings suggestive of pulmonary edema - Supplemental O2 to maintain sats >92%. Patient has been satting well on RA - Bronchodilators Cardiovascular Cardiogenic shock Severe AV regurgitation Hypertension - Continue amlodipine 5 mg 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 Subarachnoid bleed - resolved Right sided hemiparesis, resolving IVDU Seizures Fall 11/17 - Imaging: * Head CT 11/04 with new infarct R parietal lobe, faint subarachnoid hemorrhage over high parietal convex bilaterally * Head and neck CTA negative * MRI 11/04 with multiple infarcts suggesting embolic occlusion * Repeat head CT 11/05 with new large area of edema in L MCA territory with no significant mass effect or midline shift, cerebellar areas of edema, and apparent resolution of SAH * Repeat head CT 11/06 and 11/12 with stable edema, no new hemorrhage or infarct * MRI brain 11/13 showing evolving bilateral areas of infarction with mild mass effect on L lateral ventricle * EEG 11/04 w/ moderate diffuse encephalopathy but no seizure activity * Repeat EEG 11/12 abnormal but no apparent evidence of epileptiform features * CT head 11/17 after patient fell out of bed showing evolving left MCA territory and R parietal lobe infarcts with localized mass effect and probably petechial hemorrhage. No significant midline shift. Repeat CT Head 11/24 stable - Neurosurgery consulted, no surgical intervention at this time - Neurology following, ready for rehab neuro-mcdaniels. - Continue Keppra 1000mg BID. No seizure activity reported - Continue on Seroquel and Lexapro - Continue with PT/OT. Started on Gabapentin low dose for neuropathic pain RUE. Will plan to increase dose in the next several days. - ST recommending regular, thin liquids - Poor po intake. 11lb wt loss since admission. Aquatics Lifeguard consulted for calorie count 11/26 to 11/29. Per note, no meals recorded. Plan to repeat calorie count this week. Aquatics Lifeguard reconsulted. Heme Elevated INR at 9.8 - resolved Salicylate elevation Anemia - Elevated INR likely secondary to IV drug contamination - Corrected after 4 units FFP and FEIBA - Anemia likely secondary to acute illness - H&H stable - Hemodynamically stable - No signs of acute bleeding DVT prophylaxis: holding pharmacologic DVT prophylaxis due to risks of hemorrhagic conversion GI prophylaxis: PPI Code Status: FULL Discussed Condition With: patient, nursing staff, Dr. Elizabeth Discharge Planning: PT HAS NO INSURANCE FOR REHAB SERVICES. DISABILITY PAPERWORK WILL BE FILLED PER [facility]. (2) Sepsis Qualifiers: Sepsis type: sepsis due to unspecified organism Qualified Code(s): A41.9 - Sepsis, unspecified organism
[2017-12-03] MEDS: QUEtiapine 25 MG Tablet PO SCH (09:06)
[2017-12-03] MEDS: Escitalopram 10 MG Tablet PO SCH (09:06)
[2017-12-03] MEDS: levETIRAcetam 500 MG Tablet PO SCH ×2 (09:06→22:04)
[2017-12-03] MEDS: Gabapentin 100 MG Capsule PO SCH ×3 (09:06→17:25)
[2017-12-03] MEDS: Senna/Docusate Sodium 8.6/50 MG Tablet PO SCH ×2 (09:06→22:04)
[2017-12-03] MEDS: Famotidine 20 MG Tablet PO SCH ×2 (09:06→22:04)
[2017-12-03] MEDS: Heparin Central Flush 100 UNIT/ML 5 ML Vial IV.FLUSH SCH (09:07)
[2017-12-03] MEDS: amLODIPine 5 MG Tablet PO SCH (09:07)
[2017-12-03] MEDS: Chlorhexidine 0.12% Oral Kit 15 ML UDC OROPHARYNG SCH ×2 (09:07→22:07)
[2017-12-03] MEDS: Hypromellose 0.3% Opth Gel 10 GM Bottle EACH EYE SCH (22:09)
[2017-12-04] MEDS: Oral Hygiene Kit OROPHARYNG SCH ×4 (01:30→17:15)
--- NOTE | 2017-12-04 07:40 | P.PN ---
Subjective Interval history: Patient encountered in his room. RN is at the bedside. Patient denies any acute medical complaints. Does not appear to be having any pain complaints in the right upper extremity. Discussed with nursing staff, no acute events noted overnight. Physical Exam Vital signs: Vital Signs 12/03/17 08:00 12/03/17 12:00 12/03/17 16:00 Temperature 97.8 F 98.5 F 98.9 F Pulse Rate 101 H 104 H 102 H Respiratory Rate 24 23 24 Blood Pressure 103/51 L 119/56 L 117/58 L Pulse Oximetry 94 L 95 97 12/03/17 22:10 12/04/17 00:15 Temperature 97.7 F 98 F Pulse Rate 110 H 110 H Respiratory Rate 18 17 Blood Pressure 125/58 L 120/80 Pulse Oximetry 96 97 Intake & Output 12/03/17 12/04/17 12/04/17 18:59 06:59 18:59 Intake Total 0 / 0 890 / 890 Output Total 800 / 800 Balance -800 / -800 890 / 890 Weight 77.5 kg Intake: IV 0 / 0 240 / 240 Ancef Inj 2,000 MG In NS Inj 0 / 0 240 / 240 100 ML @ 240 mls/hr IV.SIG Q8H JONATHON Rx#:[id number] Oral 650 / 650 Output: Urine 800 / 800 Other: Date of Last Bowel Movement 12/01/17 12/03/17 # Bowel Movements 0 Narrative: GENERAL: WDWN male patient, INAD. Awake and alert. +Expressive aphasia. SKIN: Warm and dry. No generalized rash. HEENT: Atraumatic. Normocephalic. Pupils equal and round. No scleral icterus. No nasal bleeding or discharge. Mucous membranes pink and moist. NECK: Trachea midline. Airway patent. CARDIOVASCULAR: Regular rate and rhythm. +Systolic murmur. RESPIRATORY: No accessory muscle use. Clear to auscultation. Breath sounds equal bilaterally. GASTROINTESTINAL: Abdomen soft, non-tender, nondistended. +BS. MUSCULOSKELETAL: Extremities without clubbing, cyanosis, or edema. No obvious deformities. NEUROLOGICAL: Awake. Able to spontaneously move right upper and lower extremity. Good motor and sensory function in left upper and lower extremity. Follows commands. +Expressive aphasia. PSYCHIATRIC: Calm and cooperative with exam. - Urinary Catheter Management Indwelling Urethral Catheter Cath placed during this visit: no Reason for continuing: Not indwelling catheter Condom Cath placed during this visit: yes Reason for continuing: Not indwelling catheter Insertion date: 11/12/17 Straight Cath placed during this visit: no Reason for continuing: Not indwelling catheter Results - Labs CBC & Chem 7: 12/02/17 06:00 12/02/17 06:00 Assessment and Plan - Assessment (1) Endocarditis Code(s): I38 - Endocarditis, valve unspecified Status: Acute (2) Sepsis Code(s): A41.9 - Sepsis, unspecified organism Status: Acute (3) Stroke, embolic Code(s): I63.9 - Cerebral infarction, unspecified Status: Acute (4) IV drug abuse Code(s): F19.10 - Other psychoactive substance abuse, uncomplicated Status: Acute (5) MSSA bacteremia Code(s): R78.81 - Bacteremia Status: Acute - Plan 31 year old male with history of IVDU admitted 11/04 after he was found on the floor of his apartment altered with right-sided hemiparesis. The patient had originally presented to the ER on 10/30 with fevers and back pain. At that visit , MRI of the back was negative and he was discharged home. Blood cultures ended up returning positive for MSSA in 4 out of the 4 bottles. The patient was attempted to be contacted but unfortunately he could not be reached. Upon presentation back to the ED, CT brain demonstrated a small amount of subarachnoid blood and small areas of decreased density suggestive of acute infarcts, and MRI confirmed multiple small areas of infarct. He was admitted to the icing maker service where bedside echocardiogram revealed a large mobile mass ont he aortic valve with associated severe AV regurgitation. He was also found to have an INR of 9.8 with a concern that the IV drugs he was using were contaminated. He was transfused 4 units of FFP and FEIBA with normalization of his INR. He was intubated on 11/05 for acute respiratory failure, self-extubated 11/07 with subsequent reintubation later that day, and has since been extubated on 11/13. 12/04 no significant change. Patient is not in any distress. He appears to be doing well and has regaining function of his right side. Discussed with nursing staff, no acute issues noted. 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 s/p PICC line placement. Discharge planning still in progress. - On cefazolin and Rifampin until 12/18 - Weekly CBC, creatinine and LFTs - next lab draw 12/09/17 Respiratory Acute respiratory failure - resolved Aspiration PNA, completed course of Levaquin MSSA sputum - Extubated since 11/13 - CXR 11/16 w/ findings suggestive of pulmonary edema - Supplemental O2 to maintain sats >92%. Patient has been satting well on RA - Bronchodilators Cardiovascular Cardiogenic shock Severe AV regurgitation Hypertension - Amlodipine held secondary to low BP, will continue to monitor BP and if measurements remain low will discontinue. 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 Subarachnoid bleed - resolved Right sided hemiparesis, resolving IVDU Seizures Fall 11/17 - Imaging: * Head CT 11/04 with new infarct R parietal lobe, faint subarachnoid hemorrhage over high parietal convex bilaterally * Head and neck CTA negative * MRI 11/04 with multiple infarcts suggesting embolic occlusion * Repeat head CT 11/05 with new large area of edema in L MCA territory with no significant mass effect or midline shift, cerebellar areas of edema, and apparent resolution of SAH * Repeat head CT 11/06 and 11/12 with stable edema, no new hemorrhage or infarct * MRI brain 11/13 showing evolving bilateral areas of infarction with mild mass effect on L lateral ventricle * EEG 11/04 w/ moderate diffuse encephalopathy but no seizure activity * Repeat EEG 11/12 abnormal but no apparent evidence of epileptiform features * CT head 11/17 after patient fell out of bed showing evolving left MCA territory and R parietal lobe infarcts with localized mass effect and probably petechial hemorrhage. No significant midline shift. Repeat CT Head 11/24 stable - Neurosurgery consulted, no surgical intervention at this time - Neurology following, ready for rehab neuro-mcdaniels. - Continue Keppra 1000mg BID. No seizure activity reported - Continue on Seroquel and Lexapro - Continue with PT/OT. Started on Gabapentin low dose for neuropathic pain RUE. Will plan to increase dose in the next several days. - ST recommending regular, thin liquids - Poor po intake. 11lb wt loss since admission. Director Of Retail Marketing consulted for calorie count 11/26 to 11/29. Per note, no meals recorded. Plan to repeat calorie count this week. Director Of Retail Marketing reconsulted, appreciate assistance. Calorie count repeated 12/02 to 12/05 Heme Elevated INR at 9.8 - resolved Salicylate elevation Anemia - Elevated INR likely secondary to IV drug contamination - Corrected after 4 units FFP and FEIBA - Anemia likely secondary to acute illness - H&H stable - Hemodynamically stable - No signs of acute bleeding DVT prophylaxis: holding pharmacologic DVT prophylaxis due to risks of hemorrhagic conversion GI prophylaxis: PPI Code Status: FULL Discussed Condition With: patient, nursing staff, Dr. Elizabeth Discharge Planning: PT HAS NO INSURANCE FOR REHAB SERVICES. 12/02/17 HISTORY OF IVDA DISABILITY PAPERWORK FILED 11/25/17 . (2) Sepsis Qualifiers: Sepsis type: sepsis due to unspecified organism Qualified Code(s): A41.9 - Sepsis, unspecified organism
[2017-12-04] MEDS: Senna/Docusate Sodium 8.6/50 MG Tablet PO SCH ×2 (09:04→20:00)
[2017-12-04] MEDS: levETIRAcetam 500 MG Tablet PO SCH ×2 (09:04→20:00)
[2017-12-04] MEDS: Gabapentin 100 MG Capsule PO SCH ×3 (09:04→17:15)
[2017-12-04] MEDS: Escitalopram 10 MG Tablet PO SCH (09:04)
[2017-12-04] MEDS: Famotidine 20 MG Tablet PO SCH ×2 (09:04→20:00)
[2017-12-04] MEDS: QUEtiapine 25 MG Tablet PO SCH (09:04)
[2017-12-04] MEDS: Heparin Central Flush 100 UNIT/ML 5 ML Vial IV.FLUSH SCH (09:05)
[2017-12-04] MEDS: Chlorhexidine 0.12% Oral Kit 15 ML UDC OROPHARYNG SCH ×2 (09:05→19:27)
[2017-12-04] MEDS: Hypromellose 0.3% Opth Gel 10 GM Bottle EACH EYE SCH (20:01)
[2017-12-05] MEDS: Oral Hygiene Kit OROPHARYNG SCH ×4 (00:13→17:00)
--- NOTE | 2017-12-05 07:27 | P.PN ---
Subjective Interval history: No significant change. Patient is stable. Patient appears frustrated. Discussed with nursing staff, no acute issues. Physical Exam Vital signs: Vital Signs 12/04/17 08:00 12/04/17 12:00 12/04/17 16:00 Temperature 98 F 97.4 F L 98 F Pulse Rate 101 H 113 H 108 H Respiratory Rate 16 18 18 Blood Pressure 126/57 L 116/56 L 113/56 L Pulse Oximetry 95 97 12/04/17 18:58 12/04/17 23:24 12/05/17 04:00 Temperature 98.1 F 98.8 F 98.2 F Pulse Rate 107 H 101 H 100 H Respiratory Rate 20 20 20 Blood Pressure 126/60 112/53 L 106/52 L Pulse Oximetry 96 97 95 Intake & Output 12/04/17 12/05/17 12/05/17 18:59 06:59 18:59 Intake Total 120 / 120 240 / 240 Output Total 1800 / 1800 1000 / 1000 Balance -1680 / -1680 -760 / -760 Weight 79.1 kg Intake: IV 120 / 120 240 / 240 Ancef Inj 2,000 MG In NS Inj 120 / 120 240 / 240 100 ML @ 240 mls/hr IV.SIG Q8H JONATHON Rx#:[id number] Output: Urine 1800 / 1800 1000 / 1000 Other: Date of Last Bowel Movement 12/01/17 12/04/17 # Bowel Movements 1 Narrative: GENERAL: WDWN male patient, INAD. Awake and alert. Lying in bed. + Expressive aphasia. SKIN: Warm and dry. No generalized rash. HEENT: Atraumatic. Normocephalic. Pupils equal and round. No scleral icterus. No nasal bleeding or discharge. Mucous membranes pink and moist. NECK: Trachea midline. Airway patent. CARDIOVASCULAR: Regular rate and rhythm. +Systolic murmur. RESPIRATORY: No accessory muscle use. Clear to auscultation. Breath sounds equal bilaterally. GASTROINTESTINAL: Abdomen soft, non-tender, nondistended. +BS. MUSCULOSKELETAL: Extremities without clubbing, cyanosis, or edema. No obvious deformities. NEUROLOGICAL: Awake. Able to spontaneously move right upper and lower extremity. Good motor and sensory function in left upper and lower extremity. Follows commands. +Expressive aphasia. PSYCHIATRIC: Calm and cooperative with exam. - Urinary Catheter Management Indwelling Urethral Catheter Cath placed during this visit: no Reason for continuing: Not indwelling catheter Condom Cath placed during this visit: yes Reason for continuing: Not indwelling catheter Insertion date: 11/12/17 Straight Cath placed during this visit: no Reason for continuing: Not indwelling catheter Results - Labs CBC & Chem 7: 12/02/17 06:00 12/02/17 06:00 Assessment and Plan - Assessment (1) Endocarditis Code(s): I38 - Endocarditis, valve unspecified Status: Acute (2) Sepsis Code(s): A41.9 - Sepsis, unspecified organism Status: Acute (3) Stroke, embolic Code(s): I63.9 - Cerebral infarction, unspecified Status: Acute (4) IV drug abuse Code(s): F19.10 - Other psychoactive substance abuse, uncomplicated Status: Acute (5) MSSA bacteremia Code(s): R78.81 - Bacteremia Status: Acute - Plan 31 year old male with history of IVDU admitted 11/04 after he was found on the floor of his apartment altered with right-sided hemiparesis. The patient had originally presented to the ER on 10/30 with fevers and back pain. At that visit , MRI of the back was negative and he was discharged home. Blood cultures ended up returning positive for MSSA in 4 out of the 4 bottles. The patient was attempted to be contacted but unfortunately he could not be reached. Upon presentation back to the ED, CT brain demonstrated a small amount of subarachnoid blood and small areas of decreased density suggestive of acute infarcts, and MRI confirmed multiple small areas of infarct. He was admitted to the special effects specialist service where bedside echocardiogram revealed a large mobile mass ont he aortic valve with associated severe AV regurgitation. He was also found to have an INR of 9.8 with a concern that the IV drugs he was using were contaminated. He was transfused 4 units of FFP and FEIBA with normalization of his INR. He was intubated on 11/05 for acute respiratory failure, self-extubated 11/07 with subsequent reintubation later that day, and has since been extubated on 11/13. 12/05 Patient is stable. He is not in any distress. No significant change. Continue efforts with PT/OT/ST. He is afebrile. VSS. 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 s/p PICC line placement. Discharge planning still in progress. - On cefazolin and Rifampin until 12/18 - Weekly CBC, creatinine and LFTs - next lab draw 12/09/17 Respiratory Acute respiratory failure - resolved Aspiration PNA, completed course of Levaquin MSSA sputum - Extubated since 11/13 - CXR 11/16 w/ findings suggestive of pulmonary edema - Supplemental O2 to maintain sats >92%. Patient has been satting well on RA - Bronchodilators Cardiovascular Cardiogenic shock Severe AV regurgitation Hypertension - Amlodipine held secondary to low BP, will continue to monitor BP and if measurements remain low will discontinue. 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 Subarachnoid bleed - resolved Right sided hemiparesis, resolving IVDU Seizures Fall 11/17 - Imaging: * Head CT 11/04 with new infarct R parietal lobe, faint subarachnoid hemorrhage over high parietal convex bilaterally * Head and neck CTA negative * MRI 11/04 with multiple infarcts suggesting embolic occlusion * Repeat head CT 11/05 with new large area of edema in L MCA territory with no significant mass effect or midline shift, cerebellar areas of edema, and apparent resolution of SAH * Repeat head CT 11/06 and 11/12 with stable edema, no new hemorrhage or infarct * MRI brain 11/13 showing evolving bilateral areas of infarction with mild mass effect on L lateral ventricle * EEG 11/04 w/ moderate diffuse encephalopathy but no seizure activity * Repeat EEG 11/12 abnormal but no apparent evidence of epileptiform features * CT head 11/17 after patient fell out of bed showing evolving left MCA territory and R parietal lobe infarcts with localized mass effect and probably petechial hemorrhage. No significant midline shift. Repeat CT Head 11/24 stable - Neurosurgery consulted, no surgical intervention at this time - Neurology following, ready for rehab neuro-mcdaniels. - Continue Keppra 1000mg BID. No seizure activity reported - Continue on Seroquel and Lexapro - Continue with PT/OT. Started on Gabapentin low dose for neuropathic pain RUE. Will plan to increase dose in the next several days. - ST recommending regular, thin liquids - Poor po intake. 11lb wt loss since admission. Concrete Paver consulted for calorie count 11/26 to 11/29. Per note, no meals recorded. Plan to repeat calorie count this week. Concrete Paver reconsulted, appreciate assistance. Calorie count repeated 12/02 to 12/05. Patient meeting 87%of his caloric needs. Heme Elevated INR at 9.8 - resolved Salicylate elevation Anemia - Elevated INR likely secondary to IV drug contamination - Corrected after 4 units FFP and FEIBA - Anemia likely secondary to acute illness - H&H stable - Hemodynamically stable - No signs of acute bleeding DVT prophylaxis: holding pharmacologic DVT prophylaxis due to risks of hemorrhagic conversion GI prophylaxis: PPI Code Status: FULL Discussed Condition With: patient, nursing staff, Dr. Elizabeth Discharge Planning: PT HAS NO INSURANCE FOR REHAB SERVICES. 12/02/17 HISTORY OF IVDA DISABILITY PAPERWORK FILED 11/25/17 . (2) Sepsis Qualifiers: Sepsis type: sepsis due to unspecified organism Qualified Code(s): A41.9 - Sepsis, unspecified organism
[2017-12-05] MEDS: Chlorhexidine 0.12% Oral Kit 15 ML UDC OROPHARYNG SCH ×2 (08:08→20:18)
[2017-12-05] MEDS: Gabapentin 100 MG Capsule PO SCH ×3 (08:08→17:00)
[2017-12-05] MEDS: Heparin Central Flush 100 UNIT/ML 5 ML Vial IV.FLUSH SCH (08:08)
[2017-12-05] MEDS: levETIRAcetam 500 MG Tablet PO SCH ×2 (08:08→20:18)
[2017-12-05] MEDS: Escitalopram 10 MG Tablet PO SCH (08:08)
[2017-12-05] MEDS: QUEtiapine 25 MG Tablet PO SCH (08:09)
[2017-12-05] MEDS: Famotidine 20 MG Tablet PO SCH ×2 (08:09→20:18)
[2017-12-05] MEDS: Senna/Docusate Sodium 8.6/50 MG Tablet PO SCH ×2 (08:09→20:18)
--- NOTE | 2017-12-05 11:48 | P.DIET ---
Nutritional Evaluation Type of nutrition evaluation: follow-up (Previous TF) Nutrition consult regarding: Tube Feeding Nutrition screening: MDC (Calorie Counting) Screening comments: Calorie Counts ran from 12/02-12/05 Subjective Subjective Comments: Likes the chocolate flavor Ensure Enlive. Objective - Diagnosis Sepsis, Stroke Symptoms, r/o septic emboli of the brain - Objective % IBW: 116 (IBW = 142#) Body Weight Used for Calculations: Actual (81.6 kg) Energy Needs - Lower Range (kCal/kg): 25 Energy Needs - Upper Range (kCal/kg): 30 Lower Limit kCal/kg (kCals): 2,040 Upper Limit kCal/kg (kCals): 2,448 Lower Limit Protein Factor (Grams per Kg): 1.2 Upper Limit Protein Factor (Grams per Kg): 1.6 Lower Protein Needs (Protein): 98 Upper Protein Needs (Protein): 131 Dietitian Reviewed in Medical Record: Current diet, Curent medications, Intake & Output, Labs Diet Order: Heart Healthy Objective Comments: Med hx includes IVDU, DM, HTN Assessment Assessment: Pt was extubated on 11/13 and is on a Heart Healthy diet. He is receiving Ensure Enlive TID on his trays. Weights reviewed: CBW 79.1 kg which indicates ~10# wt loss since admission. Repeat Calorie count initiated per Dr's order and was completed today. Calorie counts indicate the pt's average po intake is ~1770 kcals and 104 gms protein per day. This meets ~ 87% of his kcaloric needs and 100% of his protein needs. He does well with the chocolate Ensure Enlive, will also add chocolate Ensure pudding to trays and monitor acceptance. Recommendations: 1. Continue Heart Healthy diet 2. Ensure Enlive TID. 3. Trial of Ensure pudding 4. RD will follow Dietitian to Monitor: Lab values, Supplement acceptance, Intake & Output, Diet tolerance, Weight change, PO Intake, Swallow recommendations, Medical course
[2017-12-05] MEDS: Hypromellose 0.3% Opth Gel 10 GM Bottle EACH EYE SCH (20:18)
[2017-12-06] MEDS: Oral Hygiene Kit OROPHARYNG SCH ×4 (00:05→14:59)
--- NOTE | 2017-12-06 07:30 | P.PN ---
Subjective Interval history: Patient is stable. No events overnight. Persistent expressive aphasia. Patient is frustrated with his progress. DW nursing staff, no acute events overnight. Physical Exam Vital signs: Vital Signs 12/05/17 08:00 12/05/17 12:00 12/05/17 16:00 Temperature 97.8 F 97.8 F 98.3 F Pulse Rate 95 H 97 H 106 H Respiratory Rate 14 16 16 Blood Pressure 117/45 L 114/53 L 125/57 L Pulse Oximetry 99 93 L 95 12/05/17 19:15 12/06/17 00:00 12/06/17 03:35 Temperature 97.5 F L 98.2 F 98.0 F Pulse Rate 104 H 107 H 102 H Respiratory Rate 18 20 20 Blood Pressure 111/56 L 107/52 L 106/53 L Pulse Oximetry 100 97 95 12/06/17 07:20 Temperature 97.8 F Pulse Rate 99 H Respiratory Rate 14 Blood Pressure 99/49 L Pulse Oximetry 96 Intake & Output 12/05/17 12/06/17 12/06/17 18:59 06:59 18:59 Intake Total 600 / 600 120 / 120 Output Total 1250 / 1250 Balance 600 / 600 -1130 / -1130 Weight 80 kg Intake: IV 120 / 120 120 / 120 Ancef Inj 2,000 MG In NS Inj 120 / 120 120 / 120 100 ML @ 240 mls/hr IV.SIG Q8H JONATHON Rx#:[id number] Oral 480 / 480 Output: Urine 1250 / 1250 Other: # Voids 3 Date of Last Bowel Movement 12/05/17 12/06/17 # Bowel Movements 2 1 Narrative: GENERAL: WDWN male patient, INAD. Awake and alert. Sitting on side of bed. +Expressive aphasia. SKIN: Warm and dry. No generalized rash. HEENT: Atraumatic. Normocephalic. Pupils equal and round. No scleral icterus. No nasal bleeding or discharge. Mucous membranes pink and moist. NECK: Trachea midline. Airway patent. CARDIOVASCULAR: Regular rate and rhythm. +Systolic murmur. RESPIRATORY: No accessory muscle use. Clear to auscultation. Breath sounds equal bilaterally. GASTROINTESTINAL: Abdomen soft, non-tender, nondistended. +BS. MUSCULOSKELETAL: Extremities without clubbing, cyanosis, or edema. No obvious deformities. NEUROLOGICAL: Awake. Able to spontaneously move right upper and lower extremity. Good motor and sensory function in left upper and lower extremity. Follows commands. +Expressive aphasia. PSYCHIATRIC: Calm and cooperative with exam. Appears depressed. - Urinary Catheter Management Indwelling Urethral Catheter Cath placed during this visit: no Reason for continuing: Not indwelling catheter Condom Cath placed during this visit: yes Reason for continuing: Not indwelling catheter Insertion date: 11/12/17 Straight Cath placed during this visit: no Reason for continuing: Not indwelling catheter Results - Labs CBC & Chem 7: 12/02/17 06:00 12/02/17 06:00 Assessment and Plan - Assessment (1) Endocarditis Code(s): I38 - Endocarditis, valve unspecified Status: Acute (2) Sepsis Code(s): A41.9 - Sepsis, unspecified organism Status: Acute (3) Stroke, embolic Code(s): I63.9 - Cerebral infarction, unspecified Status: Acute (4) IV drug abuse Code(s): F19.10 - Other psychoactive substance abuse, uncomplicated Status: Acute (5) MSSA bacteremia Code(s): R78.81 - Bacteremia Status: Acute - Plan 31 year old male with history of IVDU admitted 11/04 after he was found on the floor of his apartment altered with right-sided hemiparesis. The patient had originally presented to the ER on 10/30 with fevers and back pain. At that visit , MRI of the back was negative and he was discharged home. Blood cultures ended up returning positive for MSSA in 4 out of the 4 bottles. The patient was attempted to be contacted but unfortunately he could not be reached. Upon presentation back to the ED, CT brain demonstrated a small amount of subarachnoid blood and small areas of decreased density suggestive of acute infarcts, and MRI confirmed multiple small areas of infarct. He was admitted to the child nurse service where bedside echocardiogram revealed a large mobile mass ont he aortic valve with associated severe AV regurgitation. He was also found to have an INR of 9.8 with a concern that the IV drugs he was using were contaminated. He was transfused 4 units of FFP and FEIBA with normalization of his INR. He was intubated on 11/05 for acute respiratory failure, self-extubated 11/07 with subsequent reintubation later that day, and has since been extubated on 11/13. 12/06 No significant change. Patient is stable. He is not in any distress. He is afebrile. VSS. Appears depressed. Refused ST today. 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 s/p PICC line placement. Discharge planning still in progress. - On cefazolin and Rifampin until 12/18 - Weekly CBC, creatinine and LFTs - next lab draw 12/09/17 Respiratory Acute respiratory failure - resolved Aspiration PNA, completed course of Levaquin MSSA sputum - Extubated since 11/13 - CXR 11/16 w/ findings suggestive of pulmonary edema - Supplemental O2 to maintain sats >92%. Patient has been satting well on RA - Bronchodilators Cardiovascular Cardiogenic shock Severe AV regurgitation Hypertension - Amlodipine held secondary to low BP, will continue to monitor BP and if measurements remain low will discontinue. 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 Subarachnoid bleed - resolved Right sided hemiparesis, resolving IVDU Seizures Fall 11/17 - Imaging: * Head CT 11/04 with new infarct R parietal lobe, faint subarachnoid hemorrhage over high parietal convex bilaterally * Head and neck CTA negative * MRI 11/04 with multiple infarcts suggesting embolic occlusion * Repeat head CT 11/05 with new large area of edema in L MCA territory with no significant mass effect or midline shift, cerebellar areas of edema, and apparent resolution of SAH * Repeat head CT 11/06 and 11/12 with stable edema, no new hemorrhage or infarct * MRI brain 11/13 showing evolving bilateral areas of infarction with mild mass effect on L lateral ventricle * EEG 11/04 w/ moderate diffuse encephalopathy but no seizure activity * Repeat EEG 11/12 abnormal but no apparent evidence of epileptiform features * CT head 11/17 after patient fell out of bed showing evolving left MCA territory and R parietal lobe infarcts with localized mass effect and probably petechial hemorrhage. No significant midline shift. Repeat CT Head 11/24 stable - Neurosurgery consulted, no surgical intervention at this time - Neurology following, ready for rehab neuro-mcdaniels. - Continue Keppra 1000mg BID. No seizure activity reported - Continue on Seroquel and Lexapro - Continue with PT/OT. Started on Gabapentin low dose for neuropathic pain RUE. Will plan to increase dose in the next several days. - ST recommending regular, thin liquids - Poor po intake. 11lb wt loss since admission. Reiki Practitioner consulted for calorie count 11/26 to 11/29. Per note, no meals recorded. Plan to repeat calorie count this week. Reiki Practitioner reconsulted, appreciate assistance. Calorie count repeated 12/02 to 12/05. Patient meeting 87%of his caloric needs. Heme Elevated INR at 9.8 - resolved Salicylate elevation Anemia - Elevated INR likely secondary to IV drug contamination - Corrected after 4 units FFP and FEIBA - Anemia likely secondary to acute illness - H&H stable - Hemodynamically stable - No signs of acute bleeding DVT prophylaxis: holding pharmacologic DVT prophylaxis due to risks of hemorrhagic conversion GI prophylaxis: PPI Code Status: FULL Discussed Condition With: patient, nursing staff and Dr. Elizabeth Discharge Planning: PT HAS NO INSURANCE FOR REHAB SERVICES. 12/02/17 HISTORY OF IVDA DISABILITY PAPERWORK FILED 11/25/17 . (2) Sepsis Qualifiers: Sepsis type: sepsis due to unspecified organism Qualified Code(s): A41.9 - Sepsis, unspecified organism
[2017-12-06] MEDS: levETIRAcetam 500 MG Tablet PO SCH ×2 (08:16→20:45)
[2017-12-06] MEDS: Famotidine 20 MG Tablet PO SCH ×2 (08:16→20:45)
[2017-12-06] MEDS: Chlorhexidine 0.12% Oral Kit 15 ML UDC OROPHARYNG SCH ×2 (08:16→20:44)
[2017-12-06] MEDS: Heparin Central Flush 100 UNIT/ML 5 ML Vial IV.FLUSH SCH (08:16)
[2017-12-06] MEDS: Escitalopram 10 MG Tablet PO SCH (08:16)
[2017-12-06] MEDS: Gabapentin 100 MG Capsule PO SCH ×3 (08:17→17:50)
[2017-12-06] MEDS: Senna/Docusate Sodium 8.6/50 MG Tablet PO SCH ×2 (08:17→20:45)
[2017-12-06] MEDS: QUEtiapine 25 MG Tablet PO SCH (08:17)
--- NOTE | 2017-12-06 08:28 | P.PNID ---
Subjective Remarks: Patient is a 31-year-old male, who initially presented to [facility] emergency room October 30 complaining of 3 day history of headache. He gave a history of IV drug use. He was not febrile during that visit. WBC was normal. He underwent CT of the brain which was negative. Also underwent MRI of the thoracic and lumbar spine which were both negative for any infection. 2 blood cultures were done at that time and he was discharged. He came back to the hospital after his friends found him on the kitchen floor. He was reportedly unable to move his right side. And he was also noted to have some difficulty speaking. He remains afebrile. His white count is elevated. His CT of the head is now showing some findings in the right parietal area, as well as faint subarachnoid hemorrhage. CTA of the neck is negative. He has evidence of right-sided weakness, as well as expressive aphasia. The 2 blood cultures done on his ED visit is now reported as growing MSSA. Infectious disease consultation has been requested to evaluate the patient. Notes reviewed Doing well from ID standpoint Working with PT, OT amd speech therapy Gets frustrated due to his expressive aphasia Disposition problematic, CM working on it Temps ok BC (+) 11/04-11/07 Not a surgical candidate per CTS evaluation. Echocardiogram: The left ventricular systolic function is normal with an estimated ejection fraction in the range of 60-65%. Trace mitral valve regurgitation. Large vegetation noted on the aortic valve (1.7cm x 1.0cm) Mild obstruction of the aortic valve due to vegetation with a mean gradient of 11 mmHg Severe eccentric aortic regurgitation There is trace tricuspid valve regurgitation. Antibiotics: Cefazolin Rifampin Lines: PICC Past Medical History: Diabetes Hypertension IVDU Allergies/Adverse Reactions: Allergies No Known Allergies Allergy (Unverified 10/30/17 21:54) Objective Vital Signs 12/05/17 12:00 12/05/17 16:00 12/05/17 19:15 Temperature 97.8 F 98.3 F 97.5 F L Pulse Rate 97 H 106 H 104 H Respiratory Rate 16 16 18 Blood Pressure 114/53 L 125/57 L 111/56 L Pulse Oximetry 93 L 95 100 12/06/17 00:00 12/06/17 03:35 12/06/17 07:20 Temperature 98.2 F 98.0 F 97.8 F Pulse Rate 107 H 102 H 99 H Respiratory Rate 20 20 14 Blood Pressure 107/52 L 106/53 L 99/49 L Pulse Oximetry 97 95 96 Intake & Output 12/05/17 12/06/17 12/06/17 18:59 06:59 18:59 Intake Total 600 / 600 120 / 120 Output Total 1250 / 1250 Balance 600 / 600 -1130 / -1130 Weight 80 kg Intake: IV 120 / 120 120 / 120 Ancef Inj 2,000 MG In NS Inj 120 / 120 120 / 120 100 ML @ 240 mls/hr IV.SIG Q8H JONATHON Rx#:[id number] Oral 480 / 480 Output: Urine 1250 / 1250 Other: # Voids 3 Date of Last Bowel Movement 12/05/17 12/06/17 # Bowel Movements 2 1 Imaging: ITS Impressions Head CTA 11/04/17 05:39 CONCLUSION: 1. Patient is left vertebral dominant. 2. Otherwise, intracranial vessels are all patent without embolic or aneurysmal disease. Neck CTA 11/04/17 05:39 CONCLUSION: 1. Patient is left vertebral dominant. 2. Otherwise, arch and cervical vessels are patent throughout. Head MRI 11/13/17 00:00 CONCLUSION: 1. Evolving bilateral areas of infarction. There is mild mass effect on the left lateral ventricle particularly the posterior horn which is effaced. Knee X-Ray 11/17/17 00:00 CONCLUSION: No acute findings. Shoulder X-Ray 11/17/17 00:00 CONCLUSION: No acute bony abnormalities. Head CT 11/24/17 02:28 CONCLUSION: Stable head CT with bilateral parietal and left frontal lobe edema reportedly related to recent infarcts. There is no midline shift or herniation. . Chest X-Ray 12/01/17 02:57 CONCLUSION: PICC line in good position. Physical Exam: GENERAL: Awakens easily, and following, NAD. Has expressive aphasia SKIN: No generalized rash. EYES: Mulat conjunctiva. Has petechia on L conjunctiva. Pupils equal, round and reactive to light. No scleral icterus. OROPHARYNX: Moist mucosa. NECK: Trachea midline. Supple and not tender, no meningeal signs CARDIOVASCULAR: Regular rate and rhythm. Systolic murmur at the left sternal border. RESPIRATORY: Clear breath sounds ABDOMEN: Soft, nondistended. Bowel sounds present and normoactive.Not tender EXTREMITIES: No clubbing, cyanosis. No joint effusion. NEUROLOGICAL: Not moving the right upper and lower extremity. PSYCHIATRIC: Cooperative LINE: PICC no evidence of infection Assessment and Plan - Plan Impression MSSA sepsis L sided endocarditis AV, due to IVDU - has large vegetation AV, causing mild obstruction CVA with R sided weakness, aphasia, due to embolic event from his IE Persistent fevers. Resolved Respiratory failure, has bilateral infiltrates - doing well post extubation MSSA PNA, S/P Rx Recommendation Continue Ancef Continue Rifampin for synergy Labs weekly while on Abx: CBC, creatinine and LFT - will order for Saturday Will need long course of IV Abx - anticipate Abx until Dec 18 Monitor progress Per CTS not surgical candidate Clinically doing well from ID standpoint Discharge planning - still being determined
[2017-12-06] MEDS: Hypromellose 0.3% Opth Gel 10 GM Bottle EACH EYE SCH (20:45)
[2017-12-07] MEDS: Oral Hygiene Kit OROPHARYNG SCH ×4 (00:55→18:49)
[2017-12-07] MEDS: Escitalopram 10 MG Tablet PO SCH (09:15)
[2017-12-07] MEDS: Gabapentin 100 MG Capsule PO SCH ×3 (09:15→18:24)
[2017-12-07] MEDS: Senna/Docusate Sodium 8.6/50 MG Tablet PO SCH ×2 (09:15→22:42)
[2017-12-07] MEDS: QUEtiapine 25 MG Tablet PO SCH (09:15)
[2017-12-07] MEDS: levETIRAcetam 500 MG Tablet PO SCH ×2 (09:15→22:42)
[2017-12-07] MEDS: Famotidine 20 MG Tablet PO SCH ×2 (09:15→22:41)
--- NOTE | 2017-12-07 11:27 | P.PNIM ---
Subjective Interval history: Patient seen and examined this morning. Temperature 99.4, pulse 106, respiratory rate 16, pressure 108/51, pulse ox 90 L on room air. Patient is lying in bed arousable but not communicating at this time. Does not follow commands. Physical Exam Vital signs: Vital Signs 12/06/17 12:00 12/06/17 16:00 12/06/17 20:00 Temperature 97.9 F 97.6 F 97.8 F Pulse Rate 101 H 111 H 109 H Respiratory Rate 16 14 16 Blood Pressure 102/50 L 118/55 L 111/53 L Pulse Oximetry 93 L 99 96 12/07/17 00:00 12/07/17 04:00 12/07/17 08:00 Temperature 97.7 F 98.1 F 99.4 F Pulse Rate 109 H 100 H 106 H Respiratory Rate 16 16 16 Blood Pressure 98/52 L 99/49 L 108/51 L Pulse Oximetry 97 98 90 L Intake & Output 12/06/17 12/07/17 12/07/17 18:59 06:59 18:59 Intake Total 3440 / 3440 120 / 120 Output Total 1251 / 1251 Balance 2189 / 2189 120 / 120 Weight 77.8 kg Intake: IV 240 / 240 120 / 120 Ancef Inj 2,000 MG In NS Inj 240 / 240 120 / 120 100 ML @ 240 mls/hr IV.SIG Q8H [facility] Rx#:[id number] Oral 480 / 480 Tube Feeding 2250 / 2250 Tube Irrigant 200 / 200 Water Bolus Amount 30 / 30 Other 240 / 240 Output: Urine 1250 / 1250 Stool 1 / 1 Urine/Stool Mix 0 / 0 Other: Post Void Residual 1 Other Intake Source Saline Solution # Voids 3 # Incontinent Voids 1 Date of Last Bowel Movement 12/05/17 12/06/17 # Bowel Movements 1 # Incontinent Bowel Movements 1 Narrative: GENERAL: WDWN male patient, INAD. Awake and alert. Lying in bed. + Expressive aphasia. SKIN: Warm and dry. No generalized rash. HEENT: Atraumatic. Normocephalic. Pupils equal and round. No scleral icterus. No nasal bleeding or discharge. Mucous membranes pink and moist. NECK: Trachea midline. Airway patent. CARDIOVASCULAR: Regular rate and rhythm. +Systolic murmur. RESPIRATORY: No accessory muscle use. Clear to auscultation. Breath sounds equal bilaterally. GASTROINTESTINAL: Abdomen soft, non-tender, nondistended. +BS. MUSCULOSKELETAL: Extremities without clubbing, cyanosis, or edema. No obvious deformities. NEUROLOGICAL: Awake. Able to spontaneously move right upper and lower extremity. Good motor and sensory function in left upper and lower extremity. +Expressive aphasia. PSYCHIATRIC: Drowsy not following commands at this time - Urinary Catheter Management Indwelling Urethral Catheter Cath placed during this visit: no Reason for continuing: Not indwelling catheter Condom Cath placed during this visit: yes Reason for continuing: Not indwelling catheter Insertion date: 11/12/17 Straight Cath placed during this visit: no Reason for continuing: Not indwelling catheter Results - Labs CBC & Chem 7: 12/02/17 06:00 12/02/17 06:00 - Imaging Chest X-Ray 11/04/17 05:39 CONCLUSION: 1. Patchy left perihilar and right basilar airspace disease with possible developing right-sided effusion. 2. Lungs are hypoinflated. Head CT 11/04/17 05:39 CONCLUSION: 1. There appear to be new, subcortical white matter infarct posteriorly in the right parietal lobe. 2. There also appears to be some faint subarachnoid hemorrhage over the high parietal convex [place] bilaterally 3. No fractures, Report was called by [ Dr. Ellis to Dr. Sloan in the ED at 0614 hours] Head CTA 11/04/17 05:39 CONCLUSION: 1. Patient is left vertebral dominant. 2. Otherwise, intracranial vessels are all patent without embolic or aneurysmal disease. Neck CTA 11/04/17 05:39 CONCLUSION: 1. Patient is left vertebral dominant. 2. Otherwise, arch and cervical vessels are patent throughout. Head MRI 11/04/17 06:36 CONCLUSION: 1. Acute infarcts as described above suggesting embolic occlusion as described above. Largest areas in the left posterior sylvian region. Chest X-Ray 11/05/17 00:32 CONCLUSION: 1. . Worsening bilateral patchy airspace disease. Probable associated right- sided effusion. 2. Interval placement of a right subclavian central venous catheter, endotracheal and nasogastric tubes as detailed above. All appear to be appropriately positioned. No pneumothorax. Head CT 11/05/17 08:43 CONCLUSION: 1. New large area of edema in the left middle cerebral artery territory at site of infarction. There is no significant mass effect or midline shift. 2. Cerebellar areas of edema involving the right temporal parietal watershed region as well as the left caudate nucleus at site of restricted diffusion seen on MRI. 3. The previously noted apparent subtle subarachnoid hemorrhage over the high parietal convexities is no longer distinctly visualized. 4. No new hemorrhage. Head CT 11/06/17 07:54 CONCLUSION: 1. Persistent large area of cytotoxic edema involving the left temporoparietal lobe as well as focal edema involving the head of the left caudate nucleus consistent with known acute infarction involving the left middle cerebral artery. There is a small area of edema involving the right posterior parietal occipital lobe which is stable. 2. No acute hemorrhage, midline shift, extra-axial bleed or ventriculomegaly. Chest X-Ray 11/07/17 21:17 CONCLUSION: Diffuse pulmonary consolidation likely representing diffuse processes such as edema. This is clearly worsened since the prior exam. Chest X-Ray 11/12/17 06:00 CONCLUSION: 1. Interval improvement in pulmonary edema. 2. Moderate residual airspace disease remains as well as an apparent small left effusion. Head CT 11/12/17 09:37 CONCLUSION: 1. Moderate-sized area of edema involving the left posterior parietal cortex unchanged from previous of 11/06/2017. Findings are most consistent with cortical infarct. There is no evidence of hemorrhage within this. . Head MRI 11/13/17 00:00 CONCLUSION: 1. Evolving bilateral areas of infarction. There is mild mass effect on the left lateral ventricle particularly the posterior horn which is effaced. Chest X-Ray 11/14/17 06:00 CONCLUSION: 1. Interval extubation and removal of the nasogastric tube. 2. Mild interval increase in hazy opacity in both lungs most characteristic of pulmonary edema. Chest X-Ray 11/16/17 06:00 CONCLUSION: Increasing indistinctness and engorgement of the central bronchopulmonary markings suggestive of pulmonary edema. Knee X-Ray 11/17/17 00:00 CONCLUSION: No acute findings. Shoulder X-Ray 11/17/17 00:00 CONCLUSION: No acute bony abnormalities. Head CT 11/17/17 15:46 CONCLUSION: 1. Evolving left MCA territory and right parietal lobe infarcts as above with localized mass effect and probable petechial hemorrhage. No significant midline shift. . Head CT 11/24/17 02:28 CONCLUSION: Stable head CT with bilateral parietal and left frontal lobe edema reportedly related to recent infarcts. There is no midline shift or herniation. . Chest X-Ray 12/01/17 02:57 CONCLUSION: PICC line in good position. Assessment and Plan - Assessment (1) Endocarditis Code(s): I38 - Endocarditis, valve unspecified Status: Acute (2) Sepsis Code(s): A41.9 - Sepsis, unspecified organism Status: Acute (3) Stroke, embolic Code(s): I63.9 - Cerebral infarction, unspecified Status: Acute (4) IV drug abuse Code(s): F19.10 - Other psychoactive substance abuse, uncomplicated Status: Acute (5) MSSA bacteremia Code(s): R78.81 - Bacteremia Status: Acute - Plan 31 year old male with history of IVDU admitted 11/04 after he was found on the floor of his apartment altered with right-sided hemiparesis. The patient had originally presented to the ER on 10/30 with fevers and back pain. At that visit , MRI of the back was negative and he was discharged home. Blood cultures ended up returning positive for MSSA in 4 out of the 4 bottles. The patient was attempted to be contacted but unfortunately he could not be reached. Upon presentation back to the ED, CT brain demonstrated a small amount of subarachnoid blood and small areas of decreased density suggestive of acute infarcts, and MRI confirmed multiple small areas of infarct. [facility] where bedside echocardiogram revealed a large mobile mass ont he aortic valve with associated severe AV regurgitation. He was also found to have an INR of 9.8 with a concern that the IV drugs he was using were contaminated. He was transfused 4 units of FFP and FEIBA with normalization of his INR. He was intubated on 11/05 for acute respiratory failure, self-extubated 11/07 with subsequent reintubation later that day, and has since been extubated on 11/13. 12/07 Patient is stable. He is not in any distress. He is afebrile. VSS. 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 s/p PICC line placement. Discharge planning still in progress. - On cefazolin and Rifampin until 12/18 - Weekly CBC, creatinine and LFTs - next lab draw 12/09/17 Respiratory Acute respiratory failure - resolved Aspiration PNA, completed course of Levaquin MSSA sputum - Extubated since 11/13 - CXR 11/16 w/ findings suggestive of pulmonary edema - Supplemental O2 to maintain sats >92%. Patient has been satting well on RA - Bronchodilators Cardiovascular Cardiogenic shock Severe AV regurgitation Hypertension - Amlodipine held secondary to low BP, will continue to monitor BP and if measurements remain low will discontinue. 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 Subarachnoid bleed - resolved Right sided hemiparesis, resolving IVDU Seizures Fall 11/17 - Imaging: * Head CT 11/04 with new infarct R parietal lobe, faint subarachnoid hemorrhage over high parietal convex bilaterally * Head and neck CTA negative * MRI 11/04 with multiple infarcts suggesting embolic occlusion * Repeat head CT 11/05 with new large area of edema in L MCA territory with no significant mass effect or midline shift, cerebellar areas of edema, and apparent resolution of SAH * Repeat head CT 11/06 and 11/12 with stable edema, no new hemorrhage or infarct * MRI brain 11/13 showing evolving bilateral areas of infarction with mild mass effect on L lateral ventricle * EEG 11/04 w/ moderate diffuse encephalopathy but no seizure activity * Repeat EEG 11/12 abnormal but no apparent evidence of epileptiform features * CT head 11/17 after patient fell out of bed showing evolving left MCA territory and R parietal lobe infarcts with localized mass effect and probably petechial hemorrhage. No significant midline shift. Repeat CT Head 11/24 stable - Neurosurgery consulted, no surgical intervention at this time - Neurology following, ready for rehab neuro-mcdaniels. - Continue Keppra 1000mg BID. No seizure activity reported - Continue on Seroquel and Lexapro - Continue with PT/OT. Started on Gabapentin low dose for neuropathic pain RUE. Will plan to increase dose in the next several days. - ST recommending regular, thin liquids - Poor po intake. [employer] consulted for calorie count 11/26 to 11/29. Per note, no meals recorded. Plan to repeat calorie count this week. [employer] reconsulted, appreciate assistance. Calorie count repeated 12/02 to 12/05. Patient meeting 87%of his caloric needs. Heme Elevated INR at 9.8 - resolved Salicylate elevation Anemia - Elevated INR likely secondary to IV drug contamination - Corrected after 4 units FFP and FEIBA - Anemia likely secondary to acute illness - H&H stable - Hemodynamically stable - No signs of acute bleeding DVT prophylaxis: holding pharmacologic DVT prophylaxis due to risks of hemorrhagic conversion GI prophylaxis: PPI Code Status: Full code Discharge Planning: Difficult placement, will require clearance by infectious disease. PT HAS NO INSURANCE FOR REHAB SERVICES. 12/02/17 HISTORY OF [facility] DISABILITY PAPERWORK FILED 11/25/17 . (2) Sepsis Qualifiers: Sepsis type: sepsis due to unspecified organism Qualified Code(s): A41.9 - Sepsis, unspecified organism
[2017-12-07] MEDS: Heparin Central Flush 100 UNIT/ML 5 ML Vial IV.FLUSH SCH (13:01)
[2017-12-07] MEDS: Chlorhexidine 0.12% Oral Kit 15 ML UDC OROPHARYNG SCH ×2 (13:01→21:03)
[2017-12-07] MEDS: Hypromellose 0.3% Opth Gel 10 GM Bottle EACH EYE SCH (22:42)
[2017-12-08] MEDS: Oral Hygiene Kit OROPHARYNG SCH ×3 (00:55→18:10)
[2017-12-08] MEDS: Escitalopram 10 MG Tablet PO SCH (09:41)
[2017-12-08] MEDS: levETIRAcetam 500 MG Tablet PO SCH ×2 (09:41→21:52)
[2017-12-08] MEDS: Gabapentin 100 MG Capsule PO SCH ×3 (09:42→18:05)
[2017-12-08] MEDS: Senna/Docusate Sodium 8.6/50 MG Tablet PO SCH ×2 (09:42→21:53)
[2017-12-08] MEDS: Famotidine 20 MG Tablet PO SCH ×2 (09:42→21:52)
[2017-12-08] MEDS: QUEtiapine 25 MG Tablet PO SCH (09:42)
[2017-12-08] MEDS: Heparin Central Flush 100 UNIT/ML 5 ML Vial IV.FLUSH SCH (09:51)
[2017-12-08] MEDS: Chlorhexidine 0.12% Oral Kit 15 ML UDC OROPHARYNG SCH ×2 (09:53→21:52)
--- NOTE | 2017-12-08 09:56 | P.PNIM ---
Subjective Interval history: Patient seen and examined this morning. Afebrile vital signs stable. He was far more communicative and following commands today than yesterday. Difficulty with answering questions as he cannot get out the words he is wanted to say. Gets very frustrated quickly. He is hopeful to get out of the hospital to go to rehab. Physical Exam Vital signs: Vital Signs 12/07/17 12:00 12/07/17 16:00 12/07/17 20:00 Temperature 97.8 F 98.0 F 97.7 F Pulse Rate 108 H 111 H 104 H Respiratory Rate 14 16 18 Blood Pressure 102/51 L 117/56 L 103/50 L Pulse Oximetry 90 L 95 99 12/08/17 00:00 12/08/17 04:00 12/08/17 08:00 Temperature 97.3 F L 98.1 F 98.0 F Pulse Rate 92 H 104 H 105 H Respiratory Rate 18 18 16 Blood Pressure 106/54 L 106/55 L 102/49 L Pulse Oximetry 98 95 Intake & Output 12/07/17 12/08/17 12/08/17 18:59 06:59 18:59 Intake Total 120 / 120 240 / 240 Balance 120 / 120 240 / 240 Weight 77.8 kg Intake: IV 120 / 120 240 / 240 Ancef Inj 2,000 MG In NS Inj 120 / 120 240 / 240 100 ML @ 240 mls/hr IV.SIG Q8H [facility] Rx#:[id number] Other: Date of Last Bowel Movement 12/06/17 12/06/17 Narrative: GENERAL: WDWN male patient, INAD. Awake and alert. Lying in bed. + Expressive aphasia. SKIN: Warm and dry. No generalized rash. HEENT: Atraumatic. Normocephalic. Pupils equal and round. No scleral icterus. No nasal bleeding or discharge. Mucous membranes pink and moist. NECK: Trachea midline. Airway patent. CARDIOVASCULAR: Regular rate and rhythm. +Systolic murmur. RESPIRATORY: No accessory muscle use. Clear to auscultation. Breath sounds equal bilaterally. GASTROINTESTINAL: Abdomen soft, non-tender, nondistended. +BS. MUSCULOSKELETAL: Extremities without clubbing, cyanosis, or edema. No obvious deformities. NEUROLOGICAL: Awake. Able to spontaneously move right upper and lower extremity. Good motor and sensory function in left upper and lower extremity. +Expressive aphasia. PSYCHIATRIC: Awake and alert and following commands at this time - Urinary Catheter Management Indwelling Urethral Catheter Cath placed during this visit: no Reason for continuing: Not indwelling catheter Condom Cath placed during this visit: yes Reason for continuing: Not indwelling catheter Insertion date: 11/12/17 Straight Cath placed during this visit: no Reason for continuing: Not indwelling catheter Results - Labs CBC & Chem 7: 12/02/17 06:00 12/02/17 06:00 - Imaging Chest X-Ray 11/04/17 05:39 CONCLUSION: 1. Patchy left perihilar and right basilar airspace disease with possible developing right-sided effusion. 2. Lungs are hypoinflated. Head CT 11/04/17 05:39 CONCLUSION: 1. There appear to be new, subcortical white matter infarct posteriorly in the right parietal lobe. 2. There also appears to be some faint subarachnoid hemorrhage over the high parietal convex [place] bilaterally 3. No fractures, Report was called by [ Dr. Ellis to Dr. Sloan in the ED at 0614 hours] Head CTA 11/04/17 05:39 CONCLUSION: 1. Patient is left vertebral dominant. 2. Otherwise, intracranial vessels are all patent without embolic or aneurysmal disease. Neck CTA 11/04/17 05:39 CONCLUSION: 1. Patient is left vertebral dominant. 2. Otherwise, arch and cervical vessels are patent throughout. Head MRI 11/04/17 06:36 CONCLUSION: 1. Acute infarcts as described above suggesting embolic occlusion as described above. Largest areas in the left posterior sylvian region. Chest X-Ray 11/05/17 00:32 CONCLUSION: 1. . Worsening bilateral patchy airspace disease. Probable associated right- sided effusion. 2. Interval placement of a right subclavian central venous catheter, endotracheal and nasogastric tubes as detailed above. All appear to be appropriately positioned. No pneumothorax. Head CT 11/05/17 08:43 CONCLUSION: 1. New large area of edema in the left middle cerebral artery territory at site of infarction. There is no significant mass effect or midline shift. 2. Cerebellar areas of edema involving the right temporal parietal watershed region as well as the left caudate nucleus at site of restricted diffusion seen on MRI. 3. The previously noted apparent subtle subarachnoid hemorrhage over the high parietal convexities is no longer distinctly visualized. 4. No new hemorrhage. Head CT 11/06/17 07:54 CONCLUSION: 1. Persistent large area of cytotoxic edema involving the left temporoparietal lobe as well as focal edema involving the head of the left caudate nucleus consistent with known acute infarction involving the left middle cerebral artery. There is a small area of edema involving the right posterior parietal occipital lobe which is stable. 2. No acute hemorrhage, midline shift, extra-axial bleed or ventriculomegaly. Chest X-Ray 11/07/17 21:17 CONCLUSION: Diffuse pulmonary consolidation likely representing diffuse processes such as edema. This is clearly worsened since the prior exam. Chest X-Ray 11/12/17 06:00 CONCLUSION: 1. Interval improvement in pulmonary edema. 2. Moderate residual airspace disease remains as well as an apparent small left effusion. Head CT 11/12/17 09:37 CONCLUSION: 1. Moderate-sized area of edema involving the left posterior parietal cortex unchanged from previous of 11/06/2017. Findings are most consistent with cortical infarct. There is no evidence of hemorrhage within this. . Head MRI 11/13/17 00:00 CONCLUSION: 1. Evolving bilateral areas of infarction. There is mild mass effect on the left lateral ventricle particularly the posterior horn which is effaced. Chest X-Ray 11/14/17 06:00 CONCLUSION: 1. Interval extubation and removal of the nasogastric tube. 2. Mild interval increase in hazy opacity in both lungs most characteristic of pulmonary edema. Chest X-Ray 11/16/17 06:00 CONCLUSION: Increasing indistinctness and engorgement of the central bronchopulmonary markings suggestive of pulmonary edema. Knee X-Ray 11/17/17 00:00 CONCLUSION: No acute findings. Shoulder X-Ray 11/17/17 00:00 CONCLUSION: No acute bony abnormalities. Head CT 11/17/17 15:46 CONCLUSION: 1. Evolving left MCA territory and right parietal lobe infarcts as above with localized mass effect and probable petechial hemorrhage. No significant midline shift. . Head CT 11/24/17 02:28 CONCLUSION: Stable head CT with bilateral parietal and left frontal lobe edema reportedly related to recent infarcts. There is no midline shift or herniation. . Chest X-Ray 12/01/17 02:57 CONCLUSION: PICC line in good position. Assessment and Plan - Assessment (1) Endocarditis Code(s): I38 - Endocarditis, valve unspecified Status: Acute (2) Sepsis Code(s): A41.9 - Sepsis, unspecified organism Status: Acute (3) Stroke, embolic Code(s): I63.9 - Cerebral infarction, unspecified Status: Acute (4) IV drug abuse Code(s): F19.10 - Other psychoactive substance abuse, uncomplicated Status: Acute (5) MSSA bacteremia Code(s): R78.81 - Bacteremia Status: Acute - Plan 31 year old male with history of IVDU admitted 11/04 after he was found on the floor of his apartment altered with right-sided hemiparesis. The patient had originally presented to the ER on 10/30 with fevers and back pain. At that visit , MRI of the back was negative and he was discharged home. Blood cultures ended up returning positive for MSSA in 4 out of the 4 bottles. The patient was attempted to be contacted but unfortunately he could not be reached. Upon presentation back to the ED, CT brain demonstrated a small amount of subarachnoid blood and small areas of decreased density suggestive of acute infarcts, and MRI confirmed multiple small areas of infarct. 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 He was also found to have an INR of 9.8 with a concern that the IV drugs he was using were contaminated. He was transfused 4 units of FFP and FEIBA with normalization of his INR. He was intubated on 11/05 for acute respiratory failure, self-extubated 11/07 with subsequent reintubation later that day, and has since been extubated on 11/13. 12/08 Patient is stable. He is not in any distress. He is afebrile. VSS. Awake alert and following commands. 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 s/p PICC line placement. Discharge planning still in progress. - On cefazolin and Rifampin until 12/18 - Weekly CBC, creatinine and LFTs - next lab draw 12/09/17 Respiratory Acute respiratory failure - resolved Aspiration PNA, completed course of Levaquin MSSA sputum - Extubated since 11/13 - CXR 11/16 w/ findings suggestive of pulmonary edema - Supplemental O2 to maintain sats >92%. Patient has been satting well on RA - Bronchodilators Cardiovascular Cardiogenic shock Severe AV regurgitation Hypertension - Amlodipine held secondary to low BP, will continue to monitor BP and if measurements remain low will discontinue. 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 Subarachnoid bleed - resolved Right sided hemiparesis, resolving IVDU Seizures Fall 11/17 - Imaging: * Head CT 11/04 with new infarct R parietal lobe, faint subarachnoid hemorrhage over high parietal convex bilaterally * Head and neck CTA negative * MRI 11/04 with multiple infarcts suggesting embolic occlusion * Repeat head CT 11/05 with new large area of edema in L MCA territory with no significant mass effect or midline shift, cerebellar areas of edema, and apparent resolution of SAH * Repeat head CT 11/06 and 11/12 with stable edema, no new hemorrhage or infarct * MRI brain 11/13 showing evolving bilateral areas of infarction with mild mass effect on L lateral ventricle * EEG 11/04 w/ moderate diffuse encephalopathy but no seizure activity * Repeat EEG 11/12 abnormal but no apparent evidence of epileptiform features * CT head 11/17 after patient fell out of bed showing evolving left MCA territory and R parietal lobe infarcts with localized mass effect and probably petechial hemorrhage. No significant midline shift. Repeat CT Head 11/24 stable - Neurosurgery consulted, no surgical intervention at this time - Neurology following, ready for rehab neuro-mcdaniels. - Continue Keppra 1000mg BID. No seizure activity reported - Continue on Seroquel and Lexapro - Continue with PT/OT. Started on Gabapentin low dose for neuropathic pain RUE. Will plan to increase dose in the next several days. - ST recommending regular, thin liquids - Poor po intake. [employer] consulted for calorie count 11/26 to 11/29. Per note, no meals recorded. Plan to repeat calorie count this week. [employer] reconsulted, appreciate assistance. Calorie count repeated 12/02 to 12/05. Patient meeting 87%of his caloric needs. Heme Elevated INR at 9.8 - resolved Salicylate elevation Anemia - Elevated INR likely secondary to IV drug contamination - Corrected after 4 units FFP and FEIBA - Anemia likely secondary to acute illness - H&H stable - Hemodynamically stable - No signs of acute bleeding DVT prophylaxis: holding pharmacologic DVT prophylaxis due to risks of hemorrhagic conversion GI prophylaxis: PPI Code Status: Full code Discharge Planning: Difficult placement, will require clearance by infectious disease. PT HAS NO INSURANCE FOR REHAB SERVICES. 12/02/17 HISTORY OF IVDA DISABILITY PAPERWORK FILED 11/25/17 . (2) Sepsis Qualifiers: Sepsis type: sepsis due to unspecified organism Qualified Code(s): A41.9 - Sepsis, unspecified organism
[2017-12-08] MEDS: Hypromellose 0.3% Opth Gel 10 GM Bottle EACH EYE SCH (21:53)
[2017-12-09] MEDS: Oral Hygiene Kit OROPHARYNG SCH ×4 (00:35→18:09)
[2017-12-09] MEDS: Escitalopram 10 MG Tablet PO SCH (09:30)
[2017-12-09] MEDS: QUEtiapine 25 MG Tablet PO SCH (09:30)
[2017-12-09] MEDS: Gabapentin 100 MG Capsule PO SCH ×3 (09:30→18:15)
[2017-12-09] MEDS: Senna/Docusate Sodium 8.6/50 MG Tablet PO SCH ×2 (09:30→23:10)
[2017-12-09] MEDS: Heparin Central Flush 100 UNIT/ML 5 ML Vial IV.FLUSH SCH (09:30)
[2017-12-09] MEDS: levETIRAcetam 500 MG Tablet PO SCH ×2 (09:30→23:09)
[2017-12-09] MEDS: Famotidine 20 MG Tablet PO SCH ×2 (09:30→23:09)
[2017-12-09] MEDS: Chlorhexidine 0.12% Oral Kit 15 ML UDC OROPHARYNG SCH ×2 (09:31→23:10)
--- NOTE | 2017-12-09 10:56 | P.PNIM ---
Subjective Interval history: Patient seen and examined this morning. Afebrile vital signs stable. Still having difficulty with placement for long-term care. Patient is still seeming quite depressed and wants to get out of the hospital. Still awaiting placement for the patient. Physical Exam Vital signs: Vital Signs 12/08/17 12:00 12/08/17 16:00 12/08/17 20:00 Temperature 98.5 F 97.8 F 98.6 F Pulse Rate 108 H 114 H 110 H Respiratory Rate 18 16 18 Blood Pressure 96/50 L 124/51 L 103/51 L Pulse Oximetry 93 L 94 L 94 L 12/09/17 00:00 12/09/17 08:00 Temperature 98.3 F 98.5 F Pulse Rate 97 H 109 H Respiratory Rate 18 20 Blood Pressure 110/57 L 119/57 L Pulse Oximetry 94 L 95 Intake & Output 12/08/17 12/09/17 12/09/17 18:59 06:59 18:59 Intake Total 120 / 120 240 / 240 120 / 120 Output Total 300 / 300 Balance -180 / -180 240 / 240 120 / 120 Intake: IV 120 / 120 240 / 240 120 / 120 Ancef Inj 2,000 MG In NS Inj 120 / 120 240 / 240 120 / 120 100 ML @ 240 mls/hr IV.SIG Q8H [facility] Rx#:[id number] Output: Urine 300 / 300 Other: # Voids 3 Date of Last Bowel Movement 12/06/17 12/09/17 # Bowel Movements 1 Narrative: GENERAL: WDWN male patient, INAD. Awake and alert. Lying in bed. + Expressive aphasia. SKIN: Warm and dry. No generalized rash. HEENT: Atraumatic. Normocephalic. Pupils equal and round. No scleral icterus. No nasal bleeding or discharge. Mucous membranes pink and moist. NECK: Trachea midline. Airway patent. CARDIOVASCULAR: Regular rate and rhythm. +Systolic murmur. RESPIRATORY: No accessory muscle use. Clear to auscultation. Breath sounds equal bilaterally. GASTROINTESTINAL: Abdomen soft, non-tender, nondistended. +BS. MUSCULOSKELETAL: Extremities without clubbing, cyanosis, or edema. No obvious deformities. NEUROLOGICAL: Awake. Able to spontaneously move right upper and lower extremity. Good motor and sensory function in left upper and lower extremity. +Expressive aphasia. PSYCHIATRIC: Awake and alert and following commands at this time - Urinary Catheter Management Indwelling Urethral Catheter Cath placed during this visit: no Reason for continuing: Not indwelling catheter Condom Cath placed during this visit: yes Reason for continuing: Not indwelling catheter Insertion date: 11/12/17 Straight Cath placed during this visit: no Reason for continuing: Not indwelling catheter Results - Labs CBC & Chem 7: 12/02/17 06:00 12/02/17 06:00 Assessment and Plan - Assessment (1) Endocarditis Code(s): I38 - Endocarditis, valve unspecified Status: Acute (2) Sepsis Code(s): A41.9 - Sepsis, unspecified organism Status: Acute (3) Stroke, embolic Code(s): I63.9 - Cerebral infarction, unspecified Status: Acute (4) IV drug abuse Code(s): F19.10 - Other psychoactive substance abuse, uncomplicated Status: Acute (5) MSSA bacteremia Code(s): R78.81 - Bacteremia Status: Acute - Plan 31 year old male with history of IVDU admitted 11/04 after he was found on the floor of his apartment altered with right-sided hemiparesis. The patient had originally presented to the ER on 10/30 with fevers and back pain. At that visit , MRI of the back was negative and he was discharged home. Blood cultures ended up returning positive for MSSA in 4 out of the 4 bottles. The patient was attempted to be contacted but unfortunately he could not be reached. Upon presentation back to the ED, CT brain demonstrated a small amount of subarachnoid blood and small areas of decreased density suggestive of acute infarcts, and MRI confirmed multiple small areas of infarct. He was admitted to the general ledger bookkeeper service where bedside echocardiogram revealed a large mobile mass ont he aortic valve with associated severe AV regurgitation. He was also found to have an INR of 9.8 with a concern that the IV drugs he was using were contaminated. He was transfused 4 units of FFP and FEIBA with normalization of his INR. He was intubated on 11/05 for acute respiratory failure, self-extubated 11/07 with subsequent reintubation later that day, and has since been extubated on 11/13. 12/09 Patient is stable. He is not in any distress. He is afebrile. VSS. Awake alert and following commands. 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 s/p PICC line placement. Discharge planning still in progress. - On cefazolin and Rifampin until 12/18 - Weekly CBC, creatinine and LFTs - next lab draw 12/09/17: Awaiting results Respiratory Acute respiratory failure - resolved Aspiration PNA, completed course of Levaquin MSSA sputum - Extubated since 11/13 - CXR 11/16 w/ findings suggestive of pulmonary edema - Supplemental O2 to maintain sats >92%. Patient has been satting well on RA - Bronchodilators Cardiovascular Cardiogenic shock Severe AV regurgitation Hypertension - Amlodipine held secondary to low BP, will continue to monitor BP and if measurements remain low will discontinue. 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 Subarachnoid bleed - resolved Right sided hemiparesis, resolving IVDU Seizures Fall 11/17 - Imaging: * Head CT 11/04 with new infarct R parietal lobe, faint subarachnoid hemorrhage over high parietal convex bilaterally * Head and neck CTA negative * MRI 11/04 with multiple infarcts suggesting embolic occlusion * Repeat head CT 11/05 with new large area of edema in L MCA territory with no significant mass effect or midline shift, cerebellar areas of edema, and apparent resolution of SAH * Repeat head CT 11/06 and 11/12 with stable edema, no new hemorrhage or infarct * MRI brain 11/13 showing evolving bilateral areas of infarction with mild mass effect on L lateral ventricle * EEG 11/04 w/ moderate diffuse encephalopathy but no seizure activity * Repeat EEG 11/12 abnormal but no apparent evidence of epileptiform features * CT head 11/17 after patient fell out of bed showing evolving left MCA territory and R parietal lobe infarcts with localized mass effect and probably petechial hemorrhage. No significant midline shift. Repeat CT Head 11/24 stable - Neurosurgery consulted, no surgical intervention at this time - Neurology following, ready for rehab neuro-mcdaniels. - Continue Keppra 1000mg BID. No seizure activity reported - Continue on Seroquel and Lexapro - Continue with PT/OT. Started on Gabapentin low dose for neuropathic pain RUE. Will plan to increase dose in the next several days. - ST recommending regular, thin liquids - Poor po intake. Noise Tester consulted for calorie count 11/26 to 11/29. Per note, no meals recorded. Plan to repeat calorie count this week. Noise Tester reconsulted, appreciate assistance. Calorie count repeated 12/02 to 12/05. Patient meeting 87%of his caloric needs. Heme Elevated INR at 9.8 - resolved Salicylate elevation Anemia - Elevated INR likely secondary to IV drug contamination - Corrected after 4 units FFP and FEIBA - Anemia likely secondary to acute illness - H&H stable - Hemodynamically stable - No signs of acute bleeding Depressed mood -Continue escitalopram DVT prophylaxis: holding pharmacologic DVT prophylaxis due to risks of hemorrhagic conversion GI prophylaxis: PPI Code Status: Full code Discharge Planning: Difficult placement, will require clearance by infectious disease. PT HAS NO INSURANCE FOR REHAB SERVICES. 12/02/17 HISTORY OF IVDA DISABILITY PAPERWORK FILED 11/25/17 . (2) Sepsis Qualifiers: Sepsis type: sepsis due to unspecified organism Qualified Code(s): A41.9 - Sepsis, unspecified organism
[2017-12-09 14:24] LABS: Baso # (Auto) 0.1 th/mm3 (0.0-0.2); Eos # (Auto) 0.2 th/mm3 (0.0-0.4); Eos % (Auto) 2.7 % (0.0-4.0); Hematocrit 31.9 % (39.0-51.0); Hemoglobin 10.6 gm/dL (13.0-17.0); Lymph # (Auto) 2.2 th/mm3 (1.0-4.8); Lymph % (Auto) 28.6 % (9.0-44.0); Mean Corpuscular Hemoglobin 28.9 pg (27.0-34.0); Mean Corpuscular Volume 87.4 fL (80.0-100.0); Mean Platelet Volume 9.3 fL (7.0-11.0); Mono # (Auto) 0.5 th/mm3 (0.0-0.9); Mono % (Auto) 6.8 % (0.0-8.0); Neut # (Auto) 4.7 th/mm3 (1.8-7.7); Neut % (Auto) 60.9 % (16.0-70.0); Platelet Count 211 th/mm3 (150-450); Red Blood Count 3.66 mil/mm3 (4.50-5.90); Red Cell Distribution Width 14.8 % (11.6-17.2); White Blood Count 7.8 th/mm3 (4.0-11.0)
[2017-12-09 14:47] LABS: Glomerular Filtration Rate Greater Than 89 mL/min (>89)
[2017-12-09 14:48] LABS: Albumin 2.4 g/dL (3.4-5.0)
[2017-12-09 14:49] LABS: Total Protein 7.9 g/dL (6.4-8.2)
[2017-12-09] MEDS: Hypromellose 0.3% Opth Gel 10 GM Bottle EACH EYE SCH (23:09)
[2017-12-10] MEDS: Oral Hygiene Kit OROPHARYNG SCH ×4 (00:58→18:06)
[2017-12-10] MEDS: levETIRAcetam 500 MG Tablet PO SCH ×2 (10:08→20:32)
[2017-12-10] MEDS: Gabapentin 100 MG Capsule PO SCH ×3 (10:08→18:06)
[2017-12-10] MEDS: QUEtiapine 25 MG Tablet PO SCH (10:09)
[2017-12-10] MEDS: Famotidine 20 MG Tablet PO SCH ×2 (10:09→20:32)
[2017-12-10] MEDS: Heparin Central Flush 100 UNIT/ML 5 ML Vial IV.FLUSH SCH (10:09)
[2017-12-10] MEDS: Senna/Docusate Sodium 8.6/50 MG Tablet PO SCH ×2 (10:09→20:33)
[2017-12-10] MEDS: Chlorhexidine 0.12% Oral Kit 15 ML UDC OROPHARYNG SCH ×2 (10:09→20:32)
[2017-12-10] MEDS: Escitalopram 10 MG Tablet PO SCH (10:09)
--- NOTE | 2017-12-10 13:19 | P.PNIM ---
Subjective Interval history: Patient seen and examined this morning. Afebrile vital signs stable. No acute events overnight. With physical therapist for his mobilization today. Still working on placement for the patient at this time. Likely require completion of antibiotics prior to the placement. Patient denies any severe concerns or complaints at this time Physical Exam Vital signs: Vital Signs 12/09/17 16:00 12/09/17 20:00 12/10/17 00:00 Temperature 97.6 F 97.8 F 98.5 F Pulse Rate 99 H 95 H 105 H Respiratory Rate 18 Blood Pressure 105/52 L 110/55 L 101/51 L Pulse Oximetry 96 95 95 12/10/17 04:00 12/10/17 08:00 12/10/17 12:00 Temperature 98.6 F 99.2 F 97.6 F Pulse Rate 104 H 107 H 117 H Respiratory Rate 18 Blood Pressure 124/51 L 116/54 L 104/51 L Pulse Oximetry 95 94 L 92 L Intake & Output 12/09/17 12/10/17 12/10/17 18:59 06:59 18:59 Intake Total 120 / 120 240 / 240 120 / 120 Balance 120 / 120 240 / 240 120 / 120 Weight 78.8 kg Intake: IV 120 / 120 240 / 240 120 / 120 Ancef Inj 2,000 MG In NS Inj 120 / 120 240 / 240 120 / 120 100 ML @ 240 mls/hr IV.SIG Q8H JONATHON Rx#:[id number] Other: # Voids 2 2 Narrative: GEN: Well-developed, well-nourished patient. No acute distress. CV: Regular rate and rhythm with murmur LUNGS: Clear to auscultation bilaterally. Normal respiratory effort. No wheezes , rales, rhonchi. GI: Soft, nontender, nondistended. No palpable masses. Bowel sounds WNL. EXT: No edema. NEURO/PSYCH: Afocal. Awake, alert, and oriented x3. Appropriate insight and judgment. - Urinary Catheter Management Indwelling Urethral Catheter Cath placed during this visit: no Reason for continuing: Not indwelling catheter Condom Cath placed during this visit: yes Reason for continuing: Not indwelling catheter Insertion date: 11/12/17 Straight Cath placed during this visit: no Reason for continuing: Not indwelling catheter Results - Labs CBC & Chem 7: 12/09/17 13:38 12/09/17 13:38 Laboratory Results - last 24 hr 12/09/17 12/09/17 12/09/17 13:38 13:38 13:38 WBC 7.8 RBC 3.66 L Hgb 10.6 L Hct 31.9 L MCV 87.4 MCH 28.9 MCHC 33.0 RDW 14.8 Plt Count 211 MPV 9.3 Neut % (Auto) 60.9 Lymph % (Auto) 28.6 Bartholomew % (Auto) 6.8 Eos % (Auto) 2.7 Baso % (Auto) 1.0 Neut # (Auto) 4.7 Lymph # (Auto) 2.2 Bartholomew # (Auto) 0.5 Eos # (Auto) 0.2 Baso # (Auto) 0.1 WBC Differential . Differential Comment Auto diff final Creatinine 0.81 Estimated GFR Greater than 89 Total Bilirubin 0.6 Direct Bilirubin 0.3 H Indirect Bilirubin 0.3 AST 27 ALT 26 Alkaline Phosphatase 63 Total Protein 7.9 Albumin 2.4 L Assessment and Plan - Assessment (1) Endocarditis Code(s): I38 - Endocarditis, valve unspecified Status: Acute (2) Sepsis Code(s): A41.9 - Sepsis, unspecified organism Status: Acute (3) Stroke, embolic Code(s): I63.9 - Cerebral infarction, unspecified Status: Acute (4) IV drug abuse Code(s): F19.10 - Other psychoactive substance abuse, uncomplicated Status: Acute (5) MSSA bacteremia Code(s): R78.81 - Bacteremia Status: Acute - Plan 31 year old male with history of IVDU admitted 11/04 after he was found on the floor of his apartment altered with right-sided hemiparesis. The patient had originally presented to the ER on 10/30 with fevers and back pain. At that visit , MRI of the back was negative and he was discharged home. Blood cultures ended up returning positive for MSSA in 4 out of the 4 bottles. The patient was attempted to be contacted but unfortunately he could not be reached. Upon presentation back to the ED, CT brain demonstrated a small amount of subarachnoid blood and small areas of decreased density suggestive of acute infarcts, and MRI confirmed multiple small areas of infarct. He was admitted to the supervisor real estate office service where bedside echocardiogram revealed a large mobile mass ont he aortic valve with associated severe AV regurgitation. He was also found to have an INR of 9.8 with a concern that the IV drugs he was using were contaminated. He was transfused 4 units of FFP and FEIBA with normalization of his INR. He was intubated on 11/05 for acute respiratory failure, self-extubated 11/07 with subsequent reintubation later that day, and has since been extubated on 11/13. 12/10 Patient is stable. He is not in any distress. He is afebrile. VSS. Awake alert and following commands. 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 s/p PICC line placement. Discharge planning still in progress. - On cefazolin and Rifampin until 12/18 - Weekly CBC, creatinine and LFTs Cardiovascular Cardiogenic shock Severe AV regurgitation Hypertension - Amlodipine held secondary to low BP, will continue to monitor BP and if measurements remain low will discontinue. 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 Subarachnoid bleed - resolved Right sided hemiparesis, resolving IVDU Seizures Fall 11/17 - Imaging: * Head CT 11/04 with new infarct R parietal lobe, faint subarachnoid hemorrhage over high parietal convex bilaterally * Head and neck CTA negative * MRI 11/04 with multiple infarcts suggesting embolic occlusion * Repeat head CT 11/05 with new large area of edema in L MCA territory with no significant mass effect or midline shift, cerebellar areas of edema, and apparent resolution of SAH * Repeat head CT 11/06 and 11/12 with stable edema, no new hemorrhage or infarct * MRI brain 11/13 showing evolving bilateral areas of infarction with mild mass effect on L lateral ventricle * EEG 11/04 w/ moderate diffuse encephalopathy but no seizure activity * Repeat EEG 11/12 abnormal but no apparent evidence of epileptiform features * CT head 11/17 after patient fell out of bed showing evolving left MCA territory and R parietal lobe infarcts with localized mass effect and probably petechial hemorrhage. No significant midline shift. Repeat CT Head 11/24 stable - Neurosurgery consulted, no surgical intervention at this time - Neurology following, ready for rehab neuro-mcdaniels. - Continue Keppra 1000mg BID. No seizure activity reported - Continue on Seroquel and Lexapro - Continue with PT/OT. Started on Gabapentin low dose for neuropathic pain RUE. Will plan to increase dose in the next several days. - ST recommending regular, thin liquids - Poor po intake. Rides Attendant consulted for calorie count 11/26 to 11/29. Per note, no meals recorded. Plan to repeat calorie count this week. Rides Attendant reconsulted, appreciate assistance. Calorie count repeated 12/02 to 12/05. Patient meeting 87%of his caloric needs. Depressed mood -Continue escitalopram DVT prophylaxis: holding pharmacologic DVT prophylaxis due to risks of hemorrhagic conversion GI prophylaxis: PPI Code Status: full code Discharge Planning: Difficult placement, will require clearance by infectious disease. PT HAS NO INSURANCE FOR REHAB SERVICES. 12/02/17 HISTORY OF IVDA DISABILITY PAPERWORK FILED 11/25/17 . (2) Sepsis Qualifiers: Sepsis type: sepsis due to unspecified organism Qualified Code(s): A41.9 - Sepsis, unspecified organism
[2017-12-10] MEDS: Hypromellose 0.3% Opth Gel 10 GM Bottle EACH EYE SCH (20:34)
[2017-12-11] MEDS: Oral Hygiene Kit OROPHARYNG SCH ×4 (02:22→17:23)
[2017-12-11] MEDS: levETIRAcetam 500 MG Tablet PO SCH ×2 (10:09→21:23)
[2017-12-11] MEDS: Famotidine 20 MG Tablet PO SCH ×2 (10:09→21:24)
[2017-12-11] MEDS: Escitalopram 10 MG Tablet PO SCH (10:09)
[2017-12-11] MEDS: Senna/Docusate Sodium 8.6/50 MG Tablet PO SCH ×2 (10:09→21:24)
[2017-12-11] MEDS: Heparin Central Flush 100 UNIT/ML 5 ML Vial IV.FLUSH SCH (10:10)
[2017-12-11] MEDS: QUEtiapine 25 MG Tablet PO SCH (10:10)
[2017-12-11] MEDS: Gabapentin 100 MG Capsule PO SCH ×3 (10:10→17:22)
[2017-12-11] MEDS: Chlorhexidine 0.12% Oral Kit 15 ML UDC OROPHARYNG SCH ×2 (10:11→21:22)
--- NOTE | 2017-12-11 10:55 | P.PNIM ---
Subjective Interval history: in no acute distress. afebrile. Physical Exam Vital signs: Vital Signs 12/10/17 12:00 12/10/17 16:00 12/10/17 20:00 Temperature 97.6 F 98.4 F 98.8 F Pulse Rate 117 H 107 H 107 H Respiratory Rate 18 18 18 Blood Pressure 104/51 L 104/48 L 103/50 L Pulse Oximetry 92 L 93 L 93 L 12/11/17 00:00 12/11/17 04:00 12/11/17 08:00 Temperature 98.2 F 97.9 F 97.3 F L Pulse Rate 107 H 103 H 107 H Respiratory Rate 18 18 12 Blood Pressure 105/51 L 102/50 L 102/49 L Pulse Oximetry 93 L 95 95 Intake & Output 12/10/17 12/11/17 12/11/17 18:59 06:59 18:59 Intake Total 840 / 840 240 / 240 Balance 840 / 840 240 / 240 Weight 78.8 kg Intake: IV 120 / 120 240 / 240 Ancef Inj 2,000 MG In NS Inj 120 / 120 240 / 240 100 ML @ 240 mls/hr IV.SIG Q8H JONATHON Rx#:[id number] Oral 720 / 720 Other: # Voids 2 2 - Constitutional no acute distress - Routine Respiratory Exam Present: CTA bilaterally - Routine Cardiovascular Exam Present: RRR - Routine Abdominal Exam Present: soft - Routine Extremities Exam Comments: no pedal edema. - Routine Neurological Exam awake. - Urinary Catheter Management Indwelling Urethral Catheter Cath placed during this visit: no Reason for continuing: Not indwelling catheter Condom Cath placed during this visit: yes Reason for continuing: Not indwelling catheter Insertion date: 11/12/17 Straight Cath placed during this visit: no Reason for continuing: Not indwelling catheter Results - Labs CBC & Chem 7: 12/09/17 13:38 12/09/17 13:38 Assessment and Plan - Assessment (1) Endocarditis Code(s): I38 - Endocarditis, valve unspecified Status: Acute (2) Sepsis Code(s): A41.9 - Sepsis, unspecified organism Status: Acute (3) Stroke, embolic Code(s): I63.9 - Cerebral infarction, unspecified Status: Acute (4) IV drug abuse Code(s): F19.10 - Other psychoactive substance abuse, uncomplicated Status: Acute (5) MSSA bacteremia Code(s): R78.81 - Bacteremia Status: Acute - Plan 31 year old male with history of IVDU admitted 11/04 after he was found on the floor of his apartment altered with right-sided hemiparesis. The patient had originally presented to the ER on 10/30 with fevers and back pain. At that visit , MRI of the back was negative and he was discharged home. Blood cultures ended up returning positive for MSSA in 4 out of the 4 bottles. The patient was attempted to be contacted but unfortunately he could not be reached. Upon presentation back to the ED, CT brain demonstrated a small amount of subarachnoid blood and small areas of decreased density suggestive of acute infarcts, and MRI confirmed multiple small areas of infarct. 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 He was also found to have an INR of 9.8 with a concern that the IV drugs he was using were contaminated. He was transfused 4 units of FFP and FEIBA with normalization of his INR. He was intubated on 11/05 for acute respiratory failure, self-extubated 11/07 with subsequent reintubation later that day, and has since been extubated on 11/13. 12/10 Patient is stable. He is not in any distress. He is afebrile. VSS. Awake alert and following commands. 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 s/p PICC line placement. Discharge planning still in progress. - On cefazolin and Rifampin until 12/18 - Weekly CBC, creatinine and LFTs Cardiovascular Cardiogenic shock Severe AV regurgitation Hypertension - Amlodipine held secondary to low BP, will continue to monitor BP and if measurements remain low will discontinue. 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 Subarachnoid bleed - resolved Right sided hemiparesis, resolving IVDU Seizures Fall 11/17 - Imaging: * Head CT 11/04 with new infarct R parietal lobe, faint subarachnoid hemorrhage over high parietal convex bilaterally * Head and neck CTA negative * MRI 11/04 with multiple infarcts suggesting embolic occlusion * Repeat head CT 11/05 with new large area of edema in L MCA territory with no significant mass effect or midline shift, cerebellar areas of edema, and apparent resolution of SAH * Repeat head CT 11/06 and 11/12 with stable edema, no new hemorrhage or infarct * MRI brain 11/13 showing evolving bilateral areas of infarction with mild mass effect on L lateral ventricle * EEG 11/04 w/ moderate diffuse encephalopathy but no seizure activity * Repeat EEG 11/12 abnormal but no apparent evidence of epileptiform features * CT head 11/17 after patient fell out of bed showing evolving left MCA territory and R parietal lobe infarcts with localized mass effect and probably petechial hemorrhage. No significant midline shift. Repeat CT Head 11/24 stable - Neurosurgery consulted, no surgical intervention at this time - Neurology following, ready for rehab neuro-mcdaniels. - Continue Keppra 1000mg BID. No seizure activity reported - Continue on Seroquel and Lexapro - Continue with PT/OT. Started on Gabapentin low dose for neuropathic pain RUE. Will plan to increase dose in the next several days. - ST recommending regular, thin liquids - Poor po intake. Product Design Specialist consulted for calorie count 11/26 to 11/29. Per note, no meals recorded. Plan to repeat calorie count this week. Product Design Specialist reconsulted, appreciate assistance. Calorie count repeated 12/02 to 12/05. Patient meeting 87%of his caloric needs. Depressed mood -Continue escitalopram DVT prophylaxis: holding pharmacologic DVT prophylaxis due to risks of hemorrhagic conversion GI prophylaxis: PPI Code Status: full code Discharge Planning: needs placement- (2) Sepsis Qualifiers: Sepsis type: sepsis due to unspecified organism Qualified Code(s): A41.9 - Sepsis, unspecified organism
[2017-12-11] MEDS: Hypromellose 0.3% Opth Gel 10 GM Bottle EACH EYE SCH (21:22)
[2017-12-12] MEDS: Oral Hygiene Kit OROPHARYNG SCH ×5 (00:37→23:32)
[2017-12-12] MEDS: Escitalopram 10 MG Tablet PO SCH (08:52)
[2017-12-12] MEDS: Gabapentin 100 MG Capsule PO SCH ×3 (08:52→17:00)
[2017-12-12] MEDS: Chlorhexidine 0.12% Oral Kit 15 ML UDC OROPHARYNG SCH ×2 (08:52→20:02)
[2017-12-12] MEDS: QUEtiapine 25 MG Tablet PO SCH (08:52)
[2017-12-12] MEDS: levETIRAcetam 500 MG Tablet PO SCH ×2 (08:52→20:59)
[2017-12-12] MEDS: Senna/Docusate Sodium 8.6/50 MG Tablet PO SCH ×2 (08:52→20:59)
[2017-12-12] MEDS: Famotidine 20 MG Tablet PO SCH ×2 (08:52→20:59)
[2017-12-12] MEDS: Heparin Central Flush 100 UNIT/ML 5 ML Vial IV.FLUSH SCH (08:53)
--- NOTE | 2017-12-12 09:28 | P.PNNEU ---
Subjective Active Medications: Active Medications Acetaminophen (Tylenol) 650 mg PO Q6H PRN PRN Reason: TEMPERATURE > 101 F Last Admin: 11/12/17 01:19 Dose: 650 mg Albuterol (Albuterol Neb (Prn)) 2.5 mg NEB Q2HR NEB PRN PRN Reason: DYSPNEA Amlodipine Besylate (Norvasc) 5 mg PO DAILY [facility] Last Admin: 12/03/17 09:07 Dose: Not Given Artificial Tears (Genteal Severe Dry Eye Relief 0.3% Opth Gel) 1 drops EACH EYE HS [facility] Last Admin: 12/11/17 21:22 Dose: Not Given Chlorhexidine Gluconate (Peridex 0.12% Oral Kit) 15 ml OROPHARYNG BID@0800, 2000 [facility] Last Admin: 12/12/17 08:52 Dose: Not Given Clonidine HCl (Catapres) 0.1 mg PO Q6H PRN PRN Reason: SBP>160, DBP>90 Cyclobenzaprine HCl (Flexeril) 5 mg PO BID PRN PRN Reason: SPASM Escitalopram Oxalate (Lexapro) 20 mg PO DAILY [facility] Last Admin: 12/12/17 08:52 Dose: 20 mg Famotidine (Pepcid) 20 mg PO BID [facility] Last Admin: 12/12/17 08:52 Dose: 20 mg Flumazenil (Romazecon Inj) 0.2 mg IV.PUSH Q1M PRN PRN Reason: OVERSEDATION Gabapentin (Neurontin) 100 mg PO TID [facility] Last Admin: 12/12/17 08:52 Dose: 100 mg Heparin Sodium (Porcine) (Heparin Central Flush) 0 unit IV.FLUSH DAILY [facility] Last Admin: 12/12/17 08:53 Dose: Not Given Heparin Sodium (Porcine) (Heparin Central Flush) 0 unit IV.FLUSH PRN PRN PRN Reason: Flush PICC Line Hyoscyamine (Levsin Liq) 0.125 mg SL Q4H PRN PRN Reason: SECRETIONS Cefazolin Sodium 2,000 mg/ (Sodium Chloride) 120 mls @ 240 mls/hr IV.SIG Q8H [facility] Stop: 12/18/17 23:00 Last Infusion: 12/12/17 09:24 Dose: Infused Labetalol HCl (Trandate Inj) 10 mg IV.PUSH Q1H PRN PRN Reason: SYS BP GREATER THAN 160 MMHG Levetiracetam (Keppra) 1,000 mg PO BID [facility] Last Admin: 12/12/17 08:52 Dose: 1,000 mg Nitroglycerin (Nitro-Bid 2% Oint) 1 inch TOPICAL Q6HR PRN PRN Reason: SBP>160, DBP>90 Ondansetron HCl (Zofran Odt) 4 mg PO Q6H PRN PRN Reason: NAUSEA OR VOMITING Potassium Bicarb/Potassium Chloride (K-Lyte Cl Eff) 50 meq PO ONCE [facility] Last Admin: 11/04/17 21:31 Dose: 50 meq Quetiapine Fumarate (Seroquel) 25 mg PO DAILY [facility] Last Admin: 12/12/17 08:52 Dose: 25 mg Rifampin (Rifampin) 300 mg PO Q12HR [facility] Last Admin: 12/12/17 08:52 Dose: 300 mg Senna/Docusate Sodium (Liv-Colace) 1 tab PO BID [facility] Last Admin: 12/12/17 08:52 Dose: 1 tab Sodium Chloride (Ns Flush) 0 ml IV.FLUSH PRN PRN PRN Reason: Flush After Blood Draws Sodium Chloride (Ns Flush) 0 ml IV.FLUSH PRN PRN PRN Reason: FLUSH AFTER USING IV ACCESS Sodium Chloride (Ns Flush) 0 ml IV.FLUSH DAILY [facility] Last Admin: 12/12/17 08:53 Dose: Not Given Sodium Chloride (Ns Flush) 2 ml IV.FLUSH BID [facility] Last Admin: 12/12/17 08:53 Dose: 2 ml Sodium Chloride (Ns Flush) 2 ml IV.FLUSH PRN PRN PRN Reason: FLUSH AFTER USING IV ACCESS Allergies/Adverse Reactions: Allergies Allergy/AdvReac Type Severity Reaction Status Date / Time No Known Allergies Allergy Unverified 10/30/17 21:54 Physical Exam Vital signs: Vital Signs 12/11/17 12:00 12/11/17 20:00 12/12/17 00:00 Temperature 97.9 F 98.8 F 97.6 F Pulse Rate 112 H 114 H 113 H Respiratory Rate 12 20 16 Blood Pressure 111/57 L 102/53 L 114/51 L Pulse Oximetry 92 L 96 94 L 12/12/17 04:00 12/12/17 07:00 Temperature 98.7 F Pulse Rate 105 H Respiratory Rate 14 12 Blood Pressure 101/49 L Pulse Oximetry 94 L Intake & Output 12/11/17 12/12/17 12/12/17 18:59 06:59 18:59 Intake Total 240 / 240 120 / 120 120 / 120 Balance 240 / 240 120 / 120 120 / 120 Weight 78.2 kg Intake: IV 240 / 240 120 / 120 120 / 120 Ancef Inj 2,000 MG In NS Inj 240 / 240 120 / 120 120 / 120 100 ML @ 240 mls/hr IV.SIG Q8H JONATHON Rx#:[id number] Other: # Voids 2 Date of Last Bowel Movement 12/11/17 Narrative: mood good moves all well still some moderate expressive aphasia - Urinary Catheter Management Indwelling Urethral Catheter Cath placed during this visit: no Reason for continuing: Not indwelling catheter Condom Cath placed during this visit: yes Reason for continuing: Not indwelling catheter Insertion date: 11/12/17 Straight Cath placed during this visit: no Reason for continuing: Not indwelling catheter Review/Management - Review/Management Plan: imp mri 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 when off sedatives? -- 11/13/17 no change leg tremor vs sz yest ct stable eeg neg sz on keppra pk to dc sedatives today on keppa 1000 bid 11/15/17 no sz loks well on keppra eeg neg stable neuro left mca cva endocarditis ready for rehab neurowise 11/18/17 dong better oob with sitter in room to prevent falls ? to floor? 11/21/17 looks much better really should be in a chair add lexapro to seroquel may calm him down some he did not have PT see him yesterday and they should work with him daily and get oob to chair he should be less agitated if in chair but hi needs sitter to prevent him form getting up on own 11/24/17 dong well overall impulsive gets agitated if needs to pee ow really much improved cont PT 12/02/17 improved neuro still some aphasia moving really well r side 12/12/17 really doing well stable to improved neuro can [facility] in 3 months
--- NOTE | 2017-12-12 12:08 | P.PNIM ---
Subjective Interval history: in no distress. no new complaints. Physical Exam Vital signs: Vital Signs 12/11/17 20:00 12/12/17 00:00 12/12/17 04:00 Temperature 98.8 F 97.6 F 98.7 F Pulse Rate 114 H 113 H 105 H Respiratory Rate 20 16 14 Blood Pressure 102/53 L 114/51 L 101/49 L Pulse Oximetry 96 94 L 94 L 12/12/17 07:00 12/12/17 08:00 12/12/17 10:15 Temperature 97.4 F L Pulse Rate 102 H Respiratory Rate 12 18 12 Blood Pressure 108/51 L Pulse Oximetry 95 Intake & Output 12/11/17 12/12/17 12/12/17 18:59 06:59 18:59 Intake Total 240 / 240 120 / 120 120 / 120 Balance 240 / 240 120 / 120 120 / 120 Weight 78.2 kg Intake: IV 240 / 240 120 / 120 120 / 120 Ancef Inj 2,000 MG In NS Inj 240 / 240 120 / 120 120 / 120 100 ML @ 240 mls/hr IV.SIG Q8H JONATHON Rx#:[id number] Other: # Voids 2 Date of Last Bowel Movement 12/11/17 - Constitutional no acute distress - Routine Respiratory Exam Present: CTA bilaterally - Routine Cardiovascular Exam Present: RRR - Routine Abdominal Exam Present: soft - Urinary Catheter Management Indwelling Urethral Catheter Cath placed during this visit: no Reason for continuing: Not indwelling catheter Condom Cath placed during this visit: yes Reason for continuing: Not indwelling catheter Insertion date: 11/12/17 Straight Cath placed during this visit: no Reason for continuing: Not indwelling catheter Results - Labs CBC & Chem 7: 12/09/17 13:38 12/09/17 13:38 Assessment and Plan - Assessment (1) Endocarditis Code(s): I38 - Endocarditis, valve unspecified Status: Acute (2) Sepsis Code(s): A41.9 - Sepsis, unspecified organism Status: Acute (3) Stroke, embolic Code(s): I63.9 - Cerebral infarction, unspecified Status: Acute (4) IV drug abuse Code(s): F19.10 - Other psychoactive substance abuse, uncomplicated Status: Acute (5) MSSA bacteremia Code(s): R78.81 - Bacteremia Status: Acute - Plan 31 year old male with history of IVDU admitted 11/04 after he was found on the floor of his apartment altered with right-sided hemiparesis. The patient had originally presented to the ER on 10/30 with fevers and back pain. At that visit , MRI of the back was negative and he was discharged home. Blood cultures ended up returning positive for MSSA in 4 out of the 4 bottles. The patient was attempted to be contacted but unfortunately he could not be reached. Upon presentation back to the ED, CT brain demonstrated a small amount of subarachnoid blood and small areas of decreased density suggestive of acute infarcts, and MRI confirmed multiple small areas of infarct. He was admitted to the slot machine key person service where bedside echocardiogram revealed a large mobile mass ont he aortic valve with associated severe AV regurgitation. He was also found to have an INR of 9.8 with a concern that the IV drugs he was using were contaminated. He was transfused 4 units of FFP and FEIBA with normalization of his INR. He was intubated on 11/05 for acute respiratory failure, self-extubated 11/07 with subsequent reintubation later that day, and has since been extubated on 11/13. 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 s/p PICC line placement. Discharge planning still in progress. - On cefazolin and Rifampin until 12/18 - Weekly CBC, creatinine and LFTs Cardiovascular Cardiogenic shock Severe AV regurgitation Hypertension - Amlodipine held secondary to low BP, will continue to monitor BP and if measurements remain low will discontinue. 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 Subarachnoid bleed - resolved Right sided hemiparesis, resolving IVDU Seizures Fall 11/17 - Imaging: * Head CT 11/04 with new infarct R parietal lobe, faint subarachnoid hemorrhage over high parietal convex bilaterally * Head and neck CTA negative * MRI 11/04 with multiple infarcts suggesting embolic occlusion * Repeat head CT 11/05 with new large area of edema in L MCA territory with no significant mass effect or midline shift, cerebellar areas of edema, and apparent resolution of SAH * Repeat head CT 11/06 and 11/12 with stable edema, no new hemorrhage or infarct * MRI brain 11/13 showing evolving bilateral areas of infarction with mild mass effect on L lateral ventricle * EEG 11/04 w/ moderate diffuse encephalopathy but no seizure activity * Repeat EEG 11/12 abnormal but no apparent evidence of epileptiform features * CT head 11/17 after patient fell out of bed showing evolving left MCA territory and R parietal lobe infarcts with localized mass effect and probably petechial hemorrhage. No significant midline shift. Repeat CT Head 11/24 stable - Neurosurgery consulted, no surgical intervention at this time - Neurology following, ready for rehab neuro-mcdaniels. - Continue Keppra 1000mg BID. No seizure activity reported - Continue on Seroquel and Lexapro - Continue with PT/OT. Started on Gabapentin low dose for neuropathic pain RUE. Will plan to increase dose in the next several days. - ST recommending regular, thin liquids - Poor po intake. Lab Systems Analyst consulted for calorie count 11/26 to 11/29. Per note, no meals recorded. Plan to repeat calorie count this week. Lab Systems Analyst reconsulted, appreciate assistance. Calorie count repeated 12/02 to 12/05. Patient meeting 87%of his caloric needs. Depressed mood -Continue escitalopram DVT prophylaxis: holding pharmacologic DVT prophylaxis due to risks of hemorrhagic conversion GI prophylaxis: PPI Code Status: full code Discharge Planning: needs placement- (2) Sepsis Qualifiers: Sepsis type: sepsis due to unspecified organism Qualified Code(s): A41.9 - Sepsis, unspecified organism
--- NOTE | 2017-12-12 13:53 | P.DIET ---
Nutritional Evaluation Type of nutrition evaluation: follow-up (Previous TF) Nutrition consult regarding: Tube Feeding Nutrition screening: MDC (Calorie Counting) Screening comments: Calorie Counts completed Subjective Subjective Comments: Expressive aphasia. Likes the chocolate flavor Ensure Enlive. Objective - Diagnosis Sepsis, Stroke Symptoms, r/o septic emboli of the brain - Objective % IBW: 116 (IBW = 142#) Body Weight Used for Calculations: Actual (81.6 kg) Energy Needs - Lower Range (kCal/kg): 25 Energy Needs - Upper Range (kCal/kg): 30 Lower Limit kCal/kg (kCals): 2,040 Upper Limit kCal/kg (kCals): 2,448 Lower Limit Protein Factor (Grams per Kg): 1.2 Upper Limit Protein Factor (Grams per Kg): 1.6 Lower Protein Needs (Protein): 98 Upper Protein Needs (Protein): 131 Dietitian Reviewed in Medical Record: Current diet, Curent medications, Intake & Output, Labs Diet Order: Heart Healthy Objective Comments: Med hx includes IVDU, DM, HTN Assessment Assessment: Pt was extubated on 11/13 and is on a Heart Healthy diet. He is receiving Ensure Enlive and Ensure Pudding TID on his trays. Weights reviewed: CBW 78.2 kg which indicates ~10# wt loss since admission but his wt has been relatively stable recently. Calorie counts from last week indicate the pt's average po intake was ~1770 kcals and 104 gms protein per day. This meets ~ 87% of his kcaloric needs and 100% of his protein needs. He does well with the chocolate Ensure Enlive. Will continue to monitor. Recommendations: 1. Continue Heart Healthy diet 2. Ensure Enlive TID. 3. Ensure pudding TID 4. RD will follow Dietitian to Monitor: Lab values, Supplement acceptance, Intake & Output, Diet tolerance, Weight change, PO Intake, Swallow recommendations, Medical course
[2017-12-12] MEDS: Hypromellose 0.3% Opth Gel 10 GM Bottle EACH EYE SCH (20:02)
[2017-12-13] MEDS: Oral Hygiene Kit OROPHARYNG SCH ×3 (03:46→15:45)
[2017-12-13] MEDS: Chlorhexidine 0.12% Oral Kit 15 ML UDC OROPHARYNG SCH ×2 (07:23→21:00)
[2017-12-13] MEDS: QUEtiapine 25 MG Tablet PO SCH (08:15)
[2017-12-13] MEDS: Famotidine 20 MG Tablet PO SCH ×2 (08:15→20:57)
[2017-12-13] MEDS: Escitalopram 10 MG Tablet PO SCH (08:15)
[2017-12-13] MEDS: levETIRAcetam 500 MG Tablet PO SCH ×2 (08:15→20:57)
[2017-12-13] MEDS: Gabapentin 100 MG Capsule PO SCH ×3 (08:15→17:15)
[2017-12-13] MEDS: Heparin Central Flush 100 UNIT/ML 5 ML Vial IV.FLUSH SCH (08:15)
[2017-12-13] MEDS: Senna/Docusate Sodium 8.6/50 MG Tablet PO SCH ×2 (08:15→21:00)
--- NOTE | 2017-12-13 10:54 | P.PNIM ---
Subjective Interval history: in no distress. clinically no change. Physical Exam Vital signs: Vital Signs 12/12/17 12:00 12/12/17 13:35 12/12/17 16:00 Temperature 98.5 F 97.6 F Pulse Rate 82 108 H Respiratory Rate 16 12 16 Blood Pressure 121/75 100/51 L Pulse Oximetry 94 L 93 L 12/12/17 21:15 12/13/17 00:30 12/13/17 05:15 Temperature 98 F 97.6 F 98 F Pulse Rate 100 H 101 H 100 H Respiratory Rate 17 18 17 Blood Pressure 107/54 L 110/60 105/55 L Pulse Oximetry 94 L 94 L 96 12/13/17 07:00 12/13/17 08:00 Temperature 97.2 F L Pulse Rate 112 H Respiratory Rate 12 16 Blood Pressure 113/56 L Pulse Oximetry 95 Intake & Output 12/12/17 12/13/17 12/13/17 18:59 06:59 18:59 Intake Total 480 / 480 1870 / 1870 120 / 120 Output Total 0 / 0 Balance 480 / 480 1870 / 1870 120 / 120 Weight 78.6 kg Intake: IV 240 / 240 120 / 120 120 / 120 Ancef Inj 2,000 MG In NS Inj 240 / 240 120 / 120 120 / 120 100 ML @ 240 mls/hr IV.SIG Q8H JONATHON Rx#:[id number] Oral 240 / 240 1750 / 1750 Output: Urine 0 / 0 Other: # Voids 2 # Bowel Movements 0 - Constitutional no acute distress - Routine Respiratory Exam Present: CTA bilaterally - Routine Cardiovascular Exam Present: RRR - Routine Abdominal Exam Present: soft - Urinary Catheter Management Indwelling Urethral Catheter Cath placed during this visit: no Reason for continuing: Not indwelling catheter Condom Cath placed during this visit: yes Reason for continuing: Not indwelling catheter Insertion date: 11/12/17 Straight Cath placed during this visit: no Reason for continuing: Not indwelling catheter Results - Labs CBC & Chem 7: 12/09/17 13:38 12/09/17 13:38 Assessment and Plan - Assessment (1) Endocarditis Code(s): I38 - Endocarditis, valve unspecified Status: Acute (2) Sepsis Code(s): A41.9 - Sepsis, unspecified organism Status: Acute (3) Stroke, embolic Code(s): I63.9 - Cerebral infarction, unspecified Status: Acute (4) IV drug abuse Code(s): F19.10 - Other psychoactive substance abuse, uncomplicated Status: Acute (5) MSSA bacteremia Code(s): R78.81 - Bacteremia Status: Acute - Plan 31 year old male with history of IVDU admitted 11/04 after he was found on the floor of his apartment altered with right-sided hemiparesis. The patient had originally presented to the ER on 10/30 with fevers and back pain. At that visit , MRI of the back was negative and he was discharged home. Blood cultures ended up returning positive for MSSA in 4 out of the 4 bottles. The patient was attempted to be contacted but unfortunately he could not be reached. Upon presentation back to the ED, CT brain demonstrated a small amount of subarachnoid blood and small areas of decreased density suggestive of acute infarcts, and MRI confirmed multiple small areas of infarct. He was admitted to the biological inspector service where bedside echocardiogram revealed a large mobile mass ont he aortic valve with associated severe AV regurgitation. He was also found to have an INR of 9.8 with a concern that the IV drugs he was using were contaminated. He was transfused 4 units of FFP and FEIBA with normalization of his INR. He was intubated on 11/05 for acute respiratory failure, self-extubated 11/07 with subsequent reintubation later that day, and has since been extubated on 11/13. 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 s/p PICC line placement. Discharge planning still in progress. - On cefazolin and Rifampin until 12/18 - Weekly CBC, creatinine and LFTs Cardiovascular Cardiogenic shock Severe AV regurgitation Hypertension - Amlodipine held secondary to low BP, will continue to monitor BP and if measurements remain low will discontinue. 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 Subarachnoid bleed - resolved Right sided hemiparesis, resolving IVDU Seizures Fall 11/17 - Imaging: * Head CT 11/04 with new infarct R parietal lobe, faint subarachnoid hemorrhage over high parietal convex bilaterally * Head and neck CTA negative * MRI 11/04 with multiple infarcts suggesting embolic occlusion * Repeat head CT 11/05 with new large area of edema in L MCA territory with no significant mass effect or midline shift, cerebellar areas of edema, and apparent resolution of SAH * Repeat head CT 11/06 and 11/12 with stable edema, no new hemorrhage or infarct * MRI brain 11/13 showing evolving bilateral areas of infarction with mild mass effect on L lateral ventricle * EEG 11/04 w/ moderate diffuse encephalopathy but no seizure activity * Repeat EEG 11/12 abnormal but no apparent evidence of epileptiform features * CT head 11/17 after patient fell out of bed showing evolving left MCA territory and R parietal lobe infarcts with localized mass effect and probably petechial hemorrhage. No significant midline shift. Repeat CT Head 11/24 stable - Neurosurgery consulted, no surgical intervention at this time - Neurology following, ready for rehab neuro-mcdaniels. - Continue Keppra 1000mg BID. No seizure activity reported - Continue on Seroquel and Lexapro - Continue with PT/OT. Started on Gabapentin low dose for neuropathic pain RUE. Will plan to increase dose in the next several days. - ST recommending regular, thin liquids - Poor po intake. Supervisor Food Checkers And Cashiers consulted for calorie count 11/26 to 11/29. Per note, no meals recorded. Plan to repeat calorie count this week. Supervisor Food Checkers And Cashiers reconsulted, appreciate assistance. Calorie count repeated 12/02 to 12/05. Patient meeting 87%of his caloric needs. Depressed mood -Continue escitalopram DVT prophylaxis: holding pharmacologic DVT prophylaxis due to risks of hemorrhagic conversion GI prophylaxis: PPI Code Status: full code Discharge Planning: needs placement- (2) Sepsis Qualifiers: Sepsis type: sepsis due to unspecified organism Qualified Code(s): A41.9 - Sepsis, unspecified organism
[2017-12-13] MEDS: Hypromellose 0.3% Opth Gel 10 GM Bottle EACH EYE SCH (21:00)
[2017-12-14] MEDS: Oral Hygiene Kit OROPHARYNG SCH ×4 (07:13→15:03)
[2017-12-14] MEDS: Chlorhexidine 0.12% Oral Kit 15 ML UDC OROPHARYNG SCH ×2 (07:59→21:46)
[2017-12-14] MEDS: Gabapentin 100 MG Capsule PO SCH ×3 (08:01→17:05)
[2017-12-14] MEDS: QUEtiapine 25 MG Tablet PO SCH (08:01)
[2017-12-14] MEDS: Senna/Docusate Sodium 8.6/50 MG Tablet PO SCH ×2 (08:01→21:40)
[2017-12-14] MEDS: levETIRAcetam 500 MG Tablet PO SCH ×2 (08:01→21:40)
[2017-12-14] MEDS: Escitalopram 10 MG Tablet PO SCH (08:01)
[2017-12-14] MEDS: Famotidine 20 MG Tablet PO SCH ×2 (08:01→21:40)
[2017-12-14] MEDS: Heparin Central Flush 100 UNIT/ML 5 ML Vial IV.FLUSH SCH (08:02)
--- NOTE | 2017-12-14 11:14 | P.PNIM ---
Subjective Interval history: in no distress. looks fairly comfortable. no new complaints. afebrile. Physical Exam Vital signs: Vital Signs 12/13/17 15:44 12/13/17 17:24 12/13/17 21:20 Temperature 97.7 F Pulse Rate 101 H Respiratory Rate 12 12 17 Blood Pressure 111/57 L Pulse Oximetry 96 12/14/17 00:00 12/14/17 05:30 12/14/17 08:00 Temperature 98 F 97.9 F 97.7 F Pulse Rate 88 78 105 H Respiratory Rate 18 17 20 Blood Pressure 115/65 118/62 109/49 L Pulse Oximetry 95 99 96 Intake & Output 12/13/17 12/14/17 12/14/17 18:59 06:59 18:59 Intake Total 240 / 240 1969 120 / 120 Balance 240 / 240 1969 120 / 120 Weight 79 kg Intake: IV 240 / 240 120 / 120 120 / 120 Ancef Inj 2,000 MG In NS Inj 240 / 240 120 / 120 120 / 120 100 ML @ 240 mls/hr IV.SIG Q8H JONATHON Rx#:[id number] Oral 1850 / 1850 Other: # Voids 3 # Bowel Movements 1 0 - Constitutional no acute distress - Routine Respiratory Exam Present: CTA bilaterally - Routine Cardiovascular Exam Present: RRR - Routine Abdominal Exam Present: soft - Routine Extremities Exam Comments: no pedal edema. - Routine Neurological Exam Present: alert - Urinary Catheter Management Indwelling Urethral Catheter Cath placed during this visit: no Reason for continuing: Not indwelling catheter Condom Cath placed during this visit: yes Reason for continuing: Not indwelling catheter Insertion date: 11/12/17 Straight Cath placed during this visit: no Reason for continuing: Not indwelling catheter Results - Labs CBC & Chem 7: 12/09/17 13:38 12/09/17 13:38 Assessment and Plan - Assessment (1) Endocarditis Code(s): I38 - Endocarditis, valve unspecified Status: Acute (2) Sepsis Code(s): A41.9 - Sepsis, unspecified organism Status: Acute (3) Stroke, embolic Code(s): I63.9 - Cerebral infarction, unspecified Status: Acute (4) IV drug abuse Code(s): F19.10 - Other psychoactive substance abuse, uncomplicated Status: Acute (5) MSSA bacteremia Code(s): R78.81 - Bacteremia Status: Acute - Plan 31 year old male with history of IVDU admitted 11/04 after he was found on the floor of his apartment altered with right-sided hemiparesis. The patient had originally presented to the ER on 10/30 with fevers and back pain. At that visit , MRI of the back was negative and he was discharged home. Blood cultures ended up returning positive for MSSA in 4 out of the 4 bottles. The patient was attempted to be contacted but unfortunately he could not be reached. Upon presentation back to the ED, CT brain demonstrated a small amount of subarachnoid blood and small areas of decreased density suggestive of acute infarcts, and MRI confirmed multiple small areas of infarct. He was admitted to the mutuel machine operator service where bedside echocardiogram revealed a large mobile mass ont he aortic valve with associated severe AV regurgitation. He was also found to have an INR of 9.8 with a concern that the IV drugs he was using were contaminated. He was transfused 4 units of FFP and FEIBA with normalization of his INR. He was intubated on 11/05 for acute respiratory failure, self-extubated 11/07 with subsequent reintubation later that day, and has since been extubated on 11/13. 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 s/p PICC line placement. Discharge planning still in progress. - On cefazolin and Rifampin until 12/18 - Weekly CBC, creatinine and LFTs Cardiovascular Cardiogenic shock Severe AV regurgitation Hypertension - Amlodipine held secondary to low BP, will continue to monitor BP and if measurements remain low will discontinue. 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 Subarachnoid bleed - resolved Right sided hemiparesis, resolving IVDU Seizures Fall 11/17 - Imaging: * Head CT 11/04 with new infarct R parietal lobe, faint subarachnoid hemorrhage over high parietal convex bilaterally * Head and neck CTA negative * MRI 11/04 with multiple infarcts suggesting embolic occlusion * Repeat head CT 11/05 with new large area of edema in L MCA territory with no significant mass effect or midline shift, cerebellar areas of edema, and apparent resolution of SAH * Repeat head CT 11/06 and 11/12 with stable edema, no new hemorrhage or infarct * MRI brain 11/13 showing evolving bilateral areas of infarction with mild mass effect on L lateral ventricle * EEG 11/04 w/ moderate diffuse encephalopathy but no seizure activity * Repeat EEG 11/12 abnormal but no apparent evidence of epileptiform features * CT head 11/17 after patient fell out of bed showing evolving left MCA territory and R parietal lobe infarcts with localized mass effect and probably petechial hemorrhage. No significant midline shift. Repeat CT Head 11/24 stable - Neurosurgery consulted, no surgical intervention at this time - Neurology following, ready for rehab neuro-mcdaniels. - Continue Keppra 1000mg BID. No seizure activity reported - Continue on Seroquel and Lexapro - Continue with PT/OT. Started on Gabapentin low dose for neuropathic pain RUE. - ST recommending regular, thin liquids - Poor po intake. Six Color Press Operator consulted for calorie count 11/26 to 11/29. Per note, no meals recorded. Six Color Press Operator reconsulted, appreciate assistance. Calorie count repeated 12/02 to 12/05. Patient meeting 87%of his caloric needs. Depressed mood -Continue escitalopram DVT prophylaxis: holding pharmacologic DVT prophylaxis due to risks of hemorrhagic conversion GI prophylaxis: PPI Code Status: full code Discharge Planning: needs placement- (2) Sepsis Qualifiers: Sepsis type: sepsis due to unspecified organism Qualified Code(s): A41.9 - Sepsis, unspecified organism
[2017-12-14] MEDS: Hypromellose 0.3% Opth Gel 10 GM Bottle EACH EYE SCH (21:46)
[2017-12-15] MEDS: Oral Hygiene Kit OROPHARYNG SCH ×4 (01:35→16:19)
[2017-12-15] MEDS: Chlorhexidine 0.12% Oral Kit 15 ML UDC OROPHARYNG SCH ×2 (07:21→21:25)
[2017-12-15] MEDS: levETIRAcetam 500 MG Tablet PO SCH ×2 (08:05→21:24)
[2017-12-15] MEDS: Heparin Central Flush 100 UNIT/ML 5 ML Vial IV.FLUSH SCH (08:05)
[2017-12-15] MEDS: Famotidine 20 MG Tablet PO SCH ×2 (08:05→21:24)
[2017-12-15] MEDS: Gabapentin 100 MG Capsule PO SCH ×3 (08:05→17:52)
[2017-12-15] MEDS: Escitalopram 10 MG Tablet PO SCH (08:05)
[2017-12-15] MEDS: Senna/Docusate Sodium 8.6/50 MG Tablet PO SCH ×2 (08:05→21:24)
[2017-12-15] MEDS: QUEtiapine 25 MG Tablet PO SCH (08:05)
--- NOTE | 2017-12-15 10:34 | P.PNIM ---
Subjective Interval history: in no distress. no new complaints. Physical Exam Vital signs: Vital Signs 12/14/17 12:00 12/14/17 16:00 12/14/17 19:48 Temperature 97.8 F 97.9 F 97.7 F Pulse Rate 113 H 106 H 94 H Respiratory Rate 20 20 20 Blood Pressure 116/56 L 105/51 L 112/51 L Pulse Oximetry 94 L 95 97 12/15/17 00:00 12/15/17 04:00 12/15/17 08:00 Temperature 98.2 F 97.4 F L 98.2 F Pulse Rate 106 H 106 H 107 H Respiratory Rate 18 18 18 Blood Pressure 109/49 L 92/43 L 102/50 L Pulse Oximetry 94 L 94 L 95 Intake & Output 12/14/17 12/15/17 12/15/17 18:59 06:59 18:59 Intake Total 240 / 240 120 / 120 120 / 120 Balance 240 / 240 120 / 120 120 / 120 Weight 77.3 kg Intake: IV 240 / 240 120 / 120 120 / 120 Ancef Inj 2,000 MG In NS Inj 240 / 240 120 / 120 120 / 120 100 ML @ 240 mls/hr IV.SIG Q8H JONATHON Rx#:[id number] Other: Date of Last Bowel Movement 12/14/17 - Constitutional no acute distress - Routine Respiratory Exam Present: CTA bilaterally - Routine Cardiovascular Exam Present: RRR - Routine Abdominal Exam Present: soft - Urinary Catheter Management Indwelling Urethral Catheter Cath placed during this visit: no Reason for continuing: Not indwelling catheter Condom Cath placed during this visit: yes Reason for continuing: Not indwelling catheter Insertion date: 11/12/17 Straight Cath placed during this visit: no Reason for continuing: Not indwelling catheter Results - Labs CBC & Chem 7: 12/09/17 13:38 12/09/17 13:38 Assessment and Plan - Assessment (1) Endocarditis Code(s): I38 - Endocarditis, valve unspecified Status: Acute (2) Sepsis Code(s): A41.9 - Sepsis, unspecified organism Status: Acute (3) Stroke, embolic Code(s): I63.9 - Cerebral infarction, unspecified Status: Acute (4) IV drug abuse Code(s): F19.10 - Other psychoactive substance abuse, uncomplicated Status: Acute (5) MSSA bacteremia Code(s): R78.81 - Bacteremia Status: Acute - Plan 31 year old male with history of IVDU admitted 11/04 after he was found on the floor of his apartment altered with right-sided hemiparesis. The patient had originally presented to the ER on 10/30 with fevers and back pain. At that visit , MRI of the back was negative and he was discharged home. Blood cultures ended up returning positive for MSSA in 4 out of the 4 bottles. The patient was attempted to be contacted but unfortunately he could not be reached. Upon presentation back to the ED, CT brain demonstrated a small amount of subarachnoid blood and small areas of decreased density suggestive of acute infarcts, and MRI confirmed multiple small areas of infarct. 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 He was also found to have an INR of 9.8 with a concern that the IV drugs he was using were contaminated. He was transfused 4 units of FFP and FEIBA with normalization of his INR. He was intubated on 11/05 for acute respiratory failure, self-extubated 11/07 with subsequent reintubation later that day, and has since been extubated on 11/13. 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 s/p PICC line placement. Discharge planning still in progress. - On cefazolin and Rifampin until 12/18 - Weekly CBC, creatinine and LFTs Cardiovascular Cardiogenic shock Severe AV regurgitation Hypertension - Amlodipine held secondary to low BP, will continue to monitor BP and if measurements remain low will discontinue. 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 Subarachnoid bleed - resolved Right sided hemiparesis, resolving IVDU Seizures Fall 11/17 - Imaging: * Head CT 11/04 with new infarct R parietal lobe, faint subarachnoid hemorrhage over high parietal convex bilaterally * Head and neck CTA negative * MRI 11/04 with multiple infarcts suggesting embolic occlusion * Repeat head CT 11/05 with new large area of edema in L MCA territory with no significant mass effect or midline shift, cerebellar areas of edema, and apparent resolution of SAH * Repeat head CT 11/06 and 11/12 with stable edema, no new hemorrhage or infarct * MRI brain 11/13 showing evolving bilateral areas of infarction with mild mass effect on L lateral ventricle * EEG 11/04 w/ moderate diffuse encephalopathy but no seizure activity * Repeat EEG 11/12 abnormal but no apparent evidence of epileptiform features * CT head 11/17 after patient fell out of bed showing evolving left MCA territory and R parietal lobe infarcts with localized mass effect and probably petechial hemorrhage. No significant midline shift. Repeat CT Head 11/24 stable - Neurosurgery consulted, no surgical intervention at this time - Neurology following, ready for rehab neuro-mcdaniels. - Continue Keppra 1000mg BID. No seizure activity reported - Continue on Seroquel and Lexapro - Continue with PT/OT. Started on Gabapentin low dose for neuropathic pain RUE. - ST recommending regular, thin liquids - Poor po intake. Hand Tube Winder consulted for calorie count 11/26 to 11/29. Per note, no meals recorded. Hand Tube Winder reconsulted, appreciate assistance. Calorie count repeated 12/02 to 12/05. Patient meeting 87%of his caloric needs. Depressed mood -Continue escitalopram DVT prophylaxis: holding pharmacologic DVT prophylaxis due to risks of hemorrhagic conversion GI prophylaxis: PPI Code Status: full code Discharge Planning: needs placement- (2) Sepsis Qualifiers: Sepsis type: sepsis due to unspecified organism Qualified Code(s): A41.9 - Sepsis, unspecified organism
[2017-12-15] MEDS: Hypromellose 0.3% Opth Gel 10 GM Bottle EACH EYE SCH (21:25)
[2017-12-16] MEDS: Oral Hygiene Kit OROPHARYNG SCH ×4 (01:03→17:37)
[2017-12-16 05:42] LABS: Baso # (Auto) 0.1 th/mm3 (0.0-0.2); Baso % (Auto) 1.4 % (0.0-2.0); Eos # (Auto) 0.3 th/mm3 (0.0-0.4); Hematocrit 32.5 % (39.0-51.0); Lymph # (Auto) 2.4 th/mm3 (1.0-4.8); Lymph % (Auto) 30.5 % (9.0-44.0); Mean Corpuscular HGB Conc 33.8 % (32.0-36.0); Mean Corpuscular Volume 85.8 fL (80.0-100.0); Mean Platelet Volume 9.5 fL (7.0-11.0); Mono # (Auto) 0.6 th/mm3 (0.0-0.9); Mono % (Auto) 7.5 % (0.0-8.0); Neut # (Auto) 4.4 th/mm3 (1.8-7.7); Neut % (Auto) 56.6 % (16.0-70.0); Platelet Count 212 th/mm3 (150-450); Red Blood Count 3.78 mil/mm3 (4.50-5.90); Red Cell Distribution Width 15.4 % (11.6-17.2); White Blood Count 7.8 th/mm3 (4.0-11.0)
[2017-12-16 06:05] LABS: Alanine Aminotransferase 27 U/L (12-78); Albumin 2.5 g/dL (3.4-5.0); Anion Gap 10 meq/L (5-15); Aspartate Aminotransferase 23 U/L (15-37); Blood Urea Nitrogen 14 mg/dL (7-18); Calcium 8.2 mg/dL (8.5-10.1); Carbon Dioxide 22.1 meq/L (21.0-32.0); Chloride 110 meq/L (98-107); Glomerular Filtration Rate Greater Than 89 mL/min (>89); Glucose,Random 97 mg/dL (74-106); Potassium 3.9 meq/L (3.5-5.1); Sodium 142 meq/L (136-145)
[2017-12-16 06:07] LABS: Alkaline Phosphatase 69 U/L (45-117); Total Protein 7.5 g/dL (6.4-8.2)
[2017-12-16] MEDS: Gabapentin 100 MG Capsule PO SCH ×3 (09:00→17:42)
[2017-12-16] MEDS: Escitalopram 10 MG Tablet PO SCH (09:00)
[2017-12-16] MEDS: Senna/Docusate Sodium 8.6/50 MG Tablet PO SCH ×2 (09:00→21:01)
[2017-12-16] MEDS: Famotidine 20 MG Tablet PO SCH ×2 (09:00→21:01)
[2017-12-16] MEDS: levETIRAcetam 500 MG Tablet PO SCH ×2 (09:00→21:01)
[2017-12-16] MEDS: QUEtiapine 25 MG Tablet PO SCH (09:01)
[2017-12-16] MEDS: Heparin Central Flush 100 UNIT/ML 5 ML Vial IV.FLUSH SCH (09:02)
[2017-12-16] MEDS: Chlorhexidine 0.12% Oral Kit 15 ML UDC OROPHARYNG SCH ×2 (09:02→21:08)
--- NOTE | 2017-12-16 11:05 | P.PNIM ---
Subjective Interval history: in no acute distress. no new complaints. no fever. Physical Exam Vital signs: Vital Signs 12/15/17 12:00 12/15/17 16:00 12/15/17 20:00 Temperature 97.5 F L 97.7 F 97.5 F L Pulse Rate 107 H 109 H 111 H Respiratory Rate 18 18 18 Blood Pressure 91/42 L 110/51 L 104/51 L Pulse Oximetry 93 L 95 94 L 12/16/17 00:00 12/16/17 04:00 12/16/17 08:39 Temperature 97.7 F 97.4 F L 98.0 F Pulse Rate 109 H 108 H 109 H Respiratory Rate 18 18 18 Blood Pressure 117/51 L 103/50 L 106/53 L Pulse Oximetry 94 L 94 L 94 L Intake & Output 12/15/17 12/16/17 12/16/17 18:59 06:59 18:59 Intake Total 240 / 240 120 / 120 Output Total 200 / 200 Balance 240 / 240 -80 / -80 Weight 77.2 kg Intake: IV 240 / 240 120 / 120 Ancef Inj 2,000 MG In NS Inj 240 / 240 120 / 120 100 ML @ 240 mls/hr IV.SIG Q8H JONATHON Rx#:[id number] Output: Urine 200 / 200 Other: Date of Last Bowel Movement 12/15/17 12/15/17 - Constitutional no acute distress - Routine Respiratory Exam Present: CTA bilaterally - Routine Cardiovascular Exam Present: RRR - Routine Abdominal Exam Present: soft - Routine Extremities Exam Comments: no pedal edema. - Urinary Catheter Management Indwelling Urethral Catheter Cath placed during this visit: no Reason for continuing: Not indwelling catheter Condom Cath placed during this visit: yes Reason for continuing: Not indwelling catheter Insertion date: 11/12/17 Straight Cath placed during this visit: no Reason for continuing: Not indwelling catheter Results - Labs CBC & Chem 7: 12/16/17 05:04 12/16/17 05:04 Laboratory Results - last 24 hr 12/16/17 12/16/17 05:04 05:04 WBC 7.8 RBC 3.78 L Hgb 11.0 L Hct 32.5 L MCV 85.8 MCH 29.0 MCHC 33.8 RDW 15.4 Plt Count 212 MPV 9.5 Neut % (Auto) 56.6 Lymph % (Auto) 30.5 [place] % (Auto) 7.5 Eos % (Auto) 4.0 Baso % (Auto) 1.4 Neut # (Auto) 4.4 Lymph # (Auto) 2.4 [place] # (Auto) 0.6 Eos # (Auto) 0.3 Baso # (Auto) 0.1 WBC Differential . Differential Comment Auto diff final Sodium 142 Potassium 3.9 Chloride 110 H Carbon Dioxide 22.1 Anion Gap 10 BUN 14 Creatinine 0.85 Estimated GFR Greater than 89 Random Glucose 97 Calcium 8.2 L Total Bilirubin 0.4 AST 23 ALT 27 Alkaline Phosphatase 69 Total Protein 7.5 Albumin 2.5 L Assessment and Plan - Assessment (1) Endocarditis Code(s): I38 - Endocarditis, valve unspecified Status: Acute (2) Sepsis Code(s): A41.9 - Sepsis, unspecified organism Status: Acute (3) Stroke, embolic Code(s): I63.9 - Cerebral infarction, unspecified Status: Acute (4) IV drug abuse Code(s): F19.10 - Other psychoactive substance abuse, uncomplicated Status: Acute (5) MSSA bacteremia Code(s): R78.81 - Bacteremia Status: Acute - Plan 31 year old male with history of IVDU admitted 11/04 after he was found on the floor of his apartment altered with right-sided hemiparesis. The patient had originally presented to the ER on 10/30 with fevers and back pain. At that visit , MRI of the back was negative and he was discharged home. Blood cultures ended up returning positive for MSSA in 4 out of the 4 bottles. The patient was attempted to be contacted but unfortunately he could not be reached. Upon presentation back to the ED, CT brain demonstrated a small amount of subarachnoid blood and small areas of decreased density suggestive of acute infarcts, and MRI confirmed multiple small areas of infarct. He was admitted to the process eng service where bedside echocardiogram revealed a large mobile mass ont he aortic valve with associated severe AV regurgitation. He was also found to have an INR of 9.8 with a concern that the IV drugs he was using were contaminated. He was transfused 4 units of FFP and FEIBA with normalization of his INR. He was intubated on 11/05 for acute respiratory failure, self-extubated 11/07 with subsequent reintubation later that day, and has since been extubated on 11/13. 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 s/p PICC line placement. Discharge planning still in progress. - On cefazolin and Rifampin until 12/18 - Weekly CBC, creatinine and LFTs Cardiovascular Cardiogenic shock Severe AV regurgitation Hypertension - Amlodipine held secondary to low BP, will continue to monitor BP and if measurements remain low will discontinue. 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 Subarachnoid bleed - resolved Right sided hemiparesis, resolving IVDU Seizures Fall 11/17 - Imaging: * Head CT 11/04 with new infarct R parietal lobe, faint subarachnoid hemorrhage over high parietal convex bilaterally * Head and neck CTA negative * MRI 11/04 with multiple infarcts suggesting embolic occlusion * Repeat head CT 11/05 with new large area of edema in L MCA territory with no significant mass effect or midline shift, cerebellar areas of edema, and apparent resolution of SAH * Repeat head CT 11/06 and 11/12 with stable edema, no new hemorrhage or infarct * MRI brain 11/13 showing evolving bilateral areas of infarction with mild mass effect on L lateral ventricle * EEG 11/04 w/ moderate diffuse encephalopathy but no seizure activity * Repeat EEG 11/12 abnormal but no apparent evidence of epileptiform features * CT head 11/17 after patient fell out of bed showing evolving left MCA territory and R parietal lobe infarcts with localized mass effect and probably petechial hemorrhage. No significant midline shift. Repeat CT Head 11/24 stable - Neurosurgery consulted, no surgical intervention at this time - Neurology following, ready for rehab neuro-mcdaniels. - Continue Keppra 1000mg BID. No seizure activity reported - Continue on Seroquel and Lexapro - Continue with PT/OT. Started on Gabapentin low dose for neuropathic pain RUE. - ST recommending regular, thin liquids - Poor po intake. Explosive Operator Supervisor consulted for calorie count 11/26 to 11/29. Per note, no meals recorded. Explosive Operator Supervisor reconsulted, appreciate assistance. Calorie count repeated 12/02 to 12/05. Patient meeting 87%of his caloric needs. Depressed mood -Continue escitalopram DVT prophylaxis: holding pharmacologic DVT prophylaxis due to risks of hemorrhagic conversion GI prophylaxis: PPI Code Status: full code Discharge Planning: needs placement- (2) Sepsis Qualifiers: Sepsis type: sepsis due to unspecified organism Qualified Code(s): A41.9 - Sepsis, unspecified organism
[2017-12-16] MEDS: Hypromellose 0.3% Opth Gel 10 GM Bottle EACH EYE SCH (21:08)
[2017-12-17] MEDS: Oral Hygiene Kit OROPHARYNG SCH ×4 (02:26→18:08)
[2017-12-17] MEDS: levETIRAcetam 500 MG Tablet PO SCH ×2 (09:12→21:35)
[2017-12-17] MEDS: Escitalopram 10 MG Tablet PO SCH (09:12)
[2017-12-17] MEDS: Famotidine 20 MG Tablet PO SCH ×2 (09:12→21:35)
[2017-12-17] MEDS: QUEtiapine 25 MG Tablet PO SCH (09:13)
[2017-12-17] MEDS: Gabapentin 100 MG Capsule PO SCH ×3 (09:13→18:07)
[2017-12-17] MEDS: Senna/Docusate Sodium 8.6/50 MG Tablet PO SCH (09:13)
[2017-12-17] MEDS: Heparin Central Flush 100 UNIT/ML 5 ML Vial IV.FLUSH SCH (09:13)
[2017-12-17] MEDS: Chlorhexidine 0.12% Oral Kit 15 ML UDC OROPHARYNG SCH ×2 (09:13→21:38)
--- NOTE | 2017-12-17 10:50 | P.PNIM ---
Subjective Interval history: in no distress. clinically with no change. Physical Exam Vital signs: Vital Signs 12/16/17 13:13 12/16/17 13:15 12/16/17 16:00 Temperature 97.4 F L 97.6 F Pulse Rate 110 H 113 H 107 H Respiratory Rate 16 16 Blood Pressure 97/52 L 103/51 L 112/52 L Pulse Oximetry 99 96 12/16/17 20:00 12/17/17 00:00 12/17/17 04:00 Temperature 97.7 F 97.6 F 97.4 F L Pulse Rate 112 H 109 H 98 H Respiratory Rate 18 18 18 Blood Pressure 117/66 115/54 L 112/56 L Pulse Oximetry 96 92 L 93 L 12/17/17 08:00 Temperature 98.1 F Pulse Rate 108 H Respiratory Rate 14 Blood Pressure 107/49 L Pulse Oximetry 92 L Intake & Output 12/16/17 12/17/17 12/17/17 18:59 06:59 18:59 Intake Total 240 / 240 600 / 600 Balance 240 / 240 600 / 600 Weight 77.2 kg Intake: IV 240 / 240 120 / 120 Ancef Inj 2,000 MG In NS Inj 240 / 240 120 / 120 100 ML @ 240 mls/hr IV.SIG Q8H JONATHON Rx#:[id number] Oral 480 / 480 Other: # Voids 4 Date of Last Bowel Movement 12/15/17 12/17/17 # Incontinent Bowel Movements 1 - Constitutional no acute distress (no change clinically.) - Urinary Catheter Management Indwelling Urethral Catheter Cath placed during this visit: no Reason for continuing: Not indwelling catheter Condom Cath placed during this visit: yes Reason for continuing: Not indwelling catheter Insertion date: 11/12/17 Straight Cath placed during this visit: no Reason for continuing: Not indwelling catheter Results - Labs CBC & Chem 7: 12/16/17 05:04 12/16/17 05:04 Assessment and Plan - Assessment (1) Endocarditis Code(s): I38 - Endocarditis, valve unspecified Status: Acute (2) Sepsis Code(s): A41.9 - Sepsis, unspecified organism Status: Acute (3) Stroke, embolic Code(s): I63.9 - Cerebral infarction, unspecified Status: Acute (4) IV drug abuse Code(s): F19.10 - Other psychoactive substance abuse, uncomplicated Status: Acute (5) MSSA bacteremia Code(s): R78.81 - Bacteremia Status: Acute - Plan 31 year old male with history of IVDU admitted 11/04 after he was found on the floor of his apartment altered with right-sided hemiparesis. The patient had originally presented to the ER on 10/30 with fevers and back pain. At that visit , MRI of the back was negative and he was discharged home. Blood cultures ended up returning positive for MSSA in 4 out of the 4 bottles. The patient was attempted to be contacted but unfortunately he could not be reached. Upon presentation back to the ED, CT brain demonstrated a small amount of subarachnoid blood and small areas of decreased density suggestive of acute infarcts, and MRI confirmed multiple small areas of infarct. He was admitted to the men's designer service where bedside echocardiogram revealed a large mobile mass ont he aortic valve with associated severe AV regurgitation. He was also found to have an INR of 9.8 with a concern that the IV drugs he was using were contaminated. He was transfused 4 units of FFP and FEIBA with normalization of his INR. He was intubated on 11/05 for acute respiratory failure, self-extubated 11/07 with subsequent reintubation later that day, and has since been extubated on 11/13. 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 s/p PICC line placement. Discharge planning still in progress. - On cefazolin and Rifampin until 12/18 - Weekly CBC, creatinine and LFTs Cardiovascular Cardiogenic shock Severe AV regurgitation Hypertension - Amlodipine held secondary to low BP, will continue to monitor BP and if measurements remain low will discontinue. 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 Subarachnoid bleed - resolved Right sided hemiparesis, resolving IVDU Seizures Fall 11/17 - Imaging: * Head CT 11/04 with new infarct R parietal lobe, faint subarachnoid hemorrhage over high parietal convex bilaterally * Head and neck CTA negative * MRI 11/04 with multiple infarcts suggesting embolic occlusion * Repeat head CT 11/05 with new large area of edema in L MCA territory with no significant mass effect or midline shift, cerebellar areas of edema, and apparent resolution of SAH * Repeat head CT 11/06 and 11/12 with stable edema, no new hemorrhage or infarct * MRI brain 11/13 showing evolving bilateral areas of infarction with mild mass effect on L lateral ventricle * EEG 11/04 w/ moderate diffuse encephalopathy but no seizure activity * Repeat EEG 11/12 abnormal but no apparent evidence of epileptiform features * CT head 11/17 after patient fell out of bed showing evolving left MCA territory and R parietal lobe infarcts with localized mass effect and probably petechial hemorrhage. No significant midline shift. Repeat CT Head 11/24 stable - Neurosurgery consulted, no surgical intervention at this time - Neurology following, ready for rehab neuro-mcdaniels. - Continue Keppra 1000mg BID. No seizure activity reported - Continue on Seroquel and Lexapro - Continue with PT/OT. Started on Gabapentin low dose for neuropathic pain RUE. - ST recommending regular, thin liquids - Poor po intake. Rubber Boots And Shoes Repairer consulted for calorie count 11/26 to 11/29. Per note, no meals recorded. Rubber Boots And Shoes Repairer reconsulted, appreciate assistance. Calorie count repeated 12/02 to 12/05. Patient meeting 87%of his caloric needs. Depressed mood -Continue escitalopram DVT prophylaxis: holding pharmacologic DVT prophylaxis due to risks of hemorrhagic conversion GI prophylaxis: PPI continue current care. Code Status: full code Discharge Planning: needs placement- (2) Sepsis Qualifiers: Sepsis type: sepsis due to unspecified organism Qualified Code(s): A41.9 - Sepsis, unspecified organism
[2017-12-17] MEDS: Hypromellose 0.3% Opth Gel 10 GM Bottle EACH EYE SCH (21:38)
[2017-12-18] MEDS: Senna/Docusate Sodium 8.6/50 MG Tablet PO SCH ×3 (00:42→22:48)
[2017-12-18] MEDS: Oral Hygiene Kit OROPHARYNG SCH ×4 (01:21→17:10)
[2017-12-18] MEDS: QUEtiapine 25 MG Tablet PO SCH (10:00)
[2017-12-18] MEDS: Gabapentin 100 MG Capsule PO SCH ×3 (10:00→17:09)
[2017-12-18] MEDS: Chlorhexidine 0.12% Oral Kit 15 ML UDC OROPHARYNG SCH ×2 (10:00→22:48)
[2017-12-18] MEDS: Escitalopram 10 MG Tablet PO SCH (10:00)
[2017-12-18] MEDS: levETIRAcetam 500 MG Tablet PO SCH ×2 (10:00→22:47)
[2017-12-18] MEDS: Heparin Central Flush 100 UNIT/ML 5 ML Vial IV.FLUSH SCH (10:00)
[2017-12-18] MEDS: Famotidine 20 MG Tablet PO SCH ×2 (10:00→22:48)
--- NOTE | 2017-12-18 11:47 | P.PNIM ---
Subjective Interval history: in no distress. resting comfortably. no change. d/w the RN. Physical Exam Vital signs: Vital Signs 12/17/17 12:00 12/17/17 16:00 12/17/17 20:00 Temperature 98.2 F 98.5 F 97.5 F L Pulse Rate 113 H 115 H 108 H Respiratory Rate 14 14 18 Blood Pressure 99/48 L 115/56 L 120/55 L Pulse Oximetry 95 92 L 100 12/18/17 00:00 12/18/17 04:00 12/18/17 08:00 Temperature 97.5 F L 97.6 F 97.4 F L Pulse Rate 111 H 118 H 113 H Respiratory Rate 18 18 18 Blood Pressure 102/55 L 105/50 L 108/53 L Pulse Oximetry 100 99 100 Intake & Output 12/17/17 12/18/17 12/18/17 18:59 06:59 18:59 Intake Total 120 / 120 240 / 240 Balance 120 / 120 240 / 240 Weight 77.2 kg Intake: IV 120 / 120 240 / 240 Ancef Inj 2,000 MG In NS Inj 120 / 120 240 / 240 100 ML @ 240 mls/hr IV.SIG Q8H JONATHON Rx#:[id number] Other: # Voids 4 3 Date of Last Bowel Movement 12/17/17 - Constitutional no acute distress - Routine Respiratory Exam Present: CTA bilaterally - Routine Cardiovascular Exam Present: RRR - Routine Abdominal Exam Present: soft - Urinary Catheter Management Indwelling Urethral Catheter Cath placed during this visit: no Reason for continuing: Not indwelling catheter Condom Cath placed during this visit: yes Reason for continuing: Not indwelling catheter Insertion date: 11/12/17 Straight Cath placed during this visit: no Reason for continuing: Not indwelling catheter Results - Labs CBC & Chem 7: 12/16/17 05:04 12/16/17 05:04 Assessment and Plan - Assessment (1) Endocarditis Code(s): I38 - Endocarditis, valve unspecified Status: Acute (2) Sepsis Code(s): A41.9 - Sepsis, unspecified organism Status: Acute (3) Stroke, embolic Code(s): I63.9 - Cerebral infarction, unspecified Status: Acute (4) IV drug abuse Code(s): F19.10 - Other psychoactive substance abuse, uncomplicated Status: Acute (5) MSSA bacteremia Code(s): R78.81 - Bacteremia Status: Acute - Plan 31 year old male with history of IVDU admitted 11/04 after he was found on the floor of his apartment altered with right-sided hemiparesis. The patient had originally presented to the ER on 10/30 with fevers and back pain. At that visit , MRI of the back was negative and he was discharged home. Blood cultures ended up returning positive for MSSA in 4 out of the 4 bottles. The patient was attempted to be contacted but unfortunately he could not be reached. Upon presentation back to the ED, CT brain demonstrated a small amount of subarachnoid blood and small areas of decreased density suggestive of acute infarcts, and MRI confirmed multiple small areas of infarct. He was admitted to the roads and parking lots sweeper operator service where bedside echocardiogram revealed a large mobile mass ont he aortic valve with associated severe AV regurgitation. He was also found to have an INR of 9.8 with a concern that the IV drugs he was using were contaminated. He was transfused 4 units of FFP and FEIBA with normalization of his INR. He was intubated on 11/05 for acute respiratory failure, self-extubated 11/07 with subsequent reintubation later that day, and has since been extubated on 11/13. 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 s/p PICC line placement. Discharge planning still in progress. - On cefazolin and Rifampin until 12/18 - Weekly CBC, creatinine and LFTs Cardiovascular Cardiogenic shock Severe AV regurgitation Hypertension - Amlodipine held secondary to low BP, will continue to monitor BP and if measurements remain low will discontinue. 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 Subarachnoid bleed - resolved Right sided hemiparesis, resolving IVDU Seizures Fall 11/17 - Imaging: * Head CT 11/04 with new infarct R parietal lobe, faint subarachnoid hemorrhage over high parietal convex bilaterally * Head and neck CTA negative * MRI 11/04 with multiple infarcts suggesting embolic occlusion * Repeat head CT 11/05 with new large area of edema in L MCA territory with no significant mass effect or midline shift, cerebellar areas of edema, and apparent resolution of SAH * Repeat head CT 11/06 and 11/12 with stable edema, no new hemorrhage or infarct * MRI brain 11/13 showing evolving bilateral areas of infarction with mild mass effect on L lateral ventricle * EEG 11/04 w/ moderate diffuse encephalopathy but no seizure activity * Repeat EEG 11/12 abnormal but no apparent evidence of epileptiform features * CT head 11/17 after patient fell out of bed showing evolving left MCA territory and R parietal lobe infarcts with localized mass effect and probably petechial hemorrhage. No significant midline shift. Repeat CT Head 11/24 stable - Neurosurgery consulted, no surgical intervention at this time - Neurology following, ready for rehab neuro-mcdaniels. - Continue Keppra 1000mg BID. No seizure activity reported - Continue on Seroquel and Lexapro - Continue with PT/OT. Started on Gabapentin low dose for neuropathic pain RUE. - ST recommending regular, thin liquids - Poor po intake. Clinical Rn Liaison consulted for calorie count 11/26 to 11/29. Per note, no meals recorded. Clinical Rn Liaison reconsulted, appreciate assistance. Calorie count repeated 12/02 to 12/05. Patient meeting 87%of his caloric needs. Depressed mood -Continue escitalopram DVT prophylaxis: holding pharmacologic DVT prophylaxis due to risks of hemorrhagic conversion GI prophylaxis: PPI continue current care. Code Status: full code Discharge Planning: needs placement- (2) Sepsis Qualifiers: Sepsis type: sepsis due to unspecified organism Qualified Code(s): A41.9 - Sepsis, unspecified organism
--- NOTE | 2017-12-18 15:27 | P.DIET ---
Nutritional Evaluation Type of nutrition evaluation: follow-up (Previous TF) Nutrition consult regarding: Tube Feeding Nutrition screening: MDC (Calorie Counting) Screening comments: Calorie Counts completed Subjective Subjective Comments: Expressive aphasia. Likes the chocolate flavor Ensure Enlive. Eating ~75% of most meals. Objective - Diagnosis Sepsis, Stroke Symptoms, r/o septic emboli of the brain - Objective % IBW: 116 (IBW = 142#) Body Weight Used for Calculations: Actual (81.6 kg) Energy Needs - Lower Range (kCal/kg): 25 Energy Needs - Upper Range (kCal/kg): 30 Lower Limit kCal/kg (kCals): 2,040 Upper Limit kCal/kg (kCals): 2,448 Lower Limit Protein Factor (Grams per Kg): 1.2 Upper Limit Protein Factor (Grams per Kg): 1.6 Lower Protein Needs (Protein): 98 Upper Protein Needs (Protein): 131 Dietitian Reviewed in Medical Record: Current diet, Curent medications, Intake & Output, Labs Diet Order: Heart Healthy Speech Therapy Recommendations: Yes Objective Comments: Med hx includes IVDU, DM, HTN Assessment Assessment: Pt was extubated on 11/13 and is on a Regular diet. He is receiving Ensure Enlive and Ensure Pudding TID on his trays. Weights reviewed: CBW 77.2 kg which indicates relatively stable wt recently. BMI = 27.5 Calorie counts from 12/05 indicated the pt's average po intake was ~1770 kcals and 104 gms protein per day. This meets ~ 87% of his kcaloric needs and 100% of his protein needs. He does well with the chocolate Ensure Enlive. Recommendations: 1. Continue current diet 2. Ensure Enlive TID. 3. Ensure pudding TID 4. CONSULT RD if needed.
[2017-12-18] MEDS: Hypromellose 0.3% Opth Gel 10 GM Bottle EACH EYE SCH (22:49)
[2017-12-19] MEDS: Oral Hygiene Kit OROPHARYNG SCH ×4 (02:23→18:48)
[2017-12-19] MEDS ORDERED: Aluminum/Magnesium/Simethacone Susp 30 ML UDC PO ONE (05:49)
[2017-12-19] MEDS: Gabapentin 100 MG Capsule PO SCH ×3 (08:31→18:48)
[2017-12-19] MEDS: levETIRAcetam 500 MG Tablet PO SCH ×2 (08:31→21:15)
[2017-12-19] MEDS: Senna/Docusate Sodium 8.6/50 MG Tablet PO SCH ×2 (08:31→21:14)
[2017-12-19] MEDS: QUEtiapine 25 MG Tablet PO SCH (08:31)
[2017-12-19] MEDS: Famotidine 20 MG Tablet PO SCH ×2 (08:31→21:14)
[2017-12-19] MEDS: Chlorhexidine 0.12% Oral Kit 15 ML UDC OROPHARYNG SCH ×2 (08:32→21:15)
[2017-12-19] MEDS: Heparin Central Flush 100 UNIT/ML 5 ML Vial IV.FLUSH SCH (08:32)
[2017-12-19] MEDS: Escitalopram 10 MG Tablet PO SCH (10:06)
--- NOTE | 2017-12-19 11:46 | P.PNIM ---
Subjective Interval history: in no acute distress. reportedly had some abdominal pain and nausea earlier today. Physical Exam Vital signs: Vital Signs 12/18/17 12:00 12/18/17 17:22 12/18/17 20:00 Temperature 97.4 F L 97.5 F L 97.4 F L Pulse Rate 119 H 114 H 116 H Respiratory Rate 18 18 18 Blood Pressure 114/53 L 101/47 L 106/51 L Pulse Oximetry 97 97 98 12/19/17 00:00 12/19/17 04:00 12/19/17 08:00 Temperature 98.6 F 98.5 F 98.3 F Pulse Rate 113 H 118 H 113 H Respiratory Rate 18 18 20 Blood Pressure 119/53 L 114/54 L 109/53 L Pulse Oximetry 97 94 L 94 L Intake & Output 12/18/17 12/19/17 12/19/17 18:59 06:59 18:59 Intake Total 120 / 120 Balance 120 / 120 Weight 75.8 kg Intake: IV 120 / 120 Ancef Inj 2,000 MG In NS Inj 120 / 120 100 ML @ 240 mls/hr IV.SIG Q8H JONATHON Rx#:[id number] Other: # Voids 1 2 Date of Last Bowel Movement 12/17/17 12/18/17 - Constitutional no acute distress (no change clinically.) - Routine Respiratory Exam Present: CTA bilaterally - Routine Cardiovascular Exam Present: RRR - Routine Abdominal Exam Present: soft (minimal periumbilical tenderness.) - Urinary Catheter Management Indwelling Urethral Catheter Cath placed during this visit: no Reason for continuing: Not indwelling catheter Condom Cath placed during this visit: yes Reason for continuing: Not indwelling catheter Insertion date: 11/12/17 Straight Cath placed during this visit: no Reason for continuing: Not indwelling catheter Results - Labs CBC & Chem 7: 12/16/17 05:04 12/16/17 05:04 Assessment and Plan - Assessment (1) Endocarditis Code(s): I38 - Endocarditis, valve unspecified Status: Acute (2) Sepsis Code(s): A41.9 - Sepsis, unspecified organism Status: Acute (3) Stroke, embolic Code(s): I63.9 - Cerebral infarction, unspecified Status: Acute (4) IV drug abuse Code(s): F19.10 - Other psychoactive substance abuse, uncomplicated Status: Acute (5) MSSA bacteremia Code(s): R78.81 - Bacteremia Status: Acute - Plan 31 year old male with history of IVDU admitted 11/04 after he was found on the floor of his apartment altered with right-sided hemiparesis. The patient had originally presented to the ER on 10/30 with fevers and back pain. At that visit , MRI of the back was negative and he was discharged home. Blood cultures ended up returning positive for MSSA in 4 out of the 4 bottles. The patient was attempted to be contacted but unfortunately he could not be reached. Upon presentation back to the ED, CT brain demonstrated a small amount of subarachnoid blood and small areas of decreased density suggestive of acute infarcts, and MRI confirmed multiple small areas of infarct. He was admitted to the manager employee relations service where bedside echocardiogram revealed a large mobile mass ont he aortic valve with associated severe AV regurgitation. He was also found to have an INR of 9.8 with a concern that the IV drugs he was using were contaminated. He was transfused 4 units of FFP and FEIBA with normalization of his INR. He was intubated on 11/05 for acute respiratory failure, self-extubated 11/07 with subsequent reintubation later that day, and has since been extubated on 11/13. 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 s/p PICC line placement. Discharge planning still in progress. - finished the course of cefazolin and Rifampin on 12/18 - Cardiovascular Cardiogenic shock Severe AV regurgitation Hypertension - Amlodipine held secondary to low BP, will continue to monitor BP and if measurements remain low will discontinue. 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 Subarachnoid bleed - resolved Right sided hemiparesis, resolving IVDU Seizures Fall 11/17 - Imaging: * Head CT 11/04 with new infarct R parietal lobe, faint subarachnoid hemorrhage over high parietal convex bilaterally * Head and neck CTA negative * MRI 11/04 with multiple infarcts suggesting embolic occlusion * Repeat head CT 11/05 with new large area of edema in L MCA territory with no significant mass effect or midline shift, cerebellar areas of edema, and apparent resolution of SAH * Repeat head CT 11/06 and 11/12 with stable edema, no new hemorrhage or infarct * MRI brain 11/13 showing evolving bilateral areas of infarction with mild mass effect on L lateral ventricle * EEG 11/04 w/ moderate diffuse encephalopathy but no seizure activity * Repeat EEG 11/12 abnormal but no apparent evidence of epileptiform features * CT head 11/17 after patient fell out of bed showing evolving left MCA territory and R parietal lobe infarcts with localized mass effect and probably petechial hemorrhage. No significant midline shift. Repeat CT Head 11/24 stable - Neurosurgery consulted, no surgical intervention at this time - Neurology following, ready for rehab neuro-mcdaniels. - Continue Keppra 1000mg BID. No seizure activity reported - Continue on Seroquel and Lexapro - Continue with PT/OT. Started on Gabapentin low dose for neuropathic pain RUE. - ST recommending regular, thin liquids - Poor po intake. Marketing Secretary consulted for calorie count 11/26 to 11/29. Per note, no meals recorded. Marketing Secretary reconsulted, appreciate assistance. Calorie count repeated 12/02 to 12/05. Patient meeting 87%of his caloric needs. Depressed mood -Continue escitalopram nausea/abdominal pain- seems better- will monitor for now. DVT prophylaxis: holding pharmacologic DVT prophylaxis due to risks of hemorrhagic conversion GI prophylaxis: PPI continue current care. Code Status: full code Discharge Planning: needs placement- (2) Sepsis Qualifiers: Sepsis type: sepsis due to unspecified organism Qualified Code(s): A41.9 - Sepsis, unspecified organism
[2017-12-19] MEDS: Hypromellose 0.3% Opth Gel 10 GM Bottle EACH EYE SCH (21:15)
[2017-12-20] MEDS ORDERED: Melatonin 5 MG Tablet PO ONE (00:08)
[2017-12-20] MEDS: Oral Hygiene Kit OROPHARYNG SCH ×4 (01:35→18:39)
[2017-12-20] MEDS: levETIRAcetam 500 MG Tablet PO SCH ×2 (08:31→20:40)
[2017-12-20] MEDS: Gabapentin 100 MG Capsule PO SCH ×3 (08:31→18:39)
[2017-12-20] MEDS: QUEtiapine 25 MG Tablet PO SCH (08:31)
[2017-12-20] MEDS: Escitalopram 10 MG Tablet PO SCH (08:31)
[2017-12-20] MEDS: Famotidine 20 MG Tablet PO SCH ×2 (08:32→20:40)
[2017-12-20] MEDS: Senna/Docusate Sodium 8.6/50 MG Tablet PO SCH ×2 (08:32→20:40)
[2017-12-20] MEDS: Heparin Central Flush 100 UNIT/ML 5 ML Vial IV.FLUSH SCH (08:33)
[2017-12-20] MEDS: Chlorhexidine 0.12% Oral Kit 15 ML UDC OROPHARYNG SCH ×2 (08:33→20:39)
--- NOTE | 2017-12-20 11:10 | P.PNIM ---
Subjective Interval history: in no acute distress. still with abdominal pain. reportedly has on and off nausea. d/w the RN. Physical Exam Vital signs: Vital Signs 12/19/17 16:00 12/19/17 20:00 12/20/17 00:00 Temperature 98.2 F 98 F 97.8 F Pulse Rate 118 H 119 H 126 H Respiratory Rate 19 18 20 Blood Pressure 128/78 120/57 L 119/58 L Pulse Oximetry 96 94 L 98 12/20/17 04:00 12/20/17 08:00 Temperature 97.5 F L 97.9 F Pulse Rate 124 H 129 H Respiratory Rate 18 18 Blood Pressure 119/53 L 108/55 L Pulse Oximetry 96 100 Intake & Output 12/19/17 12/20/17 12/20/17 18:59 06:59 18:59 Weight 76.6 kg Other: # Voids 2 Date of Last Bowel Movement 12/18/17 12/18/17 12/18/17 # Bowel Movements 0 - Constitutional no acute distress - Routine Respiratory Exam Present: CTA bilaterally - Routine Cardiovascular Exam Present: RRR - Routine Abdominal Exam Present: soft, tenderness (periumbilical.) - Routine Extremities Exam Comments: no pedal edema. - Routine Neurological Exam Present: alert - Urinary Catheter Management Indwelling Urethral Catheter Cath placed during this visit: no Reason for continuing: Not indwelling catheter Condom Cath placed during this visit: yes Reason for continuing: Not indwelling catheter Insertion date: 11/12/17 Straight Cath placed during this visit: no Reason for continuing: Not indwelling catheter Results - Labs CBC & Chem 7: 12/16/17 05:04 12/16/17 05:04 Assessment and Plan - Assessment (1) Endocarditis Code(s): I38 - Endocarditis, valve unspecified Status: Acute (2) Sepsis Code(s): A41.9 - Sepsis, unspecified organism Status: Acute (3) Stroke, embolic Code(s): I63.9 - Cerebral infarction, unspecified Status: Acute (4) IV drug abuse Code(s): F19.10 - Other psychoactive substance abuse, uncomplicated Status: Acute (5) MSSA bacteremia Code(s): R78.81 - Bacteremia Status: Acute - Plan 31 year old male with history of IVDU admitted 11/04 after he was found on the floor of his apartment altered with right-sided hemiparesis. The patient had originally presented to the ER on 10/30 with fevers and back pain. At that visit , MRI of the back was negative and he was discharged home. Blood cultures ended up returning positive for MSSA in 4 out of the 4 bottles. The patient was attempted to be contacted but unfortunately he could not be reached. Upon presentation back to the ED, CT brain demonstrated a small amount of subarachnoid blood and small areas of decreased density suggestive of acute infarcts, and MRI confirmed multiple small areas of infarct. He was admitted to the commissioner public works service where bedside echocardiogram revealed a large mobile mass ont he aortic valve with associated severe AV regurgitation. He was also found to have an INR of 9.8 with a concern that the IV drugs he was using were contaminated. He was transfused 4 units of FFP and FEIBA with normalization of his INR. He was intubated on 11/05 for acute respiratory failure, self-extubated 11/07 with subsequent reintubation later that day, and has since been extubated on 11/13. 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 s/p PICC line placement. Discharge planning still in progress. - finished the course of cefazolin and Rifampin on 12/18 - Cardiovascular Cardiogenic shock Severe AV regurgitation Hypertension - Amlodipine held secondary to low BP, will continue to monitor BP and if measurements remain low will discontinue. 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 Subarachnoid bleed - resolved Right sided hemiparesis, resolving IVDU Seizures Fall 11/17 - Imaging: * Head CT 11/04 with new infarct R parietal lobe, faint subarachnoid hemorrhage over high parietal convex bilaterally * Head and neck CTA negative * MRI 11/04 with multiple infarcts suggesting embolic occlusion * Repeat head CT 11/05 with new large area of edema in L MCA territory with no significant mass effect or midline shift, cerebellar areas of edema, and apparent resolution of SAH * Repeat head CT 11/06 and 11/12 with stable edema, no new hemorrhage or infarct * MRI brain 11/13 showing evolving bilateral areas of infarction with mild mass effect on L lateral ventricle * EEG 11/04 w/ moderate diffuse encephalopathy but no seizure activity * Repeat EEG 11/12 abnormal but no apparent evidence of epileptiform features * CT head 11/17 after patient fell out of bed showing evolving left MCA territory and R parietal lobe infarcts with localized mass effect and probably petechial hemorrhage. No significant midline shift. Repeat CT Head 11/24 stable - Neurosurgery consulted, no surgical intervention at this time - Neurology following, ready for rehab neuro-mcdaniels. - Continue Keppra 1000mg BID. No seizure activity reported - Continue on Seroquel and Lexapro - Continue with PT/OT. Started on Gabapentin low dose for neuropathic pain RUE. - ST recommending regular, thin liquids - Poor po intake. Supervisor Customer Complaint Service consulted for calorie count 11/26 to 11/29. Per note, no meals recorded. Supervisor Customer Complaint Service reconsulted, appreciate assistance. Calorie count repeated 12/02 to 12/05. Patient meeting 87%of his caloric needs. Depressed mood -Continue escitalopram nausea/abdominal pain- worse today- will check CT abdomen- will consider GI evaluation- pending the CT and clinical course. keep NPO till CT resulted. DVT prophylaxis: holding pharmacologic DVT prophylaxis due to risks of hemorrhagic conversion GI prophylaxis: PPI continue current care. Code Status: full code Discharge Planning: needs placement- (2) Sepsis Qualifiers: Sepsis type: sepsis due to unspecified organism Qualified Code(s): A41.9 - Sepsis, unspecified organism
[2017-12-20 11:55] LABS: Baso # (Auto) 0.1 th/mm3 (0.0-0.2); Baso % (Auto) 1.3 % (0.0-2.0); Eos # (Auto) 0.1 th/mm3 (0.0-0.4); Eos % (Auto) 0.6 % (0.0-4.0); Hemoglobin 11.4 gm/dL (13.0-17.0); Lymph # (Auto) 2.6 th/mm3 (1.0-4.8); Lymph % (Auto) 26.4 % (9.0-44.0); Mean Corpuscular HGB Conc 32.6 % (32.0-36.0); Mean Corpuscular Hemoglobin 29.2 pg (27.0-34.0); Mean Corpuscular Volume 89.5 fL (80.0-100.0); Mean Platelet Volume 9.6 fL (7.0-11.0); Mono # (Auto) 0.9 th/mm3 (0.0-0.9); Mono % (Auto) 8.8 % (0.0-8.0); Neut # (Auto) 6.2 th/mm3 (1.8-7.7); Neut % (Auto) 62.9 % (16.0-70.0); Platelet Count 258 th/mm3 (150-450); Red Blood Count 3.91 mil/mm3 (4.50-5.90); Red Cell Distribution Width 15.9 % (11.6-17.2); White Blood Count 9.9 th/mm3 (4.0-11.0)
[2017-12-20] MEDS: Sod Chloride 0.9% Inj 1,000 ML IV.CONT SCH (12:36)
[2017-12-20] MEDS ORDERED: Diatrizoate Meglum/Diatrizoate Sod Liq 9 ML UDC PO ONE (13:30)
--- NOTE | 2017-12-20 16:43 | CT ---
EXAM DATE: 12/20/2017 4:39 PM EDT AGE/SEX: 32 years / Male INDICATIONS: Abdominal pain. CLINICAL DATA: This is the patient's initial encounter. Patient reports that signs and symptoms have been present for 2 days and indicates a pain score of 8/10. MEDICAL/SURGICAL HISTORY: Diabetes. Hypertension. None. ORAL CONTRAST: Prescribed oral contrast ingested. RADIATION DOSE: 7.56 CTDI (mGy) COMPARISON: No prior exams available for comparison. TECHNIQUE: Multiple contiguous axial images were obtained through the abdomen and pelvis following b olus infusion of 100 ml Omnipaque 350 (iohexol) nonionic water-soluble contrast as a single exam do se. Prescribed oral contrast ingested. Using automated exposure control and adjustment of the mA and /or kV according to patient size, radiation dose was kept as low as reasonably achievable to obtain o ptimal diagnostic quality images. DICOM format image data is available electronically for review and comparison. FINDINGS: Mild cardiomegaly with minimal interstitial prominence. No pleural effusion. Moderate fatty replacement to the liver without focal defects. Minimal pericholecystic fluid without gallstones. Spleen and pancreas unremarkable Adrenals and kidneys are unremarkable There are no inflammatory changes in the abdomen Pelvic contents unremarkable. Bladder prostate seminal vesicles appear normal There is no free fluid, free air or adenopathy appreciated. Review of bone windows reveals mild degenerative changes in the lower lumbar spine. CONCLUSION: 1. Mild cardiomegaly with minimal interstitial prominence 2. I do not see an etiology for the patient's abdominal pain. Electronically signed by: Jairo Gamez MD 12/20/2017 4:41 PM EDT
[2017-12-20] MEDS: Hypromellose 0.3% Opth Gel 10 GM Bottle EACH EYE SCH (20:39)
[2017-12-21] MEDS: Oral Hygiene Kit OROPHARYNG SCH ×4 (05:10→17:53)
[2017-12-21] MEDS: Sod Chloride 0.9% Inj 1,000 ML IV.CONT SCH ×3 (05:10→18:29)
[2017-12-21 10:04] VITALS: O2SAT 100
[2017-12-21] MEDS: Famotidine 20 MG Tablet PO SCH (10:06)
[2017-12-21] MEDS: Senna/Docusate Sodium 8.6/50 MG Tablet PO SCH (10:07)
[2017-12-21] MEDS: levETIRAcetam 500 MG Tablet PO SCH (10:07)
[2017-12-21] MEDS: Escitalopram 10 MG Tablet PO SCH (10:07)
[2017-12-21] MEDS: Chlorhexidine 0.12% Oral Kit 15 ML UDC OROPHARYNG SCH (10:07)
[2017-12-21] MEDS: QUEtiapine 25 MG Tablet PO SCH (10:07)
[2017-12-21] MEDS: Gabapentin 100 MG Capsule PO SCH ×2 (10:07→13:44)
[2017-12-21] MEDS: Heparin Central Flush 100 UNIT/ML 5 ML Vial IV.FLUSH SCH (10:08)
--- NOTE | 2017-12-21 10:10 | P.PNIM ---
Subjective Interval history: f/u; abdominal pain in no distress but very uncomfortable with abdominal pain. has on and off nausea. no fever. noted that was tachycardic over night. Physical Exam Vital signs: Vital Signs 12/20/17 12:00 12/20/17 16:00 12/20/17 20:00 Temperature 97.2 F L 98 F 97.3 F L Pulse Rate 120 H 124 H 125 H Respiratory Rate 18 18 18 Blood Pressure 106/51 L 112/56 L 105/44 L Pulse Oximetry 98 99 99 12/21/17 00:00 12/21/17 04:00 12/21/17 08:00 Temperature 97.9 F 98.4 F 97.5 F L Pulse Rate 128 H 134 H 131 H Respiratory Rate 18 18 20 Blood Pressure 121/58 L 119/53 L 139/59 L Pulse Oximetry 98 95 100 Intake & Output 12/20/17 12/21/17 12/21/17 18:59 06:59 18:59 Intake Total 720 / 720 Balance 720 / 720 Weight 76.9 kg Intake: Oral 720 / 720 Other: # Voids 4 1 Date of Last Bowel Movement 12/18/17 12/20/17 # Bowel Movements 1 - Constitutional no acute distress (but uncomfortable ) - Routine Respiratory Exam Present: CTA bilaterally - Routine Cardiovascular Exam Present: RRR - Routine Abdominal Exam Present: soft, tenderness (genaral tenderness.) - Routine Extremities Exam Comments: no pedal edema. - Routine Neurological Exam Present: alert, oriented X3 - Urinary Catheter Management Indwelling Urethral Catheter Cath placed during this visit: no Reason for continuing: Not indwelling catheter Condom Cath placed during this visit: yes Reason for continuing: Not indwelling catheter Insertion date: 11/12/17 Straight Cath placed during this visit: no Reason for continuing: Not indwelling catheter Results - Labs CBC & Chem 7: 12/21/17 16:45 12/21/17 16:45 Laboratory Results - last 24 hr 12/20/17 11:35 WBC 9.9 RBC 3.91 L Hgb 11.4 L Hct 35.0 L MCV 89.5 MCH 29.2 MCHC 32.6 RDW 15.9 Plt Count 258 MPV 9.6 Neut % (Auto) 62.9 Lymph % (Auto) 26.4 [place] % (Auto) 8.8 H Eos % (Auto) 0.6 Baso % (Auto) 1.3 Neut # (Auto) 6.2 Lymph # (Auto) 2.6 [place] # (Auto) 0.9 Eos # (Auto) 0.1 Baso # (Auto) 0.1 WBC Differential . Differential Comment Auto diff final - Imaging Impressions Abdomen/Pelvis CT 12/20/17 00:00 CONCLUSION: 1. Mild cardiomegaly with minimal interstitial prominence 2. I do not see an etiology for the patient's abdominal pain. Assessment and Plan - Assessment (1) Endocarditis Code(s): I38 - Endocarditis, valve unspecified Status: Acute (2) Sepsis Code(s): A41.9 - Sepsis, unspecified organism Status: Acute (3) Stroke, embolic Code(s): I63.9 - Cerebral infarction, unspecified Status: Acute (4) IV drug abuse Code(s): F19.10 - Other psychoactive substance abuse, uncomplicated Status: Acute (5) MSSA bacteremia Code(s): R78.81 - Bacteremia Status: Acute - Plan 31 year old male with history of IVDU admitted 11/04 after he was found on the floor of his apartment altered with right-sided hemiparesis. The patient had originally presented to the ER on 10/30 with fevers and back pain. At that visit , MRI of the back was negative and he was discharged home. Blood cultures ended up returning positive for MSSA in 4 out of the 4 bottles. The patient was attempted to be contacted but unfortunately he could not be reached. Upon presentation back to the ED, CT brain demonstrated a small amount of subarachnoid blood and small areas of decreased density suggestive of acute infarcts, and MRI confirmed multiple small areas of infarct. He was admitted to the prototype engineer manager service where bedside echocardiogram revealed a large mobile mass ont he aortic valve with associated severe AV regurgitation. He was also found to have an INR of 9.8 with a concern that the IV drugs he was using were contaminated. He was transfused 4 units of FFP and FEIBA with normalization of his INR. He was intubated on 11/05 for acute respiratory failure, self-extubated 11/07 with subsequent reintubation later that day, and has since been extubated on 11/13. 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 s/p PICC line placement. Discharge planning still in progress. - finished the course of cefazolin and Rifampin on 12/18 - Cardiovascular Cardiogenic shock Severe AV regurgitation Hypertension - Amlodipine held secondary to low BP, will continue to monitor BP and if measurements remain low will discontinue. 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 Subarachnoid bleed - resolved Right sided hemiparesis, resolving IVDU Seizures Fall 11/17 - Imaging: * Head CT 11/04 with new infarct R parietal lobe, faint subarachnoid hemorrhage over high parietal convex bilaterally * Head and neck CTA negative * MRI 11/04 with multiple infarcts suggesting embolic occlusion * Repeat head CT 11/05 with new large area of edema in L MCA territory with no significant mass effect or midline shift, cerebellar areas of edema, and apparent resolution of SAH * Repeat head CT 11/06 and 11/12 with stable edema, no new hemorrhage or infarct * MRI brain 11/13 showing evolving bilateral areas of infarction with mild mass effect on L lateral ventricle * EEG 11/04 w/ moderate diffuse encephalopathy but no seizure activity * Repeat EEG 11/12 abnormal but no apparent evidence of epileptiform features * CT head 11/17 after patient fell out of bed showing evolving left MCA territory and R parietal lobe infarcts with localized mass effect and probably petechial hemorrhage. No significant midline shift. Repeat CT Head 11/24 stable - Neurosurgery consulted, no surgical intervention at this time - Neurology following, ready for rehab neuro-mcdaniels. - Continue Keppra 1000mg BID. No seizure activity reported - Continue on Seroquel and Lexapro - Continue with PT/OT. Started on Gabapentin low dose for neuropathic pain RUE. - ST recommending regular, thin liquids - Poor po intake. Taxonomy Teacher consulted for calorie count 11/26 to 11/29. Per note, no meals recorded. Taxonomy Teacher reconsulted, appreciate assistance. Calorie count repeated 12/02 to 8/23. Patient meeting 87%of his caloric needs. Depressed mood -Continue escitalopram nausea/abdominal pain- hasn't improved- CT abdomen with no acute abnormality-will check lipase/CMP and will consult GI Tachycardia- might be due to the pain - will check d-dimer. DVT prophylaxis: holding pharmacologic DVT prophylaxis due to risks of hemorrhagic conversion GI prophylaxis: PPI continue current care. Code Status: full code Discharge Planning: needs placement-GI consulted. (2) Sepsis Qualifiers: Sepsis type: sepsis due to unspecified organism Qualified Code(s): A41.9 - Sepsis, unspecified organism
[2017-12-21] MEDS ORDERED: Pantoprazole Inj 40 MG Vial IV.PUSH SCH (11:00)
[2017-12-21 14:03] LABS: Anion Gap 19 meq/L (5-15); Aspartate Aminotransferase 560 U/L (15-37); Blood Urea Nitrogen 29 mg/dL (7-18); Calcium 8.1 mg/dL (8.5-10.1); Carbon Dioxide 12.2 meq/L (21.0-32.0); Chloride 103 meq/L (98-107); Glomerular Filtration Rate 39 mL/min (>89); Glucose,Random 102 mg/dL (74-106); Lipase 154 U/L (73-393); Potassium 4.8 meq/L (3.5-5.1); Sodium 134 meq/L (136-145)
[2017-12-21 14:07] LABS: Alanine Aminotransferase 364 U/L (12-78); Alkaline Phosphatase 69 U/L (45-117)
--- NOTE | 2017-12-21 15:25 | MB ---
cc: Gerald Blackmon MD DATE: 12/21/2017 REASON FOR CONSULTATION: Abdominal pain. HISTORY OF PRESENT ILLNESS: A 31-year-old male patient, IV drug abuser, who was admitted 2 weeks ago after he was found unconscious with a right-sided hemiparesis. The patient also had a history of a previous admission for evaluation of back pain and fever and had a CT scan that showed a small amount of subarachnoid blood and small area of decreased density suggestive of a brain infarction and that was confirmed later on by MRI. The patient also had an evaluation by echocardiogram showing large mobile mass to the aortic valve with associated severe aortic valve regurgitation and he was supratherapeutic at a high coagulation with an INR of 9.8. During the hospitalization, the patient was treated for sepsis with a different kind regimen of medications including antibiotics and supportive care. He started to have abdominal pain over the last 3 days. The area of abdominal pain is difficult to locate since the patient is having difficulty in communication, but likely it is the suprapubic area. The patient had multiple episodes of nausea and vomiting and unable to keep anything down. Otherwise, his bowel movements are reported as normal. His appetite decreased over the last few days and no other associated symptoms. REVIEW OF SYSTEMS: Unremarkable other than the ones mentioned in the history of present illness. Most of the data was obtained from his mom. The patient is difficult to communicate. PAST MEDICAL HISTORY: As mentioned before, the patient has a history of IV drug abuse. He had an endocarditis, septic emboli, pneumonia, lactic acidosis. Had cardiogenic shock and cardiomyopathy, CVA, seizure disorder. CURRENT MEDICATIONS: 1. Albuterol. 2. Amlodipine. 3. Clonidine. 4. Citalopram. 5. Famotidine. 6. Gabapentin. 7. Heparin. 8. Labetalol. 9. Keppra. 10. Pantoprazole. 11. Rifampin. 12. Zofran. ALLERGIES: NO KNOWN DRUG ALLERGIES. FAMILY HISTORY: Noncontributory. SOCIAL HISTORY: The patient is an IV drug abuser. Prolonged hospitalization since last admission. PHYSICAL EXAMINATION: GENERAL: The patient appears to be in discomfort at the current time, but breathing well. No respiratory distress. Hemodynamically stable. HEENT: Showed pallor appearance, but no jaundice. Atraumatic. Pupils equal, round, reactive to light. NECK: Supple neck. No lymphadenopathy. No thyromegaly. CHEST: Clear to auscultation bilaterally. No crackles or wheezes. CARDIOVASCULAR: Regular rate and rhythm. ABDOMEN: Tenderness in the suprapubic area and right upper quadrant area. No rebound tenderness. No hepatosplenomegaly. No palpable masses. EXTREMITIES: Normal pulses. No edema. NEUROLOGIC: Difficult to assess with his current status. SKIN: No rashes and appeared to be intact. LABORATORY DATA: Showed hemoglobin of 11.4, hematocrit 35.0. Sodium 134, otherwise electrolytes within normal limits. His creatinine increased to 1.99. Liver enzymes were normal last week. His current liver enzymes show an AST of 560, ALT 368, total bilirubin 1.7, albumin of 3. Lipase normal. CT scan of the abdomen did not show any evidence of any source for his abdominal pain. ASSESSMENT AND PLAN: This is a 52-year-old male patient with history of IV drug abuse, complicated by cerebrovascular accident, endocarditis, seizure disorder, who presented with: 1. Abdominal pain that is difficult to categorize, mostly in the suprapubic area and right upper quadrant area. 2. abnormal liver enzymes with recent worsening and they were normal last week. 3. CT scan showing no acute pathology in the abdomen. 4. Recent use of multiple medications and antibiotics for his sepsis. 5. Hepatitis C positive by serology. RECOMMENDATIONS: We will check a Doppler ultrasound of the liver along with a regular ultrasound to rule out a Budd-Chiari syndrome or vascular occlusion. Will follow his liver enzymes daily. Check amylase and lipase. Complete n.p.o. for the time being with aggressive hydration. Recheck urinalysis. Continue supportive care. We will follow up with you. Thank you for the consult. MD GUILLERMINA Bennett/tamiko , 02:50 PM , 03:04 PM
[2017-12-21 16:20] LABS: ABG Base Excess -24.4 mmol/L (-2-2); ABG PCO2 8 mmHg (38-42); ABG PO2 139 mmHG (61-120)
[2017-12-21] MEDS ORDERED: Sodium Bicarbonate 8.4% Inj 50 MEQ/50 ML Syringe ONE ×4 (16:20→19:36)
[2017-12-21] MEDS ORDERED: Etomidate Inj 40 MG/20 ML Vial IV.PUSH ONE (16:21)
[2017-12-21] MEDS ORDERED: Midazolam Inj 5 MG/ML 1 ML Vial ONE (16:21)
--- NOTE | 2017-12-21 16:25 | P.PNADD ---
Addendum to Inpatient Note Reason for Addendum: Additional Documentation (patient became tachypneic- CMP resulted and was reviewed with acidosis, elevated LFT's and acute kidney injury and was reviewed with .will obtain ABG, transfer to ICU. case was also d/w and care was transferred to master cosmetologist.)
[2017-12-21] MEDS ORDERED: Propofol Inj 500 MG/50 ML Vial ONE ×2 (16:27→17:35)
[2017-12-21] MEDS ORDERED: Piperacil/Tazo 4.5 GM Premix 4.5 GM/100 ML BAG IV.SIG SCH (16:55)
[2017-12-21] MEDS ORDERED: Sod Chloride 0.9% Inj 1,000 ML IV.SIG SCH (17:00)
--- NOTE | 2017-12-21 17:02 | P.PNCC ---
Subjective Subjective Remarks/Hospital Course: This is a 31yM who recently presented to the emergency department on 10/30 with subjective fevers and back pain. At that time he was given an MRI of the spine due to his IV drug use and concern for endocarditis. His MRI spine was negative and he was discharged home. Blood cultures that were drawn at that time returned 4 out of 4 bottles with MSSA. Patient was attempted to be contacted at his home to return for medical attention, but he was unable to be contacted. He represents today with acute altered mental status and was found on the floor of his apartment. He is aphasic and has significant right-sided hemiparesis/weakness. CT brain demonstrates a small amount of subarachnoid blood and small areas of decreased density suggestive of acute infarcts. MRI confirms multiple small areas of infarct. I evaluated the patient and he is quite altered and aphasic and no additional information is available from him. I performed bedside critical care ultrasonography which demonstrates a large mobile mass on the aortic valve with associated severe aortic regurgitation. No pericardial effusion. In addition all this, the patient has a new finding of an INR of 9.8 as well as an elevated salicylate level of 28. Given there is recent community history seated to suggest that some of the IV drugs in the area have been contaminated with rapid poison and or Coumadin/warfarin, I have a high degree of suspicion that the patient may have injected contaminated IV drugs. I have contacted poison control who is following along. We have ordered 4 units of FFP emergently to be released to the patient. We have called pharmacy and due to a national shortage of the drug, we do not have any [facility]ra available. I have also ordered FEIBA as an alternative to K [facility]ra. 11/05: INR has been corrected to normal. Repeat head CT shows no evidence of additional bleed. Noteworthy on head CT is new edema involving most of the temporal lobe on the left side, arising in the area of ischemic infarct. Other smaller defects are noted bilaterally. Blood cultures are growing MSSA, consistent with his IV drug use and aortic valve vegetation. Bilateral lung infiltrates noted on today's chest x-ray consistent with prehospital aspiration. 11/06: Tolerating spontaneous breathing trial with acceptable pressure support but oxygenation markedly impaired due to prehospital aspiration pneumonitis. No change in neurologic status. Cultures continued to be positive for staph aureus. 11/07: Continues to tolerate spontaneous breathing trials with acceptable pressure support. Minimal change in neurologic status and I cannot get him to follow any commands. Pre-albumin surprisingly low at 11, continue aggressive nutritional support. 11/08: Extubated himself yesterday morning and tolerated spontaneous breathing with supplemental oxygen during the day. In the early evening he became unable to protect his airway and his respiratory effort became much weaker. He required endotracheal intubation and mechanical ventilation thereafter. While extubated he did respond to simple commands including moving his left hand. He did repeat simple 2 and 3 word statements. The chest x-ray following reintubation is consistent with heart failure although the hemodynamics belie that, more consistent with an inflammatory process. 11/09: Tolerating ongoing diuresis. Gas exchange improving. Difficult to assess while sedated we will aim for re-extubation. 11/10: Ongoing septic pattern. First extubation was poorly tolerated by the patient and he remains to obtunded to extubate at this time. Converted from APRV back to conventional ventilation and now reducing PEEP. 11/11: Seen and examined. Remains febrile T-max of 101. Hemodynamically stable. Positive BM today. Tolerating tube feeding. 11/12: Remains intubated sedated with propofol and fentanyl. T-max 101.4. FiO2 35% but PEEP remains high at 12. Start weaning PEEP as tolerated. Attempt CPAP trials 11/13: Currently on propofol and fentanyl but more awake moving left upper and lower extremities spontaneously following some commands. Tolerating CPAP at high settings. Getting MRI per Dr. Hatfield, CT of the head yesterday was unchanged. T-max 101.1 11/14: Extubated 11/13 without complication. T-max 100.8. Continues with expressive aphasia. Right leg is out of bed. 11/15: Resting comfortably in bed. Advance to clear liquid diet. Replace potassium today. Neurologically cleared for rehab per neurologist SUBJECTIVE: 11/16: T-max 99.9. Currently 99. Currently on nasal cannula 2 L. Tolerated diet. Positive BM. Critical Care Re Consult Note. 31 year old male with admitted with aortic valve infective endocarditis, with staph aureus, with multiple systemic complications including acute CVA from septic emboli subarachnoid hemorrhage healthcare associated pneumonia, respiratory failure and shock. He was on critical care service was eventually weaned off ventilator transferred to hospital service. Recently he completed antibiotic treatment. He had been waiting for placement. However since last 2 days patient developed abdominal pain and nausea and vomiting. Patient underwent a CT of abdomen pelvis with IV contrast yesterday which did not show any acute findings. Today a highly CAT was called as patient was severely tachypneic pale with altered mental status. A stat ABG showed severe metabolic acidosis. 7.23 PCO2 was 8 PO2 139 and base excess of -24. Previous CMP showed a bicarb of 12. Patient's condition clinically deteriorated since afternoon and he was brought to the ICU where I met him. On my evaluation patient appeared extremely pale cyanotic breathing at 40 breaths per minute. He was confused unable to give any history but quick exam revealed abdominal tenderness. His CMP showed AST 560 ALT 364, Bb 1.7 All new from previous CMP on 12/16/2017. GI Dr. Rodrigez has seen him today. US liver has been ordered to rule out Budd-Chiari syndrome. Also in the differential diagnosis is bowel ischemia vs visceral perforation given aortic valve endocarditis and severe metabolic acidosis. Lactic acid is pending at this time. Resuscitated with 3 L normal saline bolus now, get CT abdomen pelvis without contrast, broad- spectrum antibiotics with Zosyn Objective Vital Signs / I&O: Vital Signs 12/20/17 20:00 12/21/17 00:00 12/21/17 04:00 Temperature 97.3 F L 97.9 F 98.4 F Pulse Rate 125 H 128 H 134 H Respiratory Rate 18 18 18 Blood Pressure 105/44 L 121/58 L 119/53 L Pulse Oximetry 99 98 95 12/21/17 08:00 12/21/17 16:40 Temperature 97.5 F L Pulse Rate 131 H Respiratory Rate 20 16 Blood Pressure 139/59 L Pulse Oximetry 100 100 Intake & Output 12/20/17 12/21/17 12/21/17 18:59 06:59 18:59 Intake Total 720 / 720 Balance 720 / 720 Weight 76.9 kg Intake: Oral 720 / 720 Other: # Voids 4 1 Date of Last Bowel Movement 12/18/17 12/20/17 12/20/17 # Bowel Movements 1 Result Diagrams: 12/21/17 16:45 12/21/17 16:45 Objective Remarks: GENERAL: 31-year-old male currently in severe respiratory distress, pale and acutely ill HEENT: Normocephalic. Atraumatic. NECK: Trachea is midline. No JVD or thyromegaly CHEST: Equal chest rise. Few scattered anterior crackles throughout. Severely tachypneic CARDIOVASCULAR: Tachycardic heart rate in 130s. 2/6 murmur right upper sternal border ABDOMEN: Abdomen is soft with diffuse tenderness. Cannot appreciate organomegaly by limited exam MUSCULOSKELETAL: Multiple linear scars over the bilateral upper and lower extremities consistent with needle fan. [place]ay lesions+ NEUROLOGICAL: Very limited exam due to severe distress. 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 Barton and Dr. Hatfield following - EEG previously: abnormal due to structural lesion such as stroke, but no apparent evidence of any epileptiform features. Will repeat EEG STAT -Continue levetiracetam Propofol started for sedation and vent synchrony, add fentanyl if needed Urine drug screen positive for fentanyl and salicylates and THC Respiratory: Acute respiratory failure secondary to severe metabolic acidosis, AMS Previous aspiration pneumonitis/MSSA -Required intubation for inability to control airway, and severe respiratory distress and tachypnea. Albuterol/ipratropium aerosols every 6 hours with albuterol aerosols every 2 hours as needed for dyspnea Sputum culture broad-spectrum antibiotics as below -Previously extubated 11/13 Cardiovascular: Sinus tachycardia/SIRS Severe metabolic acidosis/Lactic acidosis Severe aortic regurgitation/ Large aortic valve vegetation 1x1.7cm Mild aortic stenosis from vegetation 3 L normal saline bolus. Total 3 amps of bicarb given Start bicarb infusion at 150 mL/h 2D echocardiogram 11/04 revealed EF 60-65%. Severe AR. Vegetation 1.01.7 cm Not a candidate for valve replacement surgery, per CTS. Oralia 11/06 note Renal/: Acute kidney injury -Fontaine catheter -Fluid resuscitation and bicarb as above - monitor uop -- Strict I/Os Repeat BMP in a.m. FEN/GI: Abdominal pain with severe metabolic acidosis concerning for ischemic bowel versus perforation Acute protein calorie malnutrition- severe, temporal muscle wasting Hypoalbuminemia Hypopotassemia Severe transaminitis Stat CT abdomen pelvis to rule out visceral perforation, findings of ischemic bowel. Cannot use contrast due to creatinine of 2 Start liver ultrasound rule out cholecystitis, Budd-Chiari syndrome Strict n.p.o.Pantoprazole for GI prophylaxis Broad-spectrum antibiotic Heme/ID: Severe metabolic acidosis/lactic acidosis Shock Previous MSSA sepsis/pneumonia Infective endocarditis with large aortic valve vegetation -Check sputum blood and urine culture -Broad-spectrum antibiotics with IV Zosyn and vancomycin -Re Consult ID -INR 2.4 likely from severe sepsis -Completed course of antibiotics for infective endocarditis recently Previous blood cultures positive for MSSA 11/07, and . Subsequent 11/13, 11/11 /11/09 and 11/08 no growth to date. Sputum positive for MSSA, 11/05 Patient was deemed not a candidate for valve replacement surgery, seen by Dr. Barton 11/06 Endocrine: - SSI aspart low protocol every 6 hours Prophylaxis: GI Prophylaxis Pantoprazole DVT Prophylaxis -- SCDs holding pharmacologic DVT prophylaxis due to coagulopathy and recent subarachnoid hemorrhage Lines: Left subclavian CVL 12/21/17 fontaine CCT 82 Min excluding procedures Addendum: CT of the abdomen pelvis discussed with Dr. Ellis. No evidence of perforation or no evidence of advanced ischemic bowel. Dr. Ellis will also review the ultrasound of the liver and gallbladder. I have updated the mother at the bedside. Code Status: Full Discussed Condition With: Dr. Sewell, Dr. Mesa
[2017-12-21 17:04] LABS: Baso % (Auto) 0.3 % (0.0-2.0); Hematocrit 32.8 % (39.0-51.0); Hemoglobin 10.4 gm/dL (13.0-17.0); Lymph # (Auto) 0.9 th/mm3 (1.0-4.8); Lymph % (Auto) 9.3 % (9.0-44.0); Mean Corpuscular HGB Conc 31.7 % (32.0-36.0); Mean Corpuscular Hemoglobin 29.1 pg (27.0-34.0); Mean Corpuscular Volume 91.8 fL (80.0-100.0); Mean Platelet Volume 10.2 fL (7.0-11.0); Mono # (Auto) 0.8 th/mm3 (0.0-0.9); Mono % (Auto) 8.6 % (0.0-8.0); Neut % (Auto) 81.8 % (16.0-70.0); Platelet Count 199 th/mm3 (150-450); Red Blood Count 3.58 mil/mm3 (4.50-5.90); Red Cell Distribution Width 16.3 % (11.6-17.2); White Blood Count 9.8 th/mm3 (4.0-11.0)
[2017-12-21 17:14] LABS: INR 2.4 Ratio; Prothrombin Time 23.8 sec (9.8-11.6)
--- NOTE | 2017-12-21 17:23 | XR ---
EXAM DATE: 12/21/2017 5:14 PM EDT AGE/SEX: 32 years / Male INDICATIONS: Post intubation. Post central line placement. CLINICAL DATA: This is the patient's subsequent encounter. Patient reports that signs and symptoms h ave been present for 3 days and indicates a pain score of Nonresponsive. MEDICAL/SURGICAL HISTORY: Non-responsive. Non-responsive. COMPARISON: [facility] [place]ST 1V SINGLE AP, 12/01/2017. . FINDINGS: A single AP supine portable view the chest was obtained and demonstrates interval intubation with the endotracheal tube tip approximately 1 cm above the delon. A nasogastric tube has been placed and is seen coursing through the esophagus and into the stomach. There has been interval placement of a lef t subclavian central venous line with the tip projected over the superior vena cava. There is no pneu mothorax. The heart size appears mildly prominent. No confluent infiltrates or effusions are identifi ed. CONCLUSION: 1. Status post intubation and placement of left subclavian central venous line with no pneumothorax. 2. Placement of nasogastric tube. 3. Mid inspiratory study with a heart size at the upper limits of normal. Electronically signed by: Bartolo Yen MD 12/21/2017 5:22 PM EDT
[2017-12-21 17:27] LABS: VBG Base Excess -20.2 mmol/L (-2-2); VBG PCO2 39 mmHG (44-48); VBG PH 6.99 (7.360-7.400); VBG PO2 57 mmHG (35-40)
--- NOTE | 2017-12-21 17:29 | P.PCN ---
Date of procedure: 12/21/17 Pre-op diagnosis: Severe respiratory distress, metabolic acidosis Post-op diagnosis: same Procedure: Endotracheal intubation Patient in severe respiratory distress. Patient was appropriately positioned. Premedicated with 2 Amps of bicarb prior to intubation due to severe metabolic acidosis. Rapid sequence intubation with etomidate 20 mg IV, Versed 5 mg IV, rocuronium 50 mg IV. I entered the oropharynx with DL MAC 4 blade and obtained a grade 1 view. I intubated the patient with #8 ET tube. ET tube placement was confirmed by visualization of passing of the tube through the vocal cords, end-tidal CO2 color change, and bilateral breath sounds. Patient tolerated procedure well. Chest x-ray postprocedure is pending at this time Anesthesia: ELLAA Surgeon: Torsten Sy Estimated blood loss (mL): 0 Pathology: other Condition: critical Disposition: ICU
[2017-12-21 17:30] LABS: Magnesium 2.3 mg/dL (1.5-2.5)
[2017-12-21 17:33] LABS: Creatine Kinase 140 U/L (39-308); Troponin I 0.36 ng/mL (0.02-0.05)
--- NOTE | 2017-12-21 17:35 | P.PCN ---
Date of procedure: 12/21/17 Pre-op diagnosis: Severe metabolic acidosis, shock Post-op diagnosis: same Procedure: Left subclavian central line placement US guided central line Central line checklist completed, timeout completed. I wore a surgical cap, mask with protective eyewear, full gown and sterile gloves throughout the procedure. Left subclavian region was prepped using chlorhexidine scrub and draped in sterile fashion. Anesthesia was achieved over the vein using 1% lidocaine. The introducer needle was inserted into the left subclavian vein and venous blood was withdrawn. The syringe was removed and a guidewire was advanced into the introducer needle. A small incision was made at the skin surface with a scalpel and the introducer needle was exchanged for a dilator over the guidewire. After appropriate dilation was obtained, the dilator was exchanged over the wire for a triple lumen, 7F, antibiotic coated central venous catheter. The wire was removed and the catheter was sutured in place at 18cm. A sterile central line dressing was placed over the catheter at the insertion site. The patient tolerated the procedure without any hemodynamic compromise. At time of procedure completion, all ports aspirated and flushed properly. Post-procedure chest x-ray is pending at this time. Anesthesia: local Surgeon: Torsten Sy Estimated blood loss (mL): 1 Pathology: none sent Condition: critical Disposition: ICU
[2017-12-21] MEDS ORDERED: Propofol 1000 mg/100 ml Inj 1,000 MG/100 ML BOTTLE IV.CONT PRN (17:37)
[2017-12-21 17:39] LABS: ABG PCO2 29 mmHg (38-42); ABG PO2 217 mmHG (61-120)
[2017-12-21] MEDS ORDERED: Sodium Bicarbonate 8.4% Inj 150 MEQ in Water for Inj, Sterile 850 ML IV.CONT SCH (18:00)
[2017-12-21] MEDS ORDERED: Vancomycin Inj 1,000 MG in Sodium Chlor 0.9% Inj 250 ML IV.SIG ONE (18:00)
[2017-12-21 18:03] LABS: Phosphorus 8.8 mg/dL (2.5-4.9)
--- NOTE | 2017-12-21 18:04 | CT ---
EXAM DATE: 12/21/2017 5:58 PM EDT AGE/SEX: 32 years / Male INDICATIONS: Severe metabolic acidosis. Evaluate for perforation ischemia. CLINICAL DATA: This is the patient's subsequent encounter. Patient reports that signs and symptoms h ave been present for 2 days and indicates a pain score of Nonresponsive. MEDICAL/SURGICAL HISTORY: Diabetes. Hypertension. IV drug abuse. None. RADIATION DOSE: 14.43 CTDI (mGy) COMPARISON: [facility] – [place], [place] ABDOMEN & PELVIS W CONTRAST, 12/20/2017. . TECHNIQUE: Multiple contiguous axial images were obtained through the abdomen. Images were obtained using multiple row detector helical technique. Using automated exposure control and adjustment of the mA and/or kV according to patient size, radiation dose was kept as low as reasonably achievable to o btain optimal diagnostic quality images. DICOM format image data is available electronically for rev iew and comparison. FINDINGS: Lower Lungs: The lung bases demonstrate bilateral basilar airspace consolidation, worse within the ri ght lower lobe as well as within the right middle lobe. This is worse as compared to the exam one day prior. Liver: The liver demonstrates diffuse low attenuation and overall enlargement. No evidence of biliary obstruction. Gallbladder is significant for dilation with high density material identified within th e lumen and wall thickening. Spleen: Homogeneous density without enlargement. Pancreas: Unremarkable without mass or calcification. Kidneys: The left kidney is slightly smaller than the right. A demonstrate normal perfusion. Adrenal Glands: Unremarkable. Aorta: The aorta and proximal iliac vessels are grossly unremarkable without aneurysmal dilation. Bowel/Mesentery: The bowel loops are grossly unremarkable. The cecum and sigmoid colon have a normal configuration. Abdominal Wall: Intact. Retroperitoneum: No evidence of adenopathy in the retrocrural, para-aortic, or deep pelvic regions. Bladder: Decompressed with Hernandez catheter identified within the lumen. Reproductive Organs: No abnormal masses or calcifications seen. Inguinal: The inguinal region is unremarkable without evidence of adenopathy. Bony Structures: Unremarkable. CONCLUSION: 1. No evidence of bowel perforation. Worsening airspace consolidation identified within the lungs co ncerning for worsening infection. 2. The gallbladder is dilated with circumferential wall thickening and vicarious excretion of IV con trast within the lumen. Electronically signed by: Johanna Muñoz MD 12/21/2017 6:03 PM EDT
[2017-12-21 18:16] LABS: Alanine Aminotransferase 413 U/L (12-78); Albumin 2.6 g/dL (3.4-5.0); Anion Gap 28 meq/L (5-15); Aspartate Aminotransferase 623 U/L (15-37); Blood Urea Nitrogen 29 mg/dL (7-18); Calcium 7.6 mg/dL (8.5-10.1); Carbon Dioxide 9.4 meq/L (21.0-32.0); Chloride 103 meq/L (98-107); Glomerular Filtration Rate 31 mL/min (>89); Glucose,Random 70 mg/dL (74-106); Potassium 5.3 meq/L (3.5-5.1); Sodium 140 meq/L (136-145)
[2017-12-21 18:25] LABS: Alkaline Phosphatase 57 U/L (45-117); Creatine Kinase MB 1.6 ng/mL (0.5-3.6)
[2017-12-21 18:38] LABS: Total Protein 7.1 g/dL (6.4-8.2)
[2017-12-21 18:42] LABS: ABG Base Excess -23.2 mmol/L (-2-2); ABG PCO2 20 mmHg (38-42); ABG PO2 197 mmHG (61-120)
[2017-12-21] MEDS ORDERED: Mag Sulf 1 gm/100 ml Premix 200 ML IV.SIG ONE (19:10)
--- NOTE | 2017-12-21 19:17 | US ---
EXAM DATE: 12/21/2017 7:07 PM EDT AGE/SEX: 32 years / Male INDICATIONS: Elevated liver enzyme. Abdominal pain. Abnormal noncontrast abdomen CT demonstrating ga llbladder wall thickening CLINICAL DATA: This is the patient's sequela encounter. Patient reports that signs and symptoms have been present for 1 week and indicates a pain score of Nonresponsive. MEDICAL/SURGICAL HISTORY: . Hypertension. IV Drug use. Diabetic. None. COMPARISON: [facility] – [place], CT ABDOMEN & PELVIS W/O CONTRAST, 12/21/2017. . MEASUREMENTS: Liver:__ 20.8 cm. Common Bile Duct:___ Nonvisualized. Right Kidney:___12.8 x 5.0 x 6.4 cm. Left Kidney:___ . Spleen:___ . FINDINGS: Suboptimal visualization secondary to nonresponsive patient. Liver: The liver is mildly prominent in size with no focal mass or ductal dilatation. Portal Vein: There is abnormal biphasic flow in the portal vein. Common Duct: Could not be visualized. Gallbladder: There is diffuse gallbladder wall thickening measuring up to approximately 7 mm. There is echogenic sludge within the gallbladder with no distinct stones. Pancreas: The visualized portions are within normal limits Right Kidney: Normal echotexture and cortical thickness. No mass or hydronephrosis. Other: None. CONCLUSION: 1. Abnormal gallbladder wall thickening with heterogeneity. There is apparent echogenic sludge withi n the gallbladder with no distinct stones. 2. Mildly prominent liver with abnormal biphasic flow in the portal vein. 3. Nonvisualization of the common bile duct. 4. Suboptimal examination. Electronically signed by: Bartolo Yen MD 12/21/2017 7:15 PM EDT
--- NOTE | 2017-12-21 19:21 | P.PCN ---
Date of procedure: 12/21/17 Procedure: Date: 12/21/17 Procedure: Cardiopulmonary resucitation Indication: Asystolic cardiac arrest Details of procedure: Pt developed asystole cardiac arrest. Per ACLS protocol pt received CPR, manual bag-valve ventilation via ETT, epinephrine 2 mg IV, Bicarb 100 mEQ, Magnesium sulfate 2 gram IV. After 4 minutes resuscitation there was ROSC. Patient is on Bicarb drip, epinephrine drip. Prognosis is grave. Multiple attempts to contact patients mother were unsuccessful. Dr. Torsten Sy placed art line as per separate documentation.
--- NOTE | 2017-12-21 19:27 | P.PCN ---
Date of procedure: 12/21/17 Pre-op diagnosis: Cardiac arrest Post-op diagnosis: same Procedure: Right femoral arterial line placement Patient is status post cardiac arrest, with return of spontaneous circulation. Sterile and barrier precautions were used. The right femoral region was prepped using chlorhexidine scrub and draped in sterile fashion. The introducer needle was inserted into the femoral artery with good arterial flash obtained. A guidewire was advanced into the introducer needle. After this introducer needle removed and a 18-gauge 16 cm arterial line was introduced into the femoral artery and good wave form obtained. The wire was removed and the catheter was sutured in place at 15 cm. A sterile central line dressing was placed over the catheter at the insertion site. The patient tolerated the procedure well. Anesthesia: local Surgeon: Torsten Sy Estimated blood loss (mL): 2 Pathology: none sent Condition: critical Disposition: ICU
[2017-12-21] MEDS ORDERED: Phenylephrine Inj 160 MG in Sodium Chlor 0.9% Inj 484 ML IV.CONT PRN (19:28)
[2017-12-21] MEDS ORDERED: Sodium Bicarbonate 8.4% Inj 50 MEQ/50 ML Syringe IV.PUSH ONE (19:32)
[2017-12-21] MEDS ORDERED: Vasopressin Inj 40 UNIT in Sodium Chlor 0.9% Inj 98 ML IV.CONT SCH (20:00)
[2017-12-21] MEDS ORDERED: Sodium Bicarbonate 8.4% Inj 50 MEQ/50 ML Syringe IV.CONT ONE (20:18)
[2017-12-21] MEDS ORDERED: Calcium Chloride Inj 1 GM/10 ML Syringe IV.CONT ONE (20:18)
[2017-12-21 20:36] VITALS: BP 131/57; PULSE 133; TEMP 98.5
[2017-12-21 20:38] LABS: Amorphous Sediment,Urine Few /hpf; Bilirubin,Urine Negative (Negative); Clarity,Urine Cloudy (Clear); Color,Urine Amber (Yellw/Straw); Glucose,Urine (UA) 50 mg/dL (Negative); Hyaline Casts,Urine 4 /lpf (0-3); Leukocyte Esterase,Urine Negative (Negative); Mucus,Urine Many /lpf (Occasional); Nitrite,Urine Positive (Negative); Specific Gravity,Urine 1.039 (1.002-1.035); Squamous Epithelial Cell,Urine 1 /hpf (0-5); Urobilinogen,Urine 4 or Greater mg/dL (Less than 2)
[2017-12-21] MEDS ORDERED: levETIRAcetam 1000mg/100mL Inj 100 ML IV.SIG SCH (21:00)
[2017-12-21 21:40] VITALS: RESP 35
--- NOTE | 2017-12-22 07:41 | P.DN ---
Discharge Sum: Prov - Provider Primary care physician: No Primary Care Physician Admitting clinician: Stephen Grimm Consults: 11/04/17 05:39 Consult to Neurology Stat Consulting Provider: Barrera Robb For STAT consult, spoke directly to:: DR. Laureano Reason for Consultation: Brain Attack Notified:: Service Spoke with:: Ayala Date Notified:: 11/04/17 Time Notified:: 06:07 Ordering Provider: LYNN 11/04/17 06:34 Consult to Infectious Diseases Routine Consulting Provider: Clara Tellez Reason for Consultation: endocarditis Notified:: Service Spoke with:: Jassi Date Notified:: 11/04/17 Time Notified:: 06:46 Ordering Provider: ALEX 11/04/17 06:35 Consult to Neurosurgery Stat Consulting Provider: Ambrosio Barton For STAT consult, spoke directly to:: Dr. Barton Preferred Quality Associate:: Ambrosio Barton Reason for Consultation: SAH, d/w him in ED by phone at approx 6:20AM Notified:: Service Spoke with:: Stephany Date Notified:: 11/04/17 Time Notified:: 06:44 Ordering Provider: LYNN 11/06/17 08:52 Consult to Cardiothoracic Surgery Routine Consulting Provider: Elizabeth Barton Reason for Consultation: evaluate patient with large vegetation in AV causing mild obstruction, has MSSA endocarditis Notified:: Physician Spoke with:: Date Notified:: 11/06/17 Time Notified:: 09:02 Ordering Provider: SARA 11/24/17 16:12 Consult to Neuropsychology Routine Consulting Provider: Obie Flores Reason for Consultation: agitation on/off , CVA Notified:: Office Spoke with:: DAVID ON [employer] Date Notified:: 11/24/17 Time Notified:: 16:55 Ordering Provider: TOYA 12/21/17 10:05 Consult to Gastroenterology Routine Consulting Provider: Gerald Blackmon Reason for Consultation: abdominal pain. Notified:: Service Spoke with:: KELLEE Date Notified:: 12/21/17 Time Notified:: 10:49 Ordering Provider: DAWIT 12/21/17 16:23 Consult to Plant Nursery Worker Stat Consulting Provider: Torsten Sy For STAT consult, spoke directly to:: Reason for Consultation: respiratory distress. Notified:: Service Spoke with:: AMADA Date Notified:: 12/21/17 Time Notified:: 16:37 Ordering Provider: DAWIT 12/21/17 18:09 Consult to Infectious Diseases Routine Consulting Provider: Mildred Gardiner Reason for Consultation: septic shock Notified:: Service Spoke with:: Amada Date Notified:: 12/21/17 Time Notified:: 18:25 Ordering Provider: JUANITA Pronouncing clinician: Gauri Yung Discharge Sum: Diag - PCOD Cause of : Cardiac arrest (Metabolic acidosis and multiorgan failure due to septic shock. IVDU. ) Discharge Sum: Summary - Date and Time Date of admission: 11/04/17 06:33 Date of : 12/21/17 Time of : 20:19 - Summary Details: Patient had been transferred to ICU earlier in the day with septic shock, multiorgan failure, severe metabolic acidemia. He developed asystolic cardiac arrest and underwent CPR with initial ROSC. His mother was contacted and she was initially unavailable. She later called back and indicated that he should she wish for him to be DO NOT RESUSCITATE in the event of pulseless arrest. She was hopeful that she might arrived to the hospital before he passed. He was started on epinephrine, Alan-Synephrine, bicarb drips in an effort to stabilize. Nonetheless he had recurrent cardiac arrest and at 20: 19. His sister and mother arrived and were updated at bedside.. - Additional Data Confirmation of as documented by pronouncing clinician: no pulse, no respirations, no heart sounds, pupils fixed and dilated Family: contacted Attending physician: Jarrell Sewell MD Was code activated?: No (DNR ) Autopsy requested?: No road test examiner notified?: Yes Organ bank notified?: Yes Advance directives: No Hospice patient?: No
--- NOTE | 2017-12-22 12:21 | ECG ---
Date Performed: 12/21/2017 Time Performed: 10:53:35 PTAGE: 32 years EKG: SINUS TACHYCARDIA LOW QRS VOLTAGE IN EXTREMITY LEADS POSSIBLE ANTERIOR MYOCARDIAL INFARCTIO N , OF INDETERMINATE AGE ST segment depression is noted in lateral precordial leads. Compared to prev ious tracing there is no significant change. ABNORMAL ECG PREVIOUS TRACING : 11/04/2017 05.42 DOCTOR: Barrera Huerta Interpretating Date/Time 12/22/2017 12:21:20
== END 2017-12-21 20:19 | disposition expired ==
LOC: NEPE 05:21 → NEDA 06:33 → N03 09:43 → N05 11-19 17:48 → HIMC 12-21 16:15
PROVIDERS: ADMIT Internal Medicine; ATTEND Internal Medicine